=== PATIENT | female | born 1975 | race Caucasian/White ===

== ENCOUNTER 2021-11-29 10:09 | Outpatient (CLI) | payer MEDICAID, SELFPAY ==
[2021-11-29 14:07] LABS: Albumin* 3.8 g/dL (3.3-5.0); Chloride* 100 mmol/L (96-114); Potassium* 4.2 mmol/L (3.6-5.1); Sodium* 133 mmol/L (135-149)
[2021-11-29 14:09] LABS: Creatinine* 0.8 mg/dL (0.5-1.5); Estimated Glomerular Filt Rate 91 ml/min
[2021-11-29 14:10] LABS: Alanine Aminotransferase* 21 U/L (4-35); Alkaline Phosphatase* 78 U/L (40-150); Aspartate Amino Transferase* 25 U/L (12-35); Bilirubin Total* 0.3 mg/dL (0.1-1.5); Blood Urea Nitrogen* 6 mg/dL (5-24); Calcium* 8.9 mg/dL (8.4-10.6); Carbon Dioxide* 28 mmol/L (20-32); Glucose* 212 mg/dL (60-115)
== END 2021-11-29 10:10 | disposition home or self-care (01) ==
LOC: NFLDREF 10:10
PROVIDERS: PCP Family Medicine; Visit Provider Family Medicine
DX: R42 Dizziness and giddiness (principal); E66.01 Morbid (severe) obesity due to excess calories
CPT/HCPCS: 80053

== ENCOUNTER 2022-01-24 09:42 | Outpatient (CLI) | payer MEDICAID, SELFPAY ==
--- OUTSIDE RECORDS SUMMARY | 2022-01-24 09:45 | XMS_ITS | Encounter Summary ---
:1975 Author Organization [facility] Address [address] [place] [id number] Care Team Providers Name Role Phone Unavailable Primary Care Provider Unavailable Reason for Visit Reason Comments Follow up Encounter Details Date Type Department Care Team Description 12/02/2017 Office Visit [facility] Jacques Alcantara Polys ubstance dependence (HCC) (Primary Dx); Clinic - Jazmin Veliz MD Bipolar affective disorder i n remission (HCC) [address] [address] [address] [place] [address] Social History Tobacco Use Types Packs/Day Years Used Date Smoking Tobacco: Former Cigarettes 0 19 Quit : 03/01/2017 Smokeless Tobacco: Never Alcohol Use Standard Drinks/Week Comments Yes 1 (1 standard drink = 0.6 oz pure alcoho l) once a year Alcohol Habits Answer Date Recorded How often do you have a drink containing alcohol? Not asked How many drinks containing alcohol do you have on a typical Not asked day when you are drinking? How often do you have six or more drinks on one occasion? No t asked Comment: once a year 02/13/2014 Sex Assigned at Date Recorded Not on file documented as of this encounter Last Filed Vital Signs Vital Sign Reading Time Taken Comments Blood Pressure 110/80 12/02/2017 1:18 PM CDT Pulse 78 12/02/2017 1:18 PM CDT Temperature - - Respiratory Rate - - Oxygen Saturation 98% 12/02/2017 1:18 PM CDT Inhaled Oxygen Concentration - - Weight 96.1 kg (211 lb 14.4 oz) 12/02/2017 1:18 PM CDT Height 157.5 cm (5' 2) 12/02/2017 1:18 PM CDT Body Mass Index 38.76 12/02/2017 1:18 PM CDT documented in this encounter Progress Notes Jacques Alcantara MD - 12/02/2017 1:00 PM CDT SUBJECTIVE: 42 y.o. female for the following health concerns. Polysubstance dependence (HCC) - patient is back on both crack and methamphetamines. States that sheis entering into treatment on Thursday. She is currently in her 's home until she gets to treatment. Her last date of use per her report was 3 days ago. She is requesting that I fill benzodiazepines for her today. Bipolar affective disorder in remission (HCC) - patient states she is pretty much only been focusingon her drug use and not really taking her other medications. She does see psychiatry regularly. She is asking me about using her Adderall as well as diazepam today. Current Outpatient Prescriptions Medication Sig Dispense Refill ??? ADDERALL XR 15 mg oral extended release capsule 24 HR ??? cetirizine (ZYRTEC) 10 mg oral tablet Take 10 mg by mouth once daily. ??? Diaper,Brief, Adult,Disposable (DEPEND UNDERWEAR L-XL) 1 Each by [facility].(Non- Drug; Combo Route) route three times a day. 100 Each 3 ??? diazePAM (VALIUM) 10 mg oral tablet Take 1 tablet (10 mg) by mouth twice a day as needed. 30 tablet 1 ??? fluticasone (FLONASE) 50 mcg/actuation nasal spray Instill 2 sprays into EACH nare once daily. ??? omeprazole (PRILOSEC) 20 mg oral delayed release capsule Take 20 mg by mouth once daily before ameal. ??? rOPINIRole (REQUIP) 3 mg oral Tab Take 1 tablet (3 mg) by mouth once daily. 90 tablet 3 ??? topiramate (TOPAMAX) 100 mg oral tablet Take 1 tablet (100 mg) by mouth once daily. 90 tablet 3 ??? traZODone (DESYREL) 300 mg oral tablet TAKE 1 TABLET(300 MG) BY MOUTH AT BEDTIME NEEDED 90 tablet 1 ??? ziprasidone hcl (GEODON) 60 mg oral capsule Take 1 capsule (60 mg) by mouth at bedtime. (Patienttaking differently: Take 60 mg by mouth Twice a Day. ) 90 capsule 1 No current facility-administered medications for this visit. Allergies: Cat dander; Dog dander; and Tree and shrub pollen No LMP recorded (lmp unknown). Patient has had a hysterectomy. ROS: Feeling concerned Respiratory symptoms none No dyspnea or chest pain on exertion. Psych as above. OBJECTIVE: The patient appears in NAD. BP 110/80 Pulse 78 Ht 1.575 m (5' 2) Wt 96.1 kg (211 lb 14.4 oz) LMP (LMP Unknown) SpO2 98% BMI 38.76 kg/m?? ISAC. Lungs are clear, good air entry, no wheezes, rhonchi or rales. S1 and S2 normal, no murmurs, regular rate and rhythm. No edema. Psych - Judgment and mental status are not clear, patient has poor insight. Mood is anxious. ASSESSMENT/PLAN: Polysubstance dependence (HCC) - counseled patient and her 25 minutes on goals of treatment.Discussed common language as they are at odds currently but working towards the same goal. Reviewed getting into treatment Thursday is the most important thing. Discussed with safety concerns forhimself in the family. Reviewed trigger avoidance in addition to avoiding contact with her sister who herself is a large user. Bipolar affective disorder in remission (HCC) Discussed I defer to her psychiatrist for use of this but would encourage her not to use any controlled substances at this time. Pt to return if sx worsen or fail to improve, sooner as needed. Total of 25 minutes spent with pt >50% on counseling and/or coordination of cares. Options for treatment and follow-up care were reviewed with the patient and/or guardian. Maria Del Rosario Servin and/or guardian engaged in the decision making process and verbalized understanding of the optionsdiscussed and agreed with the final plan. documented in this encounter Plan of Treatment Not on filedocumented as of this encounter Visit Diagnoses Diagnosis Polysubstance dependence (HCC) - Primary Combinations of drug dependence excludin g opioid type drug, unspecified Bipolar affective disorder in remission (HCC) documented in this encounter
--- OUTSIDE RECORDS SUMMARY | 2022-01-24 09:45 | XMS_ITS | Encounter Summary ---
:1975 Author Organization [facility] Address [address] [place] [address] Care Team Providers Name Role Phone Unavailable Primary Care Provider Unavailable Reason for Referral Consultation (Routine) - Closed Specialty Diagnoses / Procedures Referred By Contact Refer red To Contact Spine/Back Specialist Diagnoses Acute right-sided low back pain with right-sided sciatica Jacques Alcantara MD Md, Not Listed [id number] [facility] [address] [place] [address] Referral ID Status Reason Start Date Expiration Date Visits V isits Requested Authorized [id number] Closed Specialty 07/29/2018 [address] Barboza [facility] [place] Reason for Visit Reason Comments Medication management Rx refill Back pain Back injury fell down steps (5) landed o n buttocks. x 1 month Encounter Details Date Type Department Care Team Description 07/29/2018 Office Visit [facility] Jacques Alcantara Acute right-sided low back pain with right-sided sciatica (Primary Dx); Clinic - Jazmin Veliz MD Seasonal allergic rhinitis d ue to other allergic trigger; [address] [facility] [address] esophageal reflux disease, esophagitis presence not specified; 100 Bipolar affective disorder i n remission ([facility]); [place] (restless [place] syndrome); [id number] Insomnia, unspecified type [phone] Social History Tobacco Use Types Packs/Day Years Used Date Smoking Tobacco: Every Day Cigarettes 0 19 L ast attempted to quit: 03/01/2017 Smokeless Tobacco: Never Alcohol Use Standard [...] Sign Reading Time Taken Comments Blood Pressure 120/80 07/29/2018 2:53 PM CDT Pulse 69 07/29/2018 2:53 PM CDT Temperature 36.6 ??C (97.8 ??F) 07/29/2018 2:53 PM CDT Respiratory Rate 16 07/29/2018 2:53 PM CDT Oxygen Saturation 97% 07/29/2018 2:53 PM CDT Inhaled Oxygen Concentration - - Weight 103 kg (227 lb 1.6 oz) 07/29/2018 2:53 PM CDT Height 157.5 cm (5' 2) 07/29/2018 2:53 PM CDT Body Mass Index 41.54 07/29/2018 2:53 PM CDT documented in this encounter Progress Notes Jacques Alcantara MD - 07/29/2018 3:00 PM CDT SUBJECTIVE: 43 y.o. female for the following health concerns. Acute right-sided low back pain with right-sided sciatica -patient is concerned of right-sided low back pain. Reports recent slip and fall down some stairs which acutely exacerbated her chronic back symptoms. Previously treated at [facility] [place] and felt they were quite good. Requesting pain m edication from us today. She just discharged from a drug abuse rehab facility and reports she is remaining sober at this time. Seasonal allergic rhinitis due to other allergic trigger -states that her allergies are already bothering her requesting refills on both her antihistamine and nasal steroid. Gastroesophageal reflux disease, esophagitis presence not specified -10 used to have issues with acid reflux requesting refill today. Bipolar affective disorder in remission (HCC) patient is requesting that I refill her psychiatric medications. She reports she is trying to get established with a new psychiatrist due to proximity. RLS (restless legs syndrome) -patient continues to struggle with restless legs and would like a refill on her Requip at all today Insomnia, unspecified type -patient reports trazodone is working well she is at 200 mg a day down from 400 mg that she reports psychiatry was prescribing. Current Outpatient Medications Medication Sig Dispense Refill ??? cetirizine (ZYRTEC) 10 mg oral tablet Take 1 tablet (10 mg) by mouth once daily. 90 tablet 3 ??? Diaper,Brief, Adult,Disposable (DEPEND UNDERWEAR L-XL) 1 Each by [facility].(Non- Drug; Combo Route) route three times a day. 100 Each 3 ??? diazePAM (VALIUM) 10 mg oral tablet Take 1 tablet (10 mg) by mouth twice a day as needed. 30 tablet 1 ??? fluticasone (FLONASE) 50 mcg/actuation nasal spray Instill 2 sprays into EACH nare once daily. 16 g 11 ??? hydrOXYzine HCl (ATARAX) 50 mg oral tablet TK 1/2 T PO QID PRA AND PANIC 1 ??? naproxen (NAPROSYN) 250 mg oral tablet Take 1 tablet (250 mg) by mouth twice a day as needed. 120 tablet 3 ??? omeprazole (PRILOSEC) 20 mg oral delayed release capsule Take 1 capsule (20 mg) by mouth once daily. 90 capsule 3 ??? rOPINIRole (REQUIP) 3 mg oral Tab Take 1 tablet (3 mg) by mouth once daily. 90 tablet 3 ??? traZODone (DESYREL) 100 mg oral tablet Take 2 tablets (200 mg) by mouth at bedtime as needed forSleep. 60 tablet 0 ??? ziprasidone hcl (GEODON) 60 mg oral capsule Take 1 capsule (60 mg) by mouth at bedtime. (Patienttaking differently: Take 80 mg by mouth twice a day. ) 90 capsule 1 No current facility-administered medications for this visit. Allergies: Cat dander; Dog dander; and Tree and shrub pollen No LMP recorded (lmp unknown). Patient has had a hysterectomy. ROS: Feeling poorly Respiratory symptoms none No dyspnea or chest pain on exertion. No abdominal pain, change in bowel habits. No urinary tract symptoms. MSK as above Psych as above. OBJECTIVE: The patient appears well, in NAD. BP 120/80 (BP Cuff Site: Left arm, BP Cuff Position: Sitting, BP Cuff Size: Large adult) Pulse 69 Temp 97.8 ??F (36.6 ??C) (Oral) Resp 16 Ht 1.575 m (5' 2) Wt 103 kg (227 lb 1.6 oz) LMP (LMP Unknown) SpO2 97% BMI 41.54 kg/m?? Ears normal. ISAC. Lungs are clear, good air entry, no wheezes, rhonchi or rales. S1 and S2 normal, no murmurs, regular rate and rhythm. No edema. Neck: -Inspection: no obvious deformity. -Palpation: no tenderness along the spinous processes, there is tenderness to palpation in the right lumbosacral paraspinous muscles and soft tissue on self palpation. -ROM: full to flexion, extension, side bends, rotation. -Strength: full and symmetrical to knee flexion, knee extension, hip flexion, hip adduction, hip abduction, ankle dorsiflexion, ankle plantarflexion. -Reflexes: patellar reflexes symmetrical and normal. ASSESSMENT/PLAN: Acute right-sided low back pain with right-sided sciatica - Plan: naproxen (NAPROSYN) 250 mg oral tablet, [facility] provided patient some naproxen and instructions on use along with food. Discussed home exercises and referral back to spine MD for physical therapy hopefully. Will await their recommendations. Seasonal allergic rhinitis due to other allergic trigger - Plan: cetirizine (ZYRTEC) 10 mg oral tablet, fluticasone (FLONASE) 50 mcg/actuation nasal spray refilled for patient today without changes. Gastroesophageal reflux disease, esophagitis presence not specified - Plan: omeprazole (PRILOSEC) 20mg oral delayed release capsule refilled for patient today without changes. Bipolar affective disorder in remission (HCC) discussed continue to work with psychiatrist if she does transition she should continue seeing her old psychiatrist until she is established with a new one. She expressed understanding. Discussed her psychiatrist should refill all of her psychiatric medications as they have been adjusting doses in recent weeks. RLS (restless legs syndrome) - Plan: rOPINIRole (REQUIP) 3 mg oral Tab refilled today. Insomnia, unspecified type - Plan: traZODone (DESYREL) 100 mg oral tablet - reviewed with patient that I will give her a one-month supply of the Requip but all of her other psychiatric medications need to be filled through psychiatry given their interactions with each other. She expressed her understanding. Pt to return if sx worsen or fail to improve, sooner as needed. Options for treatment and follow-up care were reviewed with the patient and/or guardian. Maria Del Rosario Servin and/or guardian engaged in the decision making process and verbalized understanding of the optionsdiscussed and agreed with the final plan. documented in this encounter Plan of Treatment Scheduled Referrals Name Type Priority Associated Diagnoses Order S chedule [facility] Follow Up Routine Acute right-sided l ow Ordered: 07/29/2018 back pain with right-sided sciatica documented as of this encounter Visit Diagnoses Diagnosis Acute right-sided low back pain with rig ht-sided sciatica - Primary Seasonal allergic rhinitis due to other allergic trigger Gastroesophageal reflux disease, esophag itis presence not specified Bipolar affective disorder in remission (HCC) RLS (restless legs syndrome) Restless legs syndrome (RLS) Insomnia, unspecified type documented in this encounter
--- OUTSIDE RECORDS SUMMARY | 2022-01-24 09:45 | XMS_ITS | Encounter Summary ---
:1975 Author Organization [facility] Address [address] [place] [address] Care Team Providers Name Role Phone Unavailable Primary Care Provider Unavailable Reason for Referral (Routine) - Auth-No PA/Ref Req Specialty Diagnoses / Procedures Referred By Contact Refer red To Contact Diagnoses Sacroiliac pain Robert Taveras MD Procedures IPC FLUORO GUIDED PROCEDURE [address] [place] [address] Referral ID Status Reason Start Date Expiration Date Visits V isits Requested Authorized [id number] Auth-No 09/22/2017 1 1 PA/Ref Req Reason for Visit Consultation (Routine) - Auth-No PA/Ref Req Specialty Diagnoses / Procedures Referred By Contact Refer red To Contact Pain Management Diagnoses Chronic bilateral low back pain without sciatica Martha Balderrama, Specialist, Comprehensive PA-C [facility] - [address] [place] [address] [facility] [address] [place], [place] [address] [address] [facility] [place] [address] Phone: Referral ID Status Reason Start Expiration Visits Visits Date Date Requested Authorized [id number] Auth-No Specialty 09/17/2017 1 1 PA/Ref Req Services Required Encounter Details Date Type Department Care Team Description 10/28/2017 Hospital Encounter [facility] Vivian Taveras, Comprehensive [facility] [address] [facility] [address] [place] [address] [place] [phone] [id number] Social History Tobacco Use Types Packs/Day Years [...] Sign Reading Time Taken Comments Blood Pressure 132/89 10/28/2017 11:10 AM CDT Pulse 88 10/28/2017 11:10 AM CDT Temperature - - Respiratory Rate - - Oxygen Saturation 97% 10/28/2017 11:10 AM CDT Inhaled Oxygen Concentration - - Weight - - Height - - Body Mass Index - - documented in this encounter Discharge Instructions Patient InstructionsGato Dutta APRN, COLLAR STITCHER - 10/28/2017 10:14 AM CDT HOME CARE INSTRUCTIONS ACTIVITY ??? Rest today ??? Do not work today ??? Resume normal activity tomorrow as tolerated. PAIN ??? You may experience soreness at the injection site for 1-2 days. ??? If pain, you may use an ice pack for 20 minutes every 2-4 hours for the first 24 hours ??? If pain, you may use a heating pad for 20 minutes every 2-4 hours for the first 24 hours ??? You may restart your current pain medications today. OTHER SYMPTOMS ??? You may experience numbness or weakness radiating into your legs or arms, (depending on the procedure location) that may persist for the day of your procedure. Until sensation and strength returns to normal, please use caution in walking, climbing stairs, stepping out of your vehicle, etc. ??? Common side effects of corticosteroids: o Not everyone will experience corticosteroid side effects. If side effects are experienced, they will gradually subside in the 3-7 day period following an injection. o Flushed face and/or chest o Feeling of warmth, particularly in face but could be overall feeling of warmth o Increased blood sugar in diabetic patients o Menstrual irregularities may occur. If taking hormone based- control, a supplemental method of control is recommended o Sleep disturbances and/or mood swings are possible o Leg cramps SAFETY ??? If sedation was administered, it is important for the rest of the day you do not: o Drive a vehicle or operate heavy machinery o Consume alcohol o Sign important documents or legal papers ??? Contact your physician if you have: o Fever >100.5 F within 2 weeks of the procedure o Signs of infection (redness, swelling, drainage at the site of needle entry) o New sustained weakness, >8 hours after the procedure If you have questions, please contact our office at [phone] between the hours of 8:00 am and 4:00 pm, Thursday through Thursday. After hours, if you need immediate attention, we recommend you go to the hospital emergency room. Please schedule a follow-up appointment for approximately four weeks with the [facility] after the procedure or with your referring provider. SEDATION AFTER CARE INSTRUCTIONS Today you were given medicine for pain or sedation. This medicine can cause you to: be sleepy, not think clearly, feel less coordinated. For 12 OR 24 hours after receiving the medicine: ?? Have an adult stay with you. Remain at home and rest during that time. You may not return to work. ?? To prevent [place], do not smoke without an adult present. ?? Be careful when you bathe, shower, cook, or use electrical devices. ?? Avoid rapid movement as dizziness may result. ?? Begin eating light foods, such as cereal or toast. Resume usual diet. ?? Do not drink alcohol for 24 hours. ?? Do not drive or operate any heavy equipment for at least 12 hours after sedation. ?? Delay important decision-making. Don't sign any important papers. ?? No pain meds or sleeping pills for 4 hours after last dose given before discharge. documented in this encounter Medications at Time of Discharge Medication Sig Dispensed Refills Start Date End Date diazePAM (VALIUM) 10 mg Take 1 tablet (10 30 tablet 1 11/13 oral tabletIndications: mg) by mouth twice Depression with anxiety a day as needed. ziprasidone hcl (GEODON) Take 1 capsule (60 90 capsule 1 60 mg oral mg) by mouth at capsuleIndications: bedtime. Bipolar affective disorder in remission (HCC) ADDERALL XR 15 mg oral 0 09/01/2017 extended release capsule 24 HR Diaper,Brief, 1 Each by 100 Each 3 01/04/2016 06/04/2020 Adult,Disposable (DEPEND Misc.(Non-Drug; UNDERWEAR L-XL) Combo Route) route Indications: Urinary three times a day. incontinence, unspecified type doxycycline hyclate Take 1 tablet (100 14 tablet 0 09/18/19 18 12/02/2017 (VIBRAMYCIN) 100 mg oral mg) by mouth twice tabletIndications: a day. Bronchitis oxymetazoline 0.05% Instill 2 sprays 15 mL 0 10/27/2017 10/30/2017 (AFRIN, OXYMETAZOLINE,) into EACH nare 0.05 % Nasal [place] nasal twice a day for 3 spray days. sodium chloride 0.65% Instill 1-2 Sprays 1 Bottle 11 201412/02/2017 (SALINE NASAL MIST) 0.65 into EACH nare % Nasal [place] every 1 (one) hour SprAIndications: Sinus as needed. headache, Dizziness topiramate (TOPAMAX) 100 Take 1 tablet (100 90 tablet 3 01/27/2018 mg oral mg) by mouth once tabletIndications: daily. Migraine without status migrainosus, not intractable, unspecified migraine type traZODone (DESYREL) 300 TAKE 1 TABLET(300 90 tablet 1 09/0107/29/2018 mg oral MG) BY MOUTH AT tabletIndications: BEDTIME NEEDED Bipolar affective disorder in remission (HCC) varenicline (CHANTIX) 1 Take 1 mg by mouth 0 12/02/2017 mg oral tablet 2 times daily with meals. documented as of this encounter Procedure Notes Robert Taveras MD - 10/28/2017 11:13 AM CDTProcedure(s): INJECT FOR SACROILIAC JOINT Pre-Procedure Diagnose(s): Sacroiliac joint dysfunction of right side Post-Procedure Diagnose(s): Sacroiliac joint dysfunction of right side [facility] SACROILIAC JOINT INJECTION Patient Name: Maria Del Rosario Servin Address: [address] [place] [address] Primary Care Provider: Martha Balderrama PA-C CHIEF COMPLAINT Low back pain INTERVAL HISTORY Maria Del Rosario Servin is a 42 y.o. female with a history of low back pain. PROCEDURE Right sacroiliac joint Injection with fluoroscopic guidance and contrast control. PROCEDURE DETAILS After written informed consent was obtained from the patient, the patient was escorted to the procedure room. The patient was placed in the prone position. A time out was conducted to verify patient identity, procedure to be performed, side, site, allergies and any special requirements. The skin over the lumbosacral region was prepped and draped in normal sterile fashion. Fluoroscopy was used to identify the posteroinferior region of the right sacroiliac joint. The skin was anesthetized with 2 mL of2% lidocaine with bicarbonate buffer. Using fluoroscopic guidance, a 22 gauge, 5?? Quincke spinal needle was advanced into the joint from an inferior lateral approach. After negative aspiration, 0.5 ml of Omnipaque contrast was injected showing intra-articular spread of contrast without evidence of intravascular spread. 3 mL of solution consisting of 80 mg of methylprednisolone and 2 cc of 2% lidocaine was injected slowly into the joint. After injection of the medication, the needle was removed. The patient had intravenous sedation during the procedure. The patient was monitored for blood pressure and oxygen saturation during the procedure. The patient was alert and responsive to questions throughout the procedure. The patient tolerated the procedure well and was observed in the post-procedural area. The patient was discharged without apparent complications. FRANK - 05/19/17: Per Johnathan Sy PA-C 06/02/17 dictation: L5-S1 fusion solid. Moderate stenosis of L5-S1 chronic and minimal disc bulge L4-5. ?? TREATMENTS TRIED: The patient has tried Physical Therapy - Somewhat helpful, Chiropractic - Yes somewhat helpful,??Therapeutic Injections Or Procedures: Yes 12/12/14 epidural - states was painful, ??Behavioral Health (sees command and control specialist currently), Surgery - Yes, L5-S1 fusion 10/2015 (per [facility] note, no further surgery recommended). The patient has tried Topamax/Topirimate, Celebrex, Ibuprofen/Advil (not helpful), Vicodin, Oxycontin/Oxycodone (helpful), and Flexeril (not helpful), methocarbamol (not helpful) DIAGNOSIS 1. Sacroiliac joint dysfunction PLAN 1. Performed a right sacroiliac joint injection. 2. The patient will be seen back in clinic within the next three to four weeks for evaluation of progress. Robert Taveras MD Diplomate of the [place] [employer]esthesiology, Pain Medicine documented in this encounter Miscellaneous Notes Addendum Note - Aleta Laurent - 10/28/2017 12:06 PM CDTEncounter addended by: Aleta Laurent on: 10/28/2017 12:06 PM
Actions taken: MAR adminis tration accepted Addendum Note - Gato Dutta APRN, CNP - 10/28/2017 11:27 AM CDTEncounter addended by: Gato Dutta APRN, CNP on: 10/28/2017 11:27 AM
Actions taken: Visit Navigator Flowsheet section accepted documented in this encounter Plan of Treatment Not on filedocumented as of this encounter Procedures Procedure Name Priority Date/Time Associated Diagnosis Comme nts IPC FLUORO GUIDED Routine 10/28/2017 11:06 AM Sacroiliac pain Results for this PROCEDURE 20 CDT procedure are i n the results section. documented in this encounter Results IPC Fluoro Guided Procedure 20 (10/28/2017 11:06 AM CDT) Specimen (Source) Anatomical Location Collection Method / Collectio n Time Received Time / Laterality Volume Narrative Sysdef, Ris Silent Scheduling - 10/29/19 18 11:06 AM CDT To access procedure report, please refer to Epic Chart Review under the Procedure tab. Robert Taveras MD IR ORDERABLE documented in this encounter Visit Diagnoses Diagnosis Sacroiliac pain - Primary Disorders of sacrum documented in this encounter Administered Medications Inactive Administered Medications - up to 3 most recent administrations Medication Order MAR Action Action Date Dose Rate Site FENTANYL (PF) 50 MCG/ML INJECTION Given 10/28/2017 10:50 AM CDT 50 mcg SOLUTION 1 dose, Starting on Thu10/28/17 at 1052, Until Thu10/28/17 at 1050 IOHEXOL 240 MG IODINE/ML INTRAVENOUS Given 10/28/2017 10:45 AM C DT Procedural SOLUTION 1 dose, Starting on Thu10/28/17 at 1033, Until Thu10/28/17 at 1045 LIDOCAINE (PF) 20 MG/ML (2 %) INJECTION Given 10/28/2017 10:45 A M CDT Procedural SOLUTION 1 dose, Starting on Thu10/28/17 at 1033, Until Thu10/28/17 at 1045 METHYLPREDNISOLONE ACETATE 80 MG/ML Given 10/28/2017 10:45 AM CD T Procedural SUSPENSION FOR INJECTION 1 dose, Starting on Thu10/28/17 at 1032, Until Thu10/28/17 at 1045 MIDAZOLAM (PF) 1 MG/ML INJECTION SOLUTIO N Given 10/28/2017 10:52 AM CDT 1 mg 1 dose, Starting on Thu10/28/17 at 1052, Until Thu10/28/17 at 1052 SODIUM BICARBONATE 1 MEQ/ML (8.4 %) Given 10/28/2017 10:45 AM CD T Procedural INTRAVENOUS SOLUTION 1 dose, Starting on Thu10/28/17 at 1032, Until Thu10/28/17 at 1045 documented in this encounter
--- OUTSIDE RECORDS SUMMARY | 2022-01-24 09:45 | XMS_ITS | Encounter Summary ---
:[address] [facility] Address [address] [place] [address] Care Team Providers Name Role Phone Jacques Alcantara MD Primary Care Provider [facility] Unavailable Medical Reason for Referral Consultation (Routine) - Closed Specialty Diagnoses / Procedures Referred By Contact Refer red To Contact Psychiatry Diagnoses Bipolar affective disorder in remission (HCC) Depression with anxiety Episodic drug abuse (HCC) Insomnia, unspecified type Jacques Alcantara MD Md, Not Listed [id number] [place] [address] Referral ID Status Reason Start Date Expiration Date Visits V isits Requested Authorized [id number] Closed Specialty 06/05/2020 06/05/2021 1 1 Services Required Comments [facility] [address] [address] [place] [address] ?? ~48.1 mi OR UI DESIGNER Reason for Visit Reason Comments Rx refill refill metications Encounter Details Date Type Department Care Team Description 06/05/2020 Virtual Visit [facility] Jacques Alcantara Bipolar aff ective disorder in remission (HCC) (Primary Dx); [facility] [place] Seasonal all ergic rhinitis due to other allergic trigger; [place] Acute right-sided low back p ain with right-sided sciatica; [address] Gastroesopha geal reflux disease; [address] Depression with anxiety; [place], [place] Episodic drug abuse (HCC); [phone] Insomnia, unspecified type [phone] Social History Tobacco Use Types Packs/Day Years Used Date Smoking Tobacco: Every Day Cigarettes 0 19 L ast attempted to quit: 03/01/2017 Smokeless Tobacco: Current Alcohol Use Standard Drinks/Week Comments Yes 1 [...] Assigned at Date Recorded Not on file COVID-19 Exposure Response Date Recorded In the last month, have you been in contact with No / Unsure 06/04/2020 1:33 PM 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 documented as of this encounter Progress Notes Jacques Alcantara MD - 06/05/2020 10:00 AM CST Maria Del Rosario Servin presents today via telehealth visit for Rx refill (refill metications) Bipolar affective disorder in remission (HCC)/Depression with anxiety states that she is currently living with her sister and she is sober however her sister at least the one I know has previously had multiple issues with drug use. Episodic drug abuse (HCC) patient reports she is currently sober. Insomnia, unspecified type Patient reports that she is still having issues sleeping. Seasonal allergic rhinitis due to other allergic trigger Would like refills on her allergy medication she has both year-round and seasonal issues requesting refill on Flonase and Zyrtec. Acute right-sided low back pain with right-sided sciatica - Patient takes 1 or 2 pills/day depending on the severity of her symptoms. Requesting refill today. Gastroesophageal reflux disease - Patient denies any overwhelming GERD symptoms associated with NSAID use. Would like to refill her acid reflux medicine today Problem list, Medications, and Allergies were reviewed in [email or web address] EMR. O: LMP (LMP Unknown) General: Calm, no acute distress Psych: Mood and behavior appropriate A/P: Maria Del Rosario was seen today for rx refill. Diagnoses and all orders for this visit: Bipolar affective disorder in remission (HCC) Depression with anxiety Episodic drug abuse (HCC) Insomnia, unspecified type - REFERRAL PSYCHIATRY -reviewed with patient establishing care with a psychiatrist to really start all medications and evaluate for efficacy. Discussed we will not be providing any of her psychiatry medications she expressed her understanding. Referral provided today to local psychiatrist in [facility] Seasonal allergic rhinitis due to other allergic trigger - cetirizine (ZYRTEC) 10 mg oral tablet; TAKE 1 TABLET BY MOUTH DAILY - fluticasone (FLONASE) 50 mcg/actuation nasal spray; SHAKE AND USE 2 SPRAYS IN EACH NOSTRIL DAILY refilled for patient today without changes Acute right-sided low back pain with right-sided sciatica - naproxen (NAPROSYN) 250 mg oral tablet; TAKE 1 TABLET BY MOUTH TWICE A DAY NEEDED refilled for patient today without changes Gastroesophageal reflux disease - omeprazole (PRILOSEC) 20 mg oral delayed release capsule; TAKE 1 CAPSULE BY MOUTH DAILY filled forpatient today without changes This visit was completed via interactive telehealth by Jacques Alcantara MD by audio only. The patient (or guardian) is aware the visit is a telehealth visit and verbally consents to proceeding, including use of outside records via Care Everywhere as needed. Present for the visit include Maria Del Rosario Servin and none. The visit was conducted via telehealth due to COVID-19 pandemic.. Patient is located at home. Provider is located at [facility]. Total time spent today for visit was 10 minutes and included: Direct [id number] time, Review of records and Coordination of care. Full vital signs not obtained due to telehealth. Any recorded vitals are self- reported by patient. Jacques Alcantara MD OR UI DESIGNER documented in this encounter Plan of Treatment Scheduled Referrals Name Type Priority Associated Diagnoses Order S [facility] REFERRAL PSYCHIATRY Referral Routine Bipolar affective dis order Ordered: 06/05/2020 in remission (HC C) Depression with anxiety Episodic drug ab use Insomnia, unspecified type documented as of this encounter Visit Diagnoses Diagnosis Bipolar affective disorder in remission (HCC) - Primary Seasonal allergic rhinitis due to other allergic trigger Acute right-sided low back pain with rig ht-sided sciatica Gastroesophageal reflux disease Esophageal reflux Depression with anxiety Dysthymic disorder Episodic drug abuse (HCC) Other, mixed, or unspecified nondependen t drug abuse, episodic Insomnia, unspecified type documented in this encounter Care Teams Manager Environmental Affairs Relationship Specialty Start Date End Date Jacques Alcantara MD PCP - General Family Medicine 06/05/20 [facility] PCP - Primary Care Clinic [facility] [address] [place] [address] documented as of this encounter
--- OUTSIDE RECORDS SUMMARY | 2022-01-24 09:45 | XMS_ITS | Encounter Summary ---
:1975 Author Organization [facility] Address [address] [place] [address] Care Team Providers Name Role Phone Unavailable Primary Care Provider Unavailable Reason for Referral Consultation (Routine) - Auth-No PA/Ref Req Specialty Diagnoses / Procedures Referred By Contact Refer red To Contact Pain Management Diagnoses Chronic bilateral low back pain without sciatica Martha Balderrama, Specialist, [facility] - [address] [facility] [address] [place] [phone] [place] [phone] Phone: Referral ID Status Reason Start Expiration Visits Visits Date Date Requested Authorized [id number] Auth-No Specialty 09/17/2017 1 1 PA/Ref Req Services Required Reason for Visit Reason Comments Rx refill Encounter Details Date Type Department Care Team Description 09/17/2017 Office Visit [facility] Martha Balderrama onic bilateral low back pain without sciatica (Primary Dx); Clinic - [place] SON[place] Obesity, unspecified classification, uns pecified obesity type, unspecified whether serious comorbidity present; [facility] [address] Cough; [address] Frank [address] Bronchitis [address] [place], [place] [phone] (Wo rk) Social History Tobacco Use Types Packs/Day Years [...] Sign Reading Time Taken Comments Blood Pressure 122/86 09/17/2017 12:51 PM CDT Pulse 99 09/17/2017 12:51 PM CDT Temperature 36.6 ??C (97.8 ??F) 09/17/2017 12:51 PM CDT Respiratory Rate 14 09/17/2017 12:51 PM CDT Oxygen Saturation - - Inhaled Oxygen Concentration - - Weight 99.8 kg (220 lb) 09/17/2017 12:51 PM CDT Height 154.9 cm (5' 1) 09/17/2017 12:51 PM CDT Body Mass Index 41.57 09/17/2017 12:51 PM CDT documented in this encounter Progress Notes Martha Balderrama PA-C - 09/17/2017 1:00 PM CDT [facility] Maria Del Rosario Servin 1975 CC: Rx refill SUBJECTIVE: Maria Del Rosario Servin is a 42 y.o. female presents for refill on oxycodone. She states she used to be a patient with Dr. Alcantara. Reviewed [employer] with her and she has been getting refills of Percocet from Vic WILHELM. She was told by him that she cannot get refills from him anymore and needs to get refillsfrom her primary doctor. Reviewing her notes, Dr. Graf referred her to pain management. She saw back in 2013. She was seen by Patti Mason DNP in March 2016 for same pain. She has spondylolisthesis of her lumbar spine. She also had a L5-S1 spinal fusion by Dr. Gavin Marks on November 07, 2015. Patient also has allergies including runny nose, itchy eyes, sneezing. She takes Zyrtec and Flonase for those. She also has a cough, productive with dark brown phlegm x 2 weeks. Also some shortness of breath. Denies any fever, chills, sweats, body aches, headache, lightheadedness, abdominal pain, nausea, vomiting, diarrhea, constipation. She states she had a cold last week. ROS: See HPI Medications: Current Outpatient Prescriptions on File Prior to Visit Medication Sig Dispense Refill ??? cetirizine (ZYRTEC) 10 mg oral tablet Take 10 mg by mouth once daily. ??? Diaper,Brief, Adult,Disposable (DEPEND UNDERWEAR L-XL) 1 Each by [facility] [place] [place].(Non- Drug; Combo Route) route three times a [...] by mouth once daily before ameal. ??? oxyCODONE-acetaminophen (PERCOCET) 10-325 mg oral Tab Take 1-2 Tabs by mouth every 6 (six) hoursas needed (pain). ??? rOPINIRole (REQUIP) 3 mg oral Tab Take 1 tablet (3 mg) by mouth once daily. 90 tablet 3 ??? sodium chloride 0.65% (SALINE NASAL MIST) 0.65 % Nasal [place] SprA Instill 1- 2 Sprays into EACH nare every 1 (one) hour as needed. 1 Bottle 11 ??? topiramate (TOPAMAX) 100 mg oral tablet Take 1 tablet (100 mg) by mouth once daily. 90 tablet 3 ??? traZODone (DESYREL) 300 mg oral tablet TAKE 1 TABLET(300 MG) BY MOUTH AT BEDTIME NEEDED 90 tablet 1 ??? varenicline (CHANTIX) 1 mg oral tablet Take 1 mg by mouth 2 times daily with meals. ??? ziprasidone hcl (GEODON) 60 mg oral capsule Take 1 capsule (60 mg) by mouth at bedtime. (Patienttaking differently: Take 60 mg by mouth Twice a Day. ) 90 capsule 1 No current facility-administered medications on file prior to visit. Allergies: Allergies as of 09/17/2017 - Reviewed 09/17/2017 Allergen Reaction Noted ??? Cat dander 04/07/2017 ??? Dog dander 04/07/2017 ??? Tree and shrub pollen 04/07/2017 PMHX: Past Medical History: Diagnosis Date ??? Asthma mild intermittant/ more inWinter ??? Bipolar disorder (HCC) [facility] ??? Chronic mental illness 1990 ??? Depression with anxiety ??? Heartburn ??? Insomnia trazadone tx works well ??? Lumbar vertebral fracture (HCC) 1988 L4 or L5 ??? RLS (restless legs syndrome) 2004 requip works well hs FHX: Family History Problem Relation Age of Onset ??? Negative Hx Father unknown ??? Diabetes Mother ??? Autism Son ??? Colon Cancer Maternal Grandmother ??? Drug Abuse Sister ??? Depression Sister ??? Mental Illness Sister ??? Cancer Sister stomach ??? Other Disease Son hereditary microspirtosis SHX: Social History Social History ??? Marital status: Single Spouse name: N/A ??? Number of children: 2 ??? 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 Smoking status: Former Smoker Packs/day: 0.00 Years: 19.00 Types: Cigarettes Quit date: 03/01/2017 ??? Smokeless tobacco: Never Used ??? Alcohol use 0.6 oz/week 1 Cans of beer per week Comment: once a year ??? Drug use: Yes Frequency: 7.0 times per week Types: Marijuana Comment: smokes once daily for back pain ??? Sexual activity: Yes Partners: Male Other Topics Concern ??? Not on file Social History Narrative ??? No narrative on file OBJECTIVE: Vitals: 09/17/17 1251 BP: 122/86 BP Cuff Site: Left arm BP Cuff Position: Sitting BP Cuff Size: Large adult Pulse: 99 Resp: 14 Temp: 97.8 ??F (36.6 ??C) TempSrc: Oral Weight: 99.8 kg (220 lb) Height: 1.549 m (5' 1) Body mass index is 41.57 kg/m??. General appearance: Patient is in NAD, A&Ox's 3, WN/WD, nontoxic Head: Normal cephalic, atraumatic Eyes: ISAC, EOMI, no injection Ears: TMI, no erythremia or effusion. Canals clear. Nose: Patent bilaterally without discharge or blood Throat: Clear and moist, no erythremia, enlargement or exudates Neck: Soft and supple without masses Heart: Regular rate and rhythm without murmurs Lungs: low pitched wheezing present in all field. No crackles, rhonchi Abdomen: Normal bowel sounds in all 4 quadrants, soft, non tender Skin: warm and dry without rashes seen. No swelling or ecchymosis. Psych: Alert and oriented, makes good eye contact, is directable and has appropriate responses to questions, no pressured speech, flight of thought and has good judgment and insight. ASSESSMENT/PLAN: Maria Del Rosario was seen today for rx refill. Diagnoses and all orders for this visit: Chronic bilateral low back pain without sciatica - REFERRAL PAIN MANAGEMENT Obesity, unspecified classification, unspecified obesity type, unspecified whether serious comorbidity present - HGB A1C (GLYCO HGB) OP Cough - XR CHEST PA & LAT; Future ?? Discussed back pain, diabetes, cough. Regarding Percocet, I recommended for her to get established with pain management again to determine best course of action. I will not prescribe Percocet in clinic today. She needs to be managed with pain management. ?? hemoglobin A1c is 5.8%. Discussed diet and exercise. Set goal to decrease soda intake and carbs. ?? Chest x-ray discussed. Normal xray. Will treat based off >2 weeks of cough and brown phlegm, and lung physical exam. Rx doxycycline , medication side effects discussed. ?? Pt will follow up next week for physical. ?? Red flags and ER precautions discussed ?? Call, RTC, or go to ER if symptoms worsen or persist. ?? Pt understands and agrees with plan. Total time spent was 30 mins,>50% spent in counseling and/or coordination of care. FARZANA Bains, MPH, PARaoulC [facility] [phone] documented in this encounter Plan of Treatment Scheduled Referrals Name Type Priority Associated Diagnoses Order S chedule REFERRAL PAIN MANAGEMENT Referral Routine Chronic bilatera l low Ordered: 09/17/2017 back pain without sciatica documented as of this encounter Procedures Procedure Name Priority Date/Time Associated Diagnosis Comme nts HGB A1C (GLYCO HGB) Routine 09/17/2017 1:14 PM Obesity, unspec ified Results for this OP CDT classification, procedure ar e in unspecified obesity the resu lts type, unspecified section. whether serious comorbidity present documented in this encounter Results XR CHEST PA & LAT (09/17/2017 1:24 PM CDT) Anatomical Region Laterality Modality Chest Radiographic Imaging Specimen (Source) Anatomical Collection Method Collection Time Re ceived Time Location / / Volume Laterality 09/17/2017 1:25 PM CDT Impressions 09/17/2017 1:25 PM CDT IMPRESSION: Normal exam. Narrative 09/17/2017 1:25 PM CDT EXAM: X-RAY CHEST (two views) DATE: 09/17/2017 1:15 PM COMPARISON: None submitted. CLINICAL DATA: Worsening cough. ADDITIONAL CLINICAL DATA: R05 Cough TECHNIQUE: PA and lateral views of the c hest were obtained. FINDINGS: Mediastinum: ??The cardiomediastinal con tours are within normal limits. Lungs: No infiltrates. Pleural spaces: No pleural effusions. Procedure Note Luis Azevedo MD - 09/17/2017Form atting of this note might be different from the original. EXAM: X-RAY CHEST (two views) DATE: 09/17/2017 1:15 PM COMPARISON: None submitted. CLINICAL DATA: Worsening cough. ADDITIONAL CLINICAL DATA: R05 Cough TECHNIQUE: PA and lateral views of the c hest were obtained. FINDINGS: Mediastinum: The cardiomediastinal conto urs are within normal limits. Lungs: No infiltrates. Pleural spaces: No pleural effusions. IMPRESSION IMPRESSION: Normal exam. Martha Balderrama PA-C XRAY ORDERABLE (ABNORMAL) HGB A1C (GLYCO HGB) OP (09/17/2017 1:14 PM CDT) P athologist Signature HGBA1C OP 5.8 (H) <=5.6 % 09/17/2017 [facility] 1:25 PM CDT [facility] [place] EST AVERAGE 120 (H) <=114 09/17/2017 [facility] GLUCOSE OP mg/dL 1:25 PM CDT [facility] - [facility] Specimen Anatomical Collection Method Collection Time Receive d Time (Source) Location / / Volume Laterality Blood Capillary / 09/17/2017 1:14 PM 8 1:14 Unknown CDT PM CDT Martha Balderrama PA-C CHEMISTRY ORDERABLE Performing Organization Address City/State/[facility] Code Phon e Number [address] [facility] [address] [place] [address] documented in this encounter Visit Diagnoses Diagnosis Chronic bilateral low back pain without sciatica - Primary Obesity, unspecified classification, uns pecified obesity type, unspecified whether serious comorbidity present Cough Bronchitis Bronchitis, not specified as acute or ch ronic Cough documented in this encounter
--- OUTSIDE RECORDS SUMMARY | 2022-01-24 09:45 | XMS_ITS | Encounter Summary ---
:[address] [facility] Address [address] [place] [address] Care Team Providers Name Role Phone Unavailable Primary Care Provider Unavailable Reason for Referral (Routine) - Closed Specialty Diagnoses / Procedures Referred By Contact Refer red To Contact Diagnoses Screening for breast cancer Jacques Alcantara [place] [address] [address] [place] [id number] Referral ID Status Reason Start Date Expiration Date Visits Requ ested Visits Authorized [id number] Closed 01/27/2018 01/27/2019 1 1 Reason for Visit Reason Onset Date Comments Lab draw Rx refill Flu Vaccine 01/27/2018 Encounter Details Date Type Department Care Team Description 01/27/[address] [facility] Jacques Alcantara olic syndrome (Primary Dx); Clinic - Jazmin Veliz MD Elevated fasting blood sugar ; [address] Hyper[address] ipidemia, unspecified hyperlipidemia type; 100 Seasonal allergic rhinitis d ue to other allergic trigger; SIMA Wu Gastroesophag eal reflux disease, esophagitis presence not specified; [id number] Screening for breast cancer; [phone] History of drug abuse; Need for influe nza vaccination Social History Tobacco Use Types Packs/Day Years [...] Sign Reading Time Taken Comments Blood Pressure 104/82 01/27/2018 10:50 AM CDT Pulse 84 01/27/2018 10:50 AM CDT Temperature 37 ??C (98.6 ??F) 01/27/2018 10:50 AM CDT Respiratory Rate 16 01/27/2018 10:50 AM CDT Oxygen Saturation 95% 01/27/2018 10:50 AM CDT Inhaled Oxygen Concentration - - Weight 96.3 kg (212 lb 6.4 oz) 01/27/2018 10:50 AM CDT Height 157.5 cm (5' 2) 01/27/2018 10:50 AM CDT Body Mass Index 38.85 01/27/2018 10:50 AM CDT documented in this encounter Progress Notes Jacques Alcantara MD - 01/27/2018 10:30 AM CDT SUBJECTIVE: Maria Del Rosario Servin is a 42 y.o. male presenting for the following health concerns. Metabolic syndrome/Elevated fasting blood sugar - patient initially here for annual exam however showed up very late for her appointment so we will just do her fasting labs that she is fasting. Previously elevated blood sugar fasting and A1c borderline Will recheck in follow-up today. Counseled on regular physical activity and watching carbohydrates. Hyperlipidemia, unspecified hyperlipidemia type - Plan: LIPID PROFILE CASCADE OP previously elevatedcholesterol levels will recheck today spent 18 months since we've looked at these. Seasonal allergic rhinitis due to other allergic trigger - requesting fill for Zyrtec for patient today as she is in a treatment center and she needs prescriptions for each medication she is taking. Gastroesophageal reflux disease, esophagitis presence not specified - requesting fill for omeprazolefor the same reason. Screening for breast cancer -patient will like her breast cancer screening mammogram done. She denies any breast lumps or changes to breast tissue. History of drug abuse patient is currently going through another 30 day treatment program. She tested positive for THC on recent test after her most recent 30 day program. Current Outpatient Prescriptions Medication Sig Dispense Refill ??? cetirizine (ZYRTEC) 10 mg oral tablet Take 1 tablet (10 mg) by mouth once daily. 90 tablet 3 ??? Diaper,Brief, Adult,Disposable (DEPEND UNDERWEAR L-XL) 1 [place] [facility] [place]Non- [place]; Combo Route) route three times a [...] Dog dander; and Tree and shrub pollen ROS: Feeling Better Respiratory symptoms mild allergies worse in the fall. No dyspnea or chest pain on exertion. No neurological complaints. Psych as above. OBJECTIVE: The patient appears well, in NAD. BP 104/82 (BP Cuff Site: Left arm, BP Cuff Position: Sitting, BP Cuff Size: Large adult) Pulse 84 Temp 98.6 ??F (37 ??C) (Oral) Resp 16 Ht 1.575 m (5' 2) Wt 96.3 kg (212 lb 6.4 oz) LMP (LMP Unknown) SpO2 95% BMI 38.85 kg/m?? ISAC. Lungs are clear, good air entry, no wheezes, rhonchi or rales. S1 and S2 normal, no murmurs, regular rate and rhythm. No edema. Psych - Judgment and mental status are Thai herbal, patient has poor insight. Mood is elevated and somewhat labile. ASSESSMENT/PLAN: Metabolic syndrome/Elevated fasting blood sugar - Plan: HGB A1C (GLYCO HGB) OP reviewed with patientcontinue to focus on a 5-10 pound weight loss in addition to regular physical activity. We'll followup on lab work is available. Hyperlipidemia, unspecified hyperlipidemia type - Plan: LIPID PROFILE CASCADE OP reviewed previouslyelevated however still low risk. Continue healthy eating goals and follow-up on lab work is available. Seasonal allergic rhinitis due to other allergic trigger - Plan: cetirizine (ZYRTEC) 10 mg oral tablet filled medication for patient today to comply with her treatment center rules Gastroesophageal reflux disease, esophagitis presence not specified - Plan: omeprazole (PRILOSEC) 20mg oral delayed release capsule filled medication for patient today as above Screening for breast cancer - Plan: MAMMO DIGITAL SCREENING BI follow up on results once complete. History of drug abuse encouraged patient to continue working her program and she had mentioned moving in with a friend I discouraged this today and stated she should move to a sober living house until she is further and do her sobriety. She expressed her understanding. Return to clinic if sx worsen or fail to improve, sooner as needed. Options for treatment and follow-up care were reviewed with the patient and/or guardian. Maria Del Rosario Servin and/or guardian engaged in the decision making process and verbalized understanding of the optionsdiscussed and agreed with the final plan. W documented in this encounter Miscellaneous Notes Addendum Note - Siobhan Carey CMA - 01/27/2018 10:30 AM CDT Addended by: SIOBHAN CAREY on: 01/27/2018 03:18 PM Modules accepted: Orders, SmartSet documented in this encounter Plan of Treatment Not on filedocumented as of this encounter Procedures Procedure Name Priority Date/Time Associated Diagnosis Comme nts LIPID PROFILE Routine 01/27/2018 11:09 Hyperlipidemia, Results for this CASCADE OP AM CDT unspecified procedure are i n hyperlipidemia type the resu lts section. HGB A1C (GLYCO Routine 01/27/2018 11:09 Elevated fasting blood Results for this HGB) OP AM CDT sugar procedure are i n the results section. documented in this encounter Results MAMMO DIGITAL SCREENING BI (01/27/2018 11:28 AM CDT) Anatomical Region Laterality Modality Breast Bilateral Radiographic Imaging Specimen (Source) Anatomical Location Collection Method / Collectio n Time Received Time / Laterality Volume Impressions 01/27/2018 12:11 PM CDT : NEGATIVE There is no mammographic evidence of mal ignancy. ?? RECOMMENDATION: ? - A screening mammogram in 1 year . BI-RADS: Overall: 1 - Negative The patient will be notified of the resu lts. REPORT SIGNED BY Joey Wynn MD Narrative 01/27/2018 12:11 PM CDT EXAM: MAMMO DIGITAL SCREENING BI REASON FOR EXAM: Screening for breast cancer COMPARISON: ??Compared to: 02/15/2015 [facility] MMO DIGITAL SCREENING BI FINDINGS: The breasts have scattered areas of fibr oglandular density. ??No significant masses, calcifications, or o ther findings are seen in either breast. ??There has been no significant interval change. Current study was evaluated with Compute r Aided Detection (CAD) system. ?? Jacques Alcantara MD MAMMO ORDERABLE (ABNORMAL) LIPID PROFILE CASCADE OP (01/27/2018 11:09 AM CDT) [facility] Method Time Signature CHOLESTEROL OP 222 (H) <=200 01/27/2018 [facility] mg/dL 11:41 AM CDT [facility] TRIGLYCERIDES 98 <150 01/27/2018 [facility] PROFILE OP mg/dL 11:41 AM CDT [facility] LDL CHOL, CALC OP 154 (H) <100 01/27/[facility] 11:41 AM CDT [facility] HDL CHOLESTEROL 48 >=40 01/27/[facility] mg/dL 11:41 AM CDT [facility] CHOL/HDL RATIO OP 4.6 0.0 - 4.9 01/27/2018 [facility] 11:41 AM CDT [facility] SPECIMEN TYPE 01/27/2018 [facility] 11:41 AM CDT [facility] Specimen Anatomical Collection Method / Collection Time Recei philipp Time (Source) Location / Volume Laterality Blood Venipuncture / 01/27/2018 11:09 8 Unknown AM CDT 11:20 AM CDT Narrative [facility] - 01/27/2018 11:41 AM CDT LDL CHOLESTEROL REFERENCE RANGES: (FOR PATIENTS W/O HEART DISEASE) <100 mg/dL = Optimal 100-129 mg/dL = Near/Above Optimal 130-159 mg/dL = Borderline High 160-189 mg/dL = High >/= 190 mg/dL = Very High Jacques Alcantara MD CHEMISTRY ORDERABLE Performing Organization Address [facility] Phon e Number [address] [address], [facility] (ABNORMAL) HGB A1C (GLYCO HGB) OP (01/27/2018 11:09 AM CDT) athologist Signature HGBA1C OP 6.0 4.5 - 6.2 01/27/2018 [facility] % 11:33 AM CDT [facility] EST AVERAGE 126 (H) <=114 01/27/2018 [facility] GLUCOSE OP mg/dL 11:33 AM [facility] Specimen Anatomical Collection Method / Collection Time Recei philipp Time (Source) Location / Volume Laterality Blood Venipuncture / 01/27/2018 11:09 8 Unknown AM CDT 11:20 AM CDT Jacques Alcantara MD CHEMISTRY ORDERABLE Performing Organization Address [facility] Phon e Number [address] [address], [facility] documented in this encounter Visit Diagnoses Diagnosis Metabolic syndrome - Primary Dysmetabolic Syndrome X Elevated fasting blood sugar Impaired fasting glucose Hyperlipidemia, unspecified hyperlipidem ia type Seasonal allergic rhinitis due to other allergic trigger Gastroesophageal reflux disease, esophag itis presence not specified Screening for breast cancer Breast screening, unspecified History of drug abuse (HCC) Other, mixed, or unspecified nondependen t drug abuse, in remission Need for influenza vaccination Need for prophylactic vaccination and in oculation against influenza Screening for breast cancer Breast screening, unspecified documented in this encounter
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
--- OUTSIDE RECORDS SUMMARY | 2022-01-24 09:45 | XMS_ITS | Encounter Summary ---
:1975 Author Organization [facility] Address [address] [place] [address] Care Team Providers Name Role Phone Unavailable Primary Care Provider Unavailable Reason for Visit Reason Comments Ear problem Pt mentions that she has bee n having left ear pain for about 3 days. Encounter Details Date Type Department Care Team Description 02/09/2018 Urgent Care [facility] Lucila Jacques Acute ot itis externa Visit Health Ur[facility] - SONYA Guevara of left ear, [place] unspecified type [address] [place] [address] Rd C (Primary Dx ) [address] [address] Social History Tobacco Use Types Packs/Day Years [...] Sign Reading Time Taken Comments Blood Pressure 129/92 02/09/2018 6:12 PM CDT Pulse 97 02/09/2018 6:12 PM CDT Temperature 36.2 ??C (97.2 ??F) 02/09/2018 6:12 PM CDT Respiratory Rate 18 02/09/2018 6:12 PM CDT Oxygen Saturation 95% 02/09/2018 6:12 PM CDT Inhaled Oxygen Concentration - - Weight 96.2 kg (212 lb) 02/09/2018 6:12 PM CDT Height 157.5 cm (5' 2) 02/09/2018 6:12 PM CDT Body Mass Index 38.78 02/09/2018 6:12 PM CDT documented in this encounter Patient Instructions Patient InstructionsCHOCO Frias - 02/09/2018 6:10 PM CDT Images from the original note were not included. - Comfort measures (fluids, rest, nutrition, fever and pain control) - Heat over ear(s) for comfort. - Tylenol or motrin (with food) for fever and/or pain - Avoid using Q-tips in the ear canals - Please follow all instructions, complete all medication ordered, and see your personal health careprovider about two weeks after medication is finished for a recheck to ensure the ear problem has resolved. Lucila Paez) SONYA Jacques [facility] - Urgent Care Otitis Externa WHAT YOU NEED TO KNOW: Otitis externa, or swimmer's ear, is an infection in the outer ear canal. This canal goes from the outside of the ear to the eardrum. DISCHARGE INSTRUCTIONS: Return to the emergency department if: ?? You have severe ear pain. ?? You are suddenly unable to hear at all. ?? You have new swelling in your face, behind your ears, or in your neck. ?? You suddenly cannot move part of your face. ?? Your face suddenly feels numb. Contact your healthcare provider if: ?? You have a fever. ?? Your signs and symptoms do not get better after 2 days of treatment. ?? Your signs and symptoms go away for a time, but then come back. ?? You have questions or concerns about your condition or care. Medicines: ?? NSAIDs , such as ibuprofen, help decrease swelling, pain, and fever. This medicine is available with or without a doctor's order. NSAIDs can cause stomach bleeding or kidney problems in certain people. If you take blood thinner medicine, always ask if NSAIDs are safe for you. Always read the medicine label and follow directions. Do not give these medicines to children under 6 months of age withoutdirection from your child's healthcare provider. ?? Acetaminophen decreases pain and fever. It is available without a doctor's order. Ask how much totake and how often to take it. Follow directions. Acetaminophen can cause liver damage if not taken correctly. ?? Ear drops that contain an antibiotic may be given. The antibiotic helps treat a bacterial infection. You may also be given steroid medicine. The steroid helps decrease redness, swelling, and pain. ?? Take your medicine as directed. Contact your healthcare provider if you think your medicine is not helping or if you have side effects. Tell him or her if you are allergic to any medicine. Keep a list of the medicines, vitamins, and herbs you take. Include the amounts, and when and why you take them. Bring the list or the pill bottles to follow-up visits. Carry your medicine list with you in case of an emergency. Follow up with your healthcare provider as directed: Write down your questions so you remember to ask them during your visits. How to use eardrops: ?? Lie down on your side with your infected ear facing up. ?? Carefully drip the correct number of eardrops into your ear. Have another person help you if possible. ?? Gently move the outside part of your ear back and forth to help the medicine reach your ear canal. ?? Stay lying down in the same position (with your ear facing up) for 3 to 5 minutes. Prevent otitis externa: ?? Do not put cotton swabs or foreign objects in your ears. ?? Wrap a clean moist washcloth around your finger, and use it to clean your outer ear and remove extra ear wax. ?? Use ear plugs when you swim. Dry your outer ears completely after you swim or bathe. ?? Copyright [employer] 2017 Information is for End User's use only and may not be sold, redistributed or otherwise used for commercial purposes. All illustrations and images included in CareNotes?? are the copyrighted property of [employer], [employer]. or [employer] The above information is an vocational aide only. It is not intended as medical advice for individual conditions or treatments. Talk to your doctor, nurse or pharmacist before following any medical regimen to see if it is safe and effective for you. documented in this encounter Progress Notes CHOCO Frias - 02/09/2018 6:10 PM CDT Subjective: Ear pain There is pain in the left ear. This is a new problem. The current episode started in the past 7 days. The problem occurs constantly. The problem has been gradually worsening. There has been no fever. The pain is mild. Pertinent negatives include no abdominal pain, coughing, diarrhea, ear discharge, hea daches, hearing loss, neck pain, rash, rhinorrhea, sore throat or vomiting. She has tried acetaminophen for the symptoms. The treatment provided mild relief. There is no history of a chronic ear infection, hearing loss or a tympanostomy tube. Review of Systems Constitutional: Negative. Negative for fever. HENT: Positive for ear pain. Negative for congestion, dental problem, ear discharge, hearing loss, postnasal drip, rhinorrhea, sinus pain, sinus pressure, sore throat and tinnitus. Eyes: Negative. Respiratory: Negative for cough. Cardiovascular: Negative. Gastrointestinal: Negative for abdominal pain, diarrhea and vomiting. Musculoskeletal: Negative for neck pain. Skin: Negative for rash. Allergic/Immunologic: Positive for environmental allergies. Neurological: Negative for headaches. Objective: BP (!) 129/92 (BP Cuff Site: Right arm, BP Cuff Position: Sitting, BP Cuff Size: Regular adult) Pulse 97 Temp 97.2 ??F (36.2 ??C) (Oral) Resp 18 Ht 1.575 m (5' 2) Wt 96.2 kg (212 lb) LMP (LMP Unknown) SpO2 95% BMI 38.78 kg/m?? Physical Exam Constitutional: She is oriented to person, place, and time. She appears well- developed and well-nourished. No distress. HENT: Head: Normocephalic and atraumatic. Right Ear: External ear normal. Nose: Nose normal. Mouth/Throat: Oropharynx is clear and moist. No oropharyngeal exudate. Left ear is minimally tender to touch in the superior aspect of the auricle. There is minimal tenderness in the ear canal with traction on the outer ear. The canal is mildly erythematous on the left with no swelling. There is no drainage in the canal. Left TM has a few minimally hyperemic vessels on the surface There is no pre-or post auricular adenopathy bilaterally. No mastoid tenderness bilaterally. Eyes: Conjunctivae and EOM are normal. Right eye exhibits no discharge. Left eye exhibits no discharge. Neck: Normal range of motion. Neck supple. No JVD present. Cardiovascular: Normal rate and normal heart sounds. Exam reveals no gallop and no friction rub. No murmur heard. Pulmonary/Chest: Effort normal and breath sounds normal. No stridor. No respiratory distress. She has no wheezes. She has no rales. She exhibits no tenderness. Musculoskeletal: Normal range of motion. She exhibits no edema, tenderness or deformity. Lymphadenopathy: She has no cervical adenopathy. Neurological: She is alert and oriented to person, place, and time. Skin: Skin is warm and dry. She is not diaphoretic. Psychiatric: She has a normal mood and affect. Nursing note and vitals reviewed. Assessment/Plan: Maria Del Rosario was seen today for ear problem. Diagnoses and all orders for this visit: Acute otitis externa of left ear, unspecified type - ofloxacin 0.3% (FLOXIN) 0.3 % Otic Drop; Instill 10 drops into the LEFT ear once daily for 7 days.Lie on right side x 15 minutes after instilling drops into left canal Plan: Comfort measures Tylenol for pain (patient is on lithium and cannot take ibuprofen) Ofloxacin into left ear canal daily ??7 days. Reviewed instructions for lying on right side for 15 minutes each instillation. Reinforced no Q-tips in ear canals. Heat over ear for comfort. Written recommendations provided. PCP if not improved. Lucila Jacques PA-C ([place]) [facility] documented in this encounter Plan of Treatment Not on filedocumented as of this encounter Visit Diagnoses Diagnosis Acute otitis externa of left ear, unspec ified type - Primary documented in this encounter
--- OUTSIDE RECORDS SUMMARY | 2022-01-24 09:45 | XMS_ITS | Encounter Summary ---
:1975 Author Organization [facility] Address [address] [place] [address] Care Team Providers Name Role Phone Unavailable Primary Care Provider Unavailable Reason for Visit (Routine) - Closed Specialty Diagnoses / Procedures Referred By Contact Refer red To Contact Diagnoses Screening for breast cancer Jacques Alcantara [place] [address] [address] [place] [address] Referral ID Status Reason Start Date Expiration Date Visits Requ ested Visits Authorized [id number] Closed 01/27/2018 01/27/2019 1 1 Encounter Details Date Type Department Care Team Description 01/27/2018 Ancillary Procedure [facility] Screening for breast Imaging - Emma cancer M[facility] [address] [place] [phone] Social History Tobacco Use Types Packs/Day Years [...] on file documented as of this encounter Plan of Treatment Not on filedocumented as of this encounter Procedures Procedure Name Priority Date/Time Associated Diagnosis Comme nts MAMMO DIGITAL Routine 01/27/2018 11:28 AM Screening for breast Results for this SCREENING BI CDT cancer procedure are i n the results section. [...] system. ?? Jacques Alcantara MD MAMMO ORDERABLE documented in this encounter Visit Diagnoses Diagnosis Screening for breast cancer Breast screening, unspecified documented in this encounter
--- OUTSIDE RECORDS SUMMARY | 2022-01-24 09:45 | XMS_ITS | Encounter Summary ---
:[address] [facility] Address [address] [place] [id number] Care Team Providers Name Role Phone Unavailable Primary Care Provider Unavailable Encounter Details Date Type Department Care Team Description 09/17/[address] [facility] [address] [facility] [address] [place], [place] [address] Social History Tobacco Use Types Packs/Day Years [...] Name Priority Date/Time Associated Diagnosis Comme nts XR CHEST PA & LAT Routine 09/17/2017 1:24 PM Cough Resu lts for this CDT procedure are i n the results section. documented in this encounter Results XR CHEST [...] Normal exam. Martha Balderrama PA-C XRAY ORDERABLE documented in this encounter Visit Diagnoses Diagnosis Cough documented in this encounter
--- OUTSIDE RECORDS SUMMARY | 2022-01-24 09:45 | XMS_ITS | Encounter Summary ---
:1975 Author Organization [facility] Address [address] [place] [address] Care Team Providers Name Role Phone Unavailable Primary Care Provider Unavailable Reason for Visit Reason Comments Ear Pain Encounter Details Date Type Department Care Team Description 10/27/2017 Emergency [facility] Christin Jimenez MD [facility] - [id number] [facility] [address] [place] [address] [address] [address] [place] [address] [phone] Social History Tobacco Use Types Packs/Day Years [...] on file documented as of this encounter Discharge Instructions AttachmentsThe following attachments cannot be sent through Care Everywhere. HEARING LOSS (SERBIAN)documented in this encounter Medications at Time of [...] OXYMETAZOLINE,) into EACH nare 0.05 % Nasal [place] nasal twice a day for 3 spray days. sodium chloride 0.65% Instill 1-2 Sprays 1 Bottle 11 201412/02/2017 (SALINE NASAL MIST) 0.65 into EACH nare % Nasal [place] every 1 (one) hour SprAIndications: Sinus as [...] with meals. documented as of this encounter ED Notes Iván Wren RN - 10/27/2017 2:08 PM CDT Pt discharged Instructions given Christin Jimenez MD - 10/27/2017 2:04 PM CDT Chief Complaint Patient presents with ??? Ear Pain : HPI: Maria Del Rosario Servin, 42 y.o. female, presents with Difficulty hearing out of her right ear that has been present for the last 3 days. She denies any fever, discharge or drainage, pain, does describe a little bit of pressure. She's been taking a Z-Raza which she was prescribed for pneumonia for approximately 7 days without any improvement of her symptoms. She denies any tinnitus or vertigo. She denies any sore throat, numbness, tingling, weakness in her arms or legs, trouble speaking, or swallowing, orheadache. She denies any trauma to the ear. PMH: Past Medical History: Diagnosis Date ??? Asthma mild intermittant/ more inWinter ??? Bipolar disorder ([facility]) 1999 [facility] ??? Chronic mental illness 1990 ??? Depression with anxiety ??? Heartburn ??? Insomnia trazadone tx works well ??? Lumbar vertebral fracture ([facility]) 1987 L4 or L5 ??? RLS (restless legs syndrome) 2003 requip works well hs Medications: Current Outpatient Prescriptions: ADDERALL XR 15 mg oral extended release capsule 24 HR cetirizine (ZYRTEC) 10 mg oral tablet Diaper,Brief, Adult,Disposable (DEPEND UNDERWEAR L-XL) diazePAM (VALIUM) 10 mg oral tablet doxycycline hyclate (VIBRAMYCIN) 100 mg oral tablet fluticasone (FLONASE) 50 mcg/actuation nasal spray omeprazole (PRILOSEC) 20 mg oral delayed release capsule oxymetazoline 0.05% (AFRIN, OXYMETAZOLINE,) 0.05 % Nasal [place] nasal spray rOPINIRole (REQUIP) 3 mg oral Tab sodium chloride 0.65% (SALINE NASAL MIST) 0.65 % Nasal [place] SprA topiramate (TOPAMAX) 100 mg oral tablet traZODone (DESYREL) 300 mg oral tablet varenicline (CHANTIX) 1 mg oral tablet ziprasidone hcl (GEODON) 60 mg oral capsule Allergies: Allergies Allergen Reactions ??? Cat Dander ??? Dog Dander ??? Tree And Shrub Pollen Social History Social History ??? Marital status: [...] once a year ??? Drug use: Yes Types: Marijuana, Cocaine-crack Comment: 09/21/17 - Denies continued THC use, admitted to use of crack for pain ??? Sexual activity: Yes Partners: Male Other Topics Concern ??? Not on file Social History Narrative ??? No narrative on file Family History: Non contributory ROS: A full ROS was performed and negative aside from that mentioned in HPI. PE: Vital signs reviewed per Epic. Temperature: 98.3 ??F (36.8 ??C) Pulse: 87 Respirations: 20 BP: (!) 153/89 SpO2: 99 % Physical Exam Constitutional:Oriented to person, place, and time. HENT: Head: Normocephalic and atraumatic. Eyes: Conjunctivae and EOM are normal. Pupils are equal, round, and reactive to light. Ears: Clear bilaterally, TM intact bilaterally, No pain on retraction of pinna or tenderness over mastoid.Right tympanic membrane appears bulging but no erythema or effusion is present Nose: No nasal turbinate edema OP: Mucus membraines moist. Posterior pharynx without erythema, swelling or asymmetry. Neck: Neck supple. No Lymphadenopathy. No stridor. No meningismus Neurological: Alert and oriented to person, place, and time. MSK: Full range of motion of all extremities. Skin: Skin is warm and dry. There is no edema, swelling or rashes appreciated. No asymmetry. Psychiatric: Normal mood and affect. MDM: Maria Del Rosario Servin, 42 y.o. female, presents with difficulty hearing out of right ear. At this point I suspect this is likely from eustachian tube dysfunction given the appearance of the tympanic membrane and the acute nature of the presentation.. There is no associated effusion, or erythema to suggest an underlying infection requiring antibiotics. She has a normal neurologic exam, in no associated tinnitus or headache to suggest intracranial mass at this point, however for symptoms persist I do want her to follow up with her primary care doctor to discuss audiology testing and additional imaging as needed. IMPRESSION: 1. Right ear diminished hearing 2. Eustachian tube dysfunction Plan: Discharge. We discussed indications to return to the urgency center or ER, the specific need for close follow up with primary physician and indications that the patient should seek medical attention emergently. New Prescriptions OXYMETAZOLINE 0.05% (AFRIN, OXYMETAZOLINE,) 0.05 % NASAL SPRAY NASAL SPRAY Instill 2 sprays into EACH nare twice a day for 3 days. Christin Jimenez MD Iván Wren RN - 10/27/2017 1:55 PM CDT 42 yo female pt States she can't hear out of her rt ear documented in this encounter Plan of Treatment Not on filedocumented as of this encounter Visit Diagnoses Diagnosis Decreased hearing of right ear - Primary documented in this encounter
--- OUTSIDE RECORDS SUMMARY | 2022-01-24 09:45 | XMS_ITS | Encounter Summary ---
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 documented as of this encounter Plan of Treatment Not on filedocumented as of this encounter Visit Diagnoses Not on filedocumented in this encounter
--- OUTSIDE RECORDS SUMMARY | 2022-01-24 09:45 | XMS_ITS | Clinical Summary ---
:1975 Author Organization [facility] Address [address] [place] [address] Care Team Providers Name Role Phone [facility] Unavailable Allergies Active Allergy Reactions Severity Noted Date Comments Cat Dander 04/07/2017 Dog Dander 04/07/2017 Tree And Shrub Pollen 04/07/2017 Medications Medication Sig Dispensed Refills Start Date End Date Status ziprasidone hcl Take 1 capsule 90 capsule 1 08/27/2016 Active (GEODON) 60 mg oral (60 mg) by mouth capsuleIndications: at bedtime. Bipolar affective disorder in remission (HCC) Additional Information Patient taking differently: 80 mg oral TWICE A DAY, Other, Reported on 07/29/2018 diazePAM (VALIUM) 10 mg oral Take 1 tablet (10 30 tablet 1 10/2016 Active tabletIndications: Depression mg) by mouth twice a with anxiety day as needed. traZODone (DESYREL) 100 mg oral Take 2 tablets (200 60 tablet 0 07/29/2018 Active tabletIndications: Insomnia, mg) by mouth at unspecified type bedtime as needed for Sleep. cetirizine (ZYRTEC) 10 mg oral TAKE 1 TABLET BY 90 tablet 3 Active tabletIndications: Seasonal MOUTH DAILY allergic rhinitis due to other allergic trigger fluticasone (FLONASE) 50 SHAKE AND USE 2 48 g 3 Active mcg/actuation nasal SPRAYS IN EACH sprayIndications: Seasonal NOSTRIL DAILY allergic rhinitis due to other allergic trigger naproxen (NAPROSYN) 250 mg oral TAKE 1 TABLET BY 180 tablet 3 06/05/2020 Active tabletIndications: Acute MOUTH TWICE A DAY right-sided low back pain with NEEDED right-sided sciatica omeprazole (PRILOSEC) 20 mg oral TAKE 1 CAPSULE BY 90 capsule 3 06/05/2020 Active delayed release MOUTH DAILY capsuleIndications: Gastroesophageal reflux disease hydrOXYzine HCl (ATARAX) 50 mg TK 1/2 T PO QID PRA 90 tablet 0 11/21/2020 Active oral tablet AND PANIC rOPINIRole (REQIUP) 3 mg oral Take 1 tablet (3 mg) 90 tablet 1 11/21/2020 Active TabIndications: RLS (restless by mouth once daily. legs syndrome) albuterol HFA Inhale 2 puffs every 18 g 1 12/19/2021 Active (PROVENTIL;VENTOLIN HFA) 90 4 (four) hours as mcg/actuation Inhl inhaler needed. Active Problems Problem Noted Date Episodic drug abuse 07/29/2018 Hyperlipidemia, unspecified hyperlipidemia type 2017 Metabolic syndrome 10/30/2015 History of vertebral fracture 02/07/2015 Fatigue 03/19/2011 Obesity 03/19/2011 Snores 03/19/2011 Multiple allergies 03/19/2011 Depression with anxiety Bipolar disorder RLS (restless legs syndrome) Overview: requip works well hs Insomnia Overview: trazadone tx works well Resolved Problems Problem Noted Date Resolved Date History of tobacco abuse 04/07/2017 09/17/2017 Tobacco abuse 08/08/2014 04/07/2017 Lumbar vertebral fracture 02/07/2015 Overview: L4 or L5 Encounters Date Type Specialty Care Team Description 01/15/2022 Nurse Triage Family Medicine None, Md from Last 3 Months Immunizations Name Administration Dates Next Due 2011- Fluzone, 3 Yrs & Older (0.5 03/01/2012 mL) 2013- Fluarix Quad SDS, 36 mos & 01/25/2014 older Influenza 01/23/2020, 03/08/2019, 01/27/2018, 02/09/2017, 03/05/2016, 01/25/2015, 01/25/2014, 02/27/2013, 03/01/2012, 02/12/2012, 03/06/2011 Pneumococcal 13-Jojo (Prevnar 13) 11/27/2015 Pneumococcal 23-Jojo (Pneumovax) 02/24/2017 Td >7 Yrs 1997 Tdap >7 yrs 10/25/2013 Family History Medical History Relation Comments Negative Hx Father unknown Colon Cancer Maternal Grandmother Diabetes Mother Cancer Sister 2 stomach Depression Sister 2 Drug Abuse Sister 2 Mental Illness Sister 2 Autism Son 3 Other Disease Son 4 hereditary microspir tosis Relation Status Comments Father Alive unknown history Maternal Grandmother Mother Alive Diabetes Sister 1 Alive stomach cancer,menta l illness, depression, drug abuse Sister 2 Son 1 Alive Autism/ ADHD Son 2 Alive Hereditary microspir tosis Son 3 Son 4 Social History Tobacco Use Types Packs/Day Years Used Date Smoking Tobacco: Every Day Cigarettes 0 19 L ast attempted to quit: 03/01/2017 Smokeless Tobacco: Current Tobacco Cessation: Ready to Quit: Yes Alcohol Use Standard Drinks/Week Comments Yes 1 [...] Assigned at Date Recorded Not on file Last Filed Vital Signs Vital Sign Reading [...] Mass Index 41.54 07/29/2018 2:53 PM CDT Plan of Treatment Health Maintenance Due Date Last Done Comments Colonoscopy 1975 Hepatitis C Screening 1975 COVID-19 Vaccine (#1) 1975 Depression Assessment (PHQ-9) 01/27/2019 01/27/2018, 2016, 08/27/2016, Additional history exists Lipid Screening 01/27/2019 01/27/2018, 08/27/2016, 06/23/2012, Additional history exists Mammogram Screening 01/28/2020 01/27/2018, 02/15/2015, 01/25/2015 Pap Smear 08/27/2021 08/27/2016, 06/08/2012 (Postponed) Influenza Vaccine (#1) 2022 01/23/2020, 03/08/2019, 01/27/2018, Additional history exists Adult Tetanus Booster 10/26/2023 10/25/2013, 1997 Pneumococcal <65 (3 - PPSV23 or 2038 02/24/2017, 11/08 PCV20) Medical Devices Implanted Type Area Manager Program Device Shelf Model / Identifier Expiration Date Ser ial / Lot Scrsynlck S/T Sdr 06/24 201.884 - [id number] Screw/Anc Right: Synthes 201.884 / Implanted: Qty: 1 on 02/16/2014 at [facility] hor Yelena t / Insurance Payer Benefit Plan / Subscriber ID Effective Dates Phone Addre ss Type Group MEDICAID MEDICAID [id number] 2009-Present [address] [address] [place] [address] Care Teams Metalizing Supervisor Relationship Specialty Start Date End Date [facility] PCP - Primary Care Clinic [facility] [address] [place] [address]
--- OUTSIDE RECORDS SUMMARY | 2022-01-24 09:45 | XMS_ITS | Encounter Summary ---
:1975 Author Organization [facility] Address [address] [place] [address] Care Team Providers Name Role Phone [facility], [facility] Unavailable Reason for Visit Reason Onset Date Comments Dizziness 01/15/2022 Encounter Details Date Type Department Care Team Description 01/15/2022 Nurse Triage [facility] Jazmin Odell [address] [place] [address] Social History Tobacco Use Types Packs/Day Years [...] on file documented as of this encounter Miscellaneous Notes Telephone Encounter - Bhavna Cedeno RN - 01/15/2022 12:53 PM CDT Disposition: FYI-Referred to Urgent Care- encounter closed Actions Requested: None PCP: No primary care provider on file. Summary of call details: Patient is calling because she is experiencing dizziness and lightheadedness. She states that she had an episode 2 weeks ago. Today she is having moderate to severe at times dizziness. She is lightheaded and feeling woozy. The dizziness is a spinning sensation and everything aggravates it. She is c/o intermittent headaches over her right eye, increased fatigue and urinary frequency. Advised Urgent care visit per protocol. See care advice. Patient agreed to disposition. Bhavna Cedeno RN Care Access Triage See protocol Reason for Disposition [1] MODERATE dizziness (e.g., interferes with normal activities) AND [2] has NOT been evaluated by physician for this (Exception: dizziness caused by heat exposure, sudden standing, or poor fluid intake) Answer Assessment - Initial Assessment Questions 1. DESCRIPTION: Describe your dizziness. spinning 2. LIGHTHEADED: Do you feel lightheaded? (e.g., somewhat faint, woozy, weak upon standing) Yes, woozy 3. VERTIGO: Do you feel like either you or the room is spinning or tilting? (i.e. vertigo) no 4. SEVERITY: How bad is it? Do you feel like you are going to faint? Can you stand and walk? - MILD: Feels slightly dizzy, but walking normally. - MODERATE: Feels unsteady when walking, but not falling; interferes with normal activities (e.g., school, work). - SEVERE: Unable to walk without falling, or requires assistance to walk without falling; feels like passing out now. Moderate to severe 5. ONSET: When did the dizziness begin? today 6. AGGRAVATING FACTORS: Does anything make it worse? (e.g., standing, change in head position) all 7. HEART RATE: Can you tell me your heart rate? How many beats in 15 seconds? (Note: not all patients can do this) na 8. CAUSE: What do you think is causing the dizziness? unsure 9. RECURRENT SYMPTOM: Have you had dizziness before? If Yes, ask: When was the last time? What happened that time? Yes about 2 weeks ago 10. OTHER SYMPTOMS: Do you have any other symptoms? (e.g., fever, chest pain, vomiting, diarrhea, bleeding) See note 11. : Is there any chance you are ? When was your last menstrual period? no Protocols used: Dizziness - [id number] documented in this encounter Plan of Treatment Not on filedocumented as of this encounter Visit Diagnoses Not on filedocumented in this encounter Care Teams Community Administrator Relationship Specialty Start Date End Date [facility] PCP - Primary Care Clinic [facility] [address] [place] [address] documented as of this encounter
--- OUTSIDE RECORDS SUMMARY | 2022-01-24 09:45 | XMS_ITS | Clinical Summary ---
:1975 Author Organization [facility] [place] [address] Care Team Providers Name Role Phone Pcp, No Primary Care Provider Unavailable Allergies Active Allergy Reactions Severity Noted Date Comments Cat Dander Hives 04/07/2017 Dog Dander Hives 04/07/2017 Tree And Shrub Pollen Hives 04/07/2017 Medications Medication Sig Dispensed Refills Start Date End Date Status rOPINIRole (REQUIP) 3 mg Take 3 mg by 0 Active tablet mouth once daily. ergocalciferol (VITAMIN Take 50,000 0 Active D2; DRISDOL) 50,000 unit Units by mouth capsule once weekly. Takes on Thursday ziprasidone (GEODON) 40 Take 40 mg by 0 Active mg capsule mouth 2 times daily with meals. ADDERALL XR 15 mg Take 1 capsule 0 07/29/2015 Active Extended-Release capsule by mouth once daily. diazepam (VALIUM) 10 mg Take 1 tablet 0 07/23/2015 Active tablet twice daily as needed traZODone (DESYREL) 100 Take 300 mg by 0 Active mg tablet mouth at bedtime. ZyrTEC 10 mg cap 0 06/05/2020 Ac tive ropinirole HCl (REQUIP Take 3 mg by 0 Active ORAL) mouth. acetaminophen (TYLENOL) Take 650 mg by 0 01/08/2018 Active 325 mg tablet mouth. albuterol HFA (PRO-AIR; Inhale 2 Puffs 0 Active VENTOLIN; PROVENTIL) 90 by mouth. mcg/actuation inhaler fluticasone (50 mcg per SHAKE AND USE 2 0 06/05/2020 Active actuation) nasal SPRAYS IN EACH solution (FLONASE) NOSTRIL DAILY OLANzapine (ZYPREXA) 5 TAKE 1 TABLET BY 0 07/17/2020 Active mg tablet MOUTH 1 TIME PER DAY UNTIL SLEEP REGULATED. TAKE AT ONSET OF INSOMNIA venlafaxine (EFFEXOR XR) Take 150 mg by 0 Active 150 mg Extended-Release mouth. capsule naproxen (NAPROSYN) 500 Take 1 Tablet 30 Tablet 1 08/13/2020 Active mg tabletIndications: (500 mg) by Lumbar degenerative disc mouth 2 times disease daily with meals. cyclobenzaprine Take 1 Tablet 20 Tablet 2 08/13/2020 Active (FLEXERIL) 10 mg (10 mg) by mouth tabletIndications: at bedtime if Lumbar degenerative disc needed for disease Muscle Spasm. ipratropium (Atrovent Inhale 2 Puffs 1 Inhaler 0 08/13/2020 Active HFA) 17 mcg/actuation by mouth 4 times inhalerIndications: Mild daily if needed. intermittent asthma, unspecified whether complicated Active Problems Problem Noted Date Bipolar disorder 08/21/2015 Overview: anxiety /depression Insomnia disorder 08/21/2015 Overview: on trazodone HTN (hypertension) 08/21/2015 Lumbar degenerative disc disease 08/17/2015 Encounters Date Type Specialty Care Team Description 01/15/2022 Orders Only Palmira Mason MD Outs chavo Order (01/08/22, Ede Glass PA-C) 11/06/2021 Orders Only Mac Willis MD Outside Order (Order Date: 11/06/2021, Noam ... from Last 3 Months Social History Tobacco Use Types Packs/Day Years Used Date Current Some Day Smoker Cigarettes 0.5 Smokeless Tobacco: Never Used Tobacco Cessation: Ready to Quit: Yes; C ounseling Given: Yes Alcohol Use Standard Drinks/Week Comments Not Currently 0 (1 standard drink = 0.6 oz pure alcoho l) Rare Alcohol Habits Answer Date Recorded How often do you have a drink containing alcohol? Not asked How many drinks containing alcohol do you have on a typical Not asked day when you are drinking? How often do you have six or more drinks on one occasion? No t asked Comment: Rare 08/21/2015 Sex Assigned at Date Recorded Not on file Obstetrics History Last Filed Vital Signs Vital Sign Reading Time Taken Comments Blood Pressure 120/80 08/13/2020 9:46 AM CDT Pulse 84 08/13/2020 9:46 AM CDT Temperature 36.8 ??C (98.2 ??F) 08/13/2020 9:46 AM CDT Respiratory Rate 20 08/13/2020 9:46 AM CDT Oxygen Saturation 93% 08/23/2015 7:44 AM CDT Inhaled Oxygen Concentration - - Weight 98 kg (216 lb) 08/13/2020 9:46 AM CDT Height 158 cm (5' 2.2) 08/13/2020 9:46 AM CDT Body Mass Index 39.25 08/13/2020 9:46 AM CDT Plan of Treatment Health Maintenance Due Date Last Done Comments COVID-19 vaccine series (#1) 1973 Pneumococcal series for age 19-64 (1 - PCV) 1979 Tdap 1984 Hepatitis C screening for age 18-79 1991 Tetanus booster 1993 Pap test for age 21-65 1994 Colonoscopy through age 75 2018 Lipids for age 45-75 2018 Mammogram for age 45-75 2018 BMI (ht and wt on same day) for age 18+ 08/13/2021 08/14/19 21 Depression screening for age 12+ 08/13/2021 08/13/2020 Influenza for age 9-49 01/09/2022 Medical Devices Implanted Type Area Director Financial Systems Device Shelf Model / Identifier Expiration Serial / Date Lot Plate Lmbr Byers-L Stand Alone Lock - [id number] N/A: Lumba r Yury Spine [id number] / Implanted: Qty: 1 on 08/21/2015 by Gavin Marks MD at [facility] Vertebrae / Results Not on filefrom Last 3 Months Insurance Payer Benefit Plan / Subscriber ID Effective Dates Phone Addre ss Type Group MEDICAID [place] MEDICAID [id number] 2009-Present [address] [address] Dept of Human Services [facility] [place] [address] Advance Directives Latest Code Status on File Code Status Date Activated Date Inactivated Comments Full Code 08/21/2015 6:50 AM 08/23/2015 2:54 PM Code Status Discussion: Not Discussed Full Code 08/17/2015 1:51 PM 08/21/2015 6:50 AM Code Status Discussion: Not Discussed Care Teams Process Engineering Technician Relationship Specialty Start Date End Date Pcp, No PCP - General 07/04/20 .
--- OUTSIDE RECORDS SUMMARY | 2022-01-24 09:45 | XMS_ITS | Encounter Summary ---
:1975 Author Organization [facility] Address [address] [place] [address] Care Team Providers Name Role Phone Unavailable Primary Care Provider Unavailable Encounter Details Date Type Department Care Team Description 07/29/2018 Travel Social History Tobacco Use Types Packs/Day [...]
--- OUTSIDE RECORDS SUMMARY | 2022-01-24 09:46 | XMS_ITS | Encounter Summary ---
:1975 Author Organization [facility] Address [address] [place] [address] Care Team Providers Name Role Phone Jacques Alcantara MD Primary Care Provider Unavailable [facility] Unavailable Unavailable Reason for Visit Reason Comments Care coordination Encounter Details Date Type Department Care Team Description 11/13/2016 [facility] [address] [place] [address] [place] [address] Social History Tobacco Use Types Packs/Day Years Used Date Smoking Tobacco: Every Day Cigarettes 0.5 19 Smokeless Tobacco: Never Comments: started chantix Alcohol Use Standard Drinks/Week Comments Yes 1 [...] on filedocumented in this encounter Care Teams Software Performance Engineer Relationship Specialty Start Date End Date Jacques Alcantara MD PCP - General Family Medicine 12/15/12 [facility], PCP - Primary Care Clinic 3 09/16/17 [facility] documented as of this encounter
--- OUTSIDE RECORDS SUMMARY | 2022-01-24 09:46 | XMS_ITS | Encounter Summary ---
:1975 Author Organization [facility] Address [address] [place] [address] Care Team Providers Name Role Phone Jacques Alcantara MD Primary Care Provider Unavailable [facility] Unavailable Unavailable Reason for Visit Reason Comments Toenail Ingrown, great toes and 2nd toes bilaterally; painful Consultation - Internal (Routine) - Auth-No PA/Ref Req Specialty Diagnoses / Procedures Referred By Contact Refer red To Contact Diagnoses IGTN (ingrowing toe nail) Jacques Alcantara MD [facility] [address] [id number] [place] [address] Phone: Referral ID Status Reason Start Expiration Visits Visits Date Date Requested Authorized [id number] Auth-No Specialty 04/16/2016 1 1 PA/Ref Req Services Required Encounter Details Date Type Department Care Team Description 04/22/2016 Office Visit [facility] Vivian Chapa E, DPM Pain in toes of both feet (Primary Dx); Clinic - [address] Joao montoya; [address] Macronychia; [address] [place], [place] Tinea unguium [place], [place] [phone] (Wo rk) Social History Tobacco Use Types [...] Sign Reading Time Taken Comments Blood Pressure 118/74 04/22/2016 11:37 AM DIRECTOR OF EMERGENCY NURSING Pulse 76 04/22/2016 11:37 AM DIRECTOR OF EMERGENCY NURSING Temperature 36.5 ??C (97.7 ??F) 04/22/2016 11:37 AM DIRECTOR OF EMERGENCY NURSING Respiratory Rate - - Oxygen Saturation - - Inhaled Oxygen Concentration - - Weight - - Height - - Body Mass Index - - documented in this encounter Progress Notes Robert Chapa DPM - 04/22/2016 11:45 AM CST PROGRESS NOTE SUBJECTIVE Maria Del Rosario is a 41-year-old woman that persist clinic today for evaluation of dystrophic toenails. She is here interested in having them excised unless there are other options. She has no other concerns. She notices that they are incurvated and inflamed. They are tender to touch. OBJECTIVE BP 118/74 (BP Cuff Site: Right arm, BP Cuff Position: Sitting, BP Cuff Size: Large adult) Pulse 76 Temp 97.7 ??F (36.5 ??C) (Oral) GENERAL APPEARANCE: She is awake, alert and in no acute distress. PSYCHOLOGICAL/JUDGEMENT: intact/normal RESPIRATORY: Appears comfortable and in no distress CARDIOVASCULAR: DP and PT pulses are 1/4 with prompt capillary refill time. There is no erythema edema, nor ecchymosis LYMPHATIC: No palpable lymphadenopathy, no unusual bleeding or bruising SKIN: Intact, warm, dry. The hallux nails are grossly dystrophic and are brittle, thick, discolored with subungual debris. The second nails are also dystrophic with incurvation medially and laterally. NEUROLOGIC: Alert and oriented, moves all extremities. Non-focal exam. MUSCULOSKELETAL: And is on exam. No deformity EXTREMITIES: No edema or cyanosis. ASSESSMENT onychomycosis with onychocryptosis PLAN examined her feet and discussed treatment plan. She wishes to have them excised I think this makes the most sense for her. I did discuss that we can trial a topical medication if she would like this though she declines. She is requesting have the procedure done specifically at [facility]. I did tell her that I would have availability to do this in minutes on,, 2 weeks from tomorrow though I can refer her to one of my partners that can do the procedure in the operating room and [facility]. She will follow up with Dr. Armendariz tomorrow to schedule the procedure. He feels it is indicated. Robert Chapa DPM, [facility] This document was created using voice recognition software and effort was taken in order to review for accuracy, though some inadvertent typographical errors may be present. CTOR OF EMERGENCY NURSING documented in this encounter Plan of Treatment Scheduled Referrals Name Type Priority Associated Diagnoses [facility] Follow Up Routine IGTN (ingrowing toe surjit l) Ordered: 04/16/2016 documented as of this encounter Visit Diagnoses Diagnosis Pain in toes of both feet - Primary Ingrowing nail Macronychia Other specified disease of nail Tinea unguium Dermatophytosis of nail documented in this encounter Care Teams Seasonal Clerk Relationship Specialty Start Date End Date Jacques Alcantara MD PCP - General Family Medicine 12/15/12 [facility], PCP - Primary Care Clinic 3 09/16/17 [facility] documented as of this encounter
--- OUTSIDE RECORDS SUMMARY | 2022-01-24 09:46 | XMS_ITS | Encounter Summary ---
:1975 Author Organization [facility] Address [address] [place] [address] Care Team Providers Name Role Phone Jacques Alcantara MD Primary Care Provider Unavailable [facility] Unavailable Unavailable Reason for Visit Reason Comments Finger injury states on the top of the pascual mb she is having a hard time feeling the top of her thumb Encounter Details Date Type Department Care Team Description 02/24/2017 Office Visit [facility] Jacques Alcantara, In jury of right thumb, initial encounter (Primary Dx); Clinic - [facility] RLS (restless legs syndrome) ; [address] [place] [address] Need for pneumococcal vaccine; [place]. Screening for breast cancer; [place], [place] [address] Weight gain, abnormal [phone] Social History Tobacco Use Types Packs/Day Years Used Date Smoking Tobacco: Every Day Cigarettes 0 19 Smokeless Tobacco: Never Comments: started chantix- 9 cigarettes daily Alcohol Use Standard Drinks/Week Comments Yes 1 [...] Sign Reading Time Taken Comments Blood Pressure 122/74 02/24/2017 9:19 AM CDT Pulse 84 02/24/2017 9:19 AM CDT Temperature 36.5 ??C (97.7 ??F) 02/24/2017 9:19 AM CDT Respiratory Rate 16 02/24/2017 9:19 AM CDT Oxygen Saturation - - Inhaled Oxygen Concentration - - Weight 99.9 kg (220 lb 4.8 oz) 02/24/2017 9:19 AM CDT Height 154.9 cm (5' 1) 02/24/2017 9:19 AM CDT Body Mass Index 41.63 02/24/2017 9:19 AM CDT documented in this encounter Progress Notes Jacques Alcantara MD - 02/24/2017 9:30 AM CDT SUBJECTIVE: 41 y.o. female for the following health concerns. Injury of right thumb, initial encounter - patient had injury 1 week ago when going out to eat with family and son had shot a door and her finger was unintentionally caught. States she continues to have pain and numbness. She was provided a N Neri wrap in the emergency department which she did not tolerate as it worsened her numbness and discomfort. They reported no fracture just a crush/sprain type injury. States that pain persists with use of her finger and numbness has not improved. RLS (restless legs syndrome) - requesting refill on her Requip that she feels works well for her restless leg syndrome. Denies any side effects to medication. Need for pneumococcal vaccine - patient thinks she may have gotten a pneumonia vaccine 20 years ago or so but does not know what strains were covered. Screening for breast cancer -patient states her last mammogram was within normal limits and no she'sdue for a recheck. Weight gain, abnormal - patient's weight is up 10 pounds in the past couple months. She reports thisis because the food the family by his for the teenage boys isn't working well for her. She is tryingto eat healthier and trying to get more chicken and touch stools however they're eating more junk food burgers and she's been partaking in this. Current Outpatient Prescriptions Medication Sig Dispense Refill ??? acetaminophen (TYLENOL) 500 mg oral tablet Take 1 tablet (500 mg) by mouth every 4 (four) hours as needed. 90 tablet 0 ??? albuterol HFA (PROAIR HFA) 90 mcg/actuation Inhl inhaler Inhale 2 puffs every 4 (four) hours as needed. 18 g 3 ??? cetirizine (ZYRTEC) 10 mg oral tablet Take 10 mg by mouth once daily. ??? Diaper,Brief, Adult,Disposable (DEPEND UNDERWEAR L-XL) 1 Each by [facility].(Non- Drug; Combo Route) route three times a day. 100 Each 3 ??? diazePAM (VALIUM) 10 mg oral tablet Take 1 tablet (10 mg) by mouth twice a day as needed. 30 tablet 1 ??? fluticasone (FLONASE) 50 mcg/actuation nasal spray Instill 2 sprays into EACH nare once daily. ??? gabapentin (NEURONTIN) 300 mg oral capsule Decrease one capsule daily until reaches 3 caps BID. 6 total caps per day. 180 capsule 3 ??? ibuprofen (MOTRIN) 800 mg Oral Tab Take 1 Tab by mouth every 8 (eight) hours as needed. 120 Tab 2 ??? methocarbamol (ROBAXIN) 500 mg oral Tab Take 2 tablets by mouth four times a day. 240 tablet 5 ??? omeprazole (PRILOSEC) 20 mg oral delayed [...] 0.65% (SALINE NASAL MIST) 0.65 % Nasal Emmett SprA Instill 1- 2 Sprays into EACH nare every 1 (one) hour as needed. 1 Bottle 11 ??? topiramate (TOPAMAX) 100 mg oral tablet Take 1 tablet (100 mg) by mouth once daily. 90 tablet 3 ??? traZODone (DESYREL) 300 mg oral tablet Take 1 tablet (300 mg) by mouth at bedtime as needed. 90 tablet 3 ??? triamterene-hydrochlorothiazide (DYAZIDE) 37.5-25 mg oral capsule Take 1 capsule by mouth every morning. ??? varenicline (CHANTIX) 1 mg oral tablet Take 1 mg by mouth 2 times daily with meals. ??? ziprasidone hcl (GEODON) 60 mg oral capsule Take 1 capsule (60 mg) by mouth at bedtime. (Patienttaking differently: Take 60 mg by mouth Twice a Day. ) 90 capsule 1 No current facility-administered medications for this visit. Allergies: Review of patient's allergies indicates no known allergies. No LMP recorded (lmp unknown). Patient has had a hysterectomy. ROS: Feeling well Respiratory symptoms none No dyspnea or chest pain on exertion. No abdominal pain, change in bowel habits. No urinary tract symptoms. RLS as above. Right thumb as above. OBJECTIVE: The patient appears well, in NAD. BP 122/74 (BP Cuff Site: Left arm, BP Cuff Position: Sitting, BP Cuff Size: Large adult) Pulse 84 Temp 97.7 ??F (36.5 ??C) (Oral) Resp 16 Ht 1.549 m (5' 1) Wt 99.9 kg (220 lb 4.8 oz) LMP (LMP Unknown) ? No BMI 41.63 kg/m?? ISAC. Lungs are clear, good air entry, no wheezes, rhonchi or rales. S1 and S2 normal, no murmurs, regular rate and rhythm. Right thumb with mild obvious swelling - full range of motion and strength. Perceive numbness of distal thumb. No overlying skin changes appreciated. ASSESSMENT/PLAN: Injury of right thumb, initial encounter - Plan: FINGER SPLINT - counseled patient on the nature andrecovery of an injury possibly the pain should improve over the next 3-6 weeks however the numbness may take much longer than that. She expressed her understanding. Provided a thumb splint for the patient and instructed on use. Continue to monitor for symptom improvement. RLS (restless legs syndrome) - Plan: rOPINIRole (REQUIP) 3 mg oral Tab - refilled for patient today without changes. Continue to monitor for symptom control. Need for pneumococcal vaccine - Plan: PNEUMOCOCCAL 23-RACHEL VACC (PNEUMOVAX) - immunization provided today in clinic. Screening for breast cancer - Plan: MAMMO DIGITAL SCREENING BI - we'll follow up on imaging results as available. Weight gain, abnormal - counseled patient on her 10 pound weight gain since December and reviewed portion control watching intake and remaining active. She expressed her understanding and is can work with her on a helping her own shopping list with healthier options including vegetables and leaner proteins. Discussed with patient we should do a 3 month check in sooner as needed. Pt to return if sx worsen or fail to improve, sooner as needed. Options for treatment and follow-up care were reviewed with the patient and/or guardian. Maria Del Rosario A [place] and/or guardian engaged in the decision making process and verbalized understanding of the optionsdiscussed and agreed with the final plan. documented in this encounter Plan of Treatment Not on filedocumented as of this encounter Visit Diagnoses Diagnosis Injury of right thumb, initial encounter - Primary RLS (restless legs syndrome) Restless legs syndrome (RLS) Need for pneumococcal vaccine Need for prophylactic vaccination agains t streptococcus pneumoniae (pneumococcus) Screening for breast cancer Breast screening, unspecified Weight gain, abnormal Abnormal weight gain documented in this encounter Care Teams Communication Arts Lecturer Relationship Specialty Start Date End Date Jacques Alcantara MD PCP - General Family Medicine 12/15/12 [facility], PCP - Primary Care Clinic 3 09/16/17 [facility] documented as of this encounter
--- OUTSIDE RECORDS SUMMARY | 2022-01-24 09:46 | XMS_ITS | Encounter Summary ---
:1975 Author Organization [facility] Address [address] [place] [address] Care Team Providers Name Role Phone Jacques Alcantara MD Primary Care Provider Unavailable [facility] Unavailable Unavailable Reason for Visit Reason Comments Post op check Toes still sore and bruised. Encounter Details Date Type Department Care Team Description 06/18/2016 Office Visit [facility] Luis Armendariz Ma cronychia (Primary Dx); Clinic - [place] DPM Tinea unguium; [address] Joao montoya [place], [place] [address] [phone] [place], [place] [address] (Wo rk) Social History Tobacco Use Types [...] Sign Reading Time Taken Comments Blood Pressure 110/70 06/18/2016 9:42 AM REAL ESTATE COORDINATOR Pulse 68 06/18/2016 9:42 AM REAL ESTATE COORDINATOR Temperature 36.6 ??C (97.9 ??F) 06/18/2016 9:42 AM REAL ESTATE COORDINATOR Respiratory Rate 16 06/18/2016 9:42 AM REAL ESTATE COORDINATOR Oxygen Saturation - - Inhaled Oxygen Concentration - - Weight - - Height - - Body Mass Index - - documented in this encounter Progress Notes Luis Armendariz DPM - 06/18/2016 9:50 AM CST Podiatric Medicine and Surgery Clinic Note Chief Complaint: Follow up s/p permanent nail avulsions to hallux and second toenails, bilateral SUBJECTIVE: Maria Del Rosario Servin is a 40 y.o. female presents for a 2 week visit s/p permanent nail avulsions to halluxand second toenails, bilateral. Doing well. Has been doing daily soaks and dressing with antibiotic ointment and bandage. No new complaints. No pain. REVIEW OF SYSTEMS A comprehensive review of systems was negative except for items noted in the HPI/Subjective. Constitutional: Negative for fever, chills and sweating Integument: Negative for rash, skin lesion(s), pruritis, dryness and skin color change Lymphatic: Negative for easy bruising, bleeding, lymphadenopathy and petechiae Psychiatric: Negative for nervousness, anxiety and depression OBJECTIVE: Physical Examination: General: Patient is alert and orientated to person, place, and time. Lower Extremity Examination: Vascular: Dorsalis pedis and posterior pulses are palpable. Skin warm to the touch and supple. Capillary fill time < 3 seconds to all toes. Hair growth is present to the level of the toes. All of the above are bilateral and symmetric. Neurologic: Protective sensation intact. Muscle strength is within normal limits. All of the above are bilateral and symmetric. Integument: Nail bed was examined and demonstrates mixed amount of epithelialization and granulationtissue. Small amount of fibrotic tissue to the left 2nd nail bed. A minimal amount of serous drainage was noted with maceration present around hallux and 2nd toe nailbeds. There is no surrounding erythema, edema, or any signs or symptoms of infection. Musculoskeletal: Mild pain with palpation to affected toes. Normal ROM of the ankle joint and subtalar joint. 1st MTPJ ROM and lesser digits normal ROM. Normal medial arch height. Assessment: Macronychia Tinea unguium Ingrowing nail Plan: - Examined and evaluated patient, she is doing well. - The patient may continue to soak the area twice daily. A shower can count as a soak. - Applied betadine to each affected toe this date, wiped away some fibrotic sloughing with gauze andapplied band aid to hallux and 2nd toes, bilateral. - Informed patient she can discontinue triple antibiotic ointment and this time and can begin using a dry Band-Aid over the area for the next 2-3 weeks. - They were informed of the next couple of weeks or sooner should begin to dry out and he can discontinue local wound care at that time. -They were informed that they may have continued drainage for at least a couple more weeks. - If the patient is any increase in erythema, pain, or drainage they're to call clinic immediately. Otherwise we will see them back as needed. Return if symptoms worsen or fail to improve. The patient was instructed to contact the clinic with any questions or concerns. Luis Armendariz DPM Podiatric Medicine and Surgery 06/18/2016 9:40 AM This document was created using voice recognition software and effort was taken in order to review for accuracy, though some inadvertent typographical errors may be present. ESTATE COORDINATOR documented in this encounter Plan of Treatment Not on filedocumented as of this encounter Visit Diagnoses Diagnosis Macronychia - Primary Other specified disease of nail Tinea unguium Dermatophytosis of nail Ingrowing nail documented in this encounter Care Teams Molecular Genetic Pathologist Relationship Specialty Start Date End Date Jacques Alcantara MD PCP - General Family Medicine 12/15/12 [facility], PCP - Primary Care Clinic 3 09/16/17 [facility] documented as of this encounter
--- OUTSIDE RECORDS SUMMARY | 2022-01-24 09:46 | XMS_ITS | Encounter Summary ---
:1975 Author Organization [facility] Address [address] [place] [address] Care Team Providers Name Role Phone Jacques Alcantara MD Primary Care Provider Unavailable [facility] Unavailable Unavailable Reason for Visit Reason Comments Follow up usp discharge. Leg swelling Encounter Details Date Type Department Care Team Description 12/27/2015 Office Visit [facility] Jacques Alcantara S/P l umbar and lumbosacral fusion by anterior technique (Primary Dx); Clinic - Lashell Veliz MD Gastroesophageal reflux dise ase, esophagitis presence not specified; [address] Bilateral leg edema [place], [place] 53 Social History Tobacco Use Types Packs/Day Years [...] Sign Reading Time Taken Comments Blood Pressure 126/70 12/27/2015 10:37 AM CDT Pulse 82 12/27/2015 10:37 AM CDT Temperature 37 ??C (98.6 ??F) 12/27/2015 10:37 AM CDT Respiratory Rate 16 12/27/2015 10:37 AM CDT Oxygen Saturation - - Inhaled Oxygen Concentration - - Weight 97.5 kg (215 lb) 12/27/2015 10:37 AM CDT Height 154.9 cm (5' 1) 12/27/2015 10:37 AM CDT Body Mass Index 40.62 12/27/2015 10:37 AM CDT documented in this encounter Progress Notes Jacques Alcantara MD - 12/27/2015 11:06 AM CDT SUBJECTIVE: 40 y.o. female for the following health concerns. S/P lumbar and lumbosacral fusion by anterior technique - patient is discharged from [facility]p states she is doing well at home. Home health came out to do some physical therapy and they declined towork in her home which they consider substandard hygiene. I received a phone call and yesterday I place the referral to have outpatient physical therapy performed. In discussing with the patient today she does not feel that the home is either overly cluttered or unreasonably dirty. States that her family does regular cleaning and keeps things picked up for the most part. Gastroesophageal reflux disease, esophagitis presence not specified -would like to get a refill on her antacid which she considers effective but continues to have regular symptoms if she does not take it. Bilateral leg edema - states that her leg swelling continues to worsen. Mainly her right leg swells throughout the day and by the end of the day can get quite large. States that she will get a mild tenderness over her medial ankle region when the swelling is most severe otherwise denies any pain or calf tenderness. Denies any shortness of breath or chest pain. States that she does have some mild tenderness with walking but this has been since the surgery occurred. She was in the [facility] doing rate regular physical therapy. Current Outpatient Prescriptions Medication Sig Dispense Refill ??? albuterol HFA 90mcg/puff (PROAIR HFA) 90 mcg/actuation Inhl 2 Puffs by Inhalation route every 4 (four) hours as needed. 1 Inhaler 11 ??? dextroamphetamine-amphetamine (ADDERALL XR) 10 mg Oral 24hr SR caps Take by mouth Twice a Day. ??? DIAZEPAM ORAL Take by mouth. ??? gabapentin (NEURONTIN) 300 mg oral capsule 3 caps TID. (Patient taking differently: 300 mg threetimes a day. 3 caps TID.) 270 Cap 3 ??? ibuprofen (MOTRIN) 800 mg Oral Tab Take 1 Tab by mouth every 8 (eight) hours as needed. 120 Tab 2 ??? methocarbamol (ROBAXIN) 500 mg oral Tab Take 2 Tabs by mouth four times a day. 240 Tab 3 ??? omeprazole (PRILOSEC) 20 mg Oral CpDR Take 1 capsule by mouth Once Daily. 90 capsule 3 ??? oxyCODONE-acetaminophen (PERCOCET) 10-325 mg oral Tab Take 1-2 Tabs by mouth every 6 (six) hoursas needed (pain). ??? rOPINIRole (REQUIP) 3 mg Oral Tab Take 1 Tab by mouth Once Daily. 90 Tab 3 ??? sodium chloride 0.65% (SALINE NASAL MIST) 0.65 % Nasal [place] SprA Instill 1- 2 Sprays into EACH nare every 1 (one) hour as needed. 1 Bottle 11 ??? topiramate (TOPAMAX) 25 mg Oral Tab Take 75 mg by mouth at bedtime. ??? traZODone (DESYREL) 100 mg Oral Tab Take 300 mg by mouth at bedtime. ??? triamterene-hydrochlorothiazide 37.5 MG-25 MG (DYAZIDE) 37.5-25 mg oral Cap 6 ??? VITAMIN D2 50,000 unit oral Cap 4 ??? ziprasidone hcl (GEODON) 40 mg oral Cap 2 No current facility-administered medications for this visit. Allergies: Review of patient's allergies indicates no known allergies. No LMP recorded. Patient has had a hysterectomy. ROS: Feeling improved overall Respiratory symptoms none No dyspnea or chest pain on exertion. No abdominal pain, change in bowel habits. No new urinary tract symptoms. Leg swelling as below OBJECTIVE: The patient appears sedated BP 126/70 (BP Cuff Site: Right arm, BP Cuff Position: Sitting, BP Cuff Size: Regular adult) Pulse 82Temp 98.6 ??F (37 ??C) (Oral) Resp 16 Ht 1.549 m (5' 1) Wt 97.5 kg (215 lb) BMI 40.62 kg/m2 ISAC. Lungs are clear, good air entry, no wheezes, rhonchi or rales. S1 and S2 normal, no murmurs, regular rate and rhythm. Bilateral lower extremities with trace edema on right leg around ankle there is probably 1+ pitting edema. No skin changes or breakdown. Nontender non-warm today. No calf tenderness. ASSESSMENT/PLAN: S/P lumbar and lumbosacral fusion by anterior technique - offered referral for INFRASTRUCTURE TECH to assist with home care nurse and cleaning patient declines today. States she will continue to rely on her family. Discussed with patient that they should perhaps have a big cleaning day of their house where everythinggets picked up and put away and all the surfaces get scrubbed and vacuumed. She expressed her understanding. Oral that was placed yesterday was printed and provided for patient so she can call and makethe appointment for physical therapy for her back. Gastroesophageal reflux disease, esophagitis presence not specified - Plan: omeprazole (PRILOSEC) 20mg Oral CpDR - refilled for patient today. Bilateral leg edema - discussed compression stockings due to dependent edema. Reviewed elevation is helpful. Discussed probably don't want to start another pill at this point and she is in agreement with this. Provided Neri wrap in clinic in nursing instructed her on how to use this as a compression wrap while she is not as mobile. Reviewed that as she goes through physical therapy and becomes more mobile the edema should improve. Also counseled on salt in her diet which is very high according to what she ate yesterday and reviewed that she should continue to try to eat a low-sodium diet. She expressed her understanding. Reviewed that it does not appear to be associated with a blood clot and that if she were to have pain that persists or spreading redness or warmth of any region she should let us know and we would get an ultrasound. She expressed her understanding. Pt to return [...] as of this encounter Visit Diagnoses Diagnosis S/P lumbar and lumbosacral fusion by ant erior technique - Primary Arthrodesis status Gastroesophageal reflux disease, esophag itis presence not specified Bilateral leg edema Edema documented in this encounter Care Teams Zigzag Machine Operator Relationship Specialty Start Date End Date Jacques Alcantara MD PCP - General Family Medicine 12/15/12 [facility], PCP - Primary Care Clinic 3 09/16/17 [facility] Family Phy documented as of this encounter
--- OUTSIDE RECORDS SUMMARY | 2022-01-24 09:46 | XMS_ITS | Encounter Summary ---
:1975 Author Organization [facility] Address [address] [place] [address] Care Team Providers Name Role Phone Jacques Alcantara MD Primary Care Provider Unavailable [facility] Family Phy Unavailable Unavailable Reason for Visit Reason Comments UTI symptoms Rx refill adderall and lorazepam Encounter Details Date Type Department Care Team Description 01/08/2017 Office Visit [facility] Jacques Alcantara Ac alutiiq cystitis without hematuria (Primary Dx); Clinic - [facility] Dysuria; [address] [place] [address] Bipolar a ffective disorder in remission (HCC); [place] abuse [place], [place] [address] Social History Tobacco Use Types Packs/Day Years [...] Sign Reading Time Taken Comments Blood Pressure 126/78 01/08/2017 11:30 AM CDT Pulse 82 01/08/2017 11:30 AM CDT Temperature 36.3 ??C (97.3 ??F) 01/08/2017 11:30 AM CDT Respiratory Rate 16 01/08/2017 11:30 AM CDT Oxygen Saturation - - Inhaled Oxygen Concentration - - Weight 94.6 kg (208 lb 8 oz) 01/08/2017 11:30 AM CDT Height 154.9 cm (5' 1) 01/08/2017 11:30 AM CDT Body Mass Index 39.4 01/08/2017 11:30 AM CDT documented in this encounter Progress Notes Jacques Alcantara MD - 01/08/2017 11:48 AM CDT Maria Del Rosario Servin is a 41 y.o. female who presents today for urinary symptoms. Patient has noted symptoms including dysuria, frequency, urgency for the past 2 week(s). Other symptoms she has also noted include abnormal period. Denies any fevers chills or systemic symptoms. She states she had her period twice in the past month. Denies any menopausal symptoms. History includes no recent UTI's. Patient denies any headache, stomachache, vaginal discharge. BP 126/78 (BP Cuff Site: Left arm, BP Cuff Position: Sitting, BP Cuff Size: Regular adult) Pulse 82 Temp 97.3 ??F (36.3 ??C) (Oral) Resp 16 Ht 1.549 m (5' 1) Wt 94.6 kg (208 lb 8 oz) LMP (LMP Unknown) ? No BMI 39.40 kg/m?? General: Alert, no acute distress Abdomen: Soft, without pain with palpation, No CVA tenderness Results for orders placed or performed in visit on 01/08/17 (from the past 24 hour(s)) URINALYSIS W/ MICRO/CULTURE REFLEX OP Result Value Ref Range UA PH OP 5.5 5.0, 5.5, 6.0, 6.5, 7.0, 7.5, 8.0 UA SPECIFIC GRAVITY OP >=1.030 (A) 1.015, 1.020, 1.025 UA PROTEIN OP Trace (A) Negative mg/dL UA GLUCOSE OP Negative Negative mg/dL UA KETONES OP Negative Negative mg/dL UA BILIRUBIN OP Negative Negative UA BLOOD OP Negative Negative, Trace UA UROBILINOGEN OP 0.2 0.2, 1.0 EU/dL UA LEUKOCYTE ESTERASE OP Small (A) Negative, Trace UA NITRITE OP Negative Negative URINALYSIS MICROSCOPY OP (LAB USE ONLY) Result Value Ref Range RBC UA OP None Seen None Seen, Occasional /hpf WBC UA OP 30-49 (A) None Seen, Occasional, 1-4 /hpf BACTERIA UA OP Present (A) Absent Maria Del Rosario was seen today for uti symptoms and rx refill. Diagnoses and all orders for this visit: Dysuria/Acute cystitis without hematuria - nitrofurantoin mono-macro (MACROBID) 100 mg oral capsule; Take 1 capsule (100 mg) by mouth twice aday with breakfast and dinner for 5 days. - Reviewed with patient that given her symptoms and lab findings today we will start treatment for UTI. It is possible this could be associated with the BV type infection however we will await culture results if symptoms fail to resolve or worsen we may consider evaluation for BV although her symptoms at this time are urinary frequency and dysuria. - URINALYSIS W/ MICRO/CULTURE REFLEX OP - URINALYSIS MICROSCOPY OP (LAB USE ONLY) - CULT-URINE Bipolar affective disorder in remission (HCC) - patient's requesting refills on both Adderall and lorazepam today. I discussed that she's been referred to psychiatry and they will manage all of these medications going forward we will provide no more chills through our office. She expressed her understanding and will follow up with her psychiatrist through the associated clinical psychiatry. Tobacco abuse/Other orders - Cancel: varenicline (CHANTIX) 1 mg oral tablet; Take 1 mg by mouth Twice a Day. Patient is requesting a refill on Chantix she's been on it 60 days at this point and continues to smoke. She has not picked a quit day and/or worked with any counselors on this. Discussed with her that we will not be continuing Chantix I did provide her the referral for the quit plan for nicotine replacement and counseling. Reviewed that taking Chantix ongoing is not a recommended therapy and if he were to use it in the future she would need to pick a quit day and follow closely with me in clinic. Discussed side effects of medication, pushing fluids, OTC as needed for comfort. Discussed warning signs, when to return. Return to clinic as needed if symptoms worsen or fail to improve. Jacques Alcantara MD Jacques Alcantara MD - 01/08/2017 11:30 AM CDT Results discussed with patient in the office. We'll follow up with culture results. documented in this encounter Plan of Treatment Not on filedocumented as of this encounter Procedures Procedure Name Priority Date/Time Associated Comments Diagnosis URINALYSIS Routine 01/08/2017 11:28 AM Dysuria Results for this MICROSCOPY OP (LAB CDT procedure are in USE ONLY) the results section. URINALYSIS W/ Routine 01/08/2017 11:28 AM Dysuria Results for this MICRO/CULTURE REFLEX CDT procedu re are in OP the results section. CULT-URINE Routine 01/08/2017 11:28 AM Dysuria Results for this CDT procedure are i n the results section. documented in this encounter Results CULT-URINE (01/08/2017 11:28 AM CDT) [facility] Xanodyne Method Time Signature Urine Culture Mixed emerita 01/10/2017 [facility] with 3 or 10:12 AM CDT HEALTH more LABORATORY organisms present. None predominant. Comment: Probable collection contaminate s or catheter colonization. Specimen Anatomical Collection Method Collection Time Receive d Time (Source) Location / / Volume Laterality Urine 01/08/2017 11:28 01/08/2017 AM CDT 11:28 AM CDT Jacques Alcantara MD MICROBIOLOGY ORDERABLE Performing Organization Address City/[facility] Phon e Number [facility] [address] [place] [address] [phone] LABORATORY (ABNORMAL) URINALYSIS MICROSCOPY OP (LAB USE ONLY) (01/08/2017 11:28 AM CDT) [facility] Method Time Signature RBC UA OP None Seen None Seen, 01/08/2017 [place] Occasional 11:36 AM [facility] /[facility] WBC UA OP 30-49 (A) None Seen, 01/08/2017 [place] Occasional, 11:36 AM [facility] 1-4 /[facility] BACTERIA UA Present (A) Absent 01/08/2017 [place] OP 11:[address] [facility] Specimen Anatomical Collection Method Collection Time Receive d Time (Source) Location / / Volume Laterality Urine 01/08/2017 11:28 01/08/2017 AM CDT 11:28 AM CDT Jacques Alcantara MD URINE ORDERABLE Performing Organization Address City/State/ZIP Code Phon e Number [facility] [address] [facility] [address] - [facility] (ABNORMAL) URINALYSIS W/ MICRO/CULTURE REFLEX OP (01/08/2017 11:28 AM CDT) [facility] Method Time Signature UA PH OP 5.5 5.0, 5.5, 01/08/2017 [place] 6.0, 6.5, 11:30 AM [facility] 7.0, 7.5, [facility] 8.0 [facility] UA SPECIFIC >=1.030 (A) 1.015, 01/08/2017 [place] GRAVITY OP 1.020, 11:30 AM [facility] 1.025 [facility] UA PROTEIN OP Trace (A) Negative 01/08/2017 [place] mg/dL 11:[address] [facility] UA GLUCOSE OP Negative Negative 01/08/2017 [place] mg/dL 11:[address] [facility] UA KETONES OP Negative Negative 01/08/2017 [place] mg/dL 11:[address] [facility] UA BILIRUBIN OP Negative Negative 01/08/2017 [place] 11:[address] [facility] UA BLOOD OP Negative Negative, 01/08/2017 [place] Trace 11:[address] [facility] UA UROBILINOGEN 0.2 0.2, 1.0 01/08/2017 [place] OP EU/dL 11:[address] [facility] UA LEUKOCYTE Small (A) Negative, 01/08/2017 [place] ESTERASE OP Trace 11:[address] [facility] UA NITRITE OP Negative Negative 01/08/2017 [place] 11:[address] [facility] Specimen Anatomical Collection Method Collection Time Receive d Time (Source) Location / / Volume Laterality Urine 01/08/2017 11:28 01/08/2017 AM CDT 11:28 AM CDT Authorizing Provider Result Sharon Alcantara MD MICROBIOLOGY ORDERABLE Performing Organization Address City/State/ZIP Code Phon e Number [facility] [address] 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
--- OUTSIDE RECORDS SUMMARY | 2022-01-24 09:46 | XMS_ITS | Encounter Summary ---
:1975 Author Organization [facility] Address [address] [place] [address] Care Team Providers Name Role Phone Jacques Alcantara MD Primary Care Provider Unavailable [facility] [place] Unavailable Encounter Details Date Type Department Care Team Description 02/12/2017 Hospital Encounter Xray [address] [place] [address] Social History Tobacco Use Types Packs/Day Years [...] on file documented as of this encounter Medications at Time of Discharge [...] bedtime. Bipolar affective disorder in remission (HCC) acetaminophen (TYLENOL) Take 1 tablet (500 90 tablet 0 06/201609/17/2017 500 mg oral tablet mg) by mouth every 4 (four) hours as needed. albuterol HFA (PROAIR Inhale 2 puffs 18 g 3 08/27/2016 09/17/2017 HFA) 90 mcg/actuation every 4 (four) Inhl inhalerIndications: hours as needed. Bronchospasm Diaper,Brief, 1 Each by 100 Each 3 01/04/2016 06/04/2020 Adult,Disposable (DEPEND Misc.(Non-Drug; UNDERWEAR L-XL) Combo Route) route Indications: Urinary three times a day. incontinence, unspecified type gabapentin (NEURONTIN) Decrease one 180 capsule 3 08/27/2016 09/17/2017 300 mg oral capsule daily until capsuleIndications: reaches 3 caps BID. Bipolar affective 6 total caps per disorder in remission day. (HCC) ibuprofen (MOTRIN) 800 Take 1 Tab by mouth 120 Tab 2 1211/201409/17/2017 mg Oral Tab every 8 (eight) hours as needed. methocarbamol (ROBAXIN) Take 2 tablets by 240 tablet 5 01/0109/17/2017 500 mg oral Tab mouth four times a day. oxyCODONE-acetaminophen Take 1-2 Tabs by 0 09/21/2017 (PERCOCET) 10-325 mg mouth every 6 (six) oral Tab hours as needed (pain). sodium chloride 0.65% Instill 1-2 Sprays 1 Bottle 11 201412/02/2017 (SALINE NASAL MIST) 0.65 into EACH nare % Nasal [place] every 1 (one) hour SprAIndications: Sinus as needed. headache, Dizziness topiramate (TOPAMAX) 100 Take 1 tablet (100 90 tablet 3 01/27/2018 mg oral mg) by mouth once tabletIndications: daily. Migraine without status migrainosus, not intractable, unspecified migraine type triamterene-hydrochlorot Take 1 capsule by 0 09/17/2017 hiazide (DYAZIDE) mouth every 37.5-25 mg oral capsule morning. varenicline (CHANTIX) 1 Take 1 mg by mouth 0 12/02/2017 mg oral tablet 2 times daily with meals. documented as of this encounter Plan of Treatment Not on filedocumented as of this encounter Procedures Procedure Name Priority Date/Time Associated Diagnosis Comme nts XR FINGERS RT STAT 02/12/2017 8:43 AM Results for this CDT procedure are i n the results section . documented in this encounter Results XRAY FINGERS RIGHT (02/12/2017 8:43 AM CDT) Anatomical Region Laterality Modality Extremity Computed Radiography Specimen (Source) Anatomical Collection Method Collection Time Re ceived Time Location / / Volume Laterality 02/12/2017 8:49 AM CDT Impressions 02/12/2017 8:50 AM CDT IMPRESSION: No evidence of fracture or subluxation. Soft tissues are unremarkable. No abnormalities demonstrated. Narrative 02/12/2017 8:50 AM CDT EXAM: X-ray right fingers 02/12/2017 8:43 AM. COMPARISON: ??None. CLINICAL DATA: Trauma TECHNIQUE: Frontal, oblique, and lateral views of the right thumb was obtained. Procedure Note Loki Newman MD - 02/12/2017Formatt ing of this note might be different from the original. EXAM: X-ray right fingers 02/12/2017 8:43 AM. COMPARISON: None. CLINICAL DATA: Trauma TECHNIQUE: Frontal, oblique, and lateral views of the right thumb was obtained. IMPRESSION IMPRESSION: No evidence of fracture or subluxation. Soft tissues are unremarkable. No abnormalities demonstrated. Isaias Chowdhury MD XRAY ORDERABLE documented in this encounter Visit Diagnoses Not on filedocumented in this encounter Care Teams Carpentry Teacher Relationship Specialty Start Date End Date Jacques Alcantara MD PCP - General Family Medicine 12/15/12 [facility], [place], PCP - Primary Care Clinic 3 09[facility]16[facility]17 [facility] documented as of this encounter
--- OUTSIDE RECORDS SUMMARY | 2022-01-24 09:46 | XMS_ITS | Encounter Summary ---
:1975 Author Organization [facility] Address [address] [place] [id number] Care Team Providers Name Role Phone Jacques Alcantara MD Primary Care Provider Unavailable [facility] Unavailable Unavailable Reason for Referral (Routine) - Closed Specialty Diagnoses / Procedures Referred By Contact Refer red To Contact Procedures Luis Armendariz DPM Diet: Regular [address] [place] [address] 9 Referral ID Status Reason Start Date Expiration Date Visits Requ ested Visits Authorized [id number] Closed 06/10/2016 12/07/2016 1 1 DING MACHINE TENDER (Routine) - Closed Specialty Diagnoses / Procedures Referred By Contact Refer red To Contact Procedures Luis Armendariz DPM Dressing Change [address] [place] [address] Dr Marie [facility] [place] [address] 9 Referral ID Status Reason Start Date Expiration Date Visits Requ ested Visits Authorized [id number] Closed 06/10/2016 12/07/2016 1 1 DING MACHINE TENDER (Routine) - Closed Specialty Diagnoses / Procedures Referred By Contact Refer red To Contact Procedures Luis Armendariz DPM Discharge Instructions [address] [place] [address] Dr [place] [address] 9 Referral ID Status Reason Start Date Expiration Date Visits Requ ested Visits Authorized [id number] Closed 06/10/2016 12/07/2016 1 1 DING MACHINE TENDER (Routine) - Closed Specialty Diagnoses / Procedures Referred By Contact Refer red To Contact Procedures Luis Armendariz DPM Activity as tolerated [address] [place] [address] Dr Katie [address] [place], [place] [address] Referral ID Status Reason Start Date Expiration Date Visits Requ ested Visits Authorized [id number] Closed 06/10/2016 12/07/2016 1 1 DING MACHINE TENDER (Routine) - Closed Specialty Diagnoses / Procedures Referred By Contact Refer red To Contact Luis Armendariz DPM Canter, Keith A, DPM [address] [place] [address] Dr [address] [place] [address] Dr Marie [facility] [place], [place] [address] [place] [address] Fax: Referral ID Status Reason Start Date Expiration Date Visits Requ ested Visits Authorized [id number] Closed 06/10/2016 12/07/2016 1 1 Question Answer Follow Up Instructions Please follow up with Dr. Sylwia antunez on ThursdayJun.18 at 9:50AM at the [facility] location. Please call [phone] with any q uestions or concerns prior to that appointment. Specify time frame for follow up? 1 Week DING MACHINE TENDER (Routine) - Closed Specialty Diagnoses / Procedures Referred By Contact Refer red To Contact Procedures Luis Armendariz DPM Discharge [address] [place] [address] Dr Marie [facility] [place] [address] Referral ID Status Reason Start Date Expiration Date Visits Requ ested Visits Authorized [id number] Closed 06/10/2016 12/07/2016 1 1 DING MACHINE TENDER Reason for Visit Inpatient Admission Specialty Diagnoses / Procedures Referred By Contact Refer red To Contact Procedures [id number] Referral ID Status Reason Start Date Expiration Date Visits Requ ested Visits Authorized [id number] 1 1 Encounter Details Date Type Department Care Team Description 06/10/2016 Hospital Encounter [facility] KalaLuis DPM [facility] Patient Care [address] [facility] [address] [place] [address] [place], [place], [place] [phone] (Wo rk) Social History Tobacco Use Types [...] Sign Reading Time Taken Comments Blood Pressure 119/74 06/10/2016 9:22 AM ABRADING MACHINE TENDER Pulse 61 06/10/2016 9:22 AM ABRADING MACHINE TENDER Temperature 36.4 ??C (97.6 ??F) 06/10/2016 8:27 AM ABRADING MACHINE TENDER Respiratory Rate 16 06/10/2016 8:27 AM ABRADING MACHINE TENDER Oxygen Saturation 97% 06/10/2016 8:50 AM ABRADING MACHINE TENDER Inhaled Oxygen Concentration - - Weight 99.3 kg (219 lb) 06/10/2016 6:10 AM ABRADING MACHINE TENDER Height 154.9 cm (5' 1) 06/09/2016 11:04 AM ABRADING MACHINE TENDER Body Mass Index 41.38 06/09/2016 11:04 AM ABRADING MACHINE TENDER documented in this encounter Discharge Instructions Discharge InstructionsErika Bucio RN - 06/10/2016 8:43 AM CST Discharge instructions for general surgery or orthopedics, same day. Today you were given medicine for pain or sedation. This medicine can cause you to: ?? Be sleepy ?? Not think clearly ?? Feel less coordinated For 24 hours after receiving the medicine: ?? [...] Do not drive or operate any heavy equipment. ?? Delay important decision-making. Do not sign any important papers. ?? No pain meds or sleeping pills for 4 hours after last dose given before discharge. Contact the doctor if you have any of the following: ?? Temperature of 101 or higher or chills ?? Prolonged nausea or vomiting ?? Increased drainage or bleeding ?? Increased tenderness or swelling ?? Pain not relieved by medication ? Other: ?? Call 911 if symptoms are severe or life threatening * DING MACHINE TENDER documented in this encounter Medications at Time of Discharge Medication Sig Dispensed Refills Start Date End Date dextroamphetamine-ampheta Take by mouth Twice 0 08/27/2016 mine (ADDERALL XR) 10 mg a Day. Oral 24hr SR caps Diaper,Brief, 1 Each by 100 Each 3 01/04/2016 06/04/2020 Adult,Disposable (DEPEND Misc.(Non-Drug; UNDERWEAR L-XL) Combo Route) route Indications: Urinary three times a day. incontinence, unspecified type ibuprofen (MOTRIN) 800 mg Take 1 Tab by mouth 120 Tab 2 1 06/17/2014 09/17/2017 Oral Tab every 8 (eight) hours as needed. methocarbamol (ROBAXIN) Take 2 tablets by 240 tablet 5 01/0109/17/2017 500 mg oral Tab mouth four times a day. oxyCODONE-acetaminophen Take 1-2 Tabs by 0 09/21/2017 (PERCOCET) 10-325 mg oral mouth every 6 (six) Tab hours as needed (pain). senna (SENNA) 8.6 mg oral Take 1-2 tablets by 60 tablet 5 0 01/02/2016 07/03/2016 Tab mouth Once Daily. sodium chloride 0.65% Instill 1-2 Sprays 1 Bottle 11 201412/02/2017 (SALINE NASAL MIST) 0.65 into EACH nare % Nasal [place] every 1 (one) hour SprAIndications: Sinus as needed. headache, Dizziness topiramate (TOPAMAX) 25 Take 4 tablets (100 120 tablet 3 11/201511/13/2016 mg oral mg) by mouth at tabletIndications: bedtime. Migraine without status migrainosus, not intractable, unspecified migraine type traZODone (DESYREL) 100 Take 300 mg by 0 08/27/2016 mg Oral Tab mouth at bedtime. triamterene-hydrochloroth 6 05/16/2015 08/27/2016 iazide 37.5 MG-25 MG (DYAZIDE) 37.5-25 mg oral Cap documented as of this encounter H&P Notes Luis Armendariz DPM - 06/10/2016 7:18 AM CST PRE-PROCEDURE NOTE CHIEF COMPLAINT / REASON FOR PROCEDURE: Painful hallux and 2nd toenails, bilateral History and Physical Reviewed: No changes in patient's medical status PRE-SEDATION ASSESSMENT: Lung Exam: Normal Heart Exam: Normal Airway Exam: Normal Previous reaction to anesthesia/sedation: No Sedation plan based on assessment: Moderate Comment(s): None ASA Classification: II = Patient with mild systemic disease IMPRESSION: Painful hallux and 2nd toenails, bilateral PLAN: Permanent total nail avulsion of hallux and 2nd toenails, bilateral Luis Armendariz DPM [facility] DING MACHINE TENDER Darrel Vásquez MD - 06/10/2016 6:57 AM CST History and Physical Update I have reviewed the patient's History and Physical and have examined the patient in the pre-op area.The patient denies any interval changes in medical condition since the H&P . Darrel Vásquez MD 06/10/2016 6:57 AM DING MACHINE TENDER documented in this encounter Nursing Notes Erika Bucio, TEREZA - 06/10/2016 9:37 AM CST Discharged by volunteer/NA per wheelchair. Family / Patient received and understands instructions, all questions addressed, belongings returned, and prescriptions received. Contact patient at home for post-procedure call. Okay to leave a message. DING MACHINE TENDER documented in this encounter OR Notes OR Surgeon - Luis Armendariz DPM - 06/10/2016 9:37 AM CST This procedure note has been dictated: # [id number] Luis Armendariz DPM [facility] [phone] DING MACHINE TENDER OR Surgeon - Luis Armendariz DPM - 06/10/2016 9:37 AM CST CC: Date of Service: 06/10/2016 SURGEON: Luis Armendariz DPM PREOPERATIVE DIAGNOSIS: Bilateral ingrown painful hallux and second toenails. POSTOPERATIVE DIAGNOSIS: Bilateral ingrown painful hallux and second toenails. PROCEDURE PERFORMED: Permanent total nail avulsion, matrixectomy of hallux and second toenails, bilateral. ANESTHESIA: Monitored anesthesia care with local block. HEMOSTASIS: Tourni-Cots to each digit. ESTIMATED BLOOD LOSS: 2 mL. MATERIALS USED: Phenol was applied to each nail matrix x3 for 30 seconds each. INJECTABLES: 20 mL of 0.5% Marcaine plain and 1% lidocaine plain. SPECIMENS REMOVED: Toenails x4. COMPLICATIONS: None. PROCEDURE IN DETAIL: The patient was brought into the operating room and placed on the operating table in the supine position. Following onset of IV sedation, a timeout was taken to correctly identify the patient, side, site, procedure and fire risk assessment. Next, a local infiltrator block was performed to the base of the right hallux and second digit as well as to the base of the left hallux and second digit. A total of 20 mL was injected. A Tourni-Cot was then applied to the base of the right hallux and second digit. A [place] elevator was used to free up the nail plate from the nail bed and a hemostat was used to remove the nail plate. This was performed to the right hallux, followed by the right second digit. Following removal of the nail plate, the nail matrix was curetted to ensure that there were no remaining loose fragments. Phenol was then applied with three applications to each toe matrix for 30 seconds each. The area was then thoroughly flushed with saline, bacitracin was applied tothe nail bed, covered with Adaptic, sterile 4 x 4 gauze and Coban to each toe. The Tourni-Cots were removed following the dressing and adequate perfusion was regained to the digits. The same procedure was then repeated to the left foot as described above in the exact same fashion. Tourni-Cots were then removed following the procedure as well and perfusion was regain to those digits on the left foot as well. Bilateral hallux and second toenails were permanently removed using that phenol application. The patient tolerated the above procedure and anesthesia well. She was transferred to the recovery room with vital signs stable and vascular status intact to all digits of both feet. Upon discharge fromthe hospital today, the patient will be given both oral and written postoperative instructions and will follow up with myself in one week. She was given a postoperative shoe for each foot and was instructed to ambulate as tolerated, within these shoes. She was given aftercare instructions for daily soaks and dressing changes. She was also instructed to contact our clinic with any questions or concerns, prior to her followup appointment. Luis Armendariz DPM /CD Dictation ID: [id number] DING MACHINE TENDER OR Surgeon - Luis Armendariz DPM - 06/10/2016 8:29 AM CST POST-OPERATIVE NOTE PREOPERATIVE DIAGNOSIS DX: BILATERAL INGROWN/DYSTROPHIC PAINFUL HALLUX AND SECOND TOENAILS POSTOPERATIVE DIAGNOSIS same Procedure(s): MATRIXECTOMY OF LEFT HALLUX AND SECOND TOENAIL MATRIXECTOMY OF RIGHT HALLUX AND SECOND TOENAIL Surgeon(s): Luis Armendariz DPM Canter, Keith A., DPM Distribution Agent(s): None Other surgical staff (if any): Circulating nurse: Yury Rainey RN; Rosey Molina RN gis technician: Dena Browne; Samantha Simms Anesthesia MAC EBL: 2 ml Specimen Removed: None Complications: none Findings/Conclusions: Dystrophic and thickened toenails Condition on discharge from OR: Satisfactory REPORT OF OPERATION/ PROCEDURE See dictated note. Luis Armendariz DPM [facility] DING MACHINE TENDER documented in this encounter Plan of Treatment Scheduled Referrals Name Type Priority Associated Diagnoses Order S chedule Follow Up Follow Up Routine Ordered: 2016 documented as of this encounter Procedures Procedure Name Priority Date/Time Associated Diagnosis Comme nts EXCISION TOENAIL 06/10/2016 7:27 AM DX: BILATERAL ABRADING MACHINE TENDER INGROWN/DYSTROPHIC PAINFUL HALLUX AND SECOND TOENAILS EXCISION TOENAIL 06/10/2016 7:27 AM DX: BILATERAL ABRADING MACHINE TENDER INGROWN/DYSTROPHIC PAINFUL HALLUX AND SECOND TOENAILS POTASSIUM STAT 06/10/2016 6:23 AM Results f or this ABRADING MACHINE TENDER procedure are i n the results section. documented in this encounter Results Potassium, Serum (06/10/2016 6:23 AM ABRADING MACHINE TENDER) P athologist Signature POTASSIUM 3.8 3.5 - 5.1 06/10/2016 [facility] mMol/L 7:14 AM ABRADING MACHINE TENDER LABORATORY Specimen Anatomical Collection Method Collection Time Receive d Time (Source) Location / / Volume Laterality Blood PERIPHERAL BLOOD 06/10/2016 6:23 AM 06/10 6:49 SPECIMEN / Unknown ABRADING MACHINE TENDER AM ABRADING MACHINE TENDER Lexy Aguayo MD CHEMISTRY ORDERABLE Performing Organization Address City/State/ZIP Code Phon e Number [address] [place] [address] [place] [address] documented in this encounter Visit Diagnoses Not on filedocumented in this encounter Administered Medications Inactive Administered Medications - up to 3 most recent administrations Medication Order MAR Action Action Date Dose Rate Site saline FLUSH syringe 5 mL 5 mL, Intravenous, EVERY 8 HOURS, First dose on Thu at 0615, Until Discontinued saline FLUSH syringe 5 mL Given 06/10/2016 6:27 AM ABRADING MACHINE TENDER 5 mL 5 mL, Intravenous, NEEDED, Starting on Thu06/10/16 at 0600, Until Thu06/10/16 at 1537, Line Care acetaminophen (TYLENOL) tablet 325-650 m g 325-650 mg (1-2 tablet), oral, ONCE NEEDED, Startin g on Thu06/10/16 at 0836, Until Thu06/10/16 at 153, Phase 1/2, Mild Pain atropine syringe 0.5 mg 0.5 mg, Intravenous, NEEDED, Starting on Thu06/10/16 at 0836, Until Thu06/10/16 at 153, Phase 1/2, bradycardia, for yazmin den bradycardia; for heart rate less than 50 bpm WITH HYPOTENSION - NOTIFY ANESTHESIOLOGIST citric acid-sodium citrate (BICITRA) carmen ution 30 mL 30 mL, oral, ONCE NEEDED, Starting on Thu06/10/16 at 0836, Until Thu06/10/16 at 153, Phase 1/2, for dyspepsia fentaNYL (SUBLIMAZE) injection 25-50 mcg 25-50 mcg, Intravenous, EVERY 5 MINUTES NEEDED, Starting on Thu06/10/16 at 0836, Until Thu06/10/16 at 153, Phase 1/2, for acute surgic al pain HYDROcodone-acetaminophen (NORCO) 5-325 mg tablet 1-2 tablet 1-2 tablet, oral, ONCE NEEDED, Starting on 06/10 at 0836, Until Thu06/10/16 at 153, Phase 1/2, pain, for moderate pain wh ile in recovery area HYDROmorphone (DILAUDID) syringe 0.2-0.4 mg 0.2-0.4 mg, Intravenous, EVERY 5 MINUTES NEEDED, 5 doses, Starting on Thu06/10/16 at 0836, Until Thu06/10/16 at 153, Phase 1/2, for post acute pain management while in recovery area. hydrOXYzine pamoate (VISTARIL) capsule 2 5-50 mg 25-50 mg, oral, ONCE NEEDED, 1 dose, Starting on Thu06/10/16 at 0836, Until Thu06/10/16 at 153, Phase 1/2, for augmenta tion of narcotic based analgesia while in recovery area. lidocaine 1% (XYLOCAINE) injection 0.1-0 .3 mL 0.1-0.3 mL, Intradermal, NEEDED, Starting on Thu at 0600, Until Thu06/10/16 at 1537, IV start or restart lidocaine 1% / 8.4% sod bicarb (buffered lidocaine) syringe for IV starts 0.1-0.3 mL 0.1-0.3 mL, Intradermal, NEEDED, Starting on Thu at 0600, Until Thu06/10/16 at 153, IV line placement, IV start or restar t lidocaine 1% injection (conc: 10 mg/mL) 10 mL 10 mL (rounded from 9.97 mL = 1 mg/kg ? 99.7 kg Dosing weight), Intravenous, ONCE NEEDED, S tarting on Thu06/10/16 at 0836, Until Thu06/10/16 at 1536, Phase 1 /2, Local Anesthesia, for severe coughing or stridor ( laryngospasm ) meperidine (preservative free) (DEMEROL) syringe 12.5 mg 12.5 mg, Intravenous, EVERY 5 MINUTES NEEDED, 2 doses, Starting on Thu06/10/16 at 0836, Until Thu06/10/16 at 153, Phas e 1/2, for shivering, Do not use meperidine for pain control per recommendation of the [place] in Society, [place] for Safe Medication Practices (ISMP) and the [facility]. metoclopramide HCl (REGLAN) injection 10 mg 10 mg, Intravenous, EVERY 3 HOURS NEE DED, 2 doses, Starting on Thu06/10/16 at 0836, Until Thu06/10/16 at 1536, Phase 1/2, nausea & v omiting midazolam (PF) (VERSED) injection 0.5-1 mg 0.5-1 mg, Intravenous, EVERY 10 MINUTES NEEDED, 2 doses, Starting on Thu06/10/16 at 0836, Until Thu06/10/16 at 1536, Phase 1/2, for res tlessness ondansetron (ZOFRAN) injection 4 mg 4 mg, Intravenous, EVERY 8 HOURS NEEDED, 2 doses, S tarting on Thu06/10/16 at 0836, Until Thu06/10/16 at 1537, Phase 1/2, nausea & v omiting oxyCODONE (immediate release) (ROXICODON E) tablet 5-10 mg 5-10 mg, oral, ONCE NEEDED, 1 dose, S tarting on Thu06/10/16 at 0836, Until Thu06/10/16 at 1537, Phase 1/2, pain, for moderate pain wh ile in recovery area. oxyCODONE-acetaminophen (PERCOCET) table t 1-2 tablet 1-2 tablet, oral, ONCE NEEDED, Starting on 06/10 at 0836, Until Thu06/10/16 at 1537, Phase 1/2, pain, for moderate pain wh ile in recovery area phenol liquified 89% topical solution 4 mL topical, DIRECTED, Starting on Thu at 0709, Until Thu06/10/16 at 1537 documented in this encounter Active and Recently Administered Medications Times are shown in ABRADING MACHINE TENDER. Scheduled Medication Order 06/08/2016 06/09/2016 06/10/2016 saline FLUSH syringe 5 mL 0615 (Due) 5 mL, Intravenous, EVERY 8 HOURS, First dose on Thu06/10/16 at 0615, Until Discontinued ceFAZolin (ANCEF) IV syringe (OP) (COMPLETED) 0733 (Given - Provider: Aydee Mary APRN, COMMUNICATIONS STRATEGIST) Intravenous, ONCE ON INDUCTION, 1 dose, Starting Thu06/09/16 at 1110, Until Discontinued phenol liquified 89% topical solution 4 mL Topical, DIRECTED, Starting Thu06/10/16 at 0709, Until Thu at 1537 PRN Medication Order 06/08/2016 06/09/2016 06/10/2016 saline FLUSH syringe 5 mL 0627 (Given - Provider: Leonidas Houston RN) 5 mL, Intravenous, NEEDED, Starting T ue 06/10/16 at 0600, Until Thu06/10/16 at 1537, Line Care acetaminophen (TYLENOL) tablet 325-650 mg 325-650 mg (1-2 tablet), oral, ONE TIME DOSE NEEDED, Starting Thu06/10/16 at 0836, Until Thu06/10/16 at 1537, PACU, Mild Pain atropine syringe 0.5 mg 0.5 mg, Intravenous, NEEDED, Starting Thu06/10/16 at 0836, Until Thu06/10/16 at 1537, PACU, Bradycardia, for sudden bradycardia; for heart rate less than 50 bpm WITH HYPOTENSION - NOTIFY ANESTHESIOLOGIST bacitracin topical ointment (CANCELED) 0755 (Given - Provider: Luis Armendariz DPM) INTRA-PROCEDURE NEEDED, Starting Thu06/10/16 at 0755, Until Thu06/10/16 at 1537, Intra-Op bupivacaine 0.5% with lidocaine 1% - MIXTURE (CANCELED) 0740 (Given - Provider: Luis Armendariz DPM) INTRA-PROCEDURE NEEDED, Starting Thu06/10/16 at 0740, Until Thu06/10/16 at 1537, Intra-Op citric acid-sodium citrate (BICITRA) solution 30 mL 30 mL, oral, ONE TIME DOSE NEEDED, St arting Thu06/10/16 at 0836, Until Thu06/10/16 at 1537, PACU, for dyspepsia fentaNYL (SUBLIMAZE) injection 25-50 mcg 25-50 mcg, Intravenous, EVERY 5 MINUTES NEEDED, Starting Thu06/10/16 at 0836, Until Thu06/10/16 at 1537, PACU, for acute surgical pain, This medication has a Blackbox Warning. Click the formulary reference link for more information. HYDROcodone-acetaminophen (NORCO) 5-325 mg tablet 1-2 tablet 1-2 tablet, oral, ONE TIME DOSE NEEDE D, Starting Thu06/10/16 at 0836, Until Thu06/10/16 at 1537, PACU, Pain, for moderate pain while in recovery area HYDROmorphone (DILAUDID) syringe 0.2-0.4 mg 0.2-0.4 mg, Intravenous, EVERY 5 MINUTES NEEDED, 5 doses, Starting Thu06/10/16 at 0836, Until Thu06/10/16 at 1537, PACU, for post acute pain management while in recovery area. hydrOXYzine pamoate (VISTARIL) capsule 25-50 mg 25-50 mg, oral, ONE TIME DOSE NEEDED, 1 dose, Starting Thu06/10/16 at 0836, Until Thu06/10/16 at 153, PACU, for augmentation of narcotic based analgesia while in recovery area. lidocaine 1% (XYLOCAINE) injection 0.1-0.3 mL 0.1-0.3 mL, Intradermal, NEEDED, Star ting Thu06/10/16 at 0600, Until Thu06/10/16 at 1537, IV start or restart lidocaine 1% / 8.4% sod bicarb (buffered lidocaine) syringe for IV starts 0.1- 0.3 mL 0.1-0.3 mL, Intradermal, NEEDED, Star ting Thu06/10/16 at 0600, Until Thu06/10/16 at 153, IV line placement, IV start or restart lidocaine 1% injection (conc: 10 mg/mL) 10 mL 10 mL (rounded from 9.97 mL = 1 mg/kg ? 99.7 kg Dosing weight), Intravenous, ONE TIME DOSE NEEDED, Starting Thu06/10/16 at 0836, Until Thu06/10/16 at 1536, PACU, Local Anesthesia, for severe coughing or stridor ( laryngospasm ) meperidine (preservative free) (DEMEROL) syringe 12.5 mg 12.5 mg, Intravenous, EVERY 5 MINUTES NEEDED, 2 doses, Starting Thu06/10/16 at 0836, Until Thu06/10/16 at 153, PACU, for shivering, Do not use meperidine for pain control per recommendation of the [place] [employer], [place] for Safe Medication Practices (ISMP) and the [facility]. metoclopramide HCl (REGLAN) injection 10 mg 10 mg, Intravenous, EVERY 3 HOURS NEE DED, 2 doses, Starting Thu06/10/16 at 0836, Until Thu06/10/16 at 153, PACU, Nausea & Vomiting midazolam (PF) (VERSED) injection 0.5-1 mg 0.5-1 mg, Intravenous, EVERY 10 MINUTES NEEDED, 2 doses, Starting Thu06/10/16 at 0836, Until Thu06/10/16 at 1537, PACU, for restlessness, This medication has a Blackbox Warning. Click the formulary reference link for more information. ondansetron (ZOFRAN) injection 4 mg 4 mg, Intravenous, EVERY 8 HOURS NEED ED, 2 doses, Starting Thu06/10/16 at 0836, Until Thu06/10/16 at 1537, PACU, Nausea & Vomiting oxyCODONE (immediate release) (ROXICODONE) tablet 5-10 mg 5-10 mg, oral, ONE TIME DOSE NEEDED, 1 dose, Starting Thu06/10/16 at 0836, Until Thu06/10/16 at 1537, PACU, Pain, for moderate pain while in recovery area. oxyCODONE-acetaminophen (PERCOCET) tablet 1-2 tablet 1-2 tablet, oral, ONE TIME DOSE NEEDE D, Starting Thu06/10/16 at 0836, Until Thu06/10/16 at 1537, PACU, Pain, for moderate pain while in recovery area phenol liquified 89% topical solution (CANCELED) 0755 (Given - Provider: Luis Armendariz DPM) INTRA-PROCEDURE NEEDED, Starting Thu06/10/16 at 0755, Until Thu06/10/16 at 1537, Intra-Op No Frequency Medication Order 06/08/2016 06/09/2016 06/10/2016 ONDANSETRON HCL (PF) 4 MG/2 ML INJECTION SOLUTION (COMPLETED) 0810 (Given - Provider: Aydee Mary APRN, COMMUNICATIONS STRATEGIST) 1 dose, Starting on Thu06/10/16 at 0638, Until Thu06/10/16 at 06 38 documented in this encounter Care Teams Landman Relationship Specialty Start Date End Date Jacques Alcantara MD PCP - General Family Medicine 12/15/12 [facility], PCP - Primary Care Clinic 3 09/16/17 [facility] documented as of this encounter
--- OUTSIDE RECORDS SUMMARY | 2022-01-24 09:46 | XMS_ITS | Encounter Summary ---
:1975 Author Organization [facility] Address [address] [place] [address] Care Team Providers Name Role Phone Jacques Alcantara MD Primary Care Provider Unavailable [facility] Unavailable Unavailable Reason for Visit Inpatient Admission Specialty Diagnoses / Procedures Referred By Contact Refer red To Contact Procedures [id number] Referral ID Status Reason Start Date Expiration Date Visits Requ ested Visits Authorized [id number] 1 1 Encounter Details Date Type Department Care Team Description 06/10/2016 Surgery [facility] Alejandro Armendariz DPM MATRIXECTOMY OF LEFT Hospital Operating [address] [place] AND SECOND Room [address] [place] [place] [address] 5542 2 [phone] (Wo rk) Surgery Details Date/Time Status Location OR Service Patient Case Class Case Type Trauma Class Case? 06/10/16 7:30 Posted [facility] ORS 05 Podiatry Same Day AM Surgery Panel 1 Procedure LRB Anes Op Region Wound Class Commen ts MATRIXECTOMY OF LEFT HALLUX AND SECOND Left MAC Toe Clean (I) TOENAIL Panel 2 Procedure LRB Anes Op Region Wound Class Commen ts MATRIXECTOMY OF RIGHT HALLUX AND SECOND Right MAC Toe Clean (I) TOENAIL Surgeon Surgeon Role Service Panel Luis Armendariz DPM Primary Podiatry 1 Luis Armendariz DPM Primary Podiatry 2 documented in this encounter Social History Tobacco Use Types Packs/Day Years [...] Comments Blood Pressure 119/74 06/10/2016 9:22 AM PRICE ECONOMIST Pulse 61 06/10/2016 9:22 AM PRICE ECONOMIST Temperature 36.4 ??C (97.6 ??F) 06/10/2016 8:27 AM PRICE ECONOMIST Respiratory Rate 16 06/10/2016 8:27 AM PRICE ECONOMIST Oxygen Saturation 97% 06/10/2016 8:50 AM PRICE ECONOMIST Inhaled Oxygen Concentration - - Weight 99.3 kg (219 lb) 06/10/2016 6:10 AM PRICE ECONOMIST Height 154.9 cm (5' 1) 06/09/2016 11:04 AM PRICE ECONOMIST Body Mass Index 41.38 06/09/2016 11:04 AM PRICE ECONOMIST documented in this encounter Discharge Instructions Discharge [...] symptoms are severe or life threatening * E ECONOMIST documented in this encounter Medications at Time [...] MIST) 0.65 into EACH nare % Nasal [place] every 1 (one) hour SprAIndications: Sinus as [...] and 2nd toenails, bilateral Luis Armendariz DPM [facility] Podiatry Service E ECONOMIST Darrel Vásquez MD - 06/10/2016 6:57 AM CST History and Physical Update I have reviewed the patient's History and Physical and have examined the patient in the pre-op area.The patient denies any interval changes in medical condition since the H&P . Darrel Vásquez MD 06/10/2016 6:57 AM E ECONOMIST documented in this encounter Nursing Notes Erika Bucio RN - 06/10/2016 9:37 AM CST Discharged by volunteer/NA per wheelchair. Family / Patient received and understands instructions, all questions addressed, belongings returned, and prescriptions received. Contact patient at home for post-procedure call. Okay to leave a message. E ECONOMIST documented in this encounter OR Notes OR Surgeon - Luis Armendariz DPM - 06/10/2016 9:37 AM CST This procedure note has been dictated: # [id number] Luis Armendariz DPM [facility] Podiatry Service [phone] E ECONOMIST OR Surgeon - Luis Armendariz DPM - [...] the right hallux and second digit. A [place] elevator was used to free up the [...] appointment. Luis Armendariz DPM /CD Dictation ID: [id number] E ECONOMIST OR Surgeon - Luis Armendariz DPM - 06/10/2016 8:29 AM CST POST-OPERATIVE NOTE PREOPERATIVE DIAGNOSIS DX: BILATERAL INGROWN/DYSTROPHIC PAINFUL HALLUX AND SECOND TOENAILS POSTOPERATIVE DIAGNOSIS same Procedure(s): MATRIXECTOMY OF LEFT HALLUX AND SECOND TOENAIL MATRIXECTOMY OF RIGHT HALLUX AND SECOND TOENAIL Surgeon(s): Luis Armendariz DPM Canter, Keith A., DPM Journeyman Level Acoustic Analyst(s): None Other surgical staff (if any): Circulating nurse: Yury Rainey RN; Rosey Molina RN point of care technician: Dena Browne Michelle Anesthesia MAC EBL: 2 ml Specimen Removed: None Complications: none Findings/Conclusions: Dystrophic and thickened toenails Condition on discharge from OR: Satisfactory REPORT OF OPERATION/ PROCEDURE See dictated note. Luis Armendariz DPM [facility] Podiatry Service E ECONOMIST documented in this encounter Plan of Treatment Scheduled Referrals Name Type Priority Associated Diagnoses Order S chedule Follow Up Follow Up Routine Ordered: 2016 documented as of this encounter Procedures Procedure Name Priority Date/Time Associated Diagnosis Comme nts EXCISION TOENAIL 06/10/2016 7:27 AM DX: BILATERAL PRICE ECONOMIST INGROWN/DYSTROPHIC PAINFUL HALLUX AND SECOND TOENAILS EXCISION TOENAIL 06/10/2016 7:27 AM DX: BILATERAL PRICE ECONOMIST INGROWN/DYSTROPHIC PAINFUL HALLUX AND SECOND TOENAILS POTASSIUM STAT 06/10/2016 6:23 AM Results f or this PRICE ECONOMIST procedure are i n the results section. documented in this encounter Results Potassium, Serum (06/10/2016 6:23 AM PRICE ECONOMIST) athologist Signature POTASSIUM 3.8 3.5 - 5.1 06/10/2016 [facility] mMol/L 7:14 AM PRICE ECONOMIST LABORATORY Specimen Anatomical Collection Method Collection Time Receive d Time (Source) Location / / Volume Laterality Blood PERIPHERAL BLOOD 06/10/2016 6:23 AM 06/10 6:49 SPECIMEN / Unknown PRICE ECONOMIST AM PRICE ECONOMIST Lexy Aguayo MD CHEMISTRY ORDERABLE Performing Organization Address City/State/ZIP Code Phon e Number [address] [address] [address] documented in this encounter Visit Diagnoses Not on filedocumented in this encounter Administered Medications Inactive Administered Medications - up to 3 most recent administrations Medication Order MAR Action Action Date Dose Rate Site saline FLUSH syringe 5 mL 5 mL, Intravenous, EVERY 8 HOURS, First dose on Thu at 0615, Until Discontinued saline FLUSH syringe 5 mL Given 06/10/2016 6:27 AM PRICE ECONOMIST 5 mL 5 mL, Intravenous, NEEDED, Starting [...] HYPOTENSION - NOTIFY ANESTHESIOLOGIST bacitracin topical ointment Given 06/10/2016 7:55 AM 1 Application Procedur al INTRA-PROCEDURE NEEDED, PRICE ECONOMIST Starting on Thu06/10/16 at 0755, Until Thu06/10/16 at 1537, Intra-Op bupivacaine 0.5% with lidocaine 1% - Given 06/10/2016 7:40 AM CS T 20 mL Procedural MIXTURE INTRA-PROCEDURE NEEDED, Starting on Thu06/10/16 at 0740, Until Thu06/10/16 at 1537, Intra-Op citric acid-sodium citrate (BICITRA) carmen ution 30 [...] at 0600, Until Thu06/10/16 at 153, IV start or restart lidocaine 1% / [...] Thu06/10/16 at 0836, Until Thu06/10/16 at 1536, Phas e 1/2, for shivering, Do not use meperidine for pain control per recommendation of the [place] in Society, [place] for Safe Medication Practices (ISMP) and the [facility]. metoclopramide HCl (REGLAN) injection 10 [...] Thu at 0709, Until Thu06/10/16 at 1537 phenol liquified 89% topical solution Given 06/10/2016 7:55 AM PRICE ECONOMIST 7 mL Proce dural INTRA-PROCEDURE NEEDED, Starting on Thu06/10/16 at 0755, Until Thu06/10/16 at 1537, Intra-Op documented in this encounter Active and Recently Administered Medications Times are shown in PRICE ECONOMIST. Scheduled Medication Order 06/08/2016 06/09/2016 06/10/2016 saline FLUSH syringe 5 mL 0615 (Due) 5 mL, Intravenous, EVERY 8 HOURS, First dose on Thu06/10/16 at 0615, Until Discontinued ceFAZolin (ANCEF) IV syringe (OP) (COMPLETED) 0733 (Given - Provider: Aydee Mary APRN, PANEL BEATER) Intravenous, ONCE ON INDUCTION, 1 dose, Starting [...] at 0600, Until Thu06/10/16 at 1537, IV line placement, IV start or restart lidocaine 1% injection (conc: 10 mg/mL) 10 mL 10 mL (rounded from 9.97 mL = 1 mg/kg ? 99.7 kg Dosing weight), Intravenous, ONE TIME DOSE NEEDED, Starting Thu06/10/16 at 0836, Until Thu06/10/16 at 153, PACU, Local Anesthesia, for severe coughing or stridor ( laryngospasm ) meperidine (preservative free) (DEMEROL) syringe 12.5 mg 12.5 mg, Intravenous, EVERY 5 MINUTES NEEDED, 2 doses, Starting Thu06/10/16 at 0836, Until Thu06/10/16 at 153, PACU, for shivering, Do not use meperidine for pain control per recommendation of the [place] Pain Society, [place] for Safe Medication Practices (ISMP) and the [facility]. metoclopramide HCl (REGLAN) injection 10 mg 10 mg, Intravenous, EVERY 3 HOURS NEE DED, 2 doses, Starting Thu06/10/16 at 0836, Until Thu06/10/16 at 1537, PACU, Nausea & Vomiting midazolam (PF) (VERSED) [...] 0810 (Given - Provider: Aydee Mary APRN, PANEL BEATER) 1 dose, Starting on Thu06/10/16 at 0638, Until Thu06/10/16 at 06 38 documented in this encounter Care Teams Operations Technician Relationship Specialty Start Date End Date Jacques Alcantara MD PCP - General Family Medicine 12/15/12 [facility], PCP - Primary Care Clinic 3 09/16/17 [facility] documented as of this encounter
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
--- OUTSIDE RECORDS SUMMARY | 2022-01-24 09:46 | XMS_ITS | Encounter Summary ---
:1975 Author Organization [facility] Address [address] [place] [address] Care Team Providers Name Role Phone Jacques Alcantara MD Primary Care Provider Unavailable [facility] Unavailable Unavailable Reason for Referral Consultation (Routine) - Auth-No PA/Ref Req Specialty Diagnoses / Procedures Referred By Contact Refer red To Contact Psychiatry Diagnoses Bipolar affective disorder in remission (HCC) Jacques Alcantara MD [facility] [address] [place] [address] [address] [place] [address] Phone: Referral ID Status Reason Start Expiration Visits Visits Date Date Requested Authorized [id number] Auth-No Specialty 08/27/2016 1 1 PA/Ref Req Services Required Comments Bipolar on multiple medications. (Routine) - Closed Specialty Diagnoses / Procedures Referred By Contact Refer red To Contact Diagnoses Routine screening for STI (sexually transmitted infection) Jacques Alcantara MD Procedures SYPHILIS ANTIBODY SCREEN, SERUM [id number] [place] [address] Referral ID Status Reason Start Date Expiration Date Visits Requ ested Visits Authorized [id number] Closed 08/27/2016 08/27/2017 1 1 (Routine) - Closed Specialty Diagnoses / Procedures Referred By Contact Refer red To Contact Diagnoses Routine screening for STI (sexually transmitted infection) Jacques Alcantara MD Procedures HIV 1 AND 2 ANTIGEN AND ANTIBODY SCREEN [address] [place] [address] Referral ID Status Reason Start Date Expiration Date Visits Requ ested Visits Authorized [id number] Closed 08/27/2016 08/27/2017 1 1 (Routine) - Closed Specialty Diagnoses / Procedures Referred By Contact Refer red To Contact Diagnoses Routine screening for STI (sexually transmitted infection) Jacques Alcantara MD Procedures CHLAMYDIA/NEISSERIA PCR-URINE [address] [place] [address] Referral ID Status Reason Start Date Expiration Date Visits Requ ested Visits Authorized [id number] Closed 08/27/2016 08/27/2017 1 1 (Routine) - Closed Specialty Diagnoses / Procedures Referred By Contact Refer red To Contact Diagnoses Pap smear for cervical cancer screening Jacques Alcantara MD Procedures HPV HIGH RISK DNA WITH 16/[id number] [place] [address] Referral ID Status Reason Start Date Expiration Date Visits Requ ested Visits Authorized [id number] Closed 08/27/2016 08/27/2017 1 1 (Routine) - Closed Specialty Diagnoses / Procedures Referred By Contact Refer red To Contact Diagnoses Screening, ischemic heart disease Jacques Alcantara MD Procedures LIPID PROFILE [place] [id number] [place] [address] Referral ID Status Reason Start Date Expiration Date Visits Requ ested Visits Authorized [id number] Closed 08/27/2016 08/27/2017 1 1 Reason for Visit Reason Comments Physical Lab draw fasting Question wants to know if she should get a colonscopy since her maternal grandmother had colon cancer , dx'd with colon ca at 68. Referral request to a new psychiatrist Smoking cessation looking at chantix Encounter Details Date Type Department Care Team Description 08/27/2016 Office Visit [facility] Jacques Alcantara, An nual physical exam (Primary Dx); Clinic - [facility] Vitamin D deficiency; [address] [facility] Bronchosp asm; [place]. Migraine without status migr ainosus, not intractable, unspecified migraine type; [place] [id number] 4 Bipolar affective disorder i n remission ([facility]); [phone] Elevated fastin g blood sugar; Screening, isch emic heart disease; Routine screeni ng for STI (sexually transmitted infection); Pap smear for c ervical cancer screening Social History Tobacco Use Types Packs/Day Years [...] Reading Time Taken Comments Blood Pressure 118/74 08/27/2016 9:03 AM CDT Pulse 80 08/27/2016 9:03 AM CDT Temperature 36.7 ??C (98 ??F) 08/27/2016 9:03 AM CDT Respiratory Rate 16 08/27/2016 9:03 AM CDT Oxygen Saturation - - Inhaled Oxygen Concentration - - Weight 96.3 kg (212 lb 6.4 oz) 08/27/2016 9:03 AM CDT Height 154.9 cm (5' 1) 08/27/2016 9:03 AM CDT Body Mass Index 40.13 08/27/2016 9:03 AM CDT documented in this encounter Progress Notes Jacques Alcantara MD - 08/27/2016 9:00 AM CDT SUBJECTIVE: 41 y.o. female for annual exam Diet is improving Exercises walking 3x week Sees Dentist regularly Vision concerns regularly Lives with family Does not Work on Q-goI Last Tdap 2013 Flu Shot annually Current Outpatient Prescriptions Medication Sig Dispense Refill ??? albuterol HFA (PROAIR HFA) 90 mcg/actuation Inhl inhaler Inhale 2 puffs every 4 (four) hours as needed. 18 g 3 ??? Cholecalciferol, Vitamin D3, (VITAMIN D3) 2,000 unit oral capsule Take 1 capsule by mouth once daily. 90 capsule 3 ??? dextroamphetamine-amphetamine (ADDERALL XR) 15 mg oral extended release capsule 24 HR Take 1 capsule (15 mg) by mouth every morning for 30 days. 30 capsule 0 ??? [START ON 09/26/2016] dextroamphetamine-amphetamine (ADDERALL XR) 15 mg oral extended release capsule 24 HR Take 1 capsule (15 mg) by mouth every morning for 30 days. 30 capsule 0 ??? [START ON 10/26/2016] dextroamphetamine-amphetamine (ADDERALL XR) 15 mg oral extended release capsule 24 HR Take 1 capsule (15 mg) by mouth every morning for 30 days. 30 capsule 0 ??? Diaper,Brief, Adult,Disposable (DEPEND UNDERWEAR L-XL) 1 Each by [facility]Non- Drug; Combo Route) route three times a day. 100 Each 3 ??? diazePAM (VALIUM) 10 mg oral tablet TK 1 T PO BID PRN 2 ??? gabapentin (NEURONTIN) 300 mg oral capsule [...] times a day. 240 tablet 5 ??? oxyCODONE-acetaminophen (PERCOCET) 10-325 mg oral Tab Take 1-2 Tabs by mouth every 6 (six) hoursas needed (pain). ??? rOPINIRole (REQUIP) 3 mg Oral Tab Take 1 Tab by mouth Once Daily. 90 Tab 3 ??? sodium chloride 0.65% (SALINE NASAL MIST) 0.65 % Nasal [employer] SprA Instill 1- 2 Sprays into EACH nare every 1 (one) hour as needed. 1 Bottle 11 ??? topiramate (TOPAMAX) 100 mg oral tablet Take 1 tablet (100 mg) by mouth once daily. 90 tablet 3 ??? topiramate (TOPAMAX) 25 mg oral tablet Take 4 tablets (100 mg) by mouth at bedtime. 120 tablet 3 ??? traZODone (DESYREL) 300 mg oral tablet Take 1 tablet (300 mg) by mouth at bedtime as needed. 90 tablet 3 ??? ziprasidone hcl (GEODON) 40 mg oral capsule Take 1 capsule (40 mg) by mouth every morning. Takes40 mg in the morning 90 capsule 1 ??? ziprasidone hcl (GEODON) 60 mg oral capsule Take 1 capsule (60 mg) by mouth at bedtime. 90 capsule 1 No current facility-administered medications for this visit. Allergies: Review of patient's allergies indicates no known allergies. No LMP recorded (lmp unknown). Patient has had a hysterectomy. Review of Systems - General: No fevers, chills, weight loss Eyes: No acute change in vision or other eye disease Ears: No acute change in hearing Oropharynx: No sore throat or URI symptoms CV: No chest pain or palpitations. Resp: No shortness of breath or cough. No hemoptysis. GI: No nausea, vomiting, constipation, diarrhea, melena or abdominal pain : No urinary pain, change in color, or frequency MS: chronic improving back pain Skin: No new rashes or lesions Neuro: No alterations in thinking, paresthesias, or weakness RF MANAGER ROS: Hysterectomy however has ovaries and states she has cervix as well. OBJECTIVE: The patient appears well, in NAD. BP 118/74 (BP Cuff Site: Left arm, BP Cuff Position: Sitting, BP Cuff Size: Large adult) Pulse 80 Temp 98 ??F (36.7 ??C) (Oral) Resp 16 Ht 1.549 m (5' 1) Wt 96.3 kg (212 lb 6.4 oz) LMP (LMP Unknown) ? No BMI 40.13 kg/m?? General - alert & orientated, pleasant and comfortable Head - Normocephalic, atraumatic. Eyes - Pupils are equal, round and reactive to light bilaterally. Extraocular movements are intact bilaterally. Sclera and conjunctiva clear. Lids without lesions. Ears - Tympanic membranes clear bilaterally. External canals without lesion. Mouth - oropharynx is clear without exudates. Neck - no cervical adenopathy, thyromegally, JVD or carotid bruits noted. Lungs - Clear to auscultation bilaterally, no wheezes, rales or rhonchi. CV - Regular rate and rhythm, no murmurs, rubs or gallops. Abdomen - Non-tender, non-distended, positive bowel sounds, no masses, no hepatosplenomegaly. No rebound or guarding. Upper Extremities - No edema or deformities. Radial pulses strong bilaterally. Lower Extremities - No edema. Dorsalis pedis pulses strong bilaterally. Cap refill is brisk bilaterally. MSK - normal gait - wearing back brace today healing from recent surgery. Skin - warm, dry, intact. No rashes or erythema. PELVIC EXAM: exam chaperoned by nurse, ADRIEL within normal limits, normal cervix without lesions, polyps or tenderness ASSESSMENT/PLAN: Annual exam - counseled on diet and exercise goals. Reviewed healthfinder.gov recommendations. Counseled on annual flu shot. Annual physical exam - Counseled pt on diet and exercise goals. Counseled and provided and read pt handout on mediterranean diet. Counseled on Healthfinder.gov recommendations. Counseled on annual flu shot in fall. Vitamin D deficiency - Plan: Cholecalciferol, Vitamin D3, (VITAMIN D3) 2,000 unit oral capsule - refilled for patient today. Bronchospasm - Plan: albuterol HFA (PROAIR HFA) 90 mcg/actuation Inhl inhaler - refilled for patienttoday. Elevated fasting blood sugar - Plan: HGB A1C (GLYCO HGB) OP - Will follow up on lab results as they are available. Screening, ischemic heart disease - Plan: LIPID PROFILE CASCADE - Will follow up on lab results as they are available. Routine screening for STI (sexually transmitted infection) - Plan: CHLAMYDIA/NEISSERIA PCR-URINE, HIV 1 AND 2 ANTIGEN AND ANTIBODY SCREEN, SYPHILIS ANTIBODY SCREEN, SERUM - Will follow up on lab results as they are available. Pap smear for cervical cancer screening - Plan: PAP TEST (RF MANAGER CYTOLOGY), HPV HIGH RISK DNA WITH 16/18 GENOTYPING, PAP COLLECTION, WET PREP EXAM OP - Will follow up on lab results as they are available. Health Topics Covered in addition to annual exam. Migraine without status migrainosus, not intractable, unspecified migraine type -states that she's had a recent worsening of her migraines they become more pronounced and frequent. States this is happening over the past few weeks maybe even longer than a month. Topamax is helping but not resolving hersymptoms. Bipolar affective disorder in remission (HCC) - patient sugar she was fired by her psychiatrist because she missed too many appointments she is requesting that I refill all of her medications today andtake ermq-xai-dmyervi care. She is on controlled substances Adderall and does smoke pot daily. Her sister also has stolen family members Adderall in the past. ROS Head: Recent increase of migraine headaches severity and frequency- no recent trauma Psych: Stable bipolar on current regimen PE Neurologic - Cranial nerves 2-12 intact, Pateller, brachioradialis reflexes intact. Muscle tone, bulk and strength within normal limits throughout. Psych - Judgment and mental status are clear, patient has questionable to poor insight. Mood is stable. A/P Migraine without status migrainosus, not intractable, unspecified migraine type - Plan: topiramate (TOPAMAX) 100 mg oral tablet - refilled Topamax for patient today she will continue to monitor. I discussed recent worsening symptoms could be related to some spring-type allergy symptoms and she should start taking allergy medications. She expressed her understanding. Bipolar affective disorder in remission (HCC) - Plan: gabapentin (NEURONTIN) 300 mg oral capsule, ziprasidone hcl (GEODON) 40 mg oral capsule, ziprasidone hcl (GEODON) 60 mg oral capsule, dextroamphetamine-amphetamine (ADDERALL XR) 15 mg oral extended release capsule 24 HR, dextroamphetamine-amphetamine (ADDERALL XR) 15 mg oral extended release capsule 24 HR, dextroamphetamine-amphetamine (ADDERALL XR) 15 mg oral extended release capsule 24 HR, traZODone (DESYREL) 300 mg oral tablet, REFERRAL PSYCHIATRY - counseled patient that she needs to reestablish care with psychiatry A Will refill her medications for the next 3 months while she gets in with a new psychiatrist. A referral was placed today I did give her multiple options as it can take a while to get established. She is doing well overall. Pt to return in 3 months if not able to est care with psychiatry sooner, sooner as needed. Options for treatment and follow-up care were reviewed with the patient and/or guardian. Maria Del Rosario A Thatcher and/or guardian engaged in the decision making process and verbalized understanding of the optionsdiscussed and agreed with the final plan. Jacques Alcantara MD - 08/27/2016 9:00 AM CDT Call patient reviewed elevated cholesterol levels will recheck in 6 months continue with diet and exercise changes and weight loss that she already has good moment. Reviewed improved blood sugar numbers and normal wet prep. Jacques Alcantara MD - 08/27/2016 9:00 AM CDT Sent letter with normal lab results. documented in this encounter Plan of Treatment Scheduled Orders Name Type Priority Associated Diagnoses Order S chedule PAP COLLECTION Procedures Routine Pap smear for cervical can cer Ordered: 08/27/2016 screening Scheduled Referrals Name Type Priority Associated Diagnoses Order S chedule REFERRAL PSYCHIATRY Referral Routine Bipolar affective dis order Ordered: 08/27/2016 in remission (HCC) documented as of this encounter Procedures Procedure Name Priority Date/Time Associated Diagnosis Comme nts WET PREP EXAM OP Routine 08/27/2016 10:58 Pap smear for Result s for this AM CDT cervical cancer procedure ar e in screening the results section. SYPHILIS ANTIBODY Routine 08/27/2016 9:50 AM Routine screening Results for this SCREEN, SERUM CDT for STI (sexually procedure are in transmitted the results infection) section. HGB A1C (GLYCO HGB) Routine 08/27/2016 9:50 AM Elevated fastin g Results for this OP CDT blood sugar procedure are i n the results section. LIPID PROFILE Routine 08/27/2016 9:50 AM Screening, ischemic R esults for this CASCADE CDT heart disease procedure are in the results section. HIV 1 AND 2 ANTIGEN Routine 08/27/2016 9:50 AM Routine screeni ng Results for this AND ANTIBODY SCREEN CDT for STI (sexually pro cedure are in transmitted the results infection) section. CHLAMYDIA/NEISSERIA Routine 08/27/2016 9:50 AM Routine screeni ng Results for this PCR-URINE CDT for STI (sexually procedure are in transmitted the results infection) section. HPV HIGH RISK DNA Routine 08/27/2016 9:48 AM Pap smear for Res ults for this WITH 16/18 CDT cervical cancer procedure ar e in GENOTYPING screening the results section. PAP (RF MANAGER CYTOLOGY) Routine 08/27/2016 9:48 AM Pap smear for Re sults for this CDT cervical cancer procedure ar e in screening the results section. documented in this encounter Results WET PREP EXAM OP (08/27/2016 10:58 AM CDT) [facility] Method Time Signature CLUE CELLS OP None Seen None Seen 08/27/2016 [facility] 11:01 AM CDT [facility] FP YEAST OP None Seen None Seen 08/27/2016 [facility] 11:01 AM CDT [facility] FP TRICHOMONAS OP None Seen None Seen 08/27/2016 [facility] 11:01 AM CDT [facility] FP WET PREP WBC OP None Seen None Seen 08/27/2016 [facility] 11:01 AM CDT [facility] Specimen Anatomical Collection Method Collection Time Receive d Time (Source) Location / / Volume Laterality Specimen 08/27/2016 10:58 08/27/2016 (specimen) AM CDT 10:58 AM CDT Jacques Alcantara MD URINE ORDERABLE Performing Organization Address City/[facility]/ZIP Code Phon e Number [address] [address] [facility] SYPHILIS ANTIBODY SCREEN, SERUM (08/27/2016 9:50 AM CDT) [facility] Method Time Signature SYPHILIS Nonreactive Nonreactive 08/27/2016 [facility] ANTIBODY 2:22 PM CDT [facility] LAB[facility] Specimen Anatomical Collection Method / Collection Time Recei philipp Time (Source) Location / Volume Laterality Blood Venipuncture / 08/27/2016 9:50 08/27/2016 9:50 Unknown AM CDT AM CDT Jacques Alcantara MD CHEMISTRY ORDERABLE Performing Organization Address City/State/ZIP [facility] Phon e Number [address] [address] [address] HIV 1 AND 2 ANTIGEN AND ANTIBODY SCREEN (08/27/2016 9:50 AM CDT) [facility] [employer] Method Time Signature HIV 1/2 Ag/Ab Non-Reacti Non-Reacti 08/27/2016 [facility] L Screen ve ve 2:51 PM CDT LABORATORY Specimen Anatomical Collection Method / Collection Time Recei philipp Time (Source) Location / Volume Laterality Blood Venipuncture / 08/27/2016 9:50 08/27/2016 9:50 Unknown AM CDT AM CDT Narrative [facility] LABORATORY - 08/27/2016 2 :51 PM CDT A Non-Reactive test result does not excl ude the possibility of exposure to or infection with HIV. ??HIV antibodies may be undetectable in some stages of the infec tion and in some clinical conditions. Jacques Alcantara MD IMMUNOLOGY ORDERABLE Performing Organization Address City/[facility]/ZIP Code Phon e Number [place] [phone] [place] [address] [place] [address] CHLAMYDIA/NEISSERIA PCR-URINE (08/27/2016 9:50 AM CDT) [facility] Method Time Signature CHLAM. AMP. Negative for Negative 08/28/2016 [facility] the presence of 12:[address] [facility] Chlamydia T LABORATORY trachomatis DNA by PCR. NEIS. AMP. Negative for Negative 08/28/2016 [facility] the presence of 12:[address] [facility] Neisseria T LABORATORY gonorrhoeae DNA by PCR. Specimen Anatomical Collection Method Collection Time Receive d Time (Source) Location / / Volume Laterality Urine 08/27/2016 9:50 AM 7 9:50 CDT AM CDT Jacques Alcantara MD MICROBIOLOGY ORDERABLE Performing Organization Address City/State/ZIP Code Phon e Number [place] [address] [facility] [place] [address] [place] [address] HGB A1C (GLYCO HGB) OP (08/27/2016 9:50 AM CDT) P athologist Signature HGBA1C OP 5.5 <=5.6 % 08/27/2016 [facility] 10:05 AM CDT [facility] FP EST AVERAGE 111 <=114 08/27/2016 [facility] GLUCOSE OP mg/dL 10:05 AM CDT [facility] Specimen Anatomical Collection Method / Collection Time Recei philipp Time (Source) Location / Volume Laterality Blood Venipuncture / 08/27/2016 9:50 08/27/2016 9:50 Unknown AM CDT AM CDT Jacques Alcantara MD CHEMISTRY ORDERABLE Performing Organization Address City/State/ZIP Code Phon e Number [facility] [address] [facility] [place] [address] - [facility] - [address] [facility], [place] [address] [facility] FP (ABNORMAL) LIPID PROFILE CASCADE (08/27/2016 9:50 AM CDT) [facility] Method Time Signature SPECIMEN TYPE Fasting 08/27/2016 [facility] 1:28 PM CDT LABORATORY CHOLESTEROL 231 (H) <200 08/27/2016 [facility] mg/dL 1:28 PM CDT LABORATORY TRIGLYCERIDES 147 <150 08/27/2016 [facility] PROFILE mg/dL 1:28 PM CDT LABORATORY LDL CHOL, CALC 155 (H) <100 08/27/2016 [facility] mg/dL 1:28 PM CDT LABORATORY HDL CHOLESTEROL 47 >40 mg/dL 08/27/2016 [facility] L 1:28 PM CDT LABORATORY CHOL/HDL RATIO 4.9 0.0 - 4.9 08/27/2016 [facility] 1:28 PM CDT LABORATORY Specimen Anatomical Collection Method / Collection Time Recei philipp Time (Source) Location / Volume Laterality Blood Venipuncture / 08/27/2016 9:50 08/27/2016 9:50 Unknown AM CDT AM CDT Narrative [facility] LABORATORY - 08/27/2016 1 :28 PM CDT LDL CHOLESTEROL REFERENCE RANGES: (FOR PATIENTS W/O HEART DISEASE) <100 mg/dL = Optimal 100-129 mg/dL = Near/Above Optimal 130-159 mg/dL = Borderline High 160-189 mg/dL = High >/= 190 mg/dL = Very High Jacques Alcantara MD CHEMISTRY ORDERABLE Performing Organization Address City/State/ZIP Code Phon e Number [facility] [address] [facility] [address] LAB[facility]AT[facility] [address] [facility] [address] HPV HIGH RISK DNA WITH 16/18 GENOTYPING (08/27/2016 9:48 AM CDT) Patholo gist Method Time [facility] HPV HIGH RISK Negative for Negative for 08/29/2016 [facility] TYPE 16 HPV type 16. HPV type 16. 1:[address] [facility] LABORATORY HPV HIGH RISK Negative for Negative for 08/29/2016 [facility] TYPE 18 HPV type 18. HPV type 18. 1:[address] [facility] LABORATORY HPV OTHER Negative for Negative for 08/29/2016 [facility] HIGH RISK other high other high 1:[address] [facility] TYPES risk HPV risk HPV LABORATORY types. types. Comment: HPV other high risk types inclu de 31, 33, 35, 39, 45, 51, 52, 56, 58, 59, 66, and 68. Specimen (Source) Anatomical Collection Method Collection Time Re ceived Time Location / / Volume Laterality Vaginal and 08/27/2016 9:48 08/27/2016 9 :48 cervical AM CDT AM CDT cytologic material (specimen) Jacques Alcantara MD MICROBIOLOGY ORDERABLE Performing Organization Address City/State/ZIP Code Phon e Number [facility] [address] [facility] [place] [address] LABORATORY [facility] [address] [place], [place] [address] PAP TEST (RF MANAGER CYTOLOGY) (08/27/2016 9:48 AM CDT) Component Value Ref Test Analysis Performed [facility] Method Time At [facility] Case Report Pap Smear ? Case: [id number] ? 09/05/2016 [facility] Authorizing Provider: ??Jacques Butcher MD ? Collected: ? 08/27/2016 09:48 AM ? 11:[address] [facility] Ordering Location: ? [facility] - ?Received: ?08/27/2016 09:48 AM ? CDT LABORAT [place] ? [place] ? First Screen: ? Gavin Smith. ? Specimen: ?Cervical Thin Prep with HPV Test Machine Spreader Screening, Cervix ? Interpretation Negative for 09/05/2016 KIMO Salas lectronically intraepithelial 11:[address] [facility] sign ed by Gavin reed or CDT LABORATORY Nancy garcia on malignant cells. 08/10 at 11:49 AM Specimen Satisfactory for 09/05/2016 [facility] Adequacy evaluation. 11:[address] [facility] Endocervical/trans CDT LABORATORY formation zone component present. LMP s/p hysterectomy 09/05/2016 [facility] 11:[address] [facility] CDT LABORATORY Pap Disclaimer This specimen was screened b y the ThinPrep Imaging System prior to manual review by a marketing coordinator and/or pathologist. 09/05/2016 [facility] 11:[address] [facility] The Pap test is a screening test and has an irreducible false-negative rate. Routine periodic testing and follow-up of unexplained clinical signs and symptoms are important to minimize the consequence of false-negative Pap tests. CDT LABORATORY Elenita et al. 2012 Updated C [employer] Guidelines for the Management of Abnormal Cervical Cancer Screening Tests and Cancer Precursors. J Low Genit Tract Dis 2013; 17 (5): S2-S27 Specimen (Source) Anatomical Collection Method Collection Time Re ceived Time Location / / Volume Laterality Vaginal and SPECIMEN / Unknown 08/27/2016 9:48 2016 9:48 cervical AM CDT AM CDT cytologic material (specimen) Jacques Alcantara MD PATHOLOGY/CYTOLOGY ORDERABLE Performing Organization Address City/State/ZIP Code Phon e Number [facility] [address] [facility] [place] [address] [phone] LABORATORY [facility] [address] [place] [address] documented in this encounter Visit Diagnoses Diagnosis Annual physical exam - Primary Routine general medical examination at a health care facility Vitamin D deficiency Unspecified vitamin D deficiency Bronchospasm Acute bronchospasm Migraine without status migrainosus, not intractable, unspecified migraine type Bipolar affective disorder in remission (HCC) Elevated fasting blood sugar Impaired fasting glucose Screening, ischemic heart disease Screening for ischemic heart disease Routine screening for STI (sexually liriano smitted infection) Screening examination for venereal disea se Pap smear for cervical cancer screening Screening for malignant neoplasm of the cervix documented in this encounter Care Teams Bull Ladle Tender Relationship Specialty Start Date End Date Jacques Alcantara MD PCP - General Family Medicine 12/15/12 [facility] [place], PCP - Primary Care Clinic 3 [facility] documented as of this encounter
--- OUTSIDE RECORDS SUMMARY | 2022-01-24 09:46 | XMS_ITS | Encounter Summary ---
:1975 Author Organization [facility] Address [address] [place] [address] Care Team Providers Name Role Phone Jacques Alcantara MD Primary Care Provider Unavailable [facility] Unavailable Unavailable Reason for Visit Reason Comments Post op check itchy and red nailbeds follo wing removal Encounter Details Date Type Department Care Team Description 07/16/2016 Office Visit [facility] Luis Armendariz To e infection (Primary Dx); Clinic - [place] DPM Pain in toes of both feet; [address] Post op infection [place], [place] [address] [phone] [place], [place] [id number] (Wo rk) Social History Tobacco Use Types [...] Sign Reading Time Taken Comments Blood Pressure 110/68 07/16/2016 10:22 AM FEEDER ASSOCIATE Pulse 72 07/16/2016 10:22 AM FEEDER ASSOCIATE Temperature 36.4 ??C (97.6 ??F) 07/16/2016 10:22 AM FEEDER ASSOCIATE Respiratory Rate 20 07/16/2016 10:22 AM FEEDER ASSOCIATE Oxygen Saturation - - Inhaled Oxygen Concentration - - Weight - - Height - - Body Mass Index - - documented in this encounter Progress Notes Luis Armendariz DPM - 07/16/2016 10:10 AM CST Podiatric Medicine and Surgery Clinic Note Chief Complaint: Follow up s/p permanent nail avulsions to hallux and second toenails, bilateral SUBJECTIVE: Maria Del Rosario Servin is a 41 y.o. female presents for follow up 5 weeks 1 day s/p permanent nail avulsions to hallux and second toenails, bilateral. Doing well, but is concerned about a little smell and some redness/pain to the area, mainly right foot. Has been using dry bandaid. No new complaints. REVIEW OF SYSTEMS A comprehensive review of [...] hallux and 2nd toe nailbeds. There is mild erythema to theright 2nd digits with some malodor. No kei purulence. No edema. Musculoskeletal: Mild pain with palpation to affected toes. Normal ROM of the ankle joint and subtalar joint. 1st MTPJ ROM and lesser digits normal ROM. Normal medial arch height. Assessment: Toe infection - Plan: amoxicillin/clavulanate (AUGMENTIN) 875-125 mg oral tablet Pain in toes of both feet - Plan: amoxicillin/clavulanate (AUGMENTIN) 875-125 mg oral tablet Post op infection Plan: - Examined and evaluated patient, she is doing well. - The patient may continue to soak the area twice daily. A shower can count as a soak. - Applied betadine to each affected toe this date, wiped away some fibrotic sloughing with gauze andapplied band aid to hallux and 2nd toes, bilateral. - Informed patient she can begin using betadine and a dry Band-Aid over the area for the next 2-3 weeks. She can continue white vinegar soaks and leave open to air while sitting at night, however she is to cover before bed. - Due to erythema and malodor, prescription for Augmentin was sent patient's pharmacy. She was instructed to take the full course and contact us if this does not improve. - They were informed of the next couple of weeks or sooner should begin to dry out and she can discontinue local wound care at that [...] any questions or concerns. Luis Armendariz DPM [facility] 07/16/2016 10:52 AM This document was created using voice recognition software and effort was taken in order to review for accuracy, though some inadvertent typographical errors may be present. ER ASSOCIATE documented in this encounter Plan of Treatment Not on filedocumented as of this encounter Visit Diagnoses Diagnosis Toe infection - Primary Unspecified local infection of skin and subcutaneous tissue Pain in toes of both feet Post op infection Other postoperative infection documented in this encounter Care Teams Benzene Worker Relationship Specialty Start Date End Date Jacques Alcantara MD PCP - General Family Medicine 12/15/12 [facility], PCP - Primary Care Clinic 3 09/16/17 [facility] documented as of this encounter
--- OUTSIDE RECORDS SUMMARY | 2022-01-24 09:46 | XMS_ITS | Encounter Summary ---
:1975 Author Organization [facility] Address [address] [place] [address] Care Team Providers Name Role Phone Jacques Alcantara MD Primary Care Provider Unavailable [facility] Ph Unavailable Unavailable Reason for Referral (Routine) - Closed Specialty Diagnoses / Procedures Referred By Contact Refer red To Contact Diagnoses Pre-op exam Kiel Jackson PA-C Procedures BASIC METAB PROFILE [address] [place], [place] [address] Referral ID Status Reason Start Date Expiration Date Visits Requ ested Visits Authorized [id number] Closed 06/09/2016 12/06/2016 1 1 TEAM TRUCK DRIVER Reason for Visit Reason Comments Pre Op exam bilateral nail removal on to es 06/10/16 Dr Armendariz Encounter Details Date Type Department Care Team Description 06/09/2016 Office Visit [facility] Kiel Jackson Pre- op exam (Primary Clinic - [facility] SONYA Webber Dx) [address] [place] [address] [address] [place], [place] [address] [place] [address] [phone] Social History Tobacco Use Types Packs/Day Years [...] Sign Reading Time Taken Comments Blood Pressure 104/74 06/09/2016 10:05 AM CDL TEAM TRUCK DRIVER Pulse 68 06/09/2016 10:05 AM CDL TEAM TRUCK DRIVER Temperature 36.6 ??C (97.9 ??F) 06/09/2016 10:05 AM CDL TEAM TRUCK DRIVER Respiratory Rate 16 06/09/2016 10:05 AM CDL TEAM TRUCK DRIVER Oxygen Saturation 95% 06/09/2016 10:05 AM CDL TEAM TRUCK DRIVER Inhaled Oxygen Concentration - - Weight 99.7 kg (219 lb 11.2 oz) 06/09/2016 10:05 AM CDL TEAM TRUCK DRIVER Height 154.9 cm (5' 1) 06/09/2016 10:05 AM CDL TEAM TRUCK DRIVER Body Mass Index 41.51 06/09/2016 10:05 AM CDL TEAM TRUCK DRIVER documented in this encounter Progress Notes Kiel Jackson PA-C - 06/09/2016 3:30 PM CST Results noted. No contraindication for surgery. TEAM TRUCK DRIVER Kiel Jackson PA-C - 06/09/2016 11:56 AM CST Results noted. Will be uploaded in preop. TEAM TRUCK DRIVER Kiel Jackson PA-C - 06/09/2016 10:00 AM CST Preoperative History and Physical Examination Date of Examination: 06/09/2016 Proposed Surgery: Bilateral Toe Nail Removal of the Great toe and 2nd Toe bilaterally Surgeon: Dr. Armendariz Date of Surgery: 06/10/2016 Location of Surgery: [facility] presents today for a pre-operative evaluation for the above- mentioned procedure. She is otherwise in her usual state of health. Chief Complaint/Indication for Surgery: The patient has had ingrown toenails, been seen by Dr. Ibrahim with podiatry. I determined that one also be removed. HPI/Previous Diagnostic and Therapeutic Evaluation: First and second toenails on both feet have beeningrown. Patient has been seen by podiatry, and is determined tissue be removed due to the exhaustion of all conservative measures. Past Medical History: Past Medical History Diagnosis Date ??? Asthma mild intermittant/ more inWinter ??? Bipolar disorder ([facility]) [facility] ??? Chronic mental illness 1990 ??? Depression with anxiety ??? Heartburn ??? Insomnia trazadone tx works well ??? Lumbar vertebral fracture (HCC) 1987 L4 or L5 ??? RLS (restless legs syndrome) 2003 requip works well hs Past Surgical History: Past Surgical History Procedure Laterality Date ??? Hb tubal ligation addl 2000 ??? Hx section 1997,2000 ??? Hx partial hysterectomy 2003 ??? Hx hysterectomy ??? Hx foot surgery 2013 ??? Lumbar spine fusion,anter saud* Bilateral 08/2015 Medications: Current Outpatient Prescriptions: albuterol HFA 90mcg/puff (PROAIR HFA) 90 mcg/actuation Inhl 2 Puffs by Inhalation route every 4 (four) hours as needed. Cholecalciferol, Vitamin D3, (VITAMIN D3) 2,000 unit oral capsule Take 2,000 Units by mouth once daily. dextroamphetamine-amphetamine (ADDERALL XR) 10 mg Oral 24hr SR caps Take by mouth Twice a Day. Diaper,Brief, Adult,Disposable (DEPEND UNDERWEAR L-XL) 1 Each by [facility].(Non-Drug; Combo Route) route three times a day. DIAZEPAM ORAL Take by mouth. gabapentin (NEURONTIN) 300 mg oral capsule Decrease one capsule daily until reaches 3 caps BID. 6 total caps per day. ibuprofen (MOTRIN) 800 mg Oral Tab Take 1 Tab by mouth every 8 (eight) hours as needed. methocarbamol (ROBAXIN) 500 mg oral Tab Take 2 tablets by mouth four times a day. omeprazole (PRILOSEC) 20 mg Oral CpDR Take 1 capsule by mouth Once Daily. oxyCODONE-acetaminophen (PERCOCET) 10-325 mg oral Tab Take 1-2 Tabs by mouth every 6 (six) hours as needed (pain). rOPINIRole (REQUIP) 3 mg Oral Tab Take 1 Tab by mouth Once Daily. senna (SENNA) 8.6 mg oral Tab Take 1-2 tablets by mouth Once Daily. sodium chloride 0.65% (SALINE NASAL MIST) 0.65 % Nasal [place] SprA Instill 1-2 Sprays into EACH nare every 1 (one) hour as needed. topiramate (TOPAMAX) 25 mg oral tablet Take 4 tablets (100 mg) by mouth at bedtime. traZODone (DESYREL) 100 mg Oral Tab Take 300 mg by mouth at bedtime. triamterene-hydrochlorothiazide 37.5 MG-25 MG (DYAZIDE) 37.5-25 mg oral Cap VITAMIN D2 50,000 unit oral Cap ziprasidone hcl (GEODON) 40 mg oral Cap Takes 40 mg in the morning and 60 mg at bedtime. Allergies: No Known Allergies Personal/Family History of Anesthetic Reaction? NO Personal/Family History of Easy Bruising/Bleeding Disorder/DVT? NO Personal History of Snoring/Sleep Apnea? NO Current Aspirin/steroid Use? NO Immunizations Up to Date? YES Other Significant Family History: Family History Problem Relation Age of Onset ??? Autism Son ??? Colon Cancer Maternal Grandmother ??? Diabetes Mother ??? Drug Abuse Sister ??? Depression Sister ??? Mental Illness Sister ??? Cancer Sister stomach ??? Other Disease Son hereditary microspirtosis ??? Negative Hx Father unknown Tobacco Use: History Smoking Status ??? Current Every Day Smoker ??? Packs/day: 0.50 ??? Years: 19.00 ??? Types: Cigarettes Smokeless Tobacco ??? Never Used Comment: started chantix Alcohol Use: History Alcohol Use ??? 0.6 oz/week ??? 1 Cans of beer, 0 Standard drinks or equivalent per week Comment: once a year Caffeine Use: 1-2 LMP: No LMP recorded (lmp unknown). Patient has had a hysterectomy. Review of Systems completed and is notable for ingrown toenails, pain.. All other Systems are negative. Examination: BP 104/74 (BP Cuff Site: Right arm, BP Cuff Position: Sitting, BP Cuff Size: Large adult) Pulse 68 Temp 97.9 ??F (36.6 ??C) (Oral) Resp 16 Ht 1.549 m (5' 1) Wt 99.7 kg (219 lb 11.2 oz) LMP (LMP Unknown) SpO2 95% ? No BMI 41.51 kg/m2 General Appearance:NAD HEENT: Head - normocephalic, atraumatic Eyes - normal lids and conjuntivae, PERRLA, EOMs intact Ears - external canals normal, internal canals normal, TM's normal Oropharynx - Oral mucosa and pharnyx normal, moist mucous membranes NECK: supple, tracheal midline, no tracheal deviation, no crepitus, no palpable lymphadenopathy, no masses, no thyromegaly, Carotids: no bruits RESPIRATORY: lungs clear to auscultation and percussion, normal diaphramatic movement, chest symmetrical CARDIOVASCULAR: normal S1, normal S2, regular rhythm GASTROINTESTINAL: soft, non-tender, round, flat, no hepatosplenomegaly or palpable masses HEME/LYMPH/IMMUNOLOGIC: no palpable lymphadenopathy, no unusual bleeding or bruising MUSCULOSKELETAL: without deformity SKIN: intact, warm, dry NEUROLOGIC: alert and oriented, moves all extremities, cranial nerves 2-12 normal EXTREMITIES: no deformities or ulcerations Pelvic: per recent exam Labs/Tests ordered today: Results for MARIA DEL ROSARIO ENCARNACION ( ) as of 06/09/2016 13:15 Ref. Range 06/09/2016 10:30 SODIUM Latest Ref Range: 136 - 145 mMol/L 139 POTASSIUM Latest Ref Range: 3.5 - 5.1 mMol/L 3.8 CHLORIDE Latest Ref Range: 98 - 112 mMol/L 108 CARBON DIOXIDE Latest Ref Range: 21 - 32 mMol/L 23 ANION GAP Latest Ref Range: 0.0 - 15.0 mMol/L 8.0 GLUCOSE Latest Ref Range: 74 - 106 mg/dL 98 BUN (UREA NITRO) Latest Ref Range: 7 - 24 mg/dL 8 CREATININE Latest Ref Range: 0.55 - 1.02 mg/dL 0.86 EST GFR (MDRD) Latest Ref Range: >60 mL/min >60 EST GFR IF AM Latest Ref Range: >60 mL/min >60 CALCIUM, SERUM Latest Ref Range: 8.5 - 10.1 mg/dL 8.6 WBC OP Latest Ref Range: 4.3 - 10.8 K/uL 5.2 RBC OP Latest Ref Range: 4.20 - 5.40 M/uL 4.38 HEMOGLOBIN OP Latest Ref Range: 12.0 - 16.0 gm/dL 14.2 HEMATOCRIT OP Latest Ref Range: 36.0 - 48.0 % 41.8 MCH OP Latest Ref Range: 27.0 - 33.0 pg 32.4 MCHC OP Latest Ref Range: 33.0 - 36.0 gm/dL 34.0 MCV OP Latest Ref Range: 80 - 100 fl 95 MPV OP Latest Ref Range: 6.5 - 12.0 10.1 RDW OP Latest Ref Range: 11.5 - 14.5 % 12.2 PLATELET COUNT OP Latest Ref Range: 150 - 400 K/uL 215 12-lead EKG: NO Interpretation: NSR no acute changes Recommendations/Plan: 1) Preoperative Clearance - It is safe to proceed with the proposed surgery. Further tests are not advised to further risk stratify Maria Del Rosario Encarnacion prior to surgery. 2) Patient was advised to D/C all NSAID's and ASA derivatives one week prior to surgery and that these may be resumed post-operatively unless instructed otherwise. Thank you for allowing me to participate in the pre operative consultation of this patient. Sincerely, Kiel Jackson PA-C TEAM TRUCK DRIVER documented in this encounter Plan of Treatment Not on filedocumented as of this encounter Procedures Procedure Name Priority Date/Time Associated Diagnosis Comme nts CBC Routine 06/09/2016 10:30 AM Pre-op exam Results for this (HGB,HCT,WBC,RBC,PL CDL TEAM TRUCK DRIVER procedur e are in ATELET) OP the results section. BASIC METAB PROFILE Routine 06/09/2016 10:30 AM Pre-op exam R esults for this CDL TEAM TRUCK DRIVER procedure are i n the results section. documented in this encounter Results BASIC METAB PROFILE (06/09/2016 10:30 AM CDL TEAM TRUCK DRIVER) P athologist Signature SODIUM 139 136 - 145 06/09/[address] [facility] mMol/L 12:57 PM CDL TEAM TRUCK DRIVER LABORATORY POTASSIUM 3.8 3.5 - 5.1 06/09/2016 [facility] mMol/L 12:57 PM CDL TEAM TRUCK DRIVER LABORATORY CHLORIDE 108 98 - 112 06/09/[address] [facility] mMol/L 12:57 PM CDL TEAM TRUCK DRIVER LABORATORY CARBON DIOXIDE 23 21 - 32 06/09/[address] [facility] mMol/L 12:57 PM CDL TEAM TRUCK DRIVER LABORATORY BUN (UREA 8 7 - 24 06/09/[address] [facility] NITRO) mg/dL 12:57 PM CDL TEAM TRUCK DRIVER LABORATORY CREATININE 0.86 0.55 - 06/09/[address] [facility] 1.02 mg/dL 12:57 PM CDL TEAM TRUCK DRIVER LABORATORY EST GFR >60 >60 mL/min 06/09/2016 [facility] (CKD-EPI) 12:57 PM CDL TEAM TRUCK DRIVER LABORATORY EST GFR IF >60 >60 mL/min 06/09/2016 [facility] AM 12:57 PM CDL TEAM TRUCK DRIVER LABORATORY GLUCOSE 98 74 - 106 06/09/2016 [facility] mg/dL 12:57 PM CDL TEAM TRUCK DRIVER LABORATORY CALCIUM, SERUM 8.6 8.5 - 10.1 06/09/2016 [facility] 12:57 PM CDL TEAM TRUCK DRIVER LABORATORY ANION GAP 8.0 0.0 - 15.0 06/09/2016 [facility] mMol/L 12:57 PM CDL TEAM TRUCK DRIVER LABORATORY Specimen Anatomical Collection Method / Collection Time Recei philipp Time (Source) Location / Volume Laterality Blood Venipuncture / 06/09/2016 10:30 7 Unknown AM CDL TEAM TRUCK DRIVER 10:30 AM CDL TEAM TRUCK DRIVER Kiel Jackson PA-C CHEMISTRY ORDERABLE Performing Organization Address City/State/ZIP Code Phon e Number [facility] [address] [place] [address] [phone] LABORATORY [facility] [address] [place], [place] [address] CBC (HGB,HCT,WBC,RBC,PLATELET) OP (06/09/2016 10:30 AM CDL TEAM TRUCK DRIVER) P athologist Signature WBC OP 5.2 4.3 - 10.8 06/09/2016 [facility] K/uL 10:47 AM [facility] RBC OP 4.38 4.20 - 06/09/2016 [facility] 5.40 M/uL 10:47 AM [facility] HEMOGLOBIN OP 14.2 12.0 - 06/09/2016 [facility] 16.0 gm/dL 10:47 AM [facility] HEMATOCRIT OP 41.8 36.0 - 06/09/2016 [facility] 48.0 % 10:47 AM [facility] MCV OP 95 80 - 100 06/09/2016 [facility] fl 10:47 AM [facility] MCH OP 32.4 27.0 - 06/09/2016 [facility] 33.0 pg 10:47 AM [facility] MCHC OP 34.0 33.0 - 06/09/2016 [facility] 36.0 gm/dL 10:47 AM CDL TEAM TRUCK DRIVER [facility] RDW OP 12.2 11.5 - 06/09/2016 [facility] 14.5 % 10:47 AM CDL TEAM TRUCK DRIVER [facility] PLATELET COUNT 215 150 - 400 06/09/[address] [facility] OP K/uL 10:47 AM CDL TEAM TRUCK DRIVER [facility] MPV OP 10.1 6.5 - 12.0 06/09/[address] [facility] 10:47 AM CDL TEAM TRUCK DRIVER [facility] Specimen Anatomical Collection Method / Collection Time Recei philipp Time (Source) Location / Volume Laterality Blood Venipuncture / 06/09/2016 10:30 7 Unknown AM CDL TEAM TRUCK DRIVER 10:30 AM CDL TEAM TRUCK DRIVER Kiel Jackson PA-C HEMATOLOGY ORDERABLE Performing Organization Address City/State/ZIP Code Phon e Number [address] [facility] [id number] [facility] - [address] [place] [address] [place] [address] [facility] documented in this encounter Visit Diagnoses Diagnosis Pre-op exam - Primary Preoperative examination, unspecified documented in this encounter Care Teams Industrial Cafeteria Manager Relationship Specialty Start Date End Date Jacques Alcantara MD PCP - General Family Medicine 12/15/12 [facility], PCP - Primary Care Clinic 3 09/16/17 [facility] Family [facility]y documented as of this encounter
--- OUTSIDE RECORDS SUMMARY | 2022-01-24 09:46 | XMS_ITS | Encounter Summary ---
:1975 Author Organization [facility] Address [address] [place] [address] Care Team Providers Name Role Phone Jacques Alcantara MD Primary Care Provider Unavailable [facility] Family Phy Unavailable Unavailable Reason for Visit Reason Comments Vomiting intermittently x 2 months. Nausea Encounter Details Date Type Department Care Team Description 04/07/2017 Office Visit [facility] Jacques Alcantara Ny story of tobacco Clinic - [facility] abuse (Primary Dx) [address] [place] [address] Social History Tobacco Use Types Packs/Day Years [...] Sign Reading Time Taken Comments Blood Pressure 122/76 04/07/2017 10:46 AM ROOF CEMENT AND PAINT MAKER Pulse 82 04/07/2017 10:46 AM ROOF CEMENT AND PAINT MAKER Temperature 37.1 ??C (98.7 ??F) 04/07/2017 10:46 AM ROOF CEMENT AND PAINT MAKER Respiratory Rate 16 04/07/2017 10:46 AM ROOF CEMENT AND PAINT MAKER Oxygen Saturation - - Inhaled Oxygen Concentration - - Weight 94.5 kg (208 lb 6.4 oz) 04/07/2017 10:46 AM ROOF CEMENT AND PAINT MAKER Height 157.5 cm (5' 2) 04/07/2017 10:46 AM ROOF CEMENT AND PAINT MAKER Body Mass Index 38.12 04/07/2017 10:46 AM ROOF CEMENT AND PAINT MAKER documented in this encounter Progress Notes Jacques Alcantara MD - 04/07/2017 10:45 AM CST SUBJECTIVE: 41 y.o. female for the following health concerns. History of tobacco abuse - patient states that the Chantix is been successful at helping her quit smoking and she is 4 weeks smoke free. However since starting the medication she continues to have bouts of nausea including vomiting. Current Outpatient Prescriptions Medication Sig Dispense Refill [...] Adult,Disposable (DEPEND UNDERWEAR L-XL) 1 Each by [facility]Non- Drug; Combo Route) route three times a [...] 0.65% (SALINE NASAL MIST) 0.65 % Nasal [place] SprA Instill 1- 2 Sprays into EACH [...] Patient has had a hysterectomy. ROS: Feeling concerned. Respiratory symptoms none No dyspnea or chest pain on exertion. No abdominal pain, change in bowel habits. Nausea and vomiting as above. No urinary tract symptoms. OBJECTIVE: The patient appears well, in NAD. BP 122/76 (BP Cuff Site: Right arm, BP Cuff Position: Sitting, BP Cuff Size: Large adult) Pulse 82 Temp 98.7 ??F (37.1 ??C) (Oral) Resp 16 Ht 1.575 m (5' 2) Wt 94.5 kg (208 lb 6.4 oz) LMP (LMP Unknown) ? No BMI 38.12 kg/m?? ISAC. No edema. Abdomen soft without tenderness, guarding, mass or organomegaly. Normoactive bowel sounds. ASSESSMENT/PLAN: History of tobacco abuse - reviewed with patient that if she is able to stick it out one more month we should be able to stack the Chantix and hopefully remain successfully smoke free. I did encourage her to take the medication with food as she has been and this has minimized her nausea side effect infact the last few days Pt to return if sx worsen or fail to improve, sooner as needed. Options for treatment and follow-up care were reviewed with the patient and/or guardian. Maria Del Rosario Veliz Hastings and/or guardian engaged in the decision making process and verbalized understanding of the optionsdiscussed and agreed with the final plan. CEMENT AND PAINT MAKER documented in this encounter Plan of Treatment Not on filedocumented as of this encounter Visit Diagnoses Diagnosis History of tobacco abuse - Primary Personal history of tobacco use, present ing hazards to health documented in this encounter Care Teams Financial Compliance Examiner Relationship Specialty Start Date End Date Jacques Alcantara MD PCP - General Family Medicine 12/15/12 [facility], PCP - Primary Care Clinic 3 09/16/17 [facility] documented as of this encounter
--- OUTSIDE RECORDS SUMMARY | 2022-01-24 09:46 | XMS_ITS | Encounter Summary ---
:1975 Author Organization [facility] Address [address] [place] [id number] Care Team Providers Name Role Phone Jacques Alcantara MD Primary Care Provider Unavailable [facility] Unavailable Unavailable Reason for Visit Reason Comments Flu symptoms vomiting, loose stools and c an not keep anyting down. she did have a flu shot Encounter Details Date Type Department Care Team Description 03/09/2017 Office Visit [facility] Mary Francois Viral meron roenteritis [facility] - SONYA Benavides (Primary Dx) [address] [id number] [phone] Social History Tobacco Use Types Packs/Day Years [...] Sign Reading Time Taken Comments Blood Pressure 124/72 03/09/2017 10:24 AM CDT Pulse 83 03/09/2017 10:24 AM CDT Temperature 36.9 ??C (98.4 ??F) 03/09/2017 10:24 AM CDT Respiratory Rate 16 03/09/2017 10:24 AM CDT Oxygen Saturation 98% 03/09/2017 10:24 AM CDT Inhaled Oxygen Concentration - - Weight 93.4 kg (206 lb) 03/09/2017 10:24 AM CDT Height 157.5 cm (5' 2) 03/09/2017 10:24 AM CDT Body Mass Index 37.68 03/09/2017 10:24 AM CDT documented in this encounter Progress Notes Mary Francois PA-C - 03/09/2017 10:30 AM CDT SUBJECTIVE: Maria Del Rosario Servin is a 41 y.o. female who complains of GI flu symptoms for a week now. Symptoms include nasuea with vomiting (last bout of vomiting last evening and improving), diarrhea which began last night (going 2-3x daily), cramping and mild, diffuse abdominal pain. Denies blood in vomitus or black/bloody stools. No fever/chills. No recent travel or new foods. No recent antibiotic use. Unsure cause of symptoms. She has been drinking fluids and sticking to blank foods- soup/chicken broth and toast. Hasn't triedanything over the counter. Feels better with laying down. S/o with similar symptoms currently. Patient has no history of chronic abdominal issues. Denies feeling weak or dehydrated. Overall feels she is improving. No LMP recorded (lmp unknown). Patient has had a hysterectomy. Current Outpatient Prescriptions: acetaminophen (TYLENOL) 500 mg oral tablet Take 1 tablet (500 mg) by mouth every 4 (four) hours as needed. albuterol HFA (PROAIR HFA) 90 mcg/actuation Inhl inhaler Inhale 2 puffs every 4 (four) hours as needed. cetirizine (ZYRTEC) 10 mg oral tablet Take 10 mg by mouth once daily. Diaper,Brief, Adult,Disposable (DEPEND UNDERWEAR L-XL) 1 Each by [facility].(Non-Drug; Combo Route) route three times a day. diazePAM (VALIUM) 10 mg oral tablet Take 1 tablet (10 mg) by mouth twice a day as needed. fluticasone (FLONASE) 50 mcg/actuation nasal spray Instill 2 sprays into EACH nare once daily. gabapentin (NEURONTIN) 300 mg oral capsule Decrease one capsule daily until reaches 3 caps BID. 6 total caps per day. ibuprofen (MOTRIN) 800 mg Oral Tab Take 1 Tab by mouth every 8 (eight) hours as needed. methocarbamol (ROBAXIN) 500 mg oral Tab Take 2 tablets by mouth four times a day. omeprazole (PRILOSEC) 20 mg oral delayed release capsule Take 20 mg by mouth once daily before a meal. oxyCODONE-acetaminophen (PERCOCET) 10-325 mg oral Tab Take 1-2 Tabs by mouth every 6 (six) hours as needed (pain). rOPINIRole (REQUIP) 3 mg oral Tab Take 1 tablet (3 mg) by mouth once daily. sodium chloride 0.65% (SALINE NASAL MIST) 0.65 % Nasal [place] SprA Instill 1-2 Sprays into EACH nare every 1 (one) hour as needed. topiramate (TOPAMAX) 100 mg oral tablet Take 1 tablet (100 mg) by mouth once daily. traZODone (DESYREL) 300 mg oral tablet Take 1 tablet (300 mg) by mouth at bedtime as needed. triamterene-hydrochlorothiazide (DYAZIDE) 37.5-25 mg oral capsule Take 1 capsule by mouth every morning. varenicline (CHANTIX) 1 mg oral tablet Take 1 mg by mouth 2 times daily with meals. ziprasidone hcl (GEODON) 60 mg oral capsule Take 1 capsule (60 mg) by mouth at bedtime. (Patient taking differently: Take 60 mg by mouth Twice a Day. ) No Known Allergies Patient Active Problem List Diagnosis ??? Fatigue ??? Obesity ??? Snores ??? Multiple allergies ??? Depression with anxiety ??? Bipolar disorder (HCC) ??? RLS (restless legs syndrome) ??? Insomnia ??? Tobacco abuse ??? History of vertebral fracture ??? Metabolic syndrome Past Medical History: Diagnosis Date ??? Asthma mild intermittant/ more inWinter ??? Bipolar disorder (HCC) 1999 [facility] ??? Chronic mental illness 1990 ??? Depression with anxiety ??? Heartburn ??? Insomnia trazadone tx works well ??? Lumbar vertebral fracture (HCC) 1988 L4 or L5 ??? RLS (restless legs syndrome) 2004 requip works well hs Social History Substance Use Topics ??? Smoking status: Current Every Day Smoker Packs/day: 0.00 Years: 19.00 Types: Cigarettes ??? Smokeless tobacco: Never Used Comment: started chantix- 9 cigarettes daily ??? Alcohol use 0.6 oz/week 1 Cans of beer per week Comment: once a year Family History Problem Relation Age of Onset ??? Negative Hx Father unknown ??? Diabetes Mother ??? Autism Son ??? Colon Cancer Maternal Grandmother ??? Drug Abuse Sister ??? Depression Sister ??? Mental Illness Sister ??? Cancer Sister stomach ??? Other Disease Son hereditary microspirtosis ROS: See HPI and below; otherwise negative. CONSTITUTIONAL: Denies recent weight change, fever, chills, night sweats, or decreased appetite. HEENT: Denies vision changes, eye pain, hearing changes, or ear pain. No nose/sinus problems. No sore throat of difficulty swallowing. CV: Denies chest pain, palpitations, BISWAS, PND, orthopnea, pedal edema, or claudication. RESPIRATORY: Denies cough, shortness of breath, wheezing, hemoptysis, or dyspnea. GASTROINTESTINAL: See HPI. GENITOURINARY: Denies frequency, urgency, dysuria, hematuria, incontinence, or incomplete emptying. Denies vaginal discharge, odors, spotting, or irritation. No STD concerns. ENDOCRINOLOGY: Denies heat or cold intolerances. No fatigue. SKIN: Denies jaundice, itching, or rashes. NEUROLOGIC: Denies headache, seizure, numbness, tingling, or other sensory changes. MUSCULOSKELETAL: Denies joint stiffness or swelling. No weakness of muscles or joints. Denies musclepain or cramps. Denies back pain or difficulty walking. OBJECTIVE: BP 124/72 (BP Cuff Site: Left arm, BP Cuff Position: Sitting, BP Cuff Size: Large adult) Pulse 83 Temp 98.4 ??F (36.9 ??C) (Oral) Resp 16 Ht 1.575 m (5' 2) Wt 93.4 kg (206 lb) LMP (LMP Unknown) SpO2 98% BMI 37.68 kg/m?? Nursing notes and vital signs reviewed. General appearance: Exam reveals a 41 y.o. female who appears alert, WDWN, and in NAD. Pleasant and cooperative. Skin: Warm and dry without rashes or jaundice. HEENT: Head is normocephalic/atraumatic. PERRL. Lids and sclera normal. EAC's clear. TM's pearly mcmahon bilaterally. Nares patent. Oropharynx mucosa appears moist and pink. Neck: Supple. No cervical lymphadenopathy. Respiratory: Lungs clear to ausculation bilaterally. No rhonchi, wheezes, or rales. No accessory muscle use or retraction. Cardiovascular: RRR. Normal S1 and S2. No murmurs rubs, or gallops. Gastrointestinal: Appears flat with positive bowel sounds. Soft and non tender. Non distended. No organomegaly or masses. No rebound or guarding. No CVA tenderness. Extremities: Without cyanosis or edema. Capillary refill less than 1 second. Distal pulses intact. Musculoskeletal: Gross motor intact. Patient able to ambulate normally. ASSESSMENT/PLAN: 1. Viral gastroenteritis Slowly improving per patient. S/o with similar symptoms. Most likely viral cause. Recommend clear liquids and bland foods and slowly advancing to normal diet. Acetaminophen and or ibuprofen for fever and/or pain control. Pepto Bismol also may be helpful. Return to clinic if intractable nausea/vomitingor symptoms persist longer than 4 days. Follow-Up to ER if severe abdominal pain, signs of dehydration, high fever, or other serious symptoms develop. Patient understand and is amenable with this plan. Mary Francois PA-C documented in this encounter Plan of Treatment Not on filedocumented as of this encounter Visit Diagnoses Diagnosis Viral gastroenteritis - Primary Intestinal infection due to other organi sm, not elsewhere classified documented in this encounter Care Teams Chalk Machine Operator Relationship Specialty Start Date End Date Jacques Alcantara MD PCP - General Family Medicine 12/15/12 [facility], PCP - Primary Care Clinic 3 09/16/17 [facility] documented as of this encounter
--- OUTSIDE RECORDS SUMMARY | 2022-01-24 09:46 | XMS_ITS | Encounter Summary ---
:1975 Author Organization [facility] Address [address] [place] [address] Care Team Providers Name Role Phone Jacques Alcantara MD Primary Care Provider Unavailable [facility] Unavailable Unavailable Reason for Visit Reason Comments Toenail Ingrown toenails, great toes and 2nd toes, bilaterally Encounter Details Date Type Department Care Team Description 04/23/2016 Office Visit [facility] Luis Armendariz, In growing nail (Primary Dx); Clinic - [place] DPM Pain in toes of both feet; [address]; [place], [place] [address] [address] Tinea unguium [phone] [place], [place] [address] (Wo rk) Social History Tobacco Use Types [...] Sign Reading Time Taken Comments Blood Pressure 134/88 04/23/2016 8:40 AM CLINICAL ACCOUNT LIAISON Pulse 88 04/23/2016 8:40 AM CLINICAL ACCOUNT LIAISON Temperature 37.1 ??C (98.7 ??F) 04/23/2016 8:40 AM CLINICAL ACCOUNT LIAISON Respiratory Rate - - Oxygen Saturation - - Inhaled Oxygen Concentration - - Weight - - Height - - Body Mass Index - - documented in this encounter Progress Notes Luis Armendariz, AMNAM - 04/23/2016 8:50 AM CST PROGRESS NOTE SUBJECTIVE Maria Del Rosario is a 40-year-old woman that persist clinic today for evaluation of ingrown toenails. Patient states she was seen yesterday by Dr. Chapa and informed him that she would like to have her first and second toenails on both feet surgically removed as she has tried all conservative treatment options without success and these continue to cause her discomfort. She notices that they are incurvated andinflamed. They are tender to touch. After discussing this with her boyfriend, she would like to waituntil after the new year to have this done, however she would like to have it done at [place]. She has no other concerns or questions and states she understands what this would entail as she has had foot surgery before. Patient denies fever, chills, nausea, vomiting, diarrhea, night sweats, shortness of breath or chest pain. Patient has no other foot or ankle complaints at this time. OBJECTIVE BP 134/88 (BP Cuff Site: Left arm, BP Cuff Position: Sitting, BP Cuff Size: Regular adult) Pulse 88 Temp 98.7 ??F (37.1 ??C) (Oral) GENERAL APPEARANCE: She is awake, [...] oriented, moves all extremities. Non-focal exam. MUSCULOSKELETAL: Muscle mass is equal and symmetric. Muscle strength is 5 out of 5 to all lower extremity muscle groups. No gross structural deformity present EXTREMITIES: No edema or cyanosis. ASSESSMENT onychomycosis with onychocryptosis PLAN - I discussed at length the pathology and etiology of the current condition with the patient. Treatment options were discussed and the patient agrees with our treatment plan. - Discussed both conservative and surgical options for the ingrown toenails. I did discuss topical treatment however patient declined as she has tried this in the past without success. Patient states that she has done everything possible conservatively and continues to struggle with the first and second toe nails on both feet. She wishes to have them excised surgically and permanently. She is requesting have the procedure done specifically at [facility]. As patient would like to wait until after the new year, I will have her follow up in 6 weeks. she agrees with thisplan. She will follow up in 6 weeks to discuss the procedure at greater length and schedule the procedure if she would still like to proceed with this. The patient was instructed to contact the clinic with any questions or concerns prior to their next appointment. Luis Armendariz DPM [facility] 04/23/2016 9:04 AM This document was created using voice recognition software and effort was taken in order to review for accuracy, though some inadvertent typographical errors may be present. ICAL ACCOUNT LIAISON documented in this encounter Plan of Treatment Not on filedocumented as of this encounter Visit Diagnoses Diagnosis Ingrowing nail - Primary Pain in toes of both feet Macronychia Other specified disease of nail Tinea unguium Dermatophytosis of nail documented in this encounter Care Teams Propeller Tester Relationship Specialty Start Date End Date Jacques Alcantara MD PCP - General Family Medicine 12/15/12 [facility], PCP - Primary Care Clinic 3 09/16/17 [facility] documented as of this encounter
--- OUTSIDE RECORDS SUMMARY | 2022-01-24 09:46 | XMS_ITS | Encounter Summary ---
:1975 Author Organization [facility] Address [address] [place] [address] Care Team Providers Name Role Phone Jacques Alcantara MD Primary Care Provider Unavailable [facility] Unavailable Unavailable Reason for Visit Reason Comments Upper Extremity Issue Encounter Details Date Type Department Care Team Description 02/12/2017 Emergency [facility] Luly Cottrell MD Hospital Emergency [address] [facility] Department [address] [place] [address] [place], [place] [address] [phone] Social History Tobacco Use Types Packs/Day Years [...] documented as of this encounter Discharge Instructions Discharge InstructionsChsandra Cottrell MD - 02/12/2017 10:05 AM CDT Return without fail if worsening or if any other concerning symptoms develop. AttachmentsThe following attachments cannot be sent through Care Everywhere. CONTUSION (ALBANIAN)documented in this encounter Medications at Time of [...] 1 Tab by mouth 120 Tab 2 12/11/201409/17/2017 mg Oral Tab every 8 (eight) hours [...] MIST) 0.65 into EACH nare % Nasal [place] every 1 (one) hour SprAIndications: Sinus as [...] documented as of this encounter ED Notes Joey Cottrell MD - 02/12/2017 10:00 AM CDT CHIEF COMPLAINT: Upper extremity issue HPI: Initial history obtained at 10:00 AM 02/12/17. History provided by the patient. Maria Del Rosario Servin is a 41 y.o. female who presents to the emergency department for evaluation of upper extremity issue. The patient states her right thumb was slammed in a car door last night. She has feltgradually worsening pain to her right thumb since the incident and has developed a mild amount of swelling and bruising over the dorsal aspect of the thumb. Her pain is noted to worsen with movement ofthe affected digit, though she denies any numbness or tingling at this time. There was no involvement of her finger nail nor any of the remaining fingers on the right. No further concerns or complaintsare voiced. MEDICATIONS: acetaminophen (TYLENOL) 500 mg oral tablet albuterol HFA (PROAIR HFA) 90 mcg/actuation Inhl inhaler cetirizine (ZYRTEC) 10 mg oral tablet Diaper,Brief, Adult,Disposable (DEPEND UNDERWEAR L-XL) diazePAM (VALIUM) 10 mg oral tablet fluticasone (FLONASE) 50 mcg/actuation nasal spray gabapentin (NEURONTIN) 300 mg oral capsule ibuprofen (MOTRIN) 800 mg Oral Tab methocarbamol (ROBAXIN) 500 mg oral Tab omeprazole (PRILOSEC) 20 mg oral delayed release capsule oxyCODONE-acetaminophen (PERCOCET) 10-325 mg oral Tab rOPINIRole (REQUIP) 3 mg Oral Tab sodium chloride 0.65% (SALINE NASAL MIST) 0.65 % Nasal [place] SprA topiramate (TOPAMAX) 100 mg oral tablet traZODone (DESYREL) 300 mg oral tablet triamterene-hydrochlorothiazide (DYAZIDE) 37.5-25 mg oral capsule varenicline (CHANTIX) 1 mg oral tablet ziprasidone hcl (GEODON) 60 mg oral capsule ALLERGIES: The patient has no known allergies to medications. PAST MEDICAL HISTORY: Anxiety Asthma Bipolar disorder Depression Heartburn Insomnia Obesity Restless legs syndrome PAST SURGICAL HISTORY: section Hysterectomy Lumbar spinal fusion Orthopedics Tubal ligation FAMILY HISTORY: Diabetes SOCIAL HISTORY: Single. Current smoker. Rare alcohol use. Frequent marijuana use. REVIEW OF SYSTEMS: Review of Systems See HPI PHYSICAL EXAM: Physical Exam Temperature: 97.3 ??F (36.3 ??C) HR: 78 Respirations: 14 BP: 121/74 SpO2: 98 % GENERAL: The patient is awake, alert, well-developed and well-nourished, appears in no acute distress. HEENT: Moist mucous membranes and lips. NECK: Trachea midline. No meningismus. EYES: No scleral icterus. Conjunctivae normal. RESPIRATORY: No respiratory distress, breathing comfortably. No stridor. Normal voice. MUSCULOSKELETAL: Bruising over the interphalangeal joint of the thumb on the right. No ligamentous instability of the ulnar collateral joint. No subungual hematoma. No deformity. SKIN: Distal extremities are warm and well-perfused. NEUROLOGIC: Alert and oriented. Grossly normal strength in all extremities. Diffusely intact sensation and normal coordination. ED COURSE: Imaging: XR Right Fingers: No evidence of fracture or subluxation. Soft tissues are unremarkable. No abnormalities demonstrated. Reading per radiology MDM: Maria Del Rosario Servin is a 41 y.o. female who presents today because of a contusion to her right thumb that occurred last night. She does have a mild bruise over the dorsum of the thumb, but no deformity or deficits in terms of range of motion. There is no signs of ligamentous instability. Her x-ray is negative. I wrapped her thumb with an MESERET wrap to help support, which she said felt much better. She was encouraged to take ibuprofen and Tylenol as needed and follow up with a primary doctor. She had no further questions or concerns and was discharged to home in stable condition. DIAGNOSIS: 1. Contusion of right thumb without damage to nail, initial encounter DISPOSITION: Discharged to home ATTESTATION: Scribe Attestation: I, Dawson Samuels, am serving as a scribe to document services personally performed by Joey Cottrell MD, based on my observations and the provider's statements to me. Provider Attestation: The documentation recorded by the scribe accurately reflects the service I personally performed and the decisions made by me, Joey Cottrell MD 02/13/17 2:19 PM 02/12/2017 EMERGENCY DEPARTMENT Valentina Reyez RN - 02/12/2017 8:39 AM CDT Patient's right thumb was slammed in a car door last night. Patient has some swelling to the right thumb. Patient states the is pain when trying to move finger. documented in this encounter Plan of Treatment [...] documented in this encounter Visit Diagnoses Diagnosis Contusion of right thumb without damage to nail, initial encounter - Primary documented in this encounter Care Teams Senior Clinical Sas Programmer Relationship Specialty Start Date End Date Jacques Alcantara MD PCP - General Family Medicine 12/15/12 [facility], PCP - Primary Care Clinic 3 09/16/17 [facility] documented as of this encounter
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
--- OUTSIDE RECORDS SUMMARY | 2022-01-24 09:46 | XMS_ITS | Encounter Summary ---
:1975 Author Organization [facility] Address [address] [place] [address] Care Team Providers Name Role Phone Jacques Alcantara MD Primary Care Provider Unavailable [facility] Phy Unavailable Unavailable Reason for Visit Reason Comments Consultation Discuss surgery for ingrown toenails Encounter Details Date Type Department Care Team Description 06/04/2016 Office Visit [facility] Kala Luis Veliz, In growing nail (Primary Dx); Clinic - Dhaval DPM Pain in toes of both feet; [address] [place]rientos; [place] [address] [address] Tinea unguium [phone] [place] [address] (Wo rk) Social History Tobacco Use Types [...] Sign Reading Time Taken Comments Blood Pressure 100/72 06/04/2016 9:14 AM DIRECTOR OF ASSESSMENT Pulse 72 06/04/2016 9:14 AM DIRECTOR OF ASSESSMENT Temperature 36.8 ??C (98.2 ??F) 06/04/2016 9:14 AM DIRECTOR OF ASSESSMENT Respiratory Rate - - Oxygen Saturation - - Inhaled Oxygen Concentration - - Weight - - Height - - Body Mass Index - - documented in this encounter Progress Notes Luis Armendariz DPM - 06/04/2016 9:10 AM CST PROGRESS NOTE SUBJECTIVE Maria Del Rosario is a 40-year-old woman that persist clinic today for discussion regarding removal of her painful ingrown toenails. Patient states she would like to have her first and second toenails on both feet surgically removed permanently as she has tried all conservative treatment options without success and these continue to cause her discomfort. She notices that they are incurvated and inflamed. She has no other concerns or questions and states she understands what this would entail as she has had foot surgery before so she knows the risks. Patient denies fever, chills, nausea, vomiting, diarrhea, night sweats, shortness of breath or chest pain. Patient has no other foot or ankle complaints at this time. OBJECTIVE BP 100/72 (BP Cuff Site: Left arm, BP Cuff Position: Sitting, BP Cuff Size: Large adult) Pulse 72 Temp 98.2 ??F (36.8 ??C) (Oral) GENERAL APPEARANCE: She is awake, [...] and surgical options for the ingrown toenails. Patient states that she has done everything possible conservatively and continues to struggle with the first and second toe nails on both feet. She wishes to have them excised surgically and permanently. She is requesting have the procedure done specifically at [facility]. All risks and complications inherent to surgery were discussed with the patient and she agreed to proceed with surgical removal of bilateral hallux toenails and second toenails with phenol application for permanent removal. Patient was scheduled for June 10 at 7:30 AM at [facility] operating room. She was given information this date regarding her surgery time and was instructed that she will have to obtain a preoperative history and physical prior to next Thursday. She was instructed to contact the clinic with any questions or concerns prior to next Thursday. Patient will follow-up one week after her procedure for evaluation. Luis Armendariz DPM [facility] 06/04/2016 9:35 AM This document was created using voice recognition software and effort was taken in order to review for accuracy, though some inadvertent typographical errors may be present. CTOR OF ASSESSMENT documented in this encounter Plan of Treatment Not on filedocumented as of this encounter Visit Diagnoses Diagnosis Ingrowing nail - Primary Pain in toes of both feet Macronychia Other specified disease of nail Tinea unguium Dermatophytosis of nail documented in this encounter Care Teams Seaman Officer Relationship Specialty Start Date End Date Jacques Alcantara MD PCP - General Family Medicine 12/15/12 [facility], PCP - Primary Care Clinic 3 09/16/17 [facility] documented as of this encounter
--- OUTSIDE RECORDS SUMMARY | 2022-01-24 09:46 | XMS_ITS | Encounter Summary ---
:1975 Author Organization [facility] Address [address] [place] [address] Care Team Providers Name Role Phone Jacques Alcantara MD Primary Care Provider Unavailable [facility] Unavailable Unavailable Reason for Visit Reason Comments Toe swelling had great toenails removed , deputy program manager called in abx today for possible inf, wanted to have them checked out Encounter Details Date Type Department Care Team Description 07/03/2016 Office Visit [facility] Kiel Jackson Post op infection Clinic - [facility] SONYA Webber (Primary Dx) [address] [place] [address] [address] [facility] [address] [phone] Social History Tobacco Use Types Packs/Day Years [...] Sign Reading Time Taken Comments Blood Pressure 114/74 07/03/2016 2:00 PM LIGHTNING ROD ERECTOR Pulse 77 07/03/2016 2:00 PM LIGHTNING ROD ERECTOR Temperature 36.6 ??C (97.8 ??F) 07/03/2016 2:00 PM LIGHTNING ROD ERECTOR Respiratory Rate 16 07/03/2016 2:00 PM LIGHTNING ROD ERECTOR Oxygen Saturation 96% 07/03/2016 2:00 PM LIGHTNING ROD ERECTOR Inhaled Oxygen Concentration - - Weight 97.8 kg (215 lb 11.2 oz) 07/03/2016 2:00 PM LIGHTNING ROD ERECTOR Height 154.9 cm (5' 1) 07/03/2016 2:00 PM LIGHTNING ROD ERECTOR Body Mass Index 40.76 07/03/2016 2:00 PM LIGHTNING ROD ERECTOR documented in this encounter Progress Notes Kiel Jackson PA-C - 07/03/2016 2:00 PM CST Subjective: Maria Del Rosario Servin is a 41 y.o. female who presents today for: HPI 1. The patient is a very pleasant 41-year-old female presenting to the clinic for evaluation of possible bilateral great toe infection. The patient had procedure completed on 06/10/2016 to have toenailsremoved bilaterally. Infection started approximately 1 week ago. She states that the distal portion of her great toes bilaterally have erythema and discharge. She has spoken with the deputy program manager to perform the procedure. He is sent over a prescription for Augmentin starting today. The patient states she wanted to follow-up in clinic to see if there is anything else that needed to take place. The patient denies any fever, nausea, vomiting. She does have the erythema and discharge located to the nailbeds of the great toes bilaterally. There is erythema surrounding this area. She does note that there is moderate pain associated to the area. Patient denies shortness of breath or chest pain. The patienthas been managing her pain with artery prescribed for cassette for back pain, and ibuprofen. She hasnot used any antibiotics. The patient does not that the analgesics do manage her pain significantly. The past medical, surgical, family, social history as listed below and updated. Past Medical History: Diagnosis Date ??? Asthma mild intermittant/ more inWinter ??? Bipolar disorder (HCC) 1999 [facility] [place] operated by [facility] ??? Chronic mental illness 1990 ??? Depression with anxiety ??? Heartburn ??? Insomnia trazadone tx works well ??? Lumbar vertebral fracture (HCC) 1987 L4 or L5 ??? RLS (restless legs syndrome) 2004 requip works well hs Past Surgical History: Procedure Laterality Date ??? HB TUBAL LIGATION ADDL 2000 ??? HX SECTION 1997,2000 ??? HX FOOT SURGERY 2013 ??? HX HYSTERECTOMY ??? HX PARTIAL HYSTERECTOMY 2003 ??? LUMBAR SPINE FUSION,ANTER BERRY* Bilateral 08/2015 Family History Problem Relation Age of Onset ??? Autism Son ??? Colon Cancer Maternal Grandmother ??? Diabetes Mother ??? Drug Abuse Sister ??? Depression Sister ??? Mental Illness Sister ??? Cancer Sister stomach ??? Other Disease Son hereditary microspirtosis ??? Negative Hx Father unknown Social History Social History ??? Marital status: Single Spouse name: N/A ??? Number of children: 2 ??? 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 Smoking status: Current Every Day Smoker Packs/day: 0.50 Years: 19.00 Types: Cigarettes ??? Smokeless tobacco: Never Used Comment: started chantix ??? Alcohol use 0.6 oz/week 1 Cans of beer, 0 Standard drinks or equivalent per week Comment: once a year ??? Drug use: 7.00 per week Special: Marijuana Comment: smokes once daily for back pain ??? Sexual activity: Yes Partners: Male Other Topics Concern ??? Not on file Social History Narrative Current Outpatient Prescriptions Medication Sig Dispense Refill ??? albuterol HFA 90mcg/puff (PROAIR HFA) 90 mcg/actuation Inhl 2 Puffs by Inhalation route every 4 (four) hours as needed. 1 Inhaler 11 ??? amoxicillin/clavulanate (AUGMENTIN) 875-125 mg oral tablet Take 1 tablet (875 mg) by mouth Twicea Day. 14 tablet 0 ??? Cholecalciferol, Vitamin D3, (VITAMIN D3) 2,000 unit oral capsule Take 2,000 Units by mouth oncedaily. 90 capsule 3 ??? dextroamphetamine-amphetamine (ADDERALL XR) 10 mg Oral 24hr SR caps Take by mouth Twice a Day. ??? Diaper,Brief, Adult,Disposable (DEPEND UNDERWEAR L-XL) 1 Each by [facility].(Non- Drug; Combo Route) route three times a day. 100 Each 3 ??? DIAZEPAM ORAL Take by mouth. ??? [...] 0.65% (SALINE NASAL MIST) 0.65 % Nasal [place] SprA Instill 1- 2 Sprays into EACH nare every 1 (one) hour as needed. 1 Bottle 11 ??? topiramate (TOPAMAX) 25 mg oral tablet Take 4 tablets (100 mg) by mouth at bedtime. 120 tablet 3 ??? traZODone (DESYREL) 100 mg Oral Tab Take 300 mg by mouth at bedtime. ??? triamterene-hydrochlorothiazide 37.5 MG-25 MG (DYAZIDE) 37.5-25 mg oral Cap 6 ??? ziprasidone hcl (GEODON) 40 mg oral Cap Takes 40 mg in the morning and 60 mg at bedtime. 2 No Known Allergies 8 point review of systems completed and negative other than stated in HPI. Objective: BP 114/74 (BP Cuff Site: Right arm, BP Cuff Position: Sitting, BP Cuff Size: Large adult) Pulse 77 Temp 97.8 ??F (36.6 ??C) (Oral) Resp 16 Ht 1.549 m (5' 1) Wt 97.8 kg (215 lb 11.2 oz) LMP (LMP Unknown) SpO2 96% ? No BMI 40.76 kg/m2 General Appearance: Normal, healthy, cooperative, in no acute distress Skin: Skin color, texture, turgor normal. No rashes or lesions. Head: Normocephalic. No masses, lesions, tenderness or abnormalities Eyes: Conjunctivae/corneas clear. Pupils are equally round and reactive to light. Extraocular movements are intact. Fundi benign. Lungs: Lungs clear to auscultation Heart: negative. RRR without murmur, gallop, or rubs. No ectopy. Extremities: There is a purulent discharge from the pelvis bilaterally of the great toes. The distaljoint has erythema surrounding it. Nontender to palpation. There is mild erythema along the distal joint of the second digits bilaterally. No discharge noted this area. There is no tenderness to palpation. Complete range of motion. Appropriate strength. Sensation is intact. Peripheral pulses are intact. Labs/Imaging No results found for this or any previous visit (from the past 24 hour(s)). ASSESSMENT& PLAN: Maria Del Rosario was seen today for toe swelling. Diagnoses and all orders for this visit: Post op infection - ketorolac (TORADOL) intraMUSCULAR injection 60 mg; Inject 2 mL (60 mg) into the muscle ONCE. The patient's presentation physical exam is most consistent with a postop infection of the bilateralgreat toes. Procedure was completed on 06/10/2016 to have these removed. The patient has spoken with her deputy program manager, Dr. Armendariz, who has provided 10 days of Augmentin. The patient is being provided witha Toradol injection clinic due to the pain. This time, do not feel other intervention is take place.The patient had her toes cleansed, bacitracin was applied, and dressed. The patient was educated on red flags return to clinic in reasons presented to the ER. These consist of, but not limited to severe pain, fever, nausea, vomiting. Patient and start understanding. She'll follow up with her deputy program manager if she has any other concerns. There are document notes stating that her deputy program manager will see her inclinic at [place] tomorrow if she has any other concerns. Kiel Jackson PA-C [facility] TNING ROD ERECTOR documented in this encounter Plan of Treatment Not on filedocumented as of this encounter Visit Diagnoses Diagnosis Post op infection - Primary Other postoperative infection documented in this encounter Administered Medications Inactive Administered Medications - up to 3 most recent administrations Medication Order MAR Action Action Date Dose Rate Site ketorolac (TORADOL) Given 07/03/2016 2:28 PM 60 mg Right Upper Gluteal intraMUSCULAR injection 60 LIGHTNING ROD ERECTOR mg 60 mg, IntraMUSCULAR, ONCE, 1 dose, On Mikala 07/03/16 at 1415, Maximum duration of treatment is 5 days. documented in this encounter Care Teams White Washer Relationship Specialty Start Date End Date Jacques Alcantara MD PCP - General Family Medicine 12/15/12 [facility], PCP - Primary Care Clinic 3 09[facility]17 [facility] as of this encounter
--- OUTSIDE RECORDS SUMMARY | 2022-01-24 09:46 | XMS_ITS | Encounter Summary ---
:1975 Author Organization [facility] Address [address] [place] [address] Care Team Providers Name Role Phone Jacques Alcantara MD Primary Care Provider Unavailable [facility] Unavailable Unavailable Reason for Visit Reason Comments Care coordination PHQ9 Encounter Details Date Type Department Care Team Description 06/22/2017 [facility] Coordination [facility] [address] [place] [address] [place] [address] Social History Tobacco Use Types Packs/Day Years [...] on file documented as of this encounter Progress Notes Heidi Bliss - 06/22/2017 9:36 AM CST PHQ9 form was sent to patient to fill out and return. Heidi Bliss Threading Machine Feeder Automatic T LOADER MACHINE OPERATOR documented in this encounter Plan of Treatment Not on filedocumented as of this encounter Visit Diagnoses Not on filedocumented in this encounter Care Teams Passenger Car Cleaning Supervisor Relationship Specialty Start Date End Date Jacques Alcantara MD PCP - General Family Medicine 12/15/12 [facility], PCP - Primary Care Clinic 3 09/16/17 [facility] Phy documented as of this encounter
--- OUTSIDE RECORDS SUMMARY | 2022-01-24 09:46 | XMS_ITS | Encounter Summary ---
:1975 Author Organization [facility] Address [address] [place] [address] Care Team Providers Name Role Phone Jacques Alcantara MD Primary Care Provider Unavailable [facility] Unavailable Unavailable Reason for Visit Reason Onset Date Comments Kidney problem states pain started 1 week ago, urine is bright yellow and dark at times Flu Vaccine 02/09/2017 Encounter Details Date Type Department Care Team Description 02/09/2017 Office Visit [facility] Kiel Jackson Need for influenza vaccination (Primary Dx); Clinic - [facility] SONYA Webber Asthma, unspecified asthma severity, uns pecified whether complicated, unspecified whether persistent; [address] [place] [address] [address] Acute right-sided low back pain without sciatica [place], [place] [address] [place] [address] [phone] Social History Tobacco Use Types Packs/Day Years [...] Sign Reading Time Taken Comments Blood Pressure 120/82 02/09/2017 1:13 PM CDT Pulse 84 02/09/2017 1:13 PM CDT Temperature 36.7 ??C (98.1 ??F) 02/09/2017 1:13 PM CDT Respiratory Rate 16 02/09/2017 1:13 PM CDT Oxygen Saturation 95% 02/09/2017 1:13 PM CDT Inhaled Oxygen Concentration - - Weight 98 kg (216 lb 1.6 oz) 02/09/2017 1:13 PM CDT Height 154.9 cm (5' 1) 02/09/2017 1:13 PM CDT Body Mass Index 40.83 02/09/2017 1:13 PM CDT documented in this encounter Progress Notes Kiel Jackson PA-C - 02/09/2017 1:00 PM CDT Subjective: Maria Del Rosario Servin is a 41 y.o. female who presents today for: HPI 1. Pleasant 41-year-old female presenting to clinic for evaluation of right low back pain. The patient states her symptoms been ongoing for the past 4 days. Located only in the right eye, worsening over the past 4. Believes that her symptoms are likely associated with the kidneys. Increased pain with forward flexion and change of position. She has tried ibuprofen with no relief. As that her urine hasbeen darker in color. Denies any blood or pain with urination. Denies any recent trauma or falls. Nofever, nausea, vomiting, or abdominal pain. Denies any radiation of pain. 2. Asthma: Patient has a history of mild intermittent asthma, worse in the winter. Predominantly associated with cold weather it appears. Currently uses an albuterol inhaler on a when necessary basis. Has not had to use it recently. Notes that she still has one at home. Denies use of any inhaled corticosteroids. No recent oral steroids, or hospitalizations. Past Medical History: Diagnosis Date ??? Asthma (HCC/RxHCC) mild intermittant/ more inWinter ??? Bipolar disorder (HCC/RxHCC) 1999 [facility] ??? Chronic mental illness 1990 ??? Depression with anxiety ??? Heartburn ??? Insomnia trazadone tx works well ??? Lumbar vertebral fracture (HCC/RxHCC) 1988 L4 or L5 ??? RLS (restless legs syndrome) 2004 requip works well hs Past Surgical History: Procedure Laterality Date ??? HB TUBAL LIGATION ADDL 2000 ??? HX SECTION 1997,2001 ??? HX FOOT SURGERY 2013 ??? HX [...] stomach ??? Other Disease Son hereditary microspirtosis Social History Social History ??? Marital status: [...] Comment: once a year ??? Drug use: Frequency: 7.0 times per week Types: Marijuana Comment: smokes once daily for back pain ??? Sexual activity: Yes Partners: Male Other Topics Concern ??? Not on file Social History Narrative ??? No narrative on file Current Outpatient Prescriptions Medication Sig Dispense Refill ??? albuterol HFA (PROAIR HFA) 90 mcg/actuation Inhl inhaler Inhale 2 puffs every 4 (four) hours as needed. 18 g 3 ??? cetirizine (ZYRTEC) 10 mg oral tablet Take 10 mg by mouth once daily. ??? Diaper,Brief, Adult,Disposable (DEPEND UNDERWEAR L-XL) 1 Each by Misc.(Non- Drug; Combo Route) route three times a [...] 0.65% (SALINE NASAL MIST) 0.65 % Nasal [place] SprA Instill 1- 2 Sprays into EACH [...] a Day. ) 90 capsule 1 No Known Allergies 8 point review systems completed and negative other than stated in the history of present illness. Objective: BP 120/82 (BP Cuff Site: Right arm, BP Cuff Position: Sitting, BP Cuff Size: Large adult) Pulse 84 Temp 98.1 ??F (36.7 ??C) (Oral) Resp 16 Ht 1.549 m (5' 1) Wt 98 kg (216 lb 1.6 oz) LMP (LMP Unknown) SpO2 95% ? No BMI 40.83 kg/m?? General Appearance: Normal, healthy, cooperative Skin: Skin color, texture, turgor normal. No rashes or lesions. Head: Normocephalic. No masses, lesions, tenderness or abnormalities Back: Mild pain with palpation along the right lower lumbar region. Pain with percussion. Pain with forward flexion, positive straight leg lift. Lungs: Lungs clear to auscultation Heart: negative. RRR without murmur, gallop, or rubs. No ectopy. Abdomen: Abdomen soft, non-tender. BS normal. No masses or organomegaly Extremities: Extremities normal. No deformities, edema, or skin discoloration. Good capillary refill. Musculoskeletal: Range of motion normal in hips, knees, shoulders, and spine. Labs/Imaging Results for orders placed or performed in visit on 02/09/17 (from the past 24 hour(s)) URINALYSIS W/ MICRO/CULTURE REFLEX OP Result Value Ref Range UA PH OP 5.5 5.0, 5.5, 6.0, 6.5, 7.0, 7.5, 8.0 UA SPECIFIC GRAVITY OP 1.020 1.015, 1.020, 1.025 UA PROTEIN OP Negative Negative mg/dL UA GLUCOSE OP Negative Negative mg/dL UA KETONES OP Negative Negative mg/dL UA BILIRUBIN OP Negative Negative UA BLOOD OP Negative Negative, Trace UA UROBILINOGEN OP 0.2 0.2, 1.0 EU/dL UA LEUKOCYTE ESTERASE OP Moderate (A) Negative, Trace UA NITRITE OP Negative Negative URINALYSIS MICROSCOPY OP (LAB USE ONLY) Result Value Ref Range RBC UA OP Occasional None Seen, Occasional /hpf WBC UA OP 10-14 (A) None Seen, Occasional, 1-4 /hpf BACTERIA UA OP Absent Absent ASSESSMENT& PLAN: Maria Del Rosario was seen today for kidney problem and flu vaccine. Diagnoses and all orders for this visit: Lumbar pain - URINALYSIS W/ MICRO/CULTURE REFLEX OP Patient's right lower back pain is most consistent with lumbar pain. On exam, there was pain with palpation, as well as percussion. A UA was completed, which showed positive leukocyte Estrace, positivewhite blood cells, however no bacteria or nitrates. Due to the patient not have any dysuria, urinaryurgency, or frequency, she is not going to be treated for a UTI at this time. Her urine will be sentfor culture. She is informed that her pain is most consistent with a muscle pain. At this time, willuse ibuprofen and Tylenol for pain. Tylenol was sent to the pharmacy. In addition, she is provided with exercises to complete for stretching. She was encouraged to use heat in the morning, niacin luisain g.Understanding and agrees. Educated on red flags return to the clinic. If her urine culture returnspositive for bacteria, and appropriate antibiotic be sent to the pharmacy, the patient called and notified. Need for influenza vaccination - FLU VAC QUAD (PF), 6-35 MOS Provided today in clinic Asthma, unspecified asthma severity, unspecified whether complicated, unspecified whether persistent([facility]/RxHCC) Patient's asthma is well controlled at this time. Not needing albuterol currently. She notes that she has not used her albuterol for approximate month. Continues have it at home. Encouraged to have a humidifier at her house during the winter months, which seem to aggravate her symptoms. In addition, use albuterol inhaler on a when necessary basis. She should also use it approximately 15 minutes priorto activity. Notes understanding. If she develops a cough, she should trial her albuterol inhaler, possible antihistamine as well. Notes understanding. Denies any concerns. Kiel Jackson PA-C [facility] Kiel Jackson PA-C - 02/09/2017 1:00 PM CDT Results discussed with patient in the office. Kiel Jackson PA-C - 02/09/2017 1:00 PM CDT I tried to call with results. Voicemail full. Kiel Jackson PA-C [facility] documented in this encounter Plan of Treatment Not on filedocumented as of this encounter Procedures Procedure Name Priority Date/Time Associated Comments Diagnosis URINALYSIS Routine 02/09/2017 1:29 PM Results f or this MICROSCOPY OP (LAB CDT procedure are in USE ONLY) the results section. URINALYSIS W/ Routine 02/09/2017 1:29 PM Acute right-sided Res ults for this MICRO/CULTURE REFLEX CDT low back pain proced ure are in OP without sciatica the results section. CULT-URINE Routine 02/09/2017 1:29 PM Acute right-sided Resu lts for this CDT low back pain procedure are in without sciatica the results section. documented in this encounter Results CULT-URINE (02/09/2017 1:29 PM CDT) [facility] Method Time Signature Urine Culture Mixed emerita 02/10/2017 [facility] L with 3 or 1:27 PM CDT HEALTH more LABORATORY organisms present. Each organism under 20,000 cfu/ml. Comment: Probable collection contaminate s or catheter colonization. Specimen Anatomical Collection Method Collection Time Receive d Time (Source) Location / / Volume Laterality Urine 02/09/2017 1:29 PM 7 1:29 CDT PM CDT Kiel Jackson PA-C MICROBIOLOGY ORDERABLE Performing Organization Address City/State/ZIP Code Phon e Number [address] [address] LABORATORY (ABNORMAL) URINALYSIS MICROSCOPY OP (LAB USE ONLY) (02/09/2017 1:29 PM CDT) [facility] Method Time Signature RBC UA OP Occasional None Seen, 02/09/2017 [place] Occasional 1:43 PM CDT [facility] WBC UA OP 10-14 (A) None Seen, 02/09/2017 [place] Occasional, 1:43 PM CDT [facility] [address] BACTERIA UA Absent Absent 02/09/2017 [place] OP 1:43 PM CDT [facility] Specimen Anatomical Collection Method Collection Time Receive d Time (Source) Location / / Volume Laterality Urine 02/09/2017 1:29 PM 7 1:29 CDT PM CDT Kiel Jackson PA-C URINE ORDERABLE Performing Organization Address City/State/ZIP Code Phon e Number [address] [address] [facility] (ABNORMAL) URINALYSIS W/ MICRO/CULTURE REFLEX OP (02/09/2017 1:29 PM CDT) [facility] gist Method Time Signature UA PH OP 5.5 5.0, 5.5, 02/09/2017 [place] 6.0, 6.5, 1:37 PM CDT [facility] 7.0, 7.5, [facility] 8.0 [facility] UA SPECIFIC 1.020 1.015, 02/09/2017 [place] GRAVITY OP 1.020, 1:37 PM CDT [facility] 1.025 [facility] UA PROTEIN OP Negative Negative 02/09/2017 [place] mg/dL 1:37 PM CDT [facility] UA GLUCOSE OP Negative Negative 02/09/2017 [place] mg/dL 1:37 PM CDT [facility] UA KETONES OP Negative Negative 02/09/2017 [place] mg/dL 1:37 PM CDT [facility] UA BILIRUBIN OP Negative Negative 02/09/2017 [place] 1:37 PM CDT [facility] UA BLOOD OP Negative Negative, 02/09/2017 [place] Trace 1:37 PM CDT [facility] UA UROBILINOGEN 0.2 0.2, 1.0 02/09/2017 [place] OP EU/dL 1:37 PM CDT [facility] UA LEUKOCYTE Moderate (A) Negative, 02/09/2017 [place] ESTERASE OP Trace 1:37 PM CDT [facility] UA NITRITE OP Negative Negative 02/09/2017 [place] 1:37 PM T [facility] Specimen Anatomical Collection Method Collection Time Receive d Time (Source) Location / / Volume Laterality Urine 02/09/2017 1:29 PM 7 1:29 CDT PM CDT Kiel Jackson PA-C MICROBIOLOGY ORDERABLE Performing Organization Address City/State/ZIP Code Phon e Number [facility] [address] [facility] [address] [address] [facility] documented in this encounter Visit Diagnoses Diagnosis Need for influenza vaccination - Primary Need for prophylactic vaccination and in oculation against influenza Asthma, unspecified asthma severity, uns pecified whether complicated, unspecified whether persistent Acute right-sided low back pain without sciatica documented in this encounter Care Teams Rewriter Relationship Specialty Start Date End Date Jacques Alcantara MD PCP - General Family Medicine 12/15/12 [facility], PCP - Primary Care Clinic 3 09/16/17 [facility] Phy documented as of this encounter
--- OUTSIDE RECORDS SUMMARY | 2022-01-24 09:46 | XMS_ITS | Encounter Summary ---
:1975 Author Organization [facility] Address [address] [place] [address] Care Team Providers Name Role Phone Jacques Alcantara MD Primary Care Provider Unavailable [facility] Unavailable Unavailable Reason for Referral Consultation - Internal (Routine) - Auth-No PA/Ref Req Specialty Diagnoses / Procedures Referred By Contact Refer red To Contact Diagnoses IGTN (ingrowing toe nail) Jacques Alcantara MD [facility] [address] [place] [address] [address] [place] [address] Phone: Referral ID Status Reason Start Expiration Visits Visits Date Date Requested Authorized [id number] Auth-No Specialty 04/16/2016 1 1 PA/Ref Req Services Required Comments Bilateral ingrown toenails of 1st and 2n d toes. ER FITTER (Routine) - Closed Specialty Diagnoses / Procedures Referred By Contact Refer red To Contact Diagnoses Irregular periods/menstrual cycles Jacques Alcantara MD Procedures [facility], [facility] [address] [place] [address] Referral ID Status Reason Start Date Expiration Date Visits Requ ested Visits Authorized [id number] Closed 04/16/2016 10/13/2016 1 1 ER FITTER Reason for Visit Reason Comments Toenail states that its her 2nd toe and big toe on each foot. Lab draw wants lab test to see if she 's going through menopause. States she's been crying alot Rx refill wants to have vitamin d2 50, 000 units filled. Other states she needs an EKG kenneth use of the dosage of geodon Encounter Details Date Type Department Care Team Description 04/16/2016 Office Visit [facility] Jacques Alcantara Mi maxe without status migrainosus, not intractable, unspecified migraine type (Primary Dx); Clinic - [facility] Irregular periods/menstrual cycles; [address] [facility] IGTN (ing rowing toe nail); [place] Vitamin D deficiency; [place], [place] [address] Bipolar affective disorder i n remission ([facility]) [phone] Social History Tobacco Use Types Packs/Day Years [...] Sign Reading Time Taken Comments Blood Pressure 128/72 04/16/2016 2:02 PM HAMMER FITTER Pulse 80 04/16/2016 2:02 PM HAMMER FITTER Temperature 36.8 ??C (98.3 ??F) 04/16/2016 2:02 PM HAMMER FITTER Respiratory Rate 16 04/16/2016 2:02 PM HAMMER FITTER Oxygen Saturation - - Inhaled Oxygen Concentration - - Weight 100.9 kg (222 lb 6.4 oz) 04/16/2016 2:02 PM HAMMER FITTER Height 154.9 cm (5' 1) 04/16/2016 2:02 PM HAMMER FITTER Body Mass Index 42.02 04/16/2016 2:02 PM HAMMER FITTER documented in this encounter Progress Notes Jacques Alcantara MD - 04/17/2016 1:33 PM CST Called patient and reviewed lab not postmenopausal. ER FITTER Jacques Alcantara MD - 04/16/2016 2:00 PM CST SUBJECTIVE: 40 y.o. female for the following health concerns. Migraine without status migrainosus, not intractable, unspecified migraine type -Irregular periods/menstrual cycles - patient is requesting refill of her migraine medication. States Topamax works well.She didn't having several headaches recently wondering if it could be related to menopause. She had a hysterectomy so she is not aware of her cycle. She also states that she's had some hot flashes dry mouth and night sweats as of late. IGTN (ingrowing toe nail) -she continues to suffer from ingrown toenails of bilateral first and second digits. Referral to podiatry for this is been a lifelong issue for her. She continues to have painon bilateral feet right greater than left at this time. Vitamin D deficiency - she is requesting a refill on her vitamin D 50,000 units. Bipolar affective disorder in remission (HCC) - patient shares because she is on Geodon and she is recommended to have an EKG but she doesn't have an order from her psychiatrist with her today. Current Outpatient Prescriptions Medication Sig Dispense Refill ??? albuterol HFA 90mcg/puff (PROAIR HFA) 90 mcg/actuation Inhl 2 Puffs by Inhalation route every 4 (four) hours as needed. 1 Inhaler 11 ??? Cholecalciferol, Vitamin D3, (VITAMIN D3) 2,000 [...] tablet 5 ??? omeprazole (PRILOSEC) 20 mg Oral CpDR Take 1 capsule by mouth Once Daily. 90 capsule 3 ??? oxyCODONE-acetaminophen (PERCOCET) 10-325 mg oral Tab Take 1-2 Tabs by mouth every 6 (six) hoursas needed (pain). ??? rOPINIRole (REQUIP) 3 mg Oral Tab Take 1 Tab by mouth Once Daily. 90 Tab 3 ??? senna (SENNA) 8.6 mg oral Tab Take 1-2 tablets by mouth Once Daily. 60 tablet 5 ??? sodium chloride 0.65% (SALINE NASAL MIST) 0.65 % Nasal [place] SprA Instill 1- 2 Sprays into EACH [...] and 60 mg at bedtime. 2 No current facility-administered medications for this visit. Allergies: Review of patient's allergies indicates no known allergies. No LMP recorded. Patient has had a hysterectomy. ROS: Feeling well Respiratory symptoms none No dyspnea or chest pain on exertion. Hot flashes and moodiness as above. Toenail concerns as above. OBJECTIVE: The patient appears well, in NAD. BP 128/72 (BP Cuff Site: Left arm, BP Cuff Position: Sitting, BP Cuff Size: Large adult) Pulse 80 Temp 98.3 ??F (36.8 ??C) (Oral) Resp 16 Ht 1.549 m (5' 1) Wt 100.9 kg (222 lb 6.4 oz) BMI 42.02 kg/m2 ISAC. Lungs are clear, good air entry, no wheezes, rhonchi or rales. S1 and S2 normal, no murmurs, regular rate and rhythm. Patient appears brighter today she is much more with it. Previously she had appeared altered snowed on her pain medications from surgery. She is much more articulate today and she is walking normally today. She still has her back brace on. Bilateral feet with markedly curved toenails ingrown laterally of the great toe the second toe has asharp angulation of the toenail which has a growing into the first toe. ASSESSMENT/PLAN: Migraine without status migrainosus, not intractable, unspecified migraine type -Irregular periods/menstrual cycles - Plan: [facility], SERUM Plan: topiramate (TOPAMAX) 25 mg oral tablet - discussed with patient that 40 is a young age to be going through menopause however given that she had a hysterectomy and her recent mood/hot flashes/other changes we can check an FSH on her however if it's normal doesn'tnecessarily mean menopause is not going on. Discussed there is no real indication other than to helpreassure her and so we will follow up on labs as available. She expressed her understanding. I also refilled her Topamax to help treat her migraine headaches. IGTN (ingrowing toe nail) - Plan: REFERRAL PODIATRY - referral for podiatry provided in clinic today. Vitamin D deficiency - Plan: Cholecalciferol, Vitamin D3, (VITAMIN D3) 2,000 unit oral capsule - refilling vitamin D3 however not at 50,000 units weekly but 2000 units daily to continue to take every day going forward. We'll follow up on labs as available. Bipolar affective disorder in remission (HCC) - reviewed with patient we can do an EKG at any time however her appointment today is for 15 minutes. Several topics covered. Discussed she is able to return at any time to get an EKG done it would be better if she had the number of her psychiatry office so we can fax the results over to them. Pt to return if sx worsen or fail to improve, sooner as needed. Options for treatment and follow-up care were reviewed with the patient and/or guardian. Maria Del Rosario Servin and/or guardian engaged in the decision making process and verbalized understanding of the optionsdiscussed and agreed with the final plan. ER FITTER documented in this encounter Plan of Treatment Scheduled Referrals Name Type Priority Associated Diagnoses Order S chedule REFERRAL PODIATRY Follow Up Routine IGTN (ingrowing toe surjit l) Ordered: 04/16/2016 documented as of this encounter Procedures Procedure Name Priority Date/Time Associated Diagnosis Comme nts [facility] Routine 04/16/2016 2:22 PM Irregular Results f or this HAMMER FITTER periods/menstrual procedure are in the cycles results section . documented in this encounter Results [facility], [facility]UM (04/16/2016 2:22 PM HAMMER FITTER) athologist Signature [facility], SER[facility] 10.9 mIU/mL 04/17/2016 [facility] 1:23 PM HAMMER FITTER LABORATORY Specimen Anatomical Collection Method / Collection Time Recei philipp Time (Source) Location / Volume Laterality Blood Venipuncture / 04/16/2016 2:22 04/16/2016 2:22 Unknown PM HAMMER FITTER PM HAMMER FITTER Narrative [facility] LABORATORY - 04/17/2016 1 :23 PM HAMMER FITTER [facility] REFERENCE RANGE: Males: ? 1.4 - 18.1 ??mIU/mL Females: ? Follicular: ? 2.5 - 10. 2 ??mIU/mL ? Midcycle: ? 3.4 - 33 .4 ??mIU/mL ? Luteal: ? 1.5 - ? ?9.1 ??mIU/mL ? Post-menopausal: 23.0 - 116.3 mIU/mL ? : ? <0.3 ??mIU/mL Jacques Alcantara MD CHEMISTRY ORDERABLE Performing Organization Address City/State/ZIP Code Phon e Number [facility] [address] [place] [phone] LABORATORY [facility] [address] [place], [place] [address] documented in this encounter Visit Diagnoses Diagnosis Migraine without status migrainosus, not intractable, unspecified migraine type - Primary Irregular periods/menstrual cycles Irregular menstrual cycle IGTN (ingrowing toe nail) Ingrowing nail Vitamin D deficiency Unspecified vitamin D deficiency Bipolar affective disorder in remission (HCC) documented in this encounter Care Teams Plant Engineering Supervisor Relationship Specialty Start Date End Date Jacques Alcantara MD PCP - General Family Medicine 12/15/12 [facility], PCP - Primary Care Clinic 3 09/16/17 [facility] Family Phy documented as of this encounter
--- OUTSIDE RECORDS SUMMARY | 2022-01-24 09:46 | XMS_ITS | Encounter Summary ---
:1975 Author Organization [facility] Address [address] [place] [address] Care Team Providers Name Role Phone Jacques Alcantara MD Primary Care Provider Unavailable [facility] Family Phy Unavailable Unavailable Reason for Visit Reason Comments Anxiety Rx refill chantix, diazepam and requip Encounter Details Date Type Department Care Team Description 11/13/2016 Office Visit [facility] Jacques Alcantara, De pression with anxiety Clinic - [facility] (Primary Dx) [address] [place] [address] Social History Tobacco Use Types Packs/Day Years [...] Sign Reading Time Taken Comments Blood Pressure 128/82 11/13/2016 11:24 AM CDT Pulse 85 11/13/2016 11:24 AM CDT Temperature 37 ??C (98.6 ??F) 11/13/2016 11:24 AM CDT Respiratory Rate 16 11/13/2016 11:24 AM CDT Oxygen Saturation 97% 11/13/2016 11:24 AM CDT Inhaled Oxygen Concentration - - Weight 93.6 kg (206 lb 4.8 oz) 11/13/2016 11:24 AM CDT Height 154.9 cm (5' 1) 11/13/2016 11:24 AM CDT Body Mass Index 38.98 11/13/2016 11:24 AM CDT documented in this encounter Progress Notes Jacques Alcantara MD - 11/13/2016 11:15 AM CDT SUBJECTIVE: 41 y.o. female for the following health concerns. Depression with anxiety -patient is here with at least 1 week of worsening vomiting diarrhea irritability anxiousness. States in the past this has been uncontrolled anxiety symptoms for her. She's not sure if she is sick or not sick but she feels very depleted and dehydrated from the several loose stools per day. She does feel fevers and chills but no specific stomach upset other than urgent loose bowels. Denies any recent antibiotics or suspect food or travel. Current Outpatient Prescriptions Medication Sig Dispense Refill [...] Adult,Disposable (DEPEND UNDERWEAR L-XL) 1 Each by [facility]Non- Drug; Combo Route) route three times a day. 100 Each 3 ??? diazePAM (VALIUM) 10 mg oral tablet Take 1 tablet (10 mg) by mouth twice a day as needed. 30 tablet 1 ??? ergocalciferol (VITAMIN D2) 50,000 unit oral capsule Take 50,000 Units by mouth once weekly. Takes on Thursday ??? gabapentin (NEURONTIN) 300 mg oral capsule [...] 0.65% (SALINE NASAL MIST) 0.65 % Nasal [place] SprA Instill 1- 2 Sprays into EACH [...] daily with meals. ??? ziprasidone hcl (GEODON) 40 mg oral [...] unknown). Patient has had a hysterectomy. ROS: FeelingVery concerned Respiratory symptoms none No dyspnea or chest pain on exertion. No abdominal pain, however change in bowel habits as above. Denies any urinary tract symptoms. Psych as above. OBJECTIVE: The patient appears Anxious and shaking today. BP 128/82 (BP Cuff Site: Right arm, BP Cuff Position: Sitting, BP Cuff Size: Regular adult) Pulse 85 Temp 98.6 ??F (37 ??C) (Oral) Resp 16 Ht 1.549 m (5' 1) Wt 93.6 kg (206 lb 4.8 oz) LMP (LMP Unknown) SpO2 97% BMI 38.98 kg/m?? ISAC. Lungs are clear, good air entry, no wheezes, rhonchi or rales. S1 and S2 normal, no murmurs, regular rate and rhythm. No edema. Abdomen soft without tenderness, guarding, mass or organomegaly. Patient appears markedly anxious with tremor. She has poor insight. ASSESSMENT/PLAN: Depression with anxiety - Plan: diazePAM (VALIUM) 10 mg oral tablet - had patient meet with care coordination to actually get an appointment with psychiatry that was recommended back in August she neverdid follow-up on this. I did agree to provide her a small supply of Valium which traditionally has worked for her anxiety in the past. I discussed we will not be continuing this medication but if psychiatry who originally prescribed it for her would want to continue it we will defer to them. We'll await the recommendations. If her symptoms fail to improve with the treatment of her anxiety as it has in the past and she's been instructed to come in and will likely get a UA and consider other concerns for infectious gastroenteritis. Pt to return if sx worsen or fail to improve, sooner as needed. Options for treatment and follow-up care were reviewed with the patient and/or guardian. Maria Del Rosario Veliz [place] and/or guardian engaged in the decision making process and verbalized understanding of the optionsdiscussed and agreed with the final plan. documented in this encounter Plan of Treatment Not on filedocumented as of this encounter Visit Diagnoses Diagnosis Depression with anxiety - Primary Dysthymic disorder documented in this encounter Care Teams Pomology Teacher Relationship Specialty Start Date End Date Jacques Alcantara MD PCP - General Family Medicine 12/15/12 [facility], PCP - Primary Care Clinic 3 09/16/17 [facility] documented as of this encounter
--- OUTSIDE RECORDS SUMMARY | 2022-01-24 09:47 | XMS_ITS | Encounter Summary ---
:1975 Author Organization [facility] Address [address] [place] [address] Care Team Providers Name Role Phone Jacques Alcantara MD Primary Care Provider Unavailable [facility] Phy Unavailable Unavailable Reason for Visit Reason Comments Post op check Right foot Encounter Details Date Type Department Care Team Description 04/26/2014 Office Visit [facility] Vivian Chapa E, DPM Pain in limb (Primary Dx); Clinic - [address] Cecilia del real toe (acquired) [address] [place], [place] [phone] (Wo rk) Social History Tobacco Use Types Packs/Day Years Used Date Smoking Tobacco: Every Day Cigarettes 0.5 19 Smokeless Tobacco: Never Alcohol Use Standard Drinks/Week Comments Yes 0.8 (1 standard drink = 0.6 oz pure alco hol) once a year Alcohol Habits Answer Date [...] Sign Reading Time Taken Comments Blood Pressure - - Pulse 80 04/26/2014 9:44 AM COREROOM FOUNDRY LABORER Temperature 36.4 ??C (97.6 ??F) 04/26/2014 9:44 AM [employer]EROOM FOUNDRY LABORER Respiratory Rate 16 04/26/2014 9:44 AM COREROOM FOUNDRY LABORER Oxygen Saturation - - Inhaled Oxygen Concentration - - Weight - - Height 157.5 cm (5' 2) 04/26/2014 9:44 AM [employer] FOUNDRY LABORER Body Mass Index - - documented in this encounter Progress Notes Robert Guevara Sammi, DPM - 04/26/2014 6:50 PM CST SEE DICTATION FOR DETAILS OF EXAMINATION AND PLAN REVIEW OF SYSTEMS A comprehensive review of systems was negative except for items noted in the HPI/Subjective. Constitutional: Negative for fever, chills and sweating Eyes: Negative for visual disturbance, irritation and redness Respiratory: Negative for cough, dyspnea, wheezing Cardiovascular: Negative for chest pain, chest pressure, chest discomfort, claudication, leg edema Gastrointestinal: Negative for nausea, vomiting, change in bowel habits, diarrhea, constipation Integument: Negative for rash, skin lesion(s), pruritis, dryness and skin color change Lymphatic: Negative for easy bruising, bleeding, lymphadenopathy and petechiae Musculoskeletal: Positive for myalgias, arthralgias, stiff joints and bone pain Neurological: Positive for headaches, memory problems, paresthesia, coordination problems and gait problems Psychiatric: Negative for nervousness, anxiety and depression PAST MEDICAL HISTORY Past Medical History Diagnosis Date ??? Asthma mild intermittant/ more inWinter ??? Depression with anxiety ??? Bipolar disorder 1999 [facility] ??? RLS (restless legs syndrome) 2004 requip works well hs ??? Insomnia trazadone tx works well ??? Lumbar vertebral fracture 1988 L4 or L5 ??? Chronic mental illness 1990 ??? Heartburn PAST SURGICAL HISTORY Past Surgical History Procedure Laterality Date ??? Hb tubal ligation addl 2000 ??? Hx section 1997,2000 ??? Hx partial hysterectomy 2003 ??? Hx hysterectomy CURRENT MEDS Current outpatient prescriptions:oxyCODONE-acetaminophen (PERCOCET) 5-325 mg Oral Tab, Take 1-2 Tabsby mouth every four (4) to six (6) hours as needed for Pain., Disp: 30 Tab, Rfl: 0; cyclobenzaprine (FLEXERIL) 10 mg Oral Tab, Take 1 Tab by mouth As instructed per provider. Take three times daily for3-4 days then as needed for muscle spasm, Disp: 30 Tab, Rfl: 1 oxyCODONE-acetaminophen (PERCOCET) 5-325 mg Oral Tab, Take 1-2 Tabs by mouth every 4 (four) hours asneeded for Pain., Disp: 75 Tab, Rfl: 0; hydrOXYzine pamoate (VISTARIL) 25 mg Oral Cap, Take 1 Cap bymouth every 4 (four) hours as needed (nausea)., Disp: 45 Cap, Rfl: 1; traZODone (DESYREL) 100 mg Oral Tab, Take 200 mg by mouth at bedtime., Disp: , Rfl: dextroamphetamine-amphetamine (ADDERALL XR) 10 mg Oral 24hr SR caps, Take by mouth Twice a Day., Disp: , Rfl: ; LORazepam (ATIVAN) 0.5 mg Oral Tab, Take 0.5 mg by mouth Twice a Day., Disp: , Rfl: ; ziprasidone hcl (GEODON) 20 mg Oral Cap, Take 40 mg by mouth Twice a Day., Disp: , Rfl: ; albuterol 90 mcg/actuation Inhl Aerosol, 2 Puffs by Inhalation route every 4 (four) hours as needed., Disp: 1 Inhaler, Rfl: 2 omeprazole (PRILOSEC) 20 mg Oral CpDR, Take 1 Cap by mouth Once Daily., Disp: 30 Cap, Rfl: 1; Ropinirole (REQUIP) 3 mg Oral Tab, Take 3 mg by mouth Once Daily., Disp: 90 Tab, Rfl: 1; hydrocortisone 2.5% (HYTONE) Top cream, Apply to skin twice a day as needed., Disp: 30 g, Rfl: 3 ALLERGIES/SENSITIVITIES No Known Allergies FAMILY HISTORY Family History Problem Relation Age of Onset ??? Autism Son ??? Colon Cancer Maternal Grandmother ??? Diabetes Mother ??? Drug Abuse Sister ??? Depression Sister ??? Mental Illness Sister ??? Cancer Sister stomach ??? Other Disease Son hereditary microspirtosis ??? Negative Hx Father unknown SOCIAL HISTORY History Social History ??? Marital Status: Single Spouse Name: N/A Number of Children: 2 ??? 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 Smoking status: Current Every Day Smoker -- 0.50 packs/day for 19 years Types: Cigarettes ??? Smokeless tobacco: Never Used ??? Alcohol Use: 0.5 oz/week 1 Cans of beer per week Comment: once a year ??? Drug Use: 7.00 per week Special: Marijuana Comment: smokes once daily for back pain ??? Sexual Activity: Yes Partners: Male Other Topics Concern ??? Not on file Social History Narrative ??? No narrative on file PHYSICAL EXAMINATION CONSTITUTIONAL: Patient is awake and alert; in no distress. RESPIRATORY: Appears comfortable and in no distress CARDIOVASCULAR: Refer to dictation for full details of examination HEME/LYMPH/IMMUNOLOGIC: no palpable lymphadenopathy, no unusual bleeding or bruising; no lymphedema MUSCULOSKELETAL: Refer to dictation for full details of examination SKIN: Refer to dictation for full details of examination NEUROLOGIC: moves all extremities, speech and language; refer to dictation for full details of examination EXTREMITIES: Refer to dictation for full details of examination PSYCHOLOGICAL/JUDGEMENT: intact/normal ROOM FOUNDRY LABORER Robert Chapa DPM - 04/26/2014 1:48 PM CST CC: SUBJECTIVE: The patient is a 38-year-old woman who presents to the clinic today for a postoperative visit. She has no new concerns. She reports that things are going very well. She is still wearing theboot and wonders when she can discontinue. She otherwise has no other new issues. OBJECTIVE: GENERAL: She is awake and alert. She is in no distress. EXTREMITIES: The skin is warm and dry. DP and PT pulses are 1/4 with prompt capillary refill time. Sensation is intact. The scar is flattened and well healed. There was no erythema, edema nor ecchymosis. There was no tenderness to palpation. ASSESSMENT: Status post fourth metatarsophalangeal joint repair. PLAN: I examined her foot and discussed a treatment plan. I did review options with her as well as aplan of care. She can discontinue the shoe. I did take plain film x-rays which looked good. The boneis healed. There is no evidence for nonunion, malunion, nor any hardware failure. At this point, consuelowill return to clinic for followup in the future as needed. Robert Chapa DPM /CHRIS Dictation ID: [id number] ROOM FOUNDRY LABORER documented in this encounter Plan of Treatment Not on filedocumented as of this encounter Results XR FOOT RT 3 VIEW (04/26/2014 10:13 AM [employer] FOUNDRY LABORER) Anatomical Region Laterality Modality Extremity Radiographic Imaging Specimen (Source) Anatomical Collection Method Collection Time Re ceived Time Location / / Volume Laterality 04/26/2014 11:54 AM [employer] FOUNDRY LABORER Impressions 04/26/2014 11:57 AM COREROOM FOUNDRY LABORER IMPRESSION: 2 fully corticated screws course dorsal to plantar through the fourth metatarsal head. No hardware complication. No fracture. The fourth MTP joint is aligned. Narrative 04/26/2014 11:57 AM COREROOM FOUNDRY LABORER EXAM: X-ray Foot 04/26/2014. COMPARISON: 01/17/2014 CLINICAL DATA: Surgical repair/reduction . Foot pain. VIEWS: Frontal, oblique, and lateral vie ws of the right foot were obtained. FINDINGS/ Procedure Note Yuko Kuhn MD - 04/26/2014Forma tting of this note might be different from the original. EXAM: X-ray Foot 04/26/2014. COMPARISON: 01/17/2014 CLINICAL DATA: Surgical repair/reduction . Foot pain. VIEWS: Frontal, oblique, and lateral vie ws of the right foot were obtained. FINDINGS/ IMPRESSION: 2 fully corticated screws course dorsal to plantar through the fourth metatarsal head. No hardware complication. No fracture. The fourth MTP joint is aligned. Robert E Sammi DPM XRAY ORDERABLE documented in this encounter Visit Diagnoses Diagnosis Pain in limb - Primary Other hammer toe (acquired) documented in this encounter Care Teams Gas Distribution Plant Operator Relationship Specialty Start Date End Date Jacques Alcantara MD PCP - General Family Medicine 12/15/12 [facility], PCP - Primary Care Clinic [facility]
--- OUTSIDE RECORDS SUMMARY | 2022-01-24 09:47 | XMS_ITS | Encounter Summary ---
:[address] [facility] Address [address] [place] [id number] Care Team Providers Name Role Phone Jacques Alcantara MD Primary Care Provider Unavailable [facility] Phy Unavailable Unavailable Reason for Referral Consultation - Internal (Routine) - Closed Specialty Diagnoses / Procedures Referred By Contact Refer red To Contact Diagnoses History of vertebral fracture Jacques Alcantara MD [facility] [address] [place] [address] [place] [id number] Phone: Fax: Referral ID Status Reason Start Date Expiration Date Visits V isits Requested Authorized [id number] Closed Specialty 02/07/2015 08/06/2015 1 1 Services Required Comments Chronic back pain, please be advised the patients son is also my patient and on adderall and his medication has been grant en by his aunt who lives in their home. Reason for Visit Reason Comments Back pain wanting to pain medication f or back pain. Encounter Details Date Type Department Care Team Description 02/07/[address] [facility] Jacques Alcantara Hi story of vertebral fracture (Primary Dx); Clinic - [facility] Alleged drug diversion - fam licha/sister with history of taking sons meds. [address] [place] [address] Social History Tobacco Use Types Packs/Day Years Used Date Smoking Tobacco: Former Cigarettes 0.5 19 Smokeless Tobacco: Never Alcohol [...] Sign Reading Time Taken Comments Blood Pressure 110/72 02/07/2015 2:57 PM CDT Pulse 80 02/07/2015 2:57 PM CDT Temperature 36.5 ??C (97.7 ??F) 02/07/2015 2:57 PM CDT Respiratory Rate 16 02/07/2015 2:57 PM CDT Oxygen Saturation - - Inhaled Oxygen Concentration - - Weight 97.2 kg (214 lb 3.2 oz) 02/07/2015 2:57 PM CDT Height 154.9 cm (5' 1) 02/07/2015 2:57 PM CDT Body Mass Index 40.47 02/07/2015 2:57 PM CDT documented in this encounter Progress Notes Jacques Alcantara MD - 02/07/2015 6:02 PM CDT SUBJECTIVE: 39 y.o. female for the following health concerns. History of vertebral fracture - states she has worked with [place] [facility] and no improvement and currentlyworking with chiro and intensive PT. Would like additional pain meds . Pt son is also my patient andearlier today he was seen in clinic and found to have a relative likely stealing his adderall. Alleged drug diversion - family/sister with history of taking sons meds. Feels like PT is helping her symptoms but has been doing intensive core exercises and at the end of the day is hardly able to walk 2/2 pain. States today she is feeling like she can not even straightenher back. States she has a high threshold for pain and she is brought to tears by her recent pain. Denies any new numbness, tingling, or changes in bowel or bladder function. Current Outpatient Prescriptions Medication Sig Dispense Refill ??? albuterol 90 mcg/actuation Inhl Aerosol 2 Puffs by Inhalation route every 4 (four) hours as needed. 1 Inhaler 2 ??? dextroamphetamine-amphetamine (ADDERALL XR) 10 mg Oral 24hr SR caps Take by mouth Twice a Day. ? ? Glucosamine &[id number] 033-197-40-0.5 mg Oral Tab Take 1 Tab by mouth Once Daily. 90Tab 3 ??? LORazepam (ATIVAN) 0.5 mg Oral Tab Take 0.5 mg by mouth Twice a Day. ??? omeprazole (PRILOSEC) 20 mg Oral CpDR Take 1 Cap by mouth Once Daily. 90 Cap 3 ??? rOPINIRole (REQUIP) 3 mg Oral Tab Take 1 Tab by mouth Once Daily. 90 Tab 3 ??? sodium chloride 0.65% (SALINE NASAL MIST) 0.65 % Nasal [place] SprA Instill 1- 2 Sprays into EACH nare every 1 (one) hour as needed. 1 Bottle 11 ??? topiramate (TOPAMAX) 25 mg Oral Tab Take 75 mg by mouth at bedtime. ??? traZODone (DESYREL) 100 mg Oral Tab Take 300 mg by mouth at bedtime. ??? varenicline (CHANTIX) 1 mg Oral Tab Take 1 mg by mouth Twice a Day. ??? ziprasidone hcl (GEODON) 20 mg Oral Cap Take 40 mg by mouth Twice a Day. No current facility-administered medications for this visit. Allergies: Review of patient's allergies indicates no known allergies. No LMP recorded. Patient has had a hysterectomy. ROS: Feeling in moderate distress. No abdominal pain, change in bowel habits. No urinary tract symptoms. MSK as above. OBJECTIVE: The patient appears in mild distress. BP 110/72 mmHg Pulse 80 Temp(Src) 97.7 ??F (36.5 ??C) (Oral) Resp 16 Ht 1.549 m (5' 1) Wt97.16 kg (214 lb 3.2 oz) BMI 40.49 kg/m2 ISAC. No edema. MS: Back: -Inspection: no obvious deformity. -Palpation: no tenderness along the spinous processes, there is tenderness to palpation in the bilateral lumbar paraspinous muscles and soft tissue. -ROM: limited to flexion, extension, side bends, rotation. Shuffling guarded gait. ASSESSMENT/PLAN: Lumbar vertebral fracture, closed, subs encounter - Plan: REFERRAL COMPREHENSIVE PAIN CENTER - [place] reviewed and signed pt PT paperwork. Counseled on longstanding nature and should be seen by pain clinicand managed given extensive issues at home and other medications that she is taking prescribed by psych. Alleged drug diversion - family/sister with history of taking sons meds. Reviewed with pt will referto pain clinic and discussed Pt to return if sx worsen or fail to improve, sooner as needed. Options for treatment and follow-up care were reviewed with the patient and/or guardian. Maria Del Rosario Servin and/or guardian engaged in the decision making process and verbalized understanding of the optionsdiscussed and agreed with the final plan. Dena Joyce - 02/07/2015 2:55 PM CDT Maria Del Rosario Servin is a 39 y.o. female who presents for chronic complaint of chronic back pain. This is not a worker's compensation injury. documented in this encounter Plan of Treatment Scheduled Referrals Name Type Priority Associated Diagnoses Order S chedule REFERRAL COMPREHENSIVE Referral Routine History of vertebr al Ordered: 02/07/2015 PAIN CENTER - [place] fracture documented as of this encounter Visit Diagnoses Diagnosis History of vertebral fracture - Primary Personal history of traumatic fracture Alleged drug diversion - family/sister w ith history of taking sons meds. Legal circumstances documented in this encounter Care Teams Glory Hole Tender Relationship Specialty Start Date End Date Jacques Alcantara MD PCP - General Family Medicine 12/15/12 [facility], PCP - Primary Care Clinic 3 09/16/17 [facility] documented as of this encounter
--- OUTSIDE RECORDS SUMMARY | 2022-01-24 09:47 | XMS_ITS | Encounter Summary ---
:1975 Author Organization [facility] Address [address] [place] [address] Care Team Providers Name Role Phone Jacques Alcantara MD Primary Care Provider Unavailable [facility] Unavailable Unavailable Reason for Visit Procedure (Routine) - Closed Specialty Diagnoses / Procedures Referred By Contact Refer red To Contact Sleep Medicine Diagnoses Snoring Jacques Alcantara MD [facility] Sleep Health Ctr Procedures [facility] SLEEP STUDY (OVERNIGHT) [address] [facility] [place] [address] [place] [address] Phone: Fax: Referral ID Status Reason Start Date Expiration Visits Visits Date Requested Authorized [id number] Closed Continuity of 08/03/2015 1 1 Care Encounter Details Date Type Department Care Team Description 08/09/2015 Hospital Encounter SLEEP LAB [address] [facility] [place], [place] [address] Social History Tobacco Use Types Packs/Day [...] Sig Dispensed Refills Start Date End Date dextroamphetamine-amphetam Take by mouth Twice 0 08/27/2016 ine (ADDERALL XR) 10 mg a Day. Oral 24hr SR caps Glucosamine Take 1 Tab by mouth 90 Tab 3 01/25/2015 08/1 12/2015 &[id number] Once Daily. [id number] mg Oral TabIndications: Bilateral low back pain with left-sided sciatica ibuprofen (MOTRIN) 800 mg Take 1 Tab by mouth 120 Tab 2 1 06/17/2014 09/17/2017 Oral Tab every 8 (eight) hours as needed. methocarbamol (ROBAXIN) Take 1 Tab by mouth 60 Tab 5 10/01/2015 500 mg oral Tab twice a day as needed (Pain or muscle spasm). methocarbamol (ROBAXIN) Take 1 Tab by mouth 60 Tab 2 05/201510/01/2015 500 mg Oral Tab twice a day as needed (Pain or muscle spasm). sodium chloride 0.65% Instill 1-2 Sprays 1 Bottle 11 201412/02/2017 (SALINE NASAL MIST) 0.65 % into EACH nare Nasal [place] every 1 (one) hour SprAIndications: Sinus as needed. headache, Dizziness traZODone (DESYREL) 100 mg Take 300 mg by 0 08/27/2016 Oral Tab mouth at bedtime. triamterene-hydrochlorothi 6 6 08/27/2016 azide 37.5 MG-25 MG (DYAZIDE) 37.5-25 mg oral Cap varenicline (CHANTIX) 1 mg Take 1 mg by mouth 60 Tab 3 0 07/17/2015 12/27/2015 Oral TabIndications: Twice a Day. Smoker documented as of this encounter Plan of Treatment Not on filedocumented as of this encounter Procedures Procedure Name Priority Date/Time Associated Diagnosis Comme nts [facility] SLEEP STUDY Routine 08/14/2015 2:30 AM CDT Snoring (OVERNIGHT) documented in this encounter Results [facility] SLEEP STUDY (OVERNIGHT) (08/14/2015 2:30 AM CDT) Narrative This result has an attachment that is no t available. Jacques Alcantara MD PROCEDURE ORDERABLE documented in this encounter Visit Diagnoses Diagnosis Snoring - Primary Other dyspnea and respiratory abnormalit y Fatigue, unspecified type Insomnia, unspecified type documented in this encounter Care Teams Lag Screwer Relationship Specialty Start Date End Date Jacques Alcantara MD PCP - General Family Medicine 12/15/12 [facility], PCP - Primary Care Clinic [facility] this [facility]
--- OUTSIDE RECORDS SUMMARY | 2022-01-24 09:47 | XMS_ITS | Encounter Summary ---
:[address] [facility] Address [address] [place] [address] Care Team Providers Name Role Phone Jacques Alcantara MD Primary Care Provider Unavailable [facility] Unavailable Unavailable Reason for Referral Consultation (Routine) - Closed Specialty Diagnoses / Procedures Referred By Contact Refer red To Contact Physical Therapy Diagnoses Bilateral low back pain [place] [address] [place] [address] Referral ID Status Reason Start Date Expiration Date Visits V isits Requested Authorized [id number] Closed Specialty 01/25/2015 07/24/2015 1 1 Services Required Comments Referral Dr. Darrick Brown DC at [facility]. Please evaluate and treat. Please incorp orate massage and chiropractic services into PT as indicated. Reason for Visit Reason Comments Rx refill requip and omeprazole Referral request [facility] for DMR Method Encounter Details Date Type Department Care Team Description 01/25/[address] [facility] Jacques Alcantara, Bi lateral low back pain with left-sided sciatica (Primary Dx); Clinic - [place] [facility] Abdominal pain, other specif ied site; [address] [place] [address] RLS (rest less legs syndrome); [place]. Flu vaccine need [place], [place] [address] Social History Tobacco Use Types [...] Sign Reading Time Taken Comments Blood Pressure 110/66 01/25/2015 11:35 AM CDT Pulse 72 01/25/2015 11:35 AM CDT Temperature 36.4 ??C (97.6 ??F) 01/25/2015 11:35 AM CDT Respiratory Rate 18 01/25/2015 11:35 AM CDT Oxygen Saturation - - Inhaled Oxygen Concentration - - Weight 94.8 kg (209 lb) 01/25/2015 11:35 AM CDT Height 154.9 cm (5' 1) 01/25/2015 11:35 AM CDT Body Mass Index 39.49 01/25/2015 11:35 AM CDT documented in this encounter Progress Notes Jacques Alcantara MD - 01/25/2015 12:30 PM CDT SUBJECTIVE: 39 y.o. female for the following health concerns. Bilateral low back pain with left-sided sciatica - states that she found a center in [place] [facility] going and it is working wonders for her low back pain. They are doing a 3 tiered approach including PT, massage and chiropractic work. She is feeling better that she has in a long time and would like to continue but would like a referral to be covered by insurance. Abdominal pain, other specified site - states that she needs refill on omeprazole that is working well on controlling her gerd symptoms and abdominal pain. RLS (restless legs syndrome) - would like refill on requip that is helping with RLS symptoms. Flu vaccine need - would like flu shot today. Current Outpatient Prescriptions Medication Sig Dispense Refill ??? albuterol 90 mcg/actuation Inhl Aerosol 2 Puffs by Inhalation route every 4 (four) hours as needed. 1 Inhaler 2 ??? dextroamphetamine-amphetamine (ADDERALL XR) 10 mg Oral 24hr SR caps Take by mouth Twice a Day. ? ? Glucosamine &Xvsykckpk-VY-Ymg1 273-449-87-0.5 mg Oral Tab Take 1 Tab by [...] 0.65% (SALINE NASAL MIST) 0.65 % Nasal [place] SprA Instill 1- 2 Sprays into EACH nare every 1 (one) hour as needed. 1 Bottle 11 ??? traZODone (DESYREL) 100 mg Oral Tab [...] hysterectomy. ROS: Feeling well Respiratory symptoms none Neuro/RLS as above. Back as above. OBJECTIVE: The patient appears well, in NAD. BP 110/66 mmHg Pulse 72 Temp(Src) 97.6 ??F (36.4 ??C) (Oral) Resp 18 Ht 1.549 m (5' 1) Wt94.802 kg (209 lb) BMI 39.51 kg/m2 ISAC. No edema. MSK - di not repeat back exam. ASSESSMENT/PLAN: Bilateral low back pain with left-sided sciatica - Plan: REFERRAL PHYSICAL THERAPY Referral placed they also advised her to start taking glucosamine/chondrointin supplement and she asked for an rx. Sent today. Continue to monitor. Abdominal pain, other specified site - Plan: omeprazole (PRILOSEC) 20 mg Oral CpDR - refilled for pttoday. RLS (restless legs syndrome) - Plan: rOPINIRole (REQUIP) 3 mg Oral Tab - refilled for pt today. Flu vaccine need - Plan: FLU VAC QUAD (PF), 3+ YRS - Immunization/Injection provided today in clinic. Pt to return if sx worsen or fail to improve, sooner as needed. Options for treatment and follow-up care were reviewed with the patient and/or guardian. Maria Del Rosario A Malone and/or guardian engaged in the decision making process and verbalized understanding of the optionsdiscussed and agreed with the final plan. documented in this encounter Plan of Treatment Scheduled Referrals Name Type Priority Associated Diagnoses Order S chedule REFERRAL PHYSICAL Referral Routine Bilateral Low Back Pain Ordered: 01/25/2015 THERAPY With Left-Sided Sciatica documented as of this encounter Visit Diagnoses Diagnosis Bilateral low back pain with left-sided sciatica - Primary Abdominal pain, other specified site RLS (restless legs syndrome) Restless legs syndrome (RLS) Flu vaccine need Need for prophylactic vaccination and in oculation against influenza documented in this encounter Care Teams Consultant Teacher Relationship Specialty Start Date End Date Jacques Alcantara MD PCP - General Family Medicine 12/15/12 [facility], PCP - Primary Care Clinic 3 09/16/17 [facility] documented as of this encounter
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
--- OUTSIDE RECORDS SUMMARY | 2022-01-24 09:47 | XMS_ITS | Encounter Summary ---
:1975 Author Organization [facility] Address [address] [place] [address] Care Team Providers Name Role Phone Jacques Alcantara MD Primary Care Provider Unavailable [facility] Unavailable Unavailable Reason for Referral (Routine) - Auth-No PA/Ref Req Specialty Diagnoses / Procedures Referred By Contact Refer red To Contact Diagnoses Bilateral low back pain, with sciatica presence unspecified Zeb Mckeon DO Procedures MRI SPINE LUMBAR W/O CONTRAST Referral ID Status Reason Start Date Expiration Date Visits V isits Requested Authorized [id number] Auth-No 12/26/2014 1 1 PA/Ref Req Reason for Visit (Routine) - Auth-No PA/Ref Req Specialty Diagnoses / Procedures Referred By Contact Refer red To Contact Diagnoses Bilateral low back pain, with sciatica presence unspecified Zeb Mckeon DO Procedures MRI SPINE LUMBAR W/O CONTRAST Referral ID Status Reason Start Date Expiration Date Visits V isits Requested Authorized [id number] Auth-No 12/26/2014 1 1 PA/Ref Req Encounter Details Date Type Department Care Team Description 12/28/2014 Hospital Encounter Special[facility] - MRI [address] [place], [place] [address] Social History Tobacco Use Types [...] mg a Day. Oral 24hr SR caps hydrocortisone 2.5% Apply to skin twice 30 g 3 013 01/25/2015 (HYTONE) Top a day as needed. creamIndications: Eczema LORazepam (ATIVAN) 0.5 mg Take 0.5 mg by 0 03/08/2015 Oral Tab mouth Twice a Day. sodium chloride 0.65% Instill 1-2 Sprays 1 Bottle 11 201412/02/2017 (SALINE NASAL MIST) 0.65 % into EACH nare Nasal [place] every 1 (one) hour SprAIndications: Sinus as needed. headache, Dizziness traZODone (DESYREL) 100 mg Take 200 mg by 0 01/25/2015 Oral Tab mouth at bedtime. ziprasidone hcl (GEODON) Take 40 mg by mouth 0 08/03/2015 20 mg Oral Cap Twice a Day. documented as of this encounter Plan of Treatment Not on filedocumented as of this encounter Procedures Procedure Name Priority Date/Time Associated Diagnosis Comme nts MRI SPINE LUMBAR Routine 12/28/2014 1:54 PM Bilateral low back Results for this W/O CON CDT pain, with sciatica procedur e are in presence unspecified the res ults section. documented in this encounter Results MRI SPINE LUMBAR W/O CONTRAST (12/28/2014 1:54 PM CDT) Anatomical Region Laterality Modality Spine Magnetic Resonance Specimen (Source) Anatomical Collection Method Collection Time Re ceived Time Location / / Volume Laterality 12/28/2014 3:00 PM CDT Impressions 12/28/2014 3:06 PM CDT IMPRESSION: Anterior listhesis of L5 on S1 due to bi lateral spondylolyses. No central spinal canal stenosis. Bilateral moderate to severe neural foraminal narrowing due to listhesis and disc bulge has progressed on the left. Narrative 12/28/2014 3:06 PM CDT EXAM: MRI LUMBAR SPINE WITHOUT CONTRAST, 12/28/2014 CLINICAL DATA: Low back pain, left great er than right with left lower extremity radiculopathy. Degenerative disc disease L5-S1 with grade 1 spondylolisthesis. No previous surgery. COMPARISON: 12/26/2014 and 10/28/2012 TECHNIQUE: Sagittal T1 FLAIR, T2, fat sa t T2; axial T1, T2 images of the lumbar spine were obtained. FINDINGS: There are 5 lumbar type verteb ral bodies. There is anterolisthesis of L5 on S1 of 5 mm due to bilateral L5 spondylolyses. There is degeneration of the L5-S1 disc. No abnormal marrow signal. Th e remainder of the lumbar discs are norm al. The conus medullaris has normal signal intensity and contour at the L1-2 level. Findings at specific interspaces: L1-2: No central canal nor neural forami nal stenosis. L2-3: No central canal nor neural forami nal stenosis. L3-4: Minimal disc bulge. No central can al nor neural foraminal stenosis. L4-5: Minimal disc bulge. No central can al nor neural foraminal stenosis. L5-S1: Broad-based disc bulge. No centra l spinal canal stenosis. Moderate to severe bilateral neural foraminal narrowing due to the listhesis and disc bulge, with progression on the left. Mild facet arthropathy. Procedure Note Yuko Kuhn MD - 12/28/2014Forma tting of this note might be different from the original. EXAM: MRI LUMBAR SPINE WITHOUT CONTRAST, 12/28/2014 CLINICAL DATA: Low back pain, left great er than right with left lower extremity radiculopathy. Degenerative disc disease L5-S1 with grade 1 spondylolisthesis. No previous surgery. COMPARISON: 12/26/2014 and 10/28/2012 TECHNIQUE: Sagittal T1 FLAIR, T2, fat sa t T2; axial T1, T2 images of the lumbar spine were obtained. FINDINGS: There are 5 lumbar type verteb ral bodies. There is anterolisthesis of L5 on S1 of 5 mm due to bilateral L5 spondylolyses. There is degeneration of the L5-S1 disc. No abnormal marrow signal. The remainder of the lumbar discs are normal . The conus medullaris has normal signal intensity and contour at the L1-2 level. Findings at specific interspaces: L1-2: No central canal nor neural forami nal stenosis. L2-3: No central canal nor neural forami nal stenosis. L3-4: Minimal disc bulge. No central can al nor neural foraminal stenosis. L4-5: Minimal disc bulge. No central can al nor neural foraminal stenosis. L5-S1: Broad-based disc bulge. No centra l spinal canal stenosis. Moderate to severe bilateral neural foraminal narrowing due to the listhesis and disc bulge, with progression on the left. Mild facet arthropathy. IMPRESSION: Anterior listhesis of L5 on S1 due to bi lateral spondylolyses. No central spinal canal stenosis. Bilateral moderate to severe neural foraminal narrowing due to listhesis and disc bulge has progressed on the left. Zeb Mckeon DO MRI ORDERABLE documented in this encounter Visit Diagnoses Diagnosis Bilateral low back pain, with sciatica p resence unspecified documented in this encounter Care Teams Pass Worker Relationship Specialty Start Date End Date Jacques Alcantara MD PCP - General Family Medicine 12/15/12 [facility] [place], PCP - Primary Care Clinic 3 09/16/17 [facility] documented as of this encounter
--- OUTSIDE RECORDS SUMMARY | 2022-01-24 09:47 | XMS_ITS | Encounter Summary ---
:1975 Author Organization [facility] Address [address] [place] [address] Care Team Providers Name Role Phone Jacques Alcantara MD Primary Care Provider Unavailable [facility] Unavailable Unavailable Reason for Visit Reason Comments Post op check Encounter Details Date Type Department Care Team Description 02/27/2014 Office Visit [facility] Vivian Chapa DPM Pain in limb (Primary Clinic - [address]) [address] [address] [address] [place], [place] [phone] (Wo rk) Social History Tobacco Use Types [...] documented as of this encounter Progress Notes Robert Chapa DPM - 02/27/2014 11:08 AM CDT SEE DICTATION FOR DETAILS OF EXAMINATION AND PLAN Robert Chapa DPM - 02/27/2014 10:44 AM CDT CC: SUBJECTIVE: The patient is a 38-year-old woman that presents to the clinic today for her first postoperative appointment. She reports doing very well. She states that there is minimal, if any, pain. She basically feels like there is some itching around the operative site. She has been moving her ankleup and down pumping her toes up and down without any discomfort. OBJECTIVE: GENERAL: She is awake and alert. She is in no distress. EXTREMITIES: The skin is warm and dry. DP and PT pulses are 1/4 with prompt capillary refill time. Sensation is intact. There was no tenderness with range of motion. There is no erythema, edema or ecchymosis. The incisions are clean, closed, dry and intact. ASSESSMENT: Status post fourth metatarsal osteotomy and excision of lesion. PLAN: I examined her foot and discussed a plan. I did review options with her as well as a plan of care. I did tell her she could start getting the area wet. She can remove the Neri wrap and so on. I did not want her weightbearing yet. She can put her heel down for relief when needed, but no pressure to the forefoot. She will return to clinic in one week and we will likely place her into a Cam walker for immobilization at that time. Robert Chapa DPM /LD Dictation ID: [id number] documented in this encounter Plan of Treatment Not on filedocumented as of this encounter Procedures Procedure Name Priority Date/Time Associated Diagnosis Comme nts XR FOOT RT 3 VIEW Routine 02/28/2014 8:54 AM Pain in limb Resu lts for this CDT procedure are i n the results section. documented in this encounter Results XR FOOT RT 3 VIEW (02/28/2014 8:54 AM CDT) Anatomical Region Laterality Modality Extremity Other Specimen (Source) Anatomical Collection Method Collection Time Re ceived Time Location / / Volume Laterality 02/28/2014 8:54 AM CDT Impressions 02/28/2014 8:55 AM CDT IMPRESSION: Prior osteotomy distal fourth metatarsal . Early calcification of surrounding callus. EXAM CODE: ?[id number] RT Narrative 02/28/2014 8:55 AM CDT EXAM: XR FOOT RT 3 VIEW EXAM DATE: ?02/27/2014 COMPARISON: None TECHNIQUE: Frontal, oblique, and lateral views of the right foot were obtained. FINDINGS: Previous osteotomy in the distal fourth metatarsal. There are 2 transverse screws. Subtle early calcified callus formation is seen surrounding the distal fourth metatarsal. No other bony abnormalities are seen. Lauren int spaces are preserved. Procedure Note Trace Jennings MD - 02/28/2014Forma tting of this note might be different from the original. EXAM: XR FOOT RT 3 VIEW EXAM DATE: 02/27/2014 COMPARISON: None TECHNIQUE: Frontal, oblique, and lateral views of the right foot were obtained. FINDINGS: Previous osteotomy in the distal fourth metatarsal. There are 2 transverse screws. Subtle early calcified callus formation is seen surrounding the distal fourth metatarsal. No other bony abnormalities are seen. Lauren int spaces are preserved. IMPRESSION: Prior osteotomy distal fourth metatarsal . Early calcification of surrounding callus. EXAM CODE: [id number] RT Robert E Zelent DPM XRAY ORDERABLE documented in this encounter Visit Diagnoses Diagnosis Pain in limb - Primary documented in this encounter Care Teams Marketing Project Specialist Relationship Specialty Start Date End Date Jacques Alcantara MD PCP - General Family Medicine 12/15/12 [facility], PCP - Primary Care Clinic 3 09/16/[address] [facility] documented as of this encounter
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
--- OUTSIDE RECORDS SUMMARY | 2022-01-24 09:47 | XMS_ITS | Encounter Summary ---
:1975 Author Organization [facility] Address [address] [place] [address] Care Team Providers Name Role Phone Jacques Alcantara MD Primary Care Provider Unavailable [facility] Unavailable Unavailable Reason for Referral (Routine) - Closed Specialty Diagnoses / Procedures Referred By Contact Refer red To Contact Diagnoses Preop cardiovascular exam Jacques Alcantara MD Procedures BASIC METAB PROFILE [id number] [place] [address] Referral ID Status Reason Start Date Expiration Date Visits Requ ested Visits Authorized [id number] Closed 10/30/2015 04/27/2016 1 1 Reason for Visit Reason Comments Pre Op exam Encounter Details Date Type Department Care Team Description 10/30/2015 Office Visit [facility] Jacques Alcantara Preop cardiovascular exam (Primary Dx); Clinic - Lashell Veliz MD Elevated fasting blood sugar ; [address] [facility] Snores; S.E. Bipolar affective disorder i n remission ([facility]); [place], [place] [address] Tobacco abuse; [phone] History of lumb ar fusion Social History Tobacco Use Types Packs/Day Years [...] Reading Time Taken Comments Blood Pressure 128/72 10/30/2015 9:29 AM CDT Pulse 84 10/30/2015 9:29 AM CDT Temperature 36.4 ??C (97.5 ??F) 10/30/2015 9:29 AM CDT Respiratory Rate 16 10/30/2015 9:29 AM CDT Oxygen Saturation - - Inhaled Oxygen Concentration - - Weight 103.4 kg (228 lb) 10/30/2015 9:29 AM CDT Height 154.9 cm (5' 1) 10/30/2015 9:29 AM CDT Body Mass Index 43.08 10/30/2015 9:29 AM CDT documented in this encounter Progress Notes Jacques Alcantara MD - 10/30/2015 6:44 PM CDT Called patient and discussed labs. Reviewed that she is prediabetic and we should recheck her blood sugar in 3 months. Discussed focus on low carbohydrate. She is inactive at this time due to low back pain and has an upcoming surgery for this. Discussed she must return for her urine testing prior to her surgery she expressed her understanding. Jacques Alcantara MD - 10/30/2015 9:49 AM CDT Preoperative History and Physical Examination Date of Examination: 10/30/2015 Proposed Surgery: Lumbar Fusions Surgeon: Dr. Gavin Marks Date of Surgery: 11/07/15 Location of Surgery: [facility] Maria Del Rosario Servin presents today in consultation for preoperative clearance for the above mentioned procedure as requested by Dr. Marks. She is essentailly otherwise in her usual state of health. She has abeen treated for groin abscess that is resolved however she has been non compliant and still has days left of abx. Indication for Surgery: - hardware migration and revision required. Previous diagnostic and therapeutic evaluation: Low back pain Chief Complaint Patient presents with ??? Pre Op exam Past Medical History: Past Medical History Diagnosis Date ??? Asthma mild intermittant/ more inWinter ??? Bipolar disorder 1999 [facility] ??? Chronic mental illness 1990 ??? Depression with anxiety ??? Heartburn ??? Insomnia trazadone tx works well ??? Lumbar vertebral fracture 1988 L4 or L5 ??? RLS (restless legs syndrome) 2004 requip works well hs Patient Active Problem List Diagnosis ??? Fatigue ??? Obesity ??? Snores ??? Multiple allergies ??? Depression with anxiety ??? Bipolar disorder ??? RLS (restless legs syndrome) ??? Insomnia ??? Tobacco abuse ??? History of vertebral fracture Current Outpatient Prescriptions: albuterol HFA 90mcg/puff (PROAIR HFA) 90 mcg/actuation Inhl 2 Puffs by Inhalation route every 4 (four) hours as needed. dextroamphetamine-amphetamine (ADDERALL XR) 10 mg Oral 24hr SR caps Take by mouth Twice a Day. DIAZEPAM ORAL Take by mouth. gabapentin (NEURONTIN) 300 mg oral capsule 3 caps TID. Glucosamine &Sybqdrgpm-VW-Rpl5 902-615-63-0.5 mg Oral Tab Take 1 Tab by mouth Once Daily. ibuprofen (MOTRIN) 800 mg Oral Tab Take 1 Tab by mouth every 8 (eight) hours as needed. methocarbamol (ROBAXIN) 500 mg oral Tab Take 2 Tabs by mouth four times a day. omeprazole (PRILOSEC) 20 mg Oral CpDR Take 1 Cap by mouth Once Daily. oxyCODONE-acetaminophen (PERCOCET) 10-325 mg oral Tab Take 1-2 Tabs by mouth every 6 (six) hours as needed (pain). rOPINIRole (REQUIP) 3 mg Oral Tab Take 1 Tab by mouth Once Daily. sodium chloride 0.65% (SALINE NASAL MIST) 0.65 % Nasal [place] SprA Instill 1-2 Sprays into EACH nare every 1 (one) hour as needed. topiramate (TOPAMAX) 25 mg Oral Tab Take 75 mg by mouth at bedtime. traZODone (DESYREL) 100 mg Oral Tab Take 300 mg by mouth at bedtime. triamterene-hydrochlorothiazide 37.5 MG-25 MG (DYAZIDE) 37.5-25 mg oral Cap varenicline (CHANTIX) 1 mg Oral Tab Take 1 mg by mouth Twice a Day. VITAMIN D2 50,000 unit oral Cap ziprasidone hcl (GEODON) 40 mg oral Cap No Known Allergies Past Surgical History: Past Surgical History Procedure Laterality Date ??? Hb tubal ligation addl 2000 ??? Hx section 1997,2000 ??? Hx partial hysterectomy 2003 ??? Hx hysterectomy ??? Hx foot surgery 2013 ??? Lumbar spine fusion,anter saud* Bilateral 08/2015 Personal/Family History of Anesthetic Reaction? NO Personal/Family History of easy bruising/bleeding disorder? NO Personal History of Snoring/Sleep Apnea? YES snoring however recently screened for sleep apnea and negative. Personal/Family History of VTE/PE? NO Current Aspirin Use? No Recent Steroid Use? No Other Significant Family History: Family History Problem Relation Age of Onset ??? Autism Son ??? Colon Cancer Maternal Grandmother ??? Diabetes Mother ??? Drug Abuse Sister ??? Depression Sister ??? Mental Illness Sister ??? Cancer Sister stomach ??? Other Disease Son hereditary microspirtosis ??? Negative Hx Father unknown Psychosocial: pt likely to go to TCU for recovery for medication management and PT/OT as she will beable to have supportive cares at home. Tobacco Use: History Smoking Status ??? Current Every Day Smoker ??? Packs/day: 0.50 ??? Years: 19.00 ??? Types: Cigarettes Smokeless Tobacco ??? Never Used Comment: started chantix Alcohol Use: History Alcohol Use ??? 0.6 oz/week ??? 1 Cans of beer, 0 Standard drinks or equivalent per week Comment: once a year Caffeine Use: cutting back 4 per day Review of Systems - General: No fevers, chills, weight loss Head: No headaches or recent trauma Eyes: No acute change in vision or other eye disease Ears: No acute change in hearing Oropharynx: No sore throat or URI symptoms CV: No chest pain or palpitations. Resp: No shortness of breath or cough. No hemoptysis. GI: No nausea, vomiting, currently being treated for constipation 2/2 opiods, no diarrhea, melena orabdominal pain : No urinary pain, change in color, or frequency MS: low back pain as above. Psych: managed bipolar with Dr Noguera psychiatrist. Stable at this time. Skin: groin right inguinal abscess resolved at today's visit. Neuro: No alterations in thinking, paresthesias, or weakness All other systems reviewed; negative findings Vitals: 10/30/15 0929 BP: 128/72 BP Cuff Site: Left arm BP Cuff Position: Sitting BP Cuff Size: Large adult Pulse: 84 Resp: 16 Temp: 97.5 ??F (36.4 ??C) TempSrc: Oral Weight: 103.4 kg (228 lb) Height: 1.549 m (5' 1) General - alert & orientated, however mild word slurring today 2/2 pain meds Head - Normocephalic, atraumatic. Eyes - Pupils are equal, pinpoint and minimally reactive to light bilaterally. Extraocular movementsare intact bilaterally. Sclera and conjunctiva clear. Lids [...] strong bilaterally. Cap refill is brisk bilaterally. Skin - previous groin lesion resolved no erythema or tenderness appreciated. Neurologic - Cranial nerves 2-12 intact, Pateller, and brachioradialis reflexes intact. Mild diffusephysical deconditioning. Currently wearing low back brace. Psych - Judgment and mental status are reasonably clear but mildly altered 2/2 meds today, patient has reasonable insight. Mood is stable. Labs/Tests ordered today: Hemoglobin: Pending Potasium: Pending 12-lead EKG: Not indicated Immunizations up to date: Yes last tetanus 2013 Diagnosis, Plan and Orders: Preop cardiovascular exam - pt does not have any contraindications to the proposed procedure. PLeasebe advised she is an overweight smoker at risk for blood clots however no history personal or familyof PE or DVT. Labs are pending and will follow up once available. Elevated fasting blood sugar - following up on A1c today. Snores - recently screened for SANTHOSH and negative. Bipolar affective disorder in remission - stable. Instructed to not take adderall on day of procedure however instructed to take all other medications as prescribed Tobacco abuse - continues to smoke however down to 2 cigs per day at this time. Advised to continue to minimize use. History of lumbar fusion - ANTERIOR LUMBER INTERBODY FUSION L5-S1 . Revision indicated as above. Dr. Marks Please see the above history and physical on our mutual patient, Maria Del Rosario Servin. This Patient is an acceptable candidate for the proposed surgical procedure and anticipated anesthesia. Thank you for allowing me to participate in the pre operative consultation of this patient. Regards, Jacques Alcantara MD documented in this encounter Miscellaneous Notes Encounter Documentation - Dena Joyce CMA - 10/30/2015 9:28 AM CDT Preoperative History and Physical Examination Date of Examination: 10/30/2015 Proposed Surgery: Lumbar Fusions Surgeon: Dr. Gavin Marks Date of Surgery: 11/07/15 Location of Surgery: [facility] [place] Fax#: [phone] [facility]: [phone]. documented in this encounter Plan of Treatment Not on filedocumented as of this encounter Procedures Procedure Name Priority Date/Time Associated Diagnosis Comme nts CBC Routine 10/30/2015 10:20 Preop cardiovascular Res ults for this (HGB,HCT,WBC,RBC,P AM CDT exam procedure are in LATELET) OP the results section. HGB A1C (GLYCO Routine 10/30/2015 10:20 Elevated fasting blood Results for this HGB) OP AM CDT sugar procedure are i n the results section. BASIC METAB Routine 10/30/2015 10:20 Preop cardiovascular Res ults for this PROFILE AM CDT exam procedure are i n the results section. documented in this encounter Results (ABNORMAL) HGB A1C (GLYCO HGB) OP (10/30/2015 10:20 AM CDT) athologist Signature HGBA1C OP 6.2 (H) <=5.6 % 10/30/2015 [facility] 10:35 AM CDT [facility] EST AVERAGE 131 (H) <=114 10/30/2015 [facility] GLUCOSE OP mg/dL 10:35 AM CDT [facility] Specimen Anatomical Collection Method / Collection Time Recei philipp Time (Source) Location / Volume Laterality Blood VENOUS BLOOD Venipuncture / 10/30/2015 10:20 6 SPECIMEN / Unknown Unknown AM CDT 10:20 AM CDT Jacques Alcantara MD CHEMISTRY ORDERABLE Performing Organization Address City/State/ZIP Code Phon e Number [facility] [address] [facility] [address] [address] - [facility] - [address] [place] [address] [facility] (ABNORMAL) BASIC METAB PROFILE (10/30/2015 10:20 AM CDT) Analysis Performed At Patho logist Time Signature SODIUM 138 136 - 145 10/30/2015 [facility] mMol/L 1:26 PM CDT LABORATORY POTASSIUM 3.7 3.5 - 5.1 10/30/2015 [facility] mMol/L 1:26 PM CDT LABORATORY CHLORIDE 107 98 - 112 10/30/2015 [facility] mMol/L 1:26 PM CDT LABORATORY CARBON DIOXIDE 27 21 - 32 10/30/2015 [facility] mMol/L 1:26 PM CDT LABORATORY BUN (UREA 6 (L) 7 - 24 10/30/2015 [facility] NITRO) mg/dL 1:26 PM CDT LABORATORY CREATININE 0.77 0.55 - 10/30/2015 [facility] 1.02 mg/dL 1:26 PM CDT LABORATORY EST GFR >60 >60 mL/min 10/30/2015 [facility] (CKD-EPI) 1:26 PM CDT LABORATORY EST GFR IF >60 >60 mL/min 10/30/2015 [facility] AM 1:26 PM CDT LABORATORY GLUCOSE 101 74 - 106 10/30/2015 [facility] mg/dL 1:26 PM CDT LABORATORY CALCIUM, SERUM 8.4 (L) 8.5 - 10.1 10/30/2015 [facility] mg/dL 1:26 PM CDT LABORATORY ANION GAP 4.0 0.0 - 15.0 10/30/2015 [facility] mMol/L 1:26 PM CDT LABORATORY Specimen Anatomical Collection Method / Collection Time Recei philipp Time (Source) Location / Volume Laterality Blood VENOUS BLOOD Venipuncture / 10/30/2015 10:20 06/21/201 6 SPECIMEN / Unknown Unknown AM CDT 10:20 AM CDT Jacques Alcantara MD CHEMISTRY ORDERABLE Performing Organization Address City/State/ZIP Code Phon e Number [facility] [address] [place] [address] LABORATORY [facility] [address] [address] (ABNORMAL) CBC (HGB,HCT,WBC,RBC,PLATELET) OP (10/30/2015 10:20 AM CDT) [facility] Signature WBC OP 6.0 4.3 - 10.8 10/30/2015 [place] K/uL 10:30 AM CDT [facility] RBC OP 3.90 (L) 4.20 - 10/30/2015 [place] 5.40 M/uL 10:30 AM T [facility] HEMOGLOBIN OP 12.5 12.0 - 10/30/2015 [place] 16.0 gm/dL 10:30 AM T [facility] HEMATOCRIT OP 37.5 36.0 - 10/30/2015 [place] 48.0 % 10:30 AM T [facility] MCV OP 96 80 - 100 10/30/2015 [place] fl 10:30 AM CDT [facility] MCH OP 32.1 27.0 - 10/30/2015 [place] 33.0 pg 10:30 AM CDT [facility] MCHC OP 33.3 33.0 - 10/30/2015 [place] 36.0 gm/dL 10:30 AM CDT [facility] RDW OP 12.4 11.5 - 10/30/2015 [place] 14.5 % 10:30 AM T [facility] PLATELET COUNT 202 150 - 400 10/30/2015 [facility] K/uL 10:30 AM CDT [facility] MPV OP 9.9 6.5 - 12.0 10/30/2015 [place] 10:30 AM T [facility] Specimen Anatomical Collection Method / Collection Time Recei philipp Time (Source) Location / Volume Laterality Blood VENOUS BLOOD Venipuncture / 10/30/2015 10:20 201 6 SPECIMEN / Unknown Unknown AM CDT 10:20 AM CDT Jacques Alcantara MD HEMATOLOGY ORDERABLE Performing Organization Address City/State/ZIP Code Phon e Number [facility] [address] [facility] [address] - [facility] - [address] [facility] [place] [address] [facility] documented in this encounter Visit Diagnoses Diagnosis Preop cardiovascular exam - Primary Pre-operative cardiovascular examination Elevated fasting blood sugar Impaired fasting glucose Snores Other dyspnea and respiratory abnormalit y Bipolar affective disorder in remission (HCC) Tobacco abuse Tobacco use disorder History of lumbar fusion documented in this encounter Care Teams Caser Up Relationship Specialty Start Date End Date Jacques Alcantara MD PCP - General Family Medicine 12/15/12 [facility], PCP - Primary Care Clinic 3 09/16/17 Lashell Cheema Phy documented as of this encounter
--- OUTSIDE RECORDS SUMMARY | 2022-01-24 09:47 | XMS_ITS | Encounter Summary ---
:1975 Author Organization [facility] Address [address] [place] [address] Care Team Providers Name Role Phone Jacques Alcantara MD Primary Care Provider Unavailable [facility] Unavailable Unavailable Reason for Referral (Routine) - Closed Specialty Diagnoses / Procedures Referred By Contact Refer red To Contact Diagnoses Preop cardiovascular exam Jacques Alcantara MD Procedures CULT-URINE [id number] [place] [address] Referral ID Status Reason Start Date Expiration Date Visits Requ ested Visits Authorized [id number] Closed 08/03/2015 01/30/2016 1 1 rocedure (Routine) - Closed Specialty Diagnoses / Procedures Referred By Contact Refer red To Contact Sleep Medicine Diagnoses Snoring Jacques Alcantara MD [facility] Procedures [facility] SLEEP STUDY (OVERNIGHT) [id number] [place] [address] [place] [address] Phone: Fax: Referral ID Status Reason Start Date Expiration Visits Visits Date Requested Authorized [id number] Closed Continuity of 08/03/2015 1 1 Care (Routine) - Closed Specialty Diagnoses / Procedures Referred By Contact Refer red To Contact Diagnoses Preop cardiovascular exam Jacques Alcantara MD Procedures BASIC METAB PROFILE [id number] [place] [address] Referral ID Status Reason Start Date Expiration Date Visits Requ ested Visits Authorized [id number] Closed 08/03/2015 01/30/2016 1 1 Reason for Visit Reason Comments Pre Op exam Rx refill albuterol Rx Encounter Details Date Type Department Care Team Description 08/03/2015 Office Visit [facility] Jacques Alcantara Preop cardiovascular exam (Primary Dx); Clinic - Lashell Veliz MD Bronchospasm; [address] [facility] Degenerat ion of intervertebral disc of lumbosacral region; S.E. Snoring; [place], [place] [address] Bipolar affective disorder, remission status unspecified ([facility]); [phone] Tobacco abuse Social History Tobacco Use Types Packs/Day Years [...] Sign Reading Time Taken Comments Blood Pressure 114/72 08/03/2015 10:31 AM CDT Pulse 86 08/03/2015 10:31 AM CDT Temperature 36.3 ??C (97.4 ??F) 08/03/2015 10:31 AM CDT Respiratory Rate 16 08/03/2015 10:31 AM CDT Oxygen Saturation - - Inhaled Oxygen Concentration - - Weight 103.1 kg (227 lb 3.2 oz) 08/03/2015 10:31 AM CDT Height 154.9 cm (5' 1) 08/03/2015 10:31 AM CDT Body Mass Index 42.93 08/03/2015 10:31 AM CDT documented in this encounter Progress Notes Jacques Alcantara MD - 08/07/2015 8:35 AM CDT Quick Note: Called pt and reviewed OK potassium, hgb, urine with likely contaminants. Jacques Alcantara MD - 08/03/2015 10:55 AM CDT Preoperative History and Physical Examination Date of Examination: 08/03/2015 Proposed Surgery: Lumbar Fusion Surgeon: Dr. Gavin Marks Date of Surgery: 08/21/15 Location of Surgery: [facility] Maria Del Rosario Servin presents today in consultation for preoperative clearance for the above mentioned procedure as requested by Dr. Marks. She is otherwise in her usual state of health. Indication for Surgery: Increasing chronic low back pain Previous diagnostic and therapeutic evaluation: Has been evaluated and imaging shows bone on bone L5-S1. Increasing pain over many years but worse over the past year to the point of limiting her activity. Chief Complaint Patient presents with ??? Pre Op exam ??? Rx Refill albuterol Rx Past Medical History: Past Medical History Diagnosis Date ??? Asthma mild intermittant/ more inWinter ??? Depression with anxiety ??? Bipolar disorder 1999 [facility] ??? RLS (restless legs syndrome) 2003 requip works well hs ??? Insomnia trazadone tx works well ??? Lumbar vertebral fracture 1988 L4 or L5 ??? Chronic mental illness 1990 ??? Heartburn Patient Active Problem List Diagnosis ??? Fatigue ??? Obesity ??? Snores ??? Multiple allergies ??? Depression with anxiety ??? Bipolar disorder ??? RLS (restless legs syndrome) ??? Insomnia ??? Tobacco abuse ??? History of vertebral fracture Current Outpatient Prescriptions: albuterol 90 mcg/actuation Inhl Aerosol 2 Puffs by Inhalation route every 4 (four) hours as needed. dextroamphetamine-amphetamine (ADDERALL XR) 10 mg Oral 24hr SR caps Take by mouth Twice a Day. DIAZEPAM ORAL Take by mouth. gabapentin (NEURONTIN) 300 mg Oral Cap 2 caps TID. Glucosamine &Blnaclttv-PI-Com8 576-213-85-0.5 mg Oral Tab Take 1 Tab by mouth Once Daily. ibuprofen (MOTRIN) 800 mg Oral Tab Take 1 Tab by mouth every 8 (eight) hours as needed. methocarbamol (ROBAXIN) 500 mg Oral Tab Take 1 Tab by mouth twice a day as needed (Pain or muscle spasm). omeprazole (PRILOSEC) 20 mg Oral CpDR Take 1 Cap by mouth Once Daily. rOPINIRole (REQUIP) 3 mg Oral Tab Take 1 Tab by mouth Once Daily. sodium chloride 0.65% (SALINE NASAL MIST) 0.65 % Nasal [place] SprA Instill 1-2 Sprays into EACH nare [...] Hx hysterectomy ??? Hx foot surgery 2013 Personal/Family History of Anesthetic Reaction? NO Personal/Family History of easy bruising/bleeding disorder? NO Personal History of Snoring/Sleep Apnea? YES - no diagnosed with sleep apnea no CPAP Personal/Family History of VTE/PE? NO Current Aspirin Use? No Recent Steroid Use? No Other Significant Family History: Family History Problem Relation Age of Onset ??? Autism Son ??? Colon Cancer Maternal Grandmother ??? Diabetes Mother ??? Drug Abuse Sister ??? Depression Sister ??? Mental Illness Sister ??? Cancer Sister stomach ??? Other Disease Son hereditary microspirtosis ??? Negative Hx Father unknown Psychosocial: family will assist with aftercares. Have bipolar and stable on medications. Tobacco Use: History Smoking status ??? Current Every Day Smoker -- 0.50 packs/day for 19 years ??? Types: Cigarettes Smokeless tobacco ??? Never Used Comment: started chantix Alcohol Use: History Alcohol Use ??? 0.6 oz/week ??? 1 Cans of beer, 0 Standard drinks or equivalent per week Comment: once a year Caffeine Use: 4 cans per day Review of Systems - General: No fevers, chills, weight loss Head: No headaches or recent trauma Eyes: No acute change in vision wears glasses for nearsighted Ears: No acute change in hearing Oropharynx: No sore throat or URI symptoms, mild allergies CV: No chest pain or palpitations. Resp: No shortness of breath or cough. No hemoptysis. GI: No nausea, vomiting, constipation, diarrhea, melena or abdominal pain : No urinary pain, change in color, or frequency MS: chronic low back issues as above. Psych: No significant change in mood, anxiety level, stable bipolar on medication. Skin: No new rashes or lesions Neuro: No alterations in thinking, paresthesias, or weakness All other systems reviewed; negative findings Filed Vitals: 08/03/15 1031 BP: 114/72 Pulse: 86 Temp: 97.4 ??F (36.3 ??C) TempSrc: Oral Resp: 16 Height: 1.549 m (5' 1) Weight: 103.057 kg (227 lb 3.2 oz) General - alert & orientated, pleasant and comfortable Head - Normocephalic, atraumatic. Eyes - Pupils are equal, round and reactive to light bilaterally. Extraocular movements are intact bilaterally. Sclera and conjunctiva clear. Lids without lesions. Ears - Tympanic membranes clear bilaterally. External canals without lesion. Nares with mild nasal congestion is present. Mouth - oropharynx is clear without exudates. [...] Cap refill is brisk bilaterally. Skin - warm, dry, intact. No rashes or erythema. Neurologic - Cranial nerves 2-12 intact, Pateller, and brachioradialis reflexes intact. Muscle tone,bulk and strength within normal limits throughout. Psych - Judgment and mental status are clear but questionable, patient has concerning but reasonableinsight. Mood is stable. MS: Back: -Inspection: no obvious deformity. -Palpation: no tenderness along the spinous processes, there is tenderness to palpation in the left lower lumbar paraspinous muscles and soft tissue. -ROM: full to flexion, extension, side bends, rotation. -Strength: full and symmetrical to knee flexion, knee extension, hip flexion, hip adduction, hip abduction, ankle dorsiflexion, ankle plantarflexion. -Reflexes: patellar and achilles reflexes symmetrical and normal. Labs/Tests ordered today: Hemoglobin: pending. Potasium:pending UA - pending. 12-lead EKG: not indicated Immunizations up to date: YES Last tetanus 2013 Diagnosis, Plan and Orders: Preop cardiovascular exam - Plan: BASIC METAB PROFILE, CBC (HGB,HCT,WBC,RBC,PLATELET) OP, URINALYSISW/ MICRO/CULTURE REFLEX OP - Will follow up on lab results as they are available. No contraindications to the proposed procedure. Bronchospasm - pt has been instructed to bring albuterol with her the morning of the surgery. Degeneration of intervertebral disc of lumbosacral region - indications for surgery as above. Snoring - Plan: [facility] SLEEP STUDY (OVERNIGHT) - pt denies apnea but has been told she snores like a freight train. Bipolar affective disorder, remission status unspecified - Discussed with pt to hold Adderall day ofsurgery but should take Diazepam as she been taking it 2 times daily for a year. Tobacco abuse - pt has been instructed to minimize smoking and no smoking 2 days prior to procedure. Obesity - concern for post surgical dvt however no personal or family history. Has been advised to stop all NSAIDs 10 days prior to procedure. Dr. Marks Please see the above history and physical on our mutual patient, Maria Del Rosario Servin. This Patient is an acceptable candidate for the proposed surgical procedure and anticipated anesthesia. Thank you for allowing me to participate in the pre operative consultation of this patient. Regards, Jacques Alcantara MD documented in this encounter Miscellaneous Notes Encounter Documentation - Dena Joyce CMA - 08/03/2015 10:33 AM CDT . Preoperative History and Physical Examination Date of Examination: 08/03/2015 Proposed Surgery: Lumbar Fusion Surgeon: Dr. Gavin Marks Date of Surgery: 08/21/15 Location of Surgery: [facility] Fax#: [phone] documented in this encounter Plan of Treatment Not on filedocumented as of this encounter Procedures Procedure Name Priority Date/Time Associated Diagnosis Comme nts [facility] SLEEP STUDY Routine 08/14/2015 2:30 AM Snoring (OVERNIGHT) CDT CBC Routine 08/03/2015 11:20 Preop cardiovascular Res ults for this (HGB,HCT,WBC,RBC,PL AM CDT exam procedur e are in ATELET) OP the results section. URINALYSIS Routine 08/03/2015 11:20 Preop cardiovascular Res ults for this MICROSCOPY OP (LAB AM CDT exam procedure are in USE ONLY) the results section. URINALYSIS W/ Routine 08/03/2015 11:20 Preop cardiovascular Re sults for this MICRO/CULTURE AM CDT exam procedure are in REFLEX OP the results section. BASIC METAB PROFILE Routine 08/03/2015 11:20 Preop cardiovascu lar Results for this AM CDT exam procedure are i n the results section. CULT-URINE Routine 08/03/2015 11:20 Preop cardiovascular Res ults for this AM CDT exam procedure are i n the results section. documented in this encounter Results [facility] SLEEP STUDY (OVERNIGHT) (08/14/2015 2:30 AM CDT) Narrative This result has an attachment that is no t available. Jacques Alcantara MD PROCEDURE ORDERABLE (ABNORMAL) CULT-URINE (08/03/2015 11:20 AM CDT) Component Value Ref Test Analysis Performed At [facility] Range Method Time Signature Urine Culture 30,000 cfu/ml of 08/04/2015 QUANT[facility] Diphtheroides (A) 2:21 PM CDT [facility] LABOR[facility]ORY Urine Culture 2,000 cfu/ml of 08/04/2015 QUANTICO Gram Positive 2:21 PM T [facility] Organism (A) LABORATORY Specimen Anatomical Collection Method Collection Time Receive d Time (Source) Location / / Volume Laterality Urine 08/03/2015 11:20 08/03/2015 AM CDT 11:20 AM CDT Jacques Alcantara MD MICROBIOLOGY ORDERABLE Performing Organization Address City/State/ZIP Code Phon e Number [place] [id number] [facility] [place] [address] LABORATORY [facility] [address] [place] [address] (ABNORMAL) URINALYSIS MICROSCOPY OP (LAB USE ONLY) (08/03/2015 11:20 AM CDT) [facility] Method Time Signature RBC UA OP None Seen None Seen, 08/03/2015 [place]TH Occasional 11:55 AM [facility] /[facility] FP WBC UA OP 10-14 (A) None Seen, 08/03/2015 NORTH Occasional, 11:55 AM [facility] 1-4 /[facility] FP BACTERIA UA Present (A) Absent 08/03/2015 [facility] OP 11:55 AM [facility] FP CLUE CELLS UA Present (A) Absent 08/03/2015 [place] OP 11:55 AM [facility] Specimen Anatomical Collection Method Collection Time Receive d Time (Source) Location / / Volume Laterality Urine 08/03/2015 11:20 08/03/2015 AM CDT 11:20 AM CDT Jacques Alcantara MD URINE ORDERABLE Performing Organization Address City/State/ZIP Code Phon e Number [address] [phone] - [address] [address] [facility] (ABNORMAL) URINALYSIS W/ MICRO/CULTURE REFLEX OP (08/03/2015 11:20 AM CDT) [facility] Method Time Signature UA PH OP 6.0 5.0, 5.5, 08/03/2015 [place] 6.0, 6.5, 11:37 AM [facility] 7.0, 7.5, [facility] - 8.0 [facility] FP UA SPECIFIC 1.025 1.015, 08/03/2015 [place] GRAVITY OP 1.020, 1.025 11:37 AM [facility] FP UA PROTEIN OP 30 (A) Negative 08/03/2015 [facility]TH mg/dL 11:37 AM [facility] FP UA GLUCOSE OP Negative Negative 08/03/2015 [facility] mg/dL 11:37 AM [facility] FP UA KETONES OP Negative Negative 08/03/2015 [facility] mg/dL 11:37 AM [facility] UA BILIRUBIN OP Negative Negative 08/03/2015 [place] 11:37 AM [facility] UA BLOOD OP Negative Negative, 08/03/2015 [place] Trace 11:37 AM [facility] UA UROBILINOGEN 0.2 0.2, 1.0 08/03/2015 [facility] OP EU/dL 11:37 AM [facility] UA LEUKOCYTE Small (A) Negative, 08/03/2015 [facility] ESTERASE OP Trace 11:37 AM [facility] UA NITRITE OP Negative Negative 08/03/2015 [facility] 11:37 AM [facility] Specimen Anatomical Collection Method Collection Time Receive d Time (Source) Location / / Volume Laterality Urine 08/03/2015 11:20 08/03/2015 AM CDT 11:20 AM CDT Jacques Alcantara MD MICROBIOLOGY ORDERABLE Performing Organization Address City/State/ZIP Code Phon e Number [address] [address] - [address] [address] [facility] CBC (HGB,HCT,WBC,RBC,PLATELET) OP (08/03/2015 11:20 AM CDT) athologist Signature WBC OP 6.0 4.3 - 10.8 08/03/2015 [facility] K/uL 11:27 AM [facility] RBC OP 4.39 4.20 - 08/03/2015 [facility] 5.40 M/uL 11:27 AM [facility] HEMOGLOBIN OP 14.2 12.0 - 08/03/2015 [facility] 16.0 gm/dL 11:27 AM [facility] HEMATOCRIT OP 41.4 36.0 - 08/03/2015 [facility] 48.0 % 11:27 AM [facility] MCV OP 94 80 - 100 08/03/2015 [facility] fl 11:27 AM T [facility] MCH OP 32.3 27.0 - 08/03/2015 [facility] 33.0 pg 11:27 AM T [facility] MCHC OP 34.3 33.0 - 08/03/2015 [facility] 36.0 gm/dL 11:27 AM [facility] RDW OP 12.3 11.5 - 08/03/2015 [facility] 14.5 % 11:27 AM [facility] PLATELET COUNT 227 150 - 400 08/03/2015 [facility] OP K/uL 11:27 AM CDT [facility] MPV OP 9.6 6.5 - 12.0 08/03/2015 [facility] 11:27 AM CDT [facility] Specimen Anatomical Collection Method / Collection Time Recei philipp Time (Source) Location / Volume Laterality Blood Venipuncture / 08/03/2015 11:20 201 6 Unknown AM CDT 11:20 AM CDT Jacques Alcantara MD HEMATOLOGY ORDERABLE Performing Organization Address City/State/ZIP Code Phon e Number [address] [phone] - [address] [address] [facility] (ABNORMAL) BASIC METAB PROFILE (08/03/2015 11:20 AM CDT) [facility] gist Method Time Signature SODIUM 137 136 - 145 08/03/2015 [facility] mMol/L 3:31 PM CDT LABORATORY POTASSIUM 3.6 3.5 - 5.1 08/03/2015 [facility] mMol/L 3:31 PM CDT LABORATORY CHLORIDE 108 98 - 112 08/03/2015 [facility] mMol/L 3:31 PM CDT LABORATORY CARBON DIOXIDE 21 21 - 32 08/03/2015 [facility] mMol/L 3:31 PM CDT LABORATORY BUN (UREA 11 7 - 24 08/03/2015 [facility] NITRO) mg/dL 3:31 PM CDT LABORATORY CREATININE 1.12 (H) 0.55 - 08/03/2015 [facility] 1.02 mg/dL 3:31 PM CDT LABORATORY EST GFR 53 (L) >60 mL/min 08/03/2015 [facility] (CKD-EPI) 3:31 PM CDT LABORATORY EST GFR IF >60 >60 mL/min 08/03/2015 [facility] AM 3:31 PM CDT LABORATORY GLUCOSE 138 (H) 74 - 106 08/03/2015 [facility] mg/dL 3:31 PM CDT LABORATORY CALCIUM, SERUM 8.2 (L) 8.5 - 10.1 08/03/2015 [facility] mg/dL 3:31 PM CDT LABORATORY ANION GAP 8.0 0.0 - 15.0 08/03/2015 [facility] mMol/L 3:31 PM CDT LABORATORY Specimen Anatomical Collection Method / Collection Time Recei philipp Time (Source) Location / Volume Laterality Blood Venipuncture / 08/03/2015 11:20 6 Unknown AM CDT 11:20 AM CDT Jacques Alcantara MD CHEMISTRY ORDERABLE Performing Organization Address City/State/ZIP Code Phon e Number [facility] [address] [place] [address] LABORATORY [facility] [address] [place], [place] [address] documented in this encounter Visit Diagnoses Diagnosis Preop cardiovascular exam - Primary Pre-operative cardiovascular examination Bronchospasm Acute bronchospasm Degeneration of intervertebral disc of l umbosacral region Snoring Other dyspnea and respiratory abnormalit y Bipolar affective disorder, remission st atus unspecified (HCC) Tobacco abuse Tobacco use disorder documented in this encounter Care Teams Geography Instructor Relationship Specialty Start Date End Date Jacques Alcantara MD PCP - General Family Medicine 12/15/12 [facility], [facility] - [facility] Clinic [facility] documented as of this encounter
--- OUTSIDE RECORDS SUMMARY | 2022-01-24 09:47 | XMS_ITS | Encounter Summary ---
:1975 Author Organization [facility] Address [address] [place] [address] Care Team Providers Name Role Phone Jacques Alcantara MD Primary Care Provider Unavailable [facility] Family [facility] Unavailable Unavailable Reason for Visit Reason Comments Dizziness x1 month Headache above right eye Encounter Details Date Type Department Care Team Description 07/12/2014 Office Visit [facility] Jacques Alcantara Si nus headache (Primary Dx); Clinic - [facility] Dizziness; [address] [place] [address] Marijuana use [place] [address] Social History Tobacco Use Types Packs/Day Years [...] Sign Reading Time Taken Comments Blood Pressure 112/62 07/12/2014 1:37 PM CAR WIPER Pulse 72 07/12/2014 1:37 PM CAR WIPER Temperature 37 ??C (98.6 ??F) 07/12/2014 1:37 PM CAR WIPER Respiratory Rate 16 07/12/2014 1:37 PM CAR WIPER Oxygen Saturation 98% 07/12/2014 1:37 PM CAR WIPER Inhaled Oxygen Concentration - - Weight 97.3 kg (214 lb 8 oz) 07/12/2014 1:37 PM CAR WIPER Height 157.5 cm (5' 2) 07/12/2014 1:37 PM CAR WIPER Body Mass Index 39.23 07/12/2014 1:37 PM CAR WIPER documented in this encounter Progress Notes Jacques Alcantara MD - 07/12/2014 2:08 PM CST SUBJECTIVE: 39 y.o. female for the following health concerns. Sinus headache - reports for the past month or more she has had a sinus headache, she reports that she will the get Dizziness - and it lasts the rest of the day. Denies any fever, chills or systemic symptoms. Denies any new medications other than cyclobenzaprine that she has been taking daily for her r ight shoulder strain. Discussed in generic terms today that she smells of marijuana and she does notdeny use. Denies any new numbness, tingling, change in mental status. Current Outpatient Prescriptions Medication Sig Dispense Refill ??? albuterol 90 mcg/actuation Inhl Aerosol 2 Puffs by Inhalation route every 4 (four) hours as needed. 1 Inhaler 2 ??? dextroamphetamine-amphetamine (ADDERALL XR) 10 mg Oral 24hr SR caps Take by mouth Twice a Day. ??? hydrocortisone 2.5% (HYTONE) Top cream Apply to skin twice a day as needed. 30 g 3 ??? hydrOXYzine pamoate (VISTARIL) 25 mg Oral Cap Take 1 Cap by mouth every 4 (four) hours as needed(nausea). 45 Cap 1 ??? LORazepam (ATIVAN) 0.5 mg Oral Tab Take 0.5 mg by mouth Twice a Day. ??? omeprazole (PRILOSEC) 20 mg Oral CpDR Take 1 Cap by mouth Once Daily. 30 Cap 1 ??? Ropinirole (REQUIP) 3 mg Oral Tab Take 3 mg by mouth Once Daily. 90 Tab 1 ??? sodium chloride 0.65% (SALINE NASAL MIST) 0.65 % Nasal [place] SprA Instill 1- 2 Sprays into EACH nare every 1 (one) hour as needed. 1 Bottle 11 ??? traZODone (DESYREL) 100 mg Oral Tab Take 200 mg by mouth at bedtime. ??? ziprasidone hcl (GEODON) 20 mg Oral Cap Take 40 mg by mouth Twice a Day. No current facility-administered medications for this visit. Allergies: Review of patient's allergies indicates no known allergies. No LMP recorded. Patient has had a hysterectomy. ROS: Feeling well. Neuro as above. No dyspnea or chest pain on exertion. No abdominal pain, change in bowel habits. No urinary tract symptoms. OBJECTIVE: The patient appears well, in NAD. BP 112/62 Pulse 72 Temp(Src) 98.6 ??F (37 ??C) (Oral) Resp 16 Ht 1.575 m (5' 2) Wt 97.297kg (214 lb 8 oz) BMI 39.22 kg/m2 SpO2 98% Neck supple. No adenopathy or thyromegaly. ISAC. EOMI, no scleral or conjunctival changes. Lungs are clear, good air entry, no wheezes, rhonchi or rales. S1 and S2 normal, no murmurs, regular rate and rhythm. Steady gait. Normal finger to nose testing. CN II - XII intact without focal deficit. Neg Romberg. ASSESSMENT/PLAN: Sinus headache - Plan: sodium chloride 0.65% (SALINE NASAL MIST) 0.65 % Nasal [place] SprA -reviewed with pt that smoke from whatever she may be smoking is likely contributing to her symptoms and stop smoking and start using nasal saline spray several times daily and continue to monitor. Reviewed no susan cations for abx at this time. Dizziness - Plan: sodium chloride 0.65% (SALINE NASAL MIST) 0.65 % Nasal [place] SprA - counseled pt on home Kin exercises. Discussed stop Flexeril today and stop marijuana use as below and continue tomonitor. Discussed reassuring exam. Marijuana use - discussed with pt cessation until symptoms have resolved. Pt to return if sx do not improve or worsen. sooner as needed. Total of 25 minutes spent with pt >50% on counseling and/or coordination of cares. Options for treatment and follow-up care were reviewed with the patient and/or guardian. Maria Del Rosario Servin and/or guardian engaged in the decision making process and verbalized understanding of the optionsdiscussed and agreed with the final plan. WIPER documented in this encounter Miscellaneous Notes Encounter Documentation - Judith Jon CMA - 07/12/2014 1:39 PM CAR WIPER Reviewed medications and pharmacy with pt she stated these are the current medications she is taking. KL WIPER documented in this encounter Plan of Treatment Not on filedocumented as of this encounter Visit Diagnoses Diagnosis Sinus headache - Primary Headache Dizziness Dizziness and giddiness Marijuana use Cannabis abuse, unspecified documented in this encounter Care Teams Naturopathic Physician Relationship Specialty Start Date End Date Jacques Alcantara MD PCP - General Family Medicine 12/15/12 [facility], PCP - Primary Care Clinic 3 09/16/17 [facility] documented as of this encounter
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
--- OUTSIDE RECORDS SUMMARY | 2022-01-24 09:47 | XMS_ITS | Encounter Summary ---
:1975 Author Organization [facility] Address [address] [place] [address] Care Team Providers Name Role Phone Jacques Alcantara MD Primary Care Provider Unavailable [facility] Unavailable Unavailable Encounter Details Date Type Department Care Team Description 02/16/2014 Surgery [facility] Vivian Chapa DPM [facility] [address] [place] OSTEOTOMY [address] [facility] [address] [place], [place] [address] [address] [place], [place] [phone] (Wo lawanda) Surgery Details Date/Time Status Location OR Service Patient Case Class Case Type Trauma Class Case? 02/16/14 7:15 Posted [facility] ORS 10 Podiatry Same Day AM Surgery Panel 1 Procedure LRB Anes Op Region Wound Class Commen ts RIGHT FOURTH METATARSAL OSTEOTOMY Right MAC Foot Cl vern (I) Surgeon Surgeon Role Service Panel Robert Chapa DPM Primary Podiatry 1 documented in this encounter Social History Tobacco Use Types Packs/Day Years Used Date Smoking Tobacco: Every Day Cigarettes 0.5 19 Smokeless Tobacco: Never Tobacco Cessation: Ready to Quit: No; Co unseling Given: Yes Alcohol Use Standard Drinks/Week Comments Yes 0.8 [...] Sign Reading Time Taken Comments Blood Pressure 127/84 02/16/2014 9:11 AM CDT Pulse 66 02/16/2014 9:11 AM CDT Temperature 36.5 ??C (97.7 ??F) 02/16/2014 8:12 AM CDT Respiratory Rate 16 02/16/2014 9:11 AM CDT Oxygen Saturation 97% 02/16/2014 9:11 AM CDT Inhaled Oxygen Concentration - - Weight 92.1 kg (203 lb) 02/13/2014 10:54 AM CDT Height 154.9 cm (5' 1) 02/13/2014 10:54 AM CDT Body Mass Index 38.36 02/13/2014 10:54 AM CDT documented in this encounter Discharge Instructions Discharge InstructionsFeli Lerma RN - 02/16/2014 9:16 AM CDT Smoking and second-hand smoke exposure: If you or anyone in your home smokes, we strongly recommend that you stop for your health and that of your family. Please talk with your health care provider about your best treatment options. No matter what your age or how long you've smoked, quitting will help you live longer. For further assistanceplease call the [employer] Helpline at 5-(996)-835-UKZX or go to their website [email or web address]. Contact your Primary Care Physician with any questions regarding your current medications. Written Material: Given Discharge instructions for general surgery or orthopedics, same day. Today you were given medicine for pain or sedation. This medicine can cause you to: ?? Be sleepy ?? Not think clearly ?? Feel less coordinated For 12 hours after receiving the medicine: ?? Have [...] swelling ?? Pain not relieved by medication ?? If extremity becomes cold, numb or discolored ?? Other: ?? Call 911 if symptoms are severe or life threatening documented in this encounter Medications at Time of Discharge Medication Sig Dispensed Refills Start Date End Date cyclobenzaprine (FLEXERIL) Take 1 Tab by 20 Tab 0 201204/26/2014 10 mg Oral TabIndications: mouth every 8 Strain of lumbar paraspinal (eight) hours as muscle needed for Muscle spasm (back pain). dextroamphetamine-amphetami Take by mouth 0 08/27/2016 ne (ADDERALL XR) 10 mg Oral Twice a Day. 24hr SR caps Fluorouracil (EFUDEX) 5 % Apply to skin 40 g 2 12/21/ 014 04/26/2014 Top cream Twice a Day. hydrocortisone 2.5% Apply to skin 30 g 3 06/08/2012 (HYTONE) Top twice a day as creamIndications: Eczema needed. hydrOXYzine pamoate Take 1 Cap by 45 Cap 1 02/16/2014 (VISTARIL) 25 mg Oral Cap mouth every 4 (four) hours as needed (nausea). LORazepam (ATIVAN) 0.5 mg Take 0.5 mg by 0 03/08/2015 Oral Tab mouth Twice a Day. traMADol (ULTRAM) 50 mg Take 1 Tab by 30 Tab 1 4 04/26/2014 Oral TabIndications: mouth every 6 Plantar wart of right foot (six) hours as needed for Pain. traZODone (DESYREL) 100 mg Take 200 mg by 0 01/25/2015 Oral Tab mouth at bedtime. ziprasidone hcl (GEODON) 20 Take 40 mg by 0 08/03/2015 mg Oral Cap mouth Twice a Day. documented as of this encounter Progress Notes Rae Isidro RN - 02/16/2014 6:29 AM CDT Pt will need crutch training post op documented in this encounter H&P Notes Scanned Doc - 02/13/2014 5:35 AM CDT documented in this encounter Consult Notes Jocelynn Caban PT - 02/16/2014 10:16 AM CDT Pt issued and fitted with crutches for purchase. Pt performed bed mobility, transfers and ambulationusing crutches with SBA. Pt compliant with NWB on R LE. Pt also instructed on stair climbing. Pt appeared to be doing well with crutches and will have someone available to assist her upon returning home. Both pt and stepfather expressed understanding of equipment and precautions with mobility. documented in this encounter Nursing Notes Flei Lerma RN - 02/16/2014 10:34 AM CDT Maria Del Rosario Servin [phone] P: Discharge A: Discharged via wheelchair to home at 1015 escorted by volunteer I: Discharge information and arrangements included: review of written discharge instructions, prescriptions sent with patient, crutches sent with the patient/family. Contact the pt @ home for post procedure call. Ok to leave message? Yes R:Patient, father expressed understanding of information.discharge delayed as physical therapy did not come until 1000. documented in this encounter OR Notes OR Surgeon - Robert Chapa DPM - 02/17/2014 9:53 AM CDT CC: Date of Service: 02/16/2014 SURGEON: Robert Chapa DPM HEALTH PROGRAM SPECIALIST: Dandy Ervin DPM PREOPERATIVE DIAGNOSES: 1. Metatarsalgia, right foot. 2. Soft tissue mass, right foot. POSTOPERATIVE DIAGNOSES: 1. Metatarsalgia, right foot. 2. Soft tissue mass, right foot. PROCEDURES: 1. Right fourth metatarsal osteotomy. 2. Excision of soft tissue mass, right foot. ANESTHESIA: Monitored with local. HEMOSTASIS: Pneumatic ankle tourniquet. ESTIMATED BLOOD LOSS: Minimal. COMPLICATIONS: None. PROCEDURE DETAIL: The patient was brought to the operating room and was placed on the table in a supine position. His foot was scrubbed, prepped and draped in the usual aseptic manner. An Esmarch bandage was used to exsanguinate the patient's foot and a tourniquet was inflated to 250 mmHg. Attention was directed to the dorsal aspect of the foot near the metatarsophalangeal joint. I created a linear incision directly over the fourth metatarsophalangeal joint. I bluntly reflected medially and laterally, exposing the metatarsophalangeal joint. I then created a dorsal capsulotomy. I opened the joint capsule, exposing the joint. I then created a Matias type oblique osteotomy from dorsal distal to plantar proximal. I shortened the osteotomy just a few millimeters. I reciprocally planed in thearea of the fourth metatarsal in order to elevate the bone slightly as well. Fixation was achieved with two 2 mm cortex bone screws. The area was irrigated with normal sterile saline and the capsule was closed with 4-0 Vicryl. Subcutaneous tissues were closed with 4-0 Vicryl and finally skin edges were closed with 4-0 Monocryl. Tincture and Steri-Strips were applied. Attention was now directed plantarly. There is a firm, nonmovable mass immediately lateral to the fourth metatarsal head. I completely excised this full-thickness. The incision measured approximately 1.5 cm x approximately 4 mm. I then irrigated this and I closed the skin edges here with 4-0 Prolene. The patient tolerated the above procedures as well as anesthesia well. The tourniquet was deflated with a prompt hyperemic response present to all digits. She was discharged in satisfactory condition with both written and oral postoperative instructions. Robert Chapa DPM /DY Dictation ID: [id number] OR Surgeon - Robert Chapa DPM - 02/16/2014 8:09 AM CDT POST OPERATIVE IMMEDIATE PREOPERATIVE DIAGNOSIS DX: METATARSALGIA RIGHT FOOT POSTOPERATIVE DIAGNOSIS same PROCEDURE Procedure(s): RIGHT FOURTH METATARSAL OSTEOTOMY Surgeon(s): Robert Chapa DPM Trimming Press Operator(s): Dandy Ervin DPM Other surgical staff (if any): Circulating nurse: Renée Buenrostro, RN; Valentina Scott RN cath lab technologist: Alecia Bellamy research food technologist: Shawna Leung; Wsetley Connolly Anesthesia MAC EBL: (not recorded) Drains Chest Tube 1 OR/PACU Output (ml): (not recorded) REJI Drain 1 OR/PACU Output (ml): (not recorded) Prosthetic Devices: none Specimen Removed No Complications: none Findings/Conclusions: Please see post-operative diagnosis Condition on discharge from OR: Satisfactory REPORT OF OPERATION/ PROCEDURE See dictated note. OR Surgeon - Robert Chapa DPM - 02/16/2014 6:42 AM CDT PRE-PROCEDURE NOTE CHIEF COMPLAINT / REASON FOR PROCEDURE: right foot pain History and Physical Reviewed: No changes in patient's medical status PRE-SEDATION ASSESSMENT: Previous reaction to anesthesia/sedation: No Sedation plan based on assessment: Moderate ASA Classification: II = Patient with mild systemic disease IMPRESSION: right foot metatarsalgia PLAN: right fourth metatarsal osteotomy with possible excision of right foot lesion documented in this encounter Plan of Treatment Scheduled Referrals Name Type Priority Associated Diagnoses Order S chedule Follow Up Follow Up Routine Ordered: 2013 documented as of this encounter Procedures Procedure Name Priority Date/Time Associated Diagnosis Comme nts XR C ARM EXTREMITY STAT 02/16/2014 7:52 AM Pain Res ults for this RT CDT procedure are i n the results section. OSTEOTOMY FOOT 02/16/2014 7:09 AM DX: METATARSALGIA CDT RIGHT FOOT documented in this encounter Results XR C ARM EXTREMITY RT (02/16/2014 7:52 AM CDT) Anatomical Region Laterality Modality Extremity Computed Radiography Specimen (Source) Anatomical Collection Method Collection Time Re ceived Time Location / / Volume Laterality 02/16/2014 7:58 AM CDT Impressions 02/16/2014 7:59 AM CDT IMPRESSION: ??Two images were captured off of the C-arm. ??The available images demonstrate placement of two internal fixation screws in the head of the right fourth metatarsal. ??The right fourth digit is in anatomic alignment. Narrative 02/16/2014 7:59 AM CDT EXAMINATION: ??Intraoperative right foot. ??02/16/2014 7:52 AM CLINICAL DATA: ??Surgical Repair / Reduc tion. ? COMPARISON: ??01/17/2014. TECHNIQUE: ??Intraoperative C-arm fluoro scopy was used for this procedure. ??Approximately 0 minutes and 2 seconds of fluoroscopy time was used. FINDINGS/ Procedure Note Diego Quintana MD - 02/16/2014Forma tting of this note might be different from the original. EXAMINATION: Intraoperative right foot. 02/16/2014 7:52 AM CLINICAL DATA: Surgical Repair / Reducti on. COMPARISON: 01/17/2014. TECHNIQUE: Intraoperative C-arm fluorosc opy was used for this procedure. Approximately 0 minutes and 2 seconds of fluoroscopy time was used. FINDINGS/ IMPRESSION: Two images were captured off of the C-arm. The available images demonstrate placement of two internal fixation screws in the head of the right fourth metatarsal. The right fourth digit is in anatomic alignment. Robert E Zelent DPM XRAY ORDERABLE documented in this encounter Visit Diagnoses Not on filedocumented in this encounter Administered Medications Inactive Administered Medications - up to 3 most recent administrations Medication Order MAR Action Action Date Dose Rate Site saline FLUSH syringe 5 mL Given 02/16/2014 6:28 AM CDT 10 mL 5 mL, Intravenous, NEEDED, Starting on Mikala 02/16/14 at 0550, Until Mikala 02/16/14 at 1633, Line Care bupivacaine 0.25% (MARCAINE) injection Given 02/16/2014 7:35 AM CDT 10 mL Proce dural INTRA-PROCEDURE NEEDED, Starting on Mikala 02/16/14 at 0735, Until Mikala 02/16/14 at 1633, Intra-Op documented in this encounter Active and Recently Administered Medications Times are shown in CDT. Scheduled Medication Order 02/14/2014 02/15/2014 02/16/2014 ceFAZolin 2 g IV syringe (OP) (COMPLETED) 07 (Given - Provider: Geovanny Restrepo) Intravenous, ONCE ON INDUCTION, 1 dose, Starting on Mikala 02/16/14 at 0550, Until Mikala 02/16/14 at 0721 Continuous Medication Order 02/14/2014 02/15/2014 02/16/2014 lactated ringers (LR) IV infusion 1,000 mL (CANCELED) 0705 (New Bag - Provider: Geovanny Restrepo)0810 (Anesthesia Volume Adjustment - Provider: Geovanny Restrepo) 1,000 mL, at 25 mL/hr, Intravenous, CONT INUOUS, Starting Mikala 02/16/14 at 0600, Until Mikala 02/16/14 at 0911 PRN Medication Order 02/14/2014 02/15/2014 02/16/2014 saline FLUSH syringe 5 mL (CANCELED) 0628 (Given - Provider: Rae Isidro RN) 5 mL, Intravenous, NEEDED, Starting T hu 02/16/14 at 0550, Until Mikala 02/16/14 at 1633, Line Care bupivacaine 0.25% (MARCAINE) injection (CANCELED) 0735 (Given - Provider: Robert Chapa DPM) INTRA-PROCEDURE NEEDED, Starting Mikala 02/16/14 at 0735, Until Mikala 02/16/14 at 1633, Intra-Op, This medication has a Blackbox Warning. Click the formulary reference link for more information. documented in this encounter Care Teams Apprentice Carpenter Relationship Specialty Start Date End Date Jacques Alcantara MD PCP - General Family Medicine 12/15/12 [facility], PCP - Primary Care Clinic 3 09/16/17 [facility] documented as of this encounter
--- OUTSIDE RECORDS SUMMARY | 2022-01-24 09:47 | XMS_ITS | Encounter Summary ---
:1975 Author Organization [facility] Address [address] [place] [address] Care Team Providers Name Role Phone Jacques Alcantara MD Primary Care Provider Unavailable [facility] Unavailable Unavailable Reason for Referral (Routine) - Closed Specialty Diagnoses / Procedures Referred By Contact Refer red To Contact Diagnoses Endolymphatic hydrops, right Jacques Alcantara MD Procedures BASIC METAB PROFILE [id number] [place] [address] Referral ID Status Reason Start Date Expiration Date Visits Requ ested Visits Authorized [id number] Closed 08/08/2014 02/04/2015 1 1 Reason for Visit Reason Comments Syncope Ears, went to ent has note Encounter Details Date Type Department Care Team Description 08/08/2014 Office Visit [facility] Jacques Alcantara Endol ymphatic hydrops, right (Primary Dx); Clinic - Lashell Veliz MD Tobacco abuse [address] [place], [place] [id number] Social History Tobacco Use Types Packs/Day Years [...] Sign Reading Time Taken Comments Blood Pressure 102/72 08/08/2014 10:36 AM CDT Pulse 87 08/08/2014 10:36 AM CDT Temperature 36.8 ??C (98.2 ??F) 08/08/2014 10:36 AM CDT Respiratory Rate 16 08/08/2014 10:36 AM CDT Oxygen Saturation 97% 08/08/2014 10:36 AM CDT Inhaled Oxygen Concentration - - Weight 95.3 kg (210 lb) 08/08/2014 10:36 AM CDT Height 154.9 cm (5' 1) 08/08/2014 10:36 AM CDT Body Mass Index 39.68 08/08/2014 10:36 AM CDT documented in this encounter Progress Notes Jacques Alcantara MD - 08/08/2014 11:38 AM CDT SUBJECTIVE: 39 y.o. female for the following health concerns. Endolymphatic hydrops, right - pt had dizziness and referred to dizziness center - pt was seen by ENT and diagnosed with EH, she has papers stating that she needs to have her potassium 1 week after starting dyazide however she reports that she did receive any rx. She also has questions regarding medications she can continue to take prior to ECOG testing that sheis scheduled for. Current Outpatient Prescriptions Medication Sig Dispense Refill ??? albuterol 90 mcg/actuation Inhl Aerosol 2 Puffs by Inhalation route every 4 (four) hours as needed. 1 Inhaler 2 ??? dextroamphetamine-amphetamine (ADDERALL XR) 10 mg Oral 24hr SR caps Take by mouth Twice a Day. ??? hydrocortisone 2.5% (HYTONE) Top cream Apply to skin twice a day as needed. 30 g 3 ??? LORazepam (ATIVAN) 0.5 mg Oral Tab Take 0.5 mg by mouth Twice a Day. ??? omeprazole (PRILOSEC) 20 mg Oral CpDR Take 1 Cap by mouth Once Daily. 30 Cap 1 ??? Ropinirole (REQUIP) 3 mg Oral Tab Take 3 mg by mouth Once Daily. 90 Tab 1 ??? sodium chloride 0.65% (SALINE NASAL MIST) 0.65 % Nasal [place] SprA Instill 1- 2 Sprays into EACH [...] has had a hysterectomy. ROS: Feeling well. No dyspnea or chest pain on exertion. No abdominal pain, change in bowel habits. No urinary tract symptoms. Psych as above. OBJECTIVE: The patient appears well, in NAD. BP 102/72 Pulse 87 Temp(Src) 98.2 ??F (36.8 ??C) (Oral) Resp 16 Ht 1.549 m (5' 1) Wt 95.255 kg (210 lb) BMI 39.70 kg/m2 SpO2 97% ISAC. Lungs are clear, good air entry, no wheezes, rhonchi or rales. S1 and S2 normal, no murmurs, regular rate and rhythm. Psych - Judgment and mental status are OK today, patient has questionable insight. Mood is stable today. ASSESSMENT/PLAN: Endolymphatic hydrops, right - Plan: BASIC METAB PROFILE, personally called ENT and figured out thatthey had not sent the rx to her pharmacy and that they are sending it today. Counseled pt on her sheet of prep and medications to hold prior to her testing. Counseled on stopping ativan 48 hours prior to testing and that she takes daily and that she will likely withdrawal. She expressed her understanding. Counseled pt on tobacco abuse and cessation that she remains pre-contemplative for. Counseled on stopping for 48 hours prior to testing and we are unable to provided any nicotine patches. She expressedher understanding. Pt to return in sooner as needed. Total of 25 minutes [...] on filedocumented as of this encounter Results (ABNORMAL) BASIC METAB PROFILE (08/08/2014 10:55 AM CDT) Analysis Performed At Patho logist Time Signature SODIUM 139 136 - 145 08/08/2014 [facility] mMol/L 4:08 PM CDT LABORATORY POTASSIUM 4.2 3.5 - 5.1 08/08/2014 [facility] mMol/L 4:08 PM CDT LABORATORY CHLORIDE 106 98 - 112 08/08/2014 [facility] mMol/L 4:08 PM CDT LABORATORY CARBON DIOXIDE 29 21 - 32 08/08/2014 [facility] mMol/L 4:08 PM CDT LABORATORY BUN (UREA 8 7 - 24 08/08/2014 [facility] NITRO) mg/dL 4:08 PM CDT LABORATORY CREATININE 0.94 0.60 - 08/08/2014 [facility] 1.30 mg/dL 4:08 PM CDT LABORATORY EST GFR >60 >60 mL/min 08/08/2014 [facility] (CKD-EPI) 4:08 PM CDT LABORATORY EST GFR IF >60 >60 mL/min 08/08/2014 [facility] AM 4:08 PM CDT LABORATORY GLUCOSE 111 (H) 74 - 106 08/08/2014 [facility] mg/dL 4:08 PM CDT LABORATORY CALCIUM, SERUM 9.0 8.5 - 10.1 08/08/2014 [facility] 4:08 PM CDT LABORATORY ANION GAP 4.0 0.0 - 15.0 08/08/2014 [facility] mMol/L 4:08 PM CDT LABORATORY Specimen Anatomical Collection Method / Collection Time Recei philipp Time (Source) Location / Volume Laterality Blood Venipuncture / 08/08/2014 10:55 5 Unknown AM CDT 10:55 AM CDT Jacques Alcantara MD CHEMISTRY ORDERABLE Performing Organization Address City/State/ZIP Code Phon e Number [facility] [address] [place] [address] [facility] [address] [place] [phone] documented in this encounter Visit Diagnoses Diagnosis Endolymphatic hydrops, right - Primary Tobacco abuse Tobacco use disorder documented in this encounter Care Teams Hydraulic Miner Blasting Relationship Specialty Start Date End Date Jacques Alcantara MD PCP - General Family Medicine 12/15/12 [facility], PCP - Primary Care Clinic 3 09/16/17 [facility] documented as of this encounter
--- OUTSIDE RECORDS SUMMARY | 2022-01-24 09:47 | XMS_ITS | Encounter Summary ---
:1975 Author Organization [facility] Address [address] [place] [address] Care Team Providers Name Role Phone Jacques Alcantara MD Primary Care Provider Unavailable [facility] Unavailable Unavailable Reason for Referral (Routine) - Auth-No PA/Ref Req Specialty Diagnoses / Procedures Referred By Contact Refer red To Contact Diagnoses Bilateral low back pain, with sciatica presence unspecified Zeb Mckeon DO Procedures MRI SPINE LUMBAR W/O CONTRAST Referral ID Status Reason Start Date Expiration Date Visits V isits Requested Authorized [id number] Auth-No 12/26/2014 1 1 PA/Ref Req Reason for Visit Reason Comments Back pain Encounter Details Date Type Department Care Team Description 12/26/2014 Office Visit [facility] Linda Walker Shane Bi lateral low back [facility] M., DO pain, with sciatica [address] (Primary Dx) [place] [id number] Social History Tobacco Use Types Packs/Day Years [...] Sign Reading Time Taken Comments Blood Pressure 114/83 12/26/2014 9:33 AM CDT Pulse - - Temperature - - Respiratory Rate - - Oxygen Saturation - - Inhaled Oxygen Concentration - - Weight 94.9 kg (209 lb 4.8 oz) 12/26/2014 9:33 AM CDT Height 154.9 cm (5' 1) 12/26/2014 9:33 AM CDT Body Mass Index 39.55 12/26/2014 9:33 AM CDT documented in this encounter Progress Notes Zeb Mckeon, DO - 12/26/2014 10:09 AM CDT CC: CHIEF COMPLAINT: Low back pain with bilateral left greater than right leg pain and numbness and tingling. SUBJECTIVE: The patient is a 39-year-old female who presents today upon referral from Dr. Alcantara for evaluation of the above condition. The patient relates having problems with her back over the past ten years. She states that she broke her back at age 13 and states that she has had long-standing problems with her back. She relates that she had an epidural injection back in 2012 to help with some inflammation and thinks it may have helped for a little while. She relates the last MRI she had of her back was about two years ago. She relates left greater than right-sided low back pain as well as she relates pain and numbness that refers down primarily her left leg. She has recently proceeded with conservative measures and not seen significant improvement. She was referred to [facility] upon referral from Dr. Alcantara to further evaluate her ongoing back discomfort. She does state that she uses OTC NSAID as well as occasionally smokes pot to help diminish her lumbar discomfort. She again presents today for further evaluation. REVIEW OF SYSTEMS: A comprehensive review of systems is essentially negative except the musculoskeletal issue she sees us for today. Review of systems for low back pain consisting of red flags is also negative, showing no bowel or bladder problems, no saddle anesthesia, no pain at night, no fevers. PAST MEDICAL HISTORY, PAST SURGICAL HISTORY, ALLERGIES, SOCIAL HISTORY, FAMILY MEDICAL HISTORY AND MEDICATIONS: Available on the chart and reviewed. PHYSICAL EXAM: GENERAL: Shows the patient to be a 39-year-old female with overall healthy appearance, no apparent distress, alert and oriented x3, in appropriate mood. VITAL SIGNS: Blood pressure 114/83, height of 61 inches, weight of 290 pounds. MUSCULOSKELETAL: Examination towards the low back is as follows: The patient is able to walk with a nonantalgic gait. She shows adequate heel-toe strength, but toe walking does mildly exacerbate lumbarand SI discomfort bilaterally. Examination through the lumbar spine does show generalized spinal as well as left-sided paraspinal discomfort. There is left greater than right SI and inferior sacral discomfort. There is no gluteal discomfort. There is no greater trochanter discomfort. Motion of the lumbar spine is mostly full, but there is pain reproduced in the left greater than right lumbar region with all spinal motion. Examination in the seated position shows no pain with internal rotation of bilateral hips. Muscle strength in bilateral lower extremities is intact as well as sensation and reflexes are also intact. Distal pulses are palpable. Straight leg raise from the seated position with slouch is positive on the left, but negative on the right. Examination in the supine position showed leg lengths to be equal. Range of motion of bilateral hip is full and muscle strength is adequate. MARTA testing is negative bilaterally. Straight leg raise in the supine position is positive on the left, but negative on the right. There is no pain with pelvic/SI compression. ABDOMEN: Abdominal exam is benign. The abdomen is soft, nontender. No masses are palpated. No organomegaly or fascial defects are noted. HEART: Regular rate and rhythm. LUNGS: Clear to auscultation. NEUROLOGIC: Cranial nerves II through XII grossly intact. LYMPHATIC: No cervical, axillary or inguinal lymphadenopathy is noted. INTEGUMENT: Benign. IMAGING: X-rays personally reviewed today: Single AP view of the pelvis and two views of the lumbar spine are essentially normal showing no fracture or dislocation. Overall alignment is mostly appropriate. There appears to be no significant arthritic change through either hip joint and the hemipelvis is benign. The lumbar spine may show some mild degenerative disk disease at L5-S1 and there may be a very mild element of anterolisthesis of L5 on S1. No other abnormalities noted. Please see report forfull details. DIAGNOSES: 1. Low back pain with bilateral leg pain, left greater than right. 2. Lumbago with left lower extremity radicular type symptomatology with concern for discogenic/nerveroot/stenotic abnormality. 3. Lumbar degenerative disk, likely mild at L5-S1 with mild anterolisthesis of L5 on S1. 4. Lumbago with questionable left lower extremity radicular symptoms with nonimprovement with conservative measures and long-standing nature. PLAN: Discussed the following treatment protocol with the patient. 1. Discussed with the patient the etiology of her discomfort as well as examination and imaging. 2. Discussed with the patient that her x-rays show some very mild degenerative change, but in turn it is concerning based upon her long-standing discomfort and that she may have more significant issueswith her back, although it is very likely that she has a muscular/mechanical etiology. She also doesreproduce some questionable radicular symptomatology and one would be concerned for the possibility of nerve root issue or stenotic abnormality. We are going to have the patient obtain an MRI of her lumbar spine to further evaluate this. 3. The patient is instructed to continue to ice and medicate and modify activities to her back as best able. 4. We are going to see the patient back after her MRI. At that point, we will reevaluate her back, review her imaging results and adjust her treatment plan accordingly. Zeb Mckeon DO /LD Dictation ID: [id number] Zeb Mckeon DO - 12/26/2014 9:55 AM CDT This office note has been dictated. [id number] documented in this encounter Plan of Treatment Not on filedocumented as of this encounter Results MRI SPINE LUMBAR W/O [...] bulge has progressed on the left. Zeb MGio Mckeon DO MRI ORDERABLE XR 1V PELVIS/2V LUMBAR (12/26/2014 9:45 AM CDT) Anatomical Region Laterality Modality ABD/Pelvis, Spine Radiographic Imaging Specimen (Source) Anatomical Collection Method Collection Time Re ceived Time Location / / Volume Laterality 12/26/2014 10:33 AM CDT Impressions 12/26/2014 10:34 AM CDT IMPRESSION: 1. ??The bony pelvis is intact. Mild sac roiliac and pubic symphysis degenerative changes. 2. ??Minimal left greater than right deg enerative changes of the hips. 3. ??Mild degenerative anterolisthesis o f L5 on S1. No other significant lumbar spine pathology. Transitional L5 segment. Narrative 12/26/2014 10:34 AM CDT EXAMINATION: XR 1V PELVIS/2V LUMBAR ??12/26/2014 9:43 AM CLINICAL DATA : Lumbago Additional Data: None VIEWS: 3 FINDINGS/ Procedure Note Loki Julien MD - 12/26/2014F ormatting of this note might be different from the original. EXAMINATION: XR 1V PELVIS/2V LUMBAR 12/26 9:43 AM CLINICAL DATA : Lumbago Additional Data: None VIEWS: 3 FINDINGS/ IMPRESSION: 1. The bony pelvis is intact. Mild sacro iliac and pubic symphysis degenerative changes. 2. Minimal left greater than right degen erative changes of the hips. 3. Mild degenerative anterolisthesis of L5 on S1. No other significant lumbar spine pathology. Transitional L5 segment. Zeb Mckeon DO XRAY ORDERABLE documented in this encounter Visit Diagnoses Diagnosis Bilateral low back pain, with sciatica p resence unspecified - Primary Bilateral low back pain, with sciatica p resence unspecified documented in this encounter Care Teams Physical Science Technician Relationship Specialty Start Date End Date Jacques Alcantara MD PCP - General Family Medicine 12/15/12 [facility], PCP - Primary Care Clinic 3 09/16/17 [facility] documented as of this encounter
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
--- OUTSIDE RECORDS SUMMARY | 2022-01-24 09:47 | XMS_ITS | Encounter Summary ---
:1975 Author Organization [facility] Address [address] [place] [address] Care Team Providers Name Role Phone Jacques Alcantara MD Primary Care Provider Unavailable [facility] Unavailable Unavailable Reason for Referral (Routine) - Closed Specialty Diagnoses / Procedures Referred By Contact Refer red To Contact Diagnoses Visit for screening mammogram Jacques Alcantara [place] [address] [place] [address] Referral ID Status Reason Start Date Expiration Date Visits Requ ested Visits Authorized [id number] Closed 02/05/2015 08/04/2015 1 1 Reason for Visit (Routine) - Closed Specialty Diagnoses / Procedures Referred By Contact Refer red To Contact Diagnoses Visit for screening mammogram Jacques Alcantara [place] [address] [place] [address] Referral ID Status Reason Start Date Expiration Date Visits Requ ested Visits Authorized [id number] Closed 02/05/2015 08/04/2015 1 1 Encounter Details Date Type Department Care Team Description 02/15/2015 Hospital Encounter [facility] [address] [place] [address], [address] [place], [place] [address] Social History Tobacco Use Types [...] Tab by mouth 90 Tab 3 01/25/201512/09 &[id number]-ZQ-[id number] Once Daily. [id number] mg Oral TabIndications: Bilateral low back pain with left-sided sciatica LORazepam (ATIVAN) 0.5 mg Take 0.5 mg by mouth 0 03/08/2015 Oral Tab Twice a Day. sodium chloride 0.65% Instill 1-2 Sprays 1 Bottle 11 201412/02/2017 (SALINE NASAL MIST) 0.65 into EACH nare every % Nasal Rayne 1 (one) hour as SprAIndications: Sinus needed. [...] documented as of this encounter Progress Notes Mary Leslie PA-C - 02/15/2015 4:45 PM CDT Quick Note: Normal mammogram results. Pt to be notified by radiology. documented in this encounter Plan of Treatment Not on filedocumented as of this encounter Procedures Procedure Name Priority Date/Time Associated Diagnosis Comme nts MAMMO DIGITAL Routine 02/15/2015 8:48 AM Visit for screening R esults for this SCREENING BI CDT mammogram procedure are i n the results section. documented in this encounter Results MAMMO DIGITAL SCREENING BI (02/15/2015 8:48 AM CDT) Anatomical Region Laterality Modality Breast Bilateral Mammography Specimen (Source) Anatomical Collection Method Collection Time Re ceived Time Location / / Volume Laterality 02/15/2015 8:37 AM CDT Impressions 02/15/2015 9:11 AM CDT #[id number] - MAMMO DIGITAL SCREENING BI BILATERAL FIRST EVER DIGITAL SCREENING M AMMOGRAM WITH CAD: 02/15/2015 FINDINGS: There are scattered fibrogland ular elements in the both breasts. ?? Current study was also evaluated with a Computer Aided Detection (CAD) system. ?? No significant masses, calcifications, o r other findings are seen in either breast. ?? IMPRESSION: NEGATIVE There is no mammographic evidence of mal ignancy. A 1 year screening mammogram is recommended. ?? The patient will be notified of the resu lts by mail. ?? Santi Bradley M.D. ? agatha/sloane:02/15/2015 09:11:53 ?? letter sent: Normal Letter ?? Mammogram BI-RADS: 1 Negative Procedure Note Santi Bradley MD - 02/15/2015Form atting of this note might be different from the original. #[id number] - MAMMO DIGITAL SCREENING BI BILATERAL FIRST EVER DIGITAL SCREENING M AMMOGRAM WITH CAD: 02/15/2015 FINDINGS: There are scattered fibrogland ular elements in the both breasts. Current study was also evaluated with a Computer Aided Detection (CAD) system. No significant masses, calcifications, o r other findings are seen in either breast. IMPRESSION: NEGATIVE There is no mammographic evidence of mal ignancy. A 1 year screening mammogram is recommended. The patient will be notified of the resu lts by mail. Santi snider/zackrad:02/15/2015 09:11:53 letter sent: Normal Letter Mammogram BI-RADS: 1 Negative Jacques Alcantara MD MAMMO ORDERABLE documented in this encounter Visit Diagnoses Diagnosis Visit for screening mammogram Other screening mammogram documented in this encounter Care Teams Resident Care Supervisor Relationship Specialty Start Date End Date Jacques Alcantara MD PCP - General Family Medicine 12/15/12 [facility], P[facility] - Primary Care Clinic [facility] this encounter
--- OUTSIDE RECORDS SUMMARY | 2022-01-24 09:47 | XMS_ITS | Encounter Summary ---
:1975 Author Organization [facility] Address [address] [place] [address] Care Team Providers Name Role Phone Jacques Alcantara MD Primary Care Provider Unavailable [facility] Unavailable Unavailable Reason for Referral Consultation (Routine) - Closed Specialty Diagnoses / Procedures Referred By Contact Refer red To Contact Pain Management Diagnoses Bilateral low back pain, with sciatica presence unspecified Zeb Mckeon DO Referral ID Status Reason Start Date Expiration Date Visits V isits Requested Authorized [id number] Closed Specialty 01/08/2015 07/07/2015 1 1 Services Required Comments *ORDER FOR EPIDURAL STEROID INJECTION/PA IN MANAGMENT [facility] [address] [place] [address] [facility] [address] [place] [address] [facility] [address] [place] [address] EVAL LUMBAGO/SI PAIN W/ B/L LE RADIC L>R . LSPINE MRI W/ L5-S1 DDD, SPONDYLOSITHESIS W/ B/L L5-S1 FORMAINAL STENOSIS L>R. PLE ASE PROCEED W/ B/L L5 TF ISIDRO. Reason for Visit Reason Comments Test results (Imaging) Encounter Details Date Type Department Care Team Description 01/08/2015 Office Visit [facility] Linda Walker Shane Bi lateral low back Spine [facility] MDO Gio pain, with sciatica [address] (Primary Dx) [place] [id number] Social History Tobacco Use Types Packs/Day Years [...] Taken Comments Blood Pressure - - Pulse - - Temperature - - Respiratory Rate - - Oxygen Saturation - - Inhaled Oxygen Concentration - - Weight 94.8 kg (209 lb) 01/08/2015 10:45 AM CDT Height 154.9 cm (5' 1) 01/08/2015 10:45 AM CDT Body Mass Index 39.49 01/08/2015 10:45 AM CDT documented in this encounter Progress Notes Zeb Mckeon, DO - 01/08/2015 11:07 AM CDT CC: CHIEF COMPLAINT: Follow up low back pain with bilateral leg pain, left greater than right, follow upL-spine MRI. SUBJECTIVE: The patient is a 39-year-old female who presents today for followup of the above condition. I last saw the patient on December 26, 2014. At that time reviewed her history of having long-standing issues with her back, as well as having pain in her back going down both of her legs, more so on the left than on the right. Her examination appeared to reproduce more so left-sided radicular type symptomatology and in turn her x-rays did show some degenerative disk disease as well as some likely anterolisthesis of L5 and S1. There was concern for the possibility of discogenic/nerve root abnormality secondary to her longstanding improvement with conservative measures. The patient does state that her symptomatology is unchanged. She continues to relate pain going down her left leg more so than her right. She relates it bothers her with most activities and sometimes keeps her up at night. She hasbeen diligent with conservative measures. She presents today for followup and review of her imaging. PHYSICAL EXAMINATION: GENERAL: Shows the patient to be a 39-year-old female with overall healthy appearance, no apparent distress. VITAL SIGNS: Stable. MUSCULOSKELETAL: Examination of the low back is as follows: The patient is able to walk with a nonantalgic gait. She shows adequate heel-toe strength but toe walking does mildly exacerbate lumbar and SI discomfort bilaterally. Examination of the lumbar spine does show generalized spinal [...] extremities is intact as well as sensation reflexes are also intact. Distal pulses are palpable. Straight leg raise performed from the seated position with slouch appears to be positive on the left as well as minimally positive on the right. IMAGING: MRI personally reviewed today from December 28, 2014: MRI of the lumbar spine appears to showno significant discogenic/nerve root/stenotic abnormalities from L1-4. In turn, at L5-S1 there is noted to be degenerative disk disease as well as there is also noted to be likely grade 1 anterolisthesis of L5 on S1. In turn, there is also a broad-based disk bulge and although there is no definitive central stenosis or pre-S1 nerve root impingement, there is noted to be moderate to severe bilateral neural foraminal narrowing, greater on the left than on the right. No other abnormalities noted. Please see report for full details. DIAGNOSES: 1. Low back pain with bilateral leg pain, left greater than right. 2. Lumbago with bilateral sacroiliac pain and bilateral lower extremity radicular symptoms, left greater than right. 3. Lumbar degenerative disk disease, mild to moderate at L5-S1 with associated anterolisthesis of L5and S1 and associated centralized disk bulge leading to bilateral L5-S1 foraminal stenosis, moderateto severe in degree, left greater than right, with bilateral lower extremity radicular symptoms, left greater than right. PLAN: Discussed the following treatment protocol with the patient: 1. Discussed with the patient the etiology of her discomfort as well as examination and imaging. 2. Discussed with the patient that her MRI does show some degenerative disk disease and disk bulge at L5-S1, but in turn the combination of degenerative disk disease, anterolisthesis and disk bulge do not show any significant central stenosis or pre-S1 nerve root impingement but they do lead to significant foraminal stenosis at L5-S1 bilaterally and this is likely the etiology for her ongoing discomforts and leg pain, left greater than right. 3. Discussed with the patient that at some point, we are going to want to retrial some therapy to work on strengthening her back and see if this will help diminish her discomfort. Since she continues to relate leg pain and fairly significant symptomatology, we are going to have her trial a course of ISIDRO to see if this will help diminish her discomfort and allow her to return to more conservative treatments and be more diligent with PT/HEP going forward. 4. The patient will continue to ice and medicate and modify activities to her back as best able. 5. We are also going to set the patient up for a bilateral L5 transforaminal ISIDRO at [facility] in the near future. 6. We are going to see the patient back on an as needed basis. In turn, she is going to contact the clinic in approximately seven to ten days to provide us her ISIDRO response. Based upon that response wewill be hopeful to have her reengage in formal therapy and develop an HEP and proceed forward. Zeb Mckeon DO /CP Dictation ID: [id number] Zeb Mckeon DO - 01/08/2015 10:47 AM CDT This office note has been dictated. [id number] documented in this encounter Plan of Treatment Scheduled Referrals Name Type Priority Associated Diagnoses Order S [facility] REFERRAL PAIN CLINIC - Referral Routine Bilateral Low Back Pain, Ordered: 01/08/2015 OUTSIDE FACILITY With Sciatica Presence Unspecified documented as of this encounter Visit Diagnoses Diagnosis Bilateral low back pain, with sciatica p resence unspecified - Primary documented in this encounter Care Teams Railway Track Worker Relationship Specialty Start Date End Date Jacques Alcantara MD PCP - General Family Medicine 12/15/12 [facility], PCP - Primary Care Clinic 3 09/16/17 [facility] documented as of this encounter
--- OUTSIDE RECORDS SUMMARY | 2022-01-24 09:47 | XMS_ITS | Encounter Summary ---
:1975 Author Organization [facility] Address [address] [place] [address] Care Team Providers Name Role Phone Jacques Alcantara MD Primary Care Provider Unavailable [facility] Family Phy Unavailable Unavailable Reason for Visit Reason Comments Smoking cessation chantix works best. Encounter Details Date Type Department Care Team Description 07/17/2015 Office Visit [facility] Jacques Alcantara, Weston walker (Primary Dx); Clinic - [facility] Depression with anxiety [address] [place] [address] Social History Tobacco Use Types Packs/Day Years Used Date Smoking Tobacco: Every Day Cigarettes 0.5 19 Smokeless Tobacco: Never Tobacco Cessation: Ready to Quit: Yes Alcohol [...] Sign Reading Time Taken Comments Blood Pressure 128/74 07/17/2015 3:21 PM DISBURSING OFFICER Pulse 85 07/17/2015 3:21 PM DISBURSING OFFICER Temperature 36.9 ??C (98.5 ??F) 07/17/2015 3:21 PM DISBURSING OFFICER Respiratory Rate 16 07/17/2015 3:21 PM DISBURSING OFFICER Oxygen Saturation - - Inhaled Oxygen Concentration - - Weight 103.9 kg (229 lb) 07/17/2015 3:21 PM DISBURSING OFFICER Height 154.9 cm (5' 1) 07/17/2015 3:21 PM DISBURSING OFFICER Body Mass Index 43.27 07/17/2015 3:21 PM DISBURSING OFFICER documented in this encounter Progress Notes Jacques Alcantara MD - 07/17/2015 3:39 PM CST SUBJECTIVE: 40 y.o. female for the following health concerns. Smoker - states that mike worked and she had quit but with the tragedy of losing her cousins family all 4 in a fatal car crash she started back up again. Reports that she would like to try it again.States she would be interested in working with quit plan this time. Depression with anxiety -states she feeling better each day and remembering the good memories Current Outpatient Prescriptions Medication Sig Dispense Refill ??? albuterol 90 mcg/actuation Inhl Aerosol 2 Puffs by Inhalation route every 4 (four) hours as needed. 1 Inhaler 2 ??? dextroamphetamine-amphetamine (ADDERALL XR) 10 mg Oral 24hr SR caps Take by mouth Twice a Day. ??? DIAZEPAM ORAL Take by mouth. ??? gabapentin (NEURONTIN) 300 mg Oral Cap 2 caps TID. 180 Cap 2 ? ? Glucosamine &Lybriytaw-YZ-[id number] 698-867-52-0.5 mg Oral Tab Take 1 Tab by [...] 0.65% (SALINE NASAL MIST) 0.65 % Nasal [place] SprA Instill 1- 2 Sprays into EACH nare every 1 (one) hour as needed. 1 Bottle 11 ??? topiramate (TOPAMAX) 25 mg Oral Tab Take 75 mg by mouth at bedtime. ??? traZODone (DESYREL) 100 mg Oral Tab Take 300 mg by mouth at bedtime. ??? varenicline (CHANTIX) 1 mg Oral Tab Take 1 mg by mouth Twice a Day. 60 Tab 3 ??? ziprasidone hcl (GEODON) 20 mg Oral Cap Take 40 mg by mouth Twice a Day. No current facility-administered medications for this visit. Allergies: Review of patient's allergies indicates no known allergies. No LMP recorded. Patient has had a hysterectomy. ROS: Feeling well Respiratory symptoms none No dyspnea or chest pain on exertion. Psych issues as Above. OBJECTIVE: The patient appears well, in NAD. BP 128/74 mmHg Pulse 85 Temp(Src) 98.5 ??F (36.9 ??C) (Oral) Resp 16 Ht 1.549 m (5' 1) Wt103.874 kg (229 lb) BMI 43.29 kg/m2 ISAC. Lungs are clear, good air entry, no wheezes, rhonchi or rales. S1 and S2 normal, no murmurs, regular rate and rhythm. ASSESSMENT/PLAN: Smoker - Plan: varenicline (CHANTIX) 1 mg Oral Tab - counseled on quit plan and refilled chantix andcontinue to monitor. Depression with anxiety - reviewed continue to work with therapist as she has been and continue remembering family passing in a positive light moving forward with grieving. Pt to return if sx worsen or fail to improve, sooner as needed. Options for treatment and follow-up care were reviewed with the patient and/or guardian. Maria Del Rosario eKren [place] and/or guardian engaged in the decision making process and verbalized understanding of the optionsdiscussed and agreed with the final plan. URSING OFFICER documented in this encounter Plan of Treatment Not on filedocumented as of this encounter Visit Diagnoses Diagnosis Smoker - Primary Tobacco use disorder Depression with anxiety Dysthymic disorder documented in this encounter Care Teams Leather Seasoner Relationship Specialty Start Date End Date Jacques Alcantara MD PCP - General Family Medicine 12/15/12 [facility], PCP - Primary Care Clinic 3 09/16/17 [facility] [place] documented as of this encounter
--- OUTSIDE RECORDS SUMMARY | 2022-01-24 09:47 | XMS_ITS | Encounter Summary ---
:1975 Author Organization [facility] Address [address] [place] [address] Care Team Providers Name Role Phone Jacques Alcantara MD Primary Care Provider Unavailable [facility] Phy Unavailable Unavailable Reason for Visit Reason Comments Follow up 3 week post op right foot. S till having some pain with bending the toes. Encounter Details Date Type Department Care Team Description 03/08/2014 Office Visit [facility] Robert Chapa, Ent hesopathy of unspecified site (Primary Dx); Clinic - [place] [facility] Pain in limb [address] [place], [place] [address] [address] [place], [place] [phone] [address] Social History Tobacco Use Types Packs/Day Years [...] Taken Comments Blood Pressure - - Pulse 68 03/08/2014 11:03 AM CDT Temperature 36.7 ??C (98 ??F) 03/08/2014 11:03 AM CDT Respiratory Rate 18 03/08/2014 11:03 AM CDT Oxygen Saturation - - Inhaled Oxygen Concentration - - Weight 92.1 kg (203 lb) 03/08/2014 11:03 AM CDT Height 157.5 cm (5' 2) 03/08/2014 11:03 AM CDT Body Mass Index 37.13 03/08/2014 11:03 AM CDT documented in this encounter Progress Notes Robert Chapa DPM - 03/08/2014 11:55 AM CDT CC: SUBJECTIVE: The patient is a 38-year-old woman that presents to clinic today for followup. She states that she had a few stumbles since she was last in. She states that her dog stepped on her foot once. She states that she bumped her toe a couple times. She otherwise states that she is not taking any pain medications and there is nothing else unusual happening. PHYSICAL EXAMINATION: GENERAL: She is awake and alert. She is in no distress. EXTREMITIES: The skin is warm and dry. DP and PT pulses 1/4 with prompt capillary refill time. Sensation is intact. The dorsal incision is clean, closed, dry and intact. There is no erythema nor ecchymosis. The plantar incision remains intact. I removed the remaining sutures from the plantar incision.I did not challenge the repair. ASSESSMENT: Status post metatarsal osteotomy with excision of lesion. PLAN: I examined her foot and discussed a plan. I removed sutures. I advised that she keep the plantar incision covered with a Band-Aid and possibly bacitracin for the next week or two. I dispensed a Cam walker today. She can bear weight in the Cam walker as tolerated. She will return to clinic in two weeks. Robert Chapa DPM /NB Dictation ID: [id number] Robert Chapa DPM - 03/08/2014 11:36 AM CDT SEE DICTATION FOR DETAILS OF EXAMINATION AND PLAN documented in this encounter Plan of Treatment Not on filedocumented as of this encounter Visit Diagnoses Diagnosis Enthesopathy of unspecified site - Prima ry Pain in limb documented in this encounter Care Teams Produce Laborer Relationship Specialty Start Date End Date Jacques Alcantara MD PCP - General Family Medicine 12/15/12 [facility], [facility] Primary [facility] documented as of this encounter
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
--- OUTSIDE RECORDS SUMMARY | 2022-01-24 09:47 | XMS_ITS | Encounter Summary ---
:1975 Author Organization [facility] Address [address] [place] [address] Care Team Providers Name Role Phone Jacques Alcantara MD Primary Care Provider Unavailable [facility] Naina Unavailable Unavailable Reason for Referral Consultation (Routine) - Closed Specialty Diagnoses / Procedures Referred By Contact Refer red To Contact Otolaryngolgy/Facial Diagnoses Dizziness Eustachian tube dysfunction, bilateral Jacques Alcantara MD Head, [facility] [address] [place] [address] [address] [place] [address] Phone: Fax: Referral ID Status Reason Start Date Expiration Date Visits V isits Requested Authorized [id number] Closed Specialty 07/28/2014 01/24/2015 1 1 Services Required Comments Pt with worsening dizziness and ETD. Did not respond to Eply man or Meclizine. Reason for Visit Reason Comments Follow up Encounter Details Date Type Department Care Team Description 07/28/2014 Office Visit [facility] Jacques Alcantara Di zziness (Primary Dx); Clinic - [facility] Eustachian tube dysfunction, bilateral [address] [place], [place] [address] Social History Tobacco Use Types Packs/Day Years [...] Sign Reading Time Taken Comments Blood Pressure 116/68 07/28/2014 2:00 PM CDT Pulse 80 07/28/2014 2:00 PM CDT Temperature 36.7 ??C (98 ??F) 07/28/2014 2:00 PM CDT Respiratory Rate 16 07/28/2014 2:00 PM CDT Oxygen Saturation 98% 07/28/2014 2:00 PM CDT Inhaled Oxygen Concentration - - Weight 94.3 kg (208 lb) 07/28/2014 2:00 PM CDT Height 157.5 cm (5' 2) 07/28/2014 2:00 PM CDT Body Mass Index 38.04 07/28/2014 2:00 PM CDT documented in this encounter Progress Notes Jacques Alcantara MD - 07/28/2014 2:28 PM CDT SUBJECTIVE: 39 y.o. female for the following health concerns. Dizziness - states that she tried home eply maneuvers and the meclizine along with not using THC andsymptoms seem to have progressed. She continues to take all of her psych meds as prescribed and denies any changes. Reports that she feels lightheaded and dizzy however denies room spinning or passing out. Has not noticed a pattern but it is present all of the time waxing and waning in intensity. Eustachian tube dysfunction, bilateral - Pt states that both ears feel plugged for the past 2 years however reports that the R>L. Denies any ear pain. Current Outpatient Prescriptions Medication Sig Dispense Refill [...] 0.65% (SALINE NASAL MIST) 0.65 % Nasal [place] SprA Instill 1- 2 Sprays into EACH [...] has had a hysterectomy. ROS: Feeling well other than above. No dyspnea or chest pain on exertion. No abdominal pain, change in bowel habits. No urinary tract symptoms. Neuro as above. OBJECTIVE: The patient appears in NAD. BP 116/68 Pulse 80 Temp(Src) 98 ??F (36.7 ??C) (Oral) Resp 16 Ht 1.575 m (5' 2) Wt 94.348kg (208 lb) BMI 38.03 kg/m2 SpO2 98% ENT ears normal. Large healthy appearing tonsils present bilaterally. Neck supple. No adenopathy or thyromegaly. ISAC. EOMI CN II-XII intact no focal deficit. Romberg POSITIVE, normal gait, normal finger to nose. Psych - Judgment and mental status are clear today, patient has questionable insight. Mood is anxious. ASSESSMENT/PLAN: Dizziness - Plan: REFERRAL ENT - counseled pt that today's exam is concerning for positive Romberg test and referral to ENT dizziness and balance. Will consider referral to neuro dizziness and balance if ENT not successful. Reviewed that psych med could be contributing however these are managed by psych and will not adjust any meds at this time. Eustachian tube dysfunction, bilateral - Plan: REFERRAL ENT - counseled pt on ETD and smoking cessation to help with sx. Reviewed will refer to ENT for further eval as she remains pre contemplative forsmoking cessation Pt to return if unable to follow up with ENT or sx fail to improve, sooner as needed. Total of 25 minutes spent with pt >50% on counseling and/or coordination of cares. Options for treatment and follow-up care were reviewed with the patient and/or guardian. Maria Del Rosario Keren [place]burn and/or guardian engaged in the decision making process and verbalized understanding of the optionsdiscussed and agreed with the final plan. documented in this encounter Plan of Treatment Scheduled Referrals Name Type Priority Associated Diagnoses Order S chedule REFERRAL ENT Referral Routine Dizziness Ordered: 07/28/2014 Eustachian tube dysfunction, bilateral documented as of this encounter Visit Diagnoses Diagnosis Dizziness - Primary Dizziness and giddiness Eustachian tube dysfunction, bilateral documented in this encounter Care Teams Book Sewing Machine Operator Relationship Specialty Start Date End Date Jacques Alcantara MD PCP - General Family Medicine 12/15/12 [facility], PCP - Primary Care Clinic 3 09/16/17 [facility] documented as of this encounter
--- OUTSIDE RECORDS SUMMARY | 2022-01-24 09:47 | XMS_ITS | Encounter Summary ---
:1975 Author Organization [facility] Address [address] [place] [address] Care Team Providers Name Role Phone Jacques Alcantara MD Primary Care Provider Unavailable [facility] Unavailable Unavailable Reason for Visit Reason Comments Post op check Encounter Details Date Type Department Care Team Description 03/27/2014 Office Visit [facility] Vivian Chapa, DPM Pain in limb (Primary Clinic - [address] Sanchez) [address] [address] 2 [place], [place] [phone] (Wo rk) Social History Tobacco Use Types [...] Sign Reading Time Taken Comments Blood Pressure 106/82 03/27/2014 10:15 AM BODY JOINER Pulse 84 03/27/2014 10:15 AM BODY JOINER Temperature 36.9 ??C (98.4 ??F) 03/27/2014 10:15 AM BODY JOINER Respiratory Rate - - Oxygen Saturation - - Inhaled Oxygen Concentration - - Weight - - Height - - Body Mass Index - - documented in this encounter Progress Notes Robert Chapa DPM - 03/27/2014 10:38 AM CST SEE DICTATION FOR DETAILS OF EXAMINATION AND PLAN JOINER Robert Chapa DPM - 03/27/2014 10:36 AM CST CC: SUBJECTIVE: The patient is a 38-year-old woman who returns to clinic today for followup. She is now five weeks out of surgery. She reports doing reasonably well. She states that she is still wearing the Cam walker boot. She is still covering this daily. She does not really have much pain in the Cam walker boot at all. She otherwise has no other concerns. There is no fever, chills, nausea, vomiting, chest pain or shortness of breath. OBJECTIVE: GENERAL: She is awake and alert. She is in no distress. EXTREMITIES: The skin is warm and dry. DP and PT pulses are 1/4 with prompt capillary refill time. Sensation is intact. She has ability to dorsiflex and plantar flex the toes. There was some sensitivity to the plantar aspect right over the incision. There is no evidence for hyperkeratosis. There is noevidence for any ulceration here. There is no cellulitis. ASSESSMENT: Status post fourth metatarsal osteotomy with excision of lesion. PLAN: I examined her foot and discussed a plan. I dispensed a postop shoe for her to wear today. I want her to start wearing this instead of the Cam walker. I do not think that she needs to cover this anymore. I asked that she return to clinic in one month for followup. She is to call if there are anyother concerns. Robert Chapa DPM /DY Dictation ID: [id number] JOINER documented in this encounter Plan of Treatment Not on filedocumented as of this encounter Visit Diagnoses Diagnosis Pain in limb - Primary documented in this encounter Care Teams Block Setter Gypsum Relationship Specialty Start Date End Date Jacques Alcantara MD PCP - General Family Medicine 12/15/12 [facility], PCP - Primary Care Clinic 3 09/16/17 [facility] documented as of this encounter
--- OUTSIDE RECORDS SUMMARY | 2022-01-24 09:47 | XMS_ITS | Encounter Summary ---
:1975 Author Organization [facility] Address [address] [place] [address] Care Team Providers Name Role Phone Jacques Alcantara MD Primary Care Provider Unavailable [facility] Unavailable Unavailable Reason for Visit Reason Comments Cyst in groin area x 1 week. has popped it. Encounter Details Date Type Department Care Team Description 10/10/2015 Office Visit [facility] Jacques Alcantara, Ab scess or cellulitis (Primary Dx); Clinic - [facility] Cutaneous abscess of groin; [address] [place] [address] Spinal fu montse failure, sequela [place], [place] [address] Social History Tobacco Use Types [...] Sign Reading Time Taken Comments Blood Pressure 130/76 10/10/2015 1:40 PM CDT Pulse 80 10/10/2015 1:40 PM CDT Temperature 36.5 ??C (97.7 ??F) 10/10/2015 1:40 PM CDT Respiratory Rate 16 10/10/2015 1:40 PM CDT Oxygen Saturation - - Inhaled Oxygen Concentration - - Weight 105.5 kg (232 lb 9.6 oz) 10/10/2015 1:40 PM CDT Height 154.9 cm (5' 1) 10/10/2015 1:40 PM CDT Body Mass Index 43.95 10/10/2015 1:40 PM CDT documented in this encounter Progress Notes Jacques Alcantara MD - 10/10/2015 4:43 PM CDT SUBJECTIVE: 40 y.o. female for the following health concerns. Abscess or cellulitis - Cutaneous abscess of groin - reports 1 week of right groin pain. States she felt a bump the bump then expressed a bunch of liquid. Reports that a new bump formed yesterday that she could feel. States that it's tender to the touch and feels like it's going to express liquid. States she has been treating the area with warm packs and there has been no improvement. Currently is mihir lot of pain medication from a spinal fusion that had some complications with it. Denies any vaginal symptoms. Patient also has forms to be filled out today for disability parking. Current Outpatient Prescriptions Medication Sig Dispense Refill ??? albuterol 90 mcg/actuation Inhl Aerosol 2 Puffs by Inhalation route every 4 (four) hours as needed. 1 Inhaler 2 ??? albuterol HFA 90mcg/puff (PROAIR HFA) 90 mcg/actuation Inhl 2 Puffs by Inhalation route every 4 (four) hours as needed. 1 Inhaler 11 ??? cephalexin (KEFLEX) 500 mg oral capsule Take 1 Cap by mouth Twice a Day. 20 Cap 0 ??? dextroamphetamine-amphetamine (ADDERALL XR) 10 mg Oral 24hr SR caps Take by mouth Twice a Day. ??? DIAZEPAM ORAL Take by mouth. ??? gabapentin (NEURONTIN) 300 mg oral capsule 3 caps TID. 270 Cap 3 ? ? Glucosamine &Zkooukncj-ZW-Odg8 303-723-20-0.5 mg Oral Tab Take 1 Tab by [...] mouth Once Daily. 90 Cap 3 ??? oxyCODONE-acetaminophen (PERCOCET) 10-325 mg oral Tab Take 1-2 Tabs by mouth every 6 (six) hoursas needed (pain). ??? rOPINIRole (REQUIP) 3 mg Oral Tab Take 1 Tab by mouth Once Daily. 90 Tab 3 ??? sodium chloride 0.65% (SALINE NASAL MIST) 0.65 % Nasal [place] SprA Instill 1- 2 Sprays into EACH nare every 1 (one) hour as needed. 1 Bottle 11 ??? topiramate (TOPAMAX) 25 mg Oral Tab Take 75 mg by mouth at bedtime. ??? traZODone (DESYREL) 100 mg Oral Tab Take 300 mg by mouth at bedtime. ??? triamterene-hydrochlorothiazide 37.5 MG-25 MG (DYAZIDE) 37.5-25 mg oral Cap 6 ??? varenicline (CHANTIX) 1 mg Oral Tab Take 1 mg by mouth Twice a Day. 60 Tab 3 ??? VITAMIN D2 50,000 unit oral Cap 4 ??? ziprasidone hcl (GEODON) 40 mg oral Cap 2 No current facility-administered medications for this visit. Allergies: Review of patient's allergies indicates no known allergies. No LMP recorded. Patient has had a hysterectomy. ROS: Feeling in distress. Back pain as above. No abdominal pain, change in bowel habits. No urinary tract symptoms. SECURITY POLICE OFFICER ROS: normal menses, no abnormal bleeding, pelvic pain or discharge, no vaginal bleeding, no discharge or pelvic pain, she complains of right inguinal symptoms as above. OBJECTIVE: The patient appears altered BP 130/76 (BP Cuff Site: Left arm, BP Cuff Position: Sitting, BP Cuff Size: Regular adult) Pulse 80 Temp 97.7 ??F (36.5 ??C) (Oral) Resp 16 Ht 1.549 m (5' 1) Wt 105.5 kg (232 lb 9.6 oz) BMI 43.95 kg/m2 slurring speech. Back brace in place. Guarding with any movement. Needed assistance with getting up and laying back on the table. Abdomen soft without tenderness, guarding, mass or organomegaly. Vaginal exam right inguinal region. There is a 1 cm x 1 cm firm lesion under the skin with no overlying skin changes. No erythema pustular head or surrounding erythema appreciated. Tender to palpation able to palpate the posterior lesion and it is about 1 cm deep as well. There is a resolving pustule about 2 cm distal to the current tender region. This area is without erythema and no exudate appreciated today. ASSESSMENT/PLAN: Abscess or cellulitis -Cutaneous abscess of groin Plan: cephalexin (KEFLEX) 500 mg oral capsule - reviewed with patient that the lesion appears more indurated and fluctuant. Discussed that it does not appear to have a pustule or head associated with it. Reviewed that it is 1 cm x 1 cm in size and for this reason we would try to continue with warm packs and oral antibiotics. Counseled on antibiotic side effects and use of yogurt 3 times a day while taking antibiotics and for the weeks after taking the antibiotics. Discussed that if the lesion were to increase in size we will would then numbed the area and try to incise and drain but we'll continue to monitor at this time. Spinal fusion failure, sequela - filled out disability parking forms for patient today - see scans Pt to return if sx worsen or fail to improve, sooner as needed. . Options for treatment and follow-up care were reviewed with the patient and/or guardian. Maria Del Rosario Veliz Tujunga and/or guardian engaged in the decision making process and verbalized understanding of the optionsdiscussed and agreed with the final plan. documented in this encounter Plan of Treatment Not on filedocumented as of this encounter Visit Diagnoses Diagnosis Abscess or cellulitis - Primary Cellulitis and abscess of unspecified si te Cutaneous abscess of groin Cellulitis and abscess of trunk Spinal fusion failure, sequela documented in this encounter Care Teams Editorial Director Relationship Specialty Start Date End Date Jacques Alcantara MD PCP - General Family Medicine 12/15/12 [facility], PCP - Primary Care Clinic 3 [facility] documented as of this encounter
--- OUTSIDE RECORDS SUMMARY | 2022-01-24 09:47 | XMS_ITS | Encounter Summary ---
:1975 Author Organization [facility] Address [address] [place] [address] Care Team Providers Name Role Phone Jacques Alcantara MD Primary Care Provider Unavailable [facility] Unavailable Unavailable Reason for Referral Consultation (Routine) - Closed Specialty Diagnoses / Procedures Referred By Contact Refer red To Contact Sports Medicine Diagnoses Lumbar strain, initial encounter Jacques Alcantara MD [facility], [address] [place] [address] Referral ID Status Reason Start Date Expiration Date Visits V isits Requested Authorized [id number] Closed Specialty 04/26/2014 1 1 Services Required Comments Order Comment: Acute on chronic low back pain present for many years. [facility] Scheduling Instructions [facility] will be contacting you to schedule your appointment. If you have immediate needs or questions regarding this appointment please call [facility] at [phone]. ITALIST Reason for Visit Reason Comments Back pain Fall x2 days Encounter Details Date Type Department Care Team Description 04/26/2014 Office Visit [facility] Jacques Alcantara Lu mbar strain, initial encounter (Primary Dx); Clinic - [facility] Chronic lumbar pain [address] [place] [id number] Social History Tobacco Use Types Packs/Day Years [...] Sign Reading Time Taken Comments Blood Pressure 118/82 04/26/2014 11:00 AM HOSPITALIST Pulse 93 04/26/2014 11:00 AM HOSPITALIST Temperature 36.8 ??C (98.3 ??F) 04/26/2014 11:00 AM HOSPITALIST Respiratory Rate 16 04/26/2014 11:00 AM HOSPITALIST Oxygen Saturation 98% 04/26/2014 11:00 AM HOSPITALIST Inhaled Oxygen Concentration - - Weight 92.5 kg (204 lb) 04/26/2014 11:00 AM HOSPITALIST Height 157.5 cm (5' 2) 04/26/2014 11:00 AM HOSPITALIST Body Mass Index 37.31 04/26/2014 11:00 AM HOSPITALIST documented in this encounter Progress Notes Jacques Alcantara MD - 04/26/2014 11:49 AM CST SUBJECTIVE: 38 y.o. female for the following health concerns. Lumbar strain, initial encounter Pt reports slipping and re injuring her lower left back 2 days ago on top of chronic pain that never resolves in the same area. Pain does not radiate and is persistent waxing and waning in severity. Feels worse today than it did right after the fall. States she has taken OTC pain medications without relief. States in the past ultram has not helped her pain. She is status post metatarsal osteotomy with excision of lesion and wearing a hard sole shoe and hashad some slips however none like the fall 2 days ago. Reports pain is not radiating. Severe and persistent left lumbar, Denies any head injury or LOC. States she will be able to change to regular shoe soon and will be more steady on her feet. Chronic lumbar pain - reports that left lower back pain is chronic as well present for many years. States that it persists despite previous interventions and wonder what her intermediate project manager options are. Current Outpatient Prescriptions Medication Sig Dispense Refill ??? oxyCODONE-acetaminophen (PERCOCET) 5-325 mg Oral Tab Take 1-2 Tabs by mouth every four (4) to six (6) hours as needed for Pain. 30 Tab 0 ??? cyclobenzaprine (FLEXERIL) 10 mg Oral Tab Take 1 Tab by mouth As instructed per provider. Take three times daily for 3-4 days then as needed for muscle spasm 30 Tab 1 ??? oxyCODONE-acetaminophen (PERCOCET) 5-325 mg Oral Tab Take 1-2 Tabs by mouth every 4 (four) hoursas needed for Pain. 75 Tab 0 ??? traZODone (DESYREL) 100 mg Oral Tab Take 200 mg by mouth at bedtime. ??? dextroamphetamine-amphetamine (ADDERALL XR) 10 mg Oral 24hr SR caps Take by mouth Twice a Day. ??? LORazepam (ATIVAN) 0.5 mg Oral Tab Take 0.5 mg by mouth Twice a Day. ??? ziprasidone hcl (GEODON) 20 mg Oral Cap Take 40 mg by mouth Twice a Day. ??? albuterol 90 mcg/actuation Inhl Aerosol 2 Puffs by Inhalation route every 4 (four) hours as needed. 1 Inhaler 2 ??? omeprazole (PRILOSEC) 20 mg Oral CpDR Take 1 Cap by mouth Once Daily. 30 Cap 1 ??? Ropinirole (REQUIP) 3 mg Oral Tab Take 3 mg by mouth Once Daily. 90 Tab 1 ??? hydrocortisone 2.5% (HYTONE) Top cream Apply to skin twice a day as needed. 30 g 3 ??? hydrOXYzine pamoate (VISTARIL) 25 mg Oral Cap Take 1 Cap by mouth every 4 (four) hours as needed(nausea). 45 Cap 1 No current facility-administered medications for this visit. Allergies: Review of patient's allergies indicates no known allergies. No LMP recorded. Patient has had a hysterectomy. ROS: Feeling in distress No dyspnea or chest pain on exertion. No abdominal pain, change in bowel habits. No urinary tract symptoms. MSK as above. OBJECTIVE: The patient appears in moderate distress. BP 118/82 Pulse 93 Temp(Src) 98.3 ??F (36.8 ??C) (Oral) Resp 16 Ht 1.575 m (5' 2) Wt 92.534 kg (204 lb) BMI 37.30 kg/m2 SpO2 98% ISAC. Lungs are clear, good air entry, no wheezes, rhonchi or rales. S1 and S2 normal, no murmurs, regular rate and rhythm. MS: Back: -Inspection: no obvious deformity. -Palpation: no tenderness along the spinous processes, there is tenderness to palpation in the left lumbar paraspinous muscles and soft tissue. -ROM: full to flexion, limited extension with increase in symptoms, side bends and rotation are equivocal. -Strength: full and symmetrical to knee flexion, knee extension, hip flexion, hip adduction, hip abduction,ankle dorsiflexion, ankle plantarflexion. -Reflexes: patellar and achilles reflexes symmetrical and normal. -Special tests: straight leg raise produces no radiculopathy on the right but does produce radiculopathy on left ASSESSMENT/PLAN: Lumbar strain, initial encounter - Plan: oxyCODONE-acetaminophen (PERCOCET) 5- 325 mg Oral Tab, REFERRAL [facility], cyclobenzaprine (FLEXERIL) 10 mg Oral Tab - counseled pt on home exercises and use medications sparingly. Counseled on drug interactions especially reviewed flexeril andadderall. She expressed her understanding. Referral to back specialist to help with her acute on chronic symptoms. Reviewed no refills on narcotic meds. Chronic lumbar pain - concern that this patient has some drug seeking tendencies. Reviewed with her that narcotics are not a intermediate project manager solution for her chronic pain and referred her to a back specialist. Previous MRI conducted last year shows L5-S1 bulging disk otherwise reassuring. Pt to return if unable to follow up with back clinic. sooner as needed. Options for treatment and follow-up care were reviewed with the patient and/or guardian. Maria Del Rosario Servin and/or guardian engaged in the decision making process and verbalized understanding of the optionsdiscussed and agreed with the final plan. ITALIST documented in this encounter Miscellaneous Notes Encounter Documentation - Judith Jon CMA - 04/26/2014 10:59 AM HOSPITALIST Reviewed medications pt stated she was taking these and needs refills but some are narcotics will let PCP decide and refill. [place] ITALIST documented in this encounter Plan of Treatment Scheduled Referrals Name Type Priority Associated Diagnoses Order S chedule REFERRAL [facility] SPORT, Follow Up Routine Lumbar strain, initial Ordered: 04/26/2014 [facility] encounter documented as of this encounter Visit Diagnoses Diagnosis Lumbar strain, initial encounter - Prima ry Chronic lumbar pain Lumbago documented in this encounter Care Teams Pig Iron Loader Relationship Specialty Start Date End Date Jacques Alcantara MD PCP - General Family Medicine 12/15/12 [facility], PCP - Primary Care Clinic [facility]
--- OUTSIDE RECORDS SUMMARY | 2022-01-24 09:48 | XMS_ITS | Encounter Summary ---
:1975 Author Organization [facility] Address [address] [place] [address] Care Team Providers Name Role Phone Juan Jose Baxter PA-C [facility] [phone] Reason for Referral (Routine) - Closed Specialty Diagnoses / Procedures Referred By Contact Refer red To Contact Diagnoses Low back pain Juan Jose Baxter PA-C Procedures MRI SPINE LUMBAR W/O CONTRAST [address] [place], [place] [address] Referral ID Status Reason Start Date Expiration Date Visits Requ ested Visits Authorized [id number] Closed 10/28/2012 1 1 Reason for Visit (Routine) - Closed Specialty Diagnoses / Procedures Referred By Contact Refer red To Contact Diagnoses Low back pain Juan Jose Baxter PA-C Procedures MRI SPINE LUMBAR W/O CONTRAST [address] [place], [place] [address] Referral ID Status Reason Start Date Expiration Date Visits Requ ested Visits Authorized [id number] Closed 10/28/2012 1 1 Encounter Details Date Type Department Care Team Description 10/28/2012 Hospital Encounter Specialty [facility] Ariella ging - MRI [address] [place], [place] [address] Social History Tobacco Use Types Packs/Day Years Used Date Smoking Tobacco: Former Cigarettes 0.5 19 Smokeless Tobacco: Never Alcohol Use Standard Drinks/Week Comments Yes 0.8 (1 standard drink = 0.6 oz pure alco hol) very rare Alcohol Habits Answer Date Recorded How often do you have a drink containing alcohol? Not asked How many drinks containing alcohol do you have on a typical Not asked day when you are drinking? How often do you have six or more drinks on one occasion? No t asked Comment: very rare 06/23/2012 Sex Assigned at Date Recorded Not on file documented as of this encounter Medications at Time of Discharge Medication Sig Dispensed Refills Start Date End Date cyclobenzaprine Take 1 Tab by mouth 20 Tab 0 09/30/2012 04/26/2014 (FLEXERIL) 10 mg Oral every 8 (eight) TabIndications: Strain of hours as needed for lumbar paraspinal muscle Muscle spasm (back pain). Gabapentin 100 mg Oral Start one at bedtime 90 Tab 3 04/201311/18/2012 TabIndications: Low back after 2 nights take pain one twice a day and then 2 pills twice a day hydrocortisone 2.5% Apply to skin twice 30 g 3 013 01/25/2015 (HYTONE) Top a day as needed. creamIndications: Eczema LORazepam (ATIVAN) 0.5 mg Take 0.5 mg by mouth 0 03/08/2015 Oral Tab Twice a Day. nicotine (NICODERM CQ) 21 1 Patch by 14 Patch 2 09/30/2012 09/13/2013 mg/24 hr TD Transdermal route [id number]: Smoking DAILY - APPLY PATCH. ziprasidone hcl (GEODON) Take 40 mg by mouth 0 08/03/2015 20 mg Oral Cap Twice a Day. documented as of this encounter Progress Notes Juan Jose Baxter PA-C - 11/01/2012 7:57 AM CDT Quick Note: Please advise pt mri showing bulging disc in low back. I don't recommend surgery, tx options physical therapy, ?back epidural injection. If pt has not tried pt, can set up at [facility]. If pt wants to try the gabapentin for care home pain control as we discussed at last visit, I can send that to pharm too. Recheck 6 wks or so, (after physical therapy). PL documented in this encounter Plan of Treatment Not on filedocumented as of this encounter Procedures Procedure Name Priority Date/Time Associated Diagnosis Comme nts MRI SPINE LUMBAR Routine 10/28/2012 3:52 PM Low back pain Resu lts for this W/O CON CDT procedure are i n the results section. 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 ??This results in moderate bilateral foraminal stenosis at this level. Narrative 10/28/2012 4:21 PM CDT EXAM: MRI of the lumbar spine without contrast, October 28, 2012. ?? COMPARISON: ??None. CLINICAL HISTORY: ??Low back pain. TECHNIQUE: Sagittal T1, T2, fat saturate d T2, axial T1 and T2 weighted images were acquired of lumbar spine. FINDINGS: Five lumbar type vertebral bodies are pr esumed. There is minimal anterolisthesis of L5 o n S1 measuring 2 to 3 mm, secondary to bilateral spondylolytic defects at L5. ??The remainder of the lumbar spine alignment is anatomic. Vertebral body heights are well-maintain ed. ??Minor endplate degenerative marrow signal changes are seen at L5-S1. ??Degenerative changes are seen about the spondylitic defects. The conus appears unremarkable terminati ng at the L1-2 level. Findings at the specific interspace leve ls are as follows: L1-L2: ??The disc is normal. ??No spinal or neural foraminal stenosis. L2-L3: ??The disc is normal. ??No spinal or neural foraminal stenosis. L3-L4: ??The disc is normal. ??No spinal or neural foraminal stenosis. L4-L5: ??The disc is normal. ??No spinal or neural foraminal stenosis. ??Mild facet arthrosis. L5-S1: ??There is desiccation of the dis c. ??Mild broad-based posterior disc bulge flattens the ventral thecal sac. ??No spinal stenosis. ??Spondylolysis with minimal anterolisthesis as described above. ??Moderate facet arthrosis. ??Moderate bilateral foraminal stenosis due to a combination of the disc bulge, hypertrophic bony changes from the spondylitic defects facet arthrosis, and spondylolisthesis. Procedure Note Kraig Horne MD - 10/28/2012Format ting of this note might be different from the original. EXAM: MRI of the lumbar spine without co ntrast, October 28, 2012. COMPARISON: None. CLINICAL HISTORY: Low back pain. TECHNIQUE: Sagittal T1, T2, fat saturate d T2, axial T1 and T2 weighted images were acquired of lumbar spine. FINDINGS: Five lumbar type vertebral bodies are pr esumed. There is minimal anterolisthesis of L5 o n S1 measuring 2 to 3 mm, secondary to bilateral spondylolytic defects at L5. The remainder of the lumbar spine alignment is anatomic. Vertebral body heights are well-maintain ed. Minor endplate degenerative marrow signal changes are seen at L5-S1. Degenerative changes are seen about the spondylitic defects. The conus appears unremarkable terminati ng at the L1-2 level. Findings at the specific interspace leve ls are as follows: L1-L2: The disc is normal. No spinal or neural foraminal stenosis. L2-L3: The disc is normal. No spinal or neural foraminal stenosis. L3-L4: The disc is normal. No spinal or neural foraminal stenosis. L4-L5: The disc is normal. No spinal or neural foraminal stenosis. Mild facet arthrosis. L5-S1: There is desiccation of the disc. Mild broad-based posterior disc bulge flattens the ventral thecal sac. No spinal stenosis. Spondylolysis with minimal anterolisthesis as described above. Moderate facet arthrosis. Moderate bilateral foraminal stenosis due to a combination of the disc bulge, hypertrophic bony changes from the spondylitic defects facet arthrosis, and spondylolisthesis. 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 This results in moderate bilateral foraminal stenosis at this level. Juan Jose Baxter PA-C MRI ORDERABLE documented in this encounter Visit Diagnoses Diagnosis Low back pain Lumbago documented in this encounter Care Teams Powertrain Calibration Engineer Relationship Specialty Start Date End Date Juan Jose Baxter, PCP - General Physician Steam Trap Man 06/29/1212/14 SONYA Keyur Quinonez PCP - Primary Care Clinic 06/29/12 12/14/[address] [facility] [address] [place] [address] documented as of this encounter
--- OUTSIDE RECORDS SUMMARY | 2022-01-24 09:48 | XMS_ITS | Encounter Summary ---
:[address] [facility] Address [address] [place] [address] Care Team Providers Name Role Phone Jamal Lanier MD Primary Care Provider Unavailable [facility] Unavailable Reason for Referral Consultation (Routine) - Closed Specialty Diagnoses / Procedures Referred By Contact Refer red To Contact Psychiatry Diagnoses Bipolar disorder (HCC) Depression with anxiety Juan Jose Baxter PA-C [place] [address] [place], [place] [address] [place] [address] [address] [place] [address] Phone: Fax: Referral ID Status Reason Start Date Expiration Date Visits V isits Requested Authorized [id number] Closed Specialty 06/08/2012 12/05/2012 4 4 Services Required Comments [facility] and Associated for counseling BONDSMAN Reason for Visit Reason Comments Rx refill med refill and renewal Encounter Details Date Type Department Care Team Description 06/08/[address] [facility] Juan Jose Baxter Bi polar disorder (HCC); Clinic - [facility] RLS (restless legs syndrome); [address] Depression with anxiety; [facility] [place] [address] [place], [place] Insomnia; [phone] Fungal infection of skin; [phone] Eczema; (Work) Bronchospasm Social History Tobacco Use Types Packs/Day Years Used Date Smoking Tobacco: Every Day Cigarettes 0.5 19 Smokeless Tobacco: Never Alcohol Use Standard Drinks/Week Comments Not Asked 0 (1 standard drink = 0.6 oz pure alcoho l) Sex Assigned at Date Recorded Not on file documented as of this encounter Last Filed Vital Signs Vital Sign Reading Time Taken Comments Blood Pressure 120/80 06/08/2012 10:33 large cuff/left arm AM BAIL BONDSMAN Pulse - - Temperature - - Respiratory Rate - - Oxygen Saturation - - Inhaled Oxygen - - Concentration Weight 81.4 kg (179 lb 8 06/08/2012 10:33 oz) AM BAIL BONDSMAN Height 158.8 cm (5' 2.5) 06/08/2012 10:33 AM BAIL BONDSMAN Body Mass Index 32.31 06/08/2012 10:33 AM BAIL BONDSMAN documented in this encounter Progress Notes Juan Jose Baxter PA-C - 06/08/2012 11:07 AM CST CC: SUBJECTIVE: A new patient to myself here at the clinic. Was seeing Dr. Meneses at a different clinic and is changing. Apparently, her primary psychiatrist is retired and she has been shuffled around to a couple different providers but looking to find a different psychiatry group. She is in with her mom today. She has a long history of bipolar that seems to be fairly stable on the Topshokanx. She has had some depression issues and her mom is a little concerned that that has maybe worsened some, although she blames it more on the long winter and the weather and some illness to her sister. She tends to be sleeping fine with the Desyrel. She uses Requip for restless leg syndrome and very rare albuterol inhal er for bronchospasms. She continues to smoke. She had gained a lot of weight on Seroquel, so she also mentions a list of other meds that she has been on that either did not work or she had a side effect with. She presently feels stable with her bipolar. EXAMINATION: GENERAL: Alert, pleasant, no acute distress. LUNGS: Clear. HEART: Regular rate and rhythm, no murmur. ABDOMEN: Soft, nontender, no mass, organomegaly. EXTREMITIES: No leg swelling. SKIN: No rashes. PSYCHIATRIC: Pleasant, cooperative, good eye contact. A little bit aloof on answering questions but appropriate and pleasant. ASSESSMENT AND PLAN: See chart. Referred to [facility]. I think she needs to have an established psychiatry provider that she sees. In the past, she was being seen every three months until her psychiatrist retired and then she has been seen every month recently. If depression symptoms worsen before she gets in, I would like her to come back and discuss antidepressant therapy, which she is not interestedin at this time. Mom understands the treatment plan as does patient. Juan Jose Baxter PA-C /BB Dictation ID: [id number] BONDSMAN Juan Jose Baxter PA-C - 06/08/2012 11:06 AM CST See dict Maria Del Rosario was seen today for rx refill. Diagnoses and associated orders for this visit: Bipolar disorder - Topiramate (TOPAMAX) 50 mg Oral Tab; Take 1 Tab by mouth Once Daily. - REFERRAL PSYCHIATRY Rls (restless legs syndrome) - Ropinirole (REQUIP) 3 mg Oral Tab; Take 3 mg by mouth Once Daily. Depression with anxiety - REFERRAL PSYCHIATRY Insomnia - traZODone (DESYREL) 100 mg Oral Tab; Take 1 Tab by mouth at bedtime. Fungal infection of skin Eczema - hydrocortisone 2.5% (HYTONE) Top cream; Apply to skin twice a day as needed. Bronchospasm - ALBUTEROL INHL; 1-2 Puffs by Inhalation route every 4 (four) hours as needed. Other Orders - Discontinue: Topiramate (TOPAMAX) 50 mg Oral Tab; Take 1 Tab by mouth Once Daily. BONDSMAN documented in this encounter Plan of Treatment Scheduled Referrals Name Type Priority Associated Diagnoses [facility] Referral Routine Bipolar diso rder (HCC) Ordered: 06/08/2012 Depression with anxiety documented as of this encounter Visit Diagnoses Diagnosis Bipolar disorder (HCC) Bipolar disorder, unspecified RLS (restless legs syndrome) Restless legs syndrome (RLS) Depression with anxiety Dysthymic disorder Insomnia Insomnia, unspecified Fungal infection of skin Dermatomycosis, unspecified Eczema Contact dermatitis and other eczema, due to unspecified cause Bronchospasm Acute bronchospasm documented in this encounter Care Teams Egg Worker Relationship Specialty Start Date End Date Jamal Lanier MD PCP - General 11/22/10 [facility], PCP - Primary Care Clinic 06/28/12 [facility] documented as of this encounter
--- OUTSIDE RECORDS SUMMARY | 2022-01-24 09:48 | XMS_ITS | Encounter Summary ---
:1975 Author Organization [facility] Address [address] [place] [address] Care Team Providers Name Role Phone Jamal Lanier MD Primary Care Provider Unavailable [facility] Unavailable Unavailable Reason for Referral (Routine) - Closed Specialty Diagnoses / Procedures Referred By Contact Refer red To Contact Physical Therapy Diagnoses Low back pain Jamal Lanier [facility] AYSHA Guevara MD [address] [address] Phone: Fax: Referral ID Status Reason Start Date Expiration Date Visits Requ ested Visits Authorized [id number] Closed 01/06/2011 07/05/2011 1 1 Comments Low back pain Reason for Visit Reason Comments Referral request MRI Encounter Details Date Type Department Care Team Description 01/02/2011 Office Visit [facility] Jamal Lanier Low back pain (Primary Clinic - [facility] Guevara MD Dx) [address] [place] [address] Social History Tobacco Use Types Packs/Day Years Used Date Smoking Tobacco: Every Day Cigarettes 0.5 Smokeless Tobacco: Never Alcohol Use Standard Drinks/Week Comments Not Asked 0 (1 standard drink = 0.6 oz pure alcoho l) Sex Assigned at Date Recorded Not on file documented as of this encounter Last Filed Vital Signs Vital Sign Reading Time Taken Comments Blood Pressure 126/80 01/02/2011 10:35 AM CDT Pulse - - Temperature 37.1 ??C (98.8 ??F) 01/02/2011 10:35 AM CDT Respiratory Rate - - Oxygen Saturation - - Inhaled Oxygen Concentration - - Weight 95.3 kg (210 lb) 01/02/2011 10:35 AM CDT Height - - Body Mass Index 38.41 11/19/2010 2:21 PM CDT documented in this encounter Progress Notes Jamal Lanier MD - 01/02/2011 11:13 AM CDT Subjective: HPI This is a 35 yo female who sees a chiropractor for her low back issues, was told she needed an MRI, and this was not covered by her insurance. They will cover PT so she'd like to have that set up. No other new issues. Review of Systems Constitutional: Negative. HENT: Negative. Eyes: Negative. Respiratory: Negative. Cardiovascular: Negative. Gastrointestinal: Negative. Musculoskeletal: Positive for back pain. Skin: Negative. Hematological: Negative. Psychiatric/Behavioral: Negative. Objective: Physical Exam Nursing note and vitals reviewed. Constitutional: She is oriented. She appears well-developed and well-nourished. HENT: Head: Normocephalic and atraumatic. Cardiovascular: Normal rate, regular rhythm and normal heart sounds. Pulmonary/Chest: Effort normal. Musculoskeletal: Normal range of motion. Neurological: She is alert and oriented. Assessment/Plan: Maria Del Rosario was seen today for referral request. Diagnoses and associated orders for this visit: - Low back pain - Referral physical therapy: clotilde documented in this encounter Nursing Notes 01/02/2011 10:45 AM CDT >> ANNA BRIONES Mikala Jan 02, 2011 10:35 AM Maria Del Rosario Servin is a 35 y.o. female Patient presents with: Referral request - MRI BP 126/80 Temp(Src) 98.8 ??F (37.1 ??C) (Oral) Wt 210 lb (95.255 kg) There is no height on fileto calculate BMI. Anna Briones documented in this encounter Plan of Treatment Scheduled Referrals Name Type Priority Associated Diagnoses Order S chedule REFERRAL PHYSICAL THERAPY: Referral Routine Low back pain Ordered: 01/02/2011 CLOTILDE documented as of this encounter Visit Diagnoses Diagnosis Low back pain - Primary Lumbago documented in this encounter Care Teams Chief Of Anesthesiology Relationship Specialty Start Date End Date Jamal Lanier MD PCP - General 11/22/10 [facility], PCP - Primary Care Clinic 06/28/12 [facility] documented as of this encounter
--- OUTSIDE RECORDS SUMMARY | 2022-01-24 09:48 | XMS_ITS | Encounter Summary ---
:1975 Author Organization [facility] Address [address] [place] [address] Care Team Providers Name Role Phone Jacques Alcantara MD Primary Care Provider Unavailable [facility] Unavailable Unavailable Reason for Visit Reason Comments Foot pain sore on bottom Encounter Details Date Type Department Care Team Description 09/13/2013 Office Visit [facility] Jacques Alcantara, Ryan kruger of right Clinic - [facility] foot (Primary Dx) [address] [place] [address] Social History Tobacco Use Types Packs/Day Years [...] Sign Reading Time Taken Comments Blood Pressure 102/70 09/13/2013 10:40 AM CDT Pulse 80 09/13/2013 10:40 AM CDT Temperature 36.6 ??C (97.8 ??F) 09/13/2013 10:40 AM CDT Respiratory Rate 18 09/13/2013 10:40 AM CDT Oxygen Saturation 98% 09/13/2013 10:40 AM CDT Inhaled Oxygen Concentration - - Weight 93.2 kg (205 lb 8 oz) 09/13/2013 10:40 AM CDT Height 158.8 cm (5' 2.5) 09/13/2013 10:40 AM CDT Body Mass Index 36.99 09/13/2013 10:40 AM CDT documented in this encounter Progress Notes Jacques Alcantara MD - 09/13/2013 11:03 AM CDT SUBJECTIVE: 38 y.o. female for painful spot on bottom of right foot. States it looks like a callus. Denies any injury. Feels like a sharp pin is sticking her. Present for about a week. Denies any history of plantar warts. Pain is focal and does not radiate. Present with any palpation or weight bearing. Not present at rest. Current Outpatient Prescriptions Medication Sig Dispense Refill ??? predniSONE (DELTASONE) 20 mg Oral Tab Take 3 Tabs by mouth Once Daily. 9 Tab 0 ??? meloxicam (MOBIC) 7.5 mg Oral Tab Take 1-2 Tabs by mouth Once Daily. 60 Tab 1 ??? LORazepam (ATIVAN) 0.5 mg Oral Tab Take 0.5 mg by mouth Twice a Day. ??? ziprasidone hcl (GEODON) 20 mg Oral Cap Take 20 mg by mouth Twice a Day. ??? albuterol 90 mcg/actuation Inhl Aerosol 2 Puffs by Inhalation route every 4 (four) hours as needed. 1 Inhaler 2 ??? omeprazole (PRILOSEC) 20 mg Oral CpDR Take 1 Cap by mouth Once Daily. 30 Cap 1 ??? Ropinirole (REQUIP) 3 mg Oral Tab Take 3 mg by mouth Once Daily. 90 Tab 1 ??? traZODone (DESYREL) 100 mg Oral Tab Take 1 Tab by mouth at bedtime. 90 Tab 0 ??? hydrocortisone 2.5% (HYTONE) Top cream Apply to skin twice a day as needed. 30 g 3 ??? cyclobenzaprine (FLEXERIL) 10 mg Oral Tab Take 1 Tab by mouth every 8 (eight) hours as needed for Muscle spasm (back pain). 20 Tab 0 No current facility-administered medications for this visit. Allergies: Review of patient's allergies indicates no known allergies. No LMP recorded. Patient has had a hysterectomy. ROS: Feeling well other than above. No dyspnea or chest pain on exertion. Right foot pain as above. OBJECTIVE: The patient appears well, in NAD. BP 102/70 Pulse 80 Temp(Src) 97.8 ??F (36.6 ??C) (Oral) Resp 18 Ht 1.588 m (5' 2.5) Wt 93.214 kg (205 lb 8 oz) BMI 36.96 kg/m2 SpO2 98% ISAC. Psych - Judgment and mental status appear clear, patient appears to have reasonable insight. Mood isstable. Right foot with 0.5 cm plantar wart present over lateral foot pad proximal to the 4th digit.. Pain on palpation. Cryotherapy performed by Jacques Alcantara MD on 09/13/2013. PREPROCEDURE DIAGNOSIS: Plantar wart as above. POSTPROCEDURE DIAGNOSIS: Plantar wart as above. No anesthetic was used. Cryotherapy performed using liquid nitrogen and cryogun. 1 lesions were treated with 20 second freeze time. 2 freeze/thaw cycles performed. TISSUE REMOVED: none POST PROCEDURE STATUS:Stable COMPLICATIONS: none After cares reviewed with pt including likely blister formation and leave intact. Discussed with patient typical treatment regimen usually requires repeat treatments. ASSESSMENT/PLAN: Plantar wart of right foot - Plan: DESTRUCTION PREMALIGNANT LESION SINGLE - see procedure note above. Pt to return in 30 days if not fully resolved, sooner as needed. Options for treatment and follow-up care were reviewed with the patient and/or guardian. Maria Del Rosario Keren [place] and/or guardian engaged in the decision making process and verbalized understanding of the optionsdiscussed and agreed with the final plan. documented in this encounter Plan of Treatment Scheduled Orders Name Type Priority Associated Diagnoses Order S chedule DESTRUCTION PREMALIGNANT Procedures Routine Plantar wart of right Ordered: 09/13/2013 LESION SINGLE foot documented as of this encounter Visit Diagnoses Diagnosis Plantar wart of right foot - Primary Plantar wart documented in this encounter Care Teams Customer Service Consultant Relationship Specialty Start Date End Date Jacques Alcantara MD PCP - General Family Medicine 12/15/12 [facility], PCP - Primary Care Clinic 3 09/16/17 [facility] documented as of this encounter
--- OUTSIDE RECORDS SUMMARY | 2022-01-24 09:48 | XMS_ITS | Encounter Summary ---
:1975 Author Organization [facility] Address [address] [place] [address] Care Team Providers Name Role Phone Jacques Alcantara MD Primary Care Provider Unavailable [facility] Unavailable Unavailable Reason for Referral (Routine) - Closed Specialty Diagnoses / Procedures Referred By Contact Refer red To Contact Procedures Robert Chapa DPM Discharge Instructions [address] [place], [place] [address] Referral ID Status Reason Start Date Expiration Date Visits Requ ested Visits Authorized [id number] Closed 02/16/2014 08/15/2014 1 1 (Routine) - Closed Specialty Diagnoses / Procedures Referred By Contact Refer red To Contact Procedures Robert Chapa DPM Weight bearing [address] [place] [address] Dr [facility] [place] [address] Referral ID Status Reason Start Date Expiration Date Visits Requ ested Visits Authorized [id number] Closed 02/16/2014 08/15/2014 1 1 (Routine) - Closed Specialty Diagnoses / Procedures Referred By Contact Refer red To Contact Robert Chapa DPM Zelent, Mark E, DPM [address] [place] [address] Dr Mosher [address] [place] [address] [place] [address] Fax: Referral ID Status Reason Start Date Expiration Date Visits Requ ested Visits Authorized [id number] Closed 02/16/2014 08/15/2014 1 1 Question Answer Specify time frame for follow up? 1 Week (Routine) - Closed Specialty Diagnoses / Procedures Referred By Contact Refer red To Contact Procedures Robert Chapa DPM Discharge [address] [place] [address] [facility] [address], [place] [address] Referral ID Status Reason Start Date Expiration Date Visits Requ ested Visits Authorized [id number] Closed 02/16/2014 08/15/2014 1 1 Encounter Details Date Type Department Care Team Description 02/16/2014 Hospital Encounter [facility] Robert Chapa DPM Hospital Patient Care [address] [place] [address] Dr Arias [address] [place] [address] [place] [phone] (Wo rk) Social History Tobacco Use Types [...] live longer. For further assistanceplease call the [employer] Helpline at [phone] or go to their website [email or web address]. Contact your Primary Care Physician with any [...] % Apply to skin 40 g 2 014 04/26/2014 Top cream Twice a Day. [...] mobility. documented in this encounter Nursing Notes Feli Lerma RN - 02/16/2014 10:34 AM CDT Maria Del Rosario Servin 1975 [phone] P: Discharge A: Discharged via wheelchair to [...] of Service: 02/16/2014 SURGEON: Robert Chapa DPM EQUIPMENT SERVICE ENGINEER: Dandy Ervin DPM PREOPERATIVE DIAGNOSES: 1. Metatarsalgia, [...] instructions. Robert Chapa DPM /DY Dictation ID: [id number] OR Surgeon - Robert Chapa DPM - 02/16/2014 8:09 AM CDT POST OPERATIVE IMMEDIATE PREOPERATIVE DIAGNOSIS DX: METATARSALGIA RIGHT FOOT POSTOPERATIVE DIAGNOSIS same PROCEDURE Procedure(s): RIGHT FOURTH METATARSAL OSTEOTOMY Surgeon(s): Robert Chapa DPM Veneer Patcher(s): Dandy Ervin DPM Other surgical staff (if any): Circulating nurse: Renée Buenrostro, RN; Valentina Scott RN educational technologist: Alecia Bellamy dev technical mgr: Shawna Leung; Westley Connolly Anesthesia MAC EBL: (not recorded) Drains [...] in this encounter Visit Diagnoses Diagnosis Pain - Primary Generalized pain documented in this encounter Administered Medications Inactive Administered Medications - up to 3 most recent administrations Medication Order MAR Action Action Date Dose Rate Site saline FLUSH syringe 5 mL Given 02/16/2014 6:28 AM CDT 10 mL 5 mL, Intravenous, NEEDED, Starting on Mikala 02/16/14 at 0550, Until Mikala 02/16/14 at 1633, Line Care documented in this encounter Active and Recently Administered Medications Times are shown in CDT. Scheduled Medication Order 02/14/2014 02/15/2014 02/16/2014 ceFAZolin 2 g IV syringe (OP) (COMPLETED) 0721 (Given - Provider: Geovanny Restrepo) Intravenous, ONCE [...] mL (CANCELED) 0628 (Given - Provider: Rae Isidro, TEREZA) 5 mL, Intravenous, NEEDED, Starting T hu 02/16/14 at 0550, Until Mikala 02/16/14 at 1633, Line Care bupivacaine 0.25% (MARCAINE) injection (CANCELED) 0735 (Given - Provider: Robert Chapa DPM) INTRA-PROCEDURE NEEDED, Starting Mikala 02/16/14 at 0735, Until Mikala 02/16/14 at 1633, Intra-Op, This medication has a Blackbox Warning. Click the formulary reference link for more information. documented in this encounter Care Teams Executive [employer] Host Relationship Specialty Start Date End Date Jacques Alcantara MD PCP - General Family Medicine 12/15/12 [facility], PCP - Primary Care Clinic 3 09/16/17 [facility] [place] [facility] documented as of this encounter
--- OUTSIDE RECORDS SUMMARY | 2022-01-24 09:48 | XMS_ITS | Encounter Summary ---
:1975 Author Organization [facility] Address [address] [place] [address] Care Team Providers Name Role Phone Jacques Alcantara MD Primary Care Provider Unavailable [facility] Unavailable Unavailable Reason for Referral Consultation (Routine) - Closed Specialty Diagnoses / Procedures Referred By Contact Refer red To Contact Pain Management Diagnoses Spondylolisthesis at L5-S1 level Jacques Alcantara MD [facility] [address] [place] [address] [place] [phone] Phone: Fax: Referral ID Status Reason Start Date Expiration Date Visits V isits Requested Authorized [id number] Closed Specialty 10/25/2013 04/23/2014 1 1 Services Required Comments Please call the Interventional Pain Clin ic at [facility] to schedule an appointment. [phone]. 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 This results in moderate bilateral foraminal stenosis at this level. Reason for Visit Reason Comments Follow up Warts on bottom of right foot Encounter Details Date Type Department Care Team Description 10/25/2013 Office Visit [facility] Jacques Alcantara Plantar wart , right foot (Primary Dx); [facility] - MD Keren Need for Tda p vaccination; [facility] Spondylolisthesis at L5-S1 l [address] [address] Social History Tobacco Use Types Packs/Day Years [...] Sign Reading Time Taken Comments Blood Pressure 96/68 10/25/2013 8:51 AM CDT Pulse 99 10/25/2013 8:51 AM CDT Temperature 36.6 ??C (97.9 ??F) 10/25/2013 8:51 AM CDT Respiratory Rate 18 10/25/2013 8:51 AM CDT Oxygen Saturation 96% 10/25/2013 8:51 AM CDT Inhaled Oxygen Concentration - - Weight 91.2 kg (201 lb) 10/25/2013 8:51 AM CDT Height 158.8 cm (5' 2.5) 10/25/2013 8:51 AM CDT Body Mass Index 36.18 10/25/2013 8:51 AM CDT documented in this encounter Progress Notes Jacques Alcantara MD - 10/25/2013 9:41 AM CDT SUBJECTIVE: 38 y.o. female for follow up on right plantar wart treatment. Pain of wart is worsening. Wart is present of right foot pad just proximal to the 4th MTP. Painful with any manipulation. Has not resolved with extensive cryo x2. She is also having low back pain. History of lumbar vertebra fracture. States in the past has had steroid injection of lumbar spine and with worked well. Last one was ~ 1 year ago. She would like another injection. She also has questions about lidocaine patches to help with back pain. Pt is due for tdap - last given in 1997. Current Outpatient Prescriptions Medication Sig Dispense Refill ??? LORazepam (ATIVAN) 0.5 mg Oral Tab [...] No urinary tract symptoms. MSK as above. Right plantar wart as above. OBJECTIVE: The patient appears well, in NAD. BP 96/68 Pulse 99 Temp(Src) 97.9 ??F (36.6 ??C) (Oral) Resp 18 Ht 1.588 m (5' 2.5) Wt 91.173 kg (201 lb) BMI 36.15 kg/m2 SpO2 96% ISAC. 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 This results in moderate bilateral foraminal stenosis at this level. Right foot with Plantar wart 1cm in diameter present of foot pad just proximal to 4th MTP joint. Painful to any palpation. Hard and well circumscribed. Hyfrecation and curettage performed by Jacques Alcantara MD on 10/25/2013. PREPROCEDURE DIAGNOSIS: 1cm right foot plantar wart as above. POSTPROCEDURE DIAGNOSIS: 1 cm right foot plantar wart as above. 2 ml of 2% lidocaine without epi used with some bleeding at injection sites so the 1 ml of 1% lidocaine with epi was administered and bleeding stopped. Curettage with 4mm curette used to scrape to baseof lesion and healthy pink skin appreciated. Base hyfrecated without issue. TISSUE REMOVED: plantar wart as above using 4mm curette and hyfrecator. POST PROCEDURE STATUS:Stable COMPLICATIONS: none After cares reviewed with pt including aftercares was with soap and water. ASSESSMENT/PLAN: Plantar wart, right foot - Plan: lidocaine 2% injection (conc: 20 mg/mL) 2 mL, lidocaine 1%- epinephrine 1:100,000 (XYLOCAINE-EPINEPHRINE) injection, DESTRUCTION BENIGN LESIONS UP TO 14 - procedure note above. Need for Tdap vaccination - Plan: TDAP VACC 10 YRS AND OLDER - Immunization/Injection provided todayin clinic. Spondylolisthesis at L5-S1 level - Plan: REFERRAL INTERVENTIONAL PAIN CENTER - [place] - referred pt backot interventional pain clinic and will follow up once complete. Pt to return in 3-4 weeks to evaluate right foot and make sure was able to get in with IPC, sooner as needed. Options for treatment and follow-up care were reviewed with the patient and/or guardian. Maria Del Rosario Veliz [place] and/or guardian engaged in the decision making process and verbalized understanding of the optionsdiscussed and agreed with the final plan. Shirley Sanchez - 10/25/2013 8:58 AM CDT SUBJECTIVE: Maria Del Rosario complains of warts. They have been present for some time. Shirley Sanchez MA 8:58 AM 10/25/2013 documented in this encounter Plan of Treatment Scheduled Orders Name Type Priority Associated Diagnoses Order S chedule DESTRUCTION BENIGN Procedures Routine Plantar wart, right Or dered: 10/25/2013 LESIONS UP TO 14 foot Scheduled Referrals Name Type Priority Associated Diagnoses Order S chedule REFERRAL INTERVENTIONAL Referral Routine Spondylolisthesis at L5-S1 Ordered: PAIN CENTER - [place] level 10/25/2013 documented as of this encounter Visit Diagnoses Diagnosis Plantar wart, right foot - Primary Plantar wart Need for Tdap vaccination Need for prophylactic vaccination with c ombined [id number] (DTP) vaccine Spondylolisthesis at L5-S1 level Congenital spondylolisthesis documented in this encounter Administered Medications Inactive Administered Medications - up to 3 most recent administrations Medication Order MAR Action Action Date Dose Rate Site lidocaine 1%- epinephrine Given 10/25/2013 10:18 AM CDT Right Foot 1:100,000 (XYLOCAINE-EPINEPHRINE) injection Subcutaneous, ONCE, 1 dose, On Thu10/25/13 at 1000 lidocaine 2% injection (conc: 20 Given 10/25/2013 10:16 AM CDT 2 mL Right Foot mg/mL) 2 mL 2 mL, Intradermal, ONCE, 1 dose, On Thu10/25/13 at 1000 documented in this encounter Care Teams Systems Qa Analyst Relationship Specialty Start Date End Date Jacques Alcantara MD PCP - General Family Medicine 12/15/12 [facility], PCP - Primary Care Clinic 3 09/16/17 [facility] documented as of this encounter
--- OUTSIDE RECORDS SUMMARY | 2022-01-24 09:48 | XMS_ITS | Encounter Summary ---
:1975 Author Organization [facility] Address [address] [place] [address] Care Team Providers Name Role Phone Juan Jose Baxter PA-C Primary Care Provider Cristiano [facility] [place] Unavailable [phone] Reason for Referral (Routine) - Closed Specialty Diagnoses / Procedures Referred By Contact Refer red To Contact Diagnoses Bulging disc Juan Jose Baxter PA-C Procedures IR SPINAL-ISIDRO [address] [place], [place] [address] Referral ID Status Reason Start Date Expiration Date Visits Requ ested Visits Authorized [id number] Closed 11/01/2012 04/30/2013 1 1 Reason for Visit (Routine) - Closed Specialty Diagnoses / Procedures Referred By Contact Refer red To Contact Diagnoses Bulging disc Juan Jose Baxter PA-C Procedures IR SPINAL-ISIDRO [address] [place], [place] [address] Referral ID Status Reason Start Date Expiration Date Visits Requ ested Visits Authorized [id number] Closed 11/01/2012 04/30/2013 1 1 Encounter Details Date Type Department Care Team Description 11/03/2012 Hospital Encounter Interventional Radio logy [address] [place], [place] [address] Social History Tobacco Use Types [...] Sign Reading Time Taken Comments Blood Pressure 118/76 11/03/2012 1:25 PM CDT Pulse 71 11/03/2012 1:25 PM CDT Temperature - - Respiratory Rate - - Oxygen Saturation 98% 11/03/2012 1:25 PM CDT Inhaled Oxygen Concentration - - Weight - - Height - - Body Mass Index - - documented in this encounter Discharge Instructions Discharge InstructionsCyroslyn Cyr RN - 11/03/2012 1:34 PM CDT Today you were given an injection into your lumbar spine. You may remove the dressing in 12 hours. If the puncture site becomes red, warm to touch or has any drainage, notify the radiology department at [phone]. Please refer to your primary physician for any other medical questions you have. If you had a lower back injection, please do not drive today. You may continue with your prescribed medications. You may continue with your regular diet. If you are a diabetic, if blood sugar > 250 for more than 2 consecutive episodes or issues with your blood sugar contact your primary care physician Please fill out the PAIN LOG and let your ordering doctor know the results. Thank you for using [facility]. D/C Instructions ScanScanned Doc - 11/05/2012 7:37 AM CDT documented in this encounter Medications at Time [...] 09/30/2012 09/13/2013 mg/24 hr TD Transdermal route [id number]: Smoking DAILY - APPLY PATCH. ziprasidone hcl (GEODON) Take 40 mg by mouth 0 08/03/2015 20 mg Oral Cap Twice a Day. documented as of this encounter Progress Notes Elba Cyr RN - 11/03/2012 1:58 PM CDT GRAIN MERCHANDISER PROGRESS NOTE: P: Pain A: Pre ISIDRO patient reported 10/10 pain level to left leg and left buttock. I: ISIDRO done R: Post procedure patient reported pain decreased to 4/10 to left leg buttock. Patient given discharge information. Patient and verbalized understanding of information. Discharged ambulatory to . documented in this encounter Procedure Notes Santi Williamson MD - 11/03/2012 1:45 PM CDT INTERVENTIONAL RADIOLOGY PROCEDURE: 1. ISIDRO PRELIMINARY FINDINGS: 1. Left L5-S1 ISIDRO performed without complication(numbering system used on recent MRI utilized to label today's treatment level). DICTATED REPORT TO FOLLOW documented in this encounter Plan of Treatment Not on filedocumented as of this encounter Procedures Procedure Name Priority Date/Time Associated Diagnosis Comme nts IR ISIDRO LUMBAR Routine 11/03/2012 1:45 PM Bulging disc Results for this CDT procedure are i n the results section . documented in this encounter Results IR SPINAL-ISIDRO (11/03/2012 1:45 PM CDT) Anatomical Region Laterality Modality X-Ray Angiography Specimen (Source) Anatomical Collection Method Collection Time Re ceived Time Location / / Volume Laterality 11/03/2012 1:46 PM CDT Impressions 11/03/2012 1:47 PM CDT IMPRESSION: Left L5 -- S1 transforaminal epidural steroid injection. ??Designation of the treatment level was based upon the numbering used on recent MRI 10/28/12. Narrative 11/03/2012 1:47 PM CDT EXAM: Lumbar ISIDRO. ?? DATE: 11/03/2012 1:18 PM. CLINICAL DATA: Low back pain with left r adiculopathy. PROCEDURES PERFORMED: Left L5 -- S1 liriano sforaminal epidural steroid injection. ANESTHESIA: Local. DESCRIPTION OF PROCEDURE: Risk, benefits and alternatives of the procedure were discussed in full detail. ??The patient wished to proceed and informed consent was signed. Utilizing sterile technique and fluorosc opic guidance, a 22-gauge needle was advanced into the superior aspect of the left L5 -- S1 neural foramen. ??Epidurography was performed, demonstrating contrast outlining the exiting nerve root and ext ending into the intraspinal epidural space. Therapeutic dose of 3 cc of 0.5% Marcain e and 18 mg of Celestone was then administered via the needle. ??The needle was removed. ??No immediate complications were noted. Procedure Note Santi Williamson MD - 11/03/2012For matting of this note might be different from the original. EXAM: Lumbar ISIDRO. DATE: 11/03/2012 1:18 PM. CLINICAL DATA: Low back pain with left r adiculopathy. PROCEDURES PERFORMED: Left L5 -- S1 liriano sforaminal epidural steroid injection. ANESTHESIA: Local. DESCRIPTION OF PROCEDURE: Risk, benefits and alternatives of the procedure were discussed in full detail. The patient wished to proceed and informed consent was signed. Utilizing sterile technique and fluorosc opic guidance, a 22-gauge needle was advanced into the superior aspect of the left L5 -- S1 neural foramen. Epidurography was performed, demonstrating contrast outlining the exiting nerve root and extending into the intras jessie epidural space. Therapeutic dose of 3 cc of 0.5% Marcain e and 18 mg of Celestone was then administered via the needle. The needle was removed. No immediate complications were noted. IMPRESSION: Left L5 -- S1 transforaminal epidural steroid injection. Designation of the treatment level was based upon the numbering used on recent MRI 10/28/12. Juan Jose Baxter PA-C IR ORDERABLE documented in this encounter Visit Diagnoses Diagnosis Bulging disc Displacement of intervertebral disc, sit e unspecified, without myelopathy documented in this encounter Administered Medications Inactive Administered Medications - up to 3 most recent administrations Medication Order MAR Action Action Date Dose Rate Site 1% lidocaine/sodium Given 11/03/2012 1:47 PM 10 mL Other (Comment) bicarbonate 8.4% (buffered CDT lidocaine) 10 mL, Subcutaneous, INTRA-PROCEDURE ONE TIME DOSE NEEDED, 1 dose, Starting on Thu11/03/12 at 1346, Until Thu11/03/12 at 1347, per procedure betamethasone acetate-betamethasone sodium Given 11/03/2012 1:47 PM CDT 18 mg phosphate (CELESTONE SOLUSPAN) injection (conc: 6 mg/mL) 18 mg 18 mg (3 mL), Epidural, INTRA-PROCEDURE ONE TIME DOSE NEEDED, 1 dose, Starting on Thu11/03/12 at 1347, Until Thu11/03/12 at 1347, per procedure bupivacaine (PF) 0.5% (MARCAINE) injecti on 3 mL Given 11/03/2012 1:47 PM CDT 3 mL 3 mL, Epidural, INTRA-PROCEDURE ONE TIME DOSE NEEDED, 1 dose, Starting on Thu11/03/12 at 1347, Until Thu11/03/12 at 1347, per procedure iohexol (OMNIPAQUE) solution (conc: 240 mgI/mL) Given 11/03/2012 1:47 PM CDT 1 mL 1 mL 1 mL, Epidural, INTRA-PROCEDURE ONE TIME DOSE NEEDED, 1 dose, Starting on Thu11/03/12 at 1346, Until Thu11/03/12 at 1347, per procedure documented in this encounter Care Teams Burlap Bag Sewer Relationship Specialty Start Date End Date Juan Jose Baxter, PCP - General Physician Telephone Messenger 06/29/1212/14 SONYA Keyur [place] PCP - Primary Care Clinic 06/29/12 12/14/12 [place] [address] [place], [place] [address] documented as of this encounter
--- OUTSIDE RECORDS SUMMARY | 2022-01-24 09:48 | XMS_ITS | Encounter Summary ---
:1975 Author Organization [facility] Address [address] [place] [address] Care Team Providers Name Role Phone Jacques Alcantara MD Primary Care Provider Unavailable [facility] Unavailable Unavailable Reason for Visit Reason Comments Follow up Encounter Details Date Type Department Care Team Description 10/18/2013 Office Visit [facility] Jacques Alcantara, [facility] Clinic - [facility] foot (Primary Dx) [address] [place] [address] Social History Tobacco Use Types Packs/Day Years [...] Sign Reading Time Taken Comments Blood Pressure 98/66 10/18/2013 11:20 AM CDT Pulse 72 10/18/2013 11:20 AM CDT Temperature 36.7 ??C (98.1 ??F) 10/18/2013 11:20 AM CDT Respiratory Rate 16 10/18/2013 11:20 AM CDT Oxygen Saturation - - Inhaled Oxygen Concentration - - Weight 93.4 kg (206 lb) 10/18/2013 11:20 AM CDT Height 158.8 cm (5' 2.5) 10/18/2013 11:20 AM CDT Body Mass Index 37.08 10/18/2013 11:20 AM CDT documented in this encounter Progress Notes Jacques Alcantara MD - 10/18/2013 11:52 AM CDT SUBJECTIVE: 38 y.o. female for follow up on plantar wart. Reports still painful. States that blister formed after previous cryo treatment and now skin is sloughing off. It has only been 3 weeks since her last treatment. Denies any new lesions. Current Outpatient Prescriptions Medication Sig Dispense Refill [...] has had a hysterectomy. ROS: Feeling well. Skin lesion as above. OBJECTIVE: The patient appears well, in NAD. BP 98/66 Pulse 72 Temp(Src) 98.1 ??F (36.7 ??C) (Oral) Resp 16 Ht 1.588 m (5' 2.5) Wt 93.441 kg (206 lb) BMI 37.05 kg/m2 ISAC. Right foot with plant wart present. Skin continues to slough from previous cryo. Scraped off out layer so skin and painful warty lesion still present. ASSESSMENT/PLAN: Plantar wart of right foot - counseled pt will numb and treat with hyfrecation and curettage. Pt to return in 1+ weeks for treatment of wart sooner as needed. Options for treatment and follow-up care were reviewed with the patient and/or guardian. Maria Del Rosario Keren [place] and/or guardian engaged in the decision making process and verbalized understanding of the optionsdiscussed and agreed with the final plan. documented in this encounter Plan of Treatment Not on filedocumented as of this encounter Visit Diagnoses Diagnosis Plantar wart of right foot - Primary Plantar wart documented in this encounter Care Teams [employer] Relationship Specialty Start Date End Date Jacques Alcantara MD PCP - General Family Medicine 12/15/12 [facility], PCP - Primary Care Clinic 3 09/16/17 [facility] documented as of this encounter
--- OUTSIDE RECORDS SUMMARY | 2022-01-24 09:48 | XMS_ITS | Encounter Summary ---
:1975 Author Organization [facility] Address [address] [place] [address] Care Team Providers Name Role Phone Juan Jose Baxter PA-C Primary Care Provider Cristiano [facility] Unavailable [phone] Reason for Visit (Routine) - Closed Specialty Diagnoses / Procedures Referred By Contact Refer red To Contact Diagnoses Family history of ovarian cancer Abdominal pain, other specified site Juan Jose Baxter PA-C Procedures US PELVIS NO IVT-NON OB [address] [place], [place] [address] Referral ID Status Reason Start Date Expiration Date Visits Requ ested Visits Authorized [id number] Closed 06/23/2012 12/20/2012 1 1 Encounter Details Date Type Department Care Team Description 07/01/2012 Hospital Encounter [facility] - Ultrasound [address] [place], [place] [address] Social History Tobacco Use Types Packs/Day Years Used Date Smoking Tobacco: Every Day Cigarettes 0.5 19 Smokeless Tobacco: Never Alcohol Use Standard Drinks/Week Comments No 0 (1 standard drink = 0.6 oz pure alcoho l) very rare Alcohol Habits Answer Date Recorded [...] Sig Dispensed Refills Start Date End Date hydrocortisone 2.5% Apply to skin 30 g 3 06/08/2012 (HYTONE) Top twice a day as creamIndications: Eczema needed. Topiramate (TOPAMAX) 50 mg Take 1 Tab by 90 Tab 0 201209/30/2012 Oral TabIndications: mouth Once Daily. Bipolar disorder (HCC) documented as of this encounter Progress Notes Juan Jose Baxter PA-C - 07/05/2012 6:48 AM SANITATION LABORER Quick Note: Please advise pt neg pelvic us. Ovaries normal. Pt was given the prilosec to try needs fu if stomach sxs cont. PL TATION LABORER documented in this encounter Plan of Treatment Not on filedocumented as of this encounter Procedures Procedure Name Priority Date/Time Associated Diagnosis Comme nts US PELVIS WITH Routine 07/01/2012 10:57 AM Family history of R esults for this IVT-NON OB SANITATION LABORER ovarian cancer procedure are in Abdominal pain, the results other specified site section . documented in this encounter Results US PELVIS WITH IVT-NON OB (07/01/2012 10:57 AM SANITATION LABORER) Anatomical Region Laterality Modality ABD/Pelvis Ultrasound Specimen (Source) Anatomical Collection Method Collection Time Re ceived Time Location / / Volume Laterality 07/01/2012 11:12 AM SANITATION LABORER Impressions 07/01/2012 11:13 AM SANITATION LABORER IMPRESSION: Surgically absent uterus. ??Normal ovari es. Narrative 07/01/2012 11:13 AM SANITATION LABORER EXAM: ??US PELVIS WITH IVT-NON OB ??07/01/2012 10:38 AM CLINICAL DATA: Family history of ovarian malignancy. ??Partial hysterectomy. COMPARISON: None. FINDINGS: ??Transabdominal and endovagin al pelvic ultrasound was performed. ??The uterus is surgically absent. ?? The right ovary measures 4.8 x 2.8 x 2.7 cm. ??The left ovary measures 2.0 x 3.4 x 2.5 ??cm. ??Normal follicular appearance and arterial/venous flow noted to both ovaries. ?? No abnormal adnexal mass seen. ??No free pelvic fluid noted Procedure Note Yuko Kuhn MD - 07/01/2012Forma tting of this note might be different from the original. EXAM: US PELVIS WITH IVT-NON OB 3 10:38 AM CLINICAL DATA: Family history of ovarian malignancy. Partial hysterectomy. COMPARISON: None. FINDINGS: Transabdominal and endovaginal pelvic ultrasound was performed. The uterus is surgically absent. The right ovary measures 4.8 x 2.8 x 2.7 cm. The left ovary measures 2.0 x 3.4 x 2.5 cm. Normal follicular appearance and arterial/venous flow noted to both ovaries. No abnormal adnexal mass seen. No free pelvic fluid noted IMPRESSION: Surgically absent uterus. Normal ovaries . Juan Jose Baxter PA-C ULTRASOUND ORDERABLE documented in this encounter Visit Diagnoses Diagnosis Family history of ovarian cancer Family history of malignant neoplasm of ovary Abdominal pain, other specified site documented in this encounter Care Teams Gate Agent Relationship Specialty Start Date End Date Juan Jose Baxter, PCP - General Physician Leather Belt Maker 06/29/1212/14 SONYA Keyur Quinonez PCP - Primary Care Clinic 06/29/12 12/14/12 [place] [address] [place] [id number] documented as of this encounter
--- OUTSIDE RECORDS SUMMARY | 2022-01-24 09:48 | XMS_ITS | Encounter Summary ---
:1975 Author Organization [facility] Address [address] [place] [address] Care Team Providers Name Role Phone Jacques Alcantara MD Primary Care Provider Unavailable [facility] Unavailable Unavailable Reason for Referral Consultation (Routine) - Closed Specialty Diagnoses / Procedures Referred By Contact Refer red To Contact Softball Player / Podiatry Diagnoses Plantar wart of right foot Jacques Alcantara MD [facility] [address] [place] [address] [place] [address] Phone: Fax: Referral ID Status Reason Start Date Expiration Date Visits V isits Requested Authorized [id number] Closed Specialty 12/06/2013 06/04/2014 1 1 Services Required Comments Right plantar wart - post treatment x4 - previous treatment curettage and hyfrecation. Reason for Visit Reason Comments Warts Follow up Encounter Details Date Type Department Care Team Description 12/06/2013 Office Visit [facility] Jacques Alcantara Pl lianet wart of right Clinic - [facility] foot (Primary Dx) [address] [place] [address] Social History Tobacco Use Types Packs/Day Years [...] Sign Reading Time Taken Comments Blood Pressure 108/86 12/06/2013 12:07 PM CDT Pulse 70 12/06/2013 12:07 PM CDT Temperature 36.5 ??C (97.7 ??F) 12/06/2013 12:07 PM CDT Respiratory Rate 16 12/06/2013 12:07 PM CDT Oxygen Saturation 98% 12/06/2013 12:07 PM CDT Inhaled Oxygen Concentration - - Weight 92.1 kg (203 lb) 12/06/2013 12:07 PM CDT Height 157.5 cm (5' 2) 12/06/2013 12:07 PM CDT Body Mass Index 37.13 12/06/2013 12:07 PM CDT documented in this encounter Patient Instructions Patient InstructionsShirley Sanchez - 12/06/2013 12:22 PM CDT [facility] [place] [address] [facility], [address] [facility] [id number] [place] [address] - [place] [address] [place] [address] - [address] - [address] [place], [place] documented in this encounter Progress Notes Jacques Alcantara MD - 12/06/2013 1:06 PM CDT SUBJECTIVE: 38 y.o. female for evaluation of right plantar wart. It has been treated x4 - 1st 3 treatments were cry and most recent treatment with hyfrecation with curettage. Pt denies any foot pain however states that lesion is still present on bottom of right foot. Pain with deep palpation. Current Outpatient Prescriptions Medication Sig Dispense Refill ??? traMADol (ULTRAM) 50 mg Oral Tab Take 1 Tab by mouth every 6 (six) hours as needed for Pain. 30 Tab 1 ??? LORazepam (ATIVAN) 0.5 mg [...] or chest pain on exertion. Right foot as above. OBJECTIVE: The patient appears well, in NAD. BP 108/86 Pulse 70 Temp(Src) 97.7 ??F (36.5 ??C) (Oral) Resp 16 Ht 1.575 m (5' 2) Wt 92.08 kg (203 lb) BMI 37.12 kg/m2 SpO2 98% ISAC. Lungs are clear, good air entry, no wheezes, rhonchi or rales. S1 and S2 normal, no murmurs, regular rate and rhythm. No edema. Right foot - 1 cm lesion of lateral foot pad with tenderness to palpation. ASSESSMENT/PLAN: Plantar wart of right foot - Plan: REFERRAL PODIATRY: [place] [facility] - at this point discussed we have done some extensive treatment in clinic and reviewed that we could attempt another hyfrecation for this persistent wart however at this point recommend referral to podiatry. Pt to return if unable to follow up with podiatry. Options for treatment and follow-up care were reviewed with the patient and/or guardian. Maria Del Rosario Servin and/or guardian engaged in the decision making process and verbalized understanding of the optionsdiscussed and agreed with the final plan. Shirley Sanchez - 12/06/2013 12:07 PM CDT Maria Del Rosario Servin is a 38 y.o. female patient needing retreatment of wart(s). Shirley Sanchez [place] 12:07 PM 12/06/2013 documented in this encounter Plan of Treatment Scheduled Referrals Name Type Priority Associated Diagnoses Order S chedule REFERRAL PODIATRY: [place] Follow Up Routine Plantar wart of rig ht Ordered: 12/06/2013 PODIATRY SERVICE foot documented as of this encounter Visit Diagnoses Diagnosis Plantar wart of right foot - Primary Plantar wart documented in this encounter Care Teams Fire Extinguisher Installer Relationship Specialty Start Date End Date Jacques Alcantara MD PCP - General Family Medicine 12/15/12 [facility], PCP - Primary Care Clinic 3 09/16/17 [facility] documented as of this encounter
--- OUTSIDE RECORDS SUMMARY | 2022-01-24 09:48 | XMS_ITS | Encounter Summary ---
:1975 Author Organization [facility] Address [address] [place] [address] Care Team Providers Name Role Phone Jamal Lanier MD Primary Care Provider Unavailable [facility] Naina Unavailable Unavailable Reason for Visit Reason Comments Nutrition counseling Encounter Details Date Type Department Care Team Description 03/27/[address] [facility] [address] Obesity (Primary Dx); [facility] - [address] [place] [address] [place], [place] [phone] (Work) [phone] Social History Tobacco Use Types Packs/Day Years Used Date Smoking Tobacco: Every Day Cigarettes 1 Smokeless Tobacco: Never Alcohol Use Standard Drinks/Week Comments Not Asked 0 (1 standard drink = 0.6 oz pure alcoho l) Sex Assigned at Date Recorded Not on file documented as of this encounter Progress Notes Sonia Jones - 03/27/2011 9:19 AM CST Medical Nutrition Therapy Progress Note Reason for visit: Want some help to keep losing weight Expected Outcome: Lose 1/2 to 1 lb per week Patient's Concerns/Comments: I need to use normal foods that my whole family can eat too Objective Data: Has started to lose weight: Labs: LDL 150, Total cholesterol 215 Diet History: Was having about 500 roe breakfasts, 2 eggs 2 toast, Willing to cut down to 1 egg and 1 taost with her fruit and milk. Lunch ok, super will Watch her starch portions more carefully, and aim for 1/2 plate of vegetables Exercise History: Walk dog daily, would like to have son walk with her Meal Plan Prescription: 1600 calories Patient Stated Behavior Goals: 1.smaller breakfast of 400 caloreis and try Instant breakfsat 3-4 x week 2.Keep 2 planned snacks to only 200 roe each and post a snack sheet as a guide 3.Work up to 150 min of exercise per week Comments/Assessment: Is motivated at this time, Will need future support, her mom is helpful and MD very supportive Follow Up: Will see provider in 2-3 months Contact information given for questions or problems. Time spent providing Medical Nutrition Therapy: [address] POLICE OFFICER documented in this encounter Plan of Treatment Not on filedocumented as of this encounter Visit Diagnoses Diagnosis Obesity - Primary Obesity, unspecified Elevated cholesterol Pure hypercholesterolemia documented in this encounter Care Teams Street Supervisor Relationship Specialty Start Date End Date Jamal Lanier MD PCP - General 11/22/10 [facility], PCP - Primary Care Clinic [facility]12 [facility] documented as of this encounter
--- OUTSIDE RECORDS SUMMARY | 2022-01-24 09:48 | XMS_ITS | Encounter Summary ---
:[address] [facility] Address [address] [place] [address] Care Team Providers Name Role Phone Jamal Lanier MD Primary Care Provider Unavailable [facility], [facility] Unavailable Unavailable Reason for Referral (Routine) - Closed Specialty Diagnoses / Procedures Referred By Contact Refer red To Contact Diagnoses Multiple allergies Lulu Meneses MD Procedures RESPIRATORY ALLERGY PROFILE [address] [place] [address] Referral ID Status Reason Start Date Expiration Date Visits Requ ested Visits Authorized [id number] Closed 03/19/2011 09/15/[address]NAGEMENT TEACHER (Routine) - Closed Specialty Diagnoses / Procedures Referred By Contact Refer red To Contact Nutrition Diagnoses Obesity Lulu Meneses MD [facility] NUTRITIONAL [address] [place], [place] [address] [address] [place] [address] Phone: Referral ID Status Reason Start Date Expiration Date Visits V isits Requested Authorized [id number] Closed Specialty 03/19/2011 09/15/[address] MANAGEMENT TEACHER (Routine) - Closed Specialty Diagnoses / Procedures Referred By Contact Refer red To Contact Diagnoses Fatigue Lulu Meneses MD Procedures THYROID CASCADE [address] [place] [address] Referral ID Status Reason Start Date Expiration Date Visits Requ ested Visits Authorized [id number] Closed 03/19/2011 09/15/[address]NAGEMENT TEACHER Reason for Visit Reason Comments Physical Encounter Details Date Type Department Care Team Description 03/19/[address] [facility] Lulu Meneses Annu al physical exam (Primary Dx); [facility] Fatigue; [address] [place] [address] Snores; Gregory Obesity; [place], [place] [address] Multiple allergies [phone] Social History Tobacco Use Types Packs/Day Years Used Date Smoking Tobacco: Every Day Cigarettes 1 Smokeless Tobacco: Never Alcohol Use Standard Drinks/Week Comments Not Asked 0 (1 standard drink = 0.6 oz pure alcoho l) Sex Assigned at Date Recorded Not on file documented as of this encounter Last Filed Vital Signs Vital Sign Reading Time Taken Comments Blood Pressure 128/82 03/19/2011 12:36 PM FOREST MANAGEMENT TEACHER Pulse 80 03/19/2011 12:33 PM FOREST MANAGEMENT TEACHER Temperature 36.4 ??C (97.6 ??F) 03/19/2011 12:33 PM FOREST MANAGEMENT TEACHER Respiratory Rate - - Oxygen Saturation - - Inhaled Oxygen Concentration - - Weight 92.5 kg (204 lb) 03/19/2011 12:33 PM FOREST MANAGEMENT TEACHER Height 156.2 cm (5' 1.5) 03/19/2011 12:33 PM FOREST MANAGEMENT TEACHER Body Mass Index 37.92 03/19/2011 12:33 PM FOREST MANAGEMENT TEACHER documented in this encounter Patient Instructions Patient Ssgkjkabhelu02/09/2011 1:01 PM FOREST MANAGEMENT TEACHER 1. Return in two months for a recheck. 2. Meet with produce production team member, talk about diet. 3. Increase walking to 60 [address] MANAGEMENT TEACHER documented in this encounter Progress Notes Lulu Meneses MD - 03/19/2011 12:53 PM CST SUBJECTIVE: 35 y.o. female for annual routine Pap smear and checkup. Current outpatient prescriptions Medication Sig Dispense Refill ??? traZODone (DESYREL) 100 mg Oral Tab Take 100 mg by mouth at bedtime as needed. ??? Ropinirole (REQUIP) 3 mg Oral Tab Take 3 mg by mouth daily. 30 Tab 0 ??? hydrocortisone 2.5% (HYTONE) Top cream Apply to skin twice a day as needed. 30 g 3 ??? ALBUTEROL INHL 1-2 Puffs by Inhalation route. ??? aripiprazole (ABILIFY) 5 mg Oral Tab Take by mouth daily. Allergies: Review of patient's allergies indicates no known allergies. No LMP recorded. ROS: Feeling well. No dyspnea or chest pain on exertion. No abdominal pain, change in bowel habits, black or bloody stools. No urinary tract symptoms. PIECE PRESSER ROS: normal menses, no abnormal bleeding, pelvic pain or discharge, no breast pain or new or enlarging lumps on self exam. OBJECTIVE: The patient appears well, in NAD. BP 128/82 Pulse 80 Temp(Src) 97.6 ??F (36.4 ??C) (Oral) Ht 5' 1.5 (1.562 m) Wt 204 lb (92.534 kg) ENT normal. Neck supple. No adenopathy or thyromegaly. ISAC. Lungs are clear, good air entry, no wheezes, rhonchi or rales. S1 and S2 normal, no murmurs, regular rate and rhythm. No edema. Abdomen soft without tenderness, guarding, mass or organomegaly. BREAST EXAM: normal without suspicious masses, skin or nipple changes or axillary nodes, self-exam is taught and encouraged PELVIC EXAM: Not done. ASSESSMENT and PLAN: Maria Del Rosario was seen today for physical. Diagnoses and associated orders for this visit: Annual physical exam - GLUCOSE, METER (whole blood) - In Clinic - CBC (hgb,hct,wbc,rbc,plt) - In Clinic Fatigue - THYROID CASCADE Snores Obesity - REFERRAL CHIEF PASSENGER SHIP STEWARD/STEWARDESS Multiple allergies - Respiratory Allergy Profile Other Orders - Cancel: LIPID PROFILE - Fasting - traZODone (DESYREL) 100 mg Oral Tab; Take 100 mg by mouth at bedtime as needed. - LIPID PROFILE CASCADE FASTING - Respiratory Allergy Profile return annually or prn ST MANAGEMENT TEACHER documented in this encounter Nursing Notes 03/19/2011 12:30 PM CST >> DAFNE BECERRIL Wed Mar 19, 2011 12:32 PM Patient is here for a fasting physical with PAP. documented in this encounter Plan of Treatment Scheduled Referrals Name Type Priority Associated Diagnoses Order S chedule REFERRAL CHIEF PASSENGER SHIP STEWARD/STEWARDESS Referral Routine Obesity Ordere d: 03/19/2011 documented as of this encounter Procedures Procedure Name Priority Date/Time Associated Comments Diagnosis RESPIRATORY ALLERGY STAT 03/19/2011 1:12 PM Re sults for this PROFILE FOREST MANAGEMENT TEACHER procedure are i n the results section. RESPIRATORY ALLERGY Routine 03/19/2011 1:12 PM Multiple allerg ies Results for this PROFILE FOREST MANAGEMENT TEACHER procedure are i n the results section. LIPID PROFILE CASCADE STAT 03/19/2011 1:12 PM Results for this FASTING FOREST MANAGEMENT TEACHER procedure are i n the results section. THYROID CASCADE Routine 03/19/2011 1:12 PM Fatigue Result s for this FOREST MANAGEMENT TEACHER procedure are i n the results section. CBC Routine 03/19/2011 12:33 Annual physical Results for this (HGB,HCT,WBC,RBC,PLAT PM FOREST MANAGEMENT TEACHER exam proced ure are in ELET) the results section. GLUCOSE METER OP Routine 03/19/2011 12:32 Annual physical Resu lts for this PM FOREST MANAGEMENT TEACHER exam procedure are i n the results section. documented in this encounter Results (ABNORMAL) RESPIRATORY ALLERGY PROFILE (03/19/2011 1:12 PM FOREST MANAGEMENT TEACHER) [facility] gist Method Time Signature DUST: D. FARINAE <0.35 <=0.35 [facility] L kU/L LABORATORY DUST: D. <0.35 <=0.35 [facility] PTERONYSSINUS kU/L LABORATORY ANIMAL: CAT 0.99 (H) <=0.35 [facility] kU/L LABORATORY ANIMAL: DOG <0.35 <=0.35 [facility] kU/L LABORATORY ENVIR: COCKROACH <0.35 <=0.35 [facility] MOLD: ALTERNARIA <0.35 <=0.35 [facility] ALTERNATA kU/L LABORATORY MOLD: <0.35 <=0.35 [facility] ASPERGILLIUS kU/L LABORATORY FUMIGATUS MOLD: <0.35 <=0.35 [facility] CLADOSPORIUM kU/L LABORATORY HERBARUM TREE: BIRCH, <0.35 <=0.35 [facility] COMMON SILVER kU/L LABORATORY TREE: ELM <0.35 <=0.35 [facility] kU/L LABORATORY TREE: MAPLE, BOX <0.35 <=0.35 [facility] L ELDER kU/L LABORATORY TREE: [place] <0.35 <=0.35 [facility] kU/L LABORATORY TREE: RADHA, WHITE <0.35 <=0.35 [facility] kU/L LABORATORY TREE: [place] <0.35 <=0.35 [facility] L kU/L LABORATORY GRASS: [place] 1.21 (H) <=0.35 [facility] BLUE/ kU/L LABORATORY GRASS: [place] 1.51 (H) <=0.35 [facility] ([place]) kU/L LABORATORY GRASS: PATRICIA 0.97 (H) <=0.35 [facility] kU/L LABORATORY WEED: [place], <0.35 <=0.35 [facility] COMMON kU/L LABORATORY IGE 86.3 <=99.9 [facility] kU/L LABORATORY Comment: REFERENCE VALUES: IGE, KU/L ??Reference Ranges not established for ??children 2 - 10 yrs of age. Specimen (Source) Anatomical Collection Method Collection Time Re ceived Time Location / / Volume Laterality 03/19/2011 1:12 PM FOREST MANAGEMENT TEACHER Lulu Meneses MD CHEMISTRY ORDERABLE Performing Organization Address City/State/ZIP Code Phon e Number [facility] [address] [facility] [place] [address] LABORATORY [facility] [address] [place], [place] [address] (ABNORMAL) LIPID PROFILE CASCADE FASTING (03/19/2011 1:12 PM FOREST MANAGEMENT TEACHER) [facility] gist Method Time Signature SPECIMEN TYPE FASTING [facility] LABORATORY CHOLESTEROL 214 (H) <=199 [facility] mg/dL LABORATORY TRIGLYCERIDES 112 <=149 [facility] PROFILE mg/dL LABORATORY HDL CHOLESTEROL 42 40 - 60 [facility] mg/dL LABORATORY LDL CHOL, CALC 150 (H) <=100 [facility] mg/dL LABORATORY CHOL/HDL RATIO 5.1 (H) <=4.9 [facility] LABORATORY Comment: LDL CHOLESTEROL REFERENCE RANGES: ??(FOR PATIENTS W/O HEART DISEASE) ?<100 MG/DL = Optimal ?? 100-159 MG/DL = Borderline High ?>160 MG/DL = High Specimen (Source) Anatomical Collection Method Collection Time Re ceived Time Location / / Volume Laterality 03/19/2011 1:12 PM FOREST MANAGEMENT TEACHER Lulu Meneses MD CHEMISTRY ORDERABLE Performing Organization Address City/State/ZIP Code Phon e Number [facility] [address] [facility] [place] [address] [phone] LABORATORY [facility] LABORATORY [address] [place] [address] (ABNORMAL) RESPIRATORY ALLERGY PROFILE (03/19/2011 1:12 PM FOREST MANAGEMENT TEACHER) [facility] Method Time Signature DUST: D. FARINAE <0.35 <=0.35 [facility] L kU/L LABORATORY DUST: D. <0.35 <=0.35 [facility] PTERONYSSINUS kU/L LABORATORY ANIMAL: CAT 0.99 (H) <=0.35 [facility] kU/L LABORATORY ANIMAL: DOG <0.35 <=0.35 [facility] kU/L LABORATORY ENVIR: COCKROACH <0.35 <=0.35 [facility] L kU/L LABORATORY MOLD: ALTERNARIA <0.35 <=0.35 [facility] L ALTERNATA kU/L LABORATORY MOLD: <0.35 <=0.35 [facility] ASPERGILLIUS kU/L LABORATORY FUMIGATUS MOLD: <0.35 <=0.35 [facility] CLADOSPORIUM kU/L LABORATORY HERBARUM TREE: BIRCH, <0.35 <=0.35 [facility] COMMON SILVER kU/L LABORATORY TREE: ELM <0.35 <=0.35 [facility] kU/L LABORATORY TREE: MAPLE, BOX <0.35 <=0.35 [facility] L ELDER kU/L LABORATORY TREE: [place] <0.35 <=0.35 [facility] kU/L LABORATORY TREE: RADHA, WHITE <0.35 <=0.35 [facility] L kU/L LABORATORY TREE: [place] <0.35 <=0.35 [facility] L kU/L LABORATORY GRASS: [place] 1.21 (H) <=0.35 [facility] BLUE/ kU/L LABORATORY GRASS: [place] 1.51 (H) <=0.35 [facility] ([place]) kU/L LABORATORY GRASS: PATRICIA 0.97 (H) <=0.35 [facility] kU/L LABORATORY WEED: [place], <0.35 <=0.35 [facility] COMMON kU/L LABORATORY IGE 86.3 <=99.9 [facility] kU/L LABORATORY Comment: REFERENCE VALUES: IGE, KU/L ??Reference Ranges not established for ??children 2 - 10 yrs of age. Specimen (Source) Anatomical Collection Method Collection Time Re ceived Time Location / / Volume Laterality BLOOD SPECIMEN / 03/19/2011 1:12 PM Unknown FOREST MANAGEMENT TEACHER Lulu Meneses MD CHEMISTRY ORDERABLE Performing Organization Address City/State/ZIP Code Phon e Number [facility] [address] [place] [address] LABORATORY [facility] [address] [place] [address] THYROID CASCADE (03/19/2011 1:12 PM FOREST MANAGEMENT TEACHER) athologist Signature TSH CASCADE 2.91 0.45 - 4.50 [facility] uIU/mL LABORATORY TSH COMMENT [facility] LABORATORY Comment: Euthyroid. No further testing r ecommended. Specimen (Source) Anatomical Collection Method Collection Time Re ceived Time Location / / Volume Laterality Blood specimen BLOOD SPECIMEN / 03/19/2011 1:12 PM (specimen) Unknown FOREST MANAGEMENT TEACHER Lulu Meneses MD CHEMISTRY ORDERABLE Performing Organization Address City/[facility]/ZIP Code Phon e Number [facility] [address] [place] [address] [address] CBC (HGB,HCT,WBC,RBC,PLATELET) (03/19/2011 12:33 PM FOREST MANAGEMENT TEACHER) athologist Signature WBC OP 7.9 4.0 - 10.8 [facility] K/uL [facility] LYMPHOCYTES % OP 34.6 20 - 40 % [facility] MID % OP 4.8 0 - 20 % [facility] PMN % OP 60.6 50 - 75 % [facility] RBC OP 4.96 4.2 - 5.4 [facility] M/ul [facility] HGB OP 15.6 12 - 16 [facility] g/dL [facility] HCT OP 46.2 37 - 47 % [facility] MCV OP 93.2 80 - 99 fL [facility] MCH OP 31.5 26 - 32 pg [facility] MCHC OP 33.8 31 - 36 [facility] g/dL [facility] RDW OP 15.5 11.5 - [facility] 15.5 % [facility] PLATELETS OP 290 150 - 400 [facility] K/uL [facility] Specimen (Source) Anatomical Collection Method Collection Time Re ceived Time Location / / Volume Laterality Blood specimen BLOOD SPECIMEN / 03/19/2011 12:33 (specimen) Unknown PM FOREST MANAGEMENT TEACHER Lulu Meneses MD HEMATOLOGY ORDERABLE Performing Organization Address City/State/ZIP Code Phon e Number [facility] [address] [place] [address] - [address] [address] GLUCOSE METER OP (03/19/2011 12:32 PM FOREST MANAGEMENT TEACHER) P athologist Signature GLUCOSE WB 90 60 - 100 [facility] METER mg/dL [facility] Specimen (Source) Anatomical Collection Method Collection Time Re ceived Time Location / / Volume Laterality Blood specimen BLOOD SPECIMEN / 03/19/2011 12:32 (specimen) Unknown PM FOREST MANAGEMENT TEACHER Lulu Meneses MD CHEMISTRY ORDERABLE Performing Organization Address City/[facility]/ZIP Page Hospital e Number [facility] [address] [address] [address] - [address] [place] [address] documented in this encounter Visit Diagnoses Diagnosis Annual physical exam - Primary Routine general medical examination at a health care facility Fatigue Other malaise and fatigue Snores Other dyspnea and respiratory abnormalit y Obesity Obesity, unspecified Multiple allergies Other allergy, other than to medicinal a gents documented in this encounter Care Teams Lay Up Operator Relationship Specialty Start Date End Date Jamal Lanier MD PCP - General 11/22/10 [facility], PCP - Primary Care Clinic 06/28/12 [facility] Phy documented as of this encounter
--- OUTSIDE RECORDS SUMMARY | 2022-01-24 09:48 | XMS_ITS | Encounter Summary ---
:1975 Author Organization [facility] Address [address] [place] [id number] Care Team Providers Name Role Phone Jamal Lanier MD Primary Care Provider Unavailable [facility], [facility] Unavailable Unavailable Reason for Referral (Routine) - Closed Specialty Diagnoses / Procedures Referred By Contact Refer red To Contact Diagnoses Abdominal pain, other specified site Juan Jose Baxter PA-C Procedures AST (SGOT) [address] [place], [place] [address] Referral ID Status Reason Start Date Expiration Date Visits Requ ested Visits Authorized [id number] Closed 06/23/2012 12/20/2012 1 1 FEED DEPARTMENT SUPERVISOR (Routine) - Closed Specialty Diagnoses / Procedures Referred By Contact Refer red To Contact Diagnoses Abdominal pain, other specified site Juan Jose Baxter PA-C Procedures AMYLASE, SERUM [address] [place], [place] [address] Referral ID Status Reason Start Date Expiration Date Visits Requ ested Visits Authorized [id number] Closed 06/23/2012 12/20/2012 1 1 FEED DEPARTMENT SUPERVISOR (Routine) - Closed Specialty Diagnoses / Procedures Referred By Contact Refer red To Contact Diagnoses Annual physical exam Preventative health care Juan Jose Baxter PA-C Procedures LIPID PROFILE CASCADE [address] [place], [place] [address] Referral ID Status Reason Start Date Expiration Date Visits Requ ested Visits Authorized [id number] Closed 06/23/2012 12/20/2012 1 1 FEED DEPARTMENT SUPERVISOR (Routine) - Closed Specialty Diagnoses / Procedures Referred By Contact Refer red To Contact Diagnoses Abdominal pain, other specified site Juan Jose Baxter PA-C Procedures BASIC METAB PROFILE [address] [place], [place] [address] Referral ID Status Reason Start Date Expiration Date Visits Requ ested Visits Authorized [id number] Closed 06/23/2012 12/20/2012 1 1 FEED DEPARTMENT SUPERVISOR Reason for Visit Reason Comments Physical with breast exam/ no pap Encounter Details Date Type Department Care Team Description 06/23/2012 Office Visit [facility] Juan Jose Baxter, An nual physical exam; Clinic - [facility] Preventative health care; [address] Bronchospasm; [place], [place] [address] [place], [place] Family history of ovarian ca ncer; [phone] Abdominal pain, other specified site; [phone] Bipolar disorde r (HCC); (Work) RLS (restless legs syndrome); Depressio n with anxiety Social History Tobacco Use Types Packs/Day Years [...] Sign Reading Time Taken Comments Blood Pressure 118/70 06/23/2012 1:19 PM CELL FEED DEPARTMENT SUPERVISOR Pulse 64 06/23/2012 1:19 PM CELL FEED DEPARTMENT SUPERVISOR Temperature - - Respiratory Rate 20 06/23/2012 1:19 PM CELL FEED DEPARTMENT SUPERVISOR Oxygen Saturation - - Inhaled Oxygen Concentration - - Weight 82.6 kg (182 lb) 06/23/2012 1:19 PM CELL FEED DEPARTMENT SUPERVISOR Height 158.8 cm (5' 2.5) 06/23/2012 1:19 PM CELL FEED DEPARTMENT SUPERVISOR Body Mass Index 32.76 06/23/2012 1:19 PM CELL FEED DEPARTMENT SUPERVISOR documented in this encounter Patient Instructions Patient InstructionsSumin Coffman RN - 06/23/2012 1:55 PM CST Referred to [facility] for an Ultrasound of the Pelvis. Patient given phone number to call of [phone]. Offices in [facility] and [place]. Patient will call to schedule the ultrasound. FEED DEPARTMENT SUPERVISOR documented in this encounter Progress Notes Juan Jose Baxter PA-C - 2012 7:15 AM CELL FEED DEPARTMENT SUPERVISOR Quick Note: Please advise nl labs, will get back to pt when us report back. pL FEED DEPARTMENT SUPERVISOR Jill Coffman RN - 06/23/2012 1:32 PM CST Maria Del Rosario Servin is a 36 y.o. female who presents for a physical exam SUBJECTIVE: Health maintenance review: Immunizations: Immunization History Administered Date(s) Administered ? ? 2011- Fluzone, 3 Yrs & Older (0.5 mL) 03/01/2012 ? ? Td (Tetanus-Diptheri) Vacc > 7 yrs 1997 Concerns: Lower stomach pains last 4 weeks, gets occ gerd, no change in bowel patterns. Has appt to see psych at [facility] soon. PAST MEDICAL HISTORY: Patient Active Problem List Diagnoses ??? Fatigue ??? Obesity ??? Snores ??? Multiple allergies ??? Depression with anxiety ??? Bipolar disorder ??? RLS (restless legs syndrome) ??? Insomnia ??? Lumbar vertebral fracture Rest of medical problems, allergies, medications, social history and family history reviewed and stable or unchanged. Patient denied problems with current medications. Meds: Current Outpatient Prescriptions: Ropinirole (REQUIP) 3 mg Oral Tab Take 3 mg by mouth Once Daily. Topiramate (TOPAMAX) 50 mg Oral Tab Take 1 Tab by mouth Once Daily. traZODone (DESYREL) 100 mg Oral Tab Take 1 Tab by mouth at bedtime. hydrocortisone 2.5% (HYTONE) Top cream Apply to skin twice a day as needed. albuterol 90 mcg/actuation Inhl Aerosol 2 Puffs by Inhalation route every 4 (four) hours as needed. Allergies: Review of patient's allergies indicates no known allergies. History Social History ??? Marital Status: Single Spouse Name: N/A Number of Children: 2 ??? 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 Smoking status: Current Everyday Smoker -- 0.5 packs/day for 19 years Types: Cigarettes ??? Smokeless tobacco: Never Used ??? Alcohol Use: No very rare ??? Drug Use: No ??? Sexually Active: Yes -- Male partner(s) Other Topics Concern ??? Not on file Social History Narrative ??? No narrative on file Family History Problem Relation Age of Onset ??? Autism Son ??? Colon Cancer Maternal Grandmother ??? Diabetes Mother ??? Drug Abuse Sister ??? Depression Sister ??? Mental Illness Sister ??? Cancer Sister stomach ??? Other Disease Son hereditary microspirtosis ??? Negative Hx Father unknown SYSTEM REVIEW Constitutional ROS: No unexpected change in weight, No unexplained fevers, sweats, or chills Eye ROS: No recent significant change in vision Ear ROS: No ear pain Mouth/Throat ROS: No sore throat Neck ROS: No lumps or masses, No swollen glands, No recent swelling in thyroid area Pulmonary ROS: No chronic cough, sputum, or hemoptysis Cardiovascular ROS: No chest pain Gastrointestinal ROS: No change in bowel habits, No significant change in appetite, No hematemesis, see above, points to mid abd both above and below belly button, does have occ acidy stomach, and gerd Breast ROS: No new breast lumps or masses, No severe breast pain, No nipple discharge Musculoskeletal/Extremities ROS: No peripheral edema Hematologic/Lymphatic ROS: No night sweats, but gets some sweating on psych meds Skin/Integumentary ROS: No abnormal skin lesions noted, No evidence of rash Neurologic ROS: No chronic headaches Psychiatric ROS: as above, pt feels stable on her meds. Gu: no sxs OBJECTIVE: GENERAL: alert and active in no apparent distress EYES: normal EARS: Right normal, Left normal OROPHARYNX : normal NECK: normal, supple, no adenopathy CARDIOVASCULAR : Regular Rate and Rhythm without murmurs or clicks LUNGS: clear to auscultation ABDOMEN : Abdomen is soft, without organomegaly or masses, mild mid abd tenderness, no mass, hsm, rebound or guarding. BREASTS: no mass, nodes or dc noted MUSCULOSKELATAL: Extremities with FROM and no problems identified. EXTREMITIES: Normal exam of the extremities. No clubbing, cyanosis, or edema. NEUROLOGICAL : Awake, alert and oriented x 3, Normal age appropriate gait, No involuntary motions. SKIN : normal color, no jaundice or rash Last labs review: No results found for this basename: glucose CHOLESTEROL Date Value Range Status 03/19/2011 214* <=199 (mg/dL) Final No results found for this basename: tsh ASSESSMENT: See diagnoses Maria Del Rosario was seen today for physical. Diagnoses and associated orders for this visit: Annual physical exam - Lipid Profile Charles - fasting - UA ,DIP ONLY - In Clinic Preventative health care - Lipid Profile Charles - fasting Bronchospasm - albuterol 90 mcg/actuation Inhl Aerosol; 2 Puffs by Inhalation route every 4 (four) hours as needed. Family history of ovarian cancer - Cancel: US (CLINIC) PELVIS NO IVT-NON OB; Future - US ([facility]) PELVIS NO IVT-NON OB; Future Abdominal pain, other specified site - BASIC METAB PROFILE - UA ,DIP ONLY - In Clinic - Cancel: US ([facility]) PELVIS NO IVT-NON OB; Future - AMYLASE, SERUM - AST - omeprazole (PRILOSEC) 20 mg Oral CpDR; Take 1 Cap by mouth Once Daily. - US ([facility]) PELVIS NO IVT-NON OB; Future Bipolar disorder Rls (restless legs syndrome) Depression with anxiety PLAN: 1 See orders below. 2. CPE - discussed diet/exercise, discussed safe sex/STIs, discussed self testicular exams, UTD, labs - FLP, glc, hgb, UA. 3. Contraception - hyst, still has ovaries, with fh ov cancer and stomach complaints, will order us.Pt will try some prilosec and will fu after test if neg and still has sxs. 4. Pt will fu with psych as scheduled, to get meds filled there Patient agreed with discussed care plan. bang abd sxs done and us ordered, extra time of 15 min spent on cc. FEED DEPARTMENT SUPERVISOR documented in this encounter Plan of Treatment Not on filedocumented as of this encounter Procedures Procedure Name Priority Date/Time Associated Diagnosis Comme nts UA DIP ONLY OP Routine 06/23/2012 1:54 PM Annual physic al exam Results for this (TOSHIA AND CELL FEED DEPARTMENT SUPERVISOR Abdominal pain, procedure a re in [facility] USE other specified site t he results ONLY) section. LIPID PROFILE Routine 06/23/2012 1:54 PM Annual physic al exam Results for this CASCADE CELL FEED DEPARTMENT SUPERVISOR Preventative health procedur e are in care the results section. AST (SGOT) Routine 06/23/2012 1:54 PM Abdominal pain, Result s for this CELL FEED DEPARTMENT SUPERVISOR other specified site procedu re are in the results section. BASIC METAB PROFILE Routine 06/23/2012 1:54 PM Abdominal pain, Results for this CELL FEED DEPARTMENT SUPERVISOR other specified site procedu re are in the results section. AMYLASE, SERUM Routine 06/23/2012 1:54 PM Abdominal pain, Resu lts for this CELL FEED DEPARTMENT SUPERVISOR other specified site procedu re are in the results section. documented in this encounter Results AST (SGOT) (06/23/2012 1:54 PM CELL FEED DEPARTMENT SUPERVISOR) P athologist Signature AST (SGOT) 14 12 - 45 06/23/2012 [facility] IU/L 10:24 PM CELL FEED DEPARTMENT SUPERVISOR LABORATORY Specimen Anatomical Collection Method Collection Time Receive d Time (Source) Location / / Volume Laterality Serum specimen VENOUS BLOOD 06/23/2012 1:54 PM 013 9:38 (specimen) SPECIMEN / Unknown CELL FEED DEPARTMENT SUPERVISOR PM CELL FEED DEPARTMENT SUPERVISOR Juan Jose Baxter PA-C CHEMISTRY ORDERABLE Performing Organization Address City/State/ZIP Code Phon e Number [facility] [address] [id number] LABORATORY [facility] [address] [address] (ABNORMAL) AMYLASE, SERUM (06/23/2012 1:54 PM CELL FEED DEPARTMENT SUPERVISOR) P athologist Signature AMYLASE 19 (L) 29 - 109 06/23/2012 [facility] IU/L 10:24 PM CELL FEED DEPARTMENT SUPERVISOR LABORATORY Specimen Anatomical Collection Method Collection Time Receive d Time (Source) Location / / Volume Laterality Serum specimen VENOUS BLOOD 06/23/2012 1:54 PM 013 9:38 (specimen) SPECIMEN / Unknown CELL FEED DEPARTMENT SUPERVISOR PM CELL FEED DEPARTMENT SUPERVISOR Juan Jose Baxter PA-C CHEMISTRY ORDERABLE Performing Organization Address City/State/ZIP Code Phon e Number [facility] [address] [place] [address] LABORATORY [facility] [address] [place], [place] [address] UA DIP ONLY OP (06/23/2012 1:54 PM CELL FEED DEPARTMENT SUPERVISOR) Patholo gist Method Time Signature GLUCOSE, UA Negative Negative * [place] BILIRUBIN, UA Negative Negative * [place] KETONE, UA Negative Negative [place], mg/dL [facility] SP.GRAVITY, UA 1.015 1.015 - [place], 1.025 * [facility] OCCULT BLOOD, Negative Negative, [place], UA Trace, [facility] TRACE-LYSED, TRACE-INTACT * PH URINE 6.5 4.5 - 8.0 * [place] PROTEIN, UA Negative Negative, [place], Trace * [facility] UROBILINOGEN, 0.2 0.2 - 1.0 [place], UA EU/dL [facility] NITRITE, UA Negative Negative * [place], [facility] WBC ESTERASE, Negative Negative, [place], UA Trace * [facility] COLOR Light [place], Yellow, [facility] Yellow CLARITY URINE Clear [facility] [place] Specimen (Source) Anatomical Collection Method Collection Time Re ceived Time Location / / Volume Laterality URINE SPECIMEN / 06/23/2012 1:54 PM Unknown CELL FEED DEPARTMENT SUPERVISOR Juan Jose Baxter PA-C URINE ORDERABLE Performing Organization Address City/State/ZIP Code Phon e Number [facility] [address] [facility] [place] [facility] [place] [address] [facility] [address] [place] [phone] (ABNORMAL) LIPID PROFILE CASCADE (06/23/2012 1:54 PM CELL FEED DEPARTMENT SUPERVISOR) Patholo gist Method Time Signature SPECIMEN TYPE Fasting 06/23/2012 [facility] 10:20 PM CELL FEED DEPARTMENT SUPERVISOR LABORATORY CHOLESTEROL 155 <200 06/23/2012 [facility] mg/dL 10:20 PM CELL FEED DEPARTMENT SUPERVISOR LABORATORY TRIGLYCERIDES 113 <150 06/23/2012 [facility] PROFILE mg/dL 10:20 PM CELL FEED DEPARTMENT SUPERVISOR LABORATORY LDL CHOL, CALC 97 <=100 06/23/2012 [facility] mg/dL 10:20 PM CELL FEED DEPARTMENT SUPERVISOR LABORATORY HDL CHOLESTEROL 35 (L) 40 - 60 06/23/2012 [facility] L mg/dL 10:20 PM CELL FEED DEPARTMENT SUPERVISOR LABORATORY CHOL/HDL RATIO 4.4 0.0 - 4.9 06/23/2012 [facility] 10:20 PM CELL FEED DEPARTMENT SUPERVISOR LABORATORY Specimen Anatomical Collection Method Collection Time Receive d Time (Source) Location / / Volume Laterality Serum specimen VENOUS BLOOD 06/23/2012 1:54 PM 013 9:38 (specimen) SPECIMEN / Unknown CELL FEED DEPARTMENT SUPERVISOR PM CELL FEED DEPARTMENT SUPERVISOR Juan Jose Baxter PA-C CHEMISTRY ORDERABLE Performing Organization Address City/State/ZIP Code Phon e Number [facility] [address] [facility] [address] LABORATORY [facility] [address] [place], [place] [address] BASIC METAB PROFILE (06/23/2012 1:54 PM CELL FEED DEPARTMENT SUPERVISOR) P athologist Signature SODIUM 138 133 - 144 06/23/2012 [facility] mMol/L 10:07 PM CELL FEED DEPARTMENT SUPERVISOR LABORATORY POTASSIUM 3.8 3.5 - 5.0 06/23/2012 [facility] mMol/L 10:07 PM CELL FEED DEPARTMENT SUPERVISOR LABORATORY CHLORIDE 108 99 - 111 06/23/2012 [facility] mMol/L 10:07 PM CELL FEED DEPARTMENT SUPERVISOR LABORATORY CARBON DIOXIDE 23.0 21.0 - 06/23/2012 [facility] 30.0 10:07 PM CELL FEED DEPARTMENT SUPERVISOR LABORATORY mMol/L BUN (UREA 7 6 - 24 06/23/2012 [facility] NITRO) mg/dL 10:07 PM CELL FEED DEPARTMENT SUPERVISOR LABORATORY CREATININE 0.94 0.40 - 06/23/2012 [facility] 1.10 mg/dL 10:07 PM CELL FEED DEPARTMENT SUPERVISOR LABORATORY EST GFR >60 >60 mL/min 06/23/2012 [facility] (CKD-EPI) 10:07 PM CELL FEED DEPARTMENT SUPERVISOR LABORATORY EST GFR IF >60 >60 mL/min 06/23/2012 [facility] AM 10:07 PM CELL FEED DEPARTMENT SUPERVISOR LABORATORY GLUCOSE 85 60 - 100 06/23/2012 [facility] mg/dL 10:07 PM CELL FEED DEPARTMENT SUPERVISOR LABORATORY CALCIUM, SERUM 9.6 8.6 - 10.2 06/23/2012 [facility] mg/dL 10:07 PM CELL FEED DEPARTMENT SUPERVISOR LABORATORY ANION GAP 7.0 0.0 - 15.0 06/23/2012 [facility] mMol/L 10:07 PM CELL FEED DEPARTMENT SUPERVISOR LABORATORY Specimen Anatomical Collection Method Collection Time Receive d Time (Source) Location / / Volume Laterality Serum specimen VENOUS BLOOD 06/23/2012 1:54 PM 013 9:38 (specimen) SPECIMEN / Unknown CELL FEED DEPARTMENT SUPERVISOR PM CELL FEED DEPARTMENT SUPERVISOR Juan Jose Baxter PA-C CHEMISTRY ORDERABLE Performing Organization Address City/State/ZIP Code Phon e Number [facility] [address] [place] [address] [phone] LABORATORY [facility] [address] [place], [place] [address] documented in this encounter Visit Diagnoses Diagnosis Annual physical exam Routine general medical examination at a health care facility Preventative health care Routine general medical examination at a health care facility Bronchospasm Acute bronchospasm Family history of ovarian cancer Family history of malignant neoplasm of ovary Abdominal pain, other specified site Bipolar disorder (HCC) Bipolar disorder, unspecified RLS (restless legs syndrome) Restless legs syndrome (RLS) Depression with anxiety Dysthymic disorder documented in this encounter Care Teams Manager Fund Relationship Specialty Start Date End Date Jamal Lanier MD PCP - General 11/22/10 [facility], PCP - Primary Care Clinic 06/28/12 [facility] Naina documented as of this encounter
--- OUTSIDE RECORDS SUMMARY | 2022-01-24 09:48 | XMS_ITS | Encounter Summary ---
:1975 Author Organization [facility] Address [address] [place] [address] Care Team Providers Name Role Phone Jacques Alcantara MD Primary Care Provider Unavailable [facility] Family Phy Unavailable Unavailable Reason for Visit Reason Comments Pre Op exam right foot Encounter Details Date Type Department Care Team Description 01/25/2014 Office Visit [facility] Jacques Alcantara Preop cardiovascular exam (Primary Dx); Clinic - Lashell Veliz MD Flu vaccine need; [address] [place] [address] Avenue Metatarsa lgia of right foot; S.E. Hyperkeratosis; [place], [place] [address] Asthma, mild intermittent, u ncomplicated; [phone] Tobacco abuse Social History Tobacco Use Types Packs/Day Years Used Date Smoking Tobacco: Former Cigarettes 1 19 Smokeless Tobacco: Never Alcohol Use Standard [...] Sign Reading Time Taken Comments Blood Pressure 120/84 01/25/2014 11:17 AM CDT Pulse 78 01/25/2014 11:17 AM CDT Temperature 36.6 ??C (97.8 ??F) 01/25/2014 11:17 AM CDT Respiratory Rate - - Oxygen Saturation 95% 01/25/2014 11:17 AM CDT Inhaled Oxygen Concentration - - Weight 91.4 kg (201 lb 8 oz) 01/25/2014 11:17 AM CDT Height 160 cm (5' 3) 01/25/2014 11:17 AM CDT Body Mass Index 35.69 01/25/2014 11:17 AM CDT documented in this encounter Patient Instructions Patient InstructionsMarika Beasley CMA - 01/25/2014 11:13 AM CDT Dos 10-9-14 Dr Chapa [facility] RT foot metatarsal osteotomy documented in this encounter Progress Notes Jacques Alcantara MD - 01/25/2014 11:49 AM CDT Preoperative History and Physical Examination Date of Examination: 01/25/2014 Proposed Surgery: Right Foot Metatarsal Osteotomy Surgeon: Dr. Salcedo Date of Surgery: 02/16/2014 Location of Surgery: [facility] Maria Del Rosario Servin presents today in consultation for preoperative clearance for the above mentioned procedure as requested by Dr. Salcedo. She is otherwise in her usual state of health. Indication for Surgery: Right foot pain for the past 4 months Previous diagnostic and therapeutic evaluation: Podiatry has evaluated patient with imaging and painand symptoms are directly underneath the fourth metatarsal head. Recommended possible metatarsal osteotomy with likely debridement of the wound and possibly even excision of this area during the procedure. Chief Complaint Patient presents with ??? Pre Op exam right foot Past Medical History: Past Medical History Diagnosis Date ??? Asthma mild intermittant/ more inWinter ??? Depression with anxiety ??? Bipolar disorder 1999 [facility] [place] operated by [facility] ??? RLS (restless legs syndrome) 2004 requip works well hs ??? Insomnia trazadone tx works well ??? Lumbar vertebral fracture 1988 L4 or L5 ??? Chronic mental illness 1990 Patient Active Problem List Diagnosis ??? Fatigue ??? Obesity ??? Snores ??? Multiple allergies ??? Depression with anxiety ??? Bipolar disorder ??? RLS (restless legs syndrome) ??? Insomnia ??? Lumbar vertebral fracture Current Outpatient Prescriptions: dextroamphetamine-amphetamine (ADDERALL XR) 10 mg Oral 24hr SR caps Take by mouth Twice a Day. Fluorouracil (EFUDEX) 5 % Top cream Apply to skin Twice a Day. LORazepam (ATIVAN) 0.5 mg Oral Tab Take 0.5 mg by mouth Twice a Day. ziprasidone hcl (GEODON) 20 mg Oral Cap Take 20 mg by mouth Twice a Day. albuterol 90 mcg/actuation Inhl Aerosol 2 Puffs by Inhalation route every 4 (four) hours as needed. omeprazole (PRILOSEC) 20 mg Oral CpDR Take 1 Cap by mouth Once Daily. Ropinirole (REQUIP) 3 mg Oral Tab Take 3 mg by mouth Once Daily. traZODone (DESYREL) 100 mg Oral Tab Take 1 Tab by mouth at bedtime. hydrocortisone 2.5% (HYTONE) Top cream Apply to skin twice a day as needed. traMADol (ULTRAM) 50 mg Oral Tab Take 1 Tab by mouth every 6 (six) hours as needed for Pain. cyclobenzaprine (FLEXERIL) 10 mg Oral Tab Take 1 Tab by mouth every 8 (eight) hours as needed for Muscle spasm (back pain). No Known Allergies Past Surgical History: Past Surgical History Procedure Laterality Date ??? Hb tubal ligation addl 2000 ??? Hx section 1997,2000 ??? Hx partial hysterectomy 2003 Personal/Family History of Anesthetic Reaction? NO Personal/Family History of easy bruising/bleeding disorder? NO Personal History of Snoring/Sleep Apnea? NO Personal/Family History of VTE/PE? NO Current Aspirin Use? No Recent Steroid Use? No Other Significant Family History: Family History Problem Relation Age of Onset ??? Autism Son ??? Colon Cancer Maternal Grandmother ??? Diabetes Mother ??? Drug Abuse Sister ??? Depression Sister ??? Mental Illness Sister ??? Cancer Sister stomach ??? Other Disease Son hereditary microspirtosis ??? Negative Hx Father unknown Psychosocial: Mother and family with assist in aftercares. Pt is bipolar and has been stable for thepast 2 years on her current regimen. She has been instructed to take her psychiatric meds with waterthat day of the procedure. Tobacco Use: History Smoking status ??? Former Smoker -- 1.00 packs/day for 19 years ??? Types: Cigarettes Smokeless tobacco ??? Never Used Alcohol Use: History Alcohol Use ??? 0.5 oz/week ??? 1 Cans of beer per week Comment: very rare Caffeine Use: 6 cups daily Review of Systems - General: No fevers, chills, weight loss Head: No headaches or recent trauma Eyes: No acute change in vision, farsighted at baseline and stable Ears: No acute change in hearing Oropharynx: No sore throat or URI symptoms CV: No chest pain or palpitations. Resp: No shortness of breath or cough. No hemoptysis. GI: No nausea, vomiting, constipation, diarrhea, melena or abdominal pain : No urinary pain, change in color, or frequency MS: No arthralgias or myalgias Right foot as above. Psych: Psych as above. Pt is bipolar and has been stable for the past 2 years on her current regimen. She has been instructed to take her psychiatric meds with water that day of the procedure. Skin: No new rashes or lesions Neuro: No alterations in thinking, paresthesias, or weakness All other systems reviewed; negative findings Filed Vitals: 01/25/14 1117 BP: 120/84 Pulse: 78 Temp: 97.8 ??F (36.6 ??C) TempSrc: Oral Height: 1.6 m (5' 3) Weight: 91.4 kg (201 lb 8 oz) SpO2: 95% General - alert & orientated, pleasant and [...] Neurologic - Cranial nerves 2-12 intact, Pateller, achilles, biceps and brachioradialis reflexes intact. Muscle tone, bulk and strength within normal limits throughout. Psych - Judgment and mental status are clear, patient has reasonable insight. Mood is stable. Labs/Tests ordered today: Hemoglobin: Not indicated Potasium: Not indicated 12-lead EKG: Not indicated Immunizations up to date: YES Last tetanus 10/2013 Diagnosis, Plan and Orders: Preop cardiovascular exam - pt does not have any contraindications to the proposed procedure. NO personal or family history of blood clots or bleeding disorders. No personal or family history of reactions to anesthesia. Flu vaccine need - Plan: FLUARIX QUAD SDS, 36 MOS & OLDER - Immunization/Injection provided today in clinic. Metatarsalgia of right foot/Hyperkeratosis - indications for surgery as above. Bipolar Type I - Pt is bipolar and has been stable for the past 2 years on her current regimen. She has been instructed to take her psychiatric meds with water that day of the procedure. Asthma, mild intermittent, uncomplicated - patient has albuterol inhaler and instructed to bring it on the day of surgery. Her asthma is normally well controlled and flares when she has a respiratory infection or with certain types of exercise. Tobacco abuse - Patient continues to smoke 1 ppd - provided quit plan information today. Dr. Chapa Please see the above history and physical on our mutual patient, Maria Del Rosario Srevin. This Patient is an acceptable candidate for the proposed surgical procedure and anticipated anesthesia. Thank you for allowing me to participate in the pre operative consultation of this patient. Regards, Jacques Alcantara MD documented in this encounter Plan of Treatment Not on filedocumented as of this encounter Visit Diagnoses Diagnosis Preop cardiovascular exam - Primary Pre-operative cardiovascular examination Flu vaccine need Need for prophylactic vaccination and in oculation against influenza Metatarsalgia of right foot Enthesopathy of ankle and tarsus, unspec ified Hyperkeratosis Acquired keratoderma Asthma, mild intermittent, uncomplicated Tobacco abuse Tobacco use disorder documented in this encounter Care Teams Relocation Associate Relationship Specialty Start Date End Date Jacques Alcantara MD PCP - General Family Medicine 12/15/12 [facility], PCP - Primary Care Clinic [facility] documented as of this encounter
--- OUTSIDE RECORDS SUMMARY | 2022-01-24 09:48 | XMS_ITS | Encounter Summary ---
:[address] [facility] Address [address] [place] [address] Care Team Providers Name Role Phone Jacques Alcantara MD Primary Care Provider Unavailable [facility] Family Phy Unavailable Unavailable Reason for Visit Reason Comments Infection right foot pain Encounter Details Date Type Department Care Team Description 11/18/[address] [facility] Jacques Alcantara, Ryan kruger of right Clinic - [facility] foot (Primary Dx) [address] [place] [address] Social History Tobacco Use Types Packs/Day Years [...] Reading Time Taken Comments Blood Pressure 110/66 11/18/2013 9:58 AM CDT Pulse 54 11/18/2013 9:58 AM CDT Temperature 36.9 ??C (98.4 ??F) 11/18/2013 9:58 AM CDT Respiratory Rate 14 11/18/2013 9:58 AM CDT Oxygen Saturation 94% 11/18/2013 9:58 AM CDT Inhaled Oxygen Concentration - - Weight 92.1 kg (203 lb) 11/18/2013 9:58 AM CDT Height 158.8 cm (5' 2.5) 11/18/2013 9:58 AM CDT Body Mass Index 36.54 11/18/2013 9:58 AM CDT documented in this encounter Progress Notes Jacques Alcantara MD - 11/18/2013 5:48 PM CDT SUBJECTIVE: 38 y.o. female for continued pain at site of previous plantar wart hyfrecation with currettage. Denies any discharge. States that it is tender and hurts to walk on and she was hoping by this time it would be resolved as it has been 3 weeks. Denies any other pain, fevers, or systemic symptoms. Pain is focal does not radiate and severe / worse with weight bearing, improved with rest. Current Outpatient Prescriptions Medication Sig Dispense [...] No dyspnea or chest pain on exertion. Foot pain as above. OBJECTIVE: The patient appears well, in NAD. BP 110/66 Pulse 54 Temp(Src) 98.4 ??F (36.9 ??C) (Oral) Resp 14 Ht 1.588 m (5' 2.5) Wt 92.08 kg (203 lb) BMI 36.51 kg/m2 SpO2 94% ISAC. Healing right foot pad lesion without evidence of erythema abscess or swelling. Still markedly tender to palpation however eschar present and stable. ASSESSMENT/PLAN: Plantar wart of right foot - Plan: traMADol (ULTRAM) 50 mg Oral Tab - counseled pt no signs of infection however wart may be returning Counseled continue to monitor for next 2-3 weeks if lesion does not slough off or improved will likely perform 2nd round of curettage. Provided some pain medications. Pt to return in 2-3 weeks, sooner as needed. Options for treatment and follow-up care were reviewed with the patient and/or guardian. Maria Del Rosario Veliz [place] and/or guardian engaged in the decision making process and verbalized understanding of the optionsdiscussed and agreed with the final plan. documented in this encounter Plan of Treatment Not on filedocumented as of this encounter Visit Diagnoses Diagnosis Plantar wart of right foot - Primary Plantar wart documented in this encounter Care Teams Child Adolescent Care Relationship Specialty Start Date End Date Jacques Alcantara MD PCP - General Family Medicine 12/15/12 [facility], PCP - Primary Care Clinic 3 09/16/17 [facility] documented as of this encounter
--- OUTSIDE RECORDS SUMMARY | 2022-01-24 09:48 | XMS_ITS | Encounter Summary ---
:1975 Author Organization [facility] Address [address] [place] [id number] Care Team Providers Name Role Phone Jacques Alcantara MD Primary Care Provider Unavailable [facility] Unavailable Unavailable Reason for Referral (Routine) - Closed Specialty Diagnoses / Procedures Referred By Contact Refer red To Contact Diagnoses Pain in limb Robert Chapa DPMakayla Procedures XR FOOT RT [address] [place] [address] [place], [place] [address] Referral ID Status Reason Start Date Expiration Date Visits Requ ested Visits Authorized [id number] Closed 01/17/2014 07/16/2014 1 1 Reason for Visit (Routine) - Closed Specialty Diagnoses / Procedures Referred By Contact Refer red To Contact Diagnoses Pain in limb Robert Chapa DPMakayla Procedures XR FOOT RT [address] [place] [address] [place], [place] [address] Referral ID Status Reason Start Date Expiration Date Visits Requ ested Visits Authorized [id number] Closed 01/17/2014 07/16/2014 1 1 Encounter Details Date Type Department Care Team Description 01/17/2014 Hospital Encounter Nanette Andrew [facility] [phone] [facility] [place] [address] Social History Tobacco Use Types Packs/Day Years [...] muscle needed for Muscle spasm (back pain). Fluorouracil (EFUDEX) 5 % Apply to skin 40 g 2 014 04/26/2014 Top cream Twice a Day. hydrocortisone 2.5% Apply to skin 30 g 3 06/08/2012 (HYTONE) Top twice a day as creamIndications: Eczema needed. LORazepam (ATIVAN) 0.5 mg Take 0.5 mg by 0 03/08/2015 Oral Tab mouth Twice a Day. traMADol (ULTRAM) 50 mg Take 1 Tab by 30 Tab 1 4 04/26/2014 Oral TabIndications: mouth every 6 Plantar wart of right foot (six) hours as needed for Pain. ziprasidone hcl (GEODON) 20 Take 40 mg by 0 08/03/2015 mg Oral Cap mouth Twice a Day. documented as of this encounter Plan of Treatment Not on filedocumented as of this encounter Procedures Procedure Name Priority Date/Time Associated Diagnosis Comme nts XR FOOT RT 3 VIEW Routine 01/17/2014 12:59 PM Pain in limb Res ults for this CDT procedure are i n the results section. documented in this encounter Results XR (MDIP) FOOT RT 3 VIEW (01/17/2014 12:59 PM CDT) Anatomical Region Laterality Modality Extremity Computed Radiography Specimen (Source) Anatomical Collection Method Collection Time Re ceived Time Location / / Volume Laterality 01/17/2014 12:58 PM CDT Impressions 01/17/2014 12:59 PM CDT IMPRESSION: Negative examination. Narrative 01/17/2014 12:59 PM CDT EXAMINATION: Right foot, three views. ??01/17/2014 12:52 PM CLINICAL DATA: Pain. ? COMPARISON: ??None. FINDINGS: Three views were performed. ?? A small radiopaque marker was placed on the skin surface about the plantar aspect of the right foot in the region of clinical concern. ??No fracture or dislocatio n is identified. ??No other soft tissue, bony or joint abnormality is seen. Procedure Note Diego Quintana MD - 01/17/2014Forma tting of this note might be different from the original. EXAMINATION: Right foot, three views. 01/17/2014 12:52 PM CLINICAL DATA: Pain. COMPARISON: None. FINDINGS: Three views were performed. A small radiopaque marker was placed on the skin surface about the plantar aspect of the right foot in the region of clinical concern. No fracture or dislocation is identified. No other soft tissue, bony or joint abn ormality is seen. IMPRESSION: Negative examination. Robert E Zelent DPM XRAY ORDERABLE documented in this encounter Visit Diagnoses Diagnosis Pain in limb documented in this encounter Care Teams Asbestos Brake Lining Finisher Helper Relationship Specialty Start Date End Date Jacques Alcantara MD PCP - General Family Medicine 12/15/12 [facility], PCP - Primary Care Clinic 3 09/16/17 [facility] documented as of this encounter
--- OUTSIDE RECORDS SUMMARY | 2022-01-24 09:48 | XMS_ITS | Encounter Summary ---
:1975 Author Organization [facility] Address [address] [place] [address] Care Team Providers Name Role Phone Jacques Alcantara MD Primary Care Provider Unavailable [facility] Phy Unavailable Unavailable Reason for Visit Reason Comments Warts right plantar wart; primary attempted cryo twice and debriding the area Encounter Details Date Type Department Care Team Description 12/21/2013 Office Visit [facility] Vivian Chapa, DPM Corns and callosities (Primary Dx); Clinic - [address] Brooks specified viral warts; [address] [facility] [address] Pain in limb [place], [place] [address] [place], [place] [phone] [id number] (Wo rk) Social History Tobacco Use Types [...] Sign Reading Time Taken Comments Blood Pressure 132/86 12/21/2013 1:55 PM CDT Pulse 82 12/21/2013 1:53 PM CDT Temperature 36.5 ??C (97.7 ??F) 12/21/2013 1:53 PM CDT Respiratory Rate - - Oxygen Saturation - - Inhaled Oxygen Concentration - - Weight 90.5 kg (199 lb 9.6 oz) 12/21/2013 1:53 PM CDT Height 157.5 cm (5' 2) 12/21/2013 1:53 PM CDT Body Mass Index 36.51 12/21/2013 1:53 PM CDT documented in this encounter Progress Notes Robert Chapa, CHRISTIANE - 12/22/2013 8:12 AM CDT CC: Jacques Alcantara MD SUBJECTIVE: The patient is a 38-year-old woman who presents to the clinic today in consultation fromDr. Jacques Alcantara for evaluation of a mass in the bottom of her right foot. She is a somewhat poor historian. Through evaluation of the medical records, it appears that she has been treating a wart on the bottom of her right foot. From what I am able to gather, she had hyfrecation and curettage of thiswart. She has had cryotherapy of this wart. She does not feel that this is any better. She is not sure how long this has been present for, but per her recollection she thinks it has been about a half ayear to a year. She does not ever remember having a mass here in the past. She notes that there is tenderness to palpation. She notes that there is tenderness when she walks. She does not necessarily feel any pain at rest. She is here to discuss other options. She does not feel like the initial therapy has been helpful. ALLERGIES, MEDICATIONS AND PAST MEDICAL HISTORY: Reviewed in [facility] medical record. SOCIAL HISTORY: Unremarkable. She reports that she is a [id number] mom. She does not work outside the home. She denies smoking cigarettes. She does no exercise and states that she has totally sedentary. FAMILY HISTORY: Unremarkable. PHYSICAL EXAMINATION: GENERAL: She is awake and alert. She is in no distress. EXTREMITIES: The skin is warm and dry. DP and PT pulses are 1/4 with prompt capillary refill time. Sensation is intact. There is a callused, nucleated lesion to the plantar aspect of the right foot. This is immediately lateral to the fourth metatarsal phalangeal joint. I debrided this quite thoroughly, and I did not identify any area which appeared to be verrucous in nature. I did not see any evidence for there being any type of a tumor present here. There was some tenderness to palpation. This was directly over the metatarsophalangeal joint. There was no erythema, edema nor ecchymosis. There was no drainage nor any sign of infection. ASSESSMENT: Hyperkeratotic lesion with probable verruca plantaris. PLAN: I examined her foot, ankle and leg and discussed a treatment plan. I did review options with her as well as a plan of care. I debrided the lesion quite thoroughly. I do not see any evidence for afurther tumor nor mass. I explained that I suspect that the hyfrecation or curettage of the lesion did work and that there is simply some callusing here. She wanted additional reassurance. I offered medication. I gave her a script for Efudex cream to apply to the area twice per day. I want her to do this for about one month and then return for followup in the future as needed. She was satisfied with this plan. She will return for followup as needed. Robert Chapa DPM /JONAS Dictation ID: [id number] Robert Chapa DPM - 12/22/2013 7:53 AM CDT SEE DICTATION FOR DETAILS OF EXAMINATION AND PLAN REVIEW OF SYSTEMS A comprehensive review of systems was negative except for items noted in the HPI/Subjective. Constitutional: Negative for fever, chills, fatigue Eyes: Negative for visual disturbance, irritation and redness Respiratory: Negative for cough, dyspnea, wheezing Cardiovascular: Negative for chest pain, chest pressure, chest discomfort, claudication, leg edema Gastrointestinal: Negative for nausea, vomiting, change in bowel habits, diarrhea, constipation Integument: Positive for rash, skin lesion(s), pruritis, dryness and skin color change Lymphatic: Negative for easy bruising, bleeding, lymphadenopathy and petechiae Musculoskeletal: Negative for myalgias, arthralgias, stiff joints and bone pain Neurological: Negative for headaches, memory problems, paresthesia, coordination problems and gait problems Psychiatric: Negative for nervousness, anxiety and depression PAST MEDICAL HISTORY Past Medical History Diagnosis Date ??? Asthma mild intermittant/ more inWinter ??? Depression with anxiety ??? Bipolar disorder 1999 [facility] medical clinic ??? RLS (restless legs syndrome) 2004 requip works well hs ??? Insomnia trazadone tx works well ??? Lumbar vertebral fracture 1988 L4 or L5 ??? Chronic mental illness 1990 PAST SURGICAL HISTORY Past Surgical History Procedure Laterality Date ??? Hb tubal ligation addl 2000 ??? Hx section 1997,2000 ??? Hx partial hysterectomy 2003 CURRENT MEDS Current outpatient prescriptions:Fluorouracil (EFUDEX) 5 % Top cream, Apply to skin Twice a Day., Disp: 40 g, Rfl: 2; traMADol (ULTRAM) 50 mg Oral Tab, Take 1 Tab by mouth every 6 (six) hours as neededfor Pain., Disp: 30 Tab, Rfl: 1; LORazepam (ATIVAN) 0.5 mg Oral Tab, Take 0.5 mg by mouth Twice a Day., Disp: , Rfl: ; ziprasidone hcl (GEODON) 20 mg Oral Cap, Take 20 mg by mouth Twice a Day., Disp: ,Rfl: cyclobenzaprine (FLEXERIL) 10 mg Oral Tab, Take 1 Tab by mouth every 8 (eight) hours as needed for Muscle spasm (back pain)., Disp: 20 Tab, Rfl: 0; albuterol 90 mcg/actuation Inhl Aerosol, 2 Puffs by Inhalation route every 4 (four) hours as needed., Disp: 1 Inhaler, Rfl: 2; omeprazole (PRILOSEC) 20 mgOral CpDR, Take 1 Cap by mouth Once Daily., Disp: 30 Cap, Rfl: 1 Ropinirole (REQUIP) 3 mg Oral Tab, Take 3 mg by mouth Once Daily., Disp: 90 Tab, Rfl: 1; traZODone (DESYREL) 100 mg Oral Tab, Take 1 Tab by mouth at bedtime., Disp: 90 Tab, Rfl: 0; hydrocortisone 2.5% (HYTONE) Top cream, Apply to [...] of beer per week Comment: very rare ??? Drug Use: No ??? Sexual Activity: Yes Partners: Male Other [...] dictation for full details of examination PSYCHOLOGICAL/JUDGEMENT: intact / normal documented in this encounter Plan of Treatment Scheduled Orders Name Type Priority Associated Diagnoses Order S chedule PARING BENIGN Procedures Routine Corns and callos ities Ordered: 12/22/2013 HYPERKERATOTIC LESION Other specified vir al warts Pain in limb documented as of this encounter Visit Diagnoses Diagnosis Corns and callosities - Primary Other specified viral warts Pain in limb documented in this encounter Care Teams General Surgery Physician Assistant Relationship Specialty Start Date End Date Jacques Alcantara MD PCP - General Family Medicine 12/15/12 [facility], [facility] this [facility]
--- OUTSIDE RECORDS SUMMARY | 2022-01-24 09:48 | XMS_ITS | Encounter Summary ---
:1975 Author Organization [facility] Address [address] [place] [address] Care Team Providers Name Role Phone Juan Jose Baxter PA-C [facility] [phone] Reason for Referral PT/OT/ST (Routine) - Closed Specialty Diagnoses / Procedures Referred By Contact Refer red To Contact Physical Med & Rehab. Diagnoses DDD (degenerative disc disease), lumbar Bulge of lumbar disc without myelopathy Juan Jose Baxter, [facility] / Physical Therapy [facility] - [address] [place], [place] [address] [address] [address] [place] [address] Phone: Fax: Referral ID Status Reason Start Date Expiration Date Visits V isits Requested Authorized [id number] Closed Specialty 11/18/2012 05/17/2013 24 24 Services Required Comments [facility]BC for 12 wk rehab program for DDD lum bar with bulging lumbar disc Reason for Visit Reason Comments Back pain Encounter Details Date Type Department Care Team Description 11/18/2012 Office Visit [facility] Juan Jose Baxter Lo w back pain (Primary Dx); Clinic - [place] [facility] DDD (degenerative disc disease), lumbar; [address] Bulge of lumbar disc without myelopathy [place] [address] [place] Armendariz [phone] Social History Tobacco Use Types Packs/Day Years [...] Reading Time Taken Comments Blood Pressure 118/70 11/18/2012 3:22 PM CDT Pulse - - Temperature 37 ??C (98.6 ??F) 11/18/2012 3:22 PM CDT Respiratory Rate - - Oxygen Saturation - - Inhaled Oxygen Concentration - - Weight 88.5 kg (195 lb) 11/18/2012 3:22 PM CDT Height 160 cm (5' 3) 11/18/2012 3:22 PM CDT Body Mass Index 34.54 11/18/2012 3:22 PM CDT documented in this encounter Patient Instructions Patient InstructionsSusimonae Hayden Coffman RN - 11/18/2012 3:46 PM CDT Referred to [facility]. Referral order faxed to them at [phone]. Patient instructed to call the registration phone numbe of [phone] ext. [phone] to register prior to obtaining an appt for a consultation documented in this encounter Progress Notes Juan Jose Baxter PA-C - 11/18/2012 5:16 PM CDT See dict Maria Del Rosario was seen today for back pain. Diagnoses and associated orders for this visit: Low back pain - Gabapentin 100 mg Oral Tab; Take 2 pills twice day DDD (degenerative disc disease), lumbar - REFERRAL PHYSICAL THERAPY Bulge of lumbar disc without myelopathy - REFERRAL PHYSICAL THERAPY Juan Jose Baxter PA-C - 11/18/2012 5:16 PM CDT CC: SUBJECTIVE: This is a 37-year-old female who is in following up on her epidural. She brought in her pain scale, which was down to two a couple days after, and has steadily increased to the eight and nine range, to the previous level she was at before the injection. Her MRI did show degenerative disk disease fairly significant at the L5-S1 level with a bulging disk. She denies radicular symptoms. Achy, sore, painful. She wonders about using Vicodin. She has increased her gabapentin to 200 mg b.i.d. PHYSICAL EXAMINATION: Stands easily, reflexes in the lower extremities +2, symmetrical. Straight legraise is negative. Muscle strength normal. No pain to palpation of the back. ASSESSMENT: Chronic low back pain, degenerative disk disease with bulging disk at L5-S1. PLAN: I told the patient that narcotics are not a long-term solution. I would increase slowly her gabapentin to try to get to 600 mg twice a day and can increase to 600 t.i.d. slowly with dose changes every three to seven days to prevent drowsy effect. I would also like her to go through the [facility] physical [facility] program. I think long-term that would help her to strengthen the back and recheck here after her physical therapy treatments. Return sooner if worse or side effects of medicine. Juan Jose Baxter PA-C /CHRIS Dictation ID: [id number] documented in this encounter Plan of Treatment Scheduled Referrals Name Type Priority Associated Diagnoses Order S chedule REFERRAL PHYSICAL Referral Routine DDD (degenerative disc Ordered: 11/18/2012 THERAPY disease), lumbar Bulge of lumbar disc without myelopathy documented as of this encounter Visit Diagnoses Diagnosis Low back pain - Primary Lumbago DDD (degenerative disc disease), lumbar Degeneration of lumbar or lumbosacral in tervertebral disc Bulge of lumbar disc without myelopathy Displacement of lumbar intervertebral di sc without myelopathy documented in this encounter Care Teams Floor Worker Relationship Specialty Start Date End Date Juan Jose Baxter, PCP - General Physician District Leader 06/29/1212/14 [facility] [place] PCP - Primary Care Clinic 06/29/12 12/14/12 [place] [address] [place] [id number] documented as of this encounter
--- OUTSIDE RECORDS SUMMARY | 2022-01-24 09:48 | XMS_ITS | Encounter Summary ---
:1975 Author Organization [facility] Address [address] [place] [address] Care Team Providers Name Role Phone Jacques Alcantara MD Primary Care Provider Unavailable [facility] Unavailable Unavailable Reason for Visit Reason Comments Dry cough Sore throat losing voice - painful throa t Vomiting with diarrhea x3 days Encounter Details Date Type Department Care Team Description 12/09/2013 Office Visit [facility] Juana Hankins Up per respiratory infection (Primary Dx); Clinic - [facility] PA-C Voice hoarseness; [address] [place] [address] NE Nausea and vomiting; [place], [place] [address] Loose stools [phone] Social History Tobacco Use Types Packs/Day Years [...] Sign Reading Time Taken Comments Blood Pressure 136/98 12/09/2013 5:56 PM CDT Pulse 80 12/09/2013 5:56 PM CDT Temperature 37.2 ??C (99 ??F) 12/09/2013 5:56 PM CDT Respiratory Rate 20 12/09/2013 5:56 PM CDT Oxygen Saturation 97% 12/09/2013 5:56 PM CDT Inhaled Oxygen Concentration - - Weight 90.2 kg (198 lb 14.4 oz) 12/09/2013 5:56 PM CDT Height - - Body Mass Index 36.38 12/06/2013 12:07 PM CDT documented in this encounter Progress Notes Juana Hankins - 12/09/2013 8:40 PM CDT CC: Dry cough, Sore throat and Vomiting with diarrhea Subjective: HPI Maria Del Rosario Servin is a 38 y.o. female who presents for evaluation of 3 days of URI symptoms, nausea/vomiting and loose stools. She states she developed nasal congestion, sore throat and cough symptoms 3 days ago. The cough can be productive of some clear-green mucus. She has noted some increased shortnessof breath/chest tightness with activity; this improves with use of her albuterol inhaler. No chest pain. Yesterday she had 3 episodes of vomiting. Today, she continues to feel nauseated, but has not vomited. Decreased appetite, but has toelrated fluids. Several episodes of loose stools both yesterday and today; estimates 2-3/day. Denies melena and hematochezia. No fever but has been fatigued. No known ill contacts. Review of Systems: Pertinent review of systems completed and negative except as noted above. Remainder of medical problems, medications and allergies reviewed and stable or unchanged. Objective: BP 136/98 Pulse 80 Temp(Src) 99 ??F (37.2 ??C) (Tympanic) Resp 20 Wt 90.22 kg (198 lb 14.4 oz) BMI 36.37 kg/m2 SpO2 97% Physical Exam Nursing note and vitals reviewed. Constitutional: She is oriented to person, place, and time. She appears well- developed and well-nourished. No distress. HENT: Head: Normocephalic and atraumatic. Right Ear: Tympanic membrane and ear canal normal. Left Ear: Ear canal normal. A middle ear effusion is present. Nose: Rhinorrhea present. No mucosal edema. Mouth/Throat: Uvula is midline and mucous membranes are normal. Posterior oropharyngeal erythema present. No oropharyngeal exudate or posterior oropharyngeal edema. Post nasal drainage present. Eyes: Conjunctivae and EOM are normal. Pupils are equal, round, and reactive to light. Neck: Normal range of motion. Neck supple. Cardiovascular: Normal rate and regular rhythm. Pulmonary/Chest: No respiratory distress. She has wheezes (few, scattered). She has no rales. Lymphadenopathy: She has no cervical adenopathy. Neurological: She is alert and oriented to person, place, and time. Skin: Skin is warm and dry. She is not diaphoretic. Psychiatric: She has a normal mood and affect. Assessment/Plan: Maria Del Rosario was seen today for dry cough, sore throat and vomiting with diarrhea. Diagnoses and associated orders for this visit: Upper respiratory infection Voice hoarseness Nausea and vomiting Loose stools Maria Del Rosario Servin is a 38 y.o. female who presents for evaluation of 3 days of URI symptoms, nausea/vomiting and loose stools. Exam findings discussed. SYmptoms appear to be due to a viral process; discussed CBC but will defer. Encouraged symptomatic treatments with increased fluids, rest and steam/humidity. Continue with regular use of the albuterol inhaler as needed. Elevate the head of the bed. Throatlozenges and salt water gargles. Follow up in 3-4 days if symptoms are not improving, sooner if new/worsening concerns develop. Questions answered and patient is in agreement with plan as outlined. Juana Hankins documented in this encounter Plan of Treatment Not on filedocumented as of this encounter Visit Diagnoses Diagnosis Upper respiratory infection - Primary Acute upper respiratory infections of un specified site Voice hoarseness Dysphonia Nausea and vomiting Nausea with vomiting Loose stools Abnormal feces documented in this encounter Care Teams Supervisor [employer] Relationship Specialty Start Date End Date Jacques Alcantara MD PCP - General Family Medicine 12/15/12 [facility] P[facility] - Primary Care Clinic 3 09/16/17 [facility] documented as of this encounter
--- OUTSIDE RECORDS SUMMARY | 2022-01-24 09:48 | XMS_ITS | Encounter Summary ---
:1975 Author Organization [facility] Address [address] [place] [address] Care Team Providers Name Role Phone Shannon Todd MD Primary Care Provider Rehab, [facility] And Unavailable [phone] Reason for Visit Reason Comments Back pain low Headache Encounter Details Date Type Department Care Team Description 10/02/2010 Office Visit [facility] Jamal Lanier Headache; Clinic - Lashell Guevara MD Low back pain; [address] [place] [address] Social History Tobacco Use Types Packs/Day Years Used Date Smoking Tobacco: Every Day Cigarettes 0.3 Sex Assigned at Date Recorded Not on file documented as of this encounter Last Filed Vital Signs Vital Sign Reading Time Taken Comments Blood Pressure 122/82 10/02/2010 11:02 AM CDT Pulse - - Temperature 36.6 ??C (97.8 ??F) 10/02/2010 11:02 AM CDT Respiratory Rate - - Oxygen Saturation - - Inhaled Oxygen Concentration - - Weight 95.5 kg (210 lb 9.6 oz) 10/02/2010 11:02 AM CDT Height 157.5 cm (5' 2) 10/02/2010 11:02 AM CDT Body Mass Index 38.52 10/02/2010 11:02 AM CDT documented in this encounter Progress Notes Jamal Lanier MD - 10/02/2010 12:18 PM CDT Subjective: HPI This is a 35 year old female who is here with headaches that occur daily for the past two months. Apparently, she is under the care of a psychiatrist, and she has not been able to get her medications for that same period of time. She quit them abruptly. She did not injure herself, no dizziness. She has taken tylenol and ibuprofen all my life and says it isn't helpful. She also has some issues with her back for which she has seen multiple doctors and is requesting pain medication for today. Mikael brought none of her old records. She has no other major new issues. Past medical, surgical, family, and social history reviewed. Review of Systems Constitutional: Negative. Eyes: Negative. Respiratory: Negative. Cardiovascular: Negative. Gastrointestinal: Negative. Musculoskeletal: Negative. Skin: Negative. Neurological: Positive for headaches. Hematological: Negative. Psychiatric/Behavioral: Positive for behavioral problem. Objective: Physical Exam Nursing note and vitals reviewed. Constitutional: She is oriented. She appears well-developed and well-nourished. HENT: Head: Normocephalic and atraumatic. Right Ear: External ear normal. Left Ear: External ear normal. Nose: Nose normal. Mouth/Throat: Oropharynx is clear and moist. Eyes: Conjunctivae and extraocular motions are normal. Pupils are equal, round, and reactive to light. Neck: Normal range of motion. Neck supple. Cardiovascular: Normal rate and regular rhythm. Pulmonary/Chest: Effort normal. Musculoskeletal: Normal range of motion. Lymphadenopathy: She has no cervical adenopathy. Neurological: She is alert and oriented. She has normal reflexes. No cranial nerve deficit. Skin: She has some abnormal hair growth on her upper lip. Psychiatric: Her behavior is normal. Judgment and thought content normal. Her affect is inappropriate. Her speech is rapid and/or pressured. Cognition and memory are normal. She is laughing at the end of every sentence whether there is an amusing quality to it or not. Assessment 1. Headache 2. Back pain 3. Bipolar disorder Plan: She is advised to have her meds filled by her psychiatrist or have her records sent here. Her presentation does not correspond well to her claim of severe headaches. Nevertheless, she is also advised to have her records for her back sent here. She was given samples of celebrex also. She will follow upin two weeks if her symptoms are not improved. Further evaluation will be done at that time. documented in this encounter Nursing Notes 10/02/2010 10:45 AM CDT >> MARIAN BRIONES Wed October 02, 2010 11:02 AM Maria Del Rosario Servin is a 35 y.o. female Patient presents with: Back pain - low Headache BP 122/82 Temp(Src) 97.8 ??F (36.6 ??C) (Oral) Ht 5' 2 (1.575 m) Wt 210 lb 9.6 oz (95.528 kg) Body mass index is 38.52 kg/(m^2). Marian Briones documented in this encounter Plan of Treatment Not on filedocumented as of this encounter Visit Diagnoses Diagnosis Headache(784.0) Headache Low back pain Lumbago Bipolar disorder (HCC) Bipolar disorder, unspecified documented in this encounter Care Teams Milk Inspector Relationship Specialty Start Date End Date Shannon Todd MD PCP - General [facility]08[facility]09 [facility]09 [address] [facility] [place] [address] documented as of this encounter
--- OUTSIDE RECORDS SUMMARY | 2022-01-24 09:48 | XMS_ITS | Encounter Summary ---
:1975 Author Organization [facility] Address [address] [place] [address] Care Team Providers Name Role Phone Jacques Alcantara MD Primary Care Provider Unavailable [facility] Family Phy Unavailable Unavailable Reason for Visit Reason Comments Back pain Encounter Details Date Type Department Care Team Description 12/17/2012 Office Visit [facility] Jacques Alcantara, Joselyn sks, herniated (Primary Dx); Clinic - [facility] Low back pain; [address] [facility] Depressio n with anxiety; [place] Bipolar disorder (HCC) [place], [place] [address] Social History Tobacco Use Types [...] Reading Time Taken Comments Blood Pressure 118/82 12/17/2012 10:08 AM CDT Pulse 64 12/17/2012 10:08 AM CDT Temperature 37 ??C (98.6 ??F) 12/17/2012 10:08 AM CDT Respiratory Rate 16 12/17/2012 10:08 AM CDT Oxygen Saturation - - Inhaled Oxygen Concentration - - Weight 86 kg (189 lb 9.6 oz) 12/17/2012 10:08 AM CDT Height 158.8 cm (5' 2.5) 12/17/2012 10:08 AM CDT Body Mass Index 34.13 12/17/2012 10:08 AM CDT documented in this encounter Progress Notes Jacques Alcantara MD - 12/17/2012 10:53 AM CDT SUBJECTIVE: 37 y.o. female for long standing back pain with acute flare up. Report that she is being managed by [facility] for L4-L5 herniated disk found on recent MRI. She recently started their back therapy program and reports that her back pain is worse. Denies any weakness or changes to bowel orbladder function. Reports that pain is b/l however L>R. Pain will radiate at times jem the back of her left leg. Reports at this time the pain is moderate to severe and affecting her all day. States that she has taken ibuprofen and tylenol with little improvement. Reports that she saw another care provider who prescribed gabapentin and she developed a rash so she stopped taking it. Denies any new injury. Current Outpatient Prescriptions Medication Sig Dispense Refill ??? predniSONE (DELTASONE) 20 mg Oral Tab Take 3 Tabs by mouth Once Daily. 9 Tab 0 ??? meloxicam (MOBIC) 7.5 mg Oral Tab Take 1-2 Tabs by mouth Once Daily. 60 Tab 1 ??? Gabapentin 100 mg Oral Tab Take 2 pills twice day 90 Tab 3 ??? LORazepam (ATIVAN) 0.5 mg Oral Tab Take 0.5 mg by mouth Twice a Day. ??? ziprasidone hcl (GEODON) 20 mg Oral Cap Take 20 mg by mouth Twice a Day. ??? cyclobenzaprine (FLEXERIL) 10 mg Oral Tab Take 1 Tab by mouth every 8 (eight) hours as needed for Muscle spasm (back pain). 20 Tab 0 ??? nicotine (NICODERM CQ) 21 mg/24 hr TD PT24 1 Patch by Transdermal route DAILY - APPLY PATCH. 14 Patch 2 ??? albuterol 90 mcg/actuation Inhl Aerosol 2 [...] a day as needed. 30 g 3 No current facility-administered medications for this visit. Allergies: Review of patient's allergies indicates no known allergies. No LMP recorded. Patient has had a hysterectomy. ROS: Feeling well other than above. Neuro as above. MSK as above. Managed by psychiatry for bipolar and anxiety. OBJECTIVE: The patient appears well, in NAD. BP 118/82 Pulse 64 Temp(Src) 98.6 ??F (37 ??C) Resp 16 Ht 1.588 m (5' 2.5) Wt 86.002 kg (189 lb 9.6 oz) BMI 34.1 kg/m2 ISAC. MS: Back: -Inspection: no obvious deformity. -Palpation: no tenderness along the spinous processes, Mild tenderness to the paraspinous muscles and soft tissue on right, Marked tenderness to the paraspinous muscles and soft tissue on left. - ROM: full to flexion, extension, side bends, rotation. Flexionexacerbates symptoms -Strength: full to knee flexion, knee extension, hip flexion, hip adduction, hip abduction, ankle dorsiflexion, ankle plantarflexion. -Special tests: straight leg raise produces noradiculopathy on the right however does produce radiculopathy on left, ASSESSMENT/PLAN: 1. Disks, herniated Discussed with pt will defer to PNB for treatment. Will start meloxicam as ibuprofen and aleve have not been effective. Discussed 3 days of steroid and counseled that it is expectedin the beginning of back therapy to have worsening symptoms for the 1st 2-3 weeks then symptoms should greatly improve. She expressed her understanding. 2. Low back pain As above. 3. Depression with anxiety Pt already prescribed ativan for anxiety. Discussed will not add muscle relaxer at this time. 4. Bipolar disorder Reviewed with pt concern Pt to return if sx change, sooner as needed. Options for treatment and follow-up care were reviewed with the patient and/or guardian. Maria Del Rosario Servin and/or guardian engaged in the decision making process and verbalized understanding of the optionsdiscussed and agreed with the final plan. documented in this encounter Plan of Treatment Not on filedocumented as of this encounter Visit Diagnoses Diagnosis Disks, herniated - Primary Low back pain Lumbago Depression with anxiety Dysthymic disorder Bipolar disorder (HCC) Bipolar disorder, unspecified documented in this encounter Care Teams Scoop Driver Relationship Specialty Start Date End Date Jacques Alcantara MD PCP - General Family Medicine 12/15/12 [facility], PCP - Primary Care Clinic 3 09/16/17 [facility] documented as of this encounter
--- OUTSIDE RECORDS SUMMARY | 2022-01-24 09:48 | XMS_ITS | Encounter Summary ---
:1975 Author Organization [facility] Address [address] [place] [address] Care Team Providers Name Role Phone Juan Jose Baxter PA-C Primary Care Provider Cristiano [facility] Unavailable [phone] Reason for Referral (Routine) - Closed Specialty Diagnoses / Procedures Referred By Contact Refer red To Contact Diagnoses Low back pain Juan Jose Baxter PA-C Procedures MRI SPINE LUMBAR W/O CONTRAST [address] [facility] [place] [place] [address] Referral ID Status Reason Start Date Expiration Date Visits Requ ested Visits Authorized [id number] Closed 10/28/2012 1 1 Reason for Visit Reason Comments Back pain follow up, pain is not getti ng any better Encounter Details Date Type Department Care Team Description 10/20/2012 Office Visit [facility] Juan Jose Baxter Lo w back pain ([facility] [place] [address] [place], [place] [address] [place], [place] [phone] Social History Tobacco Use Types Packs/Day Years [...] Sign Reading Time Taken Comments Blood Pressure 102/68 10/20/2012 4:36 PM CDT Pulse 70 10/20/2012 4:36 PM CDT Temperature - - Respiratory Rate 22 10/20/2012 4:36 PM CDT Oxygen Saturation - - Inhaled Oxygen Concentration - - Weight 84.7 kg (186 lb 12.8 oz) 10/20/2012 4:36 PM CDT Height 160 cm (5' 3) 10/20/2012 4:36 PM CDT Body Mass Index 33.09 10/20/2012 4:36 PM CDT documented in this encounter Patient Instructions Patient InstructionsSumin Coffman RN - 10/20/2012 5:07 PM CDT Referred to [facility] for an MRI of the Lumbar spine. Patient given phone number to call of [phone]. Offices in [place] and [place]. documented in this encounter Progress Notes Juan Jose Baxter PA-C - 10/20/2012 5:09 PM CDT See dict Maria Del Rosario was seen today for back pain. Diagnoses and associated orders for this visit: Low back pain - MRI ([facility]) SPINE LUMBAR W/O CONTRAST; Future - Gabapentin 100 mg Oral Tab; Start one at bedtime after 2 nights take one twice a day and then 2 pills twice a day Juan Jose Baxter PA-C - 10/20/2012 5:08 PM CDT CC: SUBJECTIVE: The patient is complaining of ongoing back pain. I had seen her recently and put her on an anti-inflammatory and muscle relaxant. She states it really has not helped. She states for the last two years she has had ongoing issues of low back and some buttock pain, but denied to have an MRI scan. No falls or trauma recently, but states she did have a back injury causing a break in her backwhen she was younger. She has not had bowel or bladder control issues. She has gone through multiplephysical therapy, chiropractic appointments, used anti-inflammatories, muscle relaxants and done home exercises to no avail. The patient has not been on any gabapentin for chronic pain. She does not request pain pills at this time. PHYSICAL EXAMINATION: GENERAL: Shows pleasant, no acute distress. MUSCULOSKELETAL: She points to the low lumbar area off to left midline slightly. No breaks in the skin. No rashes. No palpable pain. Straight leg raise is negative for radicular symptoms with back painat 45 degrees lying on the left leg. Straight leg raises sitting negative. Reflexes reduced +1 and symmetrical. Muscle strength in lower extremities +1 and symmetrical. No abdominal pulsations or mass.No tremors or leg weakness. ASSESSMENT: Chronic low back pain. PLAN: Schedule MRI. Start gabapentin. If MRI negative, continue gabapentin and consider pain clinic. Juan Jose Baxter PA-C /LD Dictation ID: [id number] documented in this encounter Plan of Treatment Not on filedocumented as of this encounter Results MRI ([facility]) SPINE LUMBAR W/O CONTRAST (10/28/2012 3:52 PM [...] Diagnosis Low back pain - Primary Lumbago Low back pain Lumbago documented in this encounter Care Teams Secret Service Agent Relationship Specialty Start Date End Date Juan Jose Baxter, PCP - General Physician Pipe Inspector 06/29/1212/14 [facility] Keyur Quinonez PCP - Primary Care Clinic 06/29/12 12/14/12 [place] [address] [place] [id number] documented as of this encounter
--- OUTSIDE RECORDS SUMMARY | 2022-01-24 09:48 | XMS_ITS | Encounter Summary ---
:1975 Author Organization [facility] Address [address] [place] [address] Care Team Providers Name Role Phone Shannon Todd MD Primary Care Provider Rehab, [facility] Unavailable Reason for Visit Reason Comments Rash on pt's chest x3d Encounter Details Date Type Department Care Team Description 11/05/2010 Office Visit [facility] Lulu Meneses Fung al infection of Clinic - [facility] skin (Primary Dx) [address] [place] [address] 53 Social History Tobacco Use Types Packs/Day Years Used Date Smoking Tobacco: Every Day Cigarettes 0.5 Smokeless Tobacco: Never Alcohol Use Standard Drinks/Week Comments Not Asked 0 (1 standard drink = 0.6 oz pure alcoho l) Sex Assigned at Date Recorded Not on file documented as of this encounter Last Filed Vital Signs Vital Sign Reading Time Taken Comments Blood Pressure 114/78 11/05/2010 1:02 PM CDT Pulse 84 11/05/2010 1:02 PM CDT Temperature 36.5 ??C (97.7 ??F) 11/05/2010 1:02 PM CDT Respiratory Rate 20 11/05/2010 1:02 PM CDT Oxygen Saturation - - Inhaled Oxygen Concentration - - Weight 92.8 kg (204 lb 9.6 oz) 11/05/2010 1:02 PM CDT Height 157.5 cm (5' 2) 11/05/2010 1:02 PM CDT Body Mass Index 37.42 11/05/2010 1:02 PM CDT documented in this encounter Progress Notes Lulu Meneses MD - 11/05/2010 2:15 PM CDT 35 y f Rash: Present on her breasts. She has not used any new detergents or soaps. The rash appears to be spreading and is itchy. The rest of her body is spared and there are no other lesions. Subjective: Review of Systems Constitutional: Negative. Skin: Itchy rash on breasts, as above. HENT: Negative. Eyes: Negative. Cardiovascular: Negative. Respiratory: Negative. Gastrointestinal: Negative. Genitourinary: Negative. Musculoskeletal: Negative. Endo/Heme/Allergies: Negative. Neurological: Negative. Psychiatric/Behavioral: Negative. Objective: Physical Exam Nursing note and vitals reviewed. Constitutional: Oriented and well-developed, well-nourished, and in no distress. HENT: Head: Normocephalic and atraumatic. Eyes: Conjunctivae and extraocular motions are normal. Neck: Normal range of motion. Neck supple. Musculoskeletal: Normal range of motion. Lymphadenopathy: No cervical adenopathy. Neurological: Alert and oriented. Gait normal. Skin: Skin is warm and dry. There are satellite lesions present on bilateral breasts, present diffusely without diffuse induration. Lesions are limited to the breasts and does not involve the axilla, medial chest region or the back. The skin folds are relatively spared. Past medical history, social and family history reviewed, no recent changes are noted. Assessment and Plan: Maria Del Rosario was seen today for rash. Diagnoses and associated orders for this visit: - Fungal infection of skin - Ketoconazole 2 % topical cream -- Apply to skin twice a day. - Hydrocortisone 2.5 % topical cream -- Apply to skin twice a day as needed. Advised that she keep the area clean and dry. Application of creams needed for at least two weeks, most likely. See encounter diagnosis See orders documented in this encounter Plan of Treatment Not on filedocumented as of this encounter Visit Diagnoses Diagnosis Fungal infection of skin - Primary Dermatomycosis, unspecified documented in this encounter Care Teams Instructor Creeler Relationship Specialty Start Date End Date Shannon Todd MD PCP - General 09/08/09 11/21/10 Rehab, [facility] PCP - Primary Care Clinic 09/08/[address] [place] [address] documented as of this encounter
--- OUTSIDE RECORDS SUMMARY | 2022-01-24 09:48 | XMS_ITS | Encounter Summary ---
:1975 Author Organization [facility] Address [address] [place] [address] Care Team Providers Name Role Phone Jcaques Alcantara MD Primary Care Provider Unavailable [facility] Unavailable Unavailable Reason for Visit Reason Comments Warts right foot Encounter Details Date Type Department Care Team Description 09/29/2013 Office Visit [facility] Jacques Alcantara Pl antar wart of right Clinic - [facility] foot (Primary Dx) [address] [place] [address] Social History Tobacco Use Types Packs/Day Years [...] Sign Reading Time Taken Comments Blood Pressure 106/68 09/29/2013 10:39 AM CDT Pulse 84 09/29/2013 10:39 AM CDT Temperature 36.6 ??C (97.9 ??F) 09/29/2013 10:39 AM CDT Respiratory Rate 16 09/29/2013 10:39 AM CDT Oxygen Saturation 96% 09/29/2013 10:39 AM CDT Inhaled Oxygen Concentration - - Weight 91.9 kg (202 lb 9.6 oz) 09/29/2013 10:39 AM CDT Height 158.8 cm (5' 2.5) 09/29/2013 10:39 AM CDT Body Mass Index 36.47 09/29/2013 10:39 AM CDT documented in this encounter Progress Notes Jacques Alcantara MD - 09/29/2013 10:53 AM CDT SUBJECTIVE: 38 y.o. female for plantar wart of right foot. States that it is improved from previous crytherapy but still present. Continues to be painful. Denies any other new lesion. Current Outpatient Prescriptions Medication Sig Dispense Refill [...] No dyspnea or chest pain on exertion. Plantar wart as above. OBJECTIVE: The patient appears well, in NAD. BP 106/68 Pulse 84 Temp(Src) 97.9 ??F (36.6 ??C) (Oral) Resp 16 Ht 1.588 m (5' 2.5) Wt 91.899 kg (202 lb 9.6 oz) BMI 36.44 kg/m2 SpO2 96% ISAC. 1cm plantar wart present of right lateral foot pad. Tender to palpation. Cryotherapy performed by Jacques Alcantara MD on 09/29/2013. PREPROCEDURE DIAGNOSIS: 1cm plantar wart present of right lateral foot pad. Tender to palpation. POSTPROCEDURE DIAGNOSIS: 1cm plantar wart present of right lateral foot pad. Tender to palpation. No anesthetic was used. Cryotherapy performed using liquid nitrogen and cryogun. 1 lesions were treated with 30 second freeze time. 2 freeze/thaw cycles performed. TISSUE REMOVED: none POST PROCEDURE STATUS:Stable COMPLICATIONS: none After cares reviewed with pt including likely blister formation and leave intact. Discussed with patient typical treatment regimen usually requires repeat treatments. ASSESSMENT/PLAN: Plantar wart of right foot - Plan: DESTRUCTION PREMALIGNANT LESION SINGLE - see procedure note above. Discussed with pt if not fully resolved in 4 weeks will treat likely with curettage and hyfrecationat next visit. Pt to return in 4 weeks sooner as needed. Options for treatment and follow-up care were reviewed with the patient and/or guardian. Maria Del Rosario Veliz Bucks and/or guardian engaged in the decision making process and verbalized understanding of the optionsdiscussed and agreed with the final plan. documented in this encounter Plan of Treatment Scheduled Orders Name Type Priority Associated Diagnoses Order S chedule DESTRUCTION PREMALIGNANT Procedures Routine Plantar wart of right Ordered: 09/29/2013 LESION SINGLE foot documented as of this encounter Visit Diagnoses Diagnosis Plantar wart of right foot - Primary Plantar wart documented in this encounter Care Teams Loan Workout Officer Relationship Specialty Start Date End Date Jacques Alcantara MD PCP - General Family Medicine 12/15/12 [facility], PCP - Primary Care Clinic 3 09/16/17 [facility] documented as of this encounter
--- OUTSIDE RECORDS SUMMARY | 2022-01-24 09:48 | XMS_ITS | Encounter Summary ---
:1975 Author Organization [facility] Address [address] [place] [address] Care Team Providers Name Role Phone Juan Jose Baxter PA-C Primary Care Provider Cristiano [facility] Unavailable [phone] Reason for Visit Reason Comments Back injury low back pain started 2 days ago Encounter Details Date Type Department Care Team Description 09/30/2012 Office Visit [facility] Juan Jose Baxter St rain of lumbar paraspinal muscle (Primary Dx); [facility] Smoking [address] [place] [address] [address] Armendariz [phone] Social History Tobacco Use Types Packs/Day Years Used Date Smoking Tobacco: Every Day Cigarettes 0.5 19 Smokeless Tobacco: Never Tobacco Cessation: Ready to Quit: Yes; C aleidansaraceli Given: Yes Alcohol Use Standard Drinks/Week Comments No 0 [...] Reading Time Taken Comments Blood Pressure 118/76 09/30/2012 1:18 PM CDT Pulse - - Temperature 36.9 ??C (98.4 ??F) 09/30/2012 1:18 PM CDT Respiratory Rate - - Oxygen Saturation - - Inhaled Oxygen Concentration - - Weight 84.4 kg (186 lb 2 oz) 09/30/2012 1:18 PM CDT Height 158.8 cm (5' 2.5) 09/30/2012 1:18 PM CDT Body Mass Index 33.5 09/30/2012 1:18 PM CDT documented in this encounter Progress Notes Juan Jose Baxter PA-C - 09/30/2012 1:40 PM CDT CC: SUBJECTIVE: A 37-year-old in with low back pain. She states she was helping her mom clean the house,bent over in a flexed position for quite some time and the next day was quite sore. It started in the last two days. No trauma, falls or injuries. No radicular symptoms, achy, sore, stiff. No bladder symptoms. She wants to quit smoking. She has a history of depression, anxiety and chronic mental illness, so I told her that the Chantix and really the Wellbutrin would not be good options. She has triedthe patch with some success, although she did not use it very long, would like to try that if possible. EXAM: Moves fairly easily, can flex to 90 degrees. She points to the low lumbar paraspinal area bilaterally. There is no rash and no palpable pain, no buttock pain. Straight leg raise is negative, lying and sitting reflexes. EXTREMITIES: Muscle strength +2 and symmetric. ABDOMEN: No abdominal pulsation or mass noted. ASSESSMENT: Lumbosacral back strain. Smoking. PLAN: Flexeril 10 mg t.i.d. p.r.n., cautioned drowsiness. Heat, no ice, gentle stretching when feeling better and recheck if not improving. Potential risks and side effects of medicine, especially withpsych meds discussed and minimize use if at all possible Nicoderm patch as prescribed. Can call for the next lower dose patch in the next few weeks if she would like. Juan Jose Baxter PA-C /RV Dictation ID: [id number] Juan Jose Baxter PA-C - 09/30/2012 1:40 PM CDT See dict Maria Del Rosario was seen today for back injury. Diagnoses and associated orders for this visit: Strain of lumbar paraspinal muscle - cyclobenzaprine (FLEXERIL) 10 mg Oral Tab; Take 1 Tab by mouth every 8 (eight) hours as needed forMuscle spasm (back pain). Smoking - nicotine (NICODERM CQ) 21 mg/24 hr TD PT24; 1 Patch by Transdermal route DAILY - APPLY PATCH. Other Orders - LORazepam (ATIVAN) 0.5 mg Oral Tab; Take 0.5 mg by mouth Twice a Day. - ziprasidone hcl (GEODON) 20 mg Oral Cap; Take 20 mg by mouth Twice a Day. documented in this encounter Plan of Treatment Not on filedocumented as of this encounter Visit Diagnoses Diagnosis Strain of lumbar paraspinal muscle - Ana balbir Sprain of lumbar region Smoking Tobacco use disorder documented in this encounter Care Teams Manager Psychiatry Relationship Specialty Start Date End Date Juan Jose Baxter, PCP - General Physician Director [facility] 06/29/1212/14 SONYA Keyur Serra PCP - Primary Care Clinic 06/29/12 12/14/12 [place] [address] [place] [address] documented as of this encounter
--- OUTSIDE RECORDS SUMMARY | 2022-01-24 09:48 | XMS_ITS | Encounter Summary ---
:1975 Author Organization [facility] Address [address] [place] [address] Care Team Providers Name Role Phone Jacques Alcantara MD Primary Care Provider Unavailable [facility] Unavailable Unavailable Reason for Referral (Routine) - Closed Specialty Diagnoses / Procedures Referred By Contact Refer red To Contact Diagnoses Pain in limb Robert Chapa DPM Procedures XR FOOT RT [address] [place] [address] [address] [place], [place] [address] Referral ID Status Reason Start Date Expiration Date Visits Requ ested Visits Authorized [id number] Closed 01/17/2014 07/16/2014 1 1 Reason for Visit Reason Comments Follow up Encounter Details Date Type Department Care Team Description 01/17/2014 Office Visit [facility] Vivian Chapa DPM Pain in limb (Primary Dx); Clinic - [address] Metatarsalgia, unspecified l aterality [address] [place] [address] [address] [place], [place] [phone] (Wo rk) Social History Tobacco Use Types [...] encounter Progress Notes Robert Chapa DPM - 01/18/2014 1:12 PM CDT SEE DICTATION FOR DETAILS OF EXAMINATION AND PLAN Robert Chapa DPM - 01/18/2014 11:30 AM CDT CC: SUBJECTIVE: The patient is a 38-year-old woman who presents to the clinic today for followup. She has no new concerns. She tried medication for the wart on the bottom of her foot and actually feels like it made no improvement or change. She is here to request surgery. She would like to have the area excised. She otherwise has no concerns. OBJECTIVE: GENERAL: She is awake and alert. She is in no distress. EXTREMITIES: The skin is warm and dry. DP and PT pulses are 1/4 with prompt capillary refill time. Sensation is intact. There continues to be a calloused lesion on the plantar aspect of the right fourth metatarsal head area. There is a deeply nucleated callus lesion here. There is no erythema, edema or ecchymosis. ASSESSMENT: Hyperkeratosis with metatarsalgia. PLAN: I examined her foot, ankle and leg and discussed treatment plan. I did review options with monse well as the plan of care. She understands what her options are. I encouraged her to try orthoticsand nonsurgical means, but she is unwilling to do this. She is here to discuss surgical planning. I did send her for plain film x-rays, and I placed a marker directly over where she gets this lesion and this confirms that it is directly underneath the fourth metatarsal head. I discussed metatarsal osteotomy, and we will likely debride the wound and possibly even excise this area during the procedure.She would like to schedule this soon. We will work on trying to get her on schedule in [place] for next available. She will then call with other concerns. She understands that she will be nonweightbearing for the early part of the recovery, followed by weightbearing in a Cam walker for up two to three months. Robert Chapa DPM / Dictation ID: [id number] documented in this encounter Plan of Treatment Not on filedocumented as of this encounter Results XR (JUICE) FOOT RT 3 VIEW (01/17/2014 12:59 PM [...] ormality is seen. IMPRESSION: Negative examination. Robert Chapa DPM XRAY ORDERABLE documented in this encounter Visit Diagnoses Diagnosis Pain in limb - Primary Metatarsalgia, unspecified laterality Pain in limb documented in this encounter Care Teams Senior Mobile Application Developer Relationship Specialty Start Date End Date Jacques Alcantara MD PCP - General Family Medicine 12/15/12 [facility] documented as of this encounter
--- OUTSIDE RECORDS SUMMARY | 2022-01-24 09:48 | XMS_ITS | Encounter Summary ---
:1975 Author Organization [facility] Address [address] [place] [id number] Care Team Providers Name Role Phone Shannon Todd MD Primary Care Provider Rehab, [facility] And Unavailable [phone] Reason for Visit Reason Comments Back pain low Encounter Details Date Type Department Care Team Description 11/19/2010 Office Visit [facility] Jamal Lanier Low back pain (Primary Clinic - Lashell Guevara MD Dx) [address] [place] [address] Social History Tobacco Use Types Packs/Day Years Used Date Smoking Tobacco: Every Day Cigarettes 0.5 Smokeless Tobacco: Never Alcohol Use Standard Drinks/Week Comments Not Asked 0 (1 standard drink = 0.6 oz pure alcoho l) Sex Assigned at Date Recorded Not on file documented as of this encounter Last Filed Vital Signs Vital Sign Reading Time Taken Comments Blood Pressure 130/88 11/19/2010 2:21 PM CDT Pulse - - Temperature 36.3 ??C (97.4 ??F) 11/19/2010 2:21 PM CDT Respiratory Rate - - Oxygen Saturation - - Inhaled Oxygen Concentration - - Weight 92.7 kg (204 lb 6.4 oz) 11/19/2010 2:21 PM CDT Height 157.5 cm (5' 2) 11/19/2010 2:21 PM CDT Body Mass Index 37.39 11/19/2010 2:21 PM CDT documented in this encounter Progress Notes Jamal Lanier MD - 11/19/2010 3:30 PM CDT Subjective: HPI This is a 35 yo female who has had low back pain off and on for years. She has tried ibuprofen, icy hot, and other otc meds to no avail. No other major new issues of note. Review of Systems Constitutional: Negative. HENT: Negative. Respiratory: Negative. Cardiovascular: Negative. Gastrointestinal: Negative. Genitourinary: Negative. Musculoskeletal: Negative. Neurological: Negative. Psychiatric/Behavioral: Negative. Objective: Physical Exam Nursing note and vitals reviewed. Constitutional: She is oriented. She appears well-developed and well-nourished. HENT: Head: Normocephalic and atraumatic. Eyes: Pupils are equal, round, and reactive to light. Neck: Normal range of motion. Cardiovascular: Normal rate and regular rhythm. Pulmonary/Chest: Effort normal. Abdominal: Soft. Neurological: She is alert and oriented. Assessment/Plan: Maria Del Rosario was seen today for back pain. Diagnoses and associated orders for this visit: - Low back pain - Mri spine lumbar w/o contrast nmhc -- Future documented in this encounter Nursing Notes 11/19/2010 2:30 PM CDT >> ANNA Rizo Nov 19, 2010 2:22 PM Maria Del Rosario Servin is a 35 y.o. female Patient presents with: Back pain - low BP 130/88 Temp(Src) 97.4 ??F (36.3 ??C) (Oral) Ht 5' 2 (1.575 m) Wt 204 lb 6.4 oz (92.715 kg) Body mass index is 37.39 kg/(m^2). Anna Benito documented in this encounter Plan of Treatment Not on filedocumented as of this encounter Visit Diagnoses Diagnosis Low back pain - Primary Lumbago documented in this encounter Care Teams Tool And Die Maker Relationship Specialty Start Date End Date Shannon Todd MD PCP - General 09/08/09 11/21/10 Rehab, [facility] And PCP - Primary Care Clinic 09/08/09 [address] [place] [address] documented as of this encounter
--- OUTSIDE RECORDS SUMMARY | 2022-01-24 09:49 | XMS_ITS | Encounter Summary ---
:[address] [facility] Address [address] [place] [address] Care Team Providers Name Role Phone Shannon Todd MD [facility] [phone] Encounter Details Date Type Department Care Team Description 09/19/2009 Surgery [facility] Poppy Kaufman ROCEDURE: LAPAROSCOPIC Operating Room MD Makayla SUPRACERVICAL [address] [place] [address] Dr Marie HYSTERECTOMY WITH LYSIS [place], [place] [address] 2 205 OF ADHESIONS [phone] [place], [place] [id number] (Wo rk) Surgery Details Date/Time Status Location OR Service Patient Case Class Case Type Trauma Class Case? 09/19/09 7:30 Posted [facility] ORS 02 Gynecology Same Day AM Surgery Panel 1 Procedure LRB Anes Op Region Wound Class Commen ts PROCEDURE: N/A General Pelvis Clean Contaminated PROCED URE: LAPAROSCOPIC (II) LAPAROSCOPIC SUPRACERVICAL SUPRACERVIC AL HYSTERECTOMY WITH HYSTERE CTOMY WITH LYSIS OF ADHESIONS LYSIS OF ADHESIONS Surgeon Surgeon Role Service Panel Poppy Kaufman MD Primary Gynecology 1 documented in this encounter Social History Tobacco Use Types Packs/Day Years Used Date Smoking Tobacco: Every Day Cigarettes 0.3 Sex Assigned at Date Recorded Not on file documented as of this encounter Last Filed Vital Signs Vital Sign Reading Time Taken Comments Blood Pressure 124/84 09/19/2009 11:00 AM CDT Pulse 64 09/19/2009 11:00 AM CDT Temperature 36.3 ??C (97.4 ??F) 09/19/2009 9:50 AM CDT Respiratory Rate 20 09/19/2009 11:00 AM CDT Oxygen Saturation 93% 09/19/2009 11:00 AM CDT Inhaled Oxygen Concentration - - Weight 111.6 kg (246 lb) 09/19/2009 6:52 AM CDT Height 157.5 cm (5' 2) 09/19/2009 6:52 AM CDT Body Mass Index 44.99 09/19/2009 6:52 AM CDT documented in this encounter Discharge Instructions Discharge InstructionsLorenza Roberts RN - 09/19/2009 9:24 AM CDT Smoking and second-hand smoke exposure: If you or anyone in your home smokes, we strongly recommend that you stop for your health and that of your family. Please talk with your health care provider about your best treatment options. No matter what your age or how long you've smoked, quitting will help you live longer. For further assistanceplease call the [facility]pline at [phone])-[phone] or go to their website www.[employer]. Discharge Procedure Orders Notify Provider CONTACT the doctor if you have any of the following: Temperature of 101' or higher or chills.Prolonged nausea or vomiting.Increased drainage or bleeding.Increased tenderness or swelling.Pain not relieved by medication.Call [phone] if symptoms are severe or life threatening. Discharge Instructions (Sedation/Anesthesia) Today you were given medicine for pain or sedation. This medicine can cause you to: be sleepy, not think clearly, feel less coordinated. For 24 hours after receiving the medicine: have an adult stay with you. Remain at home and rest during that time. You may not return to work. Do not smoke. Be careful when you bathe, shower, cook, or use electrical devices. Avoid rapid movement as dizziness may result. Begin eating light foods, such as cereal or toast. Resume usual diet. Do not drink alcohol for 24hours. Do not drive or operate any heavy equipment. Delay important decision-making. Don't sign any important papers. No pain meds or sleeping pills for 4 hours after last dose given before discharge. Discharge Instructions No heavy lifting and nothing in vagina for 2 weeks Dressing Change Remove dressing in 1-2 days. Discharge Discharge patient when alert and stable per outpatient criteria. Disposition? Returning Home/Self Care Expected discharge date? 09/19/2009 Diet: Regular Follow Up Call for an appt [phone] Provider / Clinic Phone Number? Dr Kaufman Specify time frame for follow up? two weeks Contact your Primary Care Physician with any questions regarding your current medications. Written Material: Discharge instructions and prescription Community Services/Referrals: NA IV access removed: Yes Valuables/Belongings returned: Yes documented in this encounter Medications at Time of Discharge Medication Sig Dispensed Refills Start Date End Date aripiprazole (ABILIFY) 5 Take by mouth 0 06/08/2012 mg Oral Tab daily. oxycodone-acetaminophen Take 1-2 Tabs by 30 0 200910/02/2010 (PERCOCET) 5-325 mg Oral mouth every 4 Tab (four) hours as needed for Pain. pain for pain quetiapine (SEROQUEL) 300 Take 300 mg by 0 03/19/2011 mg Oral Tab mouth daily. documented as of this encounter H&P Notes Scanned Doc - 09/20/2009 10:41 AM CDT Poppy Kaufman MD - 09/19/2009 7:39 AM CDT ADMISSION HISTORY AND PHYSICAL UPDATE No changes or additions to current H&P. Poppy Kaufman MD documented in this encounter Nursing Notes Veronica Boo RN - 09/19/2009 11:26 AM CDT S/B: Pt ready for discharge post lap hysterectomy. A: VSS, pain minimal, abd soft, no ecchymosis, no hematoma. Denies nausea. Minimal vag bleeding. R: Pt and family verbalized understanding of the discharge instructions. Prescriptions given to family member/friend. Discharged via wheelchair to vehicle. Veronica Boo RN - 09/19/2009 9:45 AM CDT S/B/A: Pt meets PACU criteria for discharge, VSS, no change in previous assessment. Abd soft withoutecchymosis or hematoma. States pain at acceptable level to go to Phase II. R: Transferred to [facility] per cart. Face to face SBAR report to RN receiving care of patient. N Boo RN - 09/19/2009 9:24 AM CDT S/B: Pt s/p laparoscopic supracervical hysterectomy under general anesthesia. To PACU-3 per cart from OR. Placed on full monitors throughout recovery. PMH: Asthma, smoker, mental health issues. Previous pertinent surgeries: , tubal. Pertinent meds: Seroquel, Requip, and Abilify. A: Incision: Abd x3 to abdomen, covered with bandaids, C/D/I. Dressing: Mary pad, dry. Pain: Treatedt/o recovery. Nausea: denies. VSS. O2 saturation level: 99 on RA. Abd: Soft, non-tender. No ecchymosis, no hematoma. R: Continue monitoring. N Roberts RN - 09/19/2009 9:23 AM CDT INSTRUCTIONS FOR NURSING DISCHARGE NAVIGATOR Note: If you are doing a telephone order for discharge, go to the action menu, select MD Navigators,and select the appropriate discharge wizard. Then come back here to complete the discharge process. There are two sections to the Discharge Navigator: Nursing Discharge organizes information the nurse needs to review or complete prior to any inpatientdischarge. This section is completed any time a patient is discharged. Discharge Instructions allows you to prepare printed discharge information for the patient. The typeof discharge & the related physician order set assist you to determine patient requirements for use of the discharge instruction section. 1. If the patient is being discharged and readmitted to another [facility] unit, you don't need to complete the Discharge Instructions section. 2. If the discharge is to another facility - e.g. discharge to skilled care, you will need to print two reports from the Patient Summary activity. To print, select the appropriate report and click on the Print button in the upper right corner. a. The [employer] MD report prepares a copy of the MD transfer orders. It needs to be printed and signed by the ordering MD prior to the patient leaving. Make a copy of the signed form for the paper chart. b. The [employer] RN report pulls information about the patient???s status and nursing care needs from documentation on flow sheet rows. Once it is printed, the RN reviews the information, updates it or adds additional information, and signs the bottom of the form prior to the patient leaving. Make a copy of the signed form for the patient chart. 3. If the discharge is to home with a home care referral, the [employer] MD report needs to be printed from the patient summary activity and signed by the MD. Place the signed copy in the patient's shadow chart for the home care agency. Also, complete the Discharge Instructions section following the steps below. 4. If the patient is being discharged to home, you do need to complete the Discharge Instructions section. a. Select the Patient Ed/Synacoredix and Dexcom hyperlinks as needed, to print educational materials and/or medication instructions for your patient. b. Select Discharge Inst section of the navigator to complete and print the discharge summary for the patient. i. MD discharge instructions will be pulled in automatically. They originate from the discharge order set and the medication reconciliation activity. ii. Any discharge instruction notes written by clinical disciplines within this discharge activity will also be pulled in as part of the instructions. iii. The nurse completes the appropriate nsg dc smart text when the patient is ready to be discharged. iv. Print the D/C Instructions. Two copies will automatically print - one for the patient to take home and one to be signed by the patient and nurse. Place signed copy in shadow chart. Lorenza Roberts RN - 09/19/2009 7:19 AM CDT S: Admitting to [facility]. B: Laparoscopic LSH/BSO A: IV started, prep done, MD explained risks and benefits to procedure, consent signed. R: Brewery Technician and OR nurse here. Pt left for OR. Marleny Leija RN - 09/12/2009 3:06 PM CDT [facility] Dr. Todd 09/13/09 documented in this encounter OR Notes OR Anesthesia - Trace Russell MD - 09/19/2009 9:38 AM CDT 9:38 AM I participated in the induction, intubation, positioning of this pt which went without problems. Trace Russell MD 9:38 AM I was present during emergence. Trace Russell MD POST ANESTHESIA CARE NOTE Oma Encarnacion underwent LSH under General Anesthesia. The patient received intravenous and inhaled agents, narcotic analgesics and antiemetics. The patient is arousable and appropriate. Vital signs are stable. Pain is adequately controlled. Cardiopulmonary status is stable. The patient is recovering satisfactorily from her anesthesia. Attestation: I (or a Partner) was present during all critical events, including, where applicable, induction and emergence; I remained immediately available and provided indicated post operative care for this patient. Trace Russell MD 09/19/2009 9:38 AM OR Surgeon - Poppy Kaufman MD - 09/19/2009 9:00 AM CDT OPERATIVE REPORT Hospital: [facility] Reporting Physician: Poppy Kaufman MD Primary Care Physician: [facility], Shannon Todd MD Patient: Oma Encarnacion : 1975 Date of Procedure/Consult: 09/19/2009 SURGEON: Poppy Kaufman MD COMMUNICATIONS MEDIA PROFESSOR SURGEON: Shannan Mason MIDWIFE PRACTITIONER, CASTING CLEANER REPORT OF OPERATION: PREOPERATIVE DIAGNOSIS: DX: PELVIC PAIN POSTOPERATIVE DIAGNOSIS: same, plus abdominal and pelvic adhesions PROCEDURE PERFORMED: Laparoscopic supracervical hysterectomy, lysis of adhesions. DESCRIPTION OF SURGERY: On the morning of 09/19/2009, the patient was brought to the operating room and placed in the supine position. General anesthesia was induced, and she was intubated. Her legs were elevated in the Yellofin stirrups, and she was prepped and draped in the usual manner for a laparoscopic supracervical hysterectomy. A speculum was placed in the vagina, a single-tooth tenaculum placed on the anterior lip of the cervix, a HUMI intrauterine manipulator was placed, and the balloon was insufflated. The tenaculum and speculum were removed, and the HUMI was draped. Gloves were changed. About 2 mL of 0.25% Marcaine with epinephrine was injected just under the umbilicus, and a 5-mm skin incision was made. Then under direct visualization, a 5-mm port was placed. The gas was connected, patit pneumoperitoneum was insufflated. In the left lower quadrant, approximately 2 mL of 0.25% Marcainewas injected in a vessel-free area, a 13-14 mm skin incision was made, and a 12-mm port was placed under direct visualization. There was a significant amount of adhesions from the omentum to the anterior abdominal wall and uterus to the anterior abdominal wall. These were lysed without difficulty using the harmonic scalpel. This added an additional 15 min to the procedure. A 5-mm port was then placed, in the same manner to the previous one, in the right lower quadrant, again after injecting 2 mL 0.25% Marcaine and making a small incision. This was also done under direct visualization. The pelvis and abdomen were further inspected and were otherwise normal without evidence of endometriosis. The tubes had evidence of previous sterilization and the ovaries were unremarkable. Using the Harmonic Scalpel, we did the left side first, by ligating the uteroovarian ligament on that side, then the fallopian tube and the round ligament. We then opened up the broad ligament on thatside and then took the bladder down off the lower portion of the uterus with the Harmonic Scalpel. We then used the Harmonic Scalpel to seal off and ligate the uterine artery vessels on the that side. We then took the Harmonic Scalpel, put it in through the opposite port, and did the same thing on theother side with the uteroovarian ligament, the round ligament, the broad ligament, the uterine artery vessels, and also moving the bladder down on that side too. We then removed the HUMI and used the Harmonic Scalpel to amputate the uterus at the level of the cervix, after making certain the bladder was out of the way. Bipolar cautery on a setting of 40 syed, was used to obtain hemostasis on the cervical stump, and the other pedicles as needed. It was also used to fulgerate the endocervical canal. After achieving hemostasis, we removed the 12-mm port and placed the morcellator and then morcellatedthe uterus without difficulty. The specimen was sent to pathology. The pedicles and cervical stump were inspected. Everything was hemostatic. After suctioning out the blood and rinsing the pelvis, a piece of Interceed was placed over the cervical stump . The instruments were removed. The gas was allowed to escape. The ports were removed, and the incisions were closed with a deep figure-of-X stitch of0 Vicryl suture to the fascia of the larger lower quadrant incision, and then a running subcuticular4-0 Vicryl to the skin on that incision too. The other two incisions were closed with interrupted stitches of 4-0 Vicryl suture. Sterile Band-Aids were placed. Sponge and needle counts were correct. The patient tolerated the procedure well and was awakened in the operating room and taken to the recovery room in good condition. Estimated Blood Loss (ml): 25cc Poppy Kaufman MD OR Anesthesia - Trace Russell MD - 09/18/2009 9:08 PM CDT PRE-OPERATIVE SURVEY OF SCIP MEASURES: SURGICAL PROCEDURE: LSH/BSO HAIR REMOVAL REQUIRED? YES REMOVAL METHOD: ELX SHAVER PRE-OPERATIVE ANTIBIOTIC(S) ORDERED?: YES DRUG 1: ceFAZolin ( ANCEF ) 1 g DRUG 2: CHRONIC BETA-OMAR USE?: NO IF YES: MARY-OPERATIVE ADMINISTRATION NECESSARY?: N IF NO, WHY NOT?: N IF YES: MARY-OPERATIVE DOSING REGIMEN PLANNED: N PRE-OPERATIVE ANTI-COAGULATION ORDERED?: N INTRA-OPERATIVE SEQUENTIAL STOCKINGS ORDERED?: YES INTRA-OPERATIVE SURFACE WARMING PLANNED?: YES Trace Russell MD 9:08 PM OR Anesthesia - Trace Russell MD - 09/18/2009 8:56 PM CDT ANESTHESIOLOGY PRE-OPERATIVE ASSESSMENT Oma Encarnacion is a 34 y.o. scheduled for a LSH/BSO today. Review of systems is non-contributory for anesthetic reactions, hyperthermia or bleeding tendencies. EKG: Pending my review. PE Airway Class: 2 Chest: Clear to auscultation. Heart: Regular rate and rhythm without murmur, rub. Assessment: ASA physical status score: II = Patient with mild systemic disease. Risk of PONV: high Plan: The patient will have General anesthesia. Airway management: an endotracheal tube. PONV Prophylaxis: D/Z Anesthetic monitoring: routine. Post operative analgesia: per surgeon. Anesthetic care was discussed including the risks benefits, alternatives and likely outcomes. All questions were answered and patient accepts the outlined risks. 8:56 PM Trace Russell MD documented in this encounter Miscellaneous Notes HIM Scans - Scanned [facility] - 09/20/2009 10:43 AM CDT HIM Scans - Scanned [facility] - 09/20/2009 10:43 AM CDT HIM Scans - Scanned [facility] - 09/20/2009 10:43 AM CDT HIM Scans - Scanned [facility] - 09/20/2009 10:43 AM CDT HIM Scans - Scanned [facility] - 09/20/2009 10:41 AM CDT HIM Scans - Scanned [facility] - 09/20/2009 10:41 AM CDT [facility] Scans - Scanned [facility] - 09/20/2009 10:40 AM CDT [facility] Scans - Scanned [facility] - 09/20/2009 10:40 AM CDT documented in this encounter Plan of Treatment Scheduled Referrals Name Type Priority Associated Diagnoses Order S chedule Follow Up Follow Up Routine Ordered: 2009 documented as of this encounter Procedures Procedure Name Priority Date/Time Associated Comments Diagnosis SURGICAL PATHOLOGY Routine 09/19/2009 4:27 PM Res ults for this CDT procedure are i n the results section. LAPAROSCOPIC 09/19/2009 7:32 AM Dx: Pelvic pain HYSTERECTOMY CDT SUPRACERVICAL HCG URINE STAT 09/19/2009 6:42 AM Results f or this CDT procedure are i n the results section. documented in this encounter Results Surgical Pathology (09/19/2009 4:27 PM CDT) P athologist Signature SURGICAL [facility] Comment: [facility]ology [facility] [address] [place] [address] ?? [phone] Fax: ?? SURGICAL PATHOLOGY REPORT Patient Name: OMA ENCARNACION Specimen No: [id number] Room No: SDS-WEATHERIZATION INSTALLER Age: ??34 Sex: F Taken: 09/19/2009 Med. R ec. 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 ??The fragments are sectioned and appear gross ly unremarkable. ??RS-4. (RJ) MICROSCOPIC Performed. Conclusion Uterus, supracervical laparoscopic hyste rectomy ??No pathologic diagnosis. ? Electronically Signed Out jmb/09/20/2009 Vielka Grey MD ?? Specimen Anatomical Collection Method Collection Time Receive d Time (Source) Location / / Volume Laterality 09/19/2009 4:27 PM 0 4:27 CDT PM CDT Poppy Kaufman MD PATHOLOGY/CYTOLOGY ORDERABLE Performing Organization Address City/State/ZIP Code Phon e Number [facility] [address] [place] [address] LABORATORY [facility] [address] [place] [address] HCG Urine (09/19/2009 6:42 AM CDT) P athologist Signature HCG URINE Negative [facility] Specimen Anatomical Collection Method Collection Time Receive d Time (Source) Location / / Volume Laterality Urine specimen 09/19/2009 6:42 AM 010 6:44 (specimen) CDT AM CDT Poppy Kaufman MD URINE ORDERABLE Performing Organization Address City/State/ZIP Code Phon e Number [facility] [address] [place] [address] [facility] documented in this encounter Visit Diagnoses Not on filedocumented in this encounter Administered Medications Inactive Administered Medications - up to 3 most recent administrations Medication Order MAR Action Action Date Dose Rate Site bupivacaine 0.25%-epinephrine Given 09/19/2009 8:35 AM CDT 14 mL Procedural 1:200,000 injection 50 mL 50 mL, Injection, INTRA-PROCEDURE ONE TIME DOSE NEEDED, 1 dose, Starting on Thu09/19/09 at 0817, Until Thu09/19/09 at 0835, per procedure ceFAZolin ( ANCEF ) 1 g in D5W 50 mL IV Given 09/19/2009 7:18 AM CDT 1 g piggyback 1 g, Intravenous, ONCE ON INDUCTION, 1 dose, Starting on Thu09/19/09 at 0637, Until Thu09/19/09 at 0718, Administer over 30 Minutes cellulose, oxidized ( Given by Provider 09/19/2009 8:36 AM 1 Pad Procedural INTERCEED,SURGICEL ) 3x 4 (Comment) CDT pads topical, INTRA-PROCEDURE ONE TIME DOSE NEEDED, 1 dose, Starting on Thu09/19/09 at 0825, Until Thu09/19/09 at 0836, Procedure DEXAMETHASONE 4 MG/ML INJECTION Given 09/19/2009 7:40 AM CDT mg 1 dose, Starting on Thu09/19/09 at 0721, Until Thu09/19/09 at 0721 fentanyl (SUBLIMAZE) injection 25-50 mcg Given 09/19/2009 9:08 AM CDT 50 mcg 25-50 mcg, Intravenous, EVERY 5 MINUTES NEEDED, 8 doses, Starting on Thu09/19/09 at 0903, Until Mikala 09/20/09 at 1238, for acute surgical pain Given 09/19/2009 9:06 AM CDT 50 mcg HYDROmorphone (PF) (DILAUDID) syringe 0. 2 mg Given 09/19/2009 9:39 AM CDT 0.2 mg 0.2 mg, Intravenous, EVERY 5 MINUTES NEEDED, 10 doses, Starting on Thu09/19/09 at 0903, Until Mikala 09/20/09 at 1238, for post acute pain management Given 09/19/2009 9:29 AM CDT 0.2 mg Given 09/19/2009 9:19 AM CDT 0.2 mg ketorolac (TORADOL) injection (conc: 30 mg/mL) Given 0 09/19/2009 9:07 AM CDT 30 mg 30 mg 30 mg, Intravenous, ONCE, 1 dose, On Thu09/19/09 at 0915, Maximum duration of treatment is 5 days. lactated ringers (LR) IV bolus New Bag 09/19/2009 7:03 AM CDT 1,00 0 mL 25 mL/hr infusion 1,000 mL 1,000 mL, Intravenous, CONTINUOUS, Starting on Thu09/19/09 at 0645, Until Thu09/19/09 at 0903 lactated ringers (LR) IV infusion New Bag 09/19/2009 9:15 AM CDT mL 100 mL/hr at 100 mL/hr, Intravenous, CONTINUOUS, Starting on Thu09/19/09 at 0915, Until Mikala 09/20/09 at 1238 METOCLOPRAMIDE 5 MG/ML INJECTION Given 09/19/2009 7:35 AM CDT mg 1 dose, Starting on Thu09/19/09 at 0721, Until Thu09/19/09 at 0721 ONDANSETRON HCL (PF) 4 MG/2 ML INJECTION Given 09/19/2009 8:00 AM CDT mg 1 dose, Starting on Thu09/19/09 at 0721, Until Thu09/19/09 at 0721 oxycodone-acetaminophen (PERCOCET) 5 Given 09/19/2009 9:56 AM CD T 2 tablets mg-325 mg tablet 1-2 Tab 1-2 tablet, oral, ONCE NEEDED, Starting on Thu09/19/09 at 0903, Until Mikala 09/20/09 at 1238, pain, for moderate pain if has post surgical prescription per surgeon documented in this encounter Active and Recently Administered Medications Times are shown in CDT. Scheduled Medication Order 09/17/2009 09/18/2009 09/19/2009 ceFAZolin ( ANCEF ) 1 g in D5W 50 mL IV piggyback (COMPLETED) 717 (Given - Provider: Lorenza Roberts RN) 1 g, Intravenous, ONCE ON INDUCTION, 1 d ose, Starting on Thu09/19/09 at 0637, Until Thu09/19/09 at 0718, Administer over 30 Minutes ketorolac (TORADOL) injection (conc: 30 mg/mL) 30 mg (COMPLETED) 906 (Given - Provider: Veronica Boo RN) 30 mg, Intravenous, ONCE, 1 dose, On Thu09/19/09 at 0915, Maximum duration of treatment is 5 days. Continuous Medication Order 09/17/2009 09/18/2009 09/19/2009 lactated ringers (LR) IV bolus infusion 1,000 mL (CANCELED) 07 (New Bag - Provider: Lorenza Roberts RN) 1,000 mL, Intravenous, CONTINUOUS, Start ing on Thu09/19/09 at 0645, Until Thu09/19/09 at 0903 lactated ringers (LR) IV infusion (CANCELED) 15 (New Bag - Provider: Veronica Boo RN) at 100 mL/hr, Intravenous, CONTINUOUS, S tarting Thu09/19/09 at 0915, Until Discontinued PRN Medication Order 09/17/2009 09/18/2009 09/19/2009 bupivacaine 0.25%-epinephrine 1:200,000 injection 50 mL (COMPLET ED) 0835 (Given - Provider: Tabby Richardson RN) 50 mL, Injection, INTRA-PROCEDURE ONE TI ME DOSE NEEDED, 1 dose, Starting on Thu09/19/09 at 0817, Until Thu09/19/09 at 0835, per procedure cellulose, oxidized ( INTERCEED,SURGICEL ) 3x 4 pads (COMPLETE D) 0836 (Given by Provider (Comment) - Provider: Tabby Richardson RN) topical, INTRA-PROCEDURE ONE TIME DOSE A S NEEDED, 1 dose, Starting on Thu09/19/09 at 0825, Until Thu09/19/09 at 0836, Procedure fentanyl (SUBLIMAZE) injection 25-50 mcg (CANCELED) 905 (Given - Provider: Veronica Boo RN)907 (Given - Provider: Veronica Boo RN) 25-50 mcg, Intravenous, EVERY 5 MINUTES NEEDED, 8 doses, Starting Thu09/19/09 at 0903, Until Discontinued, for acute surgical pain, This medication has a Blackbox Warning. Click the [facility] Formulary reference link for more information. HYDROmorphone (PF) (DILAUDID) syringe 0.2 mg (CANCELED) 918 (Given - Provider: Veronica Boo RN)09 (Given - Provider: Veronica Boo RN)09 (Given - Provider: Veronica Boo RN) 0.2 mg, Intravenous, EVERY 5 MINUTES NEEDED, 10 doses, Starting Thu09/19/09 at 0903, Until Discontinued, for post acute pain management oxycodone-acetaminophen (PERCOCET) 5 mg-325 mg tablet 1-2 Tab (C ANCELED) 0956 (Given - Provider: Lorenza Roberts RN) 1-2 Tab, Oral, ONE TIME DOSE NEEDED, Starting Thu09/19/09 at 0903, Until Thu09/19/09 at 2102, for moderate pain if has post surgical prescription per surgeon No Frequency Medication Order 09/17/2009 09/18/2009 09/19/2009 DEXAMETHASONE 4 MG/ML INJECTION (COMPLETED) 739 (Given - Provider: Yury Rivera) 1 dose, Starting on Thu09/19/09 at 0721, Until Thu09/19/09 at 07 21 METOCLOPRAMIDE 5 MG/ML INJECTION (COMPLETED) 07 (Given - Provider: Yury Rivera) 1 dose, Starting on Thu09/19/09 at 0721, Until Thu09/19/09 at 07 21 ONDANSETRON HCL (PF) 4 MG/2 ML INJECTION (COMPLETED) 0800 (Given - Provider: Yury Rivera) 1 dose, Starting on Thu09/19/09 at 0721, Until Thu09/19/09 at 07 21 documented in this encounter Care Teams Paddock Judge Relationship Specialty Start Date End Date Shannon Todd MD PCP - General 09/08/09 11/21/10 Rehab, [facility] And PCP - Primary Care Clinic 09/08/[address] [place] [address] documented as of this encounter
--- OUTSIDE RECORDS SUMMARY | 2022-01-24 09:49 | XMS_ITS | Encounter Summary ---
:1975 Author Organization [facility] Address [address] [place] [address] Care Team Providers Name Role Phone Shannon Todd MD [facility] [phone] Reason for Referral Specialty Diagnoses / Procedures Referred By Contact Refer red To Contact Poppy Kaufman MD [address] [place] [address] Dr [address] [place] [address] 0151 6 Referral ID Status Reason Start Date Expiration Date Visits Requ ested Visits Authorized Question Answer Provider / Clinic Phone Number? Dr Kaufman Specify time frame for follow up? two weeks Comments Call for an appt [phone] Encounter Details Date Type Department Care Team Description 09/19/2009 Hospital Encounter Patient Care Center Poppy Kaufman [address] [facility] MD [place]ALIS [place] [address] [place] [address] Dr Marie [phone] [place] [address] (Wo rk) Social History Tobacco Use Types [...] live longer. For further assistanceplease call the [employer] Helpline at [phone])-442-LOVD or go to their website [email or web address]. Discharge Procedure Orders Notify Provider CONTACT the doctor if you have any of the following: Temperature of 101' or higher or chills.Prolonged nausea or vomiting.Increased drainage or bleeding.Increased tenderness or swelling.Pain not relieved by medication.Call [phone] if symptoms are severe or life threatening. [...] Regular Follow Up Call for an appt [phone] Provider / Clinic Phone Number? Dr Kaufman [...] go to Phase II. R: Transferred to [facility] per cart. Face to face SBAR [...] No ecchymosis, no hematoma. R: Continue monitoring. NYT Lorenza Roberts RN - 09/19/2009 9:23 AM CDT [...] is being discharged and readmitted to another [facility] unit, you don't need to complete the Discharge Instructions section. 2. If the discharge is to another facility - e.g. discharge to skilled care, you will need to print two reports from the Patient Summary activity. To print, select the appropriate report and click on the Print button in the upper right corner. a. The [employer] MD report prepares a copy of the [...] Discharge Instructions section. a. Select the Patient Ed/2Win-Solutionsedix and OneCard hyperlinks as needed, to print educational materials [...] 09/19/2009 7:19 AM CDT S: Admitting to [facility]. B: Laparoscopic LSH/BSO A: IV started, prep done, MD explained risks and benefits to procedure, consent signed. R: Administrative Assistant Coordinator and OR nurse here. Pt left for OR. Marleny Leija RN - 09/12/2009 3:06 PM CDT [facility] Dr. Todd 09/13/09 documented in this encounter [...] 09/19/2009 9:00 AM CDT OPERATIVE REPORT Hospital: [facility] Reporting Physician: Poppy Kaufman MD Primary Care Physician: [facility], Shannon Todd MD Patient: Oma Encarnacion : 1975 Date of Procedure/Consult: 09/19/2009 SURGEON: Poppy Kaufman MD MINE CAR DISPATCHER SURGEON: Shannan Mason MANUFACTURING ENGINEERING TECHNOLOGIST, HVAC MECHANIC REPORT OF OPERATION: PREOPERATIVE DIAGNOSIS: DX: PELVIC [...] port was placed. The gas was connected, patti pneumoperitoneum was insufflated. In the left lower [...] Poppy Kaufman MD OR Anesthesia - Trace Rsusell MD - 09/18/2009 9:08 PM CDT PRE-OPERATIVE [...] encounter Miscellaneous Notes HIM Scans - Scanned [facility] - 09/20/2009 10:43 AM CDT HIM Scans - Scanned [facility] - 09/20/2009 10:43 AM CDT HIM Scans - Scanned [facility] - 09/20/2009 10:43 AM CDT HIM Scans - Scanned [facility] - 09/20/2009 10:43 AM CDT HIM Scans - Scanned [facility] - 09/20/2009 10:41 AM CDT HIM Scans - Scanned [facility] - 09/20/2009 10:41 AM CDT HIM Scans - Scanned [facility] - 09/20/2009 10:40 AM CDT HIM Scans - Scanned [facility] - 09/20/2009 10:40 AM CDT documented in [...] Results Surgical Pathology (09/19/2009 4:27 PM CDT) athologist Signature [facility] Comment: [facility] Surgical Pathology Laboratory [address] [place] [address] ?? [phone] Fax: ?? SURGICAL PATHOLOGY REPORT Patient Name: OMA ENCARNACION Specimen No: [id number] Room No: SDS-TRUCK DRIVING Age: ??34 Sex: F Taken: 09/19/2009 Med. R ec. #: [id number] : 1975 Received: 09/19/2009 Physician( s): Poppy Kaufman MD Service: TRUCK DRIVING 3N Reported: 09/20/2009 Clinical History Pelvic pain [...] Code Phon e Number [facility] [address] [place] [address] LABORATORY [facility] [address] [place] [address] HCG Urine (09/19/2009 6:42 AM CDT) P athologist Signature HCG URINE Negative [facility] Specimen Anatomical Collection Method Collection Time Receive d Time (Source) Location / / Volume Laterality Urine specimen 09/19/2009 6:42 AM 010 6:44 (specimen) CDT AM CDT Poppy Kaufman MD URINE ORDERABLE Performing Organization Address City/State/ZIP Code Phon e Number [facility] [address] [place] [address] [facility] documented in this encounter Visit Diagnoses Not [...] 0903 lactated ringers (LR) IV infusion (CANCELED) 0915 (New Bag - Provider: Veronica Boo RN) at 100 mL/hr, Intravenous, CONTINUOUS, S tarting Thu09/19/09 at 0915, Until Discontinued PRN Medication Order 09/17/2009 09/18/2009 09/19/2009 bupivacaine 0.25%-epinephrine 1:200,000 injection 50 mL (COMPLET ED) 0835 (Given - Provider: Tabby Richardson, TEREZA) 50 mL, Injection, INTRA-PROCEDURE ONE TI ME [...] (CANCELED) 905 (Given - Provider: Veronica Boo RN)09 (Given - Provider: Veronica Boo RN) 25-50 mcg, Intravenous, EVERY 5 MINUTES NEEDED, 8 doses, Starting Thu09/19/09 at 0903, Until Discontinued, for acute surgical pain, This medication has a Blackbox Warning. Click the [facility] Formulary reference link for more information. HYDROmorphone [...] on Thu09/19/09 at 0721, Until Thu09/19/09 at 21 METOCLOPRAMIDE 5 MG/ML INJECTION (COMPLETED) 734 (Given - Provider: Yury Rivera) 1 dose, Starting on Thu09/19/09 at 0721, Until Thu09/19/09 at 21 ONDANSETRON HCL (PF) 4 MG/2 ML INJECTION (COMPLETED) 0800 (Given - Provider: Yury Rivera) 1 dose, Starting on Thu09/19/09 at 0721, Until Thu09/19/09 at 21 documented in this encounter Care Teams User Interface Designer Relationship Specialty Start Date End Date Shannon Todd MD PCP - General 09/08/09 11/21/10 Rehab, [facility] And PCP - Primary Care Clinic 09/08/[address] [place] [address] documented as of this encounter
== END 2022-01-24 09:43 | disposition home or self-care (01) ==
LOC: NFLDREF 09:43
PROVIDERS: PCP Family Medicine; Visit Provider Family Medicine
DX: R30.0 Dysuria (principal); N39.0 Urinary tract infection, site not specified; R53.83 Other fatigue
CPT/HCPCS: 87086; 87186

== ENCOUNTER 2022-02-11 11:07 | Outpatient (CLI) | payer MEDICAID, SELFPAY ==
--- OUTSIDE RECORDS SUMMARY | 2022-02-11 11:12 | XMS_ITS | Encounter Summary ---
:1975 Author Organization [facility] Address [address] [place] [address] Care Team Providers Name Role Phone Jacques Alcantara MD Primary Care Provider Unavailable [facility] Family Phy Unavailable Unavailable Reason for Visit Reason Onset Date Comments Kidney problem states pain started 1 week ago, urine is bright yellow and dark at times Flu Vaccine 02/09/2017 Encounter Details Date Type Department Care Team Description 02/09/2017 Office Visit [facility] Kiel Jackson Need for influenza vaccination (Primary Dx); Clinic - [facility] SONYA Webber Asthma, unspecified asthma severity, uns pecified whether complicated, unspecified whether persistent; [address] [place] [address] Acute right-sided low back pain without sciatica [place], [place] [address] [place] [address] [phone] Social History Tobacco Use Types Packs/Day Years [...] more inWinter ??? Bipolar disorder (HCC/RxHCC) 1999 [facility] [place] ??? Chronic mental [...] 0.65% (SALINE NASAL MIST) 0.65 % Nasal [place] SprA Instill 1- 2 Sprays into EACH [...] asthma severity, unspecified whether complicated, unspecified whether persistent([facility]/RxHCC) Patient's asthma is well controlled at this [...] understanding. Denies any concerns. Kiel Jackson PA-C [facility] Kiel Jackson PA-C - 02/09/2017 1:00 PM CDT Results discussed with patient in the office. Kiel Jackson PA-C - 02/09/2017 1:00 PM CDT I tried to call with results. Voicemail full. Kiel Jackson PA-C [facility] documented in this encounter Plan of Treatment [...] encounter Results CULT-URINE (02/09/2017 1:29 PM CDT) [facility] Method Time Signature Urine Culture Mixed emerita 02/10/2017 [facility] L with 3 or 1:27 PM CDT HEALTH more LABORATORY organisms present. Each organism under 20,000 cfu/ml. Comment: Probable collection contaminate s or catheter colonization. Specimen Anatomical Collection Method Collection Time Receive d Time (Source) Location / / Volume Laterality Urine 02/09/2017 1:29 PM 7 1:29 CDT PM CDT Kiel Jackson PA-C MICROBIOLOGY ORDERABLE Performing Organization Address City/State/ZIP Code Phon e Number [address] [address] [phone] LABORATORY (ABNORMAL) URINALYSIS MICROSCOPY OP (LAB USE ONLY) (02/09/2017 1:29 PM CDT) [facility] Method Time Signature RBC UA OP Occasional None Seen, 02/09/2017 [place] Occasional 1:43 PM CDT [facility] WBC UA OP 10-14 (A) None Seen, 02/09/2017 [place] Occasional, 1:43 PM CDT [facility] [address] BACTERIA UA Absent Absent 02/09/2017 [place] OP 1:43 PM CDT [facility] Specimen Anatomical Collection Method Collection Time Receive d Time (Source) Location / / Volume Laterality Urine 02/09/2017 1:29 PM 7 1:29 CDT PM CDT Kiel Jackson PA-C URINE ORDERABLE Performing Organization Address City/State/ZIP Code Phon e Number [address] [address] [facility] (ABNORMAL) URINALYSIS W/ MICRO/CULTURE REFLEX OP (02/09/2017 1:29 PM CDT) [facility] gist Method Time Signature UA PH OP 5.5 5.0, 5.5, 02/09/2017 [place] 6.0, 6.5, 1:37 PM CDT [facility] 7.0, 7.5, [facility] 8.0 [facility] UA SPECIFIC 1.020 1.015, 02/09/2017 [place] GRAVITY OP 1.020, 1:37 PM CDT [facility] 1.025 [facility] UA PROTEIN OP Negative Negative 02/09/2017 [facility] mg/dL 1:37 PM CDT [facility] UA GLUCOSE OP Negative Negative 02/09/2017 [facility] mg/dL 1:37 PM CDT [facility] UA KETONES OP Negative Negative 02/09/2017 [facility] mg/dL 1:37 PM CDT [facility] UA BILIRUBIN OP Negative Negative 02/09/2017 [facility] 1:37 PM CDT [facility] UA BLOOD OP Negative Negative, 02/09/2017 [place] Trace 1:37 PM CDT [facility] UA UROBILINOGEN 0.2 0.2, 1.0 02/09/2017 [place] OP EU/dL 1:37 PM CDT [facility] UA LEUKOCYTE Moderate (A) Negative, 02/09/2017 [place] ESTERASE OP Trace 1:37 PM CDT [facility] UA NITRITE OP Negative Negative 02/09/2017 [place] 1:37 PM T [facility] Specimen Anatomical Collection Method Collection Time Receive d Time (Source) Location / / Volume Laterality Urine 02/09/2017 1:29 PM 7 1:29 CDT PM CDT Kiel Jackson PA-C MICROBIOLOGY ORDERABLE Performing Organization Address City/State/ZIP Code Phon e Number [facility] [address] [facility] [place] [address] [facility] documented in this encounter Visit Diagnoses Diagnosis Need for influenza vaccination - Primary Need for prophylactic vaccination and in oculation against influenza Asthma, unspecified asthma severity, uns pecified whether complicated, unspecified whether persistent Acute right-sided low back pain without sciatica documented in this encounter Care Teams Supervisor Farm Equipment Maintenance Relationship Specialty Start Date End Date Jacques Alcantara MD PCP - General Family Medicine 12/15/12 [facility], PCP - Primary Care Clinic 3 09/16/17 [facility] Phy documented as of this encounter
--- OUTSIDE RECORDS SUMMARY | 2022-02-11 11:12 | XMS_ITS | Encounter Summary ---
:1975 Author Organization [facility] Address [address] [place] [address] Care Team Providers Name Role Phone Jacques Alcantara MD Primary Care Provider Unavailable [facility] Family Phy Unavailable Unavailable Reason for Visit Reason Comments Flu symptoms vomiting, loose stools and c an not keep anyting down. she did have a flu shot Encounter Details Date Type Department Care Team Description 03/09/2017 Office Visit [facility] Mary Francois [facility]al [facility] - SONYA Benavides (Primary Dx) [address] [address] [phone] Social History Tobacco Use Types Packs/Day Years [...] Adult,Disposable (DEPEND UNDERWEAR L-XL) 1 Each [place] [facility]Non-[place]; Combo Route) route three times a day. [...] 0.65% (SALINE NASAL MIST) 0.65 % Nasal [place] SprA Instill 1-2 Sprays into EACH nare [...] more inWinter ??? Bipolar disorder (HCC) 1999 [facility] ??? Chronic mental illness 1990 ??? Depression [...] classified documented in this encounter Care Teams Public Finance Specialist Relationship Specialty Start Date End Date Jacques Alcantara MD PCP - General Family Medicine 12/15/12 [facility], PCP - Primary Care Clinic 3 09/16/17 [facility] documented as of this encounter
--- OUTSIDE RECORDS SUMMARY | 2022-02-11 11:12 | XMS_ITS | Encounter Summary ---
:1975 Author Organization [facility] Address [address] [place] [address] Care Team Providers Name Role Phone Unavailable Primary Care Provider Unavailable Reason for Referral (Routine) - Closed Specialty Diagnoses / Procedures Referred By Contact Refer red To Contact Diagnoses Screening for breast cancer Jacques Alcantara [place] [address] [place] [address] Referral ID Status Reason Start Date Expiration Date Visits Requ ested Visits Authorized [id number] Closed 01/27/2018 01/27/2019 1 1 Reason for Visit Reason Onset Date Comments Lab draw Rx refill Flu Vaccine 01/27/2018 Encounter Details Date Type Department Care Team Description 01/27/2018 Office Visit [facility] Jacques Alcantara olic syndrome (Primary Dx); Clinic - Jazmin Veliz MD Elevated fasting blood sugar ; [address] ipidemia, unspecified hyperlipidemia type; 100 Seasonal allergic rhinitis d ue to other allergic trigger; SIAM Wu Gastroesophag eal reflux disease, esophagitis presence not specified; [address] Screening for breast cancer; [phone] History of drug abuse; Need for influe [...] Adult,Disposable (DEPEND UNDERWEAR L-XL) 1 Each by [facility]Non- Drug; Combo Route) route three times a [...] Psych - Judgment and mental status are Central [place] herbal, patient has poor insight. Mood is [...] PROFILE CASCADE OP (01/27/2018 11:09 AM CDT) [facility] Method Time Signature CHOLESTEROL OP 222 (H) <=200 01/27/2018 [facility] mg/dL 11:41 AM CDT [facility] TRIGLYCERIDES 98 <150 01/27/2018 [facility] PROFILE OP mg/dL 11:41 AM CDT [facility] LDL CHOL, CALC OP 154 (H) <100 01/27/2018 [facility]/dL 11:41 AM CDT [facility] HDL CHOLESTEROL 48 >=40 01/27/2018 [facility] mg/dL 11:41 AM CDT [facility] CHOL/HDL RATIO OP 4.6 0.0 - 4.9 01/27/2018 [facility] 11:41 AM CDT [facility] SPECIMEN TYPE 01/27/2018 [facility] 11:41 AM CDT [facility] Specimen Anatomical Collection Method / Collection Time Recei philipp Time (Source) Location / Volume Laterality Blood Venipuncture / 01/27/2018 11:09 8 Unknown AM CDT 11:20 AM CDT Narrative [facility] - 01/27/2018 11:41 AM CDT LDL CHOLESTEROL REFERENCE RANGES: (FOR PATIENTS W/O HEART DISEASE) <100 mg/dL = Optimal 100-129 mg/dL = Near/Above Optimal 130-159 mg/dL = Borderline High 160-189 mg/dL = High >/= 190 mg/dL = Very High Jacques Alcantara MD CHEMISTRY ORDERABLE Performing Organization Address [facility] Phon e Number [address] [address], [facility]) HGB A1C (GLYCO HGB) OP (01/27/2018 11:09 AM CDT) athologist Signature HGBA1C OP 6.0 4.5 - 6.2 01/27/2018 [facility] % 11:33 AM CDT [facility] EST AVERAGE 126 (H) <=114 01/27/2018 [facility] GLUCOSE OP mg/dL 11:33 AM [facility] Specimen Anatomical Collection Method / Collection Time Recei philipp Time (Source) Location / Volume Laterality Blood Venipuncture / 01/27/2018 11:09 8 Unknown AM CDT 11:20 AM CDT Jacques Alcantara MD CHEMISTRY ORDERABLE Performing Organization Address [facility] Phon e Number [address] [address], [facility] documented in this encounter Visit [...]
--- OUTSIDE RECORDS SUMMARY | 2022-02-11 11:12 | XMS_ITS | Encounter Summary ---
:1975 Author Organization [facility] Address [address] [place] [address] Care Team Providers Name Role Phone Unavailable Primary Care Provider Unavailable Reason for Referral Consultation (Routine) - Closed Specialty Diagnoses / Procedures Referred By Contact Refer red To Contact Spine/Back Specialist Diagnoses Acute right-sided low back pain with right-sided sciatica Jacques Alcantara MD Md, Not Listed [address] [facility] [address] [place] [address] Referral ID Status Reason Start Date Expiration Date Visits V isits Requested Authorized [id number] Closed Specialty 07/29/2018 [address] Barboza [facility] [place] Reason for Visit Reason Comments Medication management Rx refill Back pain Back injury fell down steps (5) landed o n buttocks. x 1 month Encounter Details Date Type Department Care Team Description 07/29/2018 Office Visit [facility] Jacques Alcantara Acute right-sided low back pain with right-sided sciatica (Primary Dx); Clinic - Jazmin Veliz MD Seasonal allergic rhinitis d ue to other allergic trigger; [address] [facility] [address] Gastro esophageal reflux disease, esophagitis presence not specified; 100 Bipolar affective disorder i n remission ([facility]); [place] (restless legs syndrome); [address] Insomnia, unspecified type [phone] Social History Tobacco Use Types Packs/Day Years [...] her chronic back symptoms. Previously treated at [facility] and felt they were quite good. Requesting [...] UNDERWEAR L-XL) 1 [place] [facility]- [place]; Combo Route) route three times a [...]
--- OUTSIDE RECORDS SUMMARY | 2022-02-11 11:12 | XMS_ITS | Encounter Summary ---
:1975 Author Organization [facility] Address [address] [place] [address] Care Team Providers Name Role Phone Jacques Alcantara MD Primary Care Provider Unavailable [facility] Unavailable Unavailable Reason for Visit Reason Comments Care coordination Encounter Details Date Type Department Care Team Description 11/13/2016 [facility] [address] [place] [address] [place] [address] Social History Tobacco Use Types Packs/Day Years [...] on filedocumented in this encounter Care Teams Race Relations Adviser Relationship Specialty Start Date End Date Jacquse Alcantara MD PCP - General Family Medicine 12/15/12 [facility], PCP - Primary Care Clinic 3 09/16/17 [facility] documented as of this encounter
--- OUTSIDE RECORDS SUMMARY | 2022-02-11 11:12 | XMS_ITS | Encounter Summary ---
:1975 Author Organization [facility] Address [address] [place] [address] Care Team Providers Name Role Phone Unavailable [...]
--- OUTSIDE RECORDS SUMMARY | 2022-02-11 11:12 | XMS_ITS | Encounter Summary ---
:1975 Author Organization [facility] Address [address] [place] [address] Care Team Providers Name Role Phone [place], [facility] Unavailable Reason for Visit Reason Onset Date Comments Dizziness 01/15/2022 Encounter Details Date Type Department Care Team Description 01/15/[address] [facility] Jazmin Odell [address] [place] [address] Social History Tobacco [...] menstrual period? no Protocols used: Dizziness - [id number] documented in this encounter Plan of Treatment Not on filedocumented as of this encounter Visit Diagnoses Not on filedocumented in this encounter Care Teams Dental Receptionist Relationship Specialty Start Date End Date [facility] PCP - Primary Care Clinic [facility] [address] [place] [address] documented as of this encounter
--- OUTSIDE RECORDS SUMMARY | 2022-02-11 11:12 | XMS_ITS | Encounter Summary ---
:[address] [facility] Address [address] [place] [address] Care Team Providers Name Role Phone Unavailable Primary Care Provider Unavailable Reason for Visit Reason Comments Ear problem Pt mentions that she has bee n having left ear pain for about 3 days. Encounter Details Date Type Department Care Team Description 02/09/[address] [facility] Lucila Jacques Acute ot itis externa Visit [facility] - SONYA Guevara of left ear, [place] unspecified type [address] [place] [address] Rd C (Primary Dx ) [address] [address] Social History Tobacco Use Types Packs/Day Years [...] problem has resolved. Lucila Paez) SONYA Jacques [facility] - Urgent Care Otitis Externa WHAT YOU [...] after you swim or bathe. ?? Copyright [employer] 2017 Information is for End User's use only and may not be sold, redistributed or otherwise used for commercial purposes. All illustrations and images included in CareNotes?? are the copyrighted property of [employer] Authentication, [employer]. or [employer] The above information is an clinical laboratory aide only. It is not intended as [...] if not improved. Lucila Jacques PA-C (Betsy) [facility] Urgent Care documented in this encounter Plan of Treatment Not on filedocumented as of this encounter Visit Diagnoses Diagnosis Acute otitis externa of left ear, unspec ified type - Primary documented in this encounter
--- OUTSIDE RECORDS SUMMARY | 2022-02-11 11:12 | XMS_ITS | Encounter Summary ---
:1975 Author Organization [facility] Address [address] [place] [address] Care Team Providers Name Role Phone Unavailable Primary Care Provider Unavailable Encounter Details Date Type Department Care Team Description 09/17/2017 Ancillary Procedure [facility] [address] [facility] [address] [place], [place] [address] Social History Tobacco Use Types [...]
--- OUTSIDE RECORDS SUMMARY | 2022-02-11 11:12 | XMS_ITS | Clinical Summary ---
:1975 Author Organization [facility] Address [address] [place] [address] Care Team Providers Name Role Phone [facility] Unavailable Allergies Active Allergy Reactions Severity Noted [...] 11/08 PCV20) Medical Devices Implanted Type Area Skimmer Reverberatory Device Shelf Model / Identifier Expiration Date Ser ial / Lot Scrsynlck S/T Sdr 06/24 201.884 - [id number] Screw/Anc Right: Synthes 201.884 / Implanted: Qty: 1 on 02/16/2014 at [facility] hor Yelena t / Insurance Payer Benefit Plan / Subscriber ID Effective Dates Phone Addre ss Type Group MEDICAID MEDICAID [id number] 2009-Present [address] [address] [place] [address] Care Teams Machine Lay Out Worker Relationship Specialty Start Date End Date [facility] PCP - Primary Care Clinic [facility] [address] [place] [address]
--- OUTSIDE RECORDS SUMMARY | 2022-02-11 11:12 | XMS_ITS | Encounter Summary ---
:1975 Author Organization [facility] Address [address] [place] [address] Care Team Providers Name Role Phone Jacques Alcantara MD Primary Care Provider [facility] Unavailable Medical Reason for Referral Consultation (Routine) - Closed Specialty Diagnoses / Procedures Referred By Contact Refer red To Contact Psychiatry Diagnoses Bipolar affective disorder in remission (HCC) Depression with anxiety Episodic drug abuse (HCC) Insomnia, unspecified type Jacques Alcantara MD Md, Not Listed [address] [place] [address] Referral ID Status Reason Start Date Expiration Date Visits V isits Requested Authorized [id number] Closed Specialty 06/05/2020 06/05/2021 1 1 Services Required Comments [facility] [address] [facility] [place], [place] [address] ?? ~48.1 mi ICS TECHNICIAN Reason for Visit Reason Comments Rx refill refill metications Encounter Details Date Type Department Care Team Description 06/05/2020 Virtual Visit [facility] Jacques Alcantara Bipolar aff ective disorder in remission (HCC) (Primary Dx); [facility] - MD Keren Seasonal all ergic rhinitis due to other allergic trigger; [place] Acute right-sided low back p ain with right-sided sciatica; [address] Gastroesopha geal reflux disease; [address] Depression with anxiety; [place], [place] Episodic drug abuse (HCC); [address] Insomnia, unspecified type [phone] Social History Tobacco Use Types Packs/Day Years [...] with No / Unsure 06/04/2020 1:33 PM PHYSICS TECHNICIAN someone who was confirmed or suspected to [...] list, Medications, and Allergies were reviewed in [employer] EMR. O: LMP (LMP Unknown) General: Calm, [...] Referral provided today to local psychiatrist in [facility] Seasonal allergic rhinitis due to other [...] located at home. Provider is located at [facility]. Total time spent today for visit was 10 minutes and included: Direct [id number] time, Review of records and Coordination of care. Full vital signs not obtained due to telehealth. Any recorded vitals are self- reported by patient. Jacques Alcantara MD ICS TECHNICIAN documented in this encounter Plan of Treatment Scheduled Referrals Name Type Priority Associated Diagnoses Order S [facility] REFERRAL PSYCHIATRY Referral Routine Bipolar affective [...] type documented in this encounter Care Teams Return To Service Inspector Relationship Specialty Start Date End Date Jacques Alcantara MD PCP - General Family Medicine 06/05/20 [facility] PCP - Primary Care Clinic [facility] [address] [place] [address] documented as of this encounter
--- OUTSIDE RECORDS SUMMARY | 2022-02-11 11:12 | XMS_ITS | Encounter Summary ---
:1975 Author Organization [facility] Address [address] [place] [address] Care Team Providers Name Role Phone Unavailable Primary Care Provider Unavailable Reason for Visit Reason Comments Follow up Encounter Details Date Type Department Care Team Description 12/02/2017 Office Visit [facility] Jacques Alcantara Polys ubstance dependence (HCC) (Primary Dx); Clinic - Jazmin Veliz MD Bipolar affective disorder i n remission (HCC) [address] [address] [address] [place] [address] Social History Tobacco Use Types [...] Adult,Disposable (DEPEND UNDERWEAR L-XL) 1 Each by [facility].(Non- Drug; Combo Route) route three times a [...]
--- OUTSIDE RECORDS SUMMARY | 2022-02-11 11:12 | XMS_ITS | Encounter Summary ---
:1975 Author Organization [facility] Address [address] [place] [address] Care Team Providers Name Role Phone Jacques Alcantara MD Primary Care Provider Unavailable [facility] Unavailable Unavailable Reason for Visit Reason Comments Finger injury states on the top of the pascual mb she is having a hard time feeling the top of her thumb Encounter Details Date Type Department Care Team Description 02/24/2017 Office Visit [facility] Jacques Alcantara, In jury of right thumb, initial encounter (Primary Dx); Clinic - [facility] RLS (restless legs syndrome) ; [address] [place] [address] Need for pneumococcal vaccine; S.E. Screening for breast cancer; [place], [place] [address] Weight gain, abnormal [phone] Social History Tobacco Use Types Packs/Day Years [...] Adult,Disposable (DEPEND UNDERWEAR L-XL) 1 Each by [facility]Non- Drug; Combo Route) route three times a [...] 0.65% (SALINE NASAL MIST) 0.65 % Nasal [place] SprA Instill 1- 2 Sprays into EACH [...] patient and/or guardian. Maria Del Rosario A [place] and/or guardian engaged in the decision making [...] gain documented in this encounter Care Teams Heat Treater Apprentice Relationship Specialty Start Date End Date Jacques Alcantara MD PCP - General Family Medicine 12/15/12 [facility], PCP - Primary Care Clinic 3 09/16/17 [facility] documented as of this encounter
--- OUTSIDE RECORDS SUMMARY | 2022-02-11 11:12 | XMS_ITS | Encounter Summary ---
:1975 Author Organization [facility] Address [address] [place] [address] Care Team Providers Name Role Phone Unavailable Primary Care Provider Unavailable Reason for Visit Reason Comments Ear Pain Encounter Details Date Type Department Care Team Description 10/27/2017 Emergency [facility] Christin Jimenez MD [facility] - [address] [facility] [address] [place] [address] [address] [address] [place] [address] [phone] Social History Tobacco Use Types Packs/Day Years [...] be sent through Care Everywhere. HEARING LOSS ([place]OURG[place])documented in this encounter Medications at Time of [...] OXYMETAZOLINE,) into EACH nare 0.05 % Nasal [place] nasal twice a day for 3 spray days. sodium chloride 0.65% Instill 1-2 Sprays 1 Bottle 11 201412/02/2017 (SALINE NASAL MIST) 0.65 into EACH nare % Nasal [place] every 1 (one) hour SprAIndications: Sinus as [...] mild intermittant/ more inWinter ??? Bipolar disorder ([facility]) 1999 [facility] ??? Chronic mental illness 1990 ??? Depression with anxiety ??? Heartburn ??? Insomnia trazadone tx works well ??? Lumbar vertebral fracture ([facility]) 1987 L4 or L5 ??? [...] oxymetazoline 0.05% (AFRIN, OXYMETAZOLINE,) 0.05 % Nasal [place] nasal spray rOPINIRole (REQUIP) 3 mg oral Tab sodium chloride 0.65% (SALINE NASAL MIST) 0.65 % Nasal [place] SprA topiramate (TOPAMAX) 100 mg oral tablet [...]
--- OUTSIDE RECORDS SUMMARY | 2022-02-11 11:12 | XMS_ITS | Encounter Summary ---
:1975 Author Organization [facility] Address [address] [place] [address] Care Team Providers Name Role Phone Unavailable Primary Care Provider Unavailable Reason for Referral (Routine) - Auth-No PA/Ref Req Specialty Diagnoses / Procedures Referred By Contact Refer red To Contact Diagnoses Sacroiliac pain Robert Taveras MD Procedures IPC FLUORO GUIDED PROCEDURE [address] [place] [address] Referral ID Status Reason Start Date Expiration Date Visits V isits Requested Authorized [id number] Auth-No 09/22/2017 1 1 PA/Ref Req Reason for Visit Consultation (Routine) - Auth-No PA/Ref Req Specialty Diagnoses / Procedures Referred By Contact Refer red To Contact Pain Management Diagnoses Chronic bilateral low back pain without sciatica Martha Balderrama, Specialist, Comprehensive PA-C Pain Management Clinic - [address] [place] [address] [facility] [address] [place], [place] [address] [address] [facility] Makayla Clay [address] Phone: Referral ID Status Reason Start Expiration Visits Visits Date Date Requested Authorized [id number] Auth-No Specialty 09/17/2017 1 1 PA/Ref Req Services Required Encounter Details Date Type Department Care Team Description 10/28/2017 Hospital Encounter [facility] Vivian Taveras, Comprehensive [facility] [address] [facility] [address] [place] [address] [place] [phone] Social History Tobacco Use Types Packs/Day Years [...] encounter Discharge Instructions Patient InstructionsGato Dutta APRN, INVASIVE CARDIOLOGIST - 10/28/2017 10:14 AM CDT HOME CARE [...] have questions, please contact our office at [phone] between the hours of 8:00 am and 4:00 pm, Thursday through Thursday. After hours, if you need immediate attention, we recommend you go to the hospital emergency room. Please schedule a follow-up appointment for approximately four weeks with the [facility] after the procedure or [...] OXYMETAZOLINE,) into EACH nare 0.05 % Nasal [place] nasal twice a day for 3 spray days. 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 The [...] progress. Robert Taveras MD Diplomate of the [place] Board of Anesthesiology, Pain Medicine documented in [...] Chart Review under the Procedure tab. Robert aTveras MD IR ORDERABLE documented in this encounter [...]
--- OUTSIDE RECORDS SUMMARY | 2022-02-11 11:12 | XMS_ITS | Encounter Summary ---
:[address] [facility] Address [address] [place] [address] Care Team Providers Name Role Phone Unavailable Primary Care Provider Unavailable Reason for Visit (Routine) - Closed Specialty Diagnoses / Procedures Referred By Contact Refer red To Contact Diagnoses Screening for breast cancer Jacques Alcantara MD [place] [address] [address] [place] [address] Referral ID Status Reason Start Date Expiration Date Visits Requ ested Visits Authorized [id number] Closed 01/27/2018 01/27/2019 1 1 Encounter Details Date Type Department Care Team Description 01/27/[address] [facility] Screening for breast Imaging - [place] cancer Mammo [address] [place] [phone] Social History Tobacco Use Types Packs/Day Years [...]
--- OUTSIDE RECORDS SUMMARY | 2022-02-11 11:12 | XMS_ITS | Encounter Summary ---
:1975 Author Organization [facility] Address [address] [place] [address] [place] [address] Care Team Providers Name Role Phone Unavailable Primary Care Provider Unavailable Reason for Visit Reason Comments Back pain Low right Encounter Details Date Type Department Care Team Description 09/21/2017 Hospital Encounter [facility] Liz Lynch , Comprehensive Pain ANESTHESIA TECH, FURNACE COMBUSTION TESTER Management Center [address] [facility] [address] [place] [address] SIMA Sáurez [address] [place] [phone] [address] Social History Tobacco Use Types Packs/Day Years [...] Dandy Epstein - Substance Use Recovery at [facility]. -Referral to acupuncture. -Return to clinic [...] 0.65 into EACH nare every % Nasal [place] 1 (one) hour as SprAIndications: Sinus needed. [...] APRN, RICARDO - 09/21/2017 9:11 AM CDT [facility] RETURN VISIT Patient: Maria Del Rosario Servin : 1975 Address: [address] [place] [address] PCP: Martha Balderrama PA-C CHIEF COMPLAINT Back [...] been lost to follow up from the [facility] since 03/2016. She reports she was seeing Johnathan Meeks PA-C at [facility] for pain medications,but they would no [...] (DEPEND UNDERWEAR L-XL) , 1 Each by [facility].(Non-Drug; Combo Route) route three times a day., [...] 0.65% (SALINE NASAL MIST) 0.65 % Nasal [place] SprA, Instill 1-2 Sprays into EACH nare [...] is not currently prescribed any opioids per PLUNGER SHOVEL OPERATOR. Last prescription for Percocet 10/325 #34 tabs on 07/16/17. 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 [...] Dandy Epstein - Substance Use Recovery at [facility]. -Referral to acupuncture. -Return to clinic in one month. Thank you for allowing us to participate in the care of this patient. Liz Lynch APRN, FURNACE COMBUSTION TESTER documented in this encounter Miscellaneous Notes Addendum [...]
--- OUTSIDE RECORDS SUMMARY | 2022-02-11 11:12 | XMS_ITS | Encounter Summary ---
:1975 Author Organization [facility] Address [address] [place] [address] Care Team Providers Name Role Phone Unavailable [...] with No / Unsure 06/04/2020 1:33 PM LITHARGE SUPERVISOR someone who was confirmed or suspected to have Coronavirus / COVID-19? documented as of this encounter Plan of Treatment Not on filedocumented as of this encounter Visit Diagnoses Not on filedocumented in this encounter
--- OUTSIDE RECORDS SUMMARY | 2022-02-11 11:12 | XMS_ITS | Encounter Summary ---
:1975 Author Organization [facility] Address [address] [place] [address] Care Team Providers Name Role Phone Jacques Alcantara MD Primary Care Provider Unavailable [facility] Unavailable Unavailable Reason for Visit Reason Comments Vomiting intermittently x 2 months. Nausea Encounter Details Date Type Department Care Team Description 04/07/2017 Office Visit [facility] Jacques Alcnatara Va story of tobacco Clinic - [facility] abuse (Primary Dx) [address] [place] [address] Social History Tobacco Use Types Packs/Day Years [...] Comments Blood Pressure 122/76 04/07/2017 10:46 AM DOCUMENT CONTROLLER Pulse 82 04/07/2017 10:46 AM DOCUMENT CONTROLLER Temperature 37.1 ??C (98.7 ??F) 04/07/2017 10:46 AM DOCUMENT CONTROLLER Respiratory Rate 16 04/07/2017 10:46 AM DOCUMENT CONTROLLER Oxygen Saturation - - Inhaled Oxygen Concentration - - Weight 94.5 kg (208 lb 6.4 oz) 04/07/2017 10:46 AM DOCUMENT CONTROLLER Height 157.5 cm (5' 2) 04/07/2017 10:46 AM DOCUMENT CONTROLLER Body Mass Index 38.12 04/07/2017 10:46 AM DOCUMENT CONTROLLER documented in this encounter Progress Notes Jacques [...] UNDERWEAR L-XL) 1 Each [place] [facility]Non- Drug; Combo Route) route three times [...] 0.65% (SALINE NASAL MIST) 0.65 % Nasal [place] SprA Instill 1- 2 Sprays into EACH [...] patient and/or guardian. Maria Del Rosario Veliz [place] and/or guardian engaged in the decision making process and verbalized understanding of the optionsdiscussed and agreed with the final plan. MENT CONTROLLER documented in this encounter Plan of Treatment Not on filedocumented as of this encounter Visit Diagnoses Diagnosis History of tobacco abuse - Primary Personal history of tobacco use, present ing hazards to health documented in this encounter Care Teams Jig Worker Relationship Specialty Start Date End Date Jacques Alcantara MD PCP - General Family Medicine 12/15/12 [facility], PCP - Primary Care Clinic 3 09/16/17 [facility] documented as of this encounter
--- OUTSIDE RECORDS SUMMARY | 2022-02-11 11:12 | XMS_ITS | Encounter Summary ---
:1975 Author Organization [facility] Address [address] [place] [address] Care Team Providers Name Role Phone Jacques Alcantara MD Primary Care Provider Unavailable [facility] Unavailable Unavailable Reason for Visit Reason Comments Upper Extremity Issue Encounter Details Date Type Department Care Team Description 02/12/2017 Emergency [facility] Luly Cottrell MD Hospital Emergency [address] [facility] Department [address] [place] [address] [place], [place] [address] [phone] Social History Tobacco Use Types Packs/Day Years [...] cannot be sent through Care Everywhere. CONTUSION (CYMRAES)documented in this encounter Medications at Time of [...] MIST) 0.65 into EACH nare % Nasal [place] every 1 (one) hour SprAIndications: Sinus as [...] 0.65% (SALINE NASAL MIST) 0.65 % Nasal [place] SprA topiramate (TOPAMAX) 100 mg oral tablet [...] Primary documented in this encounter Care Teams Roast Master Relationship Specialty Start Date End Date Jacques Alcantara MD PCP - General Family Medicine 12/15/12 [facility], PCP - Primary Care Clinic 3 09/16/17 [facility] documented as of this encounter
--- OUTSIDE RECORDS SUMMARY | 2022-02-11 11:12 | XMS_ITS | Encounter Summary ---
:1975 Author Organization [facility] Address [address] [place] [address] Care Team Providers Name Role Phone Jacques Alcantara MD Primary Care Provider Unavailable [facility] [place] Family Phy Unavailable Unavailable Reason for Visit Reason Comments Anxiety Rx refill chantix, diazepam and requip Encounter Details Date Type Department Care Team Description 11/13/2016 Office Visit [facility] Jacques Alcantara, De pression with anxiety Clinic - [place] [facility] (Primary Dx) [address] [place] [address] Social History Tobacco Use Types Packs/Day Years [...] (DEPEND UNDERWEAR L-XL) 1 Each by [facility].(Non- Drug; Combo Route) route three times a [...] 0.65% (SALINE NASAL MIST) 0.65 % Nasal [address] SprA Instill 1- 2 Sprays into EACH [...] patient and/or guardian. Maria Del Rosario Veliz [place] and/or guardian engaged in the decision making process and verbalized understanding of the optionsdiscussed and agreed with the final plan. documented in this encounter Plan of Treatment Not on filedocumented as of this encounter Visit Diagnoses Diagnosis Depression with anxiety - Primary Dysthymic disorder documented in this encounter Care Teams Sheriff'S Detective Relationship Specialty Start Date End Date Jacques Alcantara MD PCP - General Family Medicine 12/15/12 [facility], PCP - Primary Care Clinic 3 09/16/17 [facility] documented as of this encounter
--- OUTSIDE RECORDS SUMMARY | 2022-02-11 11:12 | XMS_ITS | Encounter Summary ---
:1975 Author Organization [facility] Address [address] [place] [address] Care Team Providers Name Role Phone Jacques Alcantara MD Primary Care Provider Unavailable [facility] Unavailable Encounter Details Date Type Department Care Team Description 02/12/2017 Hospital Encounter Xray [address] [place] [address] Social History Tobacco Use Types Packs/Day [...] MIST) 0.65 into EACH nare % Nasal [place] every 1 (one) hour SprAIndications: Sinus as [...] on filedocumented in this encounter Care Teams Store Receiver Relationship Specialty Start Date End Date Jacques Alcantara MD PCP - General Family Medicine 12/15/12 [facility], PCP - Primary Care Clinic 3 09[facility]16/17 [facility] documented as of this encounter
--- OUTSIDE RECORDS SUMMARY | 2022-02-11 11:12 | XMS_ITS | Encounter Summary ---
:1975 Author Organization [facility] Address [address] [place] [address] Care Team Providers Name Role Phone Jacques Alcantara MD Primary Care Provider Unavailable [facility] Family Phy Unavailable Unavailable Reason for Visit Reason Comments UTI symptoms Rx refill adderall and lorazepam Encounter Details Date Type Department Care Team Description 01/08/2017 Office Visit [facility] Jacques Alcantara Ac emmonak cystitis without hematuria (Primary Dx); Clinic - [facility] Dysuria; [address] [place] [address] Bipolar a ffective disorder in remission (HCC); S.E. Tobacco abuse [place], [place] [address] Social History Tobacco Use Types [...] encounter Results CULT-URINE (01/08/2017 11:28 AM CDT) [facility] [employer] Method Time Signature Urine Culture Mixed emerita 01/10/2017 [facility] with 3 or 10:12 AM CDT HEALTH more LABORATORY organisms present. None predominant. Comment: Probable collection contaminate s or catheter colonization. Specimen Anatomical Collection Method Collection Time Receive d Time (Source) Location / / Volume Laterality Urine 01/08/2017 11:28 01/08/2017 AM CDT 11:28 AM CDT Jacques Alcantara MD MICROBIOLOGY ORDERABLE Performing Organization Address City/[facility] Phon e Number [facility] [address] [place] [address] [phone] LABORATORY (ABNORMAL) URINALYSIS MICROSCOPY OP (LAB USE ONLY) (01/08/2017 11:28 AM CDT) [facility] Method Time Signature RBC UA OP None Seen None Seen, 01/08/2017 [place] Occasional 11:36 AM [facility] /[facility] WBC UA OP 30-49 (A) None Seen, 01/08/2017 [place] Occasional, 11:36 AM [facility] 1-4 /[facility] BACTERIA UA Present (A) Absent 01/08/2017 [place] OP 11:36 AM [facility] Specimen Anatomical Collection Method Collection Time Receive d Time (Source) Location / / Volume Laterality Urine 01/08/2017 11:28 01/08/2017 AM CDT 11:28 AM CDT Jacques Alcantara MD URINE ORDERABLE Performing Organization Address City/State/ZIP Code Phon e Number [facility] [address] [facility] [place] [address] - [facility] (ABNORMAL) URINALYSIS W/ MICRO/CULTURE REFLEX OP (01/08/2017 11:28 AM CDT) [facility] Method Time Signature UA PH OP 5.5 5.0, 5.5, 01/08/2017 [place] 6.0, 6.5, 11:30 AM [facility] 7.0, 7.5, [facility] 8.0 [facility] UA SPECIFIC >=1.030 (A) 1.015, 01/08/2017 [place] GRAVITY OP 1.020, 11:30 AM [facility] 1.025 [facility] UA PROTEIN OP Trace (A) Negative 01/08/2017 [place] mg/dL 11:30 AM [facility] UA GLUCOSE OP Negative Negative 01/08/2017 [place] mg/dL 11:30 AM [facility] UA KETONES OP Negative Negative 01/08/2017 [place] mg/dL 11:30 AM [facility] UA BILIRUBIN OP Negative Negative 01/08/2017 [place] 11:30 AM [facility] UA BLOOD OP Negative Negative, 01/08/2017 [place] Trace 11:30 AM [facility] UA UROBILINOGEN 0.2 0.2, 1.0 01/08/2017 [place] OP EU/dL 11:30 AM [facility] UA LEUKOCYTE Small (A) Negative, 01/08/2017 [place] ESTERASE OP Trace 11:30 AM [facility] UA NITRITE OP Negative Negative 01/08/2017 [place] 11:30 AM [facility] Specimen Anatomical Collection Method Collection Time Receive d Time (Source) Location / / Volume Laterality Urine 01/08/2017 11:28 01/08/2017 AM CDT 11:28 AM CDT Authorizing Provider Result Sharon Alcantara MD MICROBIOLOGY ORDERABLE Performing Organization Address City/State/ZIP Code Phon e Number [facility] [address] [facility] [address] - [facility] documented in this encounter Visit Diagnoses Diagnosis Acute cystitis without hematuria - Prima ry Acute cystitis Dysuria Bipolar affective disorder in remission (HCC) Tobacco abuse Tobacco use disorder documented in this encounter Care Teams Medical Clerical Assistant Relationship Specialty Start Date End Date Jacques Alcantara MD PCP - General Family Medicine 12/15/12 [facility], PCP - Primary Care Clinic 3 [facility] documented as of this encounter
--- OUTSIDE RECORDS SUMMARY | 2022-02-11 11:12 | XMS_ITS | Encounter Summary ---
:1975 Author Organization [facility] Address [address] [place] [address] Care Team Providers Name Role Phone Unavailable Primary Care Provider Unavailable Reason for Referral Consultation (Routine) - Auth-No PA/Ref Req Specialty Diagnoses / Procedures Referred By Contact Refer red To Contact Pain Management Diagnoses Chronic bilateral low back pain without sciatica Martha Balderrama, Specialist, Comprehensive [facility] - [address] Frank Robbinrial e-Spine [address] [place] [phone] 2 [address] [facility] [place] [address] Phone: Referral ID Status Reason Start Expiration Visits Visits Date Date Requested Authorized [id number] Auth-No Specialty 09/17/2017 1 1 PA/Ref Req Services Required Reason for Visit Reason Comments Rx refill Encounter Details Date Type Department Care Team Description 09/17/2017 Office Visit [facility] Martha Balderrama onic bilateral low back pain without sciatica (Primary Dx); Clinic - [place] Obesity, unspecified classification, uns pecified obesity type, unspecified whether serious comorbidity present; [place] [address] Cough; [address] Frank Frank 277 Bronchitis [address] [place], [place] [phone] (Wo rk) Social [...] Balderrama PA-C - 09/17/2017 1:00 PM CDT [facility] Maria Del Rosario Servin 1975 CC: Rx refill SUBJECTIVE: Maria Del Rosario Servin is a 42 y.o. female presents for refill on oxycodone. She states she used to be a patient with Dr. Alcantara. Reviewed BEHAVIORAL INTERVENTION SPECIALIST with her and she has been getting [...] (SALINE NASAL MIST) 0.65 % Nasal [place] SprA Instill 1- 2 Sprays into EACH [...] more inWinter ??? Bipolar disorder (HCC) 1999 [facility] ??? Chronic mental illness 1990 ??? Depression [...] coordination of care. FARZANA Bains, MPH, PARaoulC [facility] [phone] documented in this encounter Plan of Treatment [...] HGBA1C OP 5.8 (H) <=5.6 % 09/17/2017 [facility] 1:25 PM CDT CLINIC - [place] EST AVERAGE 120 (H) <=114 09/17/2017 [facility] GLUCOSE OP mg/dL 1:25 PM CDT CLINIC - [facility] Specimen Anatomical Collection Method Collection Time Receive d Time (Source) Location / / Volume Laterality Blood Capillary / 09/17/2017 1:14 PM 8 1:14 Unknown CDT PM CDT Martha Balderrama PA-C CHEMISTRY ORDERABLE Performing Organization Address City/State/[facility] Code Phon e Number [address] [address] [facility] [address] [address] [place] [address] documented in this encounter Visit Diagnoses Diagnosis Chronic bilateral low back pain without sciatica - Primary Obesity, unspecified classification, uns pecified obesity type, unspecified whether serious comorbidity present Cough Bronchitis Bronchitis, not specified as acute or ch ronic Cough documented in this encounter
--- OUTSIDE RECORDS SUMMARY | 2022-02-11 11:12 | XMS_ITS | Encounter Summary ---
:[address] [facility] Address [address] [place] [address] Care Team Providers Name Role Phone Jacques Alcantara MD Primary Care Provider Unavailable [facility] Unavailable Unavailable Reason for Visit Reason Comments Care coordination PHQ9 Encounter Details Date Type Department Care Team Description 06/22/[address] [facility] [address] [place] [address] [place] [address] Social History Tobacco Use Types Packs/Day Years [...] to fill out and return. Heidi Bliss [employer] Supervisor LATORY MANAGER documented in this encounter Plan of Treatment Not on filedocumented as of this encounter Visit Diagnoses Not on filedocumented in this encounter Care Teams Banker Mason Relationship Specialty Start Date End Date Jacques Alcantaar MD PCP - General Family Medicine 12/15/12 [facility], PCP - Primary Care Clinic 3 09/16/17 [facility] Phy documented as of this encounter
--- OUTSIDE RECORDS SUMMARY | 2022-02-11 11:13 | XMS_ITS | Encounter Summary ---
:1975 Author Organization [facility] Address [address] [place] [address] Care Team Providers Name Role Phone Jacques Alcantara MD Primary Care Provider Unavailable [facility] Unavailable Unavailable Reason for Visit Reason Comments Back pain Right low Knee pain Back of both knees Foot pain Left Encounter Details Date Type Department Care Team Description 04/02/2016 Hospital Encounter [facility] Milena Mason Pain RGio, DNP,REGISTRATION REP Management Center [address] [place] [address] [phone] (Wo rk) Social History Tobacco Use Types [...] Comments Blood Pressure 109/59 04/02/2016 10:10 AM BLEACH PLANT OPERATOR Pulse 84 04/02/2016 10:10 AM BLEACH PLANT OPERATOR Temperature - - Respiratory Rate - - Oxygen Saturation 95% 04/02/2016 10:10 AM BLEACH PLANT OPERATOR Inhaled Oxygen Concentration - - Weight 99.8 kg (220 lb) 04/02/2016 10:10 AM BLEACH PLANT OPERATOR Height 154.9 cm (5' 1) 04/02/2016 10:10 AM BLEACH PLANT OPERATOR Body Mass Index 41.57 04/02/2016 10:10 AM BLEACH PLANT OPERATOR documented in this encounter Discharge Instructions Patient InstructionsPatti Mason DNP,REGISTRATION REP - 04/02/2016 10:24 AM BLEACH PLANT OPERATOR 1. Decrease Gabapentin from 300mg, three caps TID to three caps BID. May decrease one capsule each day until at six caps/day. 2. Continue seeing behavioral health specialist 3. Continue HEP 4. Continue Robaxin as previously prescribed. 5. RTC 3-4 months CH PLANT OPERATOR documented in this encounter Medications at [...] MIST) 0.65 into EACH nare % Nasal [place] every 1 (one) hour SprAIndications: Sinus as needed. headache, Dizziness traZODone (DESYREL) 100 Take 300 mg by 0 08/27/2016 mg Oral Tab mouth at bedtime. triamterene-hydrochloroth 6 05/16/2015 08/27/2016 iazide 37.5 MG-25 MG (DYAZIDE) 37.5-25 mg oral Cap documented as of this encounter Progress Notes Patti Mason, ZOFIA,REGISTRATION REP - 04/02/2016 10:04 AM CST [facility] RETURN EVALUATION Patient Name: Maria Del Rosario Servin Address: [address] [place] [address] CHIEF COMPLAINT Low back and hip pain [...] 0.65% (SALINE NASAL MIST) 0.65 % Nasal [place] SprA topiramate (TOPAMAX) 25 mg Oral Tab [...] in the care your patient. Patti Mason DNP,REGISTRATION REP, PROGRAM SUPERVISOR CH PLANT OPERATOR documented in this encounter Plan of Treatment Not on filedocumented as of this encounter Visit Diagnoses Diagnosis Spondylolisthesis of lumbar region - Ana mcgregor Acquired spondylolisthesis documented in this encounter Care Teams Black Top Spreader Machine Operator Relationship Specialty Start Date End Date Jacques Alcantara MD PCP - General Family Medicine 12/15/12 [facility], PCP - Primary Care Clinic 3 09/16/17 [facility] documented as of this encounter
--- OUTSIDE RECORDS SUMMARY | 2022-02-11 11:13 | XMS_ITS | Encounter Summary ---
:1975 Author Organization [facility] Address [address] [place] [address] Care Team Providers Name Role Phone Jacques Alcantara MD Primary Care Provider Unavailable [facility] Family Phy Unavailable Unavailable Reason for Visit Reason Comments Cyst in groin area x 1 week. has popped it. Encounter Details Date Type Department Care Team Description 10/10/2015 Office Visit [facility] Jacques Alcantara, Ab scess or cellulitis (Primary Dx); Clinic - [facility] Cutaneous abscess of groin; [address] [place] [address] Spinal fu montse failure, sequela [place], [place] [address] Social History Tobacco Use Types [...] TID. 270 Cap 3 ? ? Glucosamine &Ghtzbkobd-RB-[id number] [id number] mg Oral Tab Take 1 Tab by [...] 0.65% (SALINE NASAL MIST) 0.65 % Nasal [place] SprA Instill 1- 2 Sprays into EACH [...] in bowel habits. No urinary tract symptoms. VENEER GLUE JOINTER FEEDBACK ROS: normal menses, no abnormal bleeding, pelvic [...] patient and/or guardian. Maria Del Rosario Veliz Foster and/or guardian engaged in the decision making [...] sequela documented in this encounter Care Teams Supervisor Drying And Softening Relationship Specialty Start Date End Date Jacques Alcantara MD PCP - General Family Medicine 12/15/12 [facility], PCP - Primary Care Clinic 3 [facility]16[facility]17 [facility] documented as of this encounter
--- OUTSIDE RECORDS SUMMARY | 2022-02-11 11:13 | XMS_ITS | Encounter Summary ---
:1975 Author Organization [facility] Address [address] [place] [address] Care Team Providers Name Role Phone Jacques Alcantara MD Primary Care Provider Unavailable [facility] Unavailable Unavailable Reason for Referral Consultation - Internal (Routine) - Auth-No PA/Ref Req Specialty Diagnoses / Procedures Referred By Contact Refer red To Contact Diagnoses IGTN (ingrowing toe nail) Jacques Alcantara MD [facility] [address] [place] [address] [place] [address] Phone: Referral ID Status Reason Start Expiration Visits Visits Date Date Requested Authorized [id number] Auth-No Specialty 04/16/2016 1 1 PA/Ref Req Services Required Comments Bilateral ingrown toenails of 1st and 2n d toes. ENT PUBLISHER (Routine) - Closed Specialty Diagnoses / Procedures Referred By Contact Refer red To Contact Diagnoses Irregular periods/menstrual cycles Jacques Alcantara MD Procedures [facility] [address] [place] [address] Referral ID Status Reason Start Date Expiration Date Visits Requ ested Visits Authorized [id number] Closed 04/16/2016 10/13/2016 1 1 ENT PUBLISHER Reason for Visit Reason Comments Toenail states [...] Department Care Team Description 04/16/2016 Office Visit [facility] Jacques Alcantara Mi maxe without status migrainosus, not intractable, unspecified migraine type (Primary Dx); Clinic - [place] [facility] Irregular periods/menstrual cycles; [address] [facility] IGTN (ing rowing toe nail); [place] Vitamin D deficiency; [place], [place] [address] Bipolar affective disorder i n remission ([facility]) [phone] Social History Tobacco Use Types Packs/Day Years [...] Comments Blood Pressure 128/72 04/16/2016 2:02 PM CONTENT PUBLISHER Pulse 80 04/16/2016 2:02 PM CONTENT PUBLISHER Temperature 36.8 ??C (98.3 ??F) 04/16/2016 2:02 PM CONTENT PUBLISHER Respiratory Rate 16 04/16/2016 2:02 PM CONTENT PUBLISHER Oxygen Saturation - - Inhaled Oxygen Concentration - - Weight 100.9 kg (222 lb 6.4 oz) 04/16/2016 2:02 PM CONTENT PUBLISHER Height 154.9 cm (5' 1) 04/16/2016 2:02 PM CONTENT PUBLISHER Body Mass Index 42.02 04/16/2016 2:02 PM CONTENT PUBLISHER documented in this encounter Progress Notes Jacques Alcantara MD - 04/17/2016 1:33 PM CST Called patient and reviewed lab not postmenopausal. ENT PUBLISHER Jacques Alcantara MD - 04/16/2016 2:00 PM [...] 0.65% (SALINE NASAL MIST) 0.65 % Nasal [place] SprA Instill 1- 2 Sprays into EACH [...] optionsdiscussed and agreed with the final plan. ENT PUBLISHER documented in this encounter Plan of Treatment Scheduled Referrals Name Type Priority Associated Diagnoses Order S chedule REFERRAL PODIATRY Follow Up Routine IGTN (ingrowing toe surjit l) Ordered: 04/16/2016 documented as of this encounter Procedures Procedure Name Priority Date/Time Associated Diagnosis Comme nts [facility] Routine 04/16/2016 2:22 PM Irregular Results f or this CONTENT PUBLISHER periods/menstrual procedure are in the cycles results section . documented in this encounter Results [facility], [facility] (04/16/2016 2:22 PM CONTENT PUBLISHER) athologist Signature [facility], [facility] 10.9 mIU/mL 04/17/2016 [facility] 1:23 PM CONTENT PUBLISHER LABORATORY Specimen Anatomical Collection Method / Collection Time Recei philipp Time (Source) Location / Volume Laterality Blood Venipuncture / 04/16/2016 2:22 04/16/2016 2:22 Unknown PM CONTENT PUBLISHER PM CONTENT PUBLISHER Narrative [facility]OR[facility]ORY - 04/17/2016 1 :23 PM CONTENT PUBLISHER [facility] REFERENCE RANGE: Males: ? 1.4 - 18.1 ??mIU/mL Females: ? Follicular: ? 2.5 - 10. 2 ??mIU/mL ? Midcycle: ? 3.4 - 33 .4 ??mIU/mL ? Luteal: ? 1.5 - ? ?9.1 ??mIU/mL ? Post-menopausal: 23.0 - 116.3 mIU/mL ? : ? <0.3 ??mIU/mL Jacques Alcantara MD CHEMISTRY ORDERABLE Performing Organization Address City/State/ZIP Code Phon e Number [facility] [address] [place] [address] [facility] [address] [place], [place] [address] documented in this encounter Visit Diagnoses Diagnosis Migraine without status migrainosus, not intractable, unspecified migraine type - Primary Irregular periods/menstrual cycles Irregular menstrual cycle IGTN (ingrowing toe nail) Ingrowing nail Vitamin D deficiency Unspecified vitamin D deficiency Bipolar affective disorder in remission (HCC) documented in this encounter Care Teams Bb Shot Packer Relationship Specialty Start Date End Date Jacques Alcantara MD PCP - General Family Medicine 12/15/12 [facility], PCP - Primary Care Clinic 3 09/16/17 [facility] Family Phy documented as of this encounter
--- OUTSIDE RECORDS SUMMARY | 2022-02-11 11:13 | XMS_ITS | Encounter Summary ---
:1975 Author Organization [facility] Address [address] [place] [address] Care Team Providers Name Role Phone Jacques Alcantara MD Primary Care Provider Unavailable [facility] Ph Unavailable Unavailable Reason for Referral (Routine) - Closed Specialty Diagnoses / Procedures Referred By Contact Refer red To Contact Diagnoses Pre-op exam Kiel Jackson PA-C Procedures BASIC METAB PROFILE [address] [place], [place] [address] Referral ID Status Reason Start Date Expiration Date Visits Requ ested Visits Authorized [id number] Closed 06/09/2016 12/06/2016 1 1 ROOM TAPPER Reason for Visit Reason Comments Pre Op exam bilateral nail removal on to es 06/10/16 Dr Armendariz Encounter Details Date Type Department Care Team Description 06/09/2016 Office Visit [facility] Kiel Jackson Pre- op exam (Primary Clinic - [facility] SONYA Webber Dx) [address] [place] [address] [place], [place] [address] [place] [address] [phone] Social History Tobacco Use Types Packs/Day Years [...] Comments Blood Pressure 104/74 06/09/2016 10:05 AM POT ROOM TAPPER Pulse 68 06/09/2016 10:05 AM POT ROOM TAPPER Temperature 36.6 ??C (97.9 ??F) 06/09/2016 10:05 AM POT ROOM TAPPER Respiratory Rate 16 06/09/2016 10:05 AM POT ROOM TAPPER Oxygen Saturation 95% 06/09/2016 10:05 AM POT ROOM TAPPER Inhaled Oxygen Concentration - - Weight 99.7 kg (219 lb 11.2 oz) 06/09/2016 10:05 AM POT ROOM TAPPER Height 154.9 cm (5' 1) 06/09/2016 10:05 AM POT ROOM TAPPER Body Mass Index 41.51 06/09/2016 10:05 AM POT ROOM TAPPER documented in this encounter Progress Notes Kiel Jackson PA-C - 06/09/2016 3:30 PM CST Results noted. No contraindication for surgery. ROOM TAPPER Kiel Jackson PA-C - 06/09/2016 11:56 AM CST Results noted. Will be uploaded in preop. ROOM TAPPER Kiel Jackson PA-C - 06/09/2016 10:00 AM CST Preoperative History and Physical Examination Date of Examination: 06/09/2016 Proposed Surgery: Bilateral Toe Nail Removal of the Great toe and 2nd Toe bilaterally Surgeon: Dr. Armendariz Date of Surgery: 06/10/2016 Location of Surgery: [facility] Akhilleicynthia Encarnacion presents today for a pre-operative evaluation [...] mild intermittant/ more inWinter ??? Bipolar disorder ([facility]) 1999 [facility] ??? Chronic mental illness 1990 ??? Depression [...] Adult,Disposable (DEPEND UNDERWEAR L-XL) [facility]Non-Drug; Combo Route) route three times a day. [...] 0.65% (SALINE NASAL MIST) 0.65 % Nasal [place] SprA Instill 1-2 Sprays into EACH nare [...] of this patient. Sincerely, Kiel Jackson PA-C ROOM TAPPER documented in this encounter Plan of Treatment Not on filedocumented as of this encounter Procedures Procedure Name Priority Date/Time Associated Diagnosis Comme nts CBC Routine 06/09/2016 10:30 AM Pre-op exam Results for this (HGB,HCT,WBC,RBC,PL POT ROOM TAPPER procedur e are in ATELE[employer]) OP the results section. BASIC METAB PROFILE Routine 06/09/2016 10:30 AM Pre-op exam R esults for this POT ROOM TAPPER procedure are i n the results section. documented in this encounter Results BASIC METAB PROFILE (06/09/2016 10:30 AM POT ROOM TAPPER) P athologist Signature SODIUM 139 136 - 145 06/09/2016 [facility] mMol/L 12:57 PM POT ROOM TAPPER LABORATORY POTASSIUM 3.8 3.5 - 5.1 06/09/2016 [facility] mMol/L 12:57 PM POT ROOM TAPPER LABORATORY CHLORIDE 108 98 - 112 06/09/2016 [facility] mMol/L 12:57 PM POT ROOM TAPPER LABORATORY CARBON DIOXIDE 23 21 - 32 06/09/2016 [facility] mMol/L 12:57 PM POT ROOM TAPPER LABORATORY BUN (UREA 8 7 - 24 06/09/2016 [facility] NITRO) mg/dL 12:57 PM POT ROOM TAPPER LABORATORY CREATININE 0.86 0.55 - 06/09/2016 [facility] 1.02 mg/dL 12:57 PM POT ROOM TAPPER LABORATORY EST GFR >60 >60 mL/min 06/09/2016 [facility] (CKD-EPI) 12:57 PM POT ROOM TAPPER LABORATORY EST GFR IF >60 >60 mL/min 06/09/2016 [facility] AM 12:57 PM POT ROOM TAPPER LABORATORY GLUCOSE 98 74 - 106 06/09/2016 [facility] mg/dL 12:57 PM POT ROOM TAPPER LABORATORY CALCIUM, SERUM 8.6 8.5 - 10.1 06/09/2016 [facility] mg/dL 12:57 PM POT ROOM TAPPER LABORATORY ANION GAP 8.0 0.0 - 15.0 06/09/2016 [facility] mMol/L 12:57 PM POT ROOM TAPPER LABORATORY Specimen Anatomical Collection Method / Collection Time Recei philipp Time (Source) Location / Volume Laterality Blood Venipuncture / 06/09/2016 10:30 7 Unknown AM POT ROOM TAPPER 10:30 AM POT ROOM TAPPER Kiel Jackson PA-C CHEMISTRY ORDERABLE Performing Organization Address City/State/ZIP Code Phon e Number [facility] [address] [place] [address] LABORATORY [facility] [address] [place], [place] [address] CBC (HGB,HCT,WBC,RBC,PLATELET) OP (06/09/2016 10:30 AM POT ROOM TAPPER) P athologist Signature WBC OP 5.2 4.3 - 10.8 06/09/2016 [facility] K/uL 10:47 AM [facility] RBC OP 4.38 4.20 - 06/09/2016 [facility] 5.40 M/uL 10:47 AM [facility] HEMOGLOBIN OP 14.2 12.0 - 06/09/2016 [facility] 16.0 gm/dL 10:47 AM [facility] HEMATOCRIT OP 41.8 36.0 - 06/09/2016 [facility] 48.0 % 10:47 AM [facility] MCV OP 95 80 - 100 06/09/2016 [facility] fl 10:47 AM [facility] MCH OP 32.4 27.0 - 06/09/2016 [facility] 33.0 pg 10:47 AM [facility] MCHC OP 34.0 33.0 - 06/09/2016 [facility] 36.0 gm/dL 10:47 AM POT ROOM TAPPER [facility] RDW OP 12.2 11.5 - 06/09/2016 [facility] 14.5 % 10:47 AM POT ROOM TAPPER [facility] PLATELET COUNT 215 150 - 400 06/09/2016 [facility] OP K/uL 10:47 AM POT ROOM TAPPER [facility] MPV OP 10.1 6.5 - 12.0 06/09/2016 [facility] 10:47 AM POT ROOM TAPPER [facility] Specimen Anatomical Collection Method / Collection Time Recei philipp Time (Source) Location / Volume Laterality Blood Venipuncture / 06/09/2016 10:30 7 Unknown AM POT ROOM TAPPER 10:30 AM POT ROOM TAPPER Kiel Jackson PA-C HEMATOLOGY ORDERABLE Performing Organization Address City/State/ZIP Code Phon e Number [address] [facility] [address] [facility] - [address] [place] [address] [place] [address] [facility] documented in this encounter Visit Diagnoses Diagnosis Pre-op exam - Primary Preoperative examination, unspecified documented in this encounter Care Teams Nursing Service Administrator Relationship Specialty Start Date End Date Jacques Alcantara MD PCP - General Family Medicine 12/15/12 [facility], PCP - Primary Care Clinic 3 09/16/17 [facility] Family [facility]y documented as of this encounter
--- OUTSIDE RECORDS SUMMARY | 2022-02-11 11:13 | XMS_ITS | Encounter Summary ---
:1975 Author Organization [facility] Address [address] [place] [address] Care Team Providers Name Role Phone Jacques Alcantara MD Primary Care Provider Unavailable [facility] Unavailable Unavailable Reason for Visit Procedure (Routine) - Closed Specialty Diagnoses / Procedures Referred By Contact Refer red To Contact Sleep Medicine Diagnoses Snoring Jacques Alcantara MD [facility] C[facility] Procedures [facility] SLEEP STUDY (OVERNIGHT) [address] [facility] [place] [address] [place] [address] Phone: Fax: Referral ID Status Reason Start Date Expiration Visits Visits Date Requested Authorized [id number] Closed Continuity of 08/03/2015 1 1 Care Encounter Details Date Type Department Care Team Description 08/09/2015 Hospital Encounter SLEEP LAB [address] [facility] [place] [address] Social History Tobacco Use Types [...] mouth 90 Tab 3 01/25/2015 08/1 12/2015 [id number] Once Daily. 191-120-76-0.5 mg Oral TabIndications: Bilateral low back pain [...] MIST) 0.65 % into EACH nare Nasal [place] every 1 (one) hour SprAIndications: Sinus as [...] Name Priority Date/Time Associated Diagnosis Comme nts [facility] SLEEP STUDY Routine 08/14/2015 2:30 AM CDT Snoring (OVERNIGHT) documented in this encounter Results [facility] SLEEP STUDY (OVERNIGHT) (08/14/2015 2:30 AM CDT) Narrative This result has an attachment that is no t available. Jacques Alcantara MD PROCEDURE ORDERABLE documented in this encounter Visit Diagnoses Diagnosis Snoring - Primary Other dyspnea and respiratory abnormalit y Fatigue, unspecified type Insomnia, unspecified type documented in this encounter Care Teams Marketing Business Analyst Relationship Specialty Start Date End Date Jacques Alcantara MD PCP - General Family Medicine 12/15/12 [facility], PCP - Primary Care Clinic 3 09/16/17 [facility] documented as of this encounter
--- OUTSIDE RECORDS SUMMARY | 2022-02-11 11:13 | XMS_ITS | Encounter Summary ---
:1975 Author Organization [facility] Address [address] [place] [address] Care Team Providers Name Role Phone Jacques Alcantara MD Primary Care Provider Unavailable [facility] Family Phy Unavailable Unavailable Reason for Visit Reason Comments Toe swelling had great toenails removed , certified bench jeweler technician called in abx today for possible inf, wanted to have them checked out Encounter Details Date Type Department Care Team Description 07/03/2016 Office Visit [facility] Kiel Jackson Post op infection Clinic - [facility] SONYA Webber (Primary Dx) [address] [place] [address] [facility] [address] [phone] Social History Tobacco Use Types Packs/Day Years [...] Comments Blood Pressure 114/74 07/03/2016 2:00 PM SUPERVISOR HOT DIP TINNING Pulse 77 07/03/2016 2:00 PM SUPERVISOR HOT DIP TINNING Temperature 36.6 ??C (97.8 ??F) 07/03/2016 2:00 PM SUPERVISOR HOT DIP TINNING Respiratory Rate 16 07/03/2016 2:00 PM SUPERVISOR HOT DIP TINNING Oxygen Saturation 96% 07/03/2016 2:00 PM SUPERVISOR HOT DIP TINNING Inhaled Oxygen Concentration - - Weight 97.8 kg (215 lb 11.2 oz) 07/03/2016 2:00 PM SUPERVISOR HOT DIP TINNING Height 154.9 cm (5' 1) 07/03/2016 2:00 PM SUPERVISOR HOT DIP TINNING Body Mass Index 40.76 07/03/2016 2:00 PM SUPERVISOR HOT DIP TINNING documented in this encounter Progress Notes Kiel [...] and discharge. She has spoken with the certified bench jeweler technician to perform the procedure. He is sent [...] more inWinter ??? Bipolar disorder (HCC) 1999 [facility] ??? Chronic mental illness 1990 ??? Depression [...] Adult,Disposable (DEPEND UNDERWEAR L-XL) 1 Each by [facility].(Non- Drug; Combo Route) route three times a [...] 0.65% (SALINE NASAL MIST) 0.65 % Nasal [place] SprA Instill 1- 2 Sprays into EACH [...] removed. The patient has spoken with her certified bench jeweler technician, Dr. Armendariz, who has provided 10 days [...] start understanding. She'll follow up with her certified bench jeweler technician if she has any other concerns. There are document notes stating that her certified bench jeweler technician will see her inclinic at [place] tomorrow if she has any other concerns. Kiel Jackson PA-C [facility] RVISOR HOT DIP TINNING documented in this encounter Plan of Treatment [...] mg Right Upper Gluteal intraMUSCULAR injection 60 SUPERVISOR HOT DIP TINNING mg 60 mg, IntraMUSCULAR, ONCE, 1 dose, On Mikala 07/03/16 at 1415, Maximum duration of treatment is 5 days. documented in this encounter Care Teams Medical Auditor Relationship Specialty Start Date End Date Jacques Alcantara MD PCP - General Family Medicine 12/15/12 [facility], PCP - Primary Care Clinic 3 09/16/17 [facility] documented as of this encounter
--- OUTSIDE RECORDS SUMMARY | 2022-02-11 11:13 | XMS_ITS | Encounter Summary ---
:1975 Author Organization [facility] Address [address] [place] [address] Care Team Providers Name Role Phone Jacques Alcantara MD Primary Care Provider Unavailable [facility] Ph Unavailable Unavailable Reason for Visit Reason Comments Post op check Toes still sore and bruised. Encounter Details Date Type Department Care Team Description 06/18/2016 Office Visit [facility] Luis Armendariz Ma cronychia (Primary Dx); Clinic - [place] DPM Tinea unguium; [address] Joao montoya [place], [place] [address] [phone] [place], [place] [address] (Wo rk) Social History Tobacco Use Types [...] Comments Blood Pressure 110/70 06/18/2016 9:42 AM FIRST CRUSHER Pulse 68 06/18/2016 9:42 AM FIRST CRUSHER Temperature 36.6 ??C (97.9 ??F) 06/18/2016 9:42 AM FIRST CRUSHER Respiratory Rate 16 06/18/2016 9:42 AM FIRST CRUSHER Oxygen Saturation - - Inhaled Oxygen Concentration [...] some inadvertent typographical errors may be present. T CRUSHER documented in this encounter Plan of Treatment Not on filedocumented as of this encounter Visit Diagnoses Diagnosis Macronychia - Primary Other specified disease of nail Tinea unguium Dermatophytosis of nail Ingrowing nail documented in this encounter Care Teams Informatica Mdm Developer Relationship Specialty Start Date End Date Jacques Alcantara MD PCP - General Family Medicine 12/15/12 [facility], PCP - Primary Care Clinic 3 09/16/17 [facility] documented as of this encounter
--- OUTSIDE RECORDS SUMMARY | 2022-02-11 11:13 | XMS_ITS | Encounter Summary ---
:1975 Author Organization [facility] Address [address] [place] [address] Care Team Providers Name Role Phone Jacques Alcantara MD Primary Care Provider Unavailable [facility] Ph[facility]dy Unavailable Unavailable Reason for Visit Reason Comments Follow up skilled nursing discharge. Leg swelling Encounter Details Date Type Department Care Team Description 12/27/2015 Office Visit [facility] Jacques Alcantara S/P l umbar and lumbosacral fusion by anterior technique (Primary Dx); Clinic - Lashell Veliz MD Gastroesophageal reflux dise ase, esophagitis presence not specified; [address] Bilateral leg edema [place], [place] [address] Social History Tobacco Use Types [...] anterior technique - patient is discharged from skilled nursing states she is doing well at home. [...] the surgery occurred. She was in the skilled nursing doing rate regular physical therapy. Current Outpatient [...] 0.65% (SALINE NASAL MIST) 0.65 % Nasal [place] SprA Instill 1- 2 Sprays into EACH [...] by anterior technique - offered referral for WHAT JOB TITLES MEAN to assist with home care nurse and [...] Edema documented in this encounter Care Teams Offset Duplicating Machine Operator Relationship Specialty Start Date End Date Jacques Alcantara MD PCP - General Family Medicine 12/15/12 [facility], PCP - Primary Care Clinic 3 09/16/17 [facility] Family Phy documented as of this encounter
--- OUTSIDE RECORDS SUMMARY | 2022-02-11 11:13 | XMS_ITS | Encounter Summary ---
:1975 Author Organization [facility] Address [address] [place] [address] Care Team Providers Name Role Phone Jacques Alcantara MD Primary Care Provider Unavailable [facility] Unavailable Unavailable Reason for Visit Inpatient Admission Specialty Diagnoses / Procedures Referred By Contact Refer red To Contact Procedures [id number] [phone] Referral ID Status Reason Start Date Expiration Date Visits Requ ested Visits Authorized [id number] 1 1 Encounter Details Date Type Department Care Team Description 06/10/2016 Surgery [facility] Alejandro Armendariz DPM MATRIXECTOMY OF LEFT Hospital Operating [address] [place] AND SECOND Room [address] [place] [phone] (Wo rk) Surgery Details Date/Time Status Location OR Service Patient Case Class Case Type Trauma Class Case? 06/10/16 7:30 Posted [facility] ORS 05 Podiatry Same Day AM Surgery [...] Comments Blood Pressure 119/74 06/10/2016 9:22 AM CINDER DUMP CRANE OPERATOR Pulse 61 06/10/2016 9:22 AM CINDER DUMP CRANE OPERATOR Temperature 36.4 ??C (97.6 ??F) 06/10/2016 8:27 AM CINDER DUMP CRANE OPERATOR Respiratory Rate 16 06/10/2016 8:27 AM CINDER DUMP CRANE OPERATOR Oxygen Saturation 97% 06/10/2016 8:50 AM CINDER DUMP CRANE OPERATOR Inhaled Oxygen Concentration - - Weight 99.3 kg (219 lb) 06/10/2016 6:10 AM CINDER DUMP CRANE OPERATOR Height 154.9 cm (5' 1) 06/09/2016 11:04 AM CINDER DUMP CRANE OPERATOR Body Mass Index 41.38 06/09/2016 11:04 AM CINDER DUMP CRANE OPERATOR documented in this encounter Discharge Instructions Discharge [...] symptoms are severe or life threatening * ER DUMP CRANE OPERATOR documented in this encounter Medications at [...] MIST) 0.65 into EACH nare % Nasal [place] every 1 (one) hour SprAIndications: Sinus as [...] and 2nd toenails, bilateral Luis Armendariz DPM [facility] Podiatry Service ER DUMP CRANE OPERATOR Darrel Vásquez MD - 06/10/2016 6:57 AM CST History and Physical Update I have reviewed the patient's History and Physical and have examined the patient in the pre-op area.The patient denies any interval changes in medical condition since the H&P . Darrel Vásquez MD 06/10/2016 6:57 AM ER DUMP CRANE OPERATOR documented in this encounter Nursing Notes Erika Bucio RN - 06/10/2016 9:37 AM CST Discharged by volunteer/NA per wheelchair. Family / Patient received and understands instructions, all questions addressed, belongings returned, and prescriptions received. Contact patient at home for post-procedure call. Okay to leave a message. ER DUMP CRANE OPERATOR documented in this encounter OR Notes OR Surgeon - Luis Armendariz DPM - 06/10/2016 9:37 AM CST This procedure note has been dictated: # [id number] Luis Armendariz DPM [facility] Podiatry Service [phone] ER DUMP CRANE OPERATOR OR Surgeon - Luis Armendariz DPM - [...] the right hallux and second digit. A [place] elevator was used to free up the [...] appointment. Luis Armendariz DPM /CD Dictation ID: [id number] ER DUMP CRANE OPERATOR OR Surgeon - Luis Armendariz DPM - 06/10/2016 8:29 AM CST POST-OPERATIVE NOTE PREOPERATIVE DIAGNOSIS DX: BILATERAL INGROWN/DYSTROPHIC PAINFUL HALLUX AND SECOND TOENAILS POSTOPERATIVE DIAGNOSIS same Procedure(s): MATRIXECTOMY OF LEFT HALLUX AND SECOND TOENAIL MATRIXECTOMY OF RIGHT HALLUX AND SECOND TOENAIL Surgeon(s): Luis Armendariz DPM Canter, Keith A., DPM Environmental Officer(s): None Other surgical staff (if any): Circulating nurse: Yury Rainey RN; Rosey Molina RN accounting technician: Dena Browne Michelle Anesthesia MAC EBL: 2 ml Specimen Removed: None Complications: none Findings/Conclusions: Dystrophic and thickened toenails Condition on discharge from OR: Satisfactory REPORT OF OPERATION/ PROCEDURE See dictated note. Luis Armendariz DPM [facility] Podiatry Service ER DUMP CRANE OPERATOR documented in this encounter Plan of Treatment Scheduled Referrals Name Type Priority Associated Diagnoses Order S chedule Follow Up Follow Up Routine Ordered: 2016 documented as of this encounter Procedures Procedure Name Priority Date/Time Associated Diagnosis Comme nts EXCISION TOENAIL 06/10/2016 7:27 AM DX: BILATERAL CINDER DUMP CRANE OPERATOR INGROWN/DYSTROPHIC PAINFUL HALLUX AND SECOND TOENAILS EXCISION TOENAIL 06/10/2016 7:27 AM DX: BILATERAL CINDER DUMP CRANE OPERATOR INGROWN/DYSTROPHIC PAINFUL HALLUX AND SECOND TOENAILS POTASSIUM STAT 06/10/2016 6:23 AM Results f or this CINDER DUMP CRANE OPERATOR procedure are i n the results section. documented in this encounter Results Potassium, Serum (06/10/2016 6:23 AM CINDER DUMP CRANE OPERATOR) athologist Signature POTASSIUM 3.8 3.5 - 5.1 06/10/2016 [facility] mMol/L 7:14 AM CINDER DUMP CRANE OPERATOR LABORATORY Specimen Anatomical Collection Method Collection Time Receive d Time (Source) Location / / Volume Laterality Blood PERIPHERAL BLOOD 06/10/2016 6:23 AM 06/10 6:49 SPECIMEN / Unknown CINDER DUMP CRANE OPERATOR AM CINDER DUMP CRANE OPERATOR Lexy Aguayo MD CHEMISTRY ORDERABLE Performing Organization Address City/State/ZIP Code Phon e Number [address] [address] [address] [address] documented in this encounter [...] syringe 5 mL Given 06/10/2016 6:27 AM CINDER DUMP CRANE OPERATOR 5 mL 5 mL, Intravenous, NEEDED, Starting on Thu06/10/16 at 0600, Until Thu06/10/16 at 1537, Line Care acetaminophen (TYLENOL) tablet 325-650 m g 325-650 mg (1-2 tablet), oral, ONCE NEEDED, Startin g on Thu06/10/16 at 0836, Until Thu06/10/16 at 153, Phase 1/2, mild pain atropine syringe 0.5 mg 0.5 mg, Intravenous, NEEDED, Starting on Thu06/10/16 at 0836, Until Thu06/10/16 at 153, Phase 1/2, bradycardia, for yazmin den bradycardia; for heart rate less than 50 bpm WITH HYPOTENSION - NOTIFY ANESTHESIOLOGIST bacitracin topical ointment Given 06/10/2016 7:55 AM 1 Application Procedur al INTRA-PROCEDURE NEEDED, CINDER DUMP CRANE OPERATOR Starting on Thu06/10/16 at 0755, Until Thu06/10/16 [...] for pain control per recommendation of the [place] in Society, [place] for Safe Medication Practices (ISMP) and the [facility] [facility] Association. metoclopramide HCl (REGLAN) injection 10 [...] 89% topical solution Given 06/10/2016 7:55 AM CINDER DUMP CRANE OPERATOR 7 mL Proce dural INTRA-PROCEDURE NEEDED, Starting on Thu06/10/16 at 0755, Until Thu06/10/16 at 1537, Intra-Op documented in this encounter Active and Recently Administered Medications Times are shown in CINDER DUMP CRANE OPERATOR. Scheduled Medication Order 06/08/2016 06/09/2016 06/10/2016 saline FLUSH syringe 5 mL 0615 (Due) 5 mL, Intravenous, EVERY 8 HOURS, First dose on Thu06/10/16 at 0615, Until Discontinued ceFAZolin (ANCEF) IV syringe (OP) (COMPLETED) 0733 (Given - Provider: Aydee Mary APRN, HOOK AND EYE MACHINE OPERATOR) Intravenous, ONCE ON INDUCTION, 1 dose, Starting [...] recommendation of the [place] Pain Society, [place] for Safe Medication Practices (ISMP) and the [place] [facility]. metoclopramide HCl (REGLAN) injection 10 [...] 0810 (Given - Provider: Aydee Mary APRN, HOOK AND EYE MACHINE OPERATOR) 1 dose, Starting on Thu06/10/16 at 0638, Until Thu06/10/16 at 06 38 documented in this encounter Care Teams Web Marketing Analyst Relationship Specialty Start Date End Date Jacques Alcantara MD PCP - General Family Medicine 12/15/12 [facility], PCP - Primary Care Clinic 3 09/16/17 [facility] documented as of this encounter
--- OUTSIDE RECORDS SUMMARY | 2022-02-11 11:13 | XMS_ITS | Encounter Summary ---
:1975 Author Organization [facility] Address [address] [place] [address] Care Team Providers Name Role Phone Jacques Alcantara MD Primary Care Provider Unavailable [facility] Family Phy Unavailable Unavailable Reason for Visit Reason Comments Smoking cessation chantix works best. Encounter Details Date Type Department Care Team Description 07/17/2015 Office Visit [facility] Jacques Alcantara, Weston walker (Primary Dx); Clinic - [facility] Depression with anxiety [address] [place] [address] Social History Tobacco Use Types Packs/Day Years [...] Comments Blood Pressure 128/74 07/17/2015 3:21 PM ASSISTANT COUNSEL Pulse 85 07/17/2015 3:21 PM ASSISTANT COUNSEL Temperature 36.9 ??C (98.5 ??F) 07/17/2015 3:21 PM ASSISTANT COUNSEL Respiratory Rate 16 07/17/2015 3:21 PM ASSISTANT COUNSEL Oxygen Saturation - - Inhaled Oxygen Concentration - - Weight 103.9 kg (229 lb) 07/17/2015 3:21 PM ASSISTANT COUNSEL Height 154.9 cm (5' 1) 07/17/2015 3:21 PM ASSISTANT COUNSEL Body Mass Index 43.27 07/17/2015 3:21 PM ASSISTANT COUNSEL documented in this encounter Progress Notes Jacques [...] TID. 180 Cap 2 ? ? Glucosamine &Srdeorniw-ZD-Kew3 787-530-81-0.5 mg Oral Tab Take 1 Tab by [...] 0.65% (SALINE NASAL MIST) 0.65 % Nasal [place] SprA Instill 1- 2 Sprays into EACH [...] patient and/or guardian. Maria Del Rosario Keren Freedom and/or guardian engaged in the decision making process and verbalized understanding of the optionsdiscussed and agreed with the final plan. STANT COUNSEL documented in this encounter Plan of Treatment Not on filedocumented as of this encounter Visit Diagnoses Diagnosis Smoker - Primary Tobacco use disorder Depression with anxiety Dysthymic disorder documented in this encounter Care Teams Painter Airbrush Relationship Specialty Start Date End Date Jacques Alcantara MD PCP - General Family Medicine 12/15/12 [facility], P[facility] - Primary [facility] documented as of this encounter
--- OUTSIDE RECORDS SUMMARY | 2022-02-11 11:13 | XMS_ITS | Encounter Summary ---
:1975 Author Organization [facility] Address [address] [place] [address] Care Team Providers Name Role Phone Jacques Alcantara MD Primary Care Provider Unavailable [facility] Unavailable Unavailable Reason for Referral (Routine) - Closed Specialty Diagnoses / Procedures Referred By Contact Refer red To Contact Diagnoses Preop cardiovascular exam Jacques Alcantara MD Procedures CULT-URINE [address] [place] [address] Referral ID Status Reason Start Date Expiration Date Visits Requ ested Visits Authorized [id number] Closed 08/03/2015 01/30/2016 1 1 rocedure (Routine) - Closed Specialty Diagnoses / Procedures Referred By Contact Refer red To Contact Sleep Medicine Diagnoses Snoring Jacques Alcantara MD [facility] Procedures [facility] SLEEP STUDY (OVERNIGHT) [address] [place] [address] [place] [address] Phone: Fax: Referral ID Status Reason Start Date Expiration Visits Visits Date Requested Authorized [id number] Closed Continuity of 08/03/2015 1 1 Care (Routine) - Closed Specialty Diagnoses / Procedures Referred By Contact Refer red To Contact Diagnoses Preop cardiovascular exam Jacques Alcantara MD Procedures BASIC METAB PROFILE [address] [place] [address] Referral ID Status Reason Start Date Expiration Date Visits Requ ested Visits Authorized [id number] Closed 08/03/2015 01/30/2016 1 1 Reason for Visit Reason Comments Pre Op exam Rx refill albuterol Rx Encounter Details Date Type Department Care Team Description 08/03/2015 Office Visit [facility] Jacques Alcantara Preop cardiovascular exam (Primary Dx); Clinic - Lashell Veliz MD Bronchospasm; [address] [facility] Degenerat ion of intervertebral disc of lumbosacral region; S.E. Snoring; [place], [place] [address] Bipolar affective disorder, remission status unspecified ([facility]); [phone] Tobacco abuse Social History Tobacco Use Types [...] Date of Surgery: 08/21/15 Location of Surgery: [facility] Maria Del Rosario Servin presents today in [...] Depression with anxiety ??? Bipolar disorder 1999 [facility] ??? RLS (restless legs syndrome) 2003 [...] mg Oral Cap 2 caps TID. Glucosamine &Wzczigfij-YY-Ijo4 020-263-33-0.5 mg Oral Tab Take 1 Tab by [...] 0.65% (SALINE NASAL MIST) 0.65 % Nasal [place] SprA Instill 1-2 Sprays into EACH nare [...] for surgery as above. Snoring - Plan: [facility] SLEEP STUDY (OVERNIGHT) - pt denies apnea [...] Date of Surgery: 08/21/15 Location of Surgery: [facility] Fax#: [phone] documented in this encounter Plan of Treatment Not on filedocumented as of this encounter Procedures Procedure Name Priority Date/Time Associated Diagnosis Comme nts [facility] SLEEP STUDY Routine 08/14/2015 2:30 AM Snoring [...] results section. documented in this encounter Results [facility] SLEEP STUDY (OVERNIGHT) (08/14/2015 2:30 AM CDT) Narrative This result has an attachment that is no t available. Jacques Alcantara MD PROCEDURE ORDERABLE (ABNORMAL) CULT-URINE (08/03/2015 11:20 AM CDT) Component Value Ref Test Analysis Performed At [facility] Range Method Time Signature Urine Culture 30,000 cfu/ml of 08/04/2015 [place] Diphtheroides (A) 2:21 PM CDT [facility] LABORATORY Urine Culture 2,000 cfu/ml of 08/04/2015 [place] Gram Positive 2:21 PM T [facility] Organism (A) LABORATORY Specimen Anatomical Collection Method Collection Time Receive d Time (Source) Location / / Volume Laterality Urine 08/03/2015 11:20 08/03/2015 AM CDT 11:20 AM CDT Jacques Alcantara MD MICROBIOLOGY ORDERABLE Performing Organization Address City/State/ZIP Code Phon e Number [place] [id number] [facility] SIMA Rodriguez [address] LABORATORY [facility] [address] [place] SIMA [place] [address] (ABNORMAL) URINALYSIS MICROSCOPY OP (LAB USE ONLY) (08/03/2015 11:20 AM CDT) [facility] Method Time Signature RBC UA OP None Seen None Seen, 08/03/2015 [place] Occasional 11:55 AM [facility] /[facility] FP WBC UA OP 10-14 (A) None Seen, 08/03/2015 [place] Occasional, 11:55 AM [facility] 1-4 /[facility] FP BACTERIA UA Present (A) Absent 08/03/2015 [place] OP 11:55 AM [facility] FP CLUE CELLS UA Present (A) Absent 08/03/2015 [place] OP 11:55 AM [facility] Specimen Anatomical Collection Method Collection Time Receive d Time (Source) Location / / Volume Laterality Urine 08/03/2015 11:20 08/03/2015 AM CDT 11:20 AM CDT Jacques Alcantara MD URINE ORDERABLE Performing Organization Address City/State/ZIP Code Phon e Number [address] [address] - [address] [address] [facility] (ABNORMAL) URINALYSIS W/ MICRO/CULTURE REFLEX OP (08/03/2015 11:20 AM CDT) [facility] Method Time Signature UA PH OP 6.0 5.0, 5.5, 08/03/2015 [facility] 6.0, 6.5, 11:37 AM [facility] 7.0, 7.5, [facility] - 8.0 [facility] FP UA SPECIFIC 1.025 1.015, 08/03/2015 [facility] GRAVITY OP 1.020, 1.025 11:37 AM [facility] FP UA PROTEIN OP 30 (A) Negative 08/03/2015 [facility] mg/dL 11:37 AM [facility] FP UA GLUCOSE OP Negative Negative 08/03/2015 [facility] mg/dL 11:37 AM [facility] FP UA KETONES OP Negative Negative 08/03/2015 [facility] mg/dL 11:37 AM [facility] UA BILIRUBIN OP Negative Negative 08/03/2015 [facility] 11:37 AM [facility] UA BLOOD OP Negative Negative, 08/03/2015 [facility] Trace 11:37 AM [facility] UA UROBILINOGEN 0.2 0.2, 1.0 08/03/2015 [place] OP EU/dL 11:37 AM [facility] UA LEUKOCYTE Small (A) Negative, 08/03/2015 [place] ESTERASE OP Trace 11:37 AM [facility] UA NITRITE OP Negative Negative 08/03/2015 [place] 11:37 AM [facility] Specimen Anatomical Collection Method Collection Time Receive d Time (Source) Location / / Volume Laterality Urine 08/03/2015 11:20 08/03/2015 AM CDT 11:20 AM CDT Jacques Alcantara MD MICROBIOLOGY ORDERABLE Performing Organization Address City/State/ZIP Code Phon e Number [address] [address] - [address] [address] [facility] CBC (HGB,HCT,WBC,RBC,PLATELET) OP (08/03/2015 11:20 AM CDT) athologist Signature WBC OP 6.0 4.3 - 10.8 08/03/2015 [facility] K/uL 11:27 AM [facility] RBC OP 4.39 4.20 - 08/03/2015 [facility] 5.40 M/uL 11:27 AM [facility] HEMOGLOBIN OP 14.2 12.0 - 08/03/2015 [facility] 16.0 gm/dL 11:27 AM [facility] HEMATOCRIT OP 41.4 36.0 - 08/03/2015 [facility] 48.0 % 11:27 AM [facility] MCV OP 94 80 - 100 08/03/2015 [facility] fl 11:27 AM T [facility] MCH OP 32.3 27.0 - 08/03/2015 [facility] 33.0 pg 11:27 AM T [facility] MCHC OP 34.3 33.0 - 08/03/2015 [facility] 36.0 gm/dL 11:27 AM [facility] RDW OP 12.3 11.5 - 08/03/2015 [facility] 14.5 % 11:27 AM [facility] PLATELET COUNT 227 150 - 400 08/03/2015 [facility] OP K/uL 11:27 AM CDT [facility] MPV OP 9.6 6.5 - 12.0 08/03/2015 [facility] 11:27 AM CDT [facility] Specimen Anatomical Collection Method / Collection Time Recei philipp Time (Source) Location / Volume Laterality Blood Venipuncture / 08/03/2015 11:20 201 6 Unknown AM CDT 11:20 AM CDT Jacques Alcantara MD HEMATOLOGY ORDERABLE Performing Organization Address City/State/ZIP Code Phon e Number [address] [phone] - [address] [address] [facility] (ABNORMAL) BASIC METAB PROFILE (08/03/2015 11:20 AM CDT) [facility] gist Method Time Signature SODIUM 137 136 - 145 08/03/2015 [facility] mMol/L 3:31 PM CDT LABORATORY POTASSIUM 3.6 3.5 - 5.1 08/03/2015 [facility] mMol/L 3:31 PM CDT LABORATORY CHLORIDE 108 98 - 112 08/03/2015 [facility] mMol/L 3:31 PM CDT LABORATORY CARBON DIOXIDE 21 21 - 32 08/03/2015 [facility] mMol/L 3:31 PM CDT LABORATORY BUN (UREA 11 7 - 24 08/03/2015 [facility] NITRO) mg/dL 3:31 PM CDT LABORATORY CREATININE 1.12 (H) 0.55 - 08/03/2015 [facility] 1.02 mg/dL 3:31 PM CDT LABORATORY EST GFR 53 (L) >60 mL/min 08/03/2015 [facility] (CKD-EPI) 3:31 PM CDT LABORATORY EST GFR IF >60 >60 mL/min 08/03/2015 [facility] AM 3:31 PM CDT LABORATORY GLUCOSE 138 (H) 74 - 106 08/03/2015 [facility] mg/dL 3:31 PM CDT LABORATORY CALCIUM, SERUM 8.2 (L) 8.5 - 10.1 08/03/2015 [facility] mg/dL 3:31 PM CDT LABORATORY ANION GAP 8.0 0.0 - 15.0 08/03/2015 [facility] mMol/L 3:31 PM CDT LABORATORY Specimen Anatomical Collection Method / Collection Time Recei philipp Time (Source) Location / Volume Laterality Blood Venipuncture / 08/03/2015 11:20 6 Unknown AM CDT 11:20 AM CDT Jacques Alcantara MD CHEMISTRY ORDERABLE Performing Organization Address City/State/ZIP Code Phon e Number [facility] [address] [place] [address] LABORATORY [facility] [address] [place], [place] [address] documented in this encounter Visit Diagnoses Diagnosis Preop cardiovascular exam - Primary Pre-operative cardiovascular examination Bronchospasm Acute bronchospasm Degeneration of intervertebral disc of l umbosacral region Snoring Other dyspnea and respiratory abnormalit y Bipolar affective disorder, remission st atus unspecified (HCC) Tobacco abuse Tobacco use disorder documented in this encounter Care Teams Podiatry Professor Relationship Specialty Start Date End Date Jacques Alcantara MD PCP - General Family Medicine 12/15/12 [facility], PCP - Primary Care Clinic 3 09/16/17 [facility] documented as of this encounter
--- OUTSIDE RECORDS SUMMARY | 2022-02-11 11:13 | XMS_ITS | Encounter Summary ---
:1975 Author Organization [facility] Address [address] [place] [address] Care Team Providers Name Role Phone Jacques Alcantara MD Primary Care Provider Unavailable [facility] Unavailable Unavailable Reason for Referral (Routine) - Closed Specialty Diagnoses / Procedures Referred By Contact Refer red To Contact Diagnoses Preop cardiovascular exam Jacques Alcantara MD Procedures BASIC METAB PROFILE [address] [place] [address] Referral ID Status Reason Start Date Expiration Date Visits Requ ested Visits Authorized [id number] Closed 10/30/2015 04/27/2016 1 1 Reason for Visit Reason Comments Pre Op exam Encounter Details Date Type Department Care Team Description 10/30/2015 Office Visit [facility] Jacques Alcantara Preop cardiovascular exam (Primary Dx); Clinic - Lashell Veliz MD Elevated fasting blood sugar ; [address] [facility] Snores; [place]. Bipolar affective disorder i n remission ([facility]); [place], [place] [address] Tobacco abuse; [phone] History of lumb ar fusion Social History [...] Date of Surgery: 11/07/15 Location of Surgery: [facility] Maria Del Rosario Servin presents [...] intermittant/ more inWinter ??? Bipolar disorder 1999 [facility] ??? Chronic mental illness 1990 ??? [...] mg oral capsule 3 caps TID. Glucosamine &Cgjmfojzs-WJ-[id number] [id number] mg Oral Tab Take 1 Tab by [...] 0.65% (SALINE NASAL MIST) 0.65 % Nasal [place] SprA Instill 1-2 Sprays into EACH nare [...] Date of Surgery: 11/07/15 Location of Surgery: [facility] Fax#: [phone] [facility]: [phone]. documented in this encounter Plan of Treatment [...] HGBA1C OP 6.2 (H) <=5.6 % 10/30/2015 [facility] 10:35 AM CDT [facility] EST AVERAGE 131 (H) <=114 10/30/2015 [facility] GLUCOSE OP mg/dL 10:35 AM CDT [facility] Specimen Anatomical Collection Method / Collection Time Recei philipp Time (Source) Location / Volume Laterality Blood VENOUS BLOOD Venipuncture / 10/30/2015 10:20 6 SPECIMEN / Unknown Unknown AM CDT 10:20 AM CDT Jacques Alcantara MD CHEMISTRY ORDERABLE Performing Organization Address City/State/ZIP Code Phon e Number [facility] [address] [facility] [address] - [facility] - [address] [place] [address] [facility] (ABNORMAL) BASIC METAB PROFILE (10/30/2015 10:20 AM CDT) Analysis Performed At Patho logist Time Signature SODIUM 138 136 - 145 10/30/2015 [facility] mMol/L 1:26 PM CDT LABORATORY POTASSIUM 3.7 3.5 - 5.1 10/30/2015 [facility] mMol/L 1:26 PM CDT LABORATORY CHLORIDE 107 98 - 112 10/30/2015 [facility] mMol/L 1:26 PM CDT LABORATORY CARBON DIOXIDE 27 21 - 32 10/30/2015 [facility] mMol/L 1:26 PM CDT LABORATORY BUN (UREA 6 (L) 7 - 24 10/30/2015 [facility] NITRO) mg/dL 1:26 PM CDT LABORATORY CREATININE 0.77 0.55 - 10/30/2015 [facility] 1.02 mg/dL 1:26 PM CDT LABORATORY EST GFR >60 >60 mL/min 10/30/2015 [facility] (CKD-EPI) 1:26 PM CDT LABORATORY EST GFR IF >60 >60 mL/min 10/30/2015 [facility] AM 1:26 PM CDT LABORATORY GLUCOSE 101 74 - 106 10/30/2015 [facility] mg/dL 1:26 PM CDT LABORATORY CALCIUM, SERUM 8.4 (L) 8.5 - 10.1 10/30/2015 [facility] mg/dL 1:26 PM CDT LABORATORY ANION GAP 4.0 0.0 - 15.0 10/30/2015 [facility] mMol/L 1:26 PM CDT LABORATORY Specimen Anatomical Collection Method / Collection Time Recei philipp Time (Source) Location / Volume Laterality Blood VENOUS BLOOD Venipuncture / 10/30/2015 10:20 06/21/201 6 SPECIMEN / Unknown Unknown AM CDT 10:20 AM CDT Jacques Alcantara MD CHEMISTRY ORDERABLE Performing Organization Address City/State/ZIP Code Phon e Number [facility] [address] [place] [address] LABORATORY [facility] [address] [address] (ABNORMAL) CBC (HGB,HCT,WBC,RBC,PLATELET) OP (10/30/2015 10:20 AM CDT) [facility] Time Signature WBC OP 6.0 4.3 - 10.8 10/30/2015 [facility] K/uL 10:30 AM CDT [facility] RBC OP 3.90 (L) 4.20 - 10/30/2015 [facility] 5.40 M/uL 10:30 AM T [facility] HEMOGLOBIN OP 12.5 12.0 - 10/30/2015 [facility] 16.0 gm/dL 10:30 AM T [facility] HEMATOCRIT OP 37.5 36.0 - 10/30/2015 [facility] 48.0 % 10:30 AM T [facility] MCV OP 96 80 - 100 10/30/2015 [facility] fl 10:30 AM CDT [facility] MCH OP 32.1 27.0 - 10/30/2015 [facility] 33.0 pg 10:30 AM CDT [facility] MCHC OP 33.3 33.0 - 10/30/2015 [facility] 36.0 gm/dL 10:30 AM CDT [facility] RDW OP 12.4 11.5 - 10/30/2015 [facility] 14.5 % 10:30 AM T [facility] PLATELET COUNT 202 150 - 400 10/30/2015 [facility] OP K/uL 10:30 AM CDT [facility] MPV OP 9.9 6.5 - 12.0 10/30/2015 [facility] 10:30 AM T [facility] Specimen Anatomical Collection Method / Collection Time Recei philipp Time (Source) Location / Volume Laterality Blood VENOUS BLOOD Venipuncture / 10/30/2015 10:20 201 6 SPECIMEN / Unknown Unknown AM CDT 10:20 AM CDT Jacques Alcantara MD HEMATOLOGY ORDERABLE Performing Organization Address City/State/ZIP Code Phon e Number [facility] [address] [facility] [address] [facility] - [facility] [place] [address] [facility] documented in this encounter Visit Diagnoses Diagnosis Preop cardiovascular exam - Primary Pre-operative cardiovascular examination Elevated fasting blood sugar Impaired fasting glucose Snores Other dyspnea and respiratory abnormalit y Bipolar affective disorder in remission (HCC) Tobacco abuse Tobacco use disorder History of lumbar fusion documented in this encounter Care Teams Manager Diversity Relationship Specialty Start Date End Date Jacques Alcantara MD PCP - General Family Medicine 12/15/12 [facility], PCP - Primary Care Clinic 3 09/16/17 Lashell Cheema [facility]y documented as of this encounter
--- OUTSIDE RECORDS SUMMARY | 2022-02-11 11:13 | XMS_ITS | Encounter Summary ---
:1975 Author Organization [facility] Address [address] [place] [address] Care Team Providers Name Role Phone Jacques Alcantara MD Primary Care Provider Unavailable [facility] Unavailable Unavailable Reason for Visit Reason Comments Toenail Ingrown, great toes and 2nd toes bilaterally; painful Consultation - Internal (Routine) - Auth-No PA/Ref Req Specialty Diagnoses / Procedures Referred By Contact Refer red To Contact Diagnoses IGTN (ingrowing toe nail) Jacques Alcantara MD [facility] [address] [address] [address] [place] [address] Phone: Referral ID Status Reason Start Expiration Visits Visits Date Date Requested Authorized [id number] Auth-No Specialty 04/16/2016 1 1 PA/Ref Req Services Required Encounter Details Date Type Department Care Team Description 04/22/2016 Office Visit [facility] Vivian Chapa E, DPM Pain in toes of both feet (Primary Dx); Clinic - [address] Joao montoya; [address] Frank [address] Macronychia; [address] [place], [place] Tinea unguium [place], [place] [address] [phone] (Wo rk) Social History Tobacco Use Types [...] Comments Blood Pressure 118/74 04/22/2016 11:37 AM ENGINEERING DESIGNER Pulse 76 04/22/2016 11:37 AM ENGINEERING DESIGNER Temperature 36.5 ??C (97.7 ??F) 04/22/2016 11:37 AM ENGINEERING DESIGNER Respiratory Rate - - Oxygen Saturation - [...] requesting have the procedure done specifically at [facility]. I did tell her that I would have availability to do this in minutes on,, 2 weeks from tomorrow though I can refer her to one of my partners that can do the procedure in the operating room and [facility]. She will follow up with Dr. Armendariz tomorrow to schedule the procedure. He feels it is indicated. Robert Chapa DPM, [facility] Podiatry [facility] This document was created using voice recognition software and effort was taken in order to review for accuracy, though some inadvertent typographical errors may be present. NEERING DESIGNER documented in this encounter Plan of Treatment Scheduled Referrals Name Type Priority Associated Diagnoses Order [facility] REFERR[facility] PODIATRY Follow Up Routine IGTN (ingrowing toe surjit l) Ordered: 04/16/2016 documented as of this encounter Visit Diagnoses Diagnosis Pain in toes of both feet - Primary Ingrowing nail Macronychia Other specified disease of nail Tinea unguium Dermatophytosis of nail documented in this encounter Care Teams Systems Test Analyst Relationship Specialty Start Date End Date Jacques Alcantara MD PCP - General Family Medicine 12/15/12 [facility] PCP - Primary Care Clinic 3 09/16/17 [facility] documented as of this encounter
--- OUTSIDE RECORDS SUMMARY | 2022-02-11 11:13 | XMS_ITS | Encounter Summary ---
:1975 Author Organization [facility] Address [address] [place] [address] Care Team Providers Name Role Phone Jacques Alcantara MD Primary Care Provider Unavailable [facility] Unavailable Unavailable Reason for Visit Reason Comments Back pain Low Encounter Details Date Type Department Care Team Description 01/02/2016 Hospital Encounter [facility] Milena Mason Pain Cora, ZOFIA,LOOP DRIER OPERATOR Management [facility] [address] [place] [address] [address] [place] [address] [phone] (Wo rk) Social History Tobacco Use Types [...] encounter Discharge Instructions Patient InstructionsPatti Mason APRN, PLASTIC CABLEMAKING MACHINE OPERATOR - 01/02/2016 10:11 AM CDT 1. Refill [...] MIST) 0.65 into EACH nare % Nasal [place] every 1 (one) hour SprAIndications: Sinus as needed. headache, Dizziness traZODone (DESYREL) 100 Take 300 mg by 0 08/27/2016 mg Oral Tab mouth at bedtime. triamterene-hydrochloroth 6 05/16/2015 08/27/2016 iazide 37.5 MG-25 MG (DYAZIDE) 37.5-25 mg oral Cap documented as of this encounter Progress Notes Patti Mason APRN, CNP - 01/02/2016 9:58 AM CDT [facility] RETURN EVALUATION Patient Name: Maria Del Rosario Servin Address: [address] [place] [address] CHIEF COMPLAINT Low back and hip pain [...] 0.65% (SALINE NASAL MIST) 0.65 % Nasal [place] SprA topiramate (TOPAMAX) 25 mg Oral Tab [...] 7. RTC 3 months. Patti Mason APRN, PLASTIC CABLEMAKING MACHINE OPERATOR documented in this encounter Plan of Treatment Not on filedocumented as of this encounter Visit Diagnoses Diagnosis Spondylolisthesis of lumbar region - Ana mcgregor Acquired spondylolisthesis documented in this encounter Care Teams Rug Renovator Relationship Specialty Start Date End Date Jacques Alcantara MD PCP - General Family Medicine 12/15/12 [facility], PCP - Primary Care Clinic 3 09/16/17 [facility] documented as of this encounter
--- OUTSIDE RECORDS SUMMARY | 2022-02-11 11:13 | XMS_ITS | Encounter Summary ---
:1975 Author Organization [facility] Address [address] [place] [address] Care Team Providers Name Role Phone Jacques Alcantara MD Primary Care Provider Unavailable [facility] Unavailable Unavailable Reason for Visit Reason Comments Toenail Ingrown toenails, great toes and 2nd toes, bilaterally Encounter Details Date Type Department Care Team Description 04/23/2016 Office Visit [facility] Luis Armendariz, In growing nail (Primary Dx); Clinic - [place] DPM Pain in toes of both feet; [address] Barrientos; [place], [place] [address] [address] Tinea unguium [phone] [place], [place] [address] (Wo rk) Social History Tobacco Use Types [...] Comments Blood Pressure 134/88 04/23/2016 8:40 AM BANANA RIPENING ROOM SUPERVISOR Pulse 88 04/23/2016 8:40 AM BANANA RIPENING ROOM SUPERVISOR Temperature 37.1 ??C (98.7 ??F) 04/23/2016 8:40 AM BANANA RIPENING ROOM SUPERVISOR Respiratory Rate - - Oxygen Saturation - [...] would like to have it done at [place]. She has no other concerns or questions [...] requesting have the procedure done specifically at [facility]. As patient would like to wait until [...] to their next appointment. Luis Armendariz DPM [facility] Podiatry Service 04/23/2016 9:04 AM This document was created using voice recognition software and effort was taken in order to review for accuracy, though some inadvertent typographical errors may be present. NA RIPENING ROOM SUPERVISOR documented in this encounter Plan of Treatment Not on filedocumented as of this encounter Visit Diagnoses Diagnosis Ingrowing nail - Primary Pain in toes of both feet Macronychia Other specified disease of nail Tinea unguium Dermatophytosis of nail documented in this encounter Care Teams Marine Engineering Teacher Relationship Specialty Start Date End Date Jacques Alcantara MD PCP - General Family Medicine 12/15/12 [facility], [place], PCP - Primary Care Clinic 3 09/16/17 [facility] documented as of this encounter
--- OUTSIDE RECORDS SUMMARY | 2022-02-11 11:13 | XMS_ITS | Encounter Summary ---
:1975 Author Organization [facility] Address [address] [place] [address] Care Team Providers Name Role Phone Jacques Alcantara MD Primary Care Provider Unavailable [facility] Unavailable Unavailable Reason for Referral Consultation (Routine) - Auth-No PA/Ref Req Specialty Diagnoses / Procedures Referred By Contact Refer red To Contact Psychiatry Diagnoses Bipolar affective disorder in remission (HCC) Jacques Alcantara MD [facility] [address] [place] [address] [address] [place] [address] Phone: Referral ID Status Reason Start Expiration Visits Visits Date Date Requested Authorized [id number] Auth-No Specialty 08/27/2016 1 1 PA/Ref Req Services Required Comments Bipolar on multiple medications. (Routine) - Closed Specialty Diagnoses / Procedures Referred By Contact Refer red To Contact Diagnoses Routine screening for STI (sexually transmitted infection) Jacques Alcantara MD Procedures SYPHILIS ANTIBODY SCREEN, SERUM [address] [place] [address] Referral ID Status Reason Start Date Expiration Date Visits Requ ested Visits Authorized [id number] Closed 08/27/2016 08/27/2017 1 1 (Routine) - Closed Specialty Diagnoses / Procedures Referred By Contact Refer red To Contact Diagnoses Routine screening for STI (sexually transmitted infection) Jacques Alcantara MD Procedures HIV 1 AND 2 ANTIGEN AND ANTIBODY SCREEN [address] [place] [address] Referral ID Status Reason Start Date Expiration Date Visits Requ ested Visits Authorized [id number] Closed 08/27/2016 08/27/2017 1 1 (Routine) - Closed Specialty Diagnoses / Procedures Referred By Contact Refer red To Contact Diagnoses Routine screening for STI (sexually transmitted infection) Jacques Alcantara MD Procedures CHLAMYDIA/NEISSERIA PCR-URINE [address] [place] [address] Referral ID Status Reason Start Date Expiration Date Visits Requ ested Visits Authorized [id number] Closed 08/27/2016 08/27/2017 1 1 (Routine) - Closed Specialty Diagnoses / Procedures Referred By Contact Refer red To Contact Diagnoses Pap smear for cervical cancer screening Jacques Alcantara MD Procedures HPV HIGH RISK DNA WITH 16/[address] [place] [address] Referral ID Status Reason Start Date Expiration Date Visits Requ ested Visits Authorized [id number] Closed 08/27/2016 08/27/2017 1 1 (Routine) - Closed Specialty Diagnoses / Procedures Referred By Contact Refer red To Contact Diagnoses Screening, ischemic heart disease Jacques Alcantara MD Procedures LIPID PROFILE CASCADE [id number] [place] [address] Referral ID Status Reason Start Date Expiration Date Visits Requ ested Visits Authorized [id number] Closed 08/27/2016 08/27/2017 1 1 Reason for Visit Reason Comments Physical Lab draw fasting Question wants to know if she should get a colonscopy since her maternal grandmother had colon cancer , dx'd with colon ca at 70. Referral request to a new psychiatrist Smoking cessation looking at chantix Encounter Details Date Type Department Care Team Description 08/27/2016 Office Visit [facility] Jacques Alcantara, An nual physical exam (Primary Dx); Clinic - [place] Vitamin D deficiency; [address] [facility] Bronchosp asm; [place]. Migraine without status migr ainosus, not intractable, unspecified migraine type; [place] [address] Bipolar affective disorder i n remission ([facility]); [phone] Elevated fastin g blood sugar; Screening, isch [...] Lives with family Does not Work on [employer] Last Tdap 2013 Flu Shot annually Current [...] Adult,Disposable (DEPEND UNDERWEAR L-XL) 1 Each by [facility].(Non- Drug; Combo Route) route [...] 0.65% (SALINE NASAL MIST) 0.65 % Nasal [place] SprA Instill 1- 2 Sprays into EACH [...] No alterations in thinking, paresthesias, or weakness TECHNICAL AGRONOMIST ROS: Hysterectomy however has ovaries and states [...] cervical cancer screening - Plan: PAP TEST (TECHNICAL AGRONOMIST CYTOLOGY), HPV HIGH RISK DNA WITH 16/18 [...] refill all of her medications today andtake atqq-vju-mzofsna care. She is on controlled substances Adderall [...] patient and/or guardian. Maria Del Rosario A [place] and/or guardian engaged in the decision making [...] in GENOTYPING screening the results section. PAP (TECHNICAL AGRONOMIST CYTOLOGY) Routine 08/27/2016 9:48 AM Pap smear for Re sults for this CDT cervical cancer procedure ar e in screening the results section. documented in this encounter Results WET PREP EXAM OP (08/27/2016 10:58 AM CDT) [facility] Method Time Signature CLUE CELLS OP None Seen None Seen 08/27/2016 [place] 11:01 AM CDT [facility] FP YEAST OP None Seen None Seen 08/27/2016 [place] 11:01 AM CDT [facility] FP TRICHOMONAS OP None Seen None Seen 08/27/2016 [place] 11:01 AM CDT [facility] FP WET PREP WBC OP None Seen None Seen 08/27/2016 [place] 11:01 AM CDT [facility] Specimen Anatomical Collection Method Collection Time Receive d Time (Source) Location / / Volume Laterality Specimen 08/27/2016 10:58 08/27/2016 (specimen) AM CDT 10:58 AM CDT Jacques Alcantara MD URINE ORDERABLE Performing Organization Address City/[facility]/ZIP Code Phon e Number [address] [address] [facility] SYPHILIS ANTIBODY SCREEN, SERUM (08/27/2016 9:50 AM CDT) [facility] Method Time Signature SYPHILIS Nonreactive Nonreactive 08/27/2016 [place] ANTIBODY 2:22 PM CDT [facility] Specimen Anatomical Collection Method / Collection Time Recei philipp Time (Source) Location / Volume Laterality Blood Venipuncture / 08/27/2016 9:50 08/27/2016 9:50 Unknown AM CDT AM CDT Jacques Alcantara MD CHEMISTRY ORDERABLE Performing Organization Address City/State/ZIP [facility] Phon e Number [address] [address] HIV 1 AND 2 ANTIGEN AND ANTIBODY SCREEN (08/27/2016 9:50 AM CDT) [facility] [employer] Method Time Signature HIV 1/2 Ag/Ab Non-Reacti Non-Reacti 08/27/2016 [facility] Screen ve ve 2:51 PM CDT LABORATORY Specimen Anatomical Collection Method / Collection Time Recei philipp Time (Source) Location / Volume Laterality Blood Venipuncture / 08/27/2016 9:50 08/27/2016 9:50 Unknown AM CDT AM CDT Narrative [facility] - 08/27/2016 2 :51 PM CDT A Non-Reactive test result does not excl ude the possibility of exposure to or infection with HIV. ??HIV antibodies may be undetectable in some stages of the infec tion and in some clinical conditions. Jacques Alcantara MD IMMUNOLOGY ORDERABLE Performing Organization Address City/[facility]/ZIP Code Phon e Number [place] [phone] [place] [address] [place] [address] CHLAMYDIA/NEISSERIA PCR-URINE (08/27/2016 9:50 AM CDT) [facility] gist Method Time Signature CHLAM. AMP. Negative for Negative 08/28/2016 [place] the presence of 12:40 PM [facility] Chlamydia T LABORATORY trachomatis DNA by PCR. NEIS. AMP. Negative for Negative 08/28/2016 [place] the presence of 12:40 PM [facility] Neisseria T LABORATORY gonorrhoeae DNA by PCR. Specimen Anatomical Collection Method Collection Time Receive d Time (Source) Location / / Volume Laterality Urine 08/27/2016 9:50 AM 7 9:50 CDT AM CDT Jacques Alcantara MD MICROBIOLOGY ORDERABLE Performing Organization Address City/State/ZIP Code Phon e Number [place] [address] [facility] [place] [address] [place] [address] HGB A1C (GLYCO HGB) OP (08/27/2016 9:50 AM CDT) P athologist Signature HGBA1C OP 5.5 <=5.6 % 08/27/2016 [facility] 10:05 AM CDT [facility] FP EST AVERAGE 111 <=114 08/27/2016 [facility] GLUCOSE OP mg/dL 10:05 AM CDT [facility] Specimen Anatomical Collection Method / Collection Time Recei philipp Time (Source) Location / Volume Laterality Blood Venipuncture / 08/27/2016 9:50 08/27/2016 9:50 Unknown AM CDT AM CDT Jacques Alcantara MD CHEMISTRY ORDERABLE Performing Organization Address City/State/ZIP Code Phon e Number [facility] [address] [facility] [place] [address] - [facility] [address] [facility], [place] [address] [facility] FP (ABNORMAL) LIPID PROFILE CASCADE (08/27/2016 9:50 AM CDT) [facility] Method Time Signature SPECIMEN TYPE Fasting 08/27/2016 [facility] 1:28 PM CDT LABORATORY CHOLESTEROL 231 (H) <200 08/27/2016 [facility] mg/dL 1:28 PM CDT LABORATORY TRIGLYCERIDES 147 <150 08/27/2016 [facility] PROFILE mg/dL 1:28 PM CDT LABORATORY LDL CHOL, CALC 155 (H) <100 08/27/2016 [facility] mg/dL 1:28 PM CDT LABORATORY HDL CHOLESTEROL 47 >40 mg/dL 08/27/2016 [facility] 1:28 PM CDT LABORATORY CHOL/HDL RATIO 4.9 0.0 - 4.9 08/27/2016 [facility] 1:28 PM CDT LABORATORY Specimen Anatomical Collection Method / Collection Time Recei philipp Time (Source) Location / Volume Laterality Blood Venipuncture / 08/27/2016 9:50 08/27/2016 9:50 Unknown AM CDT AM CDT Narrative [facility] - 08/27/2016 1 :28 PM CDT LDL CHOLESTEROL REFERENCE RANGES: (FOR PATIENTS W/O HEART DISEASE) <100 mg/dL = Optimal 100-129 mg/dL = Near/Above Optimal 130-159 mg/dL = Borderline High 160-189 mg/dL = High >/= 190 mg/dL = Very High Jacques Alcantara MD CHEMISTRY ORDERABLE Performing Organization Address City/State/ZIP Code Phon e Number [facility] [address] [facility] [address] LAB[facility] [address] [facility] [address] HPV HIGH RISK DNA WITH 16/18 GENOTYPING (08/27/2016 9:48 AM CDT) Patholo gist Method Time [facility] HPV HIGH RISK Negative for Negative for 08/29/2016 [place] TYPE 16 HPV type 16. HPV type 16. 1:13 PM CDT [facility] LABORAT[facility] HPV HIGH RISK Negative for Negative for 08/29/2016 [place] TYPE 18 HPV type 18. HPV type 18. 1:13 PM CDT [facility] LABORATORY HPV OTHER Negative for Negative for 08/29/2016 [place] HIGH RISK other high other high 1:13 PM CDT [facility] TYPES risk HPV risk HPV LABORATORY types. [...] Organization Address City/State/ZIP Code Phon e Number [facility] [address] [place] [address] LABORATORY [facility] [address] [place], [place] [address] PAP TEST (TECHNICAL AGRONOMIST CYTOLOGY) (08/27/2016 9:48 AM CDT) Component Value Ref Test Analysis Performed [facility] Method Time At [facility] Case Report Pap Smear ? Case: [id number] ? 09/05/2016 [place] Authorizing Provider: ??Jacques Butcher MD ? Collected: ? 08/27/2016 09:48 AM ? 11:49 AM [facility] Ordering Location: ? [facility] - ?Received: ?08/27/2016 09:48 AM ? CDT LABORAT [place] ? [place] ? First Screen: ? Gavin Smith. ? Specimen: ?Cervical Thin Prep with HPV Test Hotel Staff Member Screening, Cervix ? Interpretation Negative for 09/05/2016 KIMO Salas lectronically intraepithelial 11:49 AM [facility] sign ed by Gavin reed or CDT LABORATORY Nancy garcia on malignant cells. 08/10 at 11:49 AM Specimen Satisfactory for 09/05/2016 [place] Adequacy evaluation. 11:49 AM [facility] Endocervical/trans CDT LABORATORY formation zone component present. LMP s/p hysterectomy 09/05/2016 [place] 11:49 AM [facility] CDT LABORATORY Pap Disclaimer This specimen was screened b y the ThinPrep Imaging System prior to manual review by a personal fitness manager and/or pathologist. 09/05/2016 [place] 11:49 AM [facility] The Pap test is a screening test [...] Organization Address City/State/ZIP Code Phon e Number [facility] [address] [facility] [place] [address] LABORATORY [facility] [address] [place] [address] documented in this encounter Visit [...] cervix documented in this encounter Care Teams Cornice Maker Relationship Specialty Start Date End Date Jacques Alcantara MD PCP - General Family Medicine 12/15/12 [facility], PCP - Primary Care Clinic 3 [facility]17 [facility] as of this encounter
--- OUTSIDE RECORDS SUMMARY | 2022-02-11 11:13 | XMS_ITS | Encounter Summary ---
:1975 Author Organization [facility] Address [address] [place] [address] Care Team Providers Name Role Phone Jacques Alcantara MD Primary Care Provider Unavailable [facility] Unavailable Unavailable Reason for Visit Reason Comments Post op check itchy and red nailbeds follo wing removal Encounter Details Date Type Department Care Team Description 07/16/2016 Office Visit [facility] Luis Armendariz To e infection (Primary Dx); Clinic - [place] DPM Pain in toes of both feet; [address] Post op infection [place], [place] [address] [phone] [place], [place] [address] (Wo rk) Social History Tobacco Use Types [...] Comments Blood Pressure 110/68 07/16/2016 10:22 AM NATIONAL VAN OWNER OPERATOR Pulse 72 07/16/2016 10:22 AM NATIONAL VAN OWNER OPERATOR Temperature 36.4 ??C (97.6 ??F) 07/16/2016 10:22 AM NATIONAL VAN OWNER OPERATOR Respiratory Rate 20 07/16/2016 10:22 AM NATIONAL VAN OWNER OPERATOR Oxygen Saturation - - Inhaled Oxygen Concentration [...] any questions or concerns. Luis Armendariz DPM [facility] Podiatry Service 07/16/2016 10:52 AM This document was created using voice recognition software and effort was taken in order to review for accuracy, though some inadvertent typographical errors may be present. ONAL VAN OWNER OPERATOR documented in this encounter Plan of Treatment Not on filedocumented as of this encounter Visit Diagnoses Diagnosis Toe infection - Primary Unspecified local infection of skin and subcutaneous tissue Pain in toes of both feet Post op infection Other postoperative infection documented in this encounter Care Teams Meat Stuffer Relationship Specialty Start Date End Date Jacques Alcantara MD PCP - General Family Medicine 12/15/12 [facility] [place], PCP - Primary Care Clinic 3 09/16/17 [facility] documented as of this encounter
--- OUTSIDE RECORDS SUMMARY | 2022-02-11 11:13 | XMS_ITS | Encounter Summary ---
:1975 Author Organization [facility] Address [address] [place] [address] Care Team Providers Name Role Phone Jacques Alcantara MD Primary Care Provider Unavailable [facility] Unavailable Unavailable Reason for Referral Consultation - Internal (Routine) - Closed Specialty Diagnoses / Procedures Referred By Contact Refer red To Contact Diagnoses Bilateral low back pain, with sciatica presence unspecified Patti Mason DNP,MASTER CERTIFIED RV TECHNICIAN [address] [place] [address] Referral ID Status Reason Start Date Expiration Date Visits V isits Requested Authorized [id number] Closed Specialty 10/01/2015 03/29/2016 [address] William Thayer, Behavioral Health [address] [place] [address], [address], [place] [address] Scheduling Line: [phone] Referral to behavioral health/pain psych ologist, Dr. [...] Department Care Team Description 10/01/2015 Hospital Encounter [facility] Milena Mason DNP,MASTER CERTIFIED RV TECHNICIAN [facility] [address] [facility] [address] [facility] [place] [address] [place] [address] [phone] (Wo rk) Social History Tobacco Use Types [...] fusion surgery Dr. William Thayer, Behavioral Health [address] [place] [address], [address], [place] [address] Scheduling Line: [phone] Referral to behavioral health/pain psychologist, Dr. William [...] by mouth 90 Tab 3 01/25/2015 08/12/2015 &[id number] Once Daily. 407-125-38-0.5 mg Oral TabIndications: Bilateral low back pain with left-sided sciatica ibuprofen (MOTRIN) 800 mg Take 1 Tab by mouth 120 Tab 2 1 06/17/2014 09/17/2017 Oral Tab every 8 (eight) hours as needed. sodium chloride 0.65% Instill 1-2 Sprays 1 Bottle 11 201412/02/2017 (SALINE NASAL MIST) 0.65 into EACH nare every % Nasal Purdin 1 (one) hour as SprAIndications: Sinus needed. [...] this encounter Progress Notes Patti Mason APRN, EAR NOSE AND THROAT SPECIALIST - 10/01/2015 10:25 AM CDT [facility] RETURN EVALUATION Patient Name: Maria Del Rosario Servin Address: [address] [place] [address] CHIEF COMPLAINT Low back and hip pain [...] Patient reports that her sister is her MUFFLE OPERATOR and has been assisting in taking care of her post-operatively. Patient states that she does see a behavioral health specialist about 2 times per month however has not seen this provider since before her last visit with [facility]. Patient states that she is using ice [...] gabapentin (NEURONTIN) 300 mg Oral Cap Glucosamine &[id number] 323-606-89-0.5 mg Oral Tab ibuprofen (MOTRIN) 800 mg Oral Tab methocarbamol (ROBAXIN) 500 mg oral Tab methocarbamol (ROBAXIN) 500 mg Oral Tab omeprazole (PRILOSEC) 20 mg Oral CpDR rOPINIRole (REQUIP) 3 mg Oral Tab sodium chloride 0.65% (SALINE NASAL MIST) 0.65 % Nasal [place] SprA topiramate (TOPAMAX) 25 mg Oral Tab [...] revision spinal fusion surgery. Patti Mason APRN, EAR NOSE AND THROAT SPECIALIST documented in this encounter Plan of Treatment Scheduled Referrals Name Type Priority Associated Diagnoses Order S chedule Psych Referral Routine Bilateral low back pain, wit h sciatica Ordered: 10/01/2015 presence unspecified documented as of this encounter Visit Diagnoses Diagnosis Bilateral low back pain, with sciatica p resence unspecified - Primary documented in this encounter Care Teams Boat Outfitter Relationship Specialty Start Date End Date Jacques Alcantara MD PCP - General Family Medicine 8/7/13 5/9/ 18 [facility] [place], PCP - Primary Care Clinic 3 09/16/17 [facility] Naina documented as of this encounter
--- OUTSIDE RECORDS SUMMARY | 2022-02-11 11:13 | XMS_ITS | Encounter Summary ---
:[address] [facility] Address [address] [place] [address] Care Team Providers Name Role Phone Jacques Alcantara MD Primary Care Provider Unavailable [facility] Unavailable Unavailable Reason for Referral (Routine) - Closed Specialty Diagnoses / Procedures Referred By Contact Refer red To Contact Procedures Luis Armendariz DPM Diet: Regular [address] [facility] [address] [place] [address] 9 Referral ID Status Reason Start Date Expiration Date Visits Requ ested Visits Authorized [id number] Closed 06/10/2016 12/07/2016 1 1 STANT WOMEN'S BASKETBALL COACH (Routine) - Closed Specialty Diagnoses / Procedures Referred By Contact Refer red To Contact Procedures Luis Armendariz DPM Dressing Change [address] [place] [address] Dr Marie [facility] [place] [address] 9 Referral ID Status Reason Start Date Expiration Date Visits Requ ested Visits Authorized [id number] Closed 06/10/2016 12/07/2016 1 1 STANT WOMEN'S BASKETBALL COACH (Routine) - Closed Specialty Diagnoses / Procedures Referred By Contact Refer red To Contact Procedures Luis Armendariz DPM Discharge Instructions [address] [place] [address] Dr [place] [address] 9 Referral ID Status Reason Start Date Expiration Date Visits Requ ested Visits Authorized [id number] Closed 06/10/2016 12/07/2016 1 1 STANT WOMEN'S BASKETBALL COACH (Routine) - Closed Specialty Diagnoses / Procedures Referred By Contact Refer red To Contact Procedures Luis Armendariz DPM Activity as tolerated [address] [place] [address] Dr Katie sultana [address] [place], [place] [address] 9 Referral ID Status Reason Start Date Expiration Date Visits Requ ested Visits Authorized [id number] Closed 06/10/2016 12/07/2016 1 1 STANT WOMEN'S BASKETBALL COACH (Routine) - Closed Specialty Diagnoses / Procedures Referred By Contact Refer red To Contact Luis Armendariz DPM Canter, Keith A, DPM [address] [place] [address] Dr Marie [address] [place] [address] Dr Marie [facility] [place], [place] [address] [place] [address] Fax: Referral ID Status Reason Start Date Expiration Date Visits Requ ested Visits Authorized [id number] Closed 06/10/2016 12/07/2016 1 1 Question Answer Follow Up Instructions Please follow up with Dr. Sylwia antunez on ThursdayJun.18 at 9:50AM at the [facility] location. Please call [phone] with any q uestions or concerns prior to that appointment. Specify time frame for follow up? 1 Week STANT WOMEN'S BASKETBALL COACH (Routine) - Closed Specialty Diagnoses / Procedures Referred By Contact Refer red To Contact Procedures Luis Armendariz DPM Discharge [address] [place] [address] Dr Marie [facility] [place] [address] 9 Referral ID Status Reason Start Date Expiration Date Visits Requ ested Visits Authorized [id number] Closed 06/10/2016 12/07/2016 1 1 STANT WOMEN'S BASKETBALL COACH Reason for Visit Inpatient Admission Specialty Diagnoses / Procedures Referred By Contact Refer red To Contact Procedures [phone] Referral ID Status Reason Start Date Expiration Date Visits Requ ested Visits Authorized [id number] 1 1 Encounter Details Date Type Department Care Team Description 06/10/[address] [facility] KalaLuis DPM [facility] Patient Care [address] [facility] [address] [place] [address] [place] [phone] (Wo rk) Social History Tobacco Use Types [...] Comments Blood Pressure 119/74 06/10/2016 9:22 AM ASSISTANT WOMEN'S BASKETBALL COACH Pulse 61 06/10/2016 9:22 AM ASSISTANT WOMEN'S BASKETBALL COACH Temperature 36.4 ??C (97.6 ??F) 06/10/2016 8:27 AM ASSISTANT WOMEN'S BASKETBALL COACH Respiratory Rate 16 06/10/2016 8:27 AM ASSISTANT WOMEN'S BASKETBALL COACH Oxygen Saturation 97% 06/10/2016 8:50 AM ASSISTANT WOMEN'S BASKETBALL COACH Inhaled Oxygen Concentration - - Weight 99.3 kg (219 lb) 06/10/2016 6:10 AM ASSISTANT WOMEN'S BASKETBALL COACH Height 154.9 cm (5' 1) 06/09/2016 11:04 AM ASSISTANT WOMEN'S BASKETBALL COACH Body Mass Index 41.38 06/09/2016 11:04 AM ASSISTANT WOMEN'S BASKETBALL COACH documented in this encounter Discharge Instructions Discharge [...] symptoms are severe or life threatening * STANT WOMEN'S BASKETBALL COACH documented in this encounter Medications at Time [...] MIST) 0.65 into EACH nare % Nasal [place] every 1 (one) hour SprAIndications: Sinus as [...] and 2nd toenails, bilateral Luis Armendariz DPM [facility] Podiatry Service STANT WOMEN'S BASKETBALL COACH Darrel Vásquez MD - 06/10/2016 6:57 AM CST History and Physical Update I have reviewed the patient's History and Physical and have examined the patient in the pre-op area.The patient denies any interval changes in medical condition since the H&P . Darrel Vásquez MD 06/10/2016 6:57 AM STANT WOMEN'S BASKETBALL COACH documented in this encounter Nursing Notes Erika Bucio, TEREZA - 06/10/2016 9:37 AM CST Discharged by volunteer/NA per wheelchair. Family / Patient received and understands instructions, all questions addressed, belongings returned, and prescriptions received. Contact patient at home for post-procedure call. Okay to leave a message. STANT WOMEN'S BASKETBALL COACH documented in this encounter OR Notes OR Surgeon - Luis Armendariz DPM - 06/10/2016 9:37 AM CST This procedure note has been dictated: # [id number] Luis Armendariz DPM [facility] Podiatry Service [phone] STANT WOMEN'S BASKETBALL COACH OR Surgeon - Luis Armendariz DPM - [...] the right hallux and second digit. A Empire elevator was used to free up the [...] appointment. Luis Armendariz DPM /CD Dictation ID: [id number] STANT WOMEN'S BASKETBALL COACH OR Surgeon - Luis Armendariz DPM - 06/10/2016 8:29 AM CST POST-OPERATIVE NOTE PREOPERATIVE DIAGNOSIS DX: BILATERAL INGROWN/DYSTROPHIC PAINFUL HALLUX AND SECOND TOENAILS POSTOPERATIVE DIAGNOSIS same Procedure(s): MATRIXECTOMY OF LEFT HALLUX AND SECOND TOENAIL MATRIXECTOMY OF RIGHT HALLUX AND SECOND TOENAIL Surgeon(s): Luis Armendariz DPM Canter, Keith A., DPM Community Relations Officer(s): None Other surgical staff (if any): Circulating nurse: Yury Rainey RN; Rosey Molina RN electrical/instrument technician: Dena Browne; Samantha Simms Anesthesia MAC EBL: 2 ml Specimen Removed: None Complications: none Findings/Conclusions: Dystrophic and thickened toenails Condition on discharge from OR: Satisfactory REPORT OF OPERATION/ PROCEDURE See dictated note. Luis Armendariz DPM [facility] Podiatry Service STANT WOMEN'S BASKETBALL COACH documented in this encounter Plan of Treatment Scheduled Referrals Name Type Priority Associated Diagnoses Order S chedule Follow Up Follow Up Routine Ordered: 2016 documented as of this encounter Procedures Procedure Name Priority Date/Time Associated Diagnosis Comme nts EXCISION TOENAIL 06/10/2016 7:27 AM DX: BILATERAL ASSISTANT WOMEN'S BASKETBALL COACH INGROWN/DYSTROPHIC PAINFUL HALLUX AND SECOND TOENAILS EXCISION TOENAIL 06/10/2016 7:27 AM DX: BILATERAL ASSISTANT WOMEN'S BASKETBALL COACH INGROWN/DYSTROPHIC PAINFUL HALLUX AND SECOND TOENAILS POTASSIUM STAT 06/10/2016 6:23 AM Results f or this ASSISTANT WOMEN'S BASKETBALL COACH procedure are i n the results section. documented in this encounter Results Potassium, Serum (06/10/2016 6:23 AM ASSISTANT WOMEN'S BASKETBALL COACH) P athologist Signature POTASSIUM 3.8 3.5 - 5.1 06/10/2016 [facility] mMol/L 7:14 AM ASSISTANT WOMEN'S BASKETBALL COACH LABORATORY Specimen Anatomical Collection Method Collection Time Receive d Time (Source) Location / / Volume Laterality Blood PERIPHERAL BLOOD 06/10/2016 6:23 AM 06/10 6:49 SPECIMEN / Unknown ASSISTANT WOMEN'S BASKETBALL COACH AM ASSISTANT WOMEN'S BASKETBALL COACH Lexy Aguayo MD CHEMISTRY ORDERABLE Performing Organization Address City/State/ZIP Code Phon e Number [address] [place] [address] [place] [address] documented in [...] syringe 5 mL Given 06/10/2016 6:27 AM ASSISTANT WOMEN'S BASKETBALL COACH 5 mL 5 mL, Intravenous, NEEDED, Starting [...] for pain control per recommendation of the [place] in Society, [place] for Safe Medication Practices (ISMP) and the [facility]. metoclopramide HCl (REGLAN) injection 10 [...] Recently Administered Medications Times are shown in ASSISTANT WOMEN'S BASKETBALL COACH. Scheduled Medication Order 06/08/2016 06/09/2016 06/10/2016 saline FLUSH syringe 5 mL 0615 (Due) 5 mL, Intravenous, EVERY 8 HOURS, First dose on Thu06/10/16 at 0615, Until Discontinued ceFAZolin (ANCEF) IV syringe (OP) (COMPLETED) 0733 (Given - Provider: Aydee Mary APRN, SUPPORT COORDINATOR) Intravenous, ONCE ON INDUCTION, 1 dose, Starting [...] recommendation of the [place] Pain Society, [place] for Safe Medication Practices (ISMP) and the [facility] [place] [facility]. metoclopramide HCl (REGLAN) injection 10 [...] 0810 (Given - Provider: Aydee Mary APRN, SUPPORT COORDINATOR) 1 dose, Starting on Thu06/10/16 at 0638, Until Thu06/10/16 at 06 38 documented in this encounter Care Teams Consultants Intern Relationship Specialty Start Date End Date Jacques Alcantara MD PCP - General Family Medicine 12/15/12 [facility], PCP - Primary Care Clinic 3 09/16/17 [facility] documented as of this encounter
--- OUTSIDE RECORDS SUMMARY | 2022-02-11 11:13 | XMS_ITS | Encounter Summary ---
:1975 Author Organization [facility] Address [address] [place] [address] Care Team Providers Name Role Phone Jacques Alcantara MD Primary Care Provider Unavailable [facility] Unavailable Unavailable Reason for Visit Reason Comments Consultation Discuss surgery for ingrown toenails Encounter Details Date Type Department Care Team Description 06/04/2016 Office Visit [facility] Kala Luis Veliz, In growing nail (Primary Dx); Clinic - Dhaval DPM Pain in toes of both feet; [address] Barrientos; [place] [address] [address] Tinea unguium [phone] [place] [address] (Wo rk) Social History Tobacco Use Types [...] Comments Blood Pressure 100/72 06/04/2016 9:14 AM EXECUTIVE CHAIRMAN OF THE BOARD Pulse 72 06/04/2016 9:14 AM EXECUTIVE CHAIRMAN OF THE BOARD Temperature 36.8 ??C (98.2 ??F) 06/04/2016 9:14 AM EXECUTIVE CHAIRMAN OF THE BOARD Respiratory Rate - - Oxygen Saturation - [...] have the procedure done specifically at [facility]. All risks and complications inherent to surgery were discussed with the patient and she agreed to proceed with surgical removal of bilateral hallux toenails and second toenails with phenol application for permanent removal. Patient was scheduled for June 10 at 7:[address] [facility] operating room. She was given information this date regarding her surgery time and was instructed that she will have to obtain a preoperative history and physical prior to next Thursday. She was instructed to contact the clinic with any questions or concerns prior to next Thursday. Patient will follow-up one week after her procedure for evaluation. Luis Armendariz DPM [facility] Podiatry Service 06/04/2016 9:35 AM This document was created using voice recognition software and effort was taken in order to review for accuracy, though some inadvertent typographical errors may be present. UTIVE CHAIRMAN OF THE BOARD documented in this encounter Plan of Treatment Not on filedocumented as of this encounter Visit Diagnoses Diagnosis Ingrowing nail - Primary Pain in toes of both feet Macronychia Other specified disease of nail Tinea unguium Dermatophytosis of nail documented in this encounter Care Teams Assembler Surgical Garment Relationship Specialty Start Date End Date Jacques Alcantara MD PCP - General Family Medicine 12/15/12 [facility], PCP - Primary Care Clinic 3 09/16/17 [facility] documented as of this encounter
--- OUTSIDE RECORDS SUMMARY | 2022-02-11 11:13 | XMS_ITS | Encounter Summary ---
:[address] [facility] Address [address] [place] [address] Care Team Providers Name Role Phone Jacques Alcantara MD Primary Care Provider Unavailable [facility] Unavailable Unavailable Reason for Visit Reason Comments Back pain lianet Leg pain Rt Encounter Details Date Type Department Care Team Description 06/15/[address] [facility] Milena Mason Pain Cora, ZOFIA,ETL MANAGER Management [facility] [address] [facility] [address] [place] [address] 2 [place] [address] [phone] (Wo rk) Social History Tobacco Use Types [...] Comments Blood Pressure 134/69 06/15/2015 11:03 AM HIP HOP DANCER Pulse 91 06/15/2015 11:03 AM HIP HOP DANCER Temperature - - Respiratory Rate - - Oxygen Saturation 98% 06/15/2015 11:03 AM HIP HOP DANCER Inhaled Oxygen Concentration - - Weight - - Height - - Body Mass Index - - documented in this encounter Discharge Instructions Patient InstructionsPatti Mason APRN, CLINICAL SCIENCE LIAISON - 06/15/2015 11:15 AM HIP HOP DANCER 1. Awaiting surgical date for her recommended AP L5-S1 fusion 2. Continue Robaxin as previously prescribed. 3. Increase gabapentin to 300mg, two caps TID. #180. Ref 2. 4. RTC after surgery. HOP DANCER documented in this encounter Medications at Time of Discharge Medication Sig Dispensed Refills Start Date End Date dextroamphetamine-amphetam Take by mouth Twice 0 08/27/2016 ine (ADDERALL XR) 10 mg a Day. Oral 24hr SR caps Glucosamine Take 1 Tab by mouth 90 Tab 3 01/25/201512/09 &Gtlekqlwh-XQ-Mlz2 Once Daily. 872-542-21-0.5 mg Oral TabIndications: Bilateral low back pain [...] MIST) 0.65 % into EACH nare Nasal [place] every 1 (one) hour SprAIndications: Sinus as [...] Patient Name: Maria Del Rosario Servin Address: [address] [place] [address] CHIEF COMPLAINT Low back pain, hip pain [...] gabapentin (NEURONTIN) 300 mg Oral Cap Glucosamine &Ykjtucujc-QS-Awa7 139-314-62-0.5 mg Oral Tab ibuprofen (MOTRIN) 800 mg Oral Tab methocarbamol (ROBAXIN) 500 mg Oral Tab omeprazole (PRILOSEC) 20 mg Oral CpDR rOPINIRole (REQUIP) 3 mg Oral Tab sodium chloride 0.65% (SALINE NASAL MIST) 0.65 % Nasal [place] SprA topiramate (TOPAMAX) 25 mg Oral Tab [...] Dr. Marks per his 03/14/15 recommendations.?? [facility]?? Would expect Dr. Sorto team to manage her pain in the acute post-op period and then wewill resume. 3. Increased gabapentin 300mg, two caps TID.?? #180.?? Ref 2. 4. Continue Robaxin as previously prescribed. 5. RTC after surgery (2-3 months). Patti Mason APRN, CLINICAL SCIENCE LIAISON HOP DANCER documented in this encounter Plan of Treatment Not on filedocumented as of this encounter Visit Diagnoses Diagnosis Bilateral low back pain, with sciatica p resence unspecified - Primary documented in this encounter Care Teams Photo Mask Pattern Generator Relationship Specialty Start Date End Date Jacques Alcantara MD PCP - General Family Medicine 12/15/12 [facility], PCP - Primary Care Clinic 3 [facility]16[facility]17 [facility] documented as of this encounter
--- OUTSIDE RECORDS SUMMARY | 2022-02-11 11:14 | XMS_ITS | Encounter Summary ---
:1975 Author Organization [facility] Address [address] [place] [address] Care Team Providers Name Role Phone Jacques Alcantara MD Primary Care Provider Unavailable [facility]y Unavailable Unavailable Reason for Referral Consultation (Routine) - Closed Specialty Diagnoses / Procedures Referred By Contact Refer red To Contact Stem Assembler / Podiatry Diagnoses Plantar wart of right foot Jacques Alcantara MD [facility] [address] [place] [address] [place] [address] Phone: Fax: Referral ID Status Reason Start Date Expiration Date Visits V isits Requested Authorized [id number] Closed Specialty 12/06/2013 06/04/2014 1 1 Services Required Comments Right plantar wart - post treatment x4 - previous treatment curettage and hyfrecation. Reason for Visit Reason Comments Warts Follow up Encounter Details Date Type Department Care Team Description 12/06/2013 Office Visit [facility] Jacques Alcantara Pl lianet wart of right Clinic - [facility] foot (Primary Dx) [address] [place] [address] Social History Tobacco Use Types Packs/Day Years [...] InstructionsShirley Sanchez - 12/06/2013 12:22 PM CDT [facility] Podiatry [facility] [address] [facility], [address] [facility] [address] [place] [address] - [place] [address] [place] [address] - [address] - [place] [address] [place], [place] documented in this encounter Progress Notes [...] of right foot - Plan: REFERRAL PODIATRY: [place] [facility] - at this point discussed [...] patient needing retreatment of wart(s). Shirley Sanchez [place] 12:07 PM 12/06/2013 documented in this encounter Plan of Treatment Scheduled Referrals Name Type Priority Associated Diagnoses Order S chedule REFERRAL PODIATRY: [place] Follow Up Routine Plantar wart of rig ht Ordered: 12/06/2013 PODIATRY SERVICE foot documented as of this encounter Visit Diagnoses Diagnosis Plantar wart of right foot - Primary Plantar wart documented in this encounter Care Teams Rod Machine Operator Relationship Specialty Start Date End Date Jacques Alcantara MD PCP - General Family Medicine 12/15/12 [facility], PCP - Primary Care Clinic 3 09/16/17 [facility] documented as of this encounter
--- OUTSIDE RECORDS SUMMARY | 2022-02-11 11:14 | XMS_ITS | Encounter Summary ---
:1975 Author Organization [facility] Address [address] [place] [address] Care Team Providers Name Role Phone Jacques Alcantara MD Primary Care Provider Unavailable [facility] Phy Unavailable Unavailable Reason for Visit Reason Comments Post op check Encounter Details Date Type Department Care Team Description 03/27/2014 Office Visit [facility] Vivian Chapa, DPM Pain in limb (Primary Clinic - [address] Sanchez) [address] [place] [address] 2 [place], [place] [phone] (Wo rk) Social History Tobacco Use Types [...] Comments Blood Pressure 106/82 03/27/2014 10:15 AM CONTRACT ADMINISTRATION MANAGER Pulse 84 03/27/2014 10:15 AM CONTRACT ADMINISTRATION MANAGER Temperature 36.9 ??C (98.4 ??F) 03/27/2014 10:15 AM CONTRACT ADMINISTRATION MANAGER Respiratory Rate - - Oxygen Saturation - - Inhaled Oxygen Concentration - - Weight - - Height - - Body Mass Index - - documented in this encounter Progress Notes Robert Chapa DPM - 03/27/2014 10:38 AM CST SEE DICTATION FOR DETAILS OF EXAMINATION AND PLAN RACT ADMINISTRATION MANAGER Robert Chapa DPM - 03/27/2014 10:36 AM [...] concerns. Robert Chapa DPM /DY Dictation ID: [id number] RACT ADMINISTRATION MANAGER documented in this encounter Plan of Treatment Not on filedocumented as of this encounter Visit Diagnoses Diagnosis Pain in limb - Primary documented in this encounter Care Teams Industrial Spraypainter Relationship Specialty Start Date End Date Jacques Alcantara MD PCP - General Family Medicine 12/15/12 [facility], PCP - Primary Care Clinic 3 09/16/17 [facility] Family Phy documented as of this encounter
--- OUTSIDE RECORDS SUMMARY | 2022-02-11 11:14 | XMS_ITS | Encounter Summary ---
:1975 Author Organization [facility] Address [address] [place] [address] Care Team Providers Name Role Phone Jacques Alcantara MD Primary Care Provider Unavailable [facility] Unavailable Unavailable Encounter Details Date Type Department Care Team Description 02/16/2014 Surgery [facility] Vivian Chapa DPM [facility] [address] OSTEOTOMY [address] [facility] [address] [place], [place] [address] [place], [place] [phone] (Wo lawanda) Surgery Details Date/Time Status Location OR Service Patient Case Class Case Type Trauma Class Case? 02/16/14 7:15 Posted [facility] ORS 10 Podiatry Same [...] live longer. For further assistanceplease call the [employer] Helpline at [phone] or go to their website [email or web address] Contact your Primary Care Physician with any [...] AM CDT Maria Del Rosario Servin 1975 [phone] P: Discharge A: Discharged via wheelchair to [...] of Service: 02/16/2014 SURGEON: Robert Chapa DPM ROUTE RIDER SUPERVISOR: Dandy Ervin DPM PREOPERATIVE DIAGNOSES: 1. Metatarsalgia, [...] instructions. Robert Chapa DPM /DY Dictation ID: [id number] OR Surgeon - Robert Chapa DPM - 02/16/2014 8:09 AM CDT POST OPERATIVE IMMEDIATE PREOPERATIVE DIAGNOSIS DX: METATARSALGIA RIGHT FOOT POSTOPERATIVE DIAGNOSIS same PROCEDURE Procedure(s): RIGHT FOURTH METATARSAL OSTEOTOMY Surgeon(s): Robert Chapa DPM Pleater Hand(s): Dandy Ervin DPM Other surgical staff (if any): Circulating nurse: Renée Buenrostro, RN; Valentina Scott RN radiology technologist: Alecia Bellamy chemical engineering technologist: Shawna Leung; Westley Connolly Anesthesia MAC EBL: [...] information. documented in this encounter Care Teams Sheet Rocker Relationship Specialty Start Date End Date Jacques Alcantara MD PCP - General Family Medicine 12/15/12 [facility], PCP - Primary Care Clinic 3 09/16/17 [facility] documented as of this encounter
--- OUTSIDE RECORDS SUMMARY | 2022-02-11 11:14 | XMS_ITS | Encounter Summary ---
:1975 Author Organization [facility] Address [address] [place] [address] Care Team Providers Name Role Phone Jacques Alcantara MD Primary Care Provider Unavailable [facility] Naina Unavailable Unavailable Reason for Referral Consultation (Routine) - Closed Specialty Diagnoses / Procedures Referred By Contact Refer red To Contact Otolaryngolgy/Facial Diagnoses Dizziness Eustachian tube dysfunction, bilateral Jacques Alcantara MD Head, [facility]ast [address] [place] [address] [address] [place] [address] Phone: Fax: Referral ID Status Reason Start Date Expiration Date Visits V isits Requested Authorized [id number] Closed Specialty 07/28/2014 01/24/2015 1 1 Services Required Comments Pt with worsening dizziness and ETD. Did not respond to Eply man or Meclizine. Reason for Visit Reason Comments Follow up Encounter Details Date Type Department Care Team Description 07/28/2014 Office Visit [facility] Jacques Alcantara Di zziness (Primary Dx); Clinic - [facility] Eustachian tube dysfunction, bilateral [address] [place], [place] [address] Social History Tobacco Use Types Packs/Day Years [...] 0.65% (SALINE NASAL MIST) 0.65 % Nasal [place] SprA Instill 1- 2 Sprays into EACH [...] patient and/or guardian. Maria Del Rosario Keren [place] and/or guardian engaged in the decision making [...] bilateral documented in this encounter Care Teams Jack Spooler Tender Relationship Specialty Start Date End Date Jacques Alcantara MD PCP - General Family Medicine 12/15/12 [facility], PCP - Primary Care Clinic 3 09/16/17 [facility] documented as of this encounter
--- OUTSIDE RECORDS SUMMARY | 2022-02-11 11:14 | XMS_ITS | Encounter Summary ---
:1975 Author Organization [facility] Address [address] [place] [address] Care Team Providers Name Role Phone Jacques Alcantara MD Primary Care Provider Unavailable [facility] Unavailable Unavailable Reason for Referral (Routine) - Auth-No PA/Ref Req Specialty Diagnoses / Procedures Referred By Contact Refer red To Contact Diagnoses Bilateral low back pain, with sciatica presence unspecified Zeb Mckeon DO Procedures MRI SPINE LUMBAR W/O CONTRAST Referral ID Status Reason Start Date Expiration Date Visits V isits Requested Authorized [id number] Auth-No 12/26/2014 1 1 PA/Ref Req Reason for Visit (Routine) - Auth-No PA/Ref Req Specialty Diagnoses / Procedures Referred By Contact Refer red To Contact Diagnoses Bilateral low back pain, with sciatica presence unspecified Zeb Mckeon DO Procedures MRI SPINE LUMBAR W/O CONTRAST Referral ID Status Reason Start Date Expiration Date Visits V isits Requested Authorized [id number] Auth-No 12/26/2014 1 1 PA/Ref Req Encounter Details Date Type Department Care Team Description 12/28/2014 Hospital Encounter Special[facility] Center Ariella ging - MRI [address] [place], [place] [address] Social History Tobacco Use Types [...] MIST) 0.65 % into EACH nare Nasal [place] every 1 (one) hour SprAIndications: Sinus as [...] unspecified documented in this encounter Care Teams Stack Clerk Relationship Specialty Start Date End Date Jacques Alcantara MD PCP - General Family Medicine 12/15/12 [facility], PCP - Primary Care Clinic 3 09[facility]16[facility]17 [facility] documented as of this encounter
--- OUTSIDE RECORDS SUMMARY | 2022-02-11 11:14 | XMS_ITS | Encounter Summary ---
:1975 Author Organization [facility] Address [address] [place] [address] Care Team Providers Name Role Phone Jacques Alcantara MD Primary Care Provider Unavailable [facility] Unavailable Unavailable Reason for Visit Reason Comments Post op check Encounter Details Date Type Department Care Team Description 02/27/2014 Office Visit [facility] Vivian Chapa DPM Pain in limb (Primary Clinic - [address] Sanchez) [address] [address] [address] [place], [place] [phone] (Wo rk) Social History Tobacco Use Types [...] time. Robert Chapa DPM /LD Dictation ID: [id number] documented in this encounter Plan of Treatment [...] Early calcification of surrounding callus. EXAM CODE: ?[id number] RT Narrative 02/28/2014 8:55 AM CDT EXAM: [...] Early calcification of surrounding callus. EXAM CODE: [id number] RT Robert E Zelent DPM XRAY ORDERABLE documented in this encounter Visit Diagnoses Diagnosis Pain in limb - Primary documented in this encounter Care Teams Spine Specialist Relationship Specialty Start Date End Date Jacques Alcantara MD PCP - General Family Medicine 12/15/12 [facility], PCP - Primary Care Clinic 3 09/16/[address] [facility] documented as of this encounter
--- OUTSIDE RECORDS SUMMARY | 2022-02-11 11:14 | XMS_ITS | Encounter Summary ---
:1975 Author Organization [facility] Address [address] [place] [address] Care Team Providers Name Role Phone Jacques Alcantara MD Primary Care Provider Unavailable [facility] Unavailable Unavailable Reason for Referral Consultation (Routine) - Closed Specialty Diagnoses / Procedures Referred By Contact Refer red To Contact Physical Therapy Diagnoses Bilateral low back pain with [place] [address] [place] [address] Referral ID Status Reason Start Date Expiration Date Visits V isits Requested Authorized [id number] Closed Specialty 01/25/2015 07/24/2015 1 1 Services Required Comments Referral Dr. Darrick Brown DC at [facility]. Please evaluate and treat. Please incorp orate massage and chiropractic services into PT as indicated. Reason for Visit Reason Comments Rx refill requip and omeprazole Referral request [facility] for DMR Method Encounter Details Date Type Department Care Team Description 01/25/2015 Office Visit [facility] Jacques Alcantara, Bi lateral low back pain with left-sided sciatica (Primary Dx); Clinic - [facility] Abdominal pain, other specif ied site; [address] [place] [address] RLS (rest less legs syndrome); S.E. Flu vaccine need [place], [place] [address] Social History Tobacco Use Types [...] states that she found a center [facility] [place] [facility] going and it is working wonders for [...] mouth Twice a Day. ? ? Glucosamine &Cdopnrsbl-AC-Uwz0 511-110-95-0.5 mg Oral Tab Take 1 Tab by [...] (SALINE NASAL MIST) 0.65 % Nasal [place] SprA Instill 1- 2 Sprays into EACH [...] patient and/or guardian. Maria Del Rosario A [place] and/or guardian engaged in the decision making [...] influenza documented in this encounter Care Teams Commercial Front Load Operator Relationship Specialty Start Date End Date Jacques Alcantara MD PCP - General Family Medicine 12/15/12 [facility], PCP - Primary Care Clinic 3 09/16/17 [facility] documented as of this encounter
--- OUTSIDE RECORDS SUMMARY | 2022-02-11 11:14 | XMS_ITS | Encounter Summary ---
:1975 Author Organization [facility] Address [address] [place] [address] Care Team Providers Name Role Phone Jacques Alcantara MD Primary Care Provider Unavailable [facility] Unavailable Unavailable Reason for Referral (Routine) - Closed Specialty Diagnoses / Procedures Referred By Contact Refer red To Contact Procedures Robert Chapa DPM Discharge Instructions [address] [place], [place] [address] Referral ID Status Reason Start Date Expiration Date Visits Requ ested Visits Authorized [id number] Closed 02/16/2014 08/15/2014 1 1 (Routine) - Closed Specialty Diagnoses / Procedures Referred By Contact Refer red To Contact Procedures Robert Chapa DPM Weight bearing [address] [place] [address] Dr [facility] [place] [address] Referral ID Status Reason Start Date Expiration Date Visits Requ ested Visits Authorized [id number] Closed 02/16/2014 08/15/2014 1 1 (Routine) - Closed Specialty Diagnoses / Procedures Referred By Contact Refer red To Contact Robert Chapa DPM Zelent, Mark E, DPM [address] [place] [address] Dr Mosher [address] [place] [address] [place] [address] Fax: Referral ID Status Reason Start Date Expiration Date Visits Requ ested Visits Authorized [id number] Closed 02/16/2014 08/15/2014 1 1 Question Answer Specify time frame for follow up? 1 Week (Routine) - Closed Specialty Diagnoses / Procedures Referred By Contact Refer red To Contact Procedures Robert Chapa DPM Discharge [address] [place] [address] [facility] [address], [place] [address] Referral ID Status Reason Start Date Expiration Date Visits Requ ested Visits Authorized [id number] Closed 02/16/2014 08/15/2014 1 1 Encounter Details Date Type Department Care Team Description 02/16/2014 Hospital Encounter [facility] Robert Chapa DPM Hospital Patient Care [address] [place] [address] Dr Arias [address] [place] [address] [place], [place] [phone] (Wo rk) Social History Tobacco Use Types [...] live longer. For further assistanceplease call the [employer] Helpline at 4-(623)-912-BELJ or go to their website [email or web address]. Contact your Primary Care Physician with any [...] AM CDT Maria Del Rosario Servin 1975 [phone] P: Discharge A: Discharged via wheelchair to [...] of Service: 02/16/2014 SURGEON: Robert Chapa DPM AUTOMOBILE RADIO REPAIRER: Dandy Ervin DPM PREOPERATIVE DIAGNOSES: 1. Metatarsalgia, [...] instructions. Robert Chapa DPM /DY Dictation ID: [id number] OR Surgeon - Robert Chapa DPM - 02/16/2014 8:09 AM CDT POST OPERATIVE IMMEDIATE PREOPERATIVE DIAGNOSIS DX: METATARSALGIA RIGHT FOOT POSTOPERATIVE DIAGNOSIS same PROCEDURE Procedure(s): RIGHT FOURTH METATARSAL OSTEOTOMY Surgeon(s): Robert Chapa DPM Asphalt Screed Operator(s): Dandy Ervin DPM Other surgical staff (if any): Circulating nurse: Renée Buenrostro, RN; Valentina Scott RN lead nuclear medicine technologist: Alecia Bellamy mammography tech: Shawna Leung; Westley Connolly Anesthesia MAC EBL: [...] information. documented in this encounter Care Teams Oracle Security Consultant Relationship Specialty Start Date End Date Jacques Alcantara MD PCP - General Family Medicine 12/15/12 [facility], PCP - Primary Care Clinic 3 09/16/17 [facility] documented as of this encounter
--- OUTSIDE RECORDS SUMMARY | 2022-02-11 11:14 | XMS_ITS | Encounter Summary ---
:1975 Author Organization [facility] Address [address] [place] [address] Care Team Providers Name Role Phone Jacques Alcantara MD Primary Care Provider Unavailable [facility] Unavailable Unavailable Reason for Referral (Routine) - Auth-No PA/Ref Req Specialty Diagnoses / Procedures Referred By Contact Refer red To Contact Diagnoses Bilateral low back pain, with sciatica presence unspecified Zeb Mckeon DO Procedures MRI SPINE LUMBAR W/O CONTRAST Referral ID Status Reason Start Date Expiration Date Visits V isits Requested Authorized [id number] Auth-No 12/26/2014 1 1 PA/Ref Req Reason for Visit Reason Comments Back pain Encounter Details Date Type Department Care Team Description 12/26/2014 Office Visit [facility] Linda Walker Shane Bi lateral low back Spine & Joint M., DO pain, with sciatica [address] (Primary Dx) [place] [phone] Social History Tobacco Use Types Packs/Day Years [...] seen significant improvement. She was referred to [facility] upon referral from Dr. Alcantara to further [...] accordingly. Zeb Mckeon DO /LD Dictation ID: [id number] Zeb Mckeon DO - 12/26/2014 9:55 AM CDT This office note has been dictated. [id number] documented in this encounter Plan of Treatment [...] unspecified documented in this encounter Care Teams Finance Advisor Relationship Specialty Start Date End Date Jacques Alcantara MD PCP - General Family Medicine 12/15/12 [facility], PCP - Primary Care Clinic 3 09/16/17 [facility] documented as of this encounter
--- OUTSIDE RECORDS SUMMARY | 2022-02-11 11:14 | XMS_ITS | Encounter Summary ---
:1975 Author Organization [facility] Address [address] [place] [address] Care Team Providers Name Role Phone Jacquse Alcantara MD Primary Care Provider Unavailable [facility] Unavailable Unavailable Reason for Visit Reason Comments Back pain Low Back Encounter Details Date Type Department Care Team Description 05/24/2015 Hospital Encounter [facility] Milena Mason, ZOFIA,PROFILE TRIMMER Management Center [facility] [address] [address] [address] [place] [address] [phone] (Wo rk) Social History Tobacco Use Types [...] Comments Blood Pressure 136/72 05/24/2015 7:56 AM SERVICE DELIVERY MANAGEMENT CONSULTANT Pulse 83 05/24/2015 7:56 AM SERVICE DELIVERY MANAGEMENT CONSULTANT Temperature - - Respiratory Rate - - Oxygen Saturation 96% 05/24/2015 7:56 AM SERVICE DELIVERY MANAGEMENT CONSULTANT Inhaled Oxygen Concentration - - Weight - - Height - - Body Mass Index - - documented in this encounter Discharge Instructions Patient InstructionsPatti Mason APRN, DATA TYPIST - 05/24/2015 9:13 AM SERVICE DELIVERY MANAGEMENT CONSULTANT 1. Schedule L5-S1 anterior fusion with [facility]. Patient will call us once she has a date. 2. Continue gabapentin as previously prescribed. 3. Continue Robaxin as previously prescribed. 4. RTC after surgery. ICE DELIVERY MANAGEMENT CONSULTANT documented in this encounter Medications at Time of Discharge Medication Sig Dispensed Refills Start Date End Date dextroamphetamine-ampheta Take by mouth Twice 0 08/27/2016 mine (ADDERALL XR) 10 mg a Day. Oral 24hr SR caps Glucosamine Take 1 Tab by mouth 90 Tab 3 01/25/201512/09 &Giehgsadx-DR-Jpv8 Once Daily. 165-659-13-0.5 mg Oral TabIndications: Bilateral low back pain with left-sided sciatica ibuprofen (MOTRIN) 800 mg Take 1 Tab by mouth 120 Tab 2 1 06/17/2014 09/17/2017 Oral Tab every 8 (eight) hours as needed. sodium chloride 0.65% Instill 1-2 Sprays 1 Bottle 11 201412/02/2017 (SALINE NASAL MIST) 0.65 into EACH nare every % Nasal [place] 1 (one) hour as SprAIndications: Sinus needed. [...] Patient Name: Maria Del Rosario Servin Address: [address] [place] [address] CHIEF COMPLAINT Low back and hip pain INTERVAL HISTORY Maria Del Rosario Servin is a 39 y.o. female who presents for evaluation of low back and hip pain. Patient states that her pain is the same. 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 Marks per his 03/14/15 recommendations. Call [facility] for surgery date. Would expect Dr. Sorto team to manage her pain in the acute post-op period and then we will resume. 3. Refilled gabapentin 300mg, one tab TID. #90. Ref 2. 4. Continue Robaxin as previously prescribed. 5. Discontinue Ibuprofen until after surgery. 6. RTC after surgery (2-3 months). Patti Mason APRN, DATA TYPIST ICE DELIVERY MANAGEMENT CONSULTANT documented in this encounter Plan of Treatment Not on filedocumented as of this encounter Visit Diagnoses Diagnosis Bilateral low back pain, with sciatica p resence unspecified - Primary documented in this encounter Care Teams Cafe Helper Relationship Specialty Start Date End Date Jacques Alcantara MD PCP - General Family Medicine 12/15/12 [facility], PCP - Primary Care Clinic 3 09/16/17 [facility] documented as of this encounter
--- OUTSIDE RECORDS SUMMARY | 2022-02-11 11:14 | XMS_ITS | Encounter Summary ---
:1975 Author Organization [facility] Address [address] [place] [address] Care Team Providers Name Role Phone Jacques Alcantara MD Primary Care Provider Unavailable [facility] Unavailable Unavailable Reason for Referral (Routine) - Closed Specialty Diagnoses / Procedures Referred By Contact Refer red To Contact Diagnoses Visit for screening mammogram Jacques Alcantara [place] [address] [place] [address] Referral ID Status Reason Start Date Expiration Date Visits Requ ested Visits Authorized [id number] Closed 02/05/2015 08/04/2015 1 1 Reason for Visit (Routine) - Closed Specialty Diagnoses / Procedures Referred By Contact Refer red To Contact Diagnoses Visit for screening mammogram Jacques Alcantara [place] [address] [place] [address] Referral ID Status Reason Start Date Expiration Date Visits Requ ested Visits Authorized [id number] Closed 02/05/2015 08/04/2015 1 1 Encounter Details Date Type Department Care Team Description 02/15/2015 Hospital Encounter [facility] [address] [place] [address], [address] [place], [place] [address] Social History Tobacco Use Types [...] Tab by mouth 90 Tab 3 01/25/201512/09 &Czznubqiy-UP-Npu1 Once Daily. 548-662-99-0.5 mg Oral TabIndications: Bilateral low back pain with left-sided sciatica LORazepam (ATIVAN) 0.5 mg Take 0.5 mg by mouth 0 03/08/2015 Oral Tab Twice a Day. sodium chloride 0.65% Instill 1-2 Sprays 1 Bottle 11 201412/02/2017 (SALINE NASAL MIST) 0.65 into EACH nare every % Nasal [place] 1 (one) hour as SprAIndications: Sinus needed. [...] AM CDT Impressions 02/15/2015 9:11 AM CDT #[id number] - MAMMO DIGITAL SCREENING BI BILATERAL FIRST [...] note might be different from the original. #[id number] - MAMMO DIGITAL SCREENING BI BILATERAL FIRST [...] mammogram documented in this encounter Care Teams Middle Stitcher Relationship Specialty Start Date End Date Jacques Alcantara MD PCP - General Family Medicine 12/15/12 [facility], PCP - Primary Care Clinic 3 [facility] this encounter
--- OUTSIDE RECORDS SUMMARY | 2022-02-11 11:14 | XMS_ITS | Encounter Summary ---
:1975 Author Organization [facility] Address [address] [place] [address] Care Team Providers Name Role Phone Jacques Alcantara MD Primary Care Provider Unavailable [facility] Unavailable Unavailable Reason for Referral Consultation (Routine) - Closed Specialty Diagnoses / Procedures Referred By Contact Refer red To Contact Pain Management Diagnoses Bilateral low back pain, with sciatica presence unspecified Zeb Mckeon DO Referral ID Status Reason Start Date Expiration Date Visits V isits Requested Authorized [id number] Closed Specialty 01/08/2015 07/07/2015 1 1 Services Required Comments *ORDER FOR EPIDURAL STEROID INJECTION/PA IN MANAGMENT [facility] [address] [place] [address] [facility] [address] [facility] [place] [address] [facility] [address] [place] [address] EVAL LUMBAGO/SI PAIN W/ B/L LE RADIC L>R . LSPINE MRI W/ L5-S1 DDD, SPONDYLOSITHESIS W/ B/L L5-S1 FORMAINAL STENOSIS L>R. PLE ASE PROCEED W/ B/L L5 TF ISIDRO. Reason for Visit Reason Comments Test results (Imaging) Encounter Details Date Type Department Care Team Description 01/08/2015 Office Visit [facility] Linda Walker Shane Bi lateral low back [facility] MDO Gio pain, with sciatica [address] (Primary Dx) [place] [phone] Social History Tobacco Use Types Packs/Day Years [...] for a bilateral L5 transforaminal ISIDRO at [facility] in the near future. 6. We are going to see the patient back on an as needed basis. In turn, she is going to contact the clinic in approximately seven to ten days to provide us her ISIRDO response. Based upon that response wewill be hopeful to have her reengage in formal therapy and develop an HEP and proceed forward. Zeb Mckeon DO /CP Dictation ID: [id number] Zeb Mckeon DO - 01/08/2015 10:47 AM CDT This office note has been dictated. [id number] documented in this encounter Plan of Treatment Scheduled Referrals Name Type Priority Associated Diagnoses Order [facility] REFERRAL PAIN CLINIC - Referral Routine Bilateral Low Back Pain, Ordered: 01/08/2015 OUTSIDE FACILITY With Sciatica Presence Unspecified documented as of this encounter Visit Diagnoses Diagnosis Bilateral low back pain, with sciatica p resence unspecified - Primary documented in this encounter Care Teams Slimer Relationship Specialty Start Date End Date Jacques Alcantara MD PCP - General Family Medicine 12/15/12 [facility], PCP - Primary Care Clinic 3 09/16/17 [facility] documented as of this encounter
--- OUTSIDE RECORDS SUMMARY | 2022-02-11 11:14 | XMS_ITS | Encounter Summary ---
:1975 Author Organization [facility] Address [address] [place] [address] Care Team Providers Name Role Phone Jacques Alcantara MD Primary Care Provider Unavailable [facility] Unavailable Unavailable Reason for Referral Consultation (Routine) - Closed Specialty Diagnoses / Procedures Referred By Contact Refer red To Contact Sports Medicine Diagnoses Lumbar strain, initial encounter Jacques Alcantara MD [place] [facility]eb Benavides[place], [address] [place] [address] Referral ID Status Reason Start Date Expiration Date Visits V isits Requested Authorized [id number] Closed Specialty 04/26/2014 1 1 Services Required Comments Order Comment: Acute on chronic low back pain present for many years. [facility] Scheduling Instructions [facility] will be contacting you to schedule your appointment. If you have immediate needs or questions regarding this appointment please call [facility] at [phone]. ION SUPERINTENDENT Reason for Visit Reason Comments Back pain Fall x2 days Encounter Details Date Type Department Care Team Description 04/26/2014 Office Visit [facility] Jacques Alcantara Lu mbar strain, initial encounter (Primary Dx); Clinic - [facility] Chronic lumbar pain [address] [place] [address] Social History Tobacco Use Types Packs/Day Years [...] Comments Blood Pressure 118/82 04/26/2014 11:00 AM STATION SUPERINTENDENT Pulse 93 04/26/2014 11:00 AM STATION SUPERINTENDENT Temperature 36.8 ??C (98.3 ??F) 04/26/2014 11:00 AM STATION SUPERINTENDENT Respiratory Rate 16 04/26/2014 11:00 AM STATION SUPERINTENDENT Oxygen Saturation 98% 04/26/2014 11:00 AM STATION SUPERINTENDENT Inhaled Oxygen Concentration - - Weight 92.5 kg (204 lb) 04/26/2014 11:00 AM STATION SUPERINTENDENT Height 157.5 cm (5' 2) 04/26/2014 11:00 AM STATION SUPERINTENDENT Body Mass Index 37.31 04/26/2014 11:00 AM STATION SUPERINTENDENT documented in this encounter Progress Notes Jacques [...] despite previous interventions and wonder what her adjunct faculty for medical terminology options are. Current Outpatient Prescriptions Medication Sig [...] with her that narcotics are not a adjunct faculty for medical terminology solution for her chronic pain and referred [...] optionsdiscussed and agreed with the final plan. ION SUPERINTENDENT documented in this encounter Miscellaneous Notes Encounter Documentation - Judith Jon CMA - 04/26/2014 10:59 AM STATION SUPERINTENDENT Reviewed medications pt stated she was taking these and needs refills but some are narcotics will let PCP decide and refill. KL ION SUPERINTENDENT documented in this encounter Plan of Treatment Scheduled Referrals Name Type Priority Associated Diagnoses Order S chedule REFERRAL [facility], Follow Up Routine Lumbar strain, initial Ordered: 04/26/2014 [facility] encounter documented as of this encounter Visit Diagnoses Diagnosis Lumbar strain, initial encounter - Prima ry Chronic lumbar pain Lumbago documented in this encounter Care Teams Broadband Engineer Relationship Specialty Start Date End Date Jacques Alcantara MD PCP - General Family Medicine 12/15/12 [facility], PCP - Primary Care Clinic 3 09[facility]16[facility]17 [facility] as of this encounter
--- OUTSIDE RECORDS SUMMARY | 2022-02-11 11:14 | XMS_ITS | Encounter Summary ---
:1975 Author Organization [facility] Address [address] [place] [address] Care Team Providers Name Role Phone Jacques Alcantara MD Primary Care Provider Unavailable [facility] Unavailable Unavailable Reason for Referral Consultation - Internal (Routine) - Closed Specialty Diagnoses / Procedures Referred By Contact Refer red To Contact Pain Management Diagnoses Bilateral low back pain, with sciatica presence unspecified Robert Taveras [facility][NOTE 3] COMPREHENSIVE PAIN [address] [facility] MANAGEMENT [place] [address] [place] [address] CHARLENE , JOSÉ MIGUEL [facility] [address] [place] [address] Phone: Fax: Referral ID Status Reason Start Date Expiration Date Visits Requ ested Visits Authorized [id number] Closed 03/08/2015 09/04/2015 1 1 Scheduling Instructions If your follow up appointment is not alr óscar scheduled, CALL today or tomorrow to schedule it. Comments Referral For: Spine surgeon Referral To: [facility] Dr. Kendrikc blanco DX: Low back pain, NNEKA hip pain Special Instructions: Please call haily rivero to schedule @ [phone]. Referring Provider: Robert Taveras MD [facility] Ph. [phone] Fax. [phone] Reason for Visit Reason Comments Back pain Hip pain Consultation - Internal (Routine) - Closed Specialty Diagnoses / Procedures Referred By Contact Refer red To Contact Diagnoses History of vertebral fracture Jacques Alcantara MD [facility] [address] [place] [address] [address] [facility] [place] [address] Phone: Fax: Referral ID Status Reason Start Date Expiration Date Visits V isits Requested Authorized [id number] Closed Specialty 02/07/2015 08/06/2015 1 1 Services Required Encounter Details Date Type Department Care Team Description 03/08/2015 Hospital Encounter [facility] Vivian Taveras, [facility] [address] [facility] N [address] [facility] N [place] [address] [place] [phone] Social History Tobacco Use Types Packs/Day Years [...] #[address] Marks from [facility] 3. Return to clinic in 4-6 weeks. documented in this encounter Medications at Time of Discharge Medication Sig Dispensed Refills Start Date End Date dextroamphetamine-ampheta Take by mouth Twice 0 08/27/2016 mine (ADDERALL XR) 10 mg a Day. Oral 24hr SR caps Glucosamine Take 1 Tab by mouth 90 Tab 3 01/25/2015 08/12/2015 &Avoltuula-CG-Bdr4 Once Daily. 548-692-05-0.5 mg Oral TabIndications: Bilateral low back pain with left-sided sciatica ibuprofen (MOTRIN) 800 mg Take 1 Tab by mouth 120 Tab 2 1 06/17/2014 09/17/2017 Oral Tab every 8 (eight) hours as needed. sodium chloride 0.65% Instill 1-2 Sprays 1 Bottle 11 201412/02/2017 (SALINE NASAL MIST) 0.65 into EACH nare every % Nasal [place] 1 (one) hour as SprAIndications: Sinus needed. [...] Name: Maria Del Rosario Servin Address: [address] [place] [address] Primary Care Provider: Jacques Alcantara MD CHIEF [...] Depression with anxiety ??? Bipolar disorder 1999 [facility] ??? RLS (restless legs syndrome) [...] gabapentin (NEURONTIN) 300 mg Oral Cap Glucosamine &Krzpkqzdo-OJ-Csz3 675-803-33-0.5 mg Oral Tab omeprazole (PRILOSEC) 20 mg Oral CpDR rOPINIRole (REQUIP) 3 mg Oral Tab sodium chloride 0.65% (SALINE NASAL MIST) 0.65 % Nasal [place] SprA topiramate (TOPAMAX) 25 mg Oral Tab [...] to time, person and place IMAGING MRI ([place] 12/2014): L5-S1 spondylolisthesis and neural foraminal narrowing [...] watch initially before driving. 3. Consulted Dr. aMrks at [facility] for her low back pain. 4. RTC 1 month Robert Taveras MD Diplomate of [place] Board of Anesthesiology, Pain Medicine documented in [...] unspecified documented in this encounter Care Teams Calender Wind Up Tender Relationship Specialty Start Date End Date Jacques Alcantara MD PCP - General Family Medicine 12/15/12 [facility], PCP - Primary Care Clinic 3 09/16/17 [facility] documented as of this encounter
--- OUTSIDE RECORDS SUMMARY | 2022-02-11 11:14 | XMS_ITS | Encounter Summary ---
:1975 Author Organization [facility] Address [address] [place] [address] Care Team Providers Name Role Phone Jacques Alcantara MD Primary Care Provider Unavailable [facility] Unavailable Unavailable Reason for Visit Reason Comments Infection right foot pain Encounter Details Date Type Department Care Team Description 11/18/2013 Office Visit [facility] Jacques Alcantara, Ryan kruger of right Clinic - [facility] foot (Primary Dx) [address] [place] [address] Social History Tobacco Use Types Packs/Day Years [...] patient and/or guardian. Maria Del Rosario Veliz [place] and/or guardian engaged in the decision making process and verbalized understanding of the optionsdiscussed and agreed with the final plan. documented in this encounter Plan of Treatment Not on filedocumented as of this encounter Visit Diagnoses Diagnosis Plantar wart of right foot - Primary Plantar wart documented in this encounter Care Teams Package Pick Up Relationship Specialty Start Date End Date Jacques Alcantara MD PCP - General Family Medicine 12/15/12 [facility], PCP - Primary Care Clinic 3 09/16/17 [facility] documented as of this encounter
--- OUTSIDE RECORDS SUMMARY | 2022-02-11 11:14 | XMS_ITS | Encounter Summary ---
:1975 Author Organization [facility] Address [address] [place] [address] Care Team Providers Name Role Phone Jacques Alcantara MD Primary Care Provider Unavailable [facility] Unavailable Unavailable Reason for Visit Reason Comments Dizziness x1 month Headache above right eye Encounter Details Date Type Department Care Team Description 07/12/2014 Office Visit [facility] Jacques Alcantara Si nus headache (Primary Dx); Clinic - [facility] Dizziness; [address] [place] [address] Marijuana use [place] [address] Social History Tobacco Use Types Packs/Day Years [...] Comments Blood Pressure 112/62 07/12/2014 1:37 PM CURVE SAW OPERATOR Pulse 72 07/12/2014 1:37 PM CURVE SAW OPERATOR Temperature 37 ??C (98.6 ??F) 07/12/2014 1:37 PM CURVE SAW OPERATOR Respiratory Rate 16 07/12/2014 1:37 PM CURVE SAW OPERATOR Oxygen Saturation 98% 07/12/2014 1:37 PM CURVE SAW OPERATOR Inhaled Oxygen Concentration - - Weight 97.3 kg (214 lb 8 oz) 07/12/2014 1:37 PM CURVE SAW OPERATOR Height 157.5 cm (5' 2) 07/12/2014 1:37 PM CURVE SAW OPERATOR Body Mass Index 39.23 07/12/2014 1:37 PM CURVE SAW OPERATOR documented in this encounter Progress Notes Jacques [...] 0.65% (SALINE NASAL MIST) 0.65 % Nasal [place] SprA Instill 1- 2 Sprays into EACH [...] 0.65% (SALINE NASAL MIST) 0.65 % Nasal [place] SprA -reviewed with pt that smoke from whatever she may be smoking is likely contributing to her symptoms and stop smoking and start using nasal saline spray several times daily and continue to monitor. Reviewed no susan cations for abx at this time. Dizziness - Plan: sodium chloride 0.65% (SALINE NASAL MIST) 0.65 % Nasal [place] SprA - counseled pt on home Kin [...] optionsdiscussed and agreed with the final plan. E SAW OPERATOR documented in this encounter Miscellaneous Notes Encounter Documentation - Judith Jon CMA - 07/12/2014 1:39 PM CURVE SAW OPERATOR Reviewed medications and pharmacy with pt she stated these are the current medications she is taking. KL E SAW OPERATOR documented in this encounter Plan of Treatment Not on filedocumented as of this encounter Visit Diagnoses Diagnosis Sinus headache - Primary Headache Dizziness Dizziness and giddiness Marijuana use Cannabis abuse, unspecified documented in this encounter Care Teams Applied Psychology Teacher Relationship Specialty Start Date End Date Jacques Alcantara MD PCP - General Family Medicine 12/15/12 [facility], PCP - Primary Care Clinic 3 09/16/17 [facility] documented as of this encounter
--- OUTSIDE RECORDS SUMMARY | 2022-02-11 11:14 | XMS_ITS | Encounter Summary ---
:1975 Author Organization [facility] Address [address] [place] [address] Care Team Providers Name Role Phone Jacques Alcantara MD Primary Care Provider Unavailable [facility] Family Phy Unavailable Unavailable Reason for Visit Reason Comments Pre Op exam right foot Encounter Details Date Type Department Care Team Description 01/25/2014 Office Visit [facility] Jacques Alcantara Preop cardiovascular exam (Primary Dx); Clinic - Lashell Veliz MD Flu vaccine need; [address] [place] [address] Avenue Metatarsa lgia of right foot; S.E. Hyperkeratosis; [place], [place] [address] Asthma, mild intermittent, u ncomplicated; [phone] Tobacco abuse Social History Tobacco Use Types [...] 11:13 AM CDT Dos 10-9-14 Dr Chapa [facility] RT foot metatarsal osteotomy documented in this encounter Progress Notes Jacques Alcantara MD - 01/25/2014 11:49 AM CDT Preoperative History and Physical Examination Date of Examination: 01/25/2014 Proposed Surgery: Right Foot Metatarsal Osteotomy Surgeon: Dr. Salcedo Date of Surgery: 02/16/2014 Location of Surgery: [facility] Maria Del Rosario Servin presents today [...] with anxiety ??? Bipolar disorder 1999 [facility] ??? RLS (restless legs syndrome) 2004 [...] disorder documented in this encounter Care Teams Sail Maker Relationship Specialty Start Date End Date Jacques Alcantara MD PCP - General Family Medicine 12/15/12 [facility], PCP - Primary Care Clinic 3 09[facility]16[facility]17 [facility] documented as of this encounter
--- OUTSIDE RECORDS SUMMARY | 2022-02-11 11:14 | XMS_ITS | Encounter Summary ---
:1975 Author Organization [facility] Address [address] [place] [address] Care Team Providers Name Role Phone Jacques Alcantara MD Primary Care Provider Unavailable [facility] Unavailable Unavailable Reason for Referral (Routine) - Closed Specialty Diagnoses / Procedures Referred By Contact Refer red To Contact Diagnoses Pain in limb Robert Chapa DPMakayla Procedures XR FOOT RT [address] [place] [address] [place] [address] Referral ID Status Reason Start Date Expiration Date Visits Requ ested Visits Authorized [id number] Closed 01/17/2014 07/16/2014 1 1 Reason for Visit (Routine) - Closed Specialty Diagnoses / Procedures Referred By Contact Refer red To Contact Diagnoses Pain in limb Robert Chapa DPMakayla Procedures XR FOOT RT [address] [place] [address] [address] [place], [place] [address] Referral ID Status Reason Start Date Expiration Date Visits Requ ested Visits Authorized [id number] Closed 01/17/2014 07/16/2014 1 1 Encounter Details Date Type Department Care Team Description 01/17/2014 Hospital Encounter [facility] [address] [facility] [place] [place] [address] Social History Tobacco Use Types [...] limb documented in this encounter Care Teams Tufting Machine Operator Relationship Specialty Start Date End Date Jacques Alcantara MD PCP - General Family Medicine 12/15/12 [facility], PCP - Primary Care Clinic 3 09/16/17 [facility] documented as of this encounter
--- OUTSIDE RECORDS SUMMARY | 2022-02-11 11:14 | XMS_ITS | Encounter Summary ---
:1975 Author Organization [facility] Address [address] [place] [address] Care Team Providers Name Role Phone Jacques Alcantara MD Primary Care Provider Unavailable [facility] Phy Unavailable Unavailable Reason for Visit Reason Comments Warts right plantar wart; primary attempted cryo twice and debriding the area Encounter Details Date Type Department Care Team Description 12/21/2013 Office Visit [facility] Vivian Chapa, DPM Corns and callosities (Primary Dx); Clinic - [address] Brooks specified viral warts; [address] [facility] [address] Pain in limb [place], [place] [address] [place], [place] [phone] (Wo rk) Social History Tobacco Use Types [...] MEDICATIONS AND PAST MEDICAL HISTORY: Reviewed in [facility] medical record. SOCIAL HISTORY: Unremarkable. 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 She does not work outside the [...] needed. Robert Chapa DPM /JONAS Dictation ID: [id number] Robert Chapa DPM - 12/22/2013 7:53 AM [...] Depression with anxiety ??? Bipolar disorder 1999 [facility] medical clinic ??? RLS (restless legs [...] limb documented in this encounter Care Teams Architectural Draftsman Relationship Specialty Start Date End Date Jacques Alcantara MD PCP - General Family Medicine 12/15/12 [facility], PCP - Primary Care Clinic 3 [facility]16[facility] documented as of this encounter
--- OUTSIDE RECORDS SUMMARY | 2022-02-11 11:14 | XMS_ITS | Encounter Summary ---
:1975 Author Organization [facility] Address [address] [place] [address] Care Team Providers Name Role Phone Jacques Alcantara MD Primary Care Provider Unavailable [facility] Unavailable Unavailable Reason for Visit Reason Comments Back pain Low Back Encounter Details Date Type Department Care Team Description 04/13/2015 Hospital Encounter [facility] Milena Mason, ZOFIA,MOTOR VEHICLE LICENCE EXAMINER Management Center [facility] [address] [place] [address] [address] [place] [address] [phone] (Wo rk) Social History Tobacco Use Types [...] Comments Blood Pressure 131/69 04/13/2015 9:48 AM RELIGIOUS EDUCATION DIRECTOR Pulse 82 04/13/2015 9:48 AM RELIGIOUS EDUCATION DIRECTOR Temperature - - Respiratory Rate - - Oxygen Saturation 97% 04/13/2015 9:48 AM RELIGIOUS EDUCATION DIRECTOR Inhaled Oxygen Concentration - - Weight - - Height - - Body Mass Index - - documented in this encounter Discharge Instructions Patient InstructionsPatti Mason APRN, [employer] CERTIFIED NETWORK ASSOCIATE - 04/13/2015 10:33 AM RELIGIOUS EDUCATION DIRECTOR 1. Continue and finish physical therapy 2. Continue with chiropractor 3. Recommendation from Dr. Marks at [facility] for anterior L5-S1 fusion surgery. Patient was told she needs to finish PT first and then schedule the surgery. 4. Recommendation for Robaxin 500mg, one tab BID. #60. 2refills 5. Recommendation for Ibuprofen 800mg, one tab every 8 hours. #120. 2 refills 6. RTC in one month. GIOUS EDUCATION DIRECTOR documented in this encounter Medications at Time of Discharge Medication Sig Dispensed Refills Start Date End Date dextroamphetamine-ampheta Take by mouth Twice 0 08/27/2016 mine (ADDERALL XR) 10 mg a Day. Oral 24hr SR caps Glucosamine Take 1 Tab by mouth 90 Tab 3 01/25/2015 08/1 12/2015 &Kcbqblbaa-HI-Vty4 Once Daily. 353-942-12-0.5 mg Oral TabIndications: Bilateral low back pain with left-sided sciatica ibuprofen (MOTRIN) 800 mg Take 1 Tab by mouth 120 Tab 2 1 06/17/2014 09/17/2017 Oral Tab every 8 (eight) hours as needed. sodium chloride 0.65% Instill 1-2 Sprays 1 Bottle 11 201412/02/2017 (SALINE NASAL MIST) 0.65 into EACH nare every % Nasal [place] 1 (one) hour as SprAIndications: Sinus needed. [...] this encounter Progress Notes Patti Mason APRN, [employer]IS[employer] CERTIFIED NETWORK ASSOCIATE - 04/13/2015 10:23 AM CST [facility] RETURN EVALUATION Patient Name: Maria Del Rosario Servin Address: [address] [place] [address] CHIEF COMPLAINT Low back and hip pain INTERVAL HISTORY Maria Del Rosario Servin is a 39 y.o. female who presents for evaluation of low back and hip pain. 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 Patient reports that her pain is worsening. Patient met with Dr. Marks at [facility] 03/14/15 and he is recommending a [...] gabapentin (NEURONTIN) 300 mg Oral Cap Glucosamine &Zmdhklzyt-NG-Uho7 648-290-35-0.5 mg Oral Tab omeprazole (PRILOSEC) 20 mg Oral CpDR rOPINIRole (REQUIP) 3 mg Oral Tab sodium chloride 0.65% (SALINE NASAL MIST) 0.65 % Nasal [place] SprA topiramate (TOPAMAX) 25 mg Oral Tab [...] 4. RTC 1 month Patti Mason APRN, [employer]IS[employer] CERTIFIED NETWORK ASSOCIATE GIOUS EDUCATION DIRECTOR documented in this encounter Plan of Treatment Not on filedocumented as of this encounter Visit Diagnoses Diagnosis Spondylolisthesis of lumbar region - [facility] Acquired spondylolisthesis documented in this encounter Care Teams Comber Fixer Relationship Specialty Start Date End Date Jacques Alcantara MD PCP - General Family Medicine 12/15/12 [facility], PCP - Primary Care Clinic 3 09/16/17 [facility] documented as of this encounter
--- OUTSIDE RECORDS SUMMARY | 2022-02-11 11:14 | XMS_ITS | Encounter Summary ---
:1975 Author Organization [facility] Address [address] [place] [address] Care Team Providers Name Role Phone Jacques Alcantara MD Primary Care Provider Unavailable [facility] Unavailable Unavailable Reason for Referral (Routine) - Closed Specialty Diagnoses / Procedures Referred By Contact Refer red To Contact Diagnoses Pain in limb Robert Chapa DPM Procedures XR FOOT RT [address] [place] [address] [address] [place], [place] [address] Referral ID Status Reason Start Date Expiration Date Visits Requ ested Visits Authorized [id number] Closed 01/17/2014 07/16/2014 1 1 Reason for Visit Reason Comments Follow up Encounter Details Date Type Department Care Team Description 01/17/2014 Office Visit [facility] Vivian Chapa DPM Pain in limb (Primary Dx); Clinic - [address] Metatarsalgia, unspecified l aterality [address] [place] [address] [address] [place], [place] [address] [phone] (Wo rk) Social History Tobacco Use Types [...] trying to get her on schedule in [place] for next available. She will then call with other concerns. She understands that she will be nonweightbearing for the early part of the recovery, followed by weightbearing in a Cam walker for up two to three months. Robert Chapa DPM / Dictation ID: [id number] documented in this encounter Plan of Treatment [...] limb documented in this encounter Care Teams Service Parts Driver Relationship Specialty Start Date End Date Jacques Alcantara MD PCP - General Family Medicine 12/15/12 [facility], PCP - Primary Care Clinic 3 [facility] documented as of this encounter
--- OUTSIDE RECORDS SUMMARY | 2022-02-11 11:14 | XMS_ITS | Encounter Summary ---
:1975 Author Organization [facility] Address [address] [place] [address] Care Team Providers Name Role Phone Jacques Alcantara MD Primary Care Provider Unavailable [facility] Phy Unavailable Unavailable Reason for Visit Reason Comments Post op check Right foot Encounter Details Date Type Department Care Team Description 04/26/2014 Office Visit [facility] Vivian Chapa E, DPM Pain in limb (Primary Dx); Clinic - [address] Cecilia del real toe (acquired) [address] [place], [place] [phone] (Wo rk) Social History Tobacco Use Types [...] - - Pulse 80 04/26/2014 9:44 AM HEEL BREASTER Temperature 36.4 ??C (97.6 ??F) 04/26/2014 9:44 AM HEEL BREASTER Respiratory Rate 16 04/26/2014 9:44 AM HEEL BREASTER Oxygen Saturation - - Inhaled Oxygen Concentration - - Weight - - Height 157.5 cm (5' 2) 04/26/2014 9:44 AM HEEL BREASTER Body Mass Index - - documented in [...] Transplant Center ??? RLS (restless legs syndrome) 2004 requip [...] for full details of examination PSYCHOLOGICAL/JUDGEMENT: intact/normal BREASTER Robert Chapa DPM - 04/26/2014 1:48 PM [...] needed. Robert Chapa DPM /CHRIS Dictation ID: [id number] BREASTER documented in this encounter Plan of Treatment Not on filedocumented as of this encounter Results XR FOOT RT 3 VIEW (04/26/2014 10:13 AM HEEL BREASTER) Anatomical Region Laterality Modality Extremity Radiographic Imaging Specimen (Source) Anatomical Collection Method Collection Time Re ceived Time Location / / Volume Laterality 04/26/2014 11:54 AM HEEL BREASTER Impressions 04/26/2014 11:57 AM HEEL BREASTER IMPRESSION: 2 fully corticated screws course dorsal to plantar through the fourth metatarsal head. No hardware complication. No fracture. The fourth MTP joint is aligned. Narrative 04/26/2014 11:57 AM HEEL BREASTER EXAM: X-ray Foot 04/26/2014. COMPARISON: 01/17/2014 CLINICAL [...] (acquired) documented in this encounter Care Teams Scoreboard Operator Relationship Specialty Start Date End Date aJcques Alcantara MD PCP - General Family Medicine 12/15/12 [facility], PCP - Primary Care Clinic 3 09/16/17 [facility] documented as of this encounter
--- OUTSIDE RECORDS SUMMARY | 2022-02-11 11:14 | XMS_ITS | Encounter Summary ---
:1975 Author Organization [facility] Address [address] [place] [address] Care Team Providers Name Role Phone Jacques Alcantara MD Primary Care Provider Unavailable [facility] Unavailable Unavailable Reason for Referral (Routine) - Closed Specialty Diagnoses / Procedures Referred By Contact Refer red To Contact Diagnoses Endolymphatic hydrops, right Jacques Alcantara MD Procedures BASIC METAB PROFILE [address] [place] [address] Referral ID Status Reason Start Date Expiration Date Visits Requ ested Visits Authorized [id number] Closed 08/08/2014 02/04/2015 1 1 Reason for Visit Reason Comments Syncope Ears, went to ent has note Encounter Details Date Type Department Care Team Description 08/08/2014 Office Visit [facility] Jacques Alcantara Endol ymphatic hydrops, right (Primary Dx); Clinic - Lashell Veliz MD Tobacco abuse [address] [place], [place] [id number] Social History Tobacco Use Types Packs/Day Years [...] 0.65% (SALINE NASAL MIST) 0.65 % Nasal [place] SprA Instill 1- 2 Sprays into EACH [...] Signature SODIUM 139 136 - 145 08/08/2014 [facility] mMol/L 4:08 PM CDT LABORATORY POTASSIUM 4.2 3.5 - 5.1 08/08/2014 [facility] mMol/L 4:08 PM CDT LABORATORY CHLORIDE 106 98 - 112 08/08/2014 [facility] mMol/L 4:08 PM CDT LABORATORY CARBON DIOXIDE 29 21 - 32 08/08/2014 [facility] mMol/L 4:08 PM CDT LABORATORY BUN (UREA 8 7 - 24 08/08/2014 [facility] NITRO) mg/dL 4:08 PM CDT LABORATORY CREATININE 0.94 0.60 - 08/08/2014 [facility] 1.30 mg/dL 4:08 PM CDT LABORATORY EST GFR >60 >60 mL/min 08/08/2014 [facility] (CKD-EPI) 4:08 PM CDT LABORATORY EST GFR IF >60 >60 mL/min 08/08/2014 [facility] AM 4:08 PM CDT LABORATORY GLUCOSE 111 (H) 74 - 106 08/08/2014 [facility] mg/dL 4:08 PM CDT LABORATORY CALCIUM, SERUM 9.0 8.5 - 10.1 08/08/2014 [facility] mg/dL 4:08 PM CDT LABORATORY ANION GAP 4.0 0.0 - 15.0 08/08/2014 [facility] mMol/L 4:08 PM CDT LABORATORY Specimen Anatomical Collection Method / Collection Time Recei philipp Time (Source) Location / Volume Laterality Blood Venipuncture / 08/08/2014 10:55 5 Unknown AM CDT 10:55 AM CDT Jacques Alcantara MD CHEMISTRY ORDERABLE Performing Organization Address City/State/ZIP Code Phon e Number [facility] [address] [place] [address] LABORATORY [facility] [address] [place] [phone] documented in this encounter Visit Diagnoses Diagnosis Endolymphatic hydrops, right - Primary Tobacco abuse Tobacco use disorder documented in this encounter Care Teams Rod Piler Relationship Specialty Start Date End Date Jacques Alcantara MD PCP - General Family Medicine 12/15/12 [facility], PCP - Primary Care Clinic 3 09/16/17 [facility] Phy documented as of this encounter
--- OUTSIDE RECORDS SUMMARY | 2022-02-11 11:14 | XMS_ITS | Encounter Summary ---
:1975 Author Organization [facility] Address [address] [place] [address] Care Team Providers Name Role Phone Jacques Alcantara MD Primary Care Provider Unavailable [facility]y Unavailable Unavailable Reason for Visit Reason Comments Dry cough Sore throat losing voice - painful throa t Vomiting with diarrhea x3 days Encounter Details Date Type Department Care Team Description 12/09/2013 Office Visit [facility] Juana Hankins Up per respiratory infection (Primary Dx); Clinic - [facility] PA-C Voice hoarseness; [address] [place] [address] NE Nausea and vomiting; [place], [place] [address] Loose stools [phone] Social History Tobacco Use Types Packs/Day Years [...] feces documented in this encounter Care Teams Lapidarist Relationship Specialty Start Date End Date Jacques Alcantara MD PCP - General Family Medicine 12/15/12 [facility], PCP - Primary Care Clinic 3 09/16/17 [facility] documented as of this encounter
--- OUTSIDE RECORDS SUMMARY | 2022-02-11 11:14 | XMS_ITS | Encounter Summary ---
:1975 Author Organization [facility] Address [address] [place] [address] Care Team Providers Name Role Phone Jacques Alcantara MD Primary Care Provider Unavailable [facility] Family Phy Unavailable Unavailable Reason for Visit Reason Comments Follow up being seen at [facility]. F/u on back pain Other wanting to recommedation if she needs delivery and mail sorter dog or if she would benefit. Encounter Details Date Type Department Care Team Description 05/22/2015 Office Visit [facility] Jacques Alcantara De pression with anxiety (Primary Dx); Clinic - [facility] PRUITT Chronic back pain greater th an 3 months duration; [address] [place] [address] Grief [facility] [place] [address] Social History Tobacco Use Types Packs/Day Years [...] Comments Blood Pressure 112/70 05/22/2015 11:27 AM CALL CENTER REPRESENTATIVE Pulse 80 05/22/2015 11:27 AM CALL CENTER REPRESENTATIVE Temperature 36.6 ??C (97.8 ??F) 05/22/2015 11:27 AM CALL CENTER REPRESENTATIVE Respiratory Rate 18 05/22/2015 11:27 AM CALL CENTER REPRESENTATIVE Oxygen Saturation - - Inhaled Oxygen Concentration - - Weight 106.5 kg (234 lb 11.2 oz) 05/22/2015 11:27 AM CALL CENTER REPRESENTATIVE Height 154.9 cm (5' 1) 05/22/2015 11:27 AM CALL CENTER REPRESENTATIVE Body Mass Index 44.35 05/22/2015 11:27 AM CALL CENTER REPRESENTATIVE documented in this encounter Progress Notes Jacques [...] and at this point she [facility] either referral for surgery or [...] day. 90 Cap 2 ? ? Glucosamine &Yfoyuzoim-MT-Gin7 734-530-10-0.5 mg Oral Tab Take 1 Tab by [...] 0.65% (SALINE NASAL MIST) 0.65 % Nasal [place] SprA Instill 1- 2 Sprays into EACH [...] not able to get satisfactory improvement from [facility] she should let us know for [...] optionsdiscussed and agreed with the final plan. CENTER REPRESENTATIVE documented in this encounter Plan of Treatment Not on filedocumented as of this encounter Visit Diagnoses Diagnosis Depression with anxiety - Primary Dysthymic disorder Chronic back pain greater than 3 months duration Backache, unspecified Grief reaction Adjustment disorder with depressed mood documented in this encounter Care Teams Skinner Pelts Relationship Specialty Start Date End Date Jacques Alcantara MD PCP - General Family Medicine 12/15/12 [facility], PCP - Primary Care Clinic 3 [facility] as of this encounter
--- OUTSIDE RECORDS SUMMARY | 2022-02-11 11:14 | XMS_ITS | Encounter Summary ---
:1975 Author Organization [facility] Address [address] [place] [address] Care Team Providers Name Role Phone Jacques Alcantara MD Primary Care Provider Unavailable [facility] Phy Unavailable Unavailable Reason for Visit Reason Comments Follow up 3 week post op right foot. S till having some pain with bending the toes. Encounter Details Date Type Department Care Team Description 03/08/2014 Office Visit [facility] Robert Chapa, Ent hesopathy of unspecified site (Primary Dx); Clinic - [place] DPM Pain in limb [address] [facility] [address] [place], [place] [address] [place], [place] [phone] Social History Tobacco Use Types Packs/Day Years [...] weeks. Robert Chapa DPM /NB Dictation ID: [id number] Robert Chapa DPM - 03/08/2014 11:36 AM CDT SEE DICTATION FOR DETAILS OF EXAMINATION AND PLAN documented in this encounter Plan of Treatment Not on filedocumented as of this encounter Visit Diagnoses Diagnosis Enthesopathy of unspecified site - Prima ry Pain in limb documented in this encounter Care Teams Progressive Care Unit Registered Nurse Relationship Specialty Start Date End Date Jacques Alcantara MD PCP - General Family Medicine 12/15/12 [facility], PCP - Primary Care Clinic 3 [facility] documented as of this encounter
--- OUTSIDE RECORDS SUMMARY | 2022-02-11 11:15 | XMS_ITS | Encounter Summary ---
:1975 Author Organization [facility] Address [address] [place] [address] Care Team Providers Name Role Phone Jacques Alcantara MD Primary Care Provider Unavailable [facility] Family Phy Unavailable Unavailable Reason for Visit Reason Comments Foot pain sore on bottom Encounter Details Date Type Department Care Team Description 09/13/2013 Office Visit [facility] Jacques Alcantara, Ryan kruger of right Clinic - [facility] foot (Primary Dx) [address] [place] [address] Social History Tobacco Use Types Packs/Day Years [...] documented in this encounter Progress Notes Jacques Alcantaar MD - 09/13/2013 11:03 AM CDT SUBJECTIVE: [...] patient and/or guardian. Maria Del Rosario Keren Rosamond and/or guardian engaged in the decision making [...] wart documented in this encounter Care Teams Braid Folder Relationship Specialty Start Date End Date Jacques Alcantara MD PCP - General Family Medicine 12/15/12 [facility], PCP - Primary Care Clinic 3 09/16/17 [facility] documented as of this encounter
--- OUTSIDE RECORDS SUMMARY | 2022-02-11 11:15 | XMS_ITS | Encounter Summary ---
:1975 Author Organization [facility] Address [address] [place] [address] Care Team Providers Name Role Phone Juan Jose Baxter PA-C Primary Care Provider [facility] [phone] Reason for Referral PT/OT/ST (Routine) - Closed Specialty Diagnoses / Procedures Referred By Contact Refer red To Contact Physical Med & Rehab. Diagnoses DDD (degenerative disc disease), lumbar Bulge of lumbar disc without myelopathy Juan Jose Baxter, PHYSICIANS NEC K AND / Physical Therapy [facility] - [address] [place], [place] [address] [place] [address] [address] [address] [place] [address] Phone: Fax: Referral ID Status Reason Start Date Expiration Date Visits V isits Requested Authorized [id number] Closed Specialty 11/18/2012 05/17/2013 24 24 Services Required Comments PNBC for 12 wk rehab program for DDD lum bar with bulging lumbar disc Reason for Visit Reason Comments Back pain Encounter Details Date Type Department Care Team Description 11/18/2012 Office Visit [facility] Juan Jose Baxter Lo w back pain (Primary Dx); Clinic - [place] [facility] DDD (degenerative disc disease), lumbar; [address] Bulge of lumbar disc without myelopathy [place] [address] [place] Arm[place] [phone] Social History Tobacco Use Types Packs/Day Years [...] Clinic. Referral order faxed to them at [phone]. Patient instructed to call the registration phone numbe of [phone] ext. [phone] to register prior to obtaining [...] also like her to go through the [facility] physical therapy program. I think long-term that would help her to strengthen the back and recheck here after her physical therapy treatments. Return sooner if worse or side effects of medicine. Juan Jose Baxter PA-C /CHRIS Dictation ID: [id number] documented in this encounter Plan of Treatment [...] myelopathy documented in this encounter Care Teams Surg Rn Relationship Specialty Start Date End Date Juan Jose Baxter, PCP - General Physician Sheriffs Detective 06/29/1212/14 [facility] PCP - Primary Care Clinic 06/29/12 12/14/12 [place] [address] [place] [address] documented as of this encounter
--- OUTSIDE RECORDS SUMMARY | 2022-02-11 11:15 | XMS_ITS | Encounter Summary ---
:1975 Author Organization [facility] Address [address] [place] [address] Care Team Providers Name Role Phone Shannon Todd MD Primary Care Provider Rehab, [facility] Unavailable [phone] Reason for Visit Reason Comments Back pain low Headache Encounter Details Date Type Department Care Team Description 10/02/2010 Office Visit [facility] Jamal Lanier Headache; Clinic - [place] Guevara MD Low back pain; [address] [place] [address] Social History Tobacco Use Types Packs/Day [...] unspecified documented in this encounter Care Teams Marshmallow Maker Relationship Specialty Start Date End Date Shannon Todd MD PCP - General 09/08/09 [facility]21[facility] 09/08/09 1 [facility] [place] [address] documented as of this encounter
--- OUTSIDE RECORDS SUMMARY | 2022-02-11 11:15 | XMS_ITS | Encounter Summary ---
:1975 Author Organization [facility] Address [address] [place] [address] Care Team Providers Name Role Phone Jacques Alcantara MD Primary Care Provider Unavailable [facility] Family Phy Unavailable Unavailable Reason for Visit Reason Comments Back pain Encounter Details Date Type Department Care Team Description 12/17/2012 Office Visit [facility] Jacques Alcantara, Joselyn sks, herniated (Primary Dx); Clinic - [facility] Low back pain; [address] [facility] Depressio n with anxiety; [place].E. Bipolar disorder (HCC) [place], [place] [address] Social History Tobacco Use Types [...] unspecified documented in this encounter Care Teams Chips Screen Tender Relationship Specialty Start Date End Date Jacques Alcantara MD PCP - General Family Medicine 12/15/12 [facility], PCP - Primary Care Clinic 3 09/16/17 [facility] documented as of this encounter
--- OUTSIDE RECORDS SUMMARY | 2022-02-11 11:15 | XMS_ITS | Encounter Summary ---
:1975 Author Organization [facility] Address [address] [place] [address] Care Team Providers Name Role Phone Jamal Lanier MD Primary Care Provider Unavailable [facility] Naina Unavailable Unavailable Reason for Visit Reason Comments Nutrition counseling Encounter Details Date Type Department Care Team Description 03/27/2011 Care Coordination [facility] [address] Obesity (Primary Dx); [facility] - [address] [place] [address] [place], [place] [phone] (Work) [phone] Social History Tobacco Use Types Packs/Day Years [...] spent providing Medical Nutrition Therapy: 60 minutes AGE TIER documented in this encounter Plan of Treatment Not on filedocumented as of this encounter Visit Diagnoses Diagnosis Obesity - Primary Obesity, unspecified Elevated cholesterol Pure hypercholesterolemia documented in this encounter Care Teams Stock Driver Relationship Specialty Start Date End Date Jamal Lanier MD PCP - General 11/22/10 [facility], PCP - Primary Care Clinic 06/28/12 [facility] documented as of this encounter
--- OUTSIDE RECORDS SUMMARY | 2022-02-11 11:15 | XMS_ITS | Encounter Summary ---
:1975 Author Organization [facility] Address [address] [place] [address] Care Team Providers Name Role Phone Shannon Todd MD Primary Care Provider Rehab, [facility] Unavailable [phone] Reason for Visit Reason Comments Rash on pt's chest x3d Encounter Details Date Type Department Care Team Description 11/05/2010 Office Visit [facility] Lulu Meneses Fung al infection of Clinic - [facility] skin (Primary Dx) [address] [place] [address] Social History Tobacco Use Types Packs/Day [...] unspecified documented in this encounter Care Teams Gold Plater Relationship Specialty Start Date End Date Shannon Todd MD PCP - General 09/08/09 11/21/10 Rehab, [facility] PCP - Primary Care Clinic 09/08/[address] [place] [address] documented as of this encounter
--- OUTSIDE RECORDS SUMMARY | 2022-02-11 11:15 | XMS_ITS | Encounter Summary ---
:1975 Author Organization [facility] Address [address] [place] [address] Care Team Providers Name Role Phone Juan Jose Baxter PA-C [facility] [phone] Reason for Referral (Routine) - Closed Specialty Diagnoses / Procedures Referred By Contact Refer red To Contact Diagnoses Low back pain Juan Jose Baxter PA-C Procedures MRI SPINE LUMBAR W/O CONTRAST [address] [place], [place] [address] Referral ID Status Reason Start Date Expiration Date Visits Requ ested Visits Authorized [id number] Closed 10/28/2012 1 1 Reason for Visit (Routine) - Closed Specialty Diagnoses / Procedures Referred By Contact Refer red To Contact Diagnoses Low back pain Juan Jose Baxter PA-C Procedures MRI SPINE LUMBAR W/O CONTRAST [address] [place], [place] [address] Referral ID Status Reason Start Date Expiration Date Visits Requ ested Visits Authorized [id number] Closed 10/28/2012 1 1 Encounter Details Date Type Department Care Team Description 10/28/2012 Hospital Encounter Specialty Center Ariella ging - MRI [address] [place], [place] [address] Social History Tobacco Use Types Packs/Day Years [...] 09/30/2012 09/13/2013 mg/24 hr TD Transdermal route [id number]: Smoking DAILY - APPLY PATCH. ziprasidone hcl [...] not tried pt, can set up at [facility]. If pt wants to try the gabapentin for assisted pain control as we discussed at last [...] Lumbago documented in this encounter Care Teams Shot Peening Operator Relationship Specialty Start Date End Date Juan Jose Baxter, PCP - General Physician Head Loader 06/29/1212/14 [facility] Keyur Quinonez PCP - Primary Care Clinic 06/29/12 12/14/12 [facility] [address] [place] [address] documented as of this encounter
--- OUTSIDE RECORDS SUMMARY | 2022-02-11 11:15 | XMS_ITS | Encounter Summary ---
:1975 Author Organization [facility] Address [address] [place] [address] Care Team Providers Name Role Phone Jamal Lanier MD Primary Care Provider Unavailable [facility] Phfreddy Unavailable Unavailable Reason for Referral (Routine) - Closed Specialty Diagnoses / Procedures Referred By Contact Refer red To Contact Physical Therapy Diagnoses Low back pain Jamal Lanier [facility] AYSHA Guevara MD [address] [address] Phone: Fax: Referral ID Status Reason Start Date Expiration Date Visits Requ ested Visits Authorized [id number] Closed 01/06/2011 07/05/2011 1 1 Comments Low back pain Reason for Visit Reason Comments Referral request MRI Encounter Details Date Type Department Care Team Description 01/02/2011 Office Visit [facility] Jamal Lanier Low back pain (Primary Clinic - [facility] Guevara MD Dx) [address] [place] [address] Social History Tobacco Use Types Packs/Day [...] CDT documented in this encounter Progress Notes aJmal Lanier MD - 01/02/2011 11:13 AM CDT [...] Lumbago documented in this encounter Care Teams Thermoforming Operator Relationship Specialty Start Date End Date Jamal Lanier MD PCP - General 11/22/10 [facility], PCP - Primary Care Clinic 06/28/12 [facility] documented as of this encounter
--- OUTSIDE RECORDS SUMMARY | 2022-02-11 11:15 | XMS_ITS | Encounter Summary ---
:1975 Author Organization [facility] Address [address] [place] [address] Care Team Providers Name Role Phone Juan Jose Baxter PA-C Primary Care Provider Cristiano [facility] Unavailable [phone] Reason for Visit (Routine) - Closed Specialty Diagnoses / Procedures Referred By Contact Refer red To Contact Diagnoses Family history of ovarian cancer Abdominal pain, other specified site Juan Jose Baxter PA-C Procedures US PELVIS NO IVT-NON OB [address] [place], [place] [address] Referral ID Status Reason Start Date Expiration Date Visits Requ ested Visits Authorized [id number] Closed 06/23/2012 12/20/2012 1 1 Encounter Details Date Type Department Care Team Description 07/01/2012 Hospital Encounter Specialty Center Imaging - Ultrasound [address] [place], [place] [address] Social History Tobacco Use Types [...] Jose Baxter PA-C - 07/05/2012 6:48 AM NET LEAD ARCHITECT Quick Note: Please advise pt neg pelvic us. Ovaries normal. Pt was given the prilosec to try needs fu if stomach sxs cont. PL LEAD ARCHITECT documented in this encounter Plan of Treatment Not on filedocumented as of this encounter Procedures Procedure Name Priority Date/Time Associated Diagnosis Comme nts US PELVIS WITH Routine 07/01/2012 10:57 AM Family history of R esults for this IVT-NON OB NET LEAD ARCHITECT ovarian cancer procedure are in Abdominal pain, the results other specified site section . documented in this encounter Results US PELVIS WITH IVT-NON OB (07/01/2012 10:57 AM NET LEAD ARCHITECT) Anatomical Region Laterality Modality ABD/Pelvis Ultrasound Specimen (Source) Anatomical Collection Method Collection Time Re ceived Time Location / / Volume Laterality 07/01/2012 11:12 AM NET LEAD ARCHITECT Impressions 07/01/2012 11:13 AM NET LEAD ARCHITECT IMPRESSION: Surgically absent uterus. ??Normal ovari es. Narrative 07/01/2012 11:13 AM NET LEAD ARCHITECT EXAM: ??US PELVIS WITH IVT-NON OB ??07/01/2012 [...] site documented in this encounter Care Teams Pipe Bowl Paint Trimmer Relationship Specialty Start Date End Date Juan Jose Baxter, PCP - General Physician Recruiter Coordinator 06/29/1212/14 [facility] Keyur Quinonez PCP - Primary Care Clinic 06/29/12 12/14/[address] [place] [address] [place] [address] documented as of this encounter
--- OUTSIDE RECORDS SUMMARY | 2022-02-11 11:15 | XMS_ITS | Encounter Summary ---
:1975 Author Organization [facility] Address [address] [place] [address] Care Team Providers Name Role Phone Shannon Todd MD [facility] Un[facility] Encounter Details Date Type Department Care Team Description 09/19/2009 Surgery [facility] Poppy Kaufman ROCEDURE: LAPAROSCOPIC Operating Room MD Makayla SUPRACERVICAL [address] [place] [address] Dr Marie HYSTERECTOMY WITH LYSIS [place], [place] [address] OF ADHESIONS [phone] [place], [place] [address] (Wo rk) Surgery Details Date/Time Status Location OR Service Patient Case Class Case Type Trauma Class Case? 09/19/09 7:30 Posted [facility] Gynecology Same Day AM Surgery [...] live longer. For further assistanceplease call the [employer] Helpline at [phone] or go to their website [email or web address] Discharge Procedure Orders Notify Provider CONTACT the doctor if you have any of the following: Temperature of 101' or higher or chills.Prolonged nausea or vomiting.Increased drainage or bleeding.Increased tenderness or swelling.Pain not relieved by medication.Call [phone] if symptoms are severe or life threatening. [...] Regular Follow Up Call for an appt [phone] Provider / Clinic Phone Number? Dr Kaufman [...] go to Phase II. R: Transferred to [facility] per cart. Face to face SBAR [...] is being discharged and readmitted to another [facility] unit, you don't need to complete [...] Discharge Instructions section. a. Select the Patient Ed[employer] and [employer] hyperlinks as needed, to print educational materials [...] 09/19/2009 7:19 AM CDT S: Admitting to [facility]. B: Laparoscopic LSH/BSO A: IV started, prep done, MD explained risks and benefits to procedure, consent signed. R: Curing Oven Attendant and OR nurse here. Pt left for OR. Marleny Leija RN - 09/12/2009 3:[address] [facility] [address] Todd 09/13/09 documented in this [...] 09/19/2009 9:00 AM CDT OPERATIVE REPORT [place] [facility] [place] Physician: Poppy Kaufman MD Primary Care Physician: [facility], Shannon Todd MD Patient: Oma Encarnacion : 1975 Date of Procedure/Consult: 09/19/2009 SURGEON: Poppy Kaufman MD DIRECTOR MEETINGS SURGEON: Shannan Mason TRIM ATTACHER, SECOND TIME WORKER REPORT OF OPERATION: PREOPERATIVE DIAGNOSIS: DX: PELVIC [...] encounter Miscellaneous Notes HIM Scans - Scanned [facility] - 09/20/2009 10:43 AM CDT HIM Scans - Scanned [facility] - 09/20/2009 10:43 AM CDT HIM Scans - Scanned [facility] - 09/20/2009 10:43 AM CDT HIM Scans - Scanned [facility] - 09/20/2009 10:43 AM CDT HIM Scans - Scanned [facility] - 09/20/2009 10:41 AM CDT HIM Scans - Scanned [facility] - 09/20/2009 10:41 AM CDT [facility] Scans - Scanned [facility] - 09/20/2009 10:40 AM CDT [facility] Scans - Scanned [facility] - 09/20/2009 10:40 AM CDT [...] PM CDT) P athologist Signature SURGICAL [facility] Comment: [facility] Surgical Pathology Laboratory [address] [place] [address] ?? [phone] Fax: ?? SURGICAL PATHOLOGY REPORT Patient Name: OMA ENCARNACION Specimen No: [id number] Room No: SDS-HAT COPYIST Age: ??34 Sex: F Taken: 09/19/2009 Med. R ec. #: [id number] : 1975 Received: 09/19/2009 Physician( s): Poppy Kaufman MD Service: HAT COPYIST 3N Reported: 09/20/2009 Clinical History Pelvic pain [...] Organization Address City/State/ZIP Code Phon e Number [facility] [address] [place] [address] LABORATORY [facility] [address] [place] [address] HCG Urine (09/19/2009 6:42 AM CDT) P athologist Signature HCG URINE Negative [facility] Specimen Anatomical Collection Method Collection Time Receive d Time (Source) Location / / Volume Laterality Urine specimen 09/19/2009 6:42 AM 010 6:44 (specimen) CDT AM CDT oPppy Kaufman MD URINE ORDERABLE Performing Organization Address City/State/ZIP Code Phon e Number [facility] [address] [place] [address] [facility] documented in this encounter Visit Diagnoses [...] medication has a Blackbox Warning. Click the [facility] Formulary reference link for more information. HYDROmorphone [...] 21 documented in this encounter Care Teams Night Coordinator Relationship Specialty Start Date End Date Shannon Todd MD PCP - General 09/08/09 11/21/10 Rehab, [facility] And PCP - Primary Care Clinic 09/08/[address] [place] [address] documented as of this encounter
--- OUTSIDE RECORDS SUMMARY | 2022-02-11 11:15 | XMS_ITS | Encounter Summary ---
:1975 Author Organization [facility] Address [address] [place] [address] Care Team Providers Name Role Phone Jacques Alcantara MD Primary Care Provider Unavailable [facility] Unavailable Unavailable Reason for Referral Consultation (Routine) - Closed Specialty Diagnoses / Procedures Referred By Contact Refer red To Contact Pain Management Diagnoses Spondylolisthesis at L5-S1 level Jacques Alcantara MD [facility] [address] [place] [address] [place] [phone] Phone: Fax: Referral ID Status Reason Start Date Expiration Date Visits V isits Requested Authorized [id number] Closed Specialty 10/25/2013 04/23/2014 1 1 Services Required Comments Please call the Interventional Pain Clin ic at [facility] to schedule an appointment. [phone]. 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 This results in moderate bilateral foraminal stenosis at this level. Reason for Visit Reason Comments Follow up Warts on bottom of right foot Encounter Details Date Type Department Care Team Description 10/25/2013 Office Visit [facility] Jacques Alcantara Plantar wart , right foot (Primary Dx); Health Clinic - MD Keren Need for Tda p vaccination; [facility] Spondylolisthesis at L5-S1 l [address] [address] Social History Tobacco Use Types [...] - Plan: REFERRAL [facility] - [place] - referred pt backot interventional pain clinic and will follow up once complete. Pt to return in 3-4 weeks to evaluate right foot and make sure was able to get in with [facility]PC, sooner as needed. Options for treatment and follow-up care were reviewed with the patient and/or guardian. Maria Del Rosario Veliz [place] and/or guardian engaged in the decision making [...] Spondylolisthesis at L5-S1 Ordered: [facility] - [place] level 10/25/2013 documented as of this encounter Visit Diagnoses Diagnosis Plantar wart, right foot - Primary Plantar wart Need for Tdap vaccination Need for prophylactic vaccination with c ombined docodygjmz-glzpkbr-xnssydjzs (DTP) vaccine Spondylolisthesis at L5-S1 level Congenital [...] 1000 documented in this encounter Care Teams Stripper Printed Circuit Boards Relationship Specialty Start Date End Date Jacques Alcantara MD PCP - General Family Medicine 12/15/12 [facility] [place], PCP - Primary Care Clinic 3 09/16/17 [facility] documented as of this encounter
--- OUTSIDE RECORDS SUMMARY | 2022-02-11 11:15 | XMS_ITS | Encounter Summary ---
:[address] [facility] Address [address] [place] [address] Care Team Providers Name Role Phone Juan Jose Baxter PA-C Primary Care Provider Cristiano [facility] Unavailable [phone] Reason for Referral (Routine) - Closed Specialty Diagnoses / Procedures Referred By Contact Refer red To Contact Diagnoses Low back pain Juan Jose Baxter PA-C Procedures MRI SPINE LUMBAR W/O CONTRAST [address] [facility] Cristiano [place] [address] Referral ID Status Reason Start Date Expiration Date Visits Requ ested Visits Authorized [id number] Closed 10/28/2012 1 1 Reason for Visit Reason Comments Back pain follow up, pain is not getti ng any better Encounter Details Date Type Department Care Team Description 10/20/[address] [facility] Juan Jose Baxter Lo w back pain (Primary Clinic - [place] Dx) [address] [place], [place] [address] [place], [place] [phone] Social History Tobacco Use Types Packs/Day Years [...] - 10/20/2012 5:07 PM CDT Referred to [facility] for an MRI of the Lumbar spine. Patient given phone number to call of [phone]. Offices in [place] and [place]. documented in this encounter Progress Notes Juan [...] Juan Jose Baxter PA-C /LD Dictation ID: [id number] documented in this encounter Plan of Treatment Not on filedocumented as of this encounter Results MRI ([facility]) SPINE LUMBAR W/O CONTRAST (10/28/2012 3:52 PM [...] Lumbago documented in this encounter Care Teams Hair Assistant Relationship Specialty Start Date End Date Juan Jose Baxter, PCP - General Physician Multiskill Operator 06/29/1212/14 SONYA Keyur Quinonez PCP - Primary Care Clinic 06/29/12 12/14/12 [place] [address] [place] [address] documented as of this encounter
--- OUTSIDE RECORDS SUMMARY | 2022-02-11 11:15 | XMS_ITS | Encounter Summary ---
:1975 Author Organization [facility] Address [address] [place] [address] Care Team Providers Name Role Phone Juan Jose Baxter PA-C Primary Care Provider Cristiano [facility] Unavailable [phone] Reason for Referral (Routine) - Closed Specialty Diagnoses / Procedures Referred By Contact Refer red To Contact Diagnoses Bulging disc Juan Jose Baxter PA-C Procedures IR SPINAL-ISIDRO [address] [place], [place] [address] Referral ID Status Reason Start Date Expiration Date Visits Requ ested Visits Authorized [id number] Closed 11/01/2012 04/30/2013 1 1 Reason for Visit (Routine) - Closed Specialty Diagnoses / Procedures Referred By Contact Refer red To Contact Diagnoses Bulging disc Juan Jose Baxter PA-C Procedures IR SPINAL-ISIDRO [address] [place], [place] [address] Referral ID Status Reason Start Date Expiration Date Visits Requ ested Visits Authorized [id number] Closed 11/01/2012 04/30/2013 1 1 Encounter Details Date Type Department Care Team Description 11/03/2012 Hospital Encounter Interventional Radio logy [address] [place], [place] [address] Social History Tobacco Use Types [...] any drainage, notify the radiology department at [phone]. Please refer to your primary physician for [...] know the results. Thank you for using [facility]. D/C Instructions ScanScanned Doc - 11/05/2012 [...] 09/30/2012 09/13/2013 mg/24 hr TD Transdermal route [id number]: Smoking DAILY - APPLY PATCH. ziprasidone hcl (GEODON) Take 40 mg by mouth 0 08/03/2015 20 mg Oral Cap Twice a Day. documented as of this encounter Progress Notes Elba Cyr RN - 11/03/2012 1:58 PM CDT GO CART MECHANIC PROGRESS NOTE: P: Pain A: Pre ISIDRO [...] procedure documented in this encounter Care Teams Cardiovascular Technologist Relationship Specialty Start Date End Date Juan Jose Baxter, PCP - General Physician Group Fitness Manager 06/29/1212/14 OSNYA Keyur Serra PCP - Primary Care Clinic 06/29/12 12/14/12 [place] [address] [place], [place] [address] documented as of this encounter
--- OUTSIDE RECORDS SUMMARY | 2022-02-11 11:15 | XMS_ITS | Encounter Summary ---
:1975 Author Organization [facility] Address [address] [place] [address] Care Team Providers Name Role Phone Jacques Alcantara MD Primary Care Provider Unavailable [facility] Family Phy Unavailable Unavailable Reason for Visit Reason Comments Follow up Encounter Details Date Type Department Care Team Description 10/18/2013 Office Visit [facility] Jacques Alcantara, [facility] Clinic - [facility] foot (Primary Dx) [address] [place] [address] Social History Tobacco Use Types Packs/Day Years [...] patient and/or guardian. Maria Del Rosario Ke[place] and/or guardian engaged in the decision making process and verbalized understanding of the optionsdiscussed and agreed with the final plan. documented in this encounter Plan of Treatment Not on filedocumented as of this encounter Visit Diagnoses Diagnosis Plantar wart of right foot - Primary Plantar wart documented in this encounter Care Teams Chief Merchandising Officer Relationship Specialty Start Date End Date Jacques Alcantara MD PCP - General Family Medicine 12/15/12 [facility], PCP - Primary Care Clinic 3 09/16/17 [facility] documented as of this encounter
--- OUTSIDE RECORDS SUMMARY | 2022-02-11 11:15 | XMS_ITS | Encounter Summary ---
:1975 Author Organization [facility] Address [address] [place] [address] Care Team Providers Name Role Phone Juan Jose Baxter PA-C Primary Care Provider Cristiano [facility] Unavailable [phone] Reason for Visit Reason Comments Back injury low back pain started 2 days ago Encounter Details Date Type Department Care Team Description 09/30/2012 Office Visit [facility] Juan Jose Baxter St rain of lumbar paraspinal muscle (Primary Dx); [place] Smoking [address] [place] [address] [place] [phone] Social History Tobacco Use Types Packs/Day Years [...] Juan Jose Baxter PA-C /RV Dictation ID: [id number] Juan Jose Baxter PA-C - 09/30/2012 1:40 [...] Strain of lumbar paraspinal muscle - Ana balibr Sprain of lumbar region Smoking Tobacco use disorder documented in this encounter Care Teams Rug Setter Velvet Relationship Specialty Start Date End Date Juan Jose Baxter, PCP - General Physician Traveler Changer 06/29/1212/14 SONYA Keyur [place] PCP - Primary Care Clinic 06/29/12 12/14/12 [place] [address] [place] [address] documented as of this encounter
--- OUTSIDE RECORDS SUMMARY | 2022-02-11 11:15 | XMS_ITS | Encounter Summary ---
:1975 Author Organization [facility] Address [address] [place] [address] Care Team Providers Name Role Phone Jacques Alcantara MD Primary Care Provider Unavailable [facility] Family Phy Unavailable Unavailable Reason for Visit Reason Comments Warts right foot Encounter Details Date Type Department Care Team Description 09/29/2013 Office Visit [facility] Jacques Alcantara Pl antar wart of right Clinic - [facility] foot (Primary Dx) [address] [place] [address] Social History Tobacco Use Types Packs/Day Years [...] patient and/or guardian. Maria Del Rosario Veliz [place] and/or guardian engaged in the decision making [...] wart documented in this encounter Care Teams Bead Forming Machine Operator Relationship Specialty Start Date End Date Jacques Alcantara MD PCP - General Family Medicine 12/15/12 [facility], PCP - Primary Care Clinic 3 09/16/17 [facility] documented as of this encounter
--- OUTSIDE RECORDS SUMMARY | 2022-02-11 11:15 | XMS_ITS | Encounter Summary ---
:[address] [facility] Address [address] [place] [address] Care Team Providers Name Role Phone Shannon Todd MD [facility] [phone] Reason for Referral Specialty Diagnoses / Procedures Referred By Contact Refer red To Contact Poppy Kaufman MD [address] [place] [address] Dr Marie [address] [place] [address] Referral ID Status Reason Start Date Expiration Date Visits Requ ested Visits Authorized Question Answer Provider / Clinic Phone Number? Dr Kaufman Specify time frame for follow up? two weeks Comments Call for an appt [phone] Encounter Details Date Type Department Care Team Description 09/19/2009 Hospital Encounter Patient Care Center Poppy Kaufman [address] [facility] MD ODALIS Melo [place] [address] [place] [address] Dr Marie [phone] [place] [address] (Wo rk) Social History Tobacco Use Types [...] live longer. For further assistanceplease call the [facility] Helpline at [phone])-230-DMKJ or go to their website [email or web address]. Discharge Procedure Orders Notify Provider CONTACT the doctor if you have any of the following: Temperature of 101' or higher or chills.Prolonged nausea or vomiting.Increased drainage or bleeding.Increased tenderness or swelling.Pain not relieved by medication.Call [phone] if symptoms are severe or life threatening. [...] Regular Follow Up Call for an appt [phone] Provider / Clinic Phone Number? Dr Kaufman [...] go to Phase II. R: Transferred to [facility] per cart. Face to face [...] is being discharged and readmitted to another [facility] unit, you don't need to complete [...] Discharge Instructions section. a. Select the Patient Ed/MedShapeedix and Storemates hyperlinks as needed, to print educational materials [...] 09/19/2009 7:19 AM CDT S: Admitting to [facility]. B: Laparoscopic LSH/BSO A: IV started, prep done, MD explained risks and benefits to procedure, consent signed. R: Surface Grinding Machine Hand and OR nurse here. Pt left for OR. Marleny Leija RN - 09/12/2009 3:06 PM CDT [facility] Dr. Todd 09/13/09 documented in [...] 09/19/2009 9:00 AM CDT OPERATIVE REPORT Hospital: [facility] [place] [place] Reporting Physician: Poppy Kaufman MD Primary Care Physician: [facility], Shannon Todd MD Patient: Oma Encarnacion : 1975 Date of Procedure/Consult: 09/19/2009 SURGEON: Poppy Kaufman MD STEAM PLANT OPERATOR SURGEON: Shannan Mason MERCHANDISE FOR RESALE PURCHASING AGENT, PATTERN PUNCHER REPORT OF OPERATION: PREOPERATIVE DIAGNOSIS: DX: PELVIC [...] encounter Miscellaneous Notes HIM Scans - Scanned [facility] - 09/20/2009 10:43 AM CDT HIM Scans - Scanned [facility] - 09/20/2009 10:43 AM CDT HIM Scans - Scanned [facility] - 09/20/2009 10:43 AM CDT HIM Scans - Scanned [facility] - 09/20/2009 10:43 AM CDT HIM Scans - Scanned [facility] - 09/20/2009 10:41 AM CDT HIM Scans - Scanned [facility] - 09/20/2009 10:41 AM CDT HIM Scans - Scanned [facility] - 09/20/2009 10:40 AM CDT HIM Scans - Scanned [facility] - 09/20/2009 10:40 AM CDT documented in [...] (09/19/2009 4:27 PM CDT) athologist Signature [facility] Comment: [facility] [address] [place] [address] ?? [phone] Fax: ?? SURGICAL PATHOLOGY REPORT Patient Name: OMA ENCARNACION Specimen No: [id number] Room No: SDS-PACKAGING MACHINE SUPPLIES DISTRIBUTOR Age: ??34 Sex: F Taken: 09/19/2009 Med. R ec. #: [id number] : 1975 Received: 09/19/2009 Physician( s): Poppy Kaufman MD Service: PACKAGING MACHINE SUPPLIES DISTRIBUTOR 3N Reported: 09/20/2009 Clinical History Pelvic pain [...] Organization Address City/State/ZIP Code Phon e Number [facility] [address] [place] [address] LABORATORY [facility] [address] [place] [address] HCG Urine (09/19/2009 6:42 AM CDT) P athologist Signature HCG URINE Negative [facility] Specimen Anatomical Collection Method Collection Time Receive d Time (Source) Location / / Volume Laterality Urine specimen 09/19/2009 6:42 AM 010 6:44 (specimen) CDT AM CDT Poppy Kaufman MD URINE ORDERABLE Performing Organization Address City/State/ZIP Code Phon e Number [facility] [address] [place] [address] [facility] documented in this encounter Visit Diagnoses Not [...] medication has a Blackbox Warning. Click the [facility] Formulary reference link for more information. [...] 21 documented in this encounter Care Teams Preschool Assistant Director Relationship Specialty Start Date End Date Shannon Todd MD PCP - General 09/08/09 11/21/10 Rehab, [facility] PCP - Primary Care Clinic 09/08/[address] [place] [address] documented as of this encounter
--- OUTSIDE RECORDS SUMMARY | 2022-02-11 11:15 | XMS_ITS | Encounter Summary ---
:1975 Author Organization [facility] Address [address] [place] [address] Care Team Providers Name Role Phone Jamal Lanier MD Primary Care Provider Unavailable [facility], [facility] Unavailable Unavailable Reason for Referral (Routine) - Closed Specialty Diagnoses / Procedures Referred By Contact Refer red To Contact Diagnoses Abdominal pain, other specified site Juan Jose Baxter PA-C Procedures AST (SGOT) [address] [place], [place] [address] Referral ID Status Reason Start Date Expiration Date Visits Requ ested Visits Authorized [id number] Closed 06/23/2012 12/20/2012 1 1 IAL NEEDS BABYSITTER (Routine) - Closed Specialty Diagnoses / Procedures Referred By Contact Refer red To Contact Diagnoses Abdominal pain, other specified site Juan Jose Baxter PA-C Procedures AMYLASE, SERUM [address] [place], [place] [address] Referral ID Status Reason Start Date Expiration Date Visits Requ ested Visits Authorized [id number] Closed 06/23/2012 12/20/2012 1 1 IAL NEEDS BABYSITTER (Routine) - Closed Specialty Diagnoses / Procedures Referred By Contact Refer red To Contact Diagnoses Annual physical exam Preventative health care Juan Jose Baxter PA-C Procedures LIPID PROFILE CASCADE [address] [place], [place] [address] Referral ID Status Reason Start Date Expiration Date Visits Requ ested Visits Authorized [id number] Closed 06/23/2012 12/20/2012 1 1 IAL NEEDS BABYSITTER (Routine) - Closed Specialty Diagnoses / Procedures Referred By Contact Refer red To Contact Diagnoses Abdominal pain, other specified site Juan Jose Baxter PA-C Procedures BASIC METAB PROFILE [address] [place], [place] [address] Referral ID Status Reason Start Date Expiration Date Visits Requ ested Visits Authorized [id number] Closed 06/23/2012 12/20/2012 1 1 IAL NEEDS BABYSITTER Reason for Visit Reason Comments Physical with breast exam/ no pap Encounter Details Date Type Department Care Team Description 06/23/2012 Office Visit [facility] Juan Jose Baxter, An nual physical exam; Clinic - [facility] Preventative health care; [address] Bronchospasm; [place], [place] [address] [place], [place] Family history of ovarian ca ncer; [phone] Abdominal pain, other specified site; [phone] Bipolar disorde r (HCC); (Work) RLS (restless [...] Comments Blood Pressure 118/70 06/23/2012 1:19 PM SPECIAL NEEDS BABYSITTER Pulse 64 06/23/2012 1:19 PM SPECIAL NEEDS BABYSITTER Temperature - - Respiratory Rate 20 06/23/2012 1:19 PM SPECIAL NEEDS BABYSITTER Oxygen Saturation - - Inhaled Oxygen Concentration - - Weight 82.6 kg (182 lb) 06/23/2012 1:19 PM SPECIAL NEEDS BABYSITTER Height 158.8 cm (5' 2.5) 06/23/2012 1:19 PM SPECIAL NEEDS BABYSITTER Body Mass Index 32.76 06/23/2012 1:19 PM SPECIAL NEEDS BABYSITTER documented in this encounter Patient Instructions Patient InstructionsSumin Coffman RN - 06/23/2012 1:55 PM CST Referred to [facility] for an Ultrasound of the Pelvis. Patient given phone number to call of [phone]. Offices in [facility] and [place]. Patient will call to schedule the ultrasound. IAL NEEDS BABYSITTER documented in this encounter Progress Notes Juan Jose Baxter PA-C - 2012 7:15 AM SPECIAL NEEDS BABYSITTER Quick Note: Please advise nl labs, will get back to pt when us report back. pL IAL NEEDS BABYSITTER Jill Coffman RN - 06/23/2012 1:32 PM [...] patterns. Has appt to see psych at [facility] soon. PAST MEDICAL HISTORY: Patient Active Problem [...] visit: Annual physical exam - Lipid Profile Perry - fasting - UA ,DIP ONLY - In Clinic Preventative health care - Lipid Profile Perry - fasting Bronchospasm - albuterol 90 mcg/actuation Inhl Aerosol; 2 Puffs by Inhalation route every 4 (four) hours as needed. Family history of ovarian cancer - Cancel: US (CLINIC) PELVIS NO IVT-NON OB; Future - US ([facility]) PELVIS NO IVT-NON OB; Future Abdominal pain, other specified site - BASIC METAB PROFILE - UA ,DIP ONLY - In Clinic - Cancel: US ([facility]) PELVIS NO IVT-NON OB; Future - AMYLASE, SERUM - AST - omeprazole (PRILOSEC) 20 mg Oral CpDR; Take 1 Cap by mouth Once Daily. - US ([facility]) PELVIS NO IVT-NON OB; Future Bipolar disorder [...] time of 15 min spent on cc. IAL NEEDS BABYSITTER documented in this encounter Plan of Treatment Not on filedocumented as of this encounter Procedures Procedure Name Priority Date/Time Associated Diagnosis Comme nts UA DIP ONLY OP Routine 06/23/2012 1:54 PM Annual physic al exam Results for this ([place] AND SPECIAL NEEDS BABYSITTER Abdominal pain, procedure a re in [facility] USE other specified site t he results ONLY) section. LIPID PROFILE Routine 06/23/2012 1:54 PM Annual physic al exam Results for this CASCADE SPECIAL NEEDS BABYSITTER Preventative health procedur e are in care the results section. AST (SGOT) Routine 06/23/2012 1:54 PM Abdominal pain, Result s for this SPECIAL NEEDS BABYSITTER other specified site procedu re are in the results section. BASIC METAB PROFILE Routine 06/23/2012 1:54 PM Abdominal pain, Results for this SPECIAL NEEDS BABYSITTER other specified site procedu re are in the results section. AMYLASE, SERUM Routine 06/23/2012 1:54 PM Abdominal pain, Resu lts for this SPECIAL NEEDS BABYSITTER other specified site procedu re are in the results section. documented in this encounter Results AST (SGOT) (06/23/2012 1:54 PM SPECIAL NEEDS BABYSITTER) P athologist Signature AST (SGOT) 14 12 - 45 06/23/2012 [facility] IU/L 10:24 PM SPECIAL NEEDS BABYSITTER LABORATORY Specimen Anatomical Collection Method Collection Time Receive d Time (Source) Location / / Volume Laterality Serum specimen VENOUS BLOOD 06/23/2012 1:54 PM 013 9:38 (specimen) SPECIMEN / Unknown SPECIAL NEEDS BABYSITTER PM SPECIAL NEEDS BABYSITTER Juan Jose Baxter PA-C CHEMISTRY ORDERABLE Performing Organization Address City/State/ZIP Code Phon e Number [facility] [address] [address] LABORATORY [facility] [address] [place] [address] (ABNORMAL) AMYLASE, SERUM (06/23/2012 1:54 PM SPECIAL NEEDS BABYSITTER) P athologist Signature AMYLASE 19 (L) 29 - 109 06/23/2012 [facility] IU/L 10:24 PM SPECIAL NEEDS BABYSITTER LABORATORY Specimen Anatomical Collection Method Collection Time Receive d Time (Source) Location / / Volume Laterality Serum specimen VENOUS BLOOD 06/23/2012 1:54 PM 013 9:38 (specimen) SPECIMEN / Unknown SPECIAL NEEDS BABYSITTER PM SPECIAL NEEDS BABYSITTER Juan Jose Baxter PA-C CHEMISTRY ORDERABLE Performing Organization Address City/State/ZIP Code Phon e Number [facility] [address] [place] [address] LABORATORY [facility] [address] [place], [place] [address] UA DIP ONLY OP (06/23/2012 1:54 PM SPECIAL NEEDS BABYSITTER) Patholo gist Method Time Signature GLUCOSE, UA [...] URINE SPECIMEN / 06/23/2012 1:54 PM Unknown SPECIAL NEEDS BABYSITTER Juan Jose Baxter PA-C URINE ORDERABLE Performing Organization Address City/State/ZIP Code Phon e Number [facility] [address] [facility] [place] [facility] [address] [facility] [address] [place] [address] [place] [phone] [address] (ABNORMAL) LIPID PROFILE CASCADE (06/23/2012 1:54 PM SPECIAL NEEDS BABYSITTER) Patholo gist Method Time Signature SPECIMEN TYPE Fasting 06/23/2012 [facility] 10:20 PM SPECIAL NEEDS BABYSITTER LABORATORY CHOLESTEROL 155 <200 06/23/2012 [facility] mg/dL 10:20 PM SPECIAL NEEDS BABYSITTER LABORATORY TRIGLYCERIDES 113 <150 06/23/2012 [facility] PROFILE mg/dL 10:20 PM SPECIAL NEEDS BABYSITTER LABORATORY LDL CHOL, CALC 97 <=100 06/23/2012 [facility] mg/dL 10:20 PM SPECIAL NEEDS BABYSITTER LABORATORY HDL CHOLESTEROL 35 (L) 40 - 60 06/23/2012 [facility] L mg/dL 10:20 PM SPECIAL NEEDS BABYSITTER LABORATORY CHOL/HDL RATIO 4.4 0.0 - 4.9 06/23/2012 [facility] 10:20 PM SPECIAL NEEDS BABYSITTER LABORATORY Specimen Anatomical Collection Method Collection Time Receive d Time (Source) Location / / Volume Laterality Serum specimen VENOUS BLOOD 06/23/2012 1:54 PM 013 9:38 (specimen) SPECIMEN / Unknown SPECIAL NEEDS BABYSITTER PM SPECIAL NEEDS BABYSITTER Juan Jose Baxter PA-C CHEMISTRY ORDERABLE Performing Organization Address City/State/ZIP Code Phon e Number [facility] [address] [facility] [place] [address] LABORATORY [facility] [address] [place], [place] [address] BASIC METAB PROFILE (06/23/2012 1:54 PM SPECIAL NEEDS BABYSITTER) P athologist Signature SODIUM 138 133 - 144 06/23/2012 [facility] mMol/L 10:07 PM SPECIAL NEEDS BABYSITTER LABORATORY POTASSIUM 3.8 3.5 - 5.0 06/23/2012 [facility] mMol/L 10:07 PM SPECIAL NEEDS BABYSITTER LABORATORY CHLORIDE 108 99 - 111 06/23/2012 [facility] mMol/L 10:07 PM SPECIAL NEEDS BABYSITTER LABORATORY CARBON DIOXIDE 23.0 21.0 - 06/23/2012 [facility] 30.0 10:07 PM SPECIAL NEEDS BABYSITTER LABORATORY mMol/L BUN (UREA 7 6 - 24 06/23/2012 [facility] NITRO) mg/dL 10:07 PM SPECIAL NEEDS BABYSITTER LABORATORY CREATININE 0.94 0.40 - 06/23/2012 [facility] 1.10 mg/dL 10:07 PM SPECIAL NEEDS BABYSITTER LABORATORY EST GFR >60 >60 mL/min 06/23/2012 [facility] (CKD-EPI) 10:07 PM SPECIAL NEEDS BABYSITTER LABORATORY EST GFR IF >60 >60 mL/min 06/23/2012 [facility] AM 10:07 PM SPECIAL NEEDS BABYSITTER LABORATORY GLUCOSE 85 60 - 100 06/23/2012 [facility] mg/dL 10:07 PM SPECIAL NEEDS BABYSITTER LABORATORY CALCIUM, SERUM 9.6 8.6 - 10.2 06/23/2012 [facility] mg/dL 10:07 PM SPECIAL NEEDS BABYSITTER LABORATORY ANION GAP 7.0 0.0 - 15.0 06/23/2012 [facility] mMol/L 10:07 PM SPECIAL NEEDS BABYSITTER LABORATORY Specimen Anatomical Collection Method Collection Time Receive d Time (Source) Location / / Volume Laterality Serum specimen VENOUS BLOOD 06/23/2012 1:54 PM 013 9:38 (specimen) SPECIMEN / Unknown SPECIAL NEEDS BABYSITTER PM SPECIAL NEEDS BABYSITTER Juan Jose Baxter PA-C CHEMISTRY ORDERABLE Performing Organization Address City/State/ZIP Code Phon e Number [facility] [address] [place] [address] [phone] LABORAT[facility] [address] [place], [place] [address] documented in this encounter Visit [...] disorder documented in this encounter Care Teams Home Assessment Nurse Relationship Specialty Start Date End Date Jamal Lanier MD PCP - General 11/22/10 [facility], PCP - Primary Care Clinic 06/28/12 [facility] Naina documented as of this encounter
--- OUTSIDE RECORDS SUMMARY | 2022-02-11 11:15 | XMS_ITS | Encounter Summary ---
:1975 Author Organization [facility] Address [address] [place] [address] Care Team Providers Name Role Phone Jamal Lanier MD Primary Care Provider Unavailable [facility], [facility] Unavailable Unavailable Reason for Referral (Routine) - Closed Specialty Diagnoses / Procedures Referred By Contact Refer red To Contact Diagnoses Multiple allergies Lulu Meneses MD Procedures RESPIRATORY ALLERGY PROFILE [address] [place] [address] Referral ID Status Reason Start Date Expiration Date Visits Requ ested Visits Authorized [id number] Closed 03/19/2011 09/15/2011 1 1 ER FINISHER (Routine) - Closed Specialty Diagnoses / Procedures Referred By Contact Refer red To Contact Nutrition Diagnoses Obesity Lulu Meneses MD [facility] NUTRITIONAL [address] [place] [place], [place] [address] [address] [place] [address] Phone: Referral ID Status Reason Start Date Expiration Date Visits V isits Requested Authorized [id number] Closed Specialty 03/19/2011 09/15/2011 1 1 Services Required ER FINISHER (Routine) - Closed Specialty Diagnoses / Procedures Referred By Contact Refer red To Contact Diagnoses Fatigue Lulu Meneses MD Procedures THYROID CASCADE [address] [place] [address] Referral ID Status Reason Start Date Expiration Date Visits Requ ested Visits Authorized [id number] Closed 03/19/2011 09/15/2011 1 1 ER FINISHER Reason for Visit Reason Comments Physical Encounter Details Date Type Department Care Team Description 03/19/2011 Office Visit [facility] Lulu Meneses Annu al physical exam (Primary Dx); Clinic - [facility] Fatigue; [address] [place] [address] Snores; Gregory Obesity; [place], [place] [address] Multiple allergies [phone] Social History Tobacco Use Types Packs/Day Years [...] Comments Blood Pressure 128/82 03/19/2011 12:36 PM CUTTER FINISHER Pulse 80 03/19/2011 12:33 PM CUTTER FINISHER Temperature 36.4 ??C (97.6 ??F) 03/19/2011 12:33 PM CUTTER FINISHER Respiratory Rate - - Oxygen Saturation - - Inhaled Oxygen Concentration - - Weight 92.5 kg (204 lb) 03/19/2011 12:33 PM CUTTER FINISHER Height 156.2 cm (5' 1.5) 03/19/2011 12:33 PM CUTTER FINISHER Body Mass Index 37.92 03/19/2011 12:33 PM CUTTER FINISHER documented in this encounter Patient Instructions Patient Smyjjipbsvvr74/09/2011 1:01 PM CUTTER FINISHER 1. Return in two months for a recheck. 2. Meet with foundry metallurgist, talk about diet. 3. Increase walking to 60 minutes 7 days a week. ER FINISHER documented in this encounter Progress Notes Lulu [...] or bloody stools. No urinary tract symptoms. 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 - LIPID PROFILE CASCADE FASTING - Respiratory Allergy Profile return annually or prn ER FINISHER documented in this encounter Nursing Notes 03/19/2011 12:30 PM CST >> DAFNE BECERRIL Wed Mar 19, 2011 12:32 PM Patient is here for a fasting physical with PAP. documented in this encounter Plan of Treatment Scheduled Referrals Name Type Priority Associated Diagnoses Order S chedule REFERRAL ICU STAFF NURSE Referral Routine Obesity Ordere d: 03/19/2011 documented as of this encounter Procedures Procedure Name Priority Date/Time Associated Comments Diagnosis RESPIRATORY ALLERGY STAT 03/19/2011 1:12 PM Re sults for this PROFILE CUTTER FINISHER procedure are i n the results section. RESPIRATORY ALLERGY Routine 03/19/2011 1:12 PM Multiple allerg ies Results for this PROFILE CUTTER FINISHER procedure are i n the results section. LIPID PROFILE CASCADE STAT 03/19/2011 1:12 PM Results for this FASTING CUTTER FINISHER procedure are i n the results section. THYROID CASCADE Routine 03/19/2011 1:12 PM Fatigue Result s for this CUTTER FINISHER procedure are i n the results section. CBC Routine 03/19/2011 12:33 Annual physical Results for this (HGB,HCT,WBC,RBC,PLAT PM CUTTER FINISHER exam proced ure are in ELET) the results section. GLUCOSE METER OP Routine 03/19/2011 12:32 Annual physical Resu lts for this PM CUTTER FINISHER exam procedure are i n the results section. documented in this encounter Results (ABNORMAL) RESPIRATORY ALLERGY PROFILE (03/19/2011 1:12 PM CUTTER FINISHER) [facility] gist Method Time Signature DUST: D. FARINAE <0.35 <=0.35 [facility] L kU/L LABORATORY DUST: D. <0.35 <=0.35 [facility] PTERONYSSINUS kU/L LABORATORY ANIMAL: CAT 0.99 (H) <=0.35 [facility] kU/L LABORATORY ANIMAL: DOG <0.35 <=0.35 [facility] kU/L LABORATORY ENVIR: COCKROACH <0.35 <=0.35 [facility] MOLD: ALTERNARIA <0.35 <=0.35 [facility] ALTERNATA kU/L LABORATORY MOLD: <0.35 <=0.35 [facility] ASPERGILLIUS kU/L LABORATORY FUMIGATUS MOLD: <0.35 <=0.35 [facility] CLADOSPORIUM kU/L LABORATORY HERBARUM TREE: BIRCH, <0.35 <=0.35 [facility] COMMON SILVER kU/L LABORATORY TREE: ELM <0.35 <=0.35 [facility] kU/L LABORATORY TREE: MAPLE, BOX <0.35 <=0.35 [facility] L ELDER kU/L LABORATORY TREE: [place] <0.35 <=0.35 [facility] kU/L LABORATORY TREE: RADHA, WHITE <0.35 <=0.35 [facility] kU/L LABORATORY TREE: [place] <0.35 <=0.35 [facility] L kU/L LABORATORY GRASS: [place] 1.21 (H) <=0.35 [facility] BLUE/ kU/L LABORATORY GRASS: [place] 1.51 (H) <=0.35 [facility] ([place]) kU/L LABORATORY GRASS: PATRICIA 0.97 (H) <=0.35 [facility] kU/L LABORATORY WEED: RAGWEED, <0.35 <=0.35 [facility] COMMON kU/L LABORATORY IGE 86.3 <=99.9 [facility] kU/L LABORATORY Comment: REFERENCE VALUES: IGE, KU/L ??Reference Ranges not established for ??children 2 - 10 yrs of age. Specimen (Source) Anatomical Collection Method Collection Time Re ceived Time Location / / Volume Laterality 03/19/2011 1:12 PM CUTTER FINISHER Lulu Meneses MD CHEMISTRY ORDERABLE Performing Organization Address City/State/ZIP Code Phon e Number [facility] [address] [place] [place] [address] [phone] LABORATORY [facility] [address] [place], [place] [address] (ABNORMAL) LIPID PROFILE CASCADE FASTING (03/19/2011 1:12 PM CUTTER FINISHER) [facility] gist Method Time Signature SPECIMEN TYPE FASTING [facility] LABORATORY CHOLESTEROL 214 (H) <=199 [facility] mg/dL LABORATORY TRIGLYCERIDES 112 <=149 [facility] PROFILE mg/dL LABORATORY HDL CHOLESTEROL 42 40 - 60 [facility] mg/dL LABORATORY LDL CHOL, CALC 150 (H) <=100 [facility] mg/dL LABORATORY CHOL/HDL RATIO 5.1 (H) <=4.9 [facility] LABORATORY Comment: LDL CHOLESTEROL REFERENCE RANGES: ??(FOR PATIENTS W/O HEART DISEASE) ?<100 MG/DL = Optimal ?? 100-159 MG/DL = Borderline High ?>160 MG/DL = High Specimen (Source) Anatomical Collection Method Collection Time Re ceived Time Location / / Volume Laterality 03/19/2011 1:12 PM CUTTER FINISHER Lulu Meneses MD CHEMISTRY ORDERABLE Performing Organization Address City/State/ZIP Code Phon e Number [facility] [address] [place] [place] [address] LABORATORY [facility] LABORATORY [address] [place] [address] (ABNORMAL) RESPIRATORY ALLERGY PROFILE (03/19/2011 1:12 PM CUTTER FINISHER) [facility] Method Time Signature DUST: D. FARINAE <0.35 <=0.35 [facility] L kU/L LABORATORY DUST: D. <0.35 <=0.35 [facility] PTERONYSSINUS kU/L LABORATORY ANIMAL: CAT 0.99 (H) <=0.35 [facility] kU/L LABORATORY ANIMAL: DOG <0.35 <=0.35 [facility] kU/L LABORATORY ENVIR: COCKROACH <0.35 <=0.35 [facility] L kU/L LABORATORY MOLD: ALTERNARIA <0.35 <=0.35 [facility] L ALTERNATA kU/L LABORATORY MOLD: <0.35 <=0.35 [facility] ASPERGILLIUS kU/L LABORATORY FUMIGATUS MOLD: <0.35 <=0.35 [facility] CLADOSPORIUM kU/L LABORATORY HERBARUM TREE: BIRCH, <0.35 <=0.35 [facility] COMMON SILVER kU/L LABORATORY TREE: ELM <0.35 <=0.35 [facility] kU/L LABORATORY TREE: MAPLE, BOX <0.35 <=0.35 [facility] L ELDER kU/L LABORATORY TREE: [place]AK <0.35 <=0.35 [facility] kU/L LABORATORY TREE: RADHA, WHITE <0.35 <=0.35 [facility] L kU/L LABORATORY TREE: [place] <0.35 <=0.35 [facility] L kU/L LABORATORY GRASS: [place] 1.21 (H) <=0.35 [facility] BLUE/ kU/L LABORATORY GRASS: [place] 1.51 (H) <=0.35 [facility] ([place]) kU/L LABORATORY GRASS: PATRICIA 0.97 (H) <=0.35 [facility] kU/L LABORATORY WEED: RAGWEED, <0.35 <=0.35 [facility] COMMON kU/L LABORATORY IGE 86.3 <=99.9 [facility] kU/L LABORATORY Comment: REFERENCE VALUES: IGE, KU/L ??Reference Ranges not established for ??children 2 - 10 yrs of age. Specimen (Source) Anatomical Collection Method Collection Time Re ceived Time Location / / Volume Laterality BLOOD SPECIMEN / 03/19/2011 1:12 PM Unknown CUTTER FINISHER Lulu Meneses MD CHEMISTRY ORDERABLE Performing Organization Address City/State/ZIP Code Phon e Number [facility] [address] [place] [address] LABORATORY [facility] [address] [place] [address] THYROID CASCADE (03/19/2011 1:12 PM CUTTER FINISHER) athologist Signature TSH CASCADE 2.91 0.45 - 4.50 [facility] uIU/mL LABORATORY TSH COMMENT [facility] LABORATORY Comment: Euthyroid. No further testing r ecommended. Specimen (Source) Anatomical Collection Method Collection Time Re ceived Time Location / / Volume Laterality Blood specimen BLOOD SPECIMEN / 03/19/2011 1:12 PM (specimen) Unknown CUTTER FINISHER Lulu Meneses MD CHEMISTRY ORDERABLE Performing Organization Address City/[facility]/ZIP Code Phon e Number [facility] [address] [place] [address] [address] CBC (HGB,HCT,WBC,RBC,PLATELET) (03/19/2011 12:33 PM CUTTER FINISHER) athologist Signature WBC OP 7.9 4.0 - 10.8 [facility] K/uL [facility] LYMPHOCYTES % OP 34.6 20 - 40 % [facility] MID % OP 4.8 0 - 20 % [facility] PMN % OP 60.6 50 - 75 % [facility] RBC OP 4.96 4.2 - [...] SPECIMEN / 03/19/2011 12:33 (specimen) Unknown PM CUTTER FINISHER Lulu Meneses MD HEMATOLOGY ORDERABLE Performing Organization Address City/State/ZIP Code Phon e Number [facility] [address] [place] [address] - [address] [address] GLUCOSE METER OP (03/19/2011 12:32 PM CUTTER FINISHER) P athologist Signature GLUCOSE WB 90 60 - 100 [facility] METER mg/dL [facility] Specimen (Source) Anatomical Collection Method Collection Time Re ceived Time Location / / Volume Laterality Blood specimen BLOOD SPECIMEN / 03/19/2011 12:32 (specimen) Unknown PM CUTTER FINISHER Lulu Meneses MD CHEMISTRY ORDERABLE Performing Organization Address City/[facility]/ZIP [facility] e Number [facility] [address] [place] [address] - [address] [place] [address] documented in this encounter Visit Diagnoses Diagnosis Annual physical exam - Primary Routine general medical examination at a health care facility Fatigue Other malaise and fatigue Snores Other dyspnea and respiratory abnormalit y Obesity Obesity, unspecified Multiple allergies Other allergy, other than to medicinal a gents documented in this encounter Care Teams Paperhanger And Painter Relationship Specialty Start Date End Date Jamal Lanier MD PCP - General 11/22/10 [facility], PCP - Primary Care Clinic 06/28/12 [facility] Phy documented as of this encounter
--- OUTSIDE RECORDS SUMMARY | 2022-02-11 11:15 | XMS_ITS | Encounter Summary ---
:1975 Author Organization [facility] Address [address] [place] [id number] Care Team Providers Name Role Phone Shannon Todd MD Primary Care Provider Rehab, [facility] And Unavailable [phone] Reason for Visit Reason Comments Back pain low Encounter Details Date Type Department Care Team Description 11/19/2010 Office Visit [facility] Jamal Lanier Low back pain (Primary Clinic - Lashell Guevara MD Dx) [address] [place] [address] Social History Tobacco Use Types Packs/Day Years [...] Lumbago documented in this encounter Care Teams Kennel Supervisor Relationship Specialty Start Date End Date Shannon Todd MD PCP - General 09/08/09 11/21/10 Rehab, [facility] And PCP - Primary Care Clinic 09/08/09 [address] [place] [address] documented as of this encounter
--- OUTSIDE RECORDS SUMMARY | 2022-02-11 11:17 | XMS_ITS | Clinical Summary ---
:1975 Author Organization [email or web address] [place] [address] Care Team Providers Name Role Phone Pcp, [...] Outs chavo Order (01/08/22, Ede Glass PA-C) from Last 3 Months Social History Tobacco [...] 9-49 01/09/2022 Medical Devices Implanted Type Area Soil Fertility Specialist Device Shelf Model / Identifier Expiration Serial / Date Lot Plate Lmbr [employer]-L Stand Alone Lock - [id number] N/A: Lumba r Elsa Spine [id number] / Implanted: Qty: 1 on 08/21/2015 by Gavin Marks MD at [facility] Vertebrae / Results Not on filefrom Last 3 Months Insurance Payer Benefit Plan / Subscriber ID Effective Dates Phone Addre ss Type Group [place] [id number] 2009-Present [address] [address] [place] [address] Advance Directives Latest Code Status on File Code Status Date Activated Date Inactivated Comments Full Code 08/21/2015 6:50 AM 08/23/2015 2:54 PM Code Status Discussion: Not Discussed Full Code 08/17/2015 1:51 PM 08/21/2015 6:50 AM Code Status Discussion: Not Discussed Care Teams Mattress Filling Machine Tender Relationship Specialty Start Date End Date Pcp, No PCP - General 07/04/20 .
[2022-02-11 22:04] LABS: Glucose* 246 mg/dL (60-115)
[2022-02-13 13:13] LABS: Rheumatoid Factor <10 IU/mL (0-14)
[2022-02-13 16:39] LABS: Anti-Nuclear Ab(ANA)IgG ELISA None Detected (None Detected)
== END 2022-02-11 11:08 | disposition home or self-care (01) ==
PROVIDERS: PCP Family Medicine; Visit Provider Otolaryngology
DX: R42 Dizziness and giddiness (principal)
CPT/HCPCS: 82947; 84443; 86039; 86431; 86618

== ENCOUNTER 2024-06-09 12:15 | Outpatient (CLI) | payer MEDICAID, SELFPAY ==
[2024-06-09 12:23] VITALS: BP 118/87; PULSE 115; RESP 16; O2SAT 98
--- NOTE | 2024-06-09 14:47 | P.GSCN_ITS ---
History of Present Illness Consult details Date Seen: 06/09/24 Consult date: 06/10/24 Narrative: Patient presents for evaluation of paracentesis. She was recently hospitalized at [facility] with new onset ascites and evidence of peritoneal carcinomatosis. Patient underwent diagnostic and therapeutic paracentesis on 05/27 with removal of 5900 mL. Cytology was consistent with metastatic carcinoma. She then underwent additional therapeutic paracentesis on 05/29, 06/02, 06/03. On chart review she had small amounts removed at each appointment. During her hospitalization there was also evidence of bilateral pulmonary emboli and she has been maintained on Xarelto, 15 mg b.i.d.. She last took her Xarelto yesterday evening. She is scheduled to see Oncology on 06/17/2024. She does not currently have a primary care provider, but is looking to establish care somewhere. Currently she feels like her abdomen is distended, but not like it was during her hospital stay. She does report some abdominal pain but denies any shortness of breath. She has been able to eat a regular diet, but overall has a poor appetite. She had a paracentesis on Tuesday 06/06 at [place], unsure on amount of fluid removed. She comes today mainly because she was under the impression that she needs the fluid removed twice a week. Her abdominal surgical history includes a partial hysterectomy, 2 C sections and a back surgery where it sounds like they want through the abdomen. Review of Systems Status of ROS: Reports: 6 or more systems reviewed and unremarkable except as noted in History and below Const: Reports: change in weight, fatigue and malaise GI: Reports: abdominal pain Endo: Reports: fatigue [facility] Medical History (Updated 06/10/24 @ 10:22 by Aura Medrano MD) Restless legs syndrome ?G25.81 - Restless legs syndrome (ICD-10) Prediabetes ?R73.03 - Prediabetes (ICD-10) Morbid obesity with body mass index (BMI) of 40.0 to 44.9 in adult ?E66.01 - Morbid (severe) obesity due to excess calories (ICD-10) ?Z68.41 - Body mass index [BMI] 40.0-44.9, adult (ICD-10) Bipolar I disorder ?F31.9 - Bipolar disorder, unspecified (ICD-10) Surgical History (Updated 11/20/21 @ 08:32 by Sotero Radford) History of lumbar fusion (2016) ?Z98.1 - Arthrodesis status (ICD-10) History of foot surgery (2013) ?Z98.890 - Other specified postprocedural states (ICD-10) History of 2 sections (1997) ?Z98.891 - History of uterine scar from previous surgery (ICD-10) Family History (Updated 11/20/21 @ 08:33 by Sotero Radford) Family/Other Mental disorder Maternal Grandmother Colon cancer, Onset Age: 68 Social History (Updated 11/08/21 @ 13:41 by Shayy Nuñez) Narrative: 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, 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) Learning disability Single, soc sec disability learning/reading disability since 2002, 2 kids Tobacco abuse (10/day, >30 pack years) Smoking Status: Current every day smoker Meds Home Medications and Allergies Home Medications ?Medication ?Instructions ?Recorded ?Confirmed ?Type cetirizine 10 mg tablet 1 mg PO DAILY 11/27/21 02/11/22 History fluticasone propionate 50 2 spray intranasal DAILY 11/27/21 02/11/22 History mcg/actuation nasal spray,suspension mometasone-formoterol HFA 200 2 puff inhalation BID 11/27/21 02/11/22 History mcg-5 mcg/actuation aerosol inhaler montelukast 10 mg tablet 10 mg PO .Bedtime 11/27/21 02/11/22 History omeprazole 20 mg capsule,delayed 20 mg PO DAILY 11/27/21 02/11/22 History release trazodone 100 mg tablet 100 mg PO .Bedtime 11/27/21 02/11/22 History ziprasidone HCl 80 mg capsule 80 mg PO BID 11/27/21 02/11/22 History albuterol sulfate 90 mcg/actuation 2 puff inhalation Q4-6H PRN 11/29/21 02/11/22 History aerosol inhaler buspirone 10 mg tablet 5 mg PO BID 11/29/21 02/11/22 History Allergies Allergy/AdvReac Type Severity Reaction Status Date / Time No Known Drug Allergies Allergy Verified 02/11/22 10:38 Exam Narrative: Exam Narrative: General: Alert and oriented, no acute distress Respiratory: Equal breath rise bilaterally, maintained on room air CV: Well perfused Abdomen: Obese abdomen, mild distention, positive fluid shift sign. With deep palpation some diffuse tenderness but no guarding or rebound. Const: Vital Signs, click to edit/add: Vital Signs - 24 hr 06/09/24 12:23 Pulse Rate [Left P ulse Oximeter] 115 H Respiratory Rate 16 Blood Pressure [Le ft Arm] 118/87 Pulse Oximetry 98 Oxygen Delivery Me thod Room Air Results Labs Labs: No labs today. On chart review last hemoglobin from 06/01 12.6. Platelets 254. INR 1.4 on 05/31 Imaging Additional studies: Abdominal ultrasound performed today. Moderate amount of fluid in abdomen. Progress Note:A&P Assessment and plan (1) Ascites, malignant: Status: Acute Assessment and Plan: Patient is a 48-year-old female with recent diagnosis of malignant ascites. She has had a recent hospitalization and multiple paracentesis within the last 2 weeks (5). Today she has a moderate amount of fluid on ultrasound imaging and is minimally symptomatic. No complaints at this time of inability to have adequate p.o. intake, significant abdominal pain or shortness or breath. Risks and benefits of paracentesis were discussed at length with the patient. These risks include, but are not limited to: Infection, risk of underlying structures and bleeding. Patient is currently taking Xarelto, which increases her bleeding risk. After talking with the patient and reviewing her history I am not armani mmending paracentesis today. I do not think the patient needs to have drainage twice a week on a scheduled basis, but should instead schedule p.r.n. based off of symptoms. Patient would need to be off of her Xarelto for at least a day prior to the procedure. Given her recent diagnosis of bilateral pulmonary emboli she would likely need Lovenox bridging. I did encourage her to establish care with a primary doctor, which she is scheduled to see on 06/13/2024, who can help coordinate the procedures and management of her anticoagulation. All questions were addressed. She was encouraged to reach out with any significant change in her symptoms or concerns.
== END 2024-06-09 12:46 | disposition home or self-care (01) ==
PROVIDERS: PCP Family Medicine; Visit Provider Surgery
DX: R18.8 Other ascites (principal)
CPT/HCPCS: 76705